=== PATIENT | male | born 1965 | race Caucasian/White ===

== ENCOUNTER 2016-10-12 14:05 | Emergency (ER) | payer OTHER ==
[~2016-10-12 14:05] MED LIST: HUMAN PROTHROMBIN COMPLX 500 UNIT/16 ML VIAL IV ONE
--- NOTE | 2016-10-12 14:54 | ED ---
General Adult HPI - General Chief complaint: Nausea/Vomiting/Diarrhea Stated complaint: vomiting Time Seen by Provider: 10/12/16 14:12 Source: patient, EMS Mode of arrival: EMS Limitations: no limitations - History of Present Illness Initial comments: Patient is a super morbidly obese 51-year-old with history of A. fib on Coumadin , hypertension, renal disease presenting with nausea/vomiting for 4 days. Patient states he vomited 5 times in that timeframe. Patient states his vomit is dark brown and possibly bloody in nature. Patient has not tried anything for his vomiting. Patient denies sick contacts, recent antibiotics or travel. Patient is also complaining of decreased urination. Patient also claimed bilateral lower extremity wounds for which he is chronically on Bactrim. Patient states similar symptoms happen 2-3 years ago for which he went to [facility] and was then transferred to [facility]. Patient cannot tell me why he was transferred to [facility] - only that they had "better resources" for him. Patient states he was hospitalized for a month and a half and on dialysis. 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 Patient denies fever, chills, chest pain, shortness breath, diarrhea, abdominal pain. - Related Data Home Medications Medication Instructions Recorded Confirmed Ammonium Lactate Cream [Lac-Hydrin 1 applic TOPICAL BID 10/12/16 10/12/16 12% Cream] Aspirin EC [Ecotrin Low Dose] 81 mg PO DAILY 10/12/16 10/12/16 Furosemide [Lasix] 20 mg PO BID 10/12/16 10/12/16 Hydrocodone/Acetaminophen [[place] 1 tab PO Q6H PRN 10/12/16 10/12/16 10-325] Levothyroxine Sodium [Synthroid] 50 mcg PO DAILY 10/12/16 10/12/16 Lisinopril [Prinivil] 20 mg PO DAILY 10/12/16 10/12/16 Loratadine [Claritin] 10 mg PO DAILY 10/12/16 10/12/16 Methylphenidate HCl [Ritalin] 20 mg PO BID 10/12/16 10/12/16 Metoprolol Tartrate [Lopressor] 100 mg PO BID 10/12/16 10/12/16 Promethaz-Cod 6.25-10 mg/5 ml 5 ml PO Q6H PRN 10/12/16 10/12/16 [Phenergan with Codeine] Sulfamethox-Tmp 800-160Mg [Bactrim 1 tab PO Q12HR 10/12/16 10/12/16 DS 800-160 mg] Warfarin [Coumadin] 7.5 mg PO DAILY 10/12/16 10/12/16 Allergies Allergy/AdvReac Type Severity Reaction Status Date / Time No Known Allergies Allergy Verified 10/12/16 14:54 Review of Systems ROS Statement: Those systems with pertinent positive or pertinent negative responses have been documented in the HPI. Constitutional: No fever and no chills. HENT: No congestion, no rhinorrhea and no sore throat. Eyes: No discharge and no redness. Respiratory: No cough and no shortness of breath. Cardiovascular: No chest pain and no palpitations. Gastrointestinal: +nausea, +vomiting, no abdominal pain and no diarrhea. Genitourinary: No dysuria and no hematuria. +Decreased urination Musculoskeletal: No back pain and no arthralgias. Skin: + Wounds. No pallor and no rash. Neurological: No dizziness and No headaches. ROS Other: All systems not noted in ROS Statement are negative. Past Medical History Past Medical History: Atrial Fibrillation, Hypertension, Renal Disease Additional Past Medical History / Comment(s): lyphademia, History of Any Multi-Drug Resistant Organisms: None Reported Additional Past Surgical History / Comment(s): bilateral feet surgery, Past Psychological History: Anxiety Smoking Status: Former smoker Past Alcohol Use History: Rare Past Drug Use History: None Reported General Exam - General Exam Comments Initial Comments: Constitutional: Patient is super morbidly obese with a BMI of 78. Patient does not appear in any distress. Head: Normocephalic and atraumatic. Eyes: Conjunctivae and EOM are normal. Right eye exhibits no discharge. Left eye exhibits no discharge. No scleral icterus. Neck: Normal range of motion. Neck supple. Cardiovascular: Irregularly irregular rhythm No murmur heard. Pulmonary/Chest: Effort normal and breath sounds normal. No respiratory distress. No wheezes. Abdominal: Soft. Morbidly obese abdomen with diffuse tenderness. No rebound or guarding. Musculoskeletal: Patient with limited range of motion secondary to obesity. Neurological: Patient alert and oriented to person, place, and time. Skin: Patient with bilateral lower extremity redness extending to mid thigh. Right leg with open sores with foul smell. Nursing notes and vitals reviewed. Limitations: no limitations Course Vital Signs 10/12/16 10/12/16 14:10 14:59 Temperature 97.0 F L 97.5 F L Pulse Rate 110 H 60 Respiratory 24 20 Rate Blood Pressure 187/81 O2 Sat by Pulse 91 L 95 Oximetry - Reevaluation(s) Reevaluation #1: 10/12/16 16:[address] Johnson regarding patient's care. No response. 10/12/16 16:46 Dr. Johnson called back stating that he is comfortable with patient going to [facility]. EKG Findings - EKG Comments: EKG Findings:: EKG done at 14:44 shows ventricular rate of 96 bpm. A [address] or T-wave changes. Incomplete right bundle branch block. QTC duration 462 ms. Medical Decision Making - Medical Decision Making Patient is a 51-year-old male with history of A. fib on Coumadin, chronic leg ulcers on Bactrim presenting with nausea vomiting for 4 days with 4 episodes of dark vomit concerning for blood. Patient has concern that he is going into renal failure as he did so to 3 years ago and ended up at [facility]. Laboratory work showed patient had a sodium of 130, potassium 8.2, chloride 94, bicarbonate 18, BUN 118, creatinine 9.6. INR returned showing greater than 10. Given patient's concern for hematemesis and open wounds lower extremity bleeding patient was given vitamin K and PCC. EKG was completed showing no QRS widening. Patient's potassium was treated with calcium gluconate, insulin and dextrose, and Lasix. Discussed care with patient's PCP Dr. Johnson as well as the patient. They're requesting to go to [facility]. Discussed physical exam and diagnostic tests with patient. Questions answered and patient is agreeable to transfer to [facility]. Discussed H&P and pertinent diagnostic tests with Dr. Aguilera at [facility] who agrees with plan and accepts admission of patient. Bed to be assigned upon call back. - Lab Data Result diagrams: 10/12/16 14:44 10/12/16 14:44 Lab Results 10/12/16 10/12/16 10/12/16 Range/Units 14:44 14:44 14:44 WBC 6.2 (3.8-10.6) k/uL RBC 5.39 (4.30-5.90) m/uL Hgb 15.1 (13.0-17.5) gm/dL Hct 52.2 (39.0-53.0) % MCV 96.8 (80.0-100.0) fL MCH 28.0 (25.0-35.0) pg MCHC 28.9 L (31.0-37.0) g/dL RDW 19.3 H (11.5-15.5) % Plt Count 237 (150-450) k/uL Neutrophils % 85 % Lymphocytes % 6 % Monocytes % 7 % Eosinophils % 1 % Basophils % 0 % Neutrophils # 5.3 (1.3-7.7) k/uL Lymphocytes # 0.4 L (1.0-4.8) k/uL Monocytes # 0.4 (0-1.0) k/uL Eosinophils # 0.1 (0-0.7) k/uL Basophils # 0.0 (0-0.2) k/uL Hypochromasia Marked Poikilocytosis Slight Anisocytosis Slight Macrocytosis Slight PT (9.0-12.0) sec INR (<1.1) APTT (22.0-30.0) sec Sodium 130 L (137-145) mmol/L Potassium 8.2 H* (3.5-5.1) mmol/L Chloride 94 L (98-107) mmol/L Carbon Dioxide 18 L (22-30) mmol/L Anion Gap 18 mmol/L BUN 118 H* (9-20) mg/dL Creatinine 9.60 H* (0.66-1.25) mg/dL Est GFR (MDRD) Af Amer 7 (>60 ml/min/1.73 sqM) Est GFR (MDRD) Non-Af 6 (>60 ml/min/1.73 sqM) Glucose 89 (74-99) mg/dL Calcium 9.3 (8.4-10.2) mg/dL Magnesium 3.2 H (1.6-2.3) mg/dL Total Bilirubin 1.4 H (0.2-1.3) mg/dL AST 42 (17-59) U/L ALT 29 (21-72) U/L Alkaline Phosphatase 88 (38-126) U/L Total Protein 7.1 (6.3-8.2) g/dL Albumin 3.4 L (3.5-5.0) g/dL Lipase 280 (23-300) U/L Urine Color Urine Appearance (Clear) Urine pH (5.0-8.0) Ur Specific [place] (1.001-1.035) Urine Protein (Negative) Urine Glucose (UA) (Negative) Urine Ketones (Negative) Urine Blood (Negative) Urine Nitrate (Negative) Urine Bilirubin (Negative) Urine Urobilinogen (<2.0) mg/dL Ur Leukocyte Esterase (Negative) Urine RBC (0-5) /hpf Urine WBC (0-5) /hpf Ur Squamous Epith Cells (0-4) /hpf Hyaline Casts (0-2) /lpf Urine Mucus (None) /hpf Blood Type O Positive Blood Type Recheck No Antibody Screen NEGATIVE Spec Expiration Date 10/15/2016 - 234310/12/16 10/12/16 Range/Units 14:44 16:20 WBC (3.8-10.6) k/uL RBC (4.30-5.90) m/uL Hgb (13.0-17.5) gm/dL Hct (39.0-53.0) % MCV (80.0-100.0) fL MCH (25.0-35.0) pg MCHC (31.0-37.0) g/dL RDW (11.5-15.5) % Plt Count (150-450) k/uL Neutrophils % % Lymphocytes % % Monocytes % % Eosinophils % % Basophils % % Neutrophils # (1.3-7.7) k/uL Lymphocytes # (1.0-4.8) k/uL Monocytes # (0-1.0) k/uL Eosinophils # (0-0.7) k/uL Basophils # (0-0.2) k/uL Hypochromasia Poikilocytosis Anisocytosis Macrocytosis PT 112.5 H (9.0-12.0) sec INR >10.0 H* (<1.1) APTT 42.6 H (22.0-30.0) sec Sodium (137-145) mmol/L Potassium (3.5-5.1) mmol/L Chloride (98-107) mmol/L Carbon Dioxide (22-30) mmol/L Anion Gap mmol/L BUN (9-20) mg/dL Creatinine (0.66-1.25) mg/dL Est GFR (MDRD) Af Amer (>60 ml/min/1.73 sqM) Est GFR (MDRD) Non-Af (>60 ml/min/1.73 sqM) Glucose (74-99) mg/dL Calcium (8.4-10.2) mg/dL Magnesium (1.6-2.3) mg/dL Total Bilirubin (0.2-1.3) mg/dL AST (17-59) U/L ALT (21-72) U/L Alkaline Phosphatase (38-126) U/L Total Protein (6.3-8.2) g/dL Albumin (3.5-5.0) g/dL Lipase (23-300) U/L Urine Color Red Urine Appearance Turbid (Clear) Urine pH 5.0 (5.0-8.0) Ur Specific [place] 1.012 (1.001-1.035) Urine Protein 1+ H (Negative) Urine Glucose (UA) Negative (Negative) Urine Ketones Negative (Negative) Urine Blood Large H (Negative) Urine Nitrate Negative (Negative) Urine Bilirubin Negative (Negative) Urine Urobilinogen 2.0 (<2.0) mg/dL Ur Leukocyte Esterase Moderate H (Negative) Urine RBC >182 H (0-5) /hpf Urine WBC 5 (0-5) /hpf Ur Squamous Epith Cells 1 (0-4) /hpf Hyaline Casts 7 H (0-2) /lpf Urine Mucus Rare H (None) /hpf Blood Type Blood Type Recheck Antibody Screen Spec Expiration Date Disposition Clinical Impression: Nausea & vomiting, Hematemesis, Elevated INR, Hyperkalemia, Acute renal failure , Cellulitis Disposition: OTHER INSTITUTION NOT DEFINED Condition: Fair - Out of Hospital Transfer - Req. Specs Out of Hospital Transfer - Requested Specifics: Medical ICU ([facility])
[2016-10-12] MEDS ORDERED: METOCLOPRAMIDE 5 MG/ML 2 ML VIAL IVP STA (15:28)
[2016-10-12] MEDS ORDERED: diphenhydrAMINE 50 MG/ML 1 ML VIAL IVP STA (15:28)
[2016-10-12] MEDS ORDERED: SODIUM CHLORIDE 0.9% 1,000 ML IV STA (15:29)
[2016-10-12 15:30] LABS: Partial Thromboplastin Time 42.6 sec (22.0-30.0); Prothrombin Time 112.5 sec (9.0-12.0)
[2016-10-12 15:33] LABS: Anisocytosis Slight; Basophils % (A) 0 %; CH 29.4; CHCM 30.5; Eosinophils # (A) 0.1 k/uL (0-0.7); Eosinophils % (A) 1 %; HCT 52.2 % (39.0-53.0); HDW 3.44; HGB 15.1 gm/dL (13.0-17.5); Hypochromasia Marked; Luc # (Auto) 0.05; Luc % (Auto) 1; Lymphocytes # (A) 0.4 k/uL (1.0-4.8); Lymphocytes % (A) 6 %; MCHC 28.9 g/dL (31.0-37.0); MCV 96.8 fL (80.0-100.0); Macrocytosis Slight; Mean Platelet Volume 8.8; Monocytes # (A) 0.4 k/uL (0-1.0); Monocytes % (A) 7 %; Neutrophils # (A) 5.3 k/uL (1.3-7.7); Neutrophils % (A) 85 %; Poikilocytosis Slight; RBC 5.39 m/uL (4.30-5.90); RDW 19.3 % (11.5-15.5); WBC 6.2 k/uL (3.8-10.6); WBC (Perox) 5.88
[2016-10-12 15:36] LABS: Calcium 9.3 mg/dL (8.4-10.2); Magnesium 3.2 mg/dL (1.6-2.3); Total Bilirubin 1.4 mg/dL (0.2-1.3); Total Protein 7.1 g/dL (6.3-8.2)
[2016-10-12 15:41] LABS: Potassium 8.2 mmol/L (3.5-5.1)
[2016-10-12] MEDS ORDERED: DEXTROSE 50%-WATER 50 ML SYRINGE IVP STA (15:42)
[2016-10-12] MEDS ORDERED: FUROSEMIDE 10 MG/ML 4 ML VIAL IV STA (15:42)
[2016-10-12 16:00] LABS: INR >10.0 (<1.1)
[2016-10-12] MEDS ORDERED: CALCIUM GLUCONATE 1,000 MG in SODIUM CHLORIDE 0.9% 100 ML IVPB ONE ×2 (16:00→18:45)
[2016-10-12] MEDS ORDERED: PHYTONADIONE 10 MG in SODIUM CHLORIDE 0.9% 50 ML IVPB STA (16:07)
[2016-10-12] MEDS ORDERED: HUMAN PROTHROMBIN COMPLX IV ONE ×2 (16:07→16:30)
[2016-10-12 16:40] LABS: Appearance,Urine Turbid (Clear); Bilirubin,Urine Negative (Negative); Glucose,Urine (UA) Negative (Negative); Ketones,Urine Negative (Negative); Leukocyte Esterase,Urine Moderate (Negative); Mucus,Urine Rare /hpf; Nitrite,Urine Negative (Negative); Particle Count 18348; Protein,Urine 1+ (Negative); RBC,Urine >182 /hpf (0-5); Specific Gravity,Urine 1.012 (1.001-1.035); Squamous Epithelial Cell,Urine 1 /hpf (0-4); UA Billing (MACRO vs. MICRO) MICRO; WBC,Urine 5 /hpf (0-5)
[2016-10-12 17:10] LABS: Potassium 7.5 mmol/L (3.5-5.1)
[2016-10-12 17:11] LABS: Phosphorous 11.3 mg/dL (2.5-4.5)
--- NOTE | 2016-10-12 18:10 | ED ---
Medical Decision Making - Medical Decision Making Potassium downturning. No EKG changes. - Lab Data Result diagrams: 10/12/16 14:44 10/12/16 16:30 Lab Results 10/12/16 10/12/16 10/12/16 Range/Units 14:44 14:44 14:44 WBC 6.2 (3.8-10.6) k/uL RBC 5.39 (4.30-5.90) m/uL Hgb 15.1 (13.0-17.5) gm/dL Hct 52.2 (39.0-53.0) % MCV 96.8 (80.0-100.0) fL MCH 28.0 (25.0-35.0) pg MCHC 28.9 L (31.0-37.0) g/dL RDW 19.3 H (11.5-15.5) % Plt Count 237 (150-450) k/uL Neutrophils % 85 % Lymphocytes % 6 % Monocytes % 7 % Eosinophils % 1 % Basophils % 0 % Neutrophils # 5.3 (1.3-7.7) k/uL Lymphocytes # 0.4 L (1.0-4.8) k/uL Monocytes # 0.4 (0-1.0) k/uL Eosinophils # 0.1 (0-0.7) k/uL Basophils # 0.0 (0-0.2) k/uL Hypochromasia Marked Poikilocytosis Slight Anisocytosis Slight Macrocytosis Slight PT (9.0-12.0) sec INR (<1.1) APTT (22.0-30.0) sec Sodium 130 L (137-145) mmol/L Potassium 8.2 H* (3.5-5.1) mmol/L Chloride 94 L (98-107) mmol/L Carbon Dioxide 18 L (22-30) mmol/L Anion Gap 18 mmol/L BUN 118 H* (9-20) mg/dL Creatinine 9.60 H* (0.66-1.25) mg/dL Est GFR (MDRD) Af Amer 7 (>60 ml/min/1.73 sqM) Est GFR (MDRD) Non-Af 6 (>60 ml/min/1.73 sqM) Glucose 89 (74-99) mg/dL Plasma Lactic Acid [place] (0.7-2.0) mmol/L Calcium 9.3 (8.4-10.2) mg/dL Phosphorus (2.5-4.5) mg/dL Magnesium 3.2 H (1.6-2.3) mg/dL Total Bilirubin 1.4 H (0.2-1.3) mg/dL AST 42 (17-59) U/L ALT 29 (21-72) U/L Alkaline Phosphatase 88 (38-126) U/L Total Protein 7.1 (6.3-8.2) g/dL Albumin 3.4 L (3.5-5.0) g/dL Lipase 280 (23-300) U/L Urine Color Urine Appearance (Clear) Urine pH (5.0-8.0) Ur Specific [place] (1.001-1.035) Urine Protein (Negative) Urine Glucose (UA) (Negative) Urine Ketones (Negative) Urine Blood (Negative) Urine Nitrate (Negative) Urine Bilirubin (Negative) Urine Urobilinogen (<2.0) mg/dL Ur Leukocyte Esterase (Negative) Urine RBC (0-5) /hpf Urine WBC (0-5) /hpf Ur Squamous Epith Cells (0-4) /hpf Hyaline Casts (0-2) /lpf Urine Mucus (None) /hpf Blood Type O Positive Blood Type Recheck No Antibody Screen NEGATIVE Spec Expiration Date 10/15/2016 - 234310/12/16 10/12/16 10/12/16 Range/Units 14:44 16:20 16:30 WBC (3.8-10.6) k/uL RBC (4.30-5.90) m/uL Hgb (13.0-17.5) gm/dL Hct (39.0-53.0) % MCV (80.0-100.0) fL MCH (25.0-35.0) pg MCHC (31.0-37.0) g/dL RDW (11.5-15.5) % Plt Count (150-450) k/uL Neutrophils % % Lymphocytes % % Monocytes % % Eosinophils % % Basophils % % Neutrophils # (1.3-7.7) k/uL Lymphocytes # (1.0-4.8) k/uL Monocytes # (0-1.0) k/uL Eosinophils # (0-0.7) k/uL Basophils # (0-0.2) k/uL Hypochromasia Poikilocytosis Anisocytosis Macrocytosis PT 112.5 H (9.0-12.0) sec INR >10.0 H* (<1.1) APTT 42.6 H (22.0-30.0) sec Sodium (137-145) mmol/L Potassium (3.5-5.1) mmol/L Chloride (98-107) mmol/L Carbon Dioxide (22-30) mmol/L Anion Gap mmol/L BUN (9-20) mg/dL Creatinine (0.66-1.25) mg/dL Est GFR (MDRD) Af Amer (>60 ml/min/1.73 sqM) Est GFR (MDRD) Non-Af (>60 ml/min/1.73 sqM) Glucose (74-99) mg/dL Plasma Lactic Acid [place] 1.5 (0.7-2.0) mmol/L Calcium (8.4-10.2) mg/dL Phosphorus (2.5-4.5) mg/dL Magnesium (1.6-2.3) mg/dL Total Bilirubin (0.2-1.3) mg/dL AST (17-59) U/L ALT (21-72) U/L Alkaline Phosphatase (38-126) U/L Total Protein (6.3-8.2) g/dL Albumin (3.5-5.0) g/dL Lipase (23-300) U/L Urine Color Red Urine Appearance Turbid (Clear) Urine pH 5.0 (5.0-8.0) Ur Specific [place] 1.012 (1.001-1.035) Urine Protein 1+ H (Negative) Urine Glucose (UA) Negative (Negative) Urine Ketones Negative (Negative) Urine Blood Large H (Negative) Urine Nitrate Negative (Negative) Urine Bilirubin Negative (Negative) Urine Urobilinogen 2.0 (<2.0) mg/dL Ur Leukocyte Esterase Moderate H (Negative) Urine RBC >182 H (0-5) /hpf Urine WBC 5 (0-5) /hpf Ur Squamous Epith Cells 1 (0-4) /hpf Hyaline Casts 7 H (0-2) /lpf Urine Mucus Rare H (None) /hpf Blood Type Blood Type Recheck Antibody Screen Spec Expiration Date 10/12/16 Range/Units 16:30 WBC (3.8-10.6) k/uL RBC (4.30-5.90) m/uL Hgb (13.0-17.5) gm/dL Hct (39.0-53.0) % MCV (80.0-100.0) fL MCH (25.0-35.0) pg MCHC (31.0-37.0) g/dL RDW (11.5-15.5) % Plt Count (150-450) k/uL Neutrophils % % Lymphocytes % % Monocytes % % Eosinophils % % Basophils % % Neutrophils # (1.3-7.7) k/uL Lymphocytes # (1.0-4.8) k/uL Monocytes # (0-1.0) k/uL Eosinophils # (0-0.7) k/uL Basophils # (0-0.2) k/uL Hypochromasia Poikilocytosis Anisocytosis Macrocytosis PT (9.0-12.0) sec INR (<1.1) APTT (22.0-30.0) sec Sodium (137-145) mmol/L Potassium 7.5 H* (3.5-5.1) mmol/L Chloride (98-107) mmol/L Carbon Dioxide (22-30) mmol/L Anion Gap mmol/L BUN (9-20) mg/dL Creatinine (0.66-1.25) mg/dL Est GFR (MDRD) Af Amer (>60 ml/min/1.73 sqM) Est GFR (MDRD) Non-Af (>60 ml/min/1.73 sqM) Glucose (74-99) mg/dL Plasma Lactic Acid [place] (0.7-2.0) mmol/L Calcium (8.4-10.2) mg/dL Phosphorus 11.3 H* (2.5-4.5) mg/dL Magnesium (1.6-2.3) mg/dL Total Bilirubin (0.2-1.3) mg/dL AST (17-59) U/L ALT (21-72) U/L Alkaline Phosphatase (38-126) U/L Total Protein (6.3-8.2) g/dL Albumin (3.5-5.0) g/dL Lipase (23-300) U/L Urine Color Urine Appearance (Clear) Urine pH (5.0-8.0) Ur Specific [place] (1.001-1.035) Urine Protein (Negative) Urine Glucose (UA) (Negative) Urine Ketones (Negative) Urine Blood (Negative) Urine Nitrate (Negative) Urine Bilirubin (Negative) Urine Urobilinogen (<2.0) mg/dL Ur Leukocyte Esterase (Negative) Urine RBC (0-5) /hpf Urine WBC (0-5) /hpf Ur Squamous Epith Cells (0-4) /hpf Hyaline Casts (0-2) /lpf Urine Mucus (None) /hpf Blood Type Blood Type Recheck Antibody Screen Spec Expiration Date Critical Care Time Critical Care Time: Yes Total Critical Care Time: 45 Critical Care Time: Critical care time was exclusive of separately billable procedures and treating other patients and teaching time. Critical-care was necessary to treat or prevent minute or life-threatening deterioration of the following conditions: Acute renal failure, hypercalcemia, acute blood loss in the setting of elevated INR greater than 10. Critical care time was spent her seen by me of the following activities: Discussion with primary care doctor and transferring facility, evaluation and reevaluation of patient's response to treatment, obtaining history, ordering and reviewing laboratory studies, monitoring vital signs, reevaluation of patient's condition . Disposition Clinical Impression: Nausea & vomiting, Hematemesis, Elevated INR, Hyperkalemia, Acute renal failure , Cellulitis Disposition: OTHER INSTITUTION NOT DEFINED Condition: Fair Referrals: Raul Johnson MD [Primary Care Provider] - 1-2 days - Out of Hospital Transfer - Req. Specs Out of Hospital Transfer - Requested Specifics: Medical ICU ([facility])
[2016-10-12 18:27] LABS: Prothrombin Time 19.2 sec (9.0-12.0)
[2016-10-12] MEDS: INSULIN REGULAR 100 UNIT/ML VIAL IV ONE ×2 (18:53→19:01)
[2016-10-12 20:18] VITALS: RESP 20
[2016-10-12 21:31] VITALS: BP 134/88; PULSE 89; TEMP 97.8
== END 2016-10-12 22:32 ==
LOC: EC 14:05
DX: N17.9 Acute kidney failure, unspecified (principal); K92.0 Hematemesis; E87.5 Hyperkalemia; R79.1 Abnormal coagulation profile; E66.01 Morbid (severe) obesity due to excess calories; I10 Essential (primary) hypertension; Z68.45 Body mass index [BMI] 70 or greater, adult; I48.91 Unspecified atrial fibrillation; L03.119 Cellulitis of unspecified part of limb; L97.909 Non-pressure chronic ulcer of unspecified part of unspecified lower leg with unspecified severity; Z79.01 Long term (current) use of anticoagulants; Z79.2 Long term (current) use of antibiotics; Z79.82 Long term (current) use of aspirin; Z79.899 Other long term (current) drug therapy; Z87.891 Personal history of nicotine dependence; Z99.2 Dependence on renal dialysis
CPT/HCPCS: 99291; 36415; 93005; 86900; 86901; 80053; 83605; 83690; 83735; 84100; 84132; 85025; 85610; 85730; 86850; 81001; 87040; 87086; 96365; 96366 ×4; 96367; 96375 ×4; 96361; J3430; J1200; J1940; J2765; J0610; C9132

== ENCOUNTER 2016-11-05 02:42 | Inpatient (IN) | payer OTHER ==
[2016-11-05] MEDS ORDERED: IPRATROPIUM-ALBUTEROL 3 ML NEB INHALATION STA (03:26)
[2016-11-05] MEDS ORDERED: PANTOPRAZOLE 40 MG/10 ML VIAL IVP STA (03:26)
[2016-11-05] MEDS ORDERED: ONDANSETRON 4 MG/2 ML VIAL IVP STA (03:26)
[2016-11-05] MEDS ORDERED: SODIUM CHLORIDE 0.9% 1,000 ML IV STA ×2 (03:26)
--- NOTE | 2016-11-05 03:28 | ED ---
General Adult HPI - General Chief complaint: GI Bleed Stated complaint: Rectal Bleed Time Seen by Provider: 11/05/16 03:26 Source: patient, EMS, RN notes reviewed, old records reviewed Mode of arrival: EMS Limitations: physical limitation - History of Present Illness Initial comments: This is a 51-year-old male by today for evaluation of GI bleed, blood in his stool. Patient states that he noticed blood in his stool earlier today. Patient normally does go to bedroom at the side of the bed but since has been hospitalizes viably get out of bed, distal medial thigh but They noticed blood in his stool earlier today. Patient has had no lightheadedness no dizziness no syncope. He is on blood thinners which she stopped taking 2 days ago secondary to elevated INR. No history of blood in his stool. No bowel pain no nausea or vomiting of blood, no nausea or vomiting. - Related Data Home Medications Medication Instructions Recorded Confirmed Ammonium Lactate Cream [Lac-Hydrin 1 applic TOPICAL BID 10/12/16 10/12/16 12% Cream] Aspirin EC [Ecotrin Low Dose] 81 mg PO DAILY 10/12/16 10/12/16 Hydrocodone/Acetaminophen [[place] 1 tab PO Q6H PRN 10/12/16 10/12/16 10-325] Loratadine [Claritin] 10 mg PO DAILY 10/12/16 10/12/16 Methylphenidate HCl [Ritalin] 20 mg PO BID 10/12/16 10/12/16 Metoprolol Tartrate [Lopressor] 50 mg PO BID 10/12/16 10/12/16 Promethaz-Cod 6.25-10 mg/5 ml 5 ml PO Q6H PRN 10/12/16 10/12/16 [Phenergan with Codeine] Warfarin [Coumadin] 7.5 mg PO DAILY 10/12/16 10/12/16 Allergies Allergy/AdvReac Type Severity Reaction Status Date / Time No Known Allergies Allergy Verified 10/12/16 14:54 Review of Systems ROS Statement: Those systems with pertinent positive or pertinent negative responses have been documented in the HPI. ROS Other: All systems not noted in ROS Statement are negative. Past Medical History Past Medical History: Atrial Fibrillation, Hypertension, Renal Disease Additional Past Medical History / Comment(s): lyphademia, cellulitis History of Any Multi-Drug Resistant Organisms: None Reported Additional Past Surgical History / Comment(s): bilateral feet surgery, Past Psychological History: Anxiety Smoking Status: Former smoker Past Alcohol Use History: Rare Past Drug Use History: None Reported General Exam Limitations: physical limitation General appearance: alert, in no apparent distress, obese Head exam: Present: atraumatic, normocephalic, normal inspection Eye exam: Present: normal appearance, PERRL, EOMI. Absent: scleral icterus, conjunctival injection, periorbital swelling ENT exam: Present: normal exam, mucous membranes moist Neck exam: Present: normal inspection. Absent: tenderness, meningismus, lymphadenopathy Respiratory exam: Present: normal lung sounds bilaterally. Absent: respiratory distress, wheezes, rales, rhonchi, stridor Cardiovascular Exam: Present: regular rate, normal rhythm, normal heart sounds. Absent: systolic murmur, diastolic murmur, rubs, gallop, clicks GI/Abdominal exam: Present: soft, normal bowel sounds. Absent: distended, tenderness, guarding, rebound, rigid Extremities exam: Present: normal inspection, full ROM, normal capillary refill. Absent: tenderness, pedal edema, joint swelling, calf tenderness Back exam: Present: normal inspection Neurological exam: Present: alert, oriented X3, CN II-XII intact Psychiatric exam: Present: normal affect, normal mood Skin exam: Present: warm, dry, intact, normal color. Absent: rash Course Vital Signs 11/05/16 02:57 Temperature 97.1 F L Pulse Rate 92 Respiratory 18 Rate Blood Pressure 103/51 O2 Sat by Pulse 92 L Oximetry - Reevaluation(s) Reevaluation #1: 11/05/16 03:38 Patient has had positive blood in his stool 11/05/16 03:38 , 2 bloody bowel movements, loose Reevaluation #2: 11/05/16 03:38 Patient does admit to be gained to feel lightheaded EKG Findings - EKG Comments: EKG Findings:: EKG shows normal sinus rhythm rate 93, OH 170, QRS 92, QTc 465. Repeat. EKG shows A. fib with RVR rate 132, QRS 96, QTC 471 Medical Decision Making - Medical Decision Making 48 female ER for possible GI bleed. Patient given transfusion and ER, [place] ICU for monitoring of Florinef status. Patient critically ill, hemodynamically unstable. - Radiology Data Radiology results: report reviewed (Chest x-ray portable negative for acute disease), image reviewed Critical Care Time Critical Care Time: Yes Total Critical Care Time: 31 Disposition Clinical Impression: Atrial fibrillation with RVR, Gastrointestinal hemorrhage, Anemia, Obesity Disposition: ADMITTED IP TO THIS HOSP Condition: Critical Instructions: Gastrointestinal Bleeding (ED) Referrals: Raul Johnson MD [Primary Care Provider] - 1-2 days
[2016-11-05] MEDS ORDERED: PHYTONADIONE 5 MG in SODIUM CHLORIDE 0.9% 50 ML IVPB STA ×2 (03:34→04:12)
[2016-11-05] MEDS ORDERED: NALOXONE 0.4 MG/ML 1 ML VIAL IV PRN (03:40)
[2016-11-05 03:46] LABS: Anisocytosis Slight; HDW 3.36; Hypochromasia Marked; MCV 99.2 fL (80.0-100.0); Macrocytosis Slight
[2016-11-05 03:55] LABS: Basophils # (A) 0.1 k/uL (0-0.2); Basophils % (A) 1 %; CH 29.1; CHCM 29.5; Eosinophils # (A) 0.4 k/uL (0-0.7); Eosinophils % (A) 4 %; Luc # (Auto) 0.18; Luc % (Auto) 2; Lymphocytes # (A) 1.5 k/uL (1.0-4.8); Lymphocytes % (A) 16 %; MCH 28.2 pg (25.0-35.0); MCHC 28.4 g/dL (31.0-37.0); Mean Platelet Volume 8.8; Monocytes # (A) 0.6 k/uL (0-1.0); Monocytes % (A) 7 %; Neutrophils # (A) 6.6 k/uL (1.3-7.7); Neutrophils % (A) 71 %; RBC 4.13 m/uL (4.30-5.90); RDW 18.8 % (11.5-15.5); WBC 9.3 k/uL (3.8-10.6); WBC (Perox) 9.33
[2016-11-05 04:00] LABS: Partial Thromboplastin Time 38.7 sec (22.0-30.0)
[2016-11-05] MEDS ORDERED: DILTIAZEM 5 MG/ML 5 ML VIAL IVP STA (04:01)
[2016-11-05 04:02] LABS: HGB 11.6 gm/dL (13.0-17.5)
[2016-11-05 04:08] LABS: Creatine Kinase 25 U/L (55-170)
[2016-11-05 04:09] LABS: Calcium 8.1 mg/dL (8.4-10.2); INR 8.2 (<1.1); Magnesium 1.9 mg/dL (1.6-2.3); Potassium 5.6 mmol/L (3.5-5.1); Total Bilirubin 0.9 mg/dL (0.2-1.3); Total Protein 5.7 g/dL (6.3-8.2)
[2016-11-05] MEDS ORDERED: cefTRIAXone 2,000 MG in SODIUM CHLORIDE 0.9% 100 ML IVPB STA (04:13)
[2016-11-05 04:20] LABS: Creatine Kinase MB 0.4 ng/mL (0.0-2.4); Troponin I <0.012 ng/mL (0.000-0.034)
--- NOTE | 2016-11-05 04:36 | XR ---
EXAMINATION TYPE: XR chest 1V portable DATE OF EXAM: 11/05/2016 4:28 AM COMPARISON: NONE HISTORY: Rectal bleeding TECHNIQUE: Single frontal view of the chest is obtained. FINDINGS: There is no heart failure nor confluent pneumonic infiltrate. There are chest leads. There is no evidence of pleural effusion. IMPRESSION: No active cardiopulmonary disease.
[2016-11-05 06:08] LABS: Glucose,Whole Blood 136 mg/dL (75-99)
[2016-11-05] MEDS ORDERED: SODIUM CHLORIDE 0.9% 1,000 ML IV ONE (07:15)
--- NOTE | 2016-11-05 08:54 | P.NPCON ---
History of Present Illness - Reason for Consult Consult date: 11/05/16 acute renal failure, chronic renal failure - Chief Complaint Gi bleed. - History of Present Illness 51 yo morbidly obese, bed bound at home male came in with bloody stools the past several days. He was hypotensive in the ED. Hb was 11.2. He is receiving 2 units PRBC. INR was 8.2 which he held two days ago. He has a creat 2.3. No previous creat to compare. however, He was at [facility] last month with Dialysis dependent KIRAN due to sepsis but did recover. He had a similar episode 3 years ago of HD dependent KIRAN due to sepsis. He never required outpatient HD. He does not follow with a [employer] supervisor. He is alert, no distress, not on pressor support. He denies NSAIDS. He was taking keflex. UA showed RBCs and +1 protein. Review of Systems All systems: negative Past Medical History Past Medical History: Atrial Fibrillation, Hypertension, Renal Disease Additional Past Medical History / Comment(s): lyphademia, cellulitis History of Any Multi-Drug Resistant Organisms: None Reported Additional Past Surgical History / Comment(s): bilateral feet surgery, Past Psychological History: Anxiety Smoking Status: Former smoker Past Alcohol Use History: Rare Past Drug Use History: None Reported Medications and Allergies Home Medications Medication Instructions Recorded Confirmed Type Ammonium Lactate Cream [Lac-Hydrin 1 applic TOPICAL BID 10/12/16 10/12/16 History 12% Cream] Aspirin EC [Ecotrin Low Dose] 81 mg PO DAILY 10/12/16 10/12/16 History Hydrocodone/Acetaminophen [[place] 1 tab PO Q6H PRN 10/12/16 10/12/16 History 10-325] Loratadine [Claritin] 10 mg PO DAILY 10/12/16 10/12/16 History Methylphenidate HCl [Ritalin] 20 mg PO BID 10/12/16 10/12/16 History Metoprolol Tartrate [Lopressor] 50 mg PO BID 10/12/16 10/12/16 History Promethaz-Cod 6.25-10 mg/5 ml 5 ml PO Q6H PRN 10/12/16 10/12/16 History [Phenergan with Codeine] Warfarin [Coumadin] 7.5 mg PO DAILY 10/12/16 10/12/16 History Allergies Allergy/AdvReac Type Severity Reaction Status Date / Time No Known Allergies Allergy Verified 10/12/16 14:54 Physical Exam Vitals: Vital Signs Temp Pulse Resp BP Pulse Ox 11/05/16 07:30 98.1 F 136 H 19 80/64 93 L 11/05/16 05:35 97.3 F L 80 16 140/80 94 L 11/05/16 05:20 97.1 F L 81 18 159/98 11/05/16 04:07 151 H 18 84/49 92 L Intake and Output 11/04/16 11/05/16 11/05/16 22:59 06:59 14:59 Intake Total 0 310 Balance 0 310 Intake: Blood Product 0 310 Rc Pheresis As-3 Unit 0 310 [id number] Rc Pheresis As3 Unit 0 [id number] - Constitutional General appearance: cooperative, no acute distress - Respiratory Respiratory: bilateral: diminished - Cardiovascular Rhythm: regular Heart sounds: normal: S1, S2 leg Peripheral Edema: bilateral: 1+ - Gastrointestinal General gastrointestinal: soft Results - Lab Results Most recent lab results Calcium 8.1 mg/dL (8.4-10.2) L 11/05/16 03:30 Magnesium 1.9 mg/dL (1.6-2.3) 11/05/16 03:30 11/05/16 03:30 11/05/16 03:30 Assessment and Plan Plan: Assessment 1. KIRAN (due to Ischemic ATN from GI Bleeding) vs. CKD (with h/o HD dependent KIRAN x2 in the past 3 years most recently last month). 2. Hemorrhagic Shock due to GI bleeding. 3. Hyperkalemia- Mild. 4. Morbid Obesity. Recommendations: 1. Continue 0.9NS 125ml/hr. 2. Check PVR. 3. Recheck lytes 4. GI evaluation. 5. Monitor UOP.
[2016-11-05] MEDS: NOREPINEPHRINE 4 MG in SODIUM CHLORIDE 0.9% 250 ML IV SCH ×4 (08:57→15:31)
[2016-11-05 09:15] LABS: ABG PH 7.34 (7.35-7.45)
[2016-11-05 09:16] LABS: ABG Base Excess -4.9 mmol/L; ABG HCO3 20 mmol/L (21-25); ABG PCO2 38 mmHg (35-45); ABG PO2 75 mmHg (83-108); ABG TCO2 21 mmol/L (19-24)
[2016-11-05] MEDS ORDERED: IV VANCOMYCIN PER PHARMACY 1 EACH MISC MISCELLANE PRN (09:44)
--- NOTE | 2016-11-05 09:52 | P.GSCN ---
History of Present Illness Consult date: 11/05/16 Reason for Consult: Inability to pass catheter History of present illness: The patient is a bedridden morbidly obese gentleman at 290 kg. He was admitted to the hospital with GI bleeding. The intensive care staff requests a Mcknight catheter in due to his morbid obesity and the nursing staff was unable to do so. I've been asked to see the patient. He has no other urologic history. He did have acute kidney injury due to sepsis treated at [facility] recently. He states that he has been urinating okay. Review of Systems As per the history and physical Past Medical History Past Medical History: Atrial Fibrillation, Hypertension, Renal Disease Additional Past Medical History / Comment(s): lyphademia, cellulitis History of Any Multi-Drug Resistant Organisms: None Reported Additional Past Surgical History / Comment(s): bilateral feet surgery, Past Psychological History: Anxiety Smoking Status: Former smoker Past Alcohol Use History: Rare Past Drug Use History: None Reported Medications and Allergies Home Medications Medication Instructions Recorded Confirmed Type Ammonium Lactate Cream [Lac-Hydrin 1 applic TOPICAL BID 10/12/16 10/12/16 History 12% Cream] Aspirin EC [Ecotrin Low Dose] 81 mg PO DAILY 10/12/16 10/12/16 History Hydrocodone/Acetaminophen [[place] 1 tab PO Q6H PRN 10/12/16 10/12/16 History 10-325] Loratadine [Claritin] 10 mg PO DAILY 10/12/16 10/12/16 History Methylphenidate HCl [Ritalin] 20 mg PO BID 10/12/16 10/12/16 History Metoprolol Tartrate [Lopressor] 50 mg PO BID 10/12/16 10/12/16 History Promethaz-Cod 6.25-10 mg/5 ml 5 ml PO Q6H PRN 10/12/16 10/12/16 History [Phenergan with Codeine] Warfarin [Coumadin] 7.5 mg PO DAILY 10/12/16 10/12/16 History Allergies Allergy/AdvReac Type Severity Reaction Status Date / Time No Known Allergies Allergy Verified 10/12/16 14:54 Surgical - Exam Vital Signs Temp Pulse Resp BP Pulse Ox 97.1 F L 92 18 103/51 92 L 11/05/16 02:57 11/05/16 02:57 11/05/16 02:57 11/05/16 02:57 11/05/16 02:57 - General moderate distress, obese - Eyes PERRL - ENT no hearing loss - Neck trachea midline - Respiratory normal respiratory effort - Cardiovascular Heart Rate: 135 - Abdomen Obese - Genitourinary Uncircumcised with markedly recessed phallus due to morbid obesity. - Integumentary Chronic lower extremity brawny edema - Psychiatric oriented to time, oriented to person, oriented to place Results - Labs 11/05/16 03:30 11/05/16 03:30 Abnormal Lab Results - Last 24 Hours (Table) 11/05/16 11/05/16 Range/Units 06:05 08:39 ABG pH 7.34 L (7.35-7.45) ABG pO2 75 L (83-108) mmHg ABG HCO3 20 L (21-25) mmol/L POC Glucose (mg/dL) 136 H (75-99) mg/dL Assessment and Plan Plan: Impression: Inability to pass catheter due to morbid obesity. Acute GI bleed. Morbid obesity. Multiple medical issues. Recommendations: Catheter placement.
--- NOTE | 2016-11-05 09:54 | P.PCN ---
Date of Procedure: 11/05/16 Preoperative Diagnosis: Inability to pass catheter due to morbid obesity Postoperative Diagnosis: Same Procedure(s) Performed: Catheter placement Anesthesia: none Surgeon: Carl Darnell Indications for Procedure: The patient is in the hospital with a GI bleed. He is morbidly obese and probably over 600 pounds. The nursing staff is asked for catheter placement Description of Procedure: The patient was prepped and draped sterilely. It requires 2 nurses to help retract the pannus and scrotum. I'm able to slowly expose the penis. I advanced a 16-Bengali Mcknight catheter into the bladder with concentrated cloudy looking urine. The catheter should remain in place until the medical staff wishes to remove it. No further urologic intervention is required.
[2016-11-05] MEDS ORDERED: SODIUM CHLORIDE 0.9% 99 ML with VASOPRESSIN 20 UNIT IV SCH ×2 (10:00)
[2016-11-05] MEDS ORDERED: PIPERACILLIN-TAZOBACTAM 3.375 GM in DEXTROSE/WATER 1 50ML.BAG IVPB SCH (10:00)
[2016-11-05] MEDS ORDERED: DEXTROSE 5% IN WATER 100 ML with AMIODARONE 150 MG IV ONE (10:45)
[2016-11-05] MEDS: IPRATROPIUM-ALBUTEROL 3 ML NEB INHALATION SCH ×5 (10:49→19:46)
[2016-11-05] MEDS: AMIODARONE 450 MG in DEXTROSE 5% IN WATER 250 ML IV SCH ×4 (10:58→17:00)
[2016-11-05] MEDS: SODIUM CHLORIDE 0.9% 1,000 ML IV SCH ×2 (10:59→16:32)
--- NOTE | 2016-11-05 11:57 | CONS ---
DATE OF CONSULTATION: 11/05/2016 REQUESTING PHYSICIAN: Dr. Cee. REASON FOR CONSULTATION: Acute GI bleed. HISTORY OF PRESENT ILLNESS: The patient is a 51-year-old morbidly obese male who was admitted to the hospital when he presented to the emergency room last night with hypotension and acute GI bleed. Apparently he started noticing maroon -colored stools around 7:00 p.m. last night and around 10:00 he had another episode of maroon-colored stools approximately 100 to 200 mL as per his . At that point he became very concerned and had an episode of coffee-ground emesis at home and came into the emergency room. While in the ER, he had another episode of large bloody bowel movement. He was noted to be hypotensive and was resuscitated with some fluid in the ER. His initial hemoglobin was 11, but about 2 weeks ago his hemoglobin was 15 g/dL. He has history of A. fib and has been on Coumadin and has been not taking it for 2 days as he was told his INR was high. In the ER, INR was 8.2 and received 10 mg of vitamin K and subsequently transferred to the intensive care unit. Since being in the ER, he did not have any further episodes of GI bleeding. He had an ( ) System in place and small amount of blood around the ( ) tubing noted. He has history of chronic renal insufficiency. Apparently he was diagnosed with sepsis and transferred to [facility] with acute renal failure last month where he had a dialysis catheter placed and underwent dialysis for a couple of days. After that his kidneys slowly recovered. The patient denies any history of GI bleed in the past. No history of upper endoscopy or colonoscopy. No recent NSAID use. No prior history of peptic ulcer disease. His past medical history is significant for A. fib, hypertension, chronic renal insufficiency, hyperlipidemia, cellulitis, morbid obesity. PAST SURGICAL HISTORY: Bilateral foot surgery, hemodialysis catheter placement last month at [facility] that was subsequently removed. SOCIAL HISTORY: Former smoker. No alcohol use. Medications at home: Aspirin, [place], Claritin, Ventolin, Lopressor, ( ), Coumadin. ALLERGIES: None. FAMILY HISTORY: Mother has hypertension. REVIEW OF SYSTEMS: CARDIOPULMONARY: No chest pain or shortness of breath. : No dysuria or hematuria. MUSCULOSKELETAL: Unremarkable. SKIN: Unremarkable. ENDOCRINE: Unremarkable. PSYCHIATRIC: Unremarkable. NEUROLOGY: Unremarkable. ENT/VISION: Unremarkable. CONSTITUTIONAL: Morbid obesity. HEMATOLOGY: Unremarkable. ENDOCRINE: Unremarkable. On physical examination he appears comfortable in no apparent distress. Vital signs are stable. Blood pressure is 80/48, pulse rate is 128, temperature 97. HEENT EXAMINATION: Unremarkable. Conjunctivae pink. Sclerae anicteric. Oral cavity, no lesions. NECK: No JVD or lymph node enlargement. Chest was clear to auscultation. HEART: Regular rate and rhythm. ABDOMEN: Soft. It was obese. Umbilical hernia noted. EXTREMITIES: There was some nonpitting edema identified. NEURO: Alert and oriented x3. No focal deficits. Labs done at the time of admission to the hospital: WBC 9.3, hemoglobin 11.6. Platelets are 340, PT 85, INR 8.2. BUN is 48, creatinine 2.3. AST, ALT, T-bili, alk phos are normal. Amylase and lipase are normal. IMPRESSION: 1. Acute gastrointestinal bleed, possibly upper in etiology. The patient had an episode of coffee-ground emesis and also had few episodes of maroon-colored stools. No prior history of gastrointestinal bleed. His hemoglobin was 11.3 and currently receiving 2 units of PRBC transfusion. Most likely we are dealing with upper gastrointestinal source of bleeding. 2. History of atrial fibrillation on Coumadin with severe coagulopathy. Presently Coumadin on hold. Received vitamin K and receiving 2 units of fresh frozen plasma. 3. Hypotension for which he is being started on IV Levophed. 4. Chronic renal insufficiency with an episode of acute renal failure requiring dialysis at [facility] a month ago and nephrology is following the patient. 5. Atrial fibrillation on Coumadin. RECOMMENDATIONS: 1. Start him on clear liquid diet. 2. Continue IV Protonix 40 mg q.12 hours. 3. Repeat CBC every 6 hours. 4. Repeat INR this evening. If needed will give him more vitamin K and fresh frozen plasma based on his symptoms. 5. If the INR is less than 1.5, we will proceed with an upper endoscopy tomorrow. The plan was discussed the patient as well as his who is at the bedside and they are agreeable to it. Thank you for this consultation.
[2016-11-05 12:28] LABS: Anisocytosis Slight; Basophils % (A) 0 %; CH 28.7; CHCM 29.3; Eosinophils # (A) 0.1 k/uL (0-0.7); Eosinophils % (A) 1 %; HCT 44.2 % (39.0-53.0); HDW 3.63; Hypochromasia Marked; Luc # (Auto) 0.21; Luc % (Auto) 2; Lymphocytes # (A) 1.1 k/uL (1.0-4.8); Lymphocytes % (A) 11 %; MCHC 29.4 g/dL (31.0-37.0); MCV 98.5 fL (80.0-100.0); Macrocytosis Slight; Mean Platelet Volume 8.1; Monocytes # (A) 0.6 k/uL (0-1.0); Monocytes % (A) 6 %; Neutrophils % (A) 80 %; Poikilocytosis Slight; RBC 4.49 m/uL (4.30-5.90); RDW 18.2 % (11.5-15.5); WBC (Perox) 10.38
[2016-11-05] MEDS ORDERED: SODIUM CHLORIDE 0.9% 500 ML IV ONE (12:31)
[2016-11-05] MEDS: SODIUM CHLORIDE 0.9% 99 ML with VASOPRESSIN 20 UNIT IV SCH ×2 (12:44)
--- NOTE | 2016-11-05 13:22 | P.CNPUL ---
History of Present Illness Consult date: 11/05/16 Requesting physician: Renetta Cee Reason for consult: other (Acute GI bleeding, Coumadin coagulopathy, and possible sepsis) Chief complaint: Bloody stools History of present illness: This is a 51-year-old white male morbidly obese, known history of multiple medical problems including chronic atrial fibrillation, hypertension, and chronic renal disease. Patient is also known to have history of lymphedema and chronic cellulitis patient is mostly bed ridden because of his morbid obesity and chronic cellulitis affecting most of his lower extremities. Patient was recently admitted to [facility] with sepsis and apparently at the time he was noted to have acute renal failure, patient required a short-term hemodialysis. And he was eventually discharged home. While inpatient patient was noted to have atrial fibrillation, and he was placed on outpatient Coumadin. His Coumadin has been monitored on a regular basis once every week by his primary care physician, but apparently last night the patient started noticing some bloody stools. Presented to the ER with bloody stools, hypertension, blood pressure at a time of admission was very low, his hemoglobin was 11.2, his pro time was significantly elevated, and the patient was given 2 units of packed RBCs, he was also placed on vasopressin and norepinephrine for low blood pressure patient is also noted to be in atrial fibrillation and RVR, and I have recommended amiodarone and a cardiology consultation. Empirically patient was placed on Zosyn and vancomycin mostly because of his presentation of severe cellulitis affecting both lower extremities with lymphedema and the possibility of sepsis and septic shock in addition to his GI bleeding is a definite possibility. Upon my evaluation, I placed a right brachial arterial line to be able to monitor the blood pressure, hence no blood pressure cuff can be used or can fit his arms. Patient has few peripheral lines in place, but considering his coagulopathy, I would hold on placement of central line at this point, until we at least correct some of his coagulopathy with vitamin K and fresh frozen plasma. Pulmonary-bedoya, the patient is noted to be a bit dyspneic, but ABG done early this morning on room air showed a pO2 of 75 pCO2 of 38 pH of 7.34. I believe his dyspnea is mostly related to his mild metabolic acidosis as noted follow-up CBC this morning showed a hemoglobin of 13.0 and his follow-up INR was 8.2. I have a strong feeling that once we correct his coagulopathy we will likely control the GI bleeding. Although gastroenterology on consultation, and I strongly doubt if they would attempt any invasive procedures at this point knowing that the patient is a bit hemodynamically unstable, and could very well be septic. Patient was also noted to have azotemia with a BUN of 48 and creatinine of 2.30. Review of Systems 14 point review of systems were obtained, please refer to pertinent positives and negatives in HPI. Past Medical History Past Medical History: Atrial Fibrillation, Dialysis, Hypertension, Renal Disease , Skin Disorder Additional Past Medical History / Comment(s): Lymphedema, cellulitis History of Any Multi-Drug Resistant Organisms: None Reported Additional Past Surgical History / Comment(s): bilateral feet surgery. per patient had pins in his feet. Past Anesthesia/Blood Transfusion Reactions: No Reported Reaction Past Psychological History: Anxiety Smoking Status: Former smoker Past Alcohol Use History: Rare Past Drug Use History: None Reported - Past Family History Father Family Medical History: Diabetes Mellitus Mother Additional Family Medical History / Comment(s): lost both of legs, blood clot surgeries, stent in leg, carotid endardectomy Medications and Allergies Home Medications Medication Instructions Recorded Confirmed Type Ammonium Lactate Cream [Lac-Hydrin 1 applic TOPICAL BID 10/12/16 11/05/16 History 12% Cream] Aspirin EC [Ecotrin Low Dose] 81 mg PO DAILY 10/12/16 11/05/16 History Hydrocodone/Acetaminophen [[place] 1 tab PO Q6H PRN 10/12/16 11/05/16 History 10-325] Loratadine [Claritin] 10 mg PO DAILY 10/12/16 11/05/16 History Methylphenidate HCl [Ritalin] 20 mg PO BID 10/12/16 11/05/16 History Promethaz-Cod 6.25-10 mg/5 ml 5 ml PO Q6H PRN 10/12/16 11/05/16 History [Phenergan with Codeine] Warfarin [Coumadin] 7.5 mg PO DAILY 10/12/16 11/05/16 History Metoprolol Tartrate [Lopressor] 50 mg PO BID 11/05/16 11/05/16 History Nystatin 100,000 Unit/gm Powd 1 applic TOPICAL BID 11/05/16 11/05/16 History [Mycostatin Powder] Tamsulosin HCl [Flomax] 0.4 mg PO DAILY 11/05/16 11/05/16 History Allergies Allergy/AdvReac Type Severity Reaction Status Date / Time No Known Allergies Allergy Verified 11/05/16 11:58 Physical Exam Vitals: Vital Signs Temp Pulse Pulse Resp BP BP Pulse Ox 11/05/16 12:10 134 H 20 92 L 11/05/16 12:00 119 H 20 11/05/16 11:30 137 H 19 93 L 11/05/16 11:20 97.6 F 131 H 19 92 L 11/05/16 11:00 97.6 F 115 H 19 92 L 11/05/16 10:40 97.5 F L 141 H 21 95/49 93 L 11/05/16 10:14 97.3 F L 138 H 16 133/80 94 L 11/05/16 10:00 97.8 F 136 H 19 88 L 11/05/16 09:50 97.6 F 124 H 15 88 L 11/05/16 09:40 97.3 F L 131 H 23 91 L 11/05/16 09:30 97.3 F L 128 H 26 H 90 L 11/05/16 09:15 133 H 17 113/60 90 L 11/05/16 09:00 144 H 15 55/39 90 L 11/05/16 08:45 150 H 34 H 80/64 92 L 11/05/16 08:32 97.3 F L 140 H 15 80/64 93 L 11/05/16 08:30 140 H 55 H 80/64 93 L 11/05/16 08:15 127 H 16 60/40 90 L 11/05/16 08:00 134 H 20 60/40 94 L 11/05/16 07:45 140 H 19 60/40 91 L 11/05/16 07:30 98.1 F 0 L 19 80/64 85 L 11/05/16 07:15 134 H 28 H 93 L 11/05/16 07:00 129 H 26 H 92 L 11/05/16 06:45 126 H 24 88 L 11/05/16 06:30 97.5 F L 147 H 19 43/31 92 L 11/05/16 05:35 97.3 F L 80 16 140/80 94 L 11/05/16 05:20 97.1 F L 81 18 159/98 11/05/16 04:07 151 H 18 84/49 92 L Intake and Output 11/04/16 11/05/16 11/05/16 22:59 06:59 14:59 Intake Total 100 2588.975 Output Total 50 Balance 100 2538.975 Intake: IV 200 Sodium Chloride 0.9% 1, 200 000 ml @ 20 mls/hr IV . Q24H [facility] Rx#:[id number] Intake, IV Titration 100 1458.975 Amount Norepinephrine 4 mg In 434.975 Sodium Chloride 0.9% 250 ml @ Titrate IV .Q0M [facility] Rx#:[id number] Piperacillin-Tazobactam 3 25.0 .375 gm In Dextrose/Water 1 50ml.bag @ 12.5 mls/hr IVPB Q8HR [facility] Rx#: [id number] Sodium Chloride 0.9% 1, 100 000 ml @ 150 mls/hr IV . Q6H40M [facility] Rx#:[id number] Sodium Chloride 0.9% 1, 999 000 ml @ 999 mls/hr IV . Q1H1M [facility] Rx#:[id number] Blood Product 0 930 Ffp 24 Cpd Unit 0 [id number] Rc Pheresis As-3 Unit 0 310 [id number] Rc Pheresis As3 Unit 310 [id number] Output: Urine 50 Other: Weight 289.85 kg Patient Weight 11/06/16 06:59 Weight 289.85 kg ABP, PAP, CO, CI - Last 8 Hours Arterial Blood Pressure 103/30 Arterial Blood Pressure 60/54 Arterial Blood Pressure 99/50 Arterial Blood Pressure 97/50 Arterial Blood Pressure 108/55 Arterial Blood Pressure 95/47 Arterial Blood Pressure 91/53 Arterial Blood Pressure 104/50 Arterial Blood Pressure 88/44 Arterial Blood Pressure 81/48 Physical examination revealed a 51-year-old morbidly obese male slightly dyspneic, but not in distress. HEENT short obese neck, narrow oropharynx, no neck masses, no JVD, poor dental hygiene noted. Chest: Diminished breath sounds and crackles at the bases no rhonchi, no wheezes. Cardiac: Irregular irregular rhythm, distant S1 and S2, no S3 gallop. Abdomen: Soft, obese, nontender, no megaly, no rebound, no guarding. However considering the size of the abdomen, physical examination is definitely suboptimal. Extremities: Significant lymphedema and cellulitis extending from the toes all the way up to the groin. Patient was also noted to have significant swelling of the scrotum requiring a urologist to place a Mcknight catheter. Neurologic: No gross focal neurologic deficit. Results - Laboratory Findings CBC and BMP: 11/05/16 12:20 11/05/16 03:30 ABG ABG pH 7.34 (7.35-7.45) L 11/05/16 08:39 ABG pCO2 38 mmHg (35-45) 11/05/16 08:39 ABG pO2 75 mmHg (83-108) L 11/05/16 08:39 ABG O2 Saturation 94.0 % (94-97) 11/05/16 08:39 PT/INR, D-dimer PT 85.0 sec (9.0-12.0) H 11/05/16 03:30 INR 8.2 (<1.1) H* 11/05/16 03:30 Abnormal lab findings: Abnormal Labs 11/05/16 11/05/16 11/05/16 06:05 08:39 12:20 MCHC 29.4 L RDW 18.2 H Neutrophils # 8.0 H ABG pH 7.34 L ABG pO2 75 L ABG HCO3 20 L POC Glucose (mg/dL) 136 H - Diagnostic Findings Chest x-ray: image reviewed (Chest x-ray is suboptimal considering the patient' s body size, however there is no gross unusual findings.) Assessment and Plan Plan: Impression: 1 strongly suspect acute sepsis and septic shock, primary source would be related to his cellulitis, I strongly doubt hypovolemic shock. 2 acute gastrointestinal bleeding, not clear whether this is upper GI or lower GI in nature, patient had 1 episode of coffee-ground emesis and a few episodes of maroon colored stools, which makes it likely to be an upper GI in nature, but definitely it is not clear at this point. Patient will likely need further workup. I believe the GI bleeding is most likely exacerbated by his Coumadin related coagulopathy. 3 acute Coumadin related coagulopathy and elevated INR requiring vitamin K and fresh frozen plasma. The purpose is to control his GI bleeding. 4 hypotension secondary to acute sepsis and septic shock it is also secondary to GI bleeding and secondary to atrial fibrillation with RVR. 5 history of chronic atrial fibrillation has been on Coumadin 6 acute on chronic renal failure with recent history of acute kidney injury for which she required dialysis at [facility]. Recommendation: Patient will be given blood products in the form of fresh frozen plasma to control his coagulopathy and packed RBCs with close follow-up on his hemoglobin to keep all was above 7. This will likely help us control the blood pressure, and help us control the bleeding. In the meantime patient will be placed on broad-spectrum antibiotics in the form of Zosyn and vancomycin and I will consult infectious disease to evaluate especially with his chronic cellulitis issue and chronic lymphedema. Blood cultures were ordered, we will also order urine cultures. A Mcknight catheter was placed by the urologist at bedside. Patient was placed on Protonix IV push every 12 hours for his GI bleeding and at the same time for his GI prophylaxis. Patient is yet to be seen by many consultants including gastroenterology, for his GI bleeding. Cardiology for his atrial fibrillation. Infectious disease for his cellulitis and sepsis. And he was already seen by urology for a Mcknight catheter placement. Prognosis is definitely poor and guarded, patient clearly requested from the nursing staff to be made DO NOT RESUSCITATE CODE STATUS. We'll continue to follow closely. Critical care time is 1 hour. Not including the time spent on placement of a right brachial arterial line. Time with Patient: Greater than 30
[2016-11-05] MEDS ORDERED: HUMAN PROTHROMBIN COMPLX 500 UNIT/16 ML VIAL IV ONE (13:35)
[2016-11-05 13:58] LABS: Appearance,Urine Turbid (Clear); Bacteria,Urine Rare /hpf; Bilirubin,Urine Negative (Negative); Glucose,Urine (UA) Negative (Negative); Ketones,Urine Trace (Negative); Leukocyte Esterase,Urine Large (Negative); Mucus,Urine Occasional /hpf; Nitrite,Urine Negative (Negative); Particle Count 9618; Protein,Urine 1+ (Negative); RBC,Urine 77 /hpf (0-5); Specific Gravity,Urine 1.016 (1.001-1.035); Squamous Epithelial Cell,Urine 1 /hpf (0-4); UA Billing (MACRO vs. MICRO) MICRO; WBC,Urine >182 /hpf (0-5)
--- NOTE | 2016-11-05 13:58 | CONS ---
DATE OF CONSULTATION: Demetri is a 51-year-old gentleman with morbid obesity, chronic atrial fibrillation, prior history of renal failure, who presented to hospital with GI bleed, atrial fibrillation with rapid ventricular rate and renal failure. Patient had coagulopathy on his initial admission with an INR of 8. Cardiology is consulted because of he is in A. fib with RVR. He is also hypotensive. Patient appears alert, awake, talking and denies any significant distress. Patient is currently on IV amiodarone with heart rates in the 120s, he is hypotensive and is on pressors. Patient has history of chronic A. fib and was started on Coumadin at [facility]. Past medical history significant for chronic A. fib, hypertension, renal failure. There is also a history of lymphedema, cellulitis. Medications include aspirin, Claritin, Ritalin, Lopressor, Coumadin. ALLERGIES: No known drug allergies. Family history is negative for premature coronary artery disease. Social history is negative for smoking. There is no history of EtOH abuse or drug abuse. REVIEW OF SYSTEMS: HEENT is unremarkable. CARDIAC: As described above. RESPIRATORY: As described above. GI: Significant for GI bleed. GENITOURINARY: Significant for renal failure. PSYCHOSOCIAL: Negative. ENDOCRINE: Negative. DERM: Significant for cellulitis. CONSTITUTIONAL: Negative. The rest of the system review is not relevant. On exam, heart rate is 120 beats per minute, blood pressure is 97/50, respiratory rate is 18. Chest exam reveals diminished air entry at the bases. Heart exam reveals first and second heart sounds, irregular rhythm. No murmur. Abdomen is soft, nontender. Exam of extremities reveal bilateral 1+ edema and changes of cellulitis. Labs show that the hemoglobin is 13, INR was 8.2. BUN is 48. Creatinine is 2.3. Potassium is 5.6. EKG shows atrial fibrillation with nonspecific ST-T wave changes. ASSESSMENT: 1. Chronic atrial fibrillation with poorly controlled ventricular rate. 2. Coagulopathy. 3. Morbid obesity. 4. Gastrointestinal bleed. 5. Hypotension. PLAN: I agree with intravenous amiodarone, hold off on Coumadin. If he has insurance coverage, we may switch him to one of the ( ) anticoagulants. He will continue with the amiodarone which should do both rate control and attempts at rhythm suppression. Continue with the Levophed.
[2016-11-05] MEDS ORDERED: VANCOMYCIN 2,500 MG in SODIUM CHLORIDE 0.9% 500 ML IVPB SCH (14:00)
[2016-11-05] MEDS ORDERED: HUMAN PROTHROMBIN COMPLX IV ONE ×2 (14:59→15:30)
[2016-11-05 16:59] LABS: INR 1.2 (<1.1); Prothrombin Time 11.9 sec (9.0-12.0)
--- NOTE | 2016-11-05 17:19 | P.HPIM ---
History of Present Illness H&P Date: 11/05/16 Chief Complaint: Bloody stools Physical 51-year-old gentleman that is morbidly obese over 600 pounds comes in to the hospital with complains of bloody bowel movements over the last 2 days. Patient has had a history of a recent complicated's severe sepsis at [facility] due to cellulitis of his lower extremity. Patient is currently maintained on Coumadin for his history of atrial fibrillation. Patient apparently also had Coumadin coagulopathy on the prior admission to [facility]. Maintained on CRRT due to an acute kidney injury and kidney function apparently improved prior to discharge. In the ER patient was noted to be in atrial fibrillation with rapid ventricular rate. Patient was also noted to have low blood pressure. Patient was started on vasopressor support with vasopressin and he will fed. Patient was also noted to have a Coumadin quadrant adenopathy with INR greater than 8 and bleeding per rectum. Patient is admitted to [facility]. There is some difficulty with placement of his Mcknight catheter. A 16-[place] catheter was inserted by urology. During the time of examination patient is currently on 0.3 of vasopressin and 20 of Levothroid Patient continues to be tachycardic. t patient denies having any current chest pain, difficulty breathing, abdominal pain. Review of Systems All systems: negative (Noted in HPI) Past Medical History Past Medical History: Atrial Fibrillation, Dialysis, Hypertension, Renal Disease , Skin Disorder Additional Past Medical History / Comment(s): Lymphedema, cellulitis History of Any Multi-Drug Resistant Organisms: None Reported Additional Past Surgical History / Comment(s): bilateral feet surgery. per patient had pins in his feet. Past Anesthesia/Blood Transfusion Reactions: No Reported Reaction Past Psychological History: Anxiety Smoking Status: Former smoker Past Alcohol Use History: Rare Past Drug Use History: None Reported - Past Family History Father Family Medical History: Diabetes Mellitus Mother Additional Family Medical History / Comment(s): lost both of legs, blood clot surgeries, stent in leg, carotid endardectomy Medications and Allergies Home Medications Medication Instructions Recorded Confirmed Type Ammonium Lactate Cream [Lac-Hydrin 1 applic TOPICAL BID 10/12/16 11/05/16 History 12% Cream] Aspirin EC [Ecotrin Low Dose] 81 mg PO DAILY 10/12/16 11/05/16 History Hydrocodone/Acetaminophen [[place] 1 tab PO Q6H PRN 10/12/16 11/05/16 History 10-325] Loratadine [Claritin] 10 mg PO DAILY 10/12/16 11/05/16 History Methylphenidate HCl [Ritalin] 20 mg PO BID 10/12/16 11/05/16 History Promethaz-Cod 6.25-10 mg/5 ml 5 ml PO Q6H PRN 10/12/16 11/05/16 History [Phenergan with Codeine] Warfarin [Coumadin] 7.5 mg PO DAILY 10/12/16 11/05/16 History Metoprolol Tartrate [Lopressor] 50 mg PO BID 11/05/16 11/05/16 History Nystatin 100,000 Unit/gm Powd 1 applic TOPICAL BID 11/05/16 11/05/16 History [Mycostatin Powder] Tamsulosin HCl [Flomax] 0.4 mg PO DAILY 11/05/16 11/05/16 History Allergies Allergy/AdvReac Type Severity Reaction Status Date / Time No Known Allergies Allergy Verified 11/05/16 11:58 Physical Exam Vitals: Vital Signs Temp Pulse Pulse Resp BP BP Pulse Ox 11/05/16 16:09 116 H 22 139/61 100 11/05/16 16:00 98.0 F 114 H 22 97 11/05/16 15:00 118 H 20 95 11/05/16 14:29 97.9 F 123 H 19 94/44 93 L 11/05/16 14:21 97.6 F 130 H 15 87/46 93 L 11/05/16 14:00 108 H 17 99 11/05/16 13:00 125 H 28 H 93 L 11/05/16 12:20 136 H 22 91 L 11/05/16 12:10 134 H 20 92 L 11/05/16 12:00 119 H 20 11/05/16 11:30 137 H 19 93 L 11/05/16 11:20 97.6 F 131 H 19 92 L 11/05/16 11:00 97.6 F 115 H 19 92 L 11/05/16 10:40 97.5 F L 141 H 21 95/49 93 L 11/05/16 10:14 97.3 F L 138 H 16 133/80 94 L 11/05/16 10:00 97.8 F 136 H 19 88 L 11/05/16 09:50 97.6 F 124 H 15 88 L 11/05/16 09:40 97.3 F L 131 H 23 91 L 11/05/16 09:30 97.3 F L 128 H 26 H 90 L 11/05/16 09:15 133 H 17 113/60 90 L 11/05/16 09:00 144 H 15 55/39 90 L 11/05/16 08:45 150 H 34 H 80/64 92 L 11/05/16 08:32 97.3 F L 140 H 15 80/64 93 L 11/05/16 08:30 140 H 55 H 80/64 93 L 11/05/16 08:15 127 H 16 60/40 90 L 11/05/16 08:00 134 H 20 60/40 94 L 11/05/16 07:45 140 H 19 60/40 91 L 11/05/16 07:30 98.1 F 0 L 19 80/64 85 L 11/05/16 07:15 134 H 28 H 93 L 11/05/16 07:00 129 H 26 H 92 L 11/05/16 06:45 126 H 24 88 L 11/05/16 06:30 97.5 F L 147 H 19 43/31 92 L 11/05/16 05:35 97.3 F L 80 16 140/80 94 L 11/05/16 05:20 97.1 F L 81 18 159/98 11/05/16 04:07 151 H 18 84/49 92 L Intake and Output 11/05/16 11/05/16 11/05/16 06:59 14:59 22:59 Intake Total 100 4190.492 1153.483 Output Total 95 85 Balance 100 4095.492 1068.483 Intake: IV 720 20 Sodium Chloride 0.9% 1, 720 20 000 ml @ 150 mls/hr IV . Q6H40M [facility] Rx#:[id number] Intake, IV Titration 100 1854.492 559.483 Amount Empty Bag 1 bag @ 8.4 mls 175 /min IV .Q21M ONE with Human Prothrombin Complx 5,400 unit Rx#:[id number] Norepinephrine 4 mg In 638.492 50.483 Sodium Chloride 0.9% 250 ml @ Titrate IV .Q0M [facility] Rx#:[id number] Piperacillin-Tazobactam 3 50.0 .375 gm In Dextrose/Water 1 50ml.bag @ 12.5 mls/hr IVPB Q8HR [facility] Rx#: [id number] Sodium Chloride 0.9% 1, 100 000 ml @ 150 mls/hr IV . Q6H40M [facility] Rx#:[id number] Sodium Chloride 0.9% 1, 999 000 ml @ 999 mls/hr IV . Q1H1M ONE Rx#:[id number] Vancomycin 2,500 mg In 167 334 Sodium Chloride 0.9% 500 ml @ 167 mls/hr IVPB Q24HR@1200 [facility] Rx#: [id number] Blood Product 0 1616 574 Ffp 24 Cpd Unit 0 287 [id number] Ffp 24 Cpd Unit 343 [id number] Rc Pheresis As-3 Unit 0 310 [id number] Rc Pheresis As3 Unit 310 [id number] Output: Urine 95 85 Other: Voiding Method Indwelling Catheter Indwelling Catheter Weight 289.85 kg Patient Weight 11/06/16 06:59 Weight 289.85 kg ABP, PAP, CO, CI - Last 8 Hours Arterial Blood Pressure 122/55 Arterial Blood Pressure 132/54 Arterial Blood Pressure 111/39 Arterial Blood Pressure 97/50 Arterial Blood Pressure 88/47 Arterial Blood Pressure 103/30 Arterial Blood Pressure 60/54 Arterial Blood Pressure 99/50 Arterial Blood Pressure 97/50 Arterial Blood Pressure 108/55 Arterial Blood Pressure 95/47 Arterial Blood Pressure 91/53 Arterial Blood Pressure 104/50 Arterial Blood Pressure 88/44 Arterial Blood Pressure 81/48 Appearance patient appears to be slightly anxious Neck is obese JVD is not appreciated Chest good air movement anteriorly no rhonchi or wheezing noted Heart S1-S2 heard irregularly irregular Abdomen is obese bowel sounds are not appreciated exam is limited due to body habitus Lower extremities chronic skin changes with erythema and some tenderness Patient has a FMS in place Mcknight catheter in place Neurologically moves all 4 extremities on command. No focal deficits appreciated. Results CBC & Chem 7: 11/05/16 12:20 11/05/16 03:30 Labs: Abnormal Lab Results - Last 24 Hours (Table) 11/05/16 11/05/16 11/05/16 Range/Units 06:05 08:39 12:20 MCHC 29.4 L (31.0-37.0) g/dL RDW 18.2 H (11.5-15.5) % Neutrophils # 8.0 H (1.3-7.7) k/uL ABG pH 7.34 L (7.35-7.45) ABG pO2 75 L (83-108) mmHg ABG HCO3 20 L (21-25) mmol/L POC Glucose (mg/dL) 136 H (75-99) mg/dL Urine Protein (Negative) Urine Ketones (Negative) Urine Blood (Negative) Ur Leukocyte Esterase (Negative) Urine RBC (0-5) /hpf Urine WBC (0-5) /hpf Urine WBC Clumps (None) /hpf Urine Bacteria (None) /hpf Hyaline Casts (0-2) /lpf Urine Mucus (None) /hpf 11/05/16 Range/Units 13:17 MCHC (31.0-37.0) g/dL RDW (11.5-15.5) % Neutrophils # (1.3-7.7) k/uL ABG pH (7.35-7.45) ABG pO2 (83-108) mmHg ABG HCO3 (21-25) mmol/L POC Glucose (mg/dL) (75-99) mg/dL Urine Protein 1+ H (Negative) Urine Ketones Trace H (Negative) Urine Blood Moderate H (Negative) Ur Leukocyte Esterase Large H (Negative) Urine RBC 77 H (0-5) /hpf Urine WBC >182 H (0-5) /hpf Urine WBC Clumps Many H (None) /hpf Urine Bacteria Rare H (None) /hpf Hyaline Casts 14 H (0-2) /lpf Urine Mucus Occasional H (None) /hpf Thrombosis Risk Factor Assmnt - Choose All That Apply Any of the Below Risk Factors Present?: Yes Each Factor Represents 1 point: Age 41-60 years, Medical pt on bed rest, Obesity (BMI >25), Sepsis (< 1month) Other Risk Factors: Yes Each Risk Factor Represents 2 Points: Patient confined to bed Each Risk Factor Represents 3 Points: Family history of DVT/PE Thrombosis Risk Factor Assessment Total Risk Factor Score: 9 Thrombosis Risk Factor Assessment Level: High Risk Assessment and Plan Plan: #1 shock likely suspect is secondary to severe sepsis due to 70 cellulitis. #2 morbid obesity #3 Coumadin coagulopathy #4 acute blood loss anemia secondary to GI bleed #5 chronic atrial fibrillation with rapid ventricular rate #6 acute on chronic kidney disease. #7 history of hypertension #8 umbilical hernia Plan This is a second episode of Coumadin coagulopathy. Other anticoagulants have not been studied in patients with BMI around 80. Discussed with the family regarding the risks and benefits of preventing strokes. May consider discontinuing Coumadin completely. Continue full ICU supportive care. Continue vasopressor support. ICU critical care recommendations appreciate a. Monitor urine output. Patient will be given Kccentra as patient is continuing to bleed through the FMS., 2 units of FFP were given and vitamin K were given. as patient is acutely bleeding with INR greater than 6 5000 units will be given.
[2016-11-05] MEDS ORDERED: TERBUTALINE 1 MG/ML VIAL SQ ONE (18:02)
[2016-11-05] MEDS ORDERED: NITROGLYCERIN OINT 1 INCH/GM PACKET TOPICAL ONE (18:02)
--- NOTE | 2016-11-05 19:15 | PCN ---
DATE OF PROCEDURE: PROCEDURE PERFORMED: Placement of a right brachial arterial line. PREOPERATIVE DIAGNOSIS: Acute sepsis, hypertension, acute gastrointestinal bleeding. POSTOPERATIVE DIAGNOSIS: Acute sepsis, hypertension, acute gastrointestinal bleeding. Anesthesia used: None deployed. PROCEDURE: The patient was placed in a supine position. The right arm was placed on a bedside table, the brachial region was prepared in a sterile fashion and drapes were applied. The right brachial artery was palpated, cannulated easily, and a guidewire was placed. A Cook's radial catheter was inserted over the guidewire, and the guidewire was removed. Good blood flow and good waveform were noted. No evidence of any immediate complications. Line was secured using 3-0 silk sutures.
[2016-11-05 19:30] LABS: Anisocytosis Slight; Basophils % (A) 0 %; CH 28.7; CHCM 29.5; Eosinophils # (A) 0.1 k/uL (0-0.7); Eosinophils % (A) 1 %; HCT 38.3 % (39.0-53.0); HDW 3.54; HGB 11.3 gm/dL (13.0-17.5); Hypochromasia Marked; Luc # (Auto) 0.14; Luc % (Auto) 2; Lymphocytes # (A) 0.9 k/uL (1.0-4.8); Lymphocytes % (A) 12 %; MCH 28.9 pg (25.0-35.0); MCHC 29.5 g/dL (31.0-37.0); Macrocytosis Slight; Mean Platelet Volume 8.5; Monocytes # (A) 0.4 k/uL (0-1.0); Monocytes % (A) 5 %; Neutrophils # (A) 5.9 k/uL (1.3-7.7); Neutrophils % (A) 80 %; Poikilocytosis Slight; RBC 3.91 m/uL (4.30-5.90); RDW 18.2 % (11.5-15.5); WBC 7.4 k/uL (3.8-10.6)
--- NOTE | 2016-11-05 20:22 | P.CONS ---
History of Present Illness - Reason for Consult Consult date: 11/05/16 - Chief Complaint Gastrointestinal bleed - History of Present Illness 51-year-old male who has a history of superobesity. Was seen in the wound healing Center in the past due to his significant skin condition to his legs and onto his flanks. He has a history of superobesity with a weight greater than 600 pounds. This was from his chronic edema and lack of care. He is now receiving much improved care in his skin is in much better shape. He now presents to the emergency center with concerns to gastrointestinal bleed with bright red blood per rectum. The patient has a very significant recent history or he was in the emergency center he was found evidence of sepsis as well as atrial fibrillation and acute renal failure. He was transported to [facility] for care. He underwent continuous renal replacement therapy and had recovery of his acute renal failure. He was home doing relatively well until the sudden onset of the gastrointestinal bleed. Is noted have evidence of significant Coumadin coagulopathy at this time. The patient was having difficulty passing urine and urology was consulted and they were able to pass a Mcknight catheter with multiple assistance allowing visualization of the genital. Patient's urinalysis is markedly abnormal and there is concerns to sepsis. Outside data is obtained and on October 03 urinalysis and culture were obtained. UA was also markedly abnormal and urine culture has evidence of a multidrug resistant Enterobacter cloacae. Review of Systems 51-year-old male with superobesity actually doing somewhat better with his skin since last being seen but is very weak and acutely ill at this time with his sepsis. HEENT:Denies headache or acute visual change. Denies sinus or mouth discomforts. Denies neck stiffness or pain. Denies significant oral cavity pain. Denies difficulty on swallowing. Lungs: Denies significant shortness of breath, cough, sputum production, or hemoptysis. Cardiovascular: Has shortness of breath. No chest pain. Does not have orthopnea Gastrointestinal:Denies nausea, vomiting, diarrhea, denies hematemesis. But is having melena and hematochezia Musculoskeletal: denies significant myalgias or arthralgias. No new joint swelling. Denies new back pain. Skin: Much improved from last evaluation but continues to have the chronic skin changes related to his superobesity and dependent edema Neuro: Denies headache or visual change. Denies any new onset weakness or difficulty with ambulation. Denies falls or seizures. Psychiatric: Some chronic depression Endocrine: Chronic fatigue and difficulty with superobesity Past Medical History Past Medical History: Atrial Fibrillation, Dialysis, Hypertension, Renal Disease , Skin Disorder Additional Past Medical History / Comment(s): Lymphedema, cellulitis History of Any Multi-Drug Resistant Organisms: None Reported Additional Past Surgical History / Comment(s): bilateral feet surgery. per patient had pins in his feet. Past Anesthesia/Blood Transfusion Reactions: No Reported Reaction Past Psychological History: Anxiety Additional Psychological History / Comment(s): . 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 Prior smoking history. No significant alcohol or recreational drug use. No travel. No experience. no animal exposures Smoking Status: Former smoker Past Alcohol Use History: Rare Past Drug Use History: None Reported - Past Family History Father Family Medical History: Diabetes Mellitus Mother Additional Family Medical History / Comment(s): lost both of legs, blood clot surgeries, stent in leg, carotid endardectomy Medications and Allergies Home Medications and Allergies Comment(s): Current Medications Acetaminophen/Hydrocodone Bitart (Comins 10) 1 each PO Q6H PRN PRN Reason: Pain Albuterol/Ipratropium (Duoneb 0.5 Mg-3 Mg/3 Ml Soln) 3 ml INHALATION RT-QID [facility] Last Admin: 11/05/16 19:46 Dose: Not Given Norepinephrine Bitartrate 4 mg (/ Sodium Chloride) 254 mls @ 0 mls/hr IV .Q0M BENITO; Titrate PRN Reason: Protocol Last Admin: 11/05/16 15:31 Dose: 12 mcg/min, 45.72 mls/hr Amiodarone HCl 450 mg/ (Dextrose/Water) 259 mls @ 34.53 mls/hr IV .Q7H31M BENITO; 1 MG/MIN PRN Reason: Protocol Stop: 11/06/16 11:01 Last Admin: 11/05/16 17:00 Dose: 0.5 mg/min, 17.26 mls/hr Sodium Chloride (Saline 0.9%) 1,000 mls @ 150 mls/hr IV .Q6H40M [facility] Last Admin: 11/05/16 16:32 Dose: 150 mls/hr Vasopressin 20 unit/ Sodium (Chloride) 100 mls @ 9 mls/hr IV .Q11H7M [facility] PRN Reason: 0.03 UNITS/MIN Last Admin: 11/05/16 12:44 Dose: 9 mls/hr Naloxone HCl (Narcan) 0.2 mg IV Q2M PRN PRN Reason: Opioid Reversal Pantoprazole Sodium (Protonix) 40 mg IV BID [facility] Triamcinolone Acetonide (Kenalog) 1 applic TOPICAL BID [facility] Home Medications Medication Instructions Recorded Confirmed Type Ammonium Lactate Cream [Lac-Hydrin 1 applic TOPICAL BID 10/12/16 11/05/16 History 12% Cream] Aspirin EC [Ecotrin Low Dose] 81 mg PO DAILY 10/12/16 11/05/16 History Hydrocodone/Acetaminophen [Comins 1 tab PO Q6H PRN 10/12/16 11/05/16 History 10-325] Loratadine [Claritin] 10 mg PO DAILY 10/12/16 11/05/16 History Methylphenidate HCl [Ritalin] 20 mg PO BID 10/12/16 11/05/16 History Promethaz-Cod 6.25-10 mg/5 ml 5 ml PO Q6H PRN 10/12/16 11/05/16 History [Phenergan with Codeine] Warfarin [Coumadin] 7.5 mg PO DAILY 10/12/16 11/05/16 History Metoprolol Tartrate [Lopressor] 50 mg PO BID 11/05/16 11/05/16 History Nystatin 100,000 Unit/gm Powd 1 applic TOPICAL BID 11/05/16 11/05/16 History [Mycostatin Powder] Tamsulosin HCl [Flomax] 0.4 mg PO DAILY 11/05/16 11/05/16 History Allergies Allergy/AdvReac Type Severity Reaction Status Date / Time No Known Allergies Allergy Verified 11/05/16 11:58 Physical Exam Vitals: Vital Signs Temp Pulse Pulse Resp BP BP Pulse Ox 11/05/16 19:00 101 H 18 95 11/05/16 18:00 117 H 16 96 11/05/16 17:00 95 16 95 11/05/16 16:09 116 H 22 139/61 100 11/05/16 16:00 98.0 F 114 H 22 97 11/05/16 15:00 118 H 20 95 11/05/16 14:29 97.9 F 123 H 19 94/44 93 L 11/05/16 14:21 97.6 F 130 H 15 87/46 93 L 11/05/16 14:00 108 H 17 99 11/05/16 13:00 125 H 28 H 93 L 11/05/16 12:20 136 H 22 91 L 11/05/16 12:10 134 H 20 92 L 11/05/16 12:00 119 H 20 11/05/16 11:30 137 H 19 93 L 11/05/16 11:20 97.6 F 131 H 19 92 L 11/05/16 11:00 97.6 F 115 H 19 92 L 11/05/16 10:40 97.5 F L 141 H 21 95/49 93 L 11/05/16 10:14 97.3 F L 138 H 16 133/80 94 L 11/05/16 10:00 97.8 F 136 H 19 88 L 11/05/16 09:50 97.6 F 124 H 15 88 L 11/05/16 09:40 97.3 F L 131 H 23 91 L 11/05/16 09:30 97.3 F L 128 H 26 H 90 L 11/05/16 09:15 133 H 17 113/60 90 L 11/05/16 09:00 144 H 15 55/39 90 L 11/05/16 08:45 150 H 34 H 80/64 92 L 11/05/16 08:32 97.3 F L 140 H 15 80/64 93 L 11/05/16 08:30 140 H 55 H 80/64 93 L 11/05/16 08:15 127 H 16 60/40 90 L 11/05/16 08:00 134 H 20 60/40 94 L 11/05/16 07:45 140 H 19 60/40 91 L 11/05/16 07:30 98.1 F 0 L 19 80/64 85 L 11/05/16 07:15 134 H 28 H 93 L 11/05/16 07:00 129 H 26 H 92 L 11/05/16 06:45 126 H 24 88 L 11/05/16 06:30 97.5 F L 147 H 19 43/31 92 L 11/05/16 05:35 97.3 F L 80 16 140/80 94 L 11/05/16 05:20 97.1 F L 81 18 159/98 11/05/16 04:07 151 H 18 84/49 92 L Intake and Output 11/05/16 11/05/16 11/05/16 06:59 14:59 22:59 Intake Total 100 4190.492 1811.814 Output Total 95 235 Balance 100 4095.492 1576.814 Intake: IV 720 470 Sodium Chloride 0.9% 1, 720 470 000 ml @ 150 mls/hr IV . Q6H40M [facility] Rx#:[id number] Intake, IV Titration 100 1854.492 767.814 Amount Amiodarone 450 mg In 208.331 Dextrose 5% in Water 250 ml @ 1 MG/MIN 34.53 mls/ hr IV .Q7H31M [facility] Rx#: [id number] Empty Bag 1 bag @ 8.4 mls 175 /min IV .Q21M [facility] with Human Prothrombin Complx 5,400 unit Rx#:[id number] Norepinephrine 4 mg In 638.492 50.483 Sodium Chloride 0.9% 250 ml @ Titrate IV .Q0M [facility] Rx#:[id number] Piperacillin-Tazobactam 3 50.0 .375 gm In Dextrose/Water 1 50ml.bag @ 12.5 mls/hr IVPB Q8HR [facility] Rx#: [id number] Sodium Chloride 0.9% 1, 100 000 ml @ 150 mls/hr IV . Q6H40M [facility] Rx#:[id number] Sodium Chloride 0.9% 1, 999 000 ml @ 999 mls/hr IV . Q1H1M [facility] Rx#:[id number] Vancomycin 2,500 mg In 167 334 Sodium Chloride 0.9% 500 ml @ 167 mls/hr IVPB Q24HR@1200 [facility] Rx#: [id number] Blood Product 0 1616 574 Ffp 24 Cpd Unit 0 287 [id number] Ffp 24 Cpd Unit 343 [id number] Rc Pheresis As-3 Unit 0 310 [id number] Rc Pheresis As3 Unit 310 [id number] Output: Urine 95 235 Other: Voiding Method Indwelling Catheter Indwelling Catheter Weight 289.85 kg Patient Weight 11/06/16 06:59 Weight 289.85 kg ABP, PAP, CO, CI - Last 8 Hours Arterial Blood Pressure 117/54 Arterial Blood Pressure 103/43 Arterial Blood Pressure 124/53 Arterial Blood Pressure 122/55 Arterial Blood Pressure 132/54 Arterial Blood Pressure 111/39 Arterial Blood Pressure 97/50 Arterial Blood Pressure 88/47 Arterial Blood Pressure 103/30 51-year-old male with superobesity seems comfortable HEENT: Anicteric conjunctiva are pink and moist nasal mucosa grossly intact without significant lesions, there is no thrush. Poor dentition Neck: The neck is supple without significant lymphadenopathy or thyromegaly. Lungs: Symmetrical air entry. Few basilar crackles. No severe wheezing. No dullness or egophony Heart: Irregular irregular. Audible S1-S2. 2/6 systolic murmur left sternal border. No heave or thrill. Abdomen: Obese with positive bowel sounds. Organs cannot be palpated through the immense abdominal wall Extremities: The upper extremities have excellent pulses they are symmetric, no significant petechiae or telangiectasia. No splinter hemorrhages were noted. The lower extremities are improved from the last evaluation. The chronic edema and changes have improved. The skin is considerably improved it is no longer with the extremely thickened scaled nature. Some minimal dryness is noted. Does have some mild erythema to the abdominal wall which is somewhat new. Ecchymosis is noted abdominal wall also at this area. Neuro: Awake alert oriented to person place and time. There are no acute new gross focal sensory motor deficits. Results CBC & Chem 7: 11/05/16 19:20 11/05/16 03:30 Labs: Abnormal Lab Results - Last 24 Hours (Table) 11/05/16 11/05/16 11/05/16 Range/Units 06:05 08:39 12:20 RBC (4.30-5.90) m/uL Hgb (13.0-17.5) gm/dL Hct (39.0-53.0) % MCHC 29.4 L (31.0-37.0) g/dL RDW 18.2 H (11.5-15.5) % Neutrophils # 8.0 H (1.3-7.7) k/uL Lymphocytes # (1.0-4.8) k/uL ABG pH 7.34 L (7.35-7.45) ABG pO2 75 L (83-108) mmHg ABG HCO3 20 L (21-25) mmol/L POC Glucose (mg/dL) 136 H (75-99) mg/dL Urine Protein (Negative) Urine Ketones (Negative) Urine Blood (Negative) Ur Leukocyte Esterase (Negative) Urine RBC (0-5) /hpf Urine WBC (0-5) /hpf Urine WBC Clumps (None) /hpf Urine Bacteria (None) /hpf Hyaline Casts (0-2) /lpf Urine Mucus (None) /hpf 11/05/16 11/05/16 Range/Units 13:17 19:20 RBC 3.91 L (4.30-5.90) m/uL Hgb 11.3 L (13.0-17.5) gm/dL Hct 38.3 L (39.0-53.0) % MCHC 29.5 L (31.0-37.0) g/dL RDW 18.2 H (11.5-15.5) % Neutrophils # (1.3-7.7) k/uL Lymphocytes # 0.9 L (1.0-4.8) k/uL ABG pH (7.35-7.45) ABG pO2 (83-108) mmHg ABG HCO3 (21-25) mmol/L POC Glucose (mg/dL) (75-99) mg/dL Urine Protein 1+ H (Negative) Urine Ketones Trace H (Negative) Urine Blood Moderate H (Negative) Ur Leukocyte Esterase Large H (Negative) Urine RBC 77 H (0-5) /hpf Urine WBC >182 H (0-5) /hpf Urine WBC Clumps Many H (None) /hpf Urine Bacteria Rare H (None) /hpf Hyaline Casts 14 H (0-2) /lpf Urine Mucus Occasional H (None) /hpf Laboratory Results WBC 7.4 k/uL (3.8-10.6) 11/05/16 19:20 RBC 3.91 m/uL (4.30-5.90) L 11/05/16 19:20 Hgb 11.3 gm/dL (13.0-17.5) L 11/05/16 19:20 Hct 38.3 % (39.0-53.0) L 11/05/16 19:20 MCV 98.0 fL (80.0-100.0) 11/05/16 19:20 MCH 28.9 pg (25.0-35.0) 11/05/16 19:20 MCHC 29.5 g/dL (31.0-37.0) L 11/05/16 19:20 RDW 18.2 % (11.5-15.5) H 11/05/16 19:20 Plt Count 311 k/uL (150-450) 11/05/16 19:20 Neutrophils % 80 % 11/05/16 19:20 Lymphocytes % 12 % 11/05/16 19:20 Monocytes % 5 % 11/05/16 19:20 Eosinophils % 1 % 11/05/16 19:20 Basophils % 0 % 11/05/16 19:20 Neutrophils # 5.9 k/uL (1.3-7.7) 11/05/16 19:20 Lymphocytes # 0.9 k/uL (1.0-4.8) L 11/05/16 19:20 Monocytes # 0.4 k/uL (0-1.0) 11/05/16 19:20 Eosinophils # 0.1 k/uL (0-0.7) 11/05/16 19:20 Basophils # 0.0 k/uL (0-0.2) 11/05/16 19:20 Hypochromasia Marked 11/05/16 19:20 Poikilocytosis Slight 11/05/16 19:20 Anisocytosis Slight 11/05/16 19:20 Macrocytosis Slight 11/05/16 19:20 PT 11.9 sec (9.0-12.0) 11/05/16 16:48 INR 1.2 (<1.1) 11/05/16 16:48 APTT 38.7 sec (22.0-30.0) H 11/05/16 03:30 Sample Site lrad 11/05/16 08:39 ABG pH 7.34 (7.35-7.45) L 11/05/16 08:39 ABG pCO2 38 mmHg (35-45) 11/05/16 08:39 ABG pO2 75 mmHg (83-108) L 11/05/16 08:39 ABG HCO3 20 mmol/L (21-25) L 11/05/16 08:39 ABG Total CO2 21 mmol/L (19-24) 11/05/16 08:39 ABG O2 Saturation 94.0 % (94-97) 11/05/16 08:39 ABG Base Excess -4.9 mmol/L 11/05/16 08:39 FiO2 21 % 11/05/16 08:39 Sodium 138 mmol/L (137-145) 11/05/16 03:30 Potassium 5.6 mmol/L (3.5-5.1) H 11/05/16 03:30 Chloride 105 mmol/L (98-107) 11/05/16 03:30 Carbon Dioxide 23 mmol/L (22-30) 11/05/16 03:30 Anion Gap 10 mmol/L 11/05/16 03:30 BUN 48 mg/dL (9-20) H 11/05/16 03:30 Creatinine 2.30 mg/dL (0.66-1.25) H 11/05/16 03:30 Est GFR (MDRD) Af Amer 36 (>60 ml/min/1.73 sqM) 11/05/16 03:30 Est GFR (MDRD) Non-Af 30 (>60 ml/min/1.73 sqM) 11/05/16 03:30 Glucose 121 mg/dL (74-99) H 11/05/16 03:30 POC Glucose (mg/dL) 136 mg/dL (75-99) H 11/05/16 06:05 POC Glu [employer] Broker ID Katharina Colon 11/05/16 06:05 Calcium 8.1 mg/dL (8.4-10.2) L 11/05/16 03:30 Magnesium 1.9 mg/dL (1.6-2.3) 11/05/16 03:30 Total Bilirubin 0.9 mg/dL (0.2-1.3) 11/05/16 03:30 AST 13 U/L (17-59) L 11/05/16 03:30 ALT 21 U/L (21-72) 11/05/16 03:30 Alkaline Phosphatase 88 U/L (38-126) 11/05/16 03:30 Total Creatine Kinase 25 U/L (55-170) L 11/05/16 03:30 CK-MB (CK-2) 0.4 ng/mL (0.0-2.4) 11/05/16 03:30 CK-MB (CK-2) Rel Index 1.6 11/05/16 03:30 Troponin I <0.012 ng/mL (0.000-0.034) 11/05/16 03:30 Total Protein 5.7 g/dL (6.3-8.2) L 11/05/16 03:30 Albumin 2.3 g/dL (3.5-5.0) L 11/05/16 03:30 Lipase 47 U/L (23-300) 11/05/16 03:30 Urine Color Yellow 11/05/16 13:17 Urine Appearance Turbid (Clear) 11/05/16 13:17 Urine pH 5.0 (5.0-8.0) 11/05/16 13:17 Ur Specific [place] 1.016 (1.001-1.035) 11/05/16 13:17 Urine Protein 1+ (Negative) H 11/05/16 13:17 Urine Glucose (UA) Negative (Negative) 11/05/16 13:17 Urine Ketones Trace (Negative) H 11/05/16 13:17 Urine Blood Moderate (Negative) H 11/05/16 13:17 Urine Nitrate Negative (Negative) 11/05/16 13:17 Urine Bilirubin Negative (Negative) 11/05/16 13:17 Urine Urobilinogen 2.0 mg/dL (<2.0) 11/05/16 13:17 Ur Leukocyte Esterase Large (Negative) H 11/05/16 13:17 Urine RBC 77 /hpf (0-5) H 11/05/16 13:17 Urine WBC >182 /hpf (0-5) H 11/05/16 13:17 Urine WBC Clumps Many /hpf (None) H 11/05/16 13:17 Ur Squamous Epith Cells 1 /hpf (0-4) 11/05/16 13:17 Urine Bacteria Rare /hpf (None) H 11/05/16 13:17 Hyaline Casts 14 /lpf (0-2) H 11/05/16 13:17 Urine Mucus Occasional /hpf (None) H 11/05/16 13:17 Blood Type O Positive 11/05/16 03:30 Blood Type Recheck No 11/05/16 03:30 Antibody Screen NEGATIVE 11/05/16 03:30 Crossmatch See Detail 11/05/16 03:30 Transfuse Plasma 11/05/16 11/05/16 03:30 Spec Expiration Date 11/08/2016 - 2330 11/05/16 03:30 Assessment and Plan (1) Septic shock Narrative/Plan: 51-year-old male who suffers from obesity presents to hospital with evidence of a 48 hour history of increasing amounts of melena or hematochezia. He was not having much abdominal pain. Both his recent history of hospitalization at the tertiary care center with acute renal failure he was brought into the emergency center. There is evidence of an elevated creatinine but improved from that from his last year visit when he was in acute renal failure. He does have evidence of the significant gastrointestinal bleeding and is being seen by surgery and gastroenterology. His Coumadin coagulopathy is improved with his INR going from 8.2-1.2 with this time. Plans for endoscopic evaluation if possible. The patient was seen in the outpatient setting and on November 03 had a urinalysis and culture performed. UA was markedly abnormal and urine culture shows evidence of a multidrug resistant Enterobacter cloacae. Consequently for antibiotic therapy current antibiotics are discontinued and carbapenem with meropenem is started with the dose that is hopefully acceptable for his current BMI. His atrial fibrillation has improved as his sepsis has been treated. Nephrology has evaluated without plans for renal replacement therapy at this time. Mcknight catheter is in place and urine output is being monitored closely Status: Acute (2) Gram negative sepsis Status: Acute (3) Enterobacter sepsis Status: Acute (4) Gastrointestinal hemorrhage Status: Acute
[2016-11-05] MEDS: MEROPENEM 1 GM in SODIUM CHLORIDE 0.9% 100 ML IVPB SCH (21:38)
[2016-11-05] MEDS: TRIAMCINOLONE 0.1% CREAM 80 GM TUBE TOPICAL SCH (21:38)
[2016-11-05] MEDS: HYDROcodone/APAP 10-325MG 1 EACH TAB PO PRN (21:39)
[2016-11-06] MEDS: PANTOPRAZOLE 40 MG/10 ML VIAL IV SCH ×3 (00:12→20:50)
[2016-11-06] MEDS: SODIUM CHLORIDE 0.9% 99 ML with VASOPRESSIN 20 UNIT IV SCH ×2 (00:13)
[2016-11-06] MEDS: SODIUM CHLORIDE 0.9% 1,000 ML IV SCH ×4 (00:14→23:49)
[2016-11-06] MEDS: NOREPINEPHRINE 4 MG in SODIUM CHLORIDE 0.9% 250 ML IV SCH ×4 (00:14→23:48)
[2016-11-06 00:44] LABS: Anisocytosis Slight; Basophils % (A) 0 %; CH 28.7; CHCM 29.3; Eosinophils # (A) 0.2 k/uL (0-0.7); Eosinophils % (A) 2 %; HCT 36.9 % (39.0-53.0); HDW 3.51; HGB 11.1 gm/dL (13.0-17.5); Hypochromasia Marked; Luc # (Auto) 0.18; Luc % (Auto) 2; Lymphocytes # (A) 0.8 k/uL (1.0-4.8); Lymphocytes % (A) 9 %; MCH 29.6 pg (25.0-35.0); MCHC 30.1 g/dL (31.0-37.0); MCV 98.2 fL (80.0-100.0); Macrocytosis Slight; Mean Platelet Volume 7.8; Monocytes # (A) 0.3 k/uL (0-1.0); Monocytes % (A) 4 %; Neutrophils # (A) 7.3 k/uL (1.3-7.7); Neutrophils % (A) 82 %; Poikilocytosis Slight; RBC 3.76 m/uL (4.30-5.90); RDW 17.9 % (11.5-15.5); WBC 8.8 k/uL (3.8-10.6); WBC (Perox) 8.83
[2016-11-06 04:58] LABS: Anisocytosis Slight; Basophils % (A) 0 %; CH 28.7; CHCM 29.2; Eosinophils # (A) 0.4 k/uL (0-0.7); Eosinophils % (A) 4 %; HCT 37.8 % (39.0-53.0); HGB 11.2 gm/dL (13.0-17.5); Hypochromasia Marked; Luc # (Auto) 0.22; Luc % (Auto) 2; Lymphocytes # (A) 0.8 k/uL (1.0-4.8); Lymphocytes % (A) 8 %; MCH 29.2 pg (25.0-35.0); MCHC 29.7 g/dL (31.0-37.0); MCV 98.6 fL (80.0-100.0); Macrocytosis Slight; Mean Platelet Volume 8.1; Monocytes # (A) 0.4 k/uL (0-1.0); Monocytes % (A) 4 %; Neutrophils # (A) 8.3 k/uL (1.3-7.7); Neutrophils % (A) 82 %; Poikilocytosis Slight; RBC 3.83 m/uL (4.30-5.90); WBC 10.2 k/uL (3.8-10.6); WBC (Perox) 10.33
[2016-11-06 05:01] LABS: Calcium 8.1 mg/dL (8.4-10.2); Magnesium 1.7 mg/dL (1.6-2.3); Phosphorous 4.4 mg/dL (2.5-4.5); Potassium 5.3 mmol/L (3.5-5.1)
[2016-11-06 05:04] LABS: INR 1.2 (<1.1); Partial Thromboplastin Time 22.6 sec (22.0-30.0); Prothrombin Time 12.2 sec (9.0-12.0)
[2016-11-06] MEDS: AMIODARONE 450 MG in DEXTROSE 5% IN WATER 250 ML IV SCH ×4 (06:16→09:27)
[2016-11-06] MEDS: IPRATROPIUM-ALBUTEROL 3 ML NEB INHALATION SCH ×4 (08:54→19:10)
[2016-11-06] MEDS: TRIAMCINOLONE 0.1% CREAM 80 GM TUBE TOPICAL SCH ×2 (09:27→20:51)
[2016-11-06] MEDS: MEROPENEM 1 GM in SODIUM CHLORIDE 0.9% 100 ML IVPB SCH ×2 (09:27→21:06)
--- NOTE | 2016-11-06 11:04 | P.PN ---
Subjective This is a 51-year-old white male morbidly obese, known history of multiple medical problems including chronic atrial fibrillation, hypertension, and chronic renal disease. Patient is also known to have history of lymphedema and chronic cellulitis patient is mostly bed ridden because of his morbid obesity and chronic cellulitis affecting most of his lower extremities. Patient was recently admitted to [facility] with sepsis and apparently at the time he was noted to have acute renal failure, patient required a short-term hemodialysis. And he was eventually discharged home. While inpatient patient was noted to have atrial fibrillation, and he was placed on outpatient Coumadin. His Coumadin has been monitored on a regular basis once every week by his primary care physician, but apparently last night the patient started noticing some bloody stools. Presented to the ER with bloody stools, hypertension, blood pressure at a time of admission was very low, his hemoglobin was 11.2, his pro time was significantly elevated, and the patient was given 2 units of packed RBCs, he was also placed on vasopressin and norepinephrine for low blood pressure patient is also noted to be in atrial fibrillation and RVR, and recommended amiodarone and a cardiology consultation. Empirically patient was placed on Zosyn and vancomycin mostly because of his presentation of severe cellulitis affecting both lower extremities with lymphedema and the possibility of sepsis and septic shock in addition to his GI bleeding is a definite possibility. Dr. Vázquez placed a right brachial arterial line to be able to monitor the blood pressure, hence no blood pressure cuff can be used or can fit his arms. Patient has few peripheral lines in place , but considering his coagulopathy, he held on placement of central line at this point, until we at least correct some of his coagulopathy with vitamin K and fresh frozen plasma. Pulmonary-bedoya, the patient is noted to be a bit dyspneic, but ABG done yesterday morning on room air showed a pO2 of 75 pCO2 of 38 pH of 7.34. His dyspnea is mostly related to his mild metabolic acidosis as noted follow-up CBC yesterday showed a hemoglobin of 13.0 and his follow-up INR was 8.2. Once we correct his coagulopathy we will likely control the GI bleeding. Although gastroenterology on consultation, doubt if they would attempt any invasive procedures at this point knowing that the patient is a bit hemodynamically unstable, and could very well be septic. Patient was also noted to have azotemia with a BUN of 48 and creatinine of 2.30. The patient is seen again today 11/06/2016 in follow-up. He remains in the intensive care unit. He is awake and alert in no acute distress. He has a 0.9 normal saline at 150 MLS per hour. He is on vasopressin at 0.03 g and levothyroid at 12 g. He is also on amiodarone at 0.5 mg. The plan is for an EGD at 11 AM today. The patient's coagulopathy has been corrected. He is currently INR at 1.2. He is status post 2 units of packed red blood cells and 2 units of fresh frozen plasma. He was given vitamin K as well. He was also given Kcentra (prothrombin complex concentrate). His current hemoglobin is 11.2. He is maintaining good O2 saturations in the upper 90s on 2 L/m per nasal cannula. Afebrile. No leukocytosis. He remains on meropenem for history of MDRO in the urine, Enterobacter cloacae. Objective - Vital Signs Vital signs: Vital Signs Temp 98.0 F 11/06/16 08:00 Pulse 117 H 11/06/16 10:00 Resp 13 11/06/16 10:00 BP 139/61 11/05/16 16:09 Pulse Ox 98 11/06/16 10:00 Intake & Output 11/05/16 11/06/16 11/06/16 18:59 06:59 18:59 Intake Total 6002.306 2966.983 254.468 Output Total 330 450 325 Balance 5672.306 2516.983 -70.532 Weight 289.85 kg 289.85 kg Intake: IV 1190 1650 80 Sodium Chloride 0.9% 1, 1190 1650 80 000 ml @ 150 mls/hr IV . Q6H40M [facility] Rx#:[id number] Intake, IV Titration 2622.306 836.983 174.468 Amount Amiodarone 450 mg In 208.331 228.983 54.944 Dextrose 5% in Water 250 ml @ 1 MG/MIN 34.53 mls/ hr IV .Q7H31M [facility] Rx#: [id number] Empty Bag 1 bag @ 8.4 mls 175 /min IV .Q21M ONE with Human Prothrombin Complx 5,400 unit Rx#:[id number] Meropenem 1 gm In Sodium 100 Chloride 0.9% 100 ml @ 100 mls/hr IVPB Q12HR [facility] Rx#:[id number] Meropenem 1 gm In Sodium 100 Chloride 0.9% 100 ml @ 100 mls/hr IVPB Q8HR [facility] Rx#:[id number] Norepinephrine 4 mg In 688.975 508.000 1.524 Sodium Chloride 0.9% 250 ml @ Titrate IV .Q0M [facility] Rx#:[id number] Piperacillin-Tazobactam 3 50.0 .375 gm In Dextrose/Water 1 50ml.bag @ 12.5 mls/hr IVPB Q8HR [facility] Rx#: [id number] Sodium Chloride 0.9% 1, 999 000 ml @ 999 mls/hr IV . Q1H1M [facility] Rx#:[id number] Sodium Chloride 0.9% 99 18 ml @ 0.03 UNITS/MIN 9 mls /hr IV .Q11H7M [facility] with Vasopressin 20 unit Rx#: [id number] Vancomycin 2,500 mg In 501 Sodium Chloride 0.9% 500 ml @ 167 mls/hr IVPB Q24HR@1200 [facility] Rx#: [id number] Oral 480 Blood Product 2190 Ffp 24 Cpd Unit 287 [id number] Ffp 24 Cpd Unit 343 [id number] Rc Pheresis As-3 Unit 310 [id number] Rc Pheresis As3 Unit 310 [id number] Output: Urine 330 450 325 Other: Voiding Method Indwelling Catheter Indwelling Catheter ABP, PAP, CO, CI - Last Documented Arterial Blood Pressure 95/48 - Exam GENERAL EXAM: Morbidly obese. BMI 79.9 kg. Alert, fairly comfortable in no apparent distress. HEAD: Normocephalic. EYES: Normal reaction of pupils, equal size. NOSE: Clear with pink turbinates. THROAT: There is crowding the posterior pharynx. No erythema or exudates. NECK: Short. No masses, no JVD. CHEST: No chest wall deformity. LUNGS: Equal air entry with faint crackles in the posterior bases. CVS: S1 and S2 normal with no audible murmurs, regular rhythm. ABDOMEN: Obese, normal bowel sounds, no guarding or rigidity. Extremities: There are changes of chronic venous stasis of the lower extremities. Discoloration. Peripheral pulses are intact. - Labs CBC & Chem 7: 11/06/16 04:40 11/06/16 04:40 Labs: Abnormal Lab Results - Last 24 Hours (Table) 11/05/16 11/05/16 11/05/16 Range/Units 12:20 13:17 19:20 RBC 3.91 L (4.30-5.90) m/uL Hgb 11.3 L (13.0-17.5) gm/dL Hct 38.3 L (39.0-53.0) % MCHC 29.4 L 29.5 L (31.0-37.0) g/dL RDW 18.2 H 18.2 H (11.5-15.5) % Neutrophils # 8.0 H (1.3-7.7) k/uL Lymphocytes # 0.9 L (1.0-4.8) k/uL PT (9.0-12.0) sec Potassium (3.5-5.1) mmol/L Chloride (98-107) mmol/L Carbon Dioxide (22-30) mmol/L BUN (9-20) mg/dL Creatinine (0.66-1.25) mg/dL Glucose (74-99) mg/dL Calcium (8.4-10.2) mg/dL Urine Protein 1+ H (Negative) Urine Ketones Trace H (Negative) Urine Blood Moderate H (Negative) Ur Leukocyte Esterase Large H (Negative) Urine RBC 77 H (0-5) /hpf Urine WBC >182 H (0-5) /hpf Urine WBC Clumps Many H (None) /hpf Urine Bacteria Rare H (None) /hpf Hyaline Casts 14 H (0-2) /lpf Urine Mucus Occasional H (None) /hpf 11/06/16 11/06/16 11/06/16 Range/Units 00:30 04:40 04:40 RBC 3.76 L 3.83 L (4.30-5.90) m/uL Hgb 11.1 L 11.2 L (13.0-17.5) gm/dL Hct 36.9 L 37.8 L (39.0-53.0) % MCHC 30.1 L 29.7 L (31.0-37.0) g/dL RDW 17.9 H 18.0 H (11.5-15.5) % Neutrophils # 8.3 H (1.3-7.7) k/uL Lymphocytes # 0.8 L 0.8 L (1.0-4.8) k/uL PT 12.2 H (9.0-12.0) sec Potassium (3.5-5.1) mmol/L Chloride (98-107) mmol/L Carbon Dioxide (22-30) mmol/L BUN (9-20) mg/dL Creatinine (0.66-1.25) mg/dL Glucose (74-99) mg/dL Calcium (8.4-10.2) mg/dL Urine Protein (Negative) Urine Ketones (Negative) Urine Blood (Negative) Ur Leukocyte Esterase (Negative) Urine RBC (0-5) /hpf Urine WBC (0-5) /hpf Urine WBC Clumps (None) /hpf Urine Bacteria (None) /hpf Hyaline Casts (0-2) /lpf Urine Mucus (None) /hpf 11/06/16 Range/Units 04:40 RBC (4.30-5.90) m/uL Hgb (13.0-17.5) gm/dL Hct (39.0-53.0) % MCHC (31.0-37.0) g/dL RDW (11.5-15.5) % Neutrophils # (1.3-7.7) k/uL Lymphocytes # (1.0-4.8) k/uL PT (9.0-12.0) sec Potassium 5.3 H (3.5-5.1) mmol/L Chloride 108 H (98-107) mmol/L Carbon Dioxide 21 L (22-30) mmol/L BUN 50 H (9-20) mg/dL Creatinine 2.40 H (0.66-1.25) mg/dL Glucose 138 H (74-99) mg/dL Calcium 8.1 L (8.4-10.2) mg/dL Urine Protein (Negative) Urine Ketones (Negative) Urine Blood (Negative) Ur Leukocyte Esterase (Negative) Urine RBC (0-5) /hpf Urine WBC (0-5) /hpf Urine WBC Clumps (None) /hpf Urine Bacteria (None) /hpf Hyaline Casts (0-2) /lpf Urine Mucus (None) /hpf Microbiology - Last 24 Hours (Table) 11/05/16 13:17 Urine Culture - Preliminary Urine,Catheterized Assessment and Plan Plan: Impression: #1 Acute sepsis with septic shock requiring pressor support secondary to cellulitis and history of enterococcal cloacae in the urine. #2 Acute blood loss with anemia secondary to GI bleed. Status post 2 units of packed red blood cells. Plans for EGD today. #3 Chronic atrial fibrillation with rapid ventricular response currently on a amiodarone drip. #4 Coagulopathy secondary to warfarin toxicity. Initial INR 8.2. Status post 2 units of fresh frozen plasma. Vitamin K. Kcentra. Corrected to 1.2. #5 Hypotension secondary to septic shock requiring both norepinephrine and vasopressin. #6 Acute on chronic renal failure with a recent history of acute kidney injury requiring dialysis at [facility]. #7 Recent history of MDR O with Enterobacter cloacae in the urine. #8 History of hypertension. #9 Chronic lower extremity edema. #10 History of anxiety. Plan: The patient was seen and evaluated by Dr. Rojas. The plan is for EGD today at 11. We will attempt to wean off the vasopressin and continued to titrate the norepinephrine to maintain a mean arterial pressure greater than 65. Infectious disease and cardiology are on the case as well. We'll continue to monitor him closely here in the intensive care unit. We'll continue to follow make further recommendations based on his clinical status.
--- NOTE | 2016-11-06 11:36 | PN ---
Demetri is a 51-year-old gentleman, with moderate obesity, chronic A. fib, admitted to hospital with hypotension, GI bleed and atrial fibrillation with rapid ventricular rate. He continues to be on pressors to keep up his blood pressure, remains in A. fib with better-controlled ventricular rate and amiodarone. His BUN is 50, creatinine is 2.4, INR has come down to 1.2. One exam, heart rate is 100 to 120 beats per minute, blood pressure is 130/60, respiratory rate is 18. Chest exam reveals diminished air entry at the bases. Heart exam reveals first and second heart sounds, irregular rhythm. Abdomen is soft. Exam of the extremities reveals chronic stasis changes and 1+ edema. ASSESSMENT: 1. Hypotension. 2. Gastrointestinal bleed. 3. Atrial fibrillation with poorly controlled ventricular rate. PLAN: Patient will continue the amiodarone that he is on. Continue the pressors. He is not a candidate for anticoagulation at this time. This needs to be addressed further as outpatient when he goes home.
[2016-11-06] MEDS ORDERED: KETAMINE 10 MG/ML 20 ML VIAL ONE (12:00)
[2016-11-06] MEDS ORDERED: MIDAZOLAM 2 MG/2 ML VIAL ONE (12:00)
[2016-11-06] MEDS ORDERED: ETOMIDATE 2 MG/ML 10 ML VIAL ONE (12:00)
[2016-11-06] MEDS ORDERED: IV FLUID CONTINUATION 1,000 ML IV ONE (12:10)
--- NOTE | 2016-11-06 12:21 | P.PCN ---
Date of Procedure: 11/06/16 Procedure(s) Performed: BRIEF HISTORY: Patient is a 51-year-old, pleasant, white male, morbidly obese was admitted hospital with acute GI bleed. He had an episode of coffee-ground emesis and multiple episodes of maroon colored stool and was hypotensive and has received 2 units of PRBC transfusion. Last colonoscopy was 7.5 g/dL. He had his Coumadin coagulopathy and INR was 8.2 which was reversed with vitamin K and fresh frozen plasma. This morning INR is 1.2. His and scheduled for an upper endoscopy to evaluate the recent source of GI bleed. PROCEDURE PERFORMED: Esophagogastroduodenoscopy with biopsy. PREOPERATIVE DIAGNOSIS: Acute GI bleed. IV sedation per anesthesia. PROCEDURE: After informed consent was obtained, the patient was brought into the endoscopy unit. IV conscious sedation was administered by Anesthesia under continuous monitoring. Initially the Olympus GIF-140 video endoscope was inserted into the mouth. Esophagus intubated without any difficulty. It was gradually advanced into the stomach and duodenum and carefully examined. In the bulb of the duodenum there was a 5 mm and 2 cm clean-based ulcers with no active bleeding and the second part of the duodenum appeared normal. The scope at this time was withdrawn to the stomach, adequately insufflated with air, and upon careful examination, mucosa of the antrum, had mild gastritis and also there were 2 ulcerations measuring 2 cm and 1 cm with no active bleeding. The ulcers had a clean base. Biopsies were done from the antrum to rule out H. pylori infection. The body, cardia and the fundus appeared normal. The scope was then withdrawn into the esophagus. The GE junction was located at 39 cm from the incisors. The esophagus appeared normal. There were no erosions or ulcerations seen and the patient tolerated the procedure well. IMPRESSION: 1. 5 mm and 2 cm clean based duodenal bulbar ulcers with no active bleeding. 2. 1 cm and 2 cm antral ulcers with a clean base and no active bleeding. RECOMMENDATIONS: The findings of this examination were discussed with the patient as well as his family. At this time will await the biopsy results. He' ll be started on clear liquid diet and advance as tolerated. I would recommend to hold the Coumadin for a week if possible. He will be continued on Protonix 40 mg IV piggyback twice daily. CBC will be monitored closely.
--- NOTE | 2016-11-06 12:57 | ECHOF ---
Referral Reason:afib MEASUREMENTS -------- HEIGHT: 190.5 cm WEIGHT: 289.9 kg BP: 99/45 RVIDd: 4.4 cm (< 3.3) IVSd: 1.7 cm (0.6 - 1.1) LVIDd: 4.1 cm (3.9 - 5.3) LVPWd: 1.6 cm (0.6 - 1.1) IVSs: 2.2 cm LVIDs: 3.3 cm LVPWs: 2.0 cm Ao Diam: 3.3 cm (2.0 - 3.7) RAP: 5.00 mmHg RVSP: 68.23 mmHg FINDINGS -------- Atrial fibrillation. This was a technically difficult study with suboptimal views. The left ventricular size is normal. There is moderate concentric left ventricular hypertrophy. Overall left ventricular systolic function is mild-moderately impaired with, an EF between 40 - 45 %. The right ventricle is severely enlarged. The left atrium was not well visualized. The right atrium was not well visualized. 1.5mg of Definity was utilized for enhancement of images The aortic valve was not well visualized. The mitral valve was not well visualized. Mild tricuspid regurgitation present. There is severe pulmonary hypertension. The right ventricular systolic pressure, as measured by Doppler, is 68.23mmHg. The pulmonic valve was not well visualized. The aortic root size is normal. There is no pericardial effusion. CONCLUSIONS -------- 1. Atrial fibrillation. 2. The aortic valve was not well visualized. 3. The mitral valve was not well visualized. 4. Mild tricuspid regurgitation present. 5. There is severe pulmonary hypertension. 6. The right ventricular systolic pressure, as measured by Doppler, is 68.23mmHg. 7. The pulmonic valve was not well visualized. 8. The aortic root size is normal. 9. There is no pericardial effusion. 10. This was a technically difficult study with suboptimal views. 11. The left ventricular size is normal. 12. There is moderate concentric left ventricular hypertrophy. 13. Overall left ventricular systolic function is mild-moderately impaired with, an EF between 40 - 45 %. 14. The right ventricle is severely enlarged. 15. The left atrium was not well visualized. 16. The right atrium was not well visualized. 17. 1.5mg of Definity was utilized for enhancement of images RADAR TESTER: Angelina Betancourt RDCS
[2016-11-06] MEDS: HYDROcodone/APAP 10-325MG 1 EACH TAB PO PRN ×2 (14:02→21:05)
--- NOTE | 2016-11-06 16:13 | PN ---
Patient is seen for followup for acute kidney injury. He is currently in the ICU undergoing endoscopy. He had been hypotensive and was maintained on Levophed and vasopressin. Vasopressin is now discontinued and Levophed is at about 14 mcg. Patient has had urine output. He has been at about 75 mL per hour. He is maintained on IV fluids at 100 mL per hour. He is awake, comfortable, not in any acute distress. He is also in atrial fibrillation with RVR. Labs are reviewed which show sodium 138, potassium 5.3, BUN 50, serum creatinine 2.4. Hemoglobin 11.2 g/dL. ASSESSMENT: 1. Acute kidney injury, acute tubular necrosis, currently non-oliguric. Etiology is hypotension, hypoperfusion. 2. Mild hyperkalemia. Currently patient has good urine output. Will continue to monitor for now. 3. Gastrointestinal bleed, currently undergoing endoscopy. 4. Morbid obesity. PLAN: Continue IV fluid. Try to wean down pressors. Will follow up on results of the endoscopy.
[2016-11-06] MEDS ORDERED: Magnesium Replacement Protocol 1 EACH MISC MISCELLANE PRN (17:14)
--- NOTE | 2016-11-06 17:30 | P.PN ---
Subjective 51-year-old gentleman that is morbidly obese over 600 pounds comes in to the hospital with complains of bloody bowel movements over the last 2 days. Patient has had a history of a recent complicated's severe sepsis at [facility] due to cellulitis of his lower extremity. Patient is currently maintained on Coumadin for his history of atrial fibrillation. Patient apparently also had Coumadin coagulopathy on the prior admission to [facility]. Maintained on CRRT due to an acute kidney injury and kidney function apparently improved prior to discharge. In the ER patient was noted to be in atrial fibrillation with rapid ventricular rate. Patient was also noted to have low blood pressure. Patient was started on vasopressor support with vasopressin and he will fed. Patient was also noted to have a Coumadin quadrant adenopathy with INR greater than 8 and bleeding per rectum. Patient is admitted to [facility]. There is some difficulty with placement of his Mcknight catheter. A 16-Persian catheter was inserted by urology. During the time of examination patient is currently on 0.3 of vasopressin and 20 of Levothroid Patient continues to be tachycardic. t patient denies having any current chest pain, difficulty breathing, abdominal pain. 2016 S/p EGD was noted to have multiple ulcers Continued on vasopressor support. Denies additional complaints. Objective - Vital Signs Vital signs: Vital Signs Temp 98.7 F 11/06/16 16:00 Pulse 133 H 11/06/16 17:00 Resp 16 11/06/16 17:00 BP 81/48 11/06/16 16:00 Pulse Ox 100 11/06/16 17:00 Intake & Output 11/05/16 11/06/16 11/06/16 18:59 06:59 18:59 Intake Total 6002.306 2966.983 1823.985 Output Total 330 450 770 Balance 5672.306 2516.983 1053.985 Weight 289.85 kg 289.85 kg Intake: IV 1190 1650 1370 Sodium Chloride 0.9% 1, 1190 1650 1370 000 ml @ 150 mls/hr IV . Q6H40M [facility] Rx#:[id number] Intake, IV Titration 2622.306 836.983 453.985 Amount Amiodarone 450 mg In 208.331 228.983 81.985 Dextrose 5% in Water 250 ml @ 1 MG/MIN 34.53 mls/ hr IV .Q7H31M [facility] Rx#: [id number] Empty Bag 1 bag @ 8.4 mls 175 /min IV .Q21M [facility] with Human Prothrombin Complx 5,400 unit Rx#:[id number] Meropenem 1 gm In Sodium 100 Chloride 0.9% 100 ml @ 100 mls/hr IVPB Q12HR [facility] Rx#:[id number] Meropenem 1 gm In Sodium 100 Chloride 0.9% 100 ml @ 100 mls/hr IVPB Q8HR [facility] Rx#:[id number] Norepinephrine 4 mg In 688.975 508.000 254.000 Sodium Chloride 0.9% 250 ml @ Titrate IV .Q0M [facility] Rx#:[id number] Piperacillin-Tazobactam 3 50.0 .375 gm In Dextrose/Water 1 50ml.bag @ 12.5 mls/hr IVPB Q8HR [facility] Rx#: [id number] Sodium Chloride 0.9% 1, 999 000 ml @ 999 mls/hr IV . Q1H1M [facility] Rx#:[id number] Sodium Chloride 0.9% 99 18 ml @ 0.03 UNITS/MIN 9 mls /hr IV .Q11H7M [facility] with Vasopressin 20 unit Rx#: [id number] Vancomycin 2,500 mg In 501 Sodium Chloride 0.9% 500 ml @ 167 mls/hr IVPB Q24HR@1200 [facility] Rx#: [id number] Oral 480 Blood Product 2190 Ffp 24 Cpd Unit 287 [id number] Ffp 24 Cpd Unit 343 [id number] Rc Pheresis As-3 Unit 310 [id number] Rc Pheresis As3 Unit 310 [id number] Output: Urine 330 450 770 Other: Voiding Method Indwelling Catheter Indwelling Catheter Indwelling Catheter ABP, PAP, CO, CI - Last Documented Arterial Blood Pressure 88/52 - Constitutional General appearance: Present: morbidly obese - EENT Eyes: Present: PERRLA - Respiratory Respiratory: bilateral: CTA (poor exam due to body habitus.) - Cardiovascular Rhythm: irregularly irregular - Gastrointestinal General gastrointestinal: Present: soft. Absent: organomegaly, tenderness - Integumentary Integumentary: Present: cellulitis - Psychiatric Psychiatric: Present: A&O x's 3, appropriate affect - Labs CBC & Chem 7: 11/06/16 04:40 11/06/16 04:40 Labs: Abnormal Lab Results - Last 24 Hours (Table) 11/05/16 11/06/16 11/06/16 Range/Units 19:20 00:30 04:40 RBC 3.91 L 3.76 L 3.83 L (4.30-5.90) m/uL Hgb 11.3 L 11.1 L 11.2 L (13.0-17.5) gm/dL Hct 38.3 L 36.9 L 37.8 L (39.0-53.0) % MCHC 29.5 L 30.1 L 29.7 L (31.0-37.0) g/dL RDW 18.2 H 17.9 H 18.0 H (11.5-15.5) % Neutrophils # 8.3 H (1.3-7.7) k/uL Lymphocytes # 0.9 L 0.8 L 0.8 L (1.0-4.8) k/uL PT (9.0-12.0) sec Potassium (3.5-5.1) mmol/L Chloride (98-107) mmol/L Carbon Dioxide (22-30) mmol/L BUN (9-20) mg/dL Creatinine (0.66-1.25) mg/dL Glucose (74-99) mg/dL Calcium (8.4-10.2) mg/dL 11/06/16 11/06/16 Range/Units 04:40 04:40 RBC (4.30-5.90) m/uL Hgb (13.0-17.5) gm/dL Hct (39.0-53.0) % MCHC (31.0-37.0) g/dL RDW (11.5-15.5) % Neutrophils # (1.3-7.7) k/uL Lymphocytes # (1.0-4.8) k/uL PT 12.2 H (9.0-12.0) sec Potassium 5.3 H (3.5-5.1) mmol/L Chloride 108 H (98-107) mmol/L Carbon Dioxide 21 L (22-30) mmol/L BUN 50 H (9-20) mg/dL Creatinine 2.40 H (0.66-1.25) mg/dL Glucose 138 H (74-99) mg/dL Calcium 8.1 L (8.4-10.2) mg/dL Microbiology - Last 24 Hours (Table) 11/05/16 13:17 Urine Culture - Preliminary Urine,Catheterized Assessment and Plan Plan: #1 shock likely suspect is secondary to severe sepsis due to cellulitis. #2 morbid obesity #3 Coumadin coagulopathy #4 acute blood loss anemia secondary to GI bleed #5 chronic atrial fibrillation with rapid ventricular rate #6 acute on chronic kidney disease. #7 history of hypertension #8 umbilical hernia Plan Vasopressor support Hold anticoagulation Repeat HB ABx per ID D/c FMS Pulmonary , nephro , ID recs appreciated Podiatry consult.
[2016-11-06] MEDS ORDERED: diphenhydrAMINE 50 MG CAP PO PRN (18:36)
--- NOTE | 2016-11-06 18:36 | P.PN ---
Subjective Principal diagnosis: Gastrointestinal bleed, hypotension 51-year-old male who has a history of superobesity. Was seen in the wound healing Center in the past due to his significant skin condition to his legs and onto his flanks. He has a history of superobesity with a weight greater than 600 pounds. This was from his chronic edema and lack of care. He is now receiving much improved care in his skin is in much better shape. He now presents to the emergency center with concerns to gastrointestinal bleed with bright red blood per rectum. The patient has a very significant recent history or he was in the emergency center he was found evidence of sepsis as well as atrial fibrillation and acute renal failure. He was transported to [facility] for care. He underwent continuous renal replacement therapy and had recovery of his acute renal failure. He was home doing relatively well until the sudden onset of the gastrointestinal bleed. Is noted have evidence of significant Coumadin coagulopathy at this time. The patient was having difficulty passing urine and urology was consulted and they were able to pass a Mcknight catheter with multiple assistance allowing visualization of the genital. Patient's urinalysis is markedly abnormal and there is concerns to sepsis. Outside data is obtained and on October 03 urinalysis and culture were obtained. UA was also markedly abnormal and urine culture has evidence of a multidrug resistant Enterobacter cloacae. Patient underwent EGD today. Multiple healing ulcerations were noted. No active bleeding was noted. Nursing staff relates that the melanotic stools improving. Urine output has been adequate. Objective - Vital Signs Vital signs: Vital Signs Temp 98.7 F 11/06/16 16:00 Pulse 133 H 11/06/16 17:00 Resp 16 11/06/16 17:00 BP 81/48 11/06/16 16:00 Pulse Ox 100 11/06/16 17:00 Intake & Output 11/05/16 11/06/16 11/06/16 18:59 06:59 18:59 Intake Total 6002.306 2966.983 1823.985 Output Total 330 450 770 Balance 5672.306 2516.983 1053.985 Weight 289.85 kg 289.85 kg Intake: IV 1190 1650 1370 Sodium Chloride 0.9% 1, 1190 1650 1370 000 ml @ 150 mls/hr IV . Q6H40M [facility] Rx#:[id number] Intake, IV Titration 2622.306 836.983 453.985 Amount Amiodarone 450 mg In 208.331 228.983 81.985 Dextrose 5% in Water 250 ml @ 1 MG/MIN 34.53 mls/ hr IV .Q7H31M [facility] Rx#: [id number] Empty Bag 1 bag @ 8.4 mls 175 /min IV .Q21M [facility] with Human Prothrombin Complx 5,400 unit Rx#:[id number] Meropenem 1 gm In Sodium 100 Chloride 0.9% 100 ml @ 100 mls/hr IVPB Q12HR [facility] Rx#:[id number] Meropenem 1 gm In Sodium 100 Chloride 0.9% 100 ml @ 100 mls/hr IVPB Q8HR [facility] Rx#:[id number] Norepinephrine 4 mg In 688.975 508.000 254.000 Sodium Chloride 0.9% 250 ml @ Titrate IV .Q0M [facility] Rx#:[id number] Piperacillin-Tazobactam 3 50.0 .375 gm In Dextrose/Water 1 50ml.bag @ 12.5 mls/hr IVPB Q8HR [facility] Rx#: [id number] Sodium Chloride 0.9% 1, 999 000 ml @ 999 mls/hr IV . Q1H1M [facility] Rx#:[id number] Sodium Chloride 0.9% 99 18 ml @ 0.03 UNITS/MIN 9 mls /hr IV .Q11H7M [facility] with Vasopressin 20 unit Rx#: [id number] Vancomycin 2,500 mg In 501 Sodium Chloride 0.9% 500 ml @ 167 mls/hr IVPB Q24HR@1200 [facility] Rx#: [id number] Oral 480 Blood Product 2190 Ffp 24 Cpd Unit 287 [id number] Ffp 24 Cpd Unit 343 [id number] Rc Pheresis As-3 Unit 310 [id number] Rc Pheresis As3 Unit 310 [id number] Output: Urine 330 450 770 Other: Voiding Method Indwelling Catheter Indwelling Catheter Indwelling Catheter ABP, PAP, CO, CI - Last Documented Arterial Blood Pressure 88/52 - Exam 51-year-old male with superobesity seems comfortable HEENT: Anicteric conjunctiva are pink and moist nasal mucosa grossly intact without significant lesions, there is no thrush. Poor dentition Neck: The neck is supple without significant lymphadenopathy or thyromegaly. Lungs: Symmetrical air entry. Few basilar crackles. No severe wheezing. No dullness or egophony Heart: Irregular irregular. Audible S1-S2. 2/6 systolic murmur left sternal border. No heave or thrill. Abdomen: Obese with positive bowel sounds. Organs cannot be palpated through the immense abdominal wall Extremities: The upper extremities have excellent pulses they are symmetric, no significant petechiae or telangiectasia. No splinter hemorrhages were noted. The lower extremities show evidence of the significant edema with his fluid resuscitation. He with that he's developed some weeping from the significant edema. It is fortunately not very tender. No large open areas of ulceration are seen. He does have some chronic skin changes that are old with a thickened dyshidrotic skin. Neuro: Awake alert oriented to person place and time. There are no acute new gross focal sensory motor deficits. - Labs CBC & Chem 7: 11/06/16 04:40 11/06/16 04:40 Labs: Abnormal Lab Results - Last 24 Hours (Table) 11/05/16 11/06/16 11/06/16 Range/Units 19:20 00:30 04:40 RBC 3.91 L 3.76 L 3.83 L (4.30-5.90) m/uL Hgb 11.3 L 11.1 L 11.2 L (13.0-17.5) gm/dL Hct 38.3 L 36.9 L 37.8 L (39.0-53.0) % MCHC 29.5 L 30.1 L 29.7 L (31.0-37.0) g/dL RDW 18.2 H 17.9 H 18.0 H (11.5-15.5) % Neutrophils # 8.3 H (1.3-7.7) k/uL Lymphocytes # 0.9 L 0.8 L 0.8 L (1.0-4.8) k/uL PT (9.0-12.0) sec Potassium (3.5-5.1) mmol/L Chloride (98-107) mmol/L Carbon Dioxide (22-30) mmol/L BUN (9-20) mg/dL Creatinine (0.66-1.25) mg/dL Glucose (74-99) mg/dL Calcium (8.4-10.2) mg/dL 11/06/16 11/06/16 Range/Units 04:40 04:40 RBC (4.30-5.90) m/uL Hgb (13.0-17.5) gm/dL Hct (39.0-53.0) % MCHC (31.0-37.0) g/dL RDW (11.5-15.5) % Neutrophils # (1.3-7.7) k/uL Lymphocytes # (1.0-4.8) k/uL PT 12.2 H (9.0-12.0) sec Potassium 5.3 H (3.5-5.1) mmol/L Chloride 108 H (98-107) mmol/L Carbon Dioxide 21 L (22-30) mmol/L BUN 50 H (9-20) mg/dL Creatinine 2.40 H (0.66-1.25) mg/dL Glucose 138 H (74-99) mg/dL Calcium 8.1 L (8.4-10.2) mg/dL Microbiology - Last 24 Hours (Table) 11/05/16 16:00 Blood Culture - Preliminary Blood No Growth after 24 hours 11/05/16 13:17 Urine Culture - Preliminary Urine,Catheterized Laboratory Results WBC 10.2 k/uL (3.8-10.6) 11/06/16 04:40 RBC 3.83 m/uL (4.30-5.90) L 11/06/16 04:40 Hgb 11.2 gm/dL (13.0-17.5) L 11/06/16 04:40 Hct 37.8 % (39.0-53.0) L 11/06/16 04:40 MCV 98.6 fL (80.0-100.0) 11/06/16 04:40 MCH 29.2 pg (25.0-35.0) 11/06/16 04:40 MCHC 29.7 g/dL (31.0-37.0) L 11/06/16 04:40 RDW 18.0 % (11.5-15.5) H 11/06/16 04:40 Plt Count 355 k/uL (150-450) 11/06/16 04:40 Neutrophils % 82 % 11/06/16 04:40 Lymphocytes % 8 % 11/06/16 04:40 Monocytes % 4 % 11/06/16 04:40 Eosinophils % 4 % 11/06/16 04:40 Basophils % 0 % 11/06/16 04:40 Neutrophils # 8.3 k/uL (1.3-7.7) H 11/06/16 04:40 Lymphocytes # 0.8 k/uL (1.0-4.8) L 11/06/16 04:40 Monocytes # 0.4 k/uL (0-1.0) 11/06/16 04:40 Eosinophils # 0.4 k/uL (0-0.7) 11/06/16 04:40 Basophils # 0.0 k/uL (0-0.2) 11/06/16 04:40 Hypochromasia Marked 11/06/16 04:40 Poikilocytosis Slight 11/06/16 04:40 Anisocytosis Slight 11/06/16 04:40 Macrocytosis Slight 11/06/16 04:40 PT 12.2 sec (9.0-12.0) H 11/06/16 04:40 INR 1.2 (<1.1) 11/06/16 04:40 APTT 22.6 sec (22.0-30.0) 11/06/16 04:40 Sample Site lrad 11/05/16 08:39 ABG pH 7.34 (7.35-7.45) L 11/05/16 08:39 ABG pCO2 38 mmHg (35-45) 11/05/16 08:39 ABG pO2 75 mmHg (83-108) L 11/05/16 08:39 ABG HCO3 20 mmol/L (21-25) L 11/05/16 08:39 ABG Total CO2 21 mmol/L (19-24) 11/05/16 08:39 ABG O2 Saturation 94.0 % (94-97) 11/05/16 08:39 ABG Base Excess -4.9 mmol/L 11/05/16 08:39 FiO2 21 % 11/05/16 08:39 Sodium 138 mmol/L (137-145) 11/06/16 04:40 Potassium 5.3 mmol/L (3.5-5.1) H 11/06/16 04:40 Chloride 108 mmol/L (98-107) H 11/06/16 04:40 Carbon Dioxide 21 mmol/L (22-30) L 11/06/16 04:40 Anion Gap 9 mmol/L 11/06/16 04:40 BUN 50 mg/dL (9-20) H 11/06/16 04:40 Creatinine 2.40 mg/dL (0.66-1.25) H 11/06/16 04:40 Est GFR (MDRD) Af Amer 34 (>60 ml/min/1.73 sqM) 11/06/16 04:40 Est GFR (MDRD) Non-Af 28 (>60 ml/min/1.73 sqM) 11/06/16 04:40 Glucose 138 mg/dL (74-99) H 11/06/16 04:40 POC Glucose (mg/dL) 136 mg/dL (75-99) H 11/05/16 06:05 POC Glu Drycleaner ID Katharina Colon 11/05/16 06:05 Calcium 8.1 mg/dL (8.4-10.2) L 11/06/16 04:40 Phosphorus 4.4 mg/dL (2.5-4.5) 11/06/16 04:40 Magnesium 1.7 mg/dL (1.6-2.3) 11/06/16 04:40 Total Bilirubin 0.9 mg/dL (0.2-1.3) 11/05/16 03:30 AST 13 U/L (17-59) L 11/05/16 03:30 ALT 21 U/L (21-72) 11/05/16 03:30 Alkaline Phosphatase 88 U/L (38-126) 11/05/16 03:30 Total Creatine Kinase 25 U/L (55-170) L 11/05/16 03:30 CK-MB (CK-2) 0.4 ng/mL (0.0-2.4) 11/05/16 03:30 CK-MB (CK-2) Rel Index 1.6 11/05/16 03:30 Troponin I <0.012 ng/mL (0.000-0.034) 11/05/16 03:30 Total Protein 5.7 g/dL (6.3-8.2) L 11/05/16 03:30 Albumin 2.3 g/dL (3.5-5.0) L 11/05/16 03:30 Lipase 47 U/L (23-300) 11/05/16 03:30 Urine Color Yellow 11/05/16 13:17 Urine Appearance Turbid (Clear) 11/05/16 13:17 Urine pH 5.0 (5.0-8.0) 11/05/16 13:17 Ur Specific [place] 1.016 (1.001-1.035) 11/05/16 13:17 Urine Protein 1+ (Negative) H 11/05/16 13:17 Urine Glucose (UA) Negative (Negative) 11/05/16 13:17 Urine Ketones Trace (Negative) H 11/05/16 13:17 Urine Blood Moderate (Negative) H 11/05/16 13:17 Urine Nitrate Negative (Negative) 11/05/16 13:17 Urine Bilirubin Negative (Negative) 11/05/16 13:17 Urine Urobilinogen 2.0 mg/dL (<2.0) 11/05/16 13:17 Ur Leukocyte Esterase Large (Negative) H 11/05/16 13:17 Urine RBC 77 /hpf (0-5) H 11/05/16 13:17 Urine WBC >182 /hpf (0-5) H 11/05/16 13:17 Urine WBC Clumps Many /hpf (None) H 11/05/16 13:17 Ur Squamous Epith Cells 1 /hpf (0-4) 11/05/16 13:17 Urine Bacteria Rare /hpf (None) H 11/05/16 13:17 Hyaline Casts 14 /lpf (0-2) H 11/05/16 13:17 Urine Mucus Occasional /hpf (None) H 11/05/16 13:17 Blood Type O Positive 11/05/16 03:30 Blood Type Recheck No 11/05/16 03:30 Antibody Screen NEGATIVE 11/05/16 03:30 Crossmatch See Detail 11/05/16 03:30 Transfuse Plasma 11/05/16 11/05/16 03:30 Spec Expiration Date 11/08/2016 - 6750 11/05/16 03:30 Microbiology 11/05/16 16:00 Blood Blood Culture - Preliminary No Growth after 24 hours 11/05/16 13:17 Urine,Catheterized Urine Culture - Preliminary Assessment and Plan (1) Septic shock Narrative/Plan: 51-year-old male who suffers from obesity presents to hospital with evidence of a 48 hour history of increasing amounts of melena or hematochezia. He was not having much abdominal pain. Both his recent history of hospitalization at the tertiary care center with acute renal failure he was brought into the emergency center. There is evidence of an elevated creatinine but improved from that from his last year visit when he was in acute renal failure. He does have evidence of the significant gastrointestinal bleeding and is being seen by surgery and gastroenterology. His Coumadin coagulopathy is improved with his INR going from 8.2-1.2 with this time. Plans for endoscopic evaluation if possible. The patient was seen in the outpatient setting and on November 03 had a urinalysis and culture performed. UA was markedly abnormal and urine culture shows evidence of a multidrug resistant Enterobacter cloacae. Consequently for antibiotic therapy carbapenem with meropenem is started with the dose that is hopefully acceptable for his current BMI. Some further culture data is becoming available and likely will have pseudomonas as well as Proteus in the urine corrected from a prior Enterobacter. Awaiting final clarification will not alter antibiotics until there is further improvement. Patient seems to have a mild rash Benadryl as added. His atrial fibrillation has improved as his sepsis has been treated. Nephrology has evaluated without plans for renal replacement therapy at this time. Mcknight catheter is in place and urine output is being monitored closely Status: Acute (2) Gram negative sepsis Status: Acute (3) Enterobacter sepsis Status: Acute (4) Gastrointestinal hemorrhage Status: Acute
[2016-11-06] MEDS: MAGNESIUM SULFATE-D5W PMX 1 GM in DEXTROSE/WATER 1 100ML.BAG IVPB SCH ×2 (18:37→20:30)
[2016-11-06] MEDS: AMIODARONE 200 MG TAB PO SCH (20:50)
[2016-11-06 23:00] LABS: Anisocytosis Slight; Basophils % (A) 0 %; CH 28.5; CHCM 28.4; Eosinophils # (A) 0.6 k/uL (0-0.7); Eosinophils % (A) 6 %; HCT 37.4 % (39.0-53.0); HDW 3.44; Hypochromasia Marked; Luc # (Auto) 0.18; Luc % (Auto) 2; Lymphocytes # (A) 0.7 k/uL (1.0-4.8); Lymphocytes % (A) 7 %; MCH 29.7 pg (25.0-35.0); MCHC 29.3 g/dL (31.0-37.0); MCV 101.1 fL (80.0-100.0); Macrocytosis Moderate; Mean Platelet Volume 7.5; Monocytes # (A) 0.4 k/uL (0-1.0); Monocytes % (A) 4 %; Neutrophils % (A) 80 %; Poikilocytosis Slight; RDW 18.2 % (11.5-15.5); WBC 9.9 k/uL (3.8-10.6); WBC (Perox) 10.28
[2016-11-07] MEDS: NOREPINEPHRINE 4 MG in SODIUM CHLORIDE 0.9% 250 ML IV SCH ×3 (03:55→23:30)
[2016-11-07] MEDS: SODIUM CHLORIDE 0.9% 1,000 ML IV SCH ×4 (04:56→23:50)
[2016-11-07 05:21] LABS: INR 1.3 (<1.1); Partial Thromboplastin Time 23.7 sec (22.0-30.0); Prothrombin Time 12.9 sec (9.0-12.0)
[2016-11-07 05:23] LABS: Anisocytosis Slight; Basophils # (A) 0.1 k/uL (0-0.2); Basophils % (A) 1 %; CH 28.3; CHCM 27.6; Eosinophils # (A) 0.5 k/uL (0-0.7); Eosinophils % (A) 5 %; HCT 38.1 % (39.0-53.0); HDW 3.34; Hypochromasia Marked; Luc # (Auto) 0.18; Luc % (Auto) 2; Lymphocytes # (A) 0.6 k/uL (1.0-4.8); Lymphocytes % (A) 7 %; MCH 29.8 pg (25.0-35.0); MCHC 28.9 g/dL (31.0-37.0); MCV 103.1 fL (80.0-100.0); Macrocytosis Moderate; Mean Platelet Volume 7.7; Monocytes # (A) 0.4 k/uL (0-1.0); Monocytes % (A) 4 %; Neutrophils # (A) 7.8 k/uL (1.3-7.7); Neutrophils % (A) 82 %; WBC 9.5 k/uL (3.8-10.6); WBC (Perox) 9.82
[2016-11-07 05:24] LABS: Calcium 8.1 mg/dL (8.4-10.2); Magnesium 2.1 mg/dL (1.6-2.3); Phosphorous 4.6 mg/dL (2.5-4.5); Potassium 5.6 mmol/L (3.5-5.1)
[2016-11-07] MEDS: IPRATROPIUM-ALBUTEROL 3 ML NEB INHALATION SCH (08:07)
[2016-11-07] MEDS ORDERED: HYDROCORTISONE SUCCINATE 100 MG/2 ML VIAL IV STA (08:46)
[2016-11-07] MEDS: AMIODARONE 200 MG TAB PO SCH ×2 (09:03→20:47)
[2016-11-07] MEDS: PANTOPRAZOLE 40 MG/10 ML VIAL IV SCH ×2 (09:04→20:47)
[2016-11-07] MEDS: TRIAMCINOLONE 0.1% CREAM 80 GM TUBE TOPICAL SCH ×2 (09:05→20:47)
[2016-11-07] MEDS: HYDROcodone/APAP 10-325MG 1 EACH TAB PO PRN ×3 (09:17→22:04)
[2016-11-07] MEDS: MEROPENEM 1 GM in SODIUM CHLORIDE 0.9% 100 ML IVPB SCH (09:18)
--- NOTE | 2016-11-07 09:24 | P.PN ---
Subjective Progress note dated 11/07/2016 This is a 51-year-old male who was admitted on 11/05/2016. The patient was seen yesterday by my nurse practitioner myself. He remains in the ICU. He is awake and alert. I was called last night by the nurse because of low blood pressures. I believe they were treating a number not the patient. He never was tachycardic. He was awake and alert. He was lucid. He had good urine output. Anyway currently the patient's getting O2 at 2 L. His levophed is down to 6 mics per minute. Getting appointment 9 IV at 150 an hour. The patient's random cortisol level was low at 7. We'll attempt to see whether or not hydrocortisone makes a difference in his blood pressure. Other 90s doing reasonably well. Objective - Vital Signs Vital signs: Vital Signs Temp 98.2 F 11/07/16 04:00 Pulse 126 H 11/07/16 07:00 Resp 16 11/07/16 07:00 BP 106/69 11/07/16 07:00 Pulse Ox 99 11/07/16 08:07 Intake & Output 11/06/16 11/07/16 11/07/16 18:59 06:59 18:59 Intake Total 2223.985 3666.369 165.24 Output Total 945 816 60 Balance 3924.640 3920.369 105.24 Weight 289.85 kg 289.85 kg Intake: IV 1670 2900 150 0.9ns bolus 1000 Meropenem 1 gm In Sodium 100 Chloride 0.9% 100 ml @ 100 mls/hr IVPB Q12HR [facility] Rx#:[id number] Sodium Chloride 0.9% 1, 1670 1800 150 000 ml @ 150 mls/hr IV . Q6H40M [facility] Rx#:[id number] Intake, IV Titration 553.985 766.369 15.24 Amount Amiodarone 450 mg In 81.985 Dextrose 5% in Water 250 ml @ 1 MG/MIN 34.53 mls/ hr IV .Q7H31M [facility] Rx#: [id number] Magnesium Sulfate-D5w Pmx 100 100 1 gm In Dextrose/Water 1 100ml.bag @ 100 mls/hr IVPB Q1H [facility] Rx#: [id number] Meropenem 1 gm In Sodium 100 Chloride 0.9% 100 ml @ 100 mls/hr IVPB Q12HR [facility] Rx#:[id number] Norepinephrine 4 mg In 254.000 666.369 15.24 Sodium Chloride 0.9% 250 ml @ Titrate IV .Q0M [facility] Rx#:[id number] Sodium Chloride 0.9% 99 18 ml @ 0.03 UNITS/MIN 9 mls /hr IV .Q11H7M [facility] with Vasopressin 20 unit Rx#: [id number] Output: Urine 945 815 60 Stool 1 Other: Voiding Method Indwelling Catheter Indwelling Catheter ABP, PAP, CO, CI - Last Documented Arterial Blood Pressure 127/65 - Exam No acute distress, oriented 3. HEENT examinations unremarkable. Nasal O2 in place. Mucous membranes are moist. Neck supple. Full range of motion. No adenopathy. Cardiovascular examination reveals distant heart sounds. S1-S2 normal. No S3- S4. No murmur. Lungs are relatively clear breath sounds are equal. Abdomen is obese. Bowel sounds are heard. Extremities reveal evidence of diffuse bilateral cellulitis with chronic venous stasis changes and significant edema. - Labs CBC & Chem 7: 11/07/16 04:47 11/07/16 04:47 Labs: Abnormal Lab Results - Last 24 Hours (Table) 11/06/16 11/07/16 11/07/16 Range/Units 22:45 04:47 04:47 RBC 3.70 L 3.70 L (4.30-5.90) m/uL Hgb 11.0 L 11.0 L (13.0-17.5) gm/dL Hct 37.4 L 38.1 L (39.0-53.0) % MCV 101.1 H 103.1 H (80.0-100.0) fL MCHC 29.3 L 28.9 L (31.0-37.0) g/dL RDW 18.2 H 18.0 H (11.5-15.5) % Neutrophils # 8.0 H 7.8 H (1.3-7.7) k/uL Lymphocytes # 0.7 L 0.6 L (1.0-4.8) k/uL PT 12.9 H (9.0-12.0) sec Potassium (3.5-5.1) mmol/L Chloride (98-107) mmol/L Carbon Dioxide (22-30) mmol/L BUN (9-20) mg/dL Creatinine (0.66-1.25) mg/dL Glucose (74-99) mg/dL Calcium (8.4-10.2) mg/dL Phosphorus (2.5-4.5) mg/dL 11/07/16 Range/Units 04:47 RBC (4.30-5.90) m/uL Hgb (13.0-17.5) gm/dL Hct (39.0-53.0) % MCV (80.0-100.0) fL MCHC (31.0-37.0) g/dL RDW (11.5-15.5) % Neutrophils # (1.3-7.7) k/uL Lymphocytes # (1.0-4.8) k/uL PT (9.0-12.0) sec Potassium 5.6 H (3.5-5.1) mmol/L Chloride 112 H (98-107) mmol/L Carbon Dioxide 19 L (22-30) mmol/L BUN 42 H (9-20) mg/dL Creatinine 1.90 H (0.66-1.25) mg/dL Glucose 134 H (74-99) mg/dL Calcium 8.1 L (8.4-10.2) mg/dL Phosphorus 4.6 H (2.5-4.5) mg/dL Microbiology - Last 24 Hours (Table) 11/05/16 13:17 Urine Culture - Preliminary Urine,Catheterized Gram Neg Bacilli 11/05/16 16:00 Blood Culture - Preliminary Blood No Growth after 24 hours Assessment and Plan (1) Anemia Status: Acute (2) Atrial fibrillation with RVR Status: Acute (3) Enterobacter sepsis Status: Acute (4) Gram negative sepsis Status: Acute (5) Obesity Status: Acute (6) Septic shock Status: Acute (7) Acute renal failure Status: Acute (8) Cellulitis Status: Acute Plan: Plan dated 11/07/2016 The patient's levophed will continue to be weaned down. Because his cortisol level was low we'll go ahead and try to see whether the hydrocortisone makes a difference for him. We'll give him 100 mg IV push. I will I'll review the medications labs and x-rays. Additional recommendations suggestions are forthcoming. Once we get him off the pressor, he can move out to the floor. Antibiotics have been adjusted accordingly. We'll continue to follow. Prognosis is guarded. Time with Patient: Less than 30
--- NOTE | 2016-11-07 09:28 | P.PN ---
Subjective Principal diagnosis: GI bleed 51-year-old gentleman history of atrial fibrillation admitted with acute upper GI bleed with coffee-ground emesis and maroon-colored bowel movements with Coumadin coagulopathy status post EGD with findings of multiple duodenal bulb antral ulcers without active bleeding. Tolerating regular diet. Denies abdominal pain. Hemoglobin 11.0. No recurrence of coffee-ground emesis and maroon-colored bowel movements last night. INR 1.3. Anticoagulation on hold. Gram-negative urine culture. Cortisol 7. IV pressors infusing. Objective - Vital Signs Vital signs: Vital Signs Temp 98.0 F 11/07/16 08:00 Pulse 114 H 11/07/16 09:00 Resp 18 11/07/16 09:00 BP 106/69 11/07/16 08:00 Pulse Ox 100 11/07/16 09:00 Intake & Output 11/06/16 11/07/16 11/07/16 18:59 06:59 18:59 Intake Total 2223.985 3666.369 565.24 Output Total 945 816 260 Balance 0369.255 0859.369 305.24 Weight 289.85 kg 289.79 kg Intake: IV 1670 2900 550 0.9ns bolus 1000 Meropenem 1 gm In Sodium 100 100 Chloride 0.9% 100 ml @ 100 mls/hr IVPB Q12HR [facility] Rx#:[id number] Sodium Chloride 0.9% 1, 1670 1800 450 000 ml @ 150 mls/hr IV . Q6H40M [facility] Rx#:[id number] Intake, IV Titration 553.985 766.369 15.24 Amount Amiodarone 450 mg In 81.985 Dextrose 5% in Water 250 ml @ 1 MG/MIN 34.53 mls/ hr IV .Q7H31M [facility] Rx#: [id number] Magnesium Sulfate-D5w Pmx 100 100 1 gm In Dextrose/Water 1 100ml.bag @ 100 mls/hr IVPB Q1H [facility] Rx#: [id number] Meropenem 1 gm In Sodium 100 Chloride 0.9% 100 ml @ 100 mls/hr IVPB Q12HR [facility] Rx#:[id number] Norepinephrine 4 mg In 254.000 666.369 15.24 Sodium Chloride 0.9% 250 ml @ Titrate IV .Q0M [facility] Rx#:[id number] Sodium Chloride 0.9% 99 18 ml @ 0.03 UNITS/MIN 9 mls /hr IV .Q11H7M [facility] with Vasopressin 20 unit Rx#: [id number] Output: Urine 945 815 260 Stool 1 Other: Voiding Method Indwelling Catheter Indwelling Catheter ABP, PAP, CO, CI - Last Documented Arterial Blood Pressure 103/49 - Exam General appearance: The patient is alert, oriented, in no acute distress. HET: Head is normocephalic and atraumatic. Pupils are equal and reactive. Oropharynx is clear without lesions. Neck: Supple without lymphadenopathy. Trachea midline. Heart: S1 S2. Irregular. Lungs: No crackles or wheezes are heard. Abdomen: Soft, nontender, nondistended with bowel sounds. No peritoneal signs. No palpable organomegaly or masses. Mcknight with clear elva urine. Extremities: Bilateral lower extremity edema. Chronic thickened skin changes. Neurological: No focal deficits. Strength and sensation are grossly intact. - Labs CBC & Chem 7: 11/07/16 04:47 11/07/16 04:47 Labs: Abnormal Lab Results - Last 24 Hours (Table) 11/06/16 11/07/16 11/07/16 Range/Units 22:45 04:47 04:47 RBC 3.70 L 3.70 L (4.30-5.90) m/uL Hgb 11.0 L 11.0 L (13.0-17.5) gm/dL Hct 37.4 L 38.1 L (39.0-53.0) % MCV 101.1 H 103.1 H (80.0-100.0) fL MCHC 29.3 L 28.9 L (31.0-37.0) g/dL RDW 18.2 H 18.0 H (11.5-15.5) % Neutrophils # 8.0 H 7.8 H (1.3-7.7) k/uL Lymphocytes # 0.7 L 0.6 L (1.0-4.8) k/uL PT 12.9 H (9.0-12.0) sec Potassium (3.5-5.1) mmol/L Chloride (98-107) mmol/L Carbon Dioxide (22-30) mmol/L BUN (9-20) mg/dL Creatinine (0.66-1.25) mg/dL Glucose (74-99) mg/dL Calcium (8.4-10.2) mg/dL Phosphorus (2.5-4.5) mg/dL 11/07/16 Range/Units 04:47 RBC (4.30-5.90) m/uL Hgb (13.0-17.5) gm/dL Hct (39.0-53.0) % MCV (80.0-100.0) fL MCHC (31.0-37.0) g/dL RDW (11.5-15.5) % Neutrophils # (1.3-7.7) k/uL Lymphocytes # (1.0-4.8) k/uL PT (9.0-12.0) sec Potassium 5.6 H (3.5-5.1) mmol/L Chloride 112 H (98-107) mmol/L Carbon Dioxide 19 L (22-30) mmol/L BUN 42 H (9-20) mg/dL Creatinine 1.90 H (0.66-1.25) mg/dL Glucose 134 H (74-99) mg/dL Calcium 8.1 L (8.4-10.2) mg/dL Phosphorus 4.6 H (2.5-4.5) mg/dL Microbiology - Last 24 Hours (Table) 11/05/16 13:17 Urine Culture - Preliminary Urine,Catheterized Gram Neg Bacilli 11/05/16 16:00 Blood Culture - Preliminary Blood No Growth after 24 hours Assessment and Plan Plan: 1. Acute upper GI bleed coffee-ground emesis and maroon-colored bowel movements secondary to multiple duodenal and antral ulcer status post EGD. 2. Acute blood loss anemia. 3. History of chronic atrial fibrillation with Coumadin coagulopathy on admission corrected. Anticoagulation on hold. 4. Morbid obesity BMI 79.9. 5. Gram-negative UTI. Recommendations: 1. Soft diet. 2. Monitoring of CBC. IV Protonix 40 mg twice daily. 3. Continue to hold anticoagulation. 4. Will continue to follow. Assessment and plan of care discussed with Dr. Ying.
--- NOTE | 2016-11-07 12:11 | P.PN ---
Subjective Principal diagnosis: Patient awake and alert continues to be in intensive care on vasopressor. Objective - Vital Signs Vital signs: Vital Signs Temp 98.0 F 11/07/16 08:00 Pulse 120 H 11/07/16 11:00 Resp 10 L 11/07/16 11:00 BP 106/69 11/07/16 08:00 Pulse Ox 100 11/07/16 11:00 Intake & Output 11/06/16 11/07/16 11/07/16 18:59 06:59 18:59 Intake Total 2223.985 3666.369 944.615 Output Total 945 816 385 Balance 9792.804 7232.369 559.615 Weight 289.85 kg 289.79 kg 289.79 kg Intake: IV 1670 2900 850 0.9ns bolus 1000 Meropenem 1 gm In Sodium 100 100 Chloride 0.9% 100 ml @ 100 mls/hr IVPB Q12HR [facility] Rx#:[id number] Sodium Chloride 0.9% 1, 1670 1800 750 000 ml @ 150 mls/hr IV . Q6H40M [facility] Rx#:[id number] Intake, IV Titration 553.985 766.369 94.615 Amount Amiodarone 450 mg In 81.985 Dextrose 5% in Water 250 ml @ 1 MG/MIN 34.53 mls/ hr IV .Q7H31M [facility] Rx#: [id number] Magnesium Sulfate-D5w Pmx 100 100 1 gm In Dextrose/Water 1 100ml.bag @ 100 mls/hr IVPB Q1H [facility] Rx#: [id number] Meropenem 1 gm In Sodium 100 Chloride 0.9% 100 ml @ 100 mls/hr IVPB Q12HR [facility] Rx#:[id number] Norepinephrine 4 mg In 254.000 666.369 94.615 Sodium Chloride 0.9% 250 ml @ Titrate IV .Q0M [facility] Rx#:[id number] Sodium Chloride 0.9% 99 18 ml @ 0.03 UNITS/MIN 9 mls /hr IV .Q11H7M [facility] with Vasopressin 20 unit Rx#: [id number] Output: Urine 945 815 385 Stool 1 Other: Voiding Method Indwelling Catheter Indwelling Catheter Indwelling Catheter ABP, PAP, CO, CI - Last Documented Arterial Blood Pressure 95/46 - Constitutional General appearance: Present: morbidly obese - EENT Eyes: Present: PERRLA Ears: bilateral: normal - Neck Neck: Present: normal ROM - Respiratory Respiratory: bilateral: CTA - Cardiovascular Rhythm: irregularly irregular - Gastrointestinal General gastrointestinal: Present: soft - Genitourinary Male genitourinary: scrotal edema - Integumentary Integumentary Comment(s): Discoloration to lower extremities - Neurologic Neurologic: Present: CNII-XII intact - Musculoskeletal Musculoskeletal: Present: generalized weakness - Psychiatric Psychiatric: Present: A&O x's 3, appropriate affect, intact judgment & insight - Labs CBC & Chem 7: 11/07/16 04:47 11/07/16 04:47 Labs: Abnormal Lab Results - Last 24 Hours (Table) 11/06/16 11/07/16 11/07/16 Range/Units 22:45 04:47 04:47 RBC 3.70 L 3.70 L (4.30-5.90) m/uL Hgb 11.0 L 11.0 L (13.0-17.5) gm/dL Hct 37.4 L 38.1 L (39.0-53.0) % MCV 101.1 H 103.1 H (80.0-100.0) fL MCHC 29.3 L 28.9 L (31.0-37.0) g/dL RDW 18.2 H 18.0 H (11.5-15.5) % Neutrophils # 8.0 H 7.8 H (1.3-7.7) k/uL Lymphocytes # 0.7 L 0.6 L (1.0-4.8) k/uL PT 12.9 H (9.0-12.0) sec Potassium (3.5-5.1) mmol/L Chloride (98-107) mmol/L Carbon Dioxide (22-30) mmol/L BUN (9-20) mg/dL Creatinine (0.66-1.25) mg/dL Glucose (74-99) mg/dL Calcium (8.4-10.2) mg/dL Phosphorus (2.5-4.5) mg/dL 11/07/16 Range/Units 04:47 RBC (4.30-5.90) m/uL Hgb (13.0-17.5) gm/dL Hct (39.0-53.0) % MCV (80.0-100.0) fL MCHC (31.0-37.0) g/dL RDW (11.5-15.5) % Neutrophils # (1.3-7.7) k/uL Lymphocytes # (1.0-4.8) k/uL PT (9.0-12.0) sec Potassium 5.6 H (3.5-5.1) mmol/L Chloride 112 H (98-107) mmol/L Carbon Dioxide 19 L (22-30) mmol/L BUN 42 H (9-20) mg/dL Creatinine 1.90 H (0.66-1.25) mg/dL Glucose 134 H (74-99) mg/dL Calcium 8.1 L (8.4-10.2) mg/dL Phosphorus 4.6 H (2.5-4.5) mg/dL Microbiology - Last 24 Hours (Table) 11/05/16 13:17 Urine Culture - Preliminary Urine,Catheterized Gram Neg Bacilli 11/05/16 16:00 Blood Culture - Preliminary Blood No Growth after 24 hours - Imaging and Cardiology Chest x-ray: report reviewed Assessment and Plan Plan: Assessment Septic shock secondary to severe cellulitis urinary tract infection gram- negative Morbid obesity BMI 79.9 Coumadin coagulopathy GI blood loss anemia secondary to GI bleed post EGD duodenal ulcer Hyperkalemia Chronic atrial fibrillation with RVR Acute on chronic kidney disease improving Hypertension Umbilical hernia Plan On vasopressor support Hold anticoagulation Continue consultation with pulmonology Nephrology Urology catheter was inserted Cardiology regarding atrial fibrillation Infectious disease Dr. Elias for sepsis Dr. Jasso regarding GI bleeding
--- NOTE | 2016-11-07 12:36 | PN ---
A 51-year-old gentleman who is admitted to hospital with a GI bleed, has known chronic atrial fibrillation underwent EGD and was found to have ulcers. He is not a candidate for anticoagulation at this time. He is in A. fib with controlled ventricular rate. He is on amiodarone 400 b.i.d. which I am going to decrease to 200 b.i.d., still on Levophed and systolic blood pressures are still low. On exam, heart rate is around 110 beats per minute, blood pressure is 94/46. The rest of his exam is unchanged. ASSESSMENT: 1. Atrial fibrillation with poorly controlled ventricular rate. 2. Gastrointestinal bleed. PLAN: He is not a candidate for anticoagulation. Patient will continue the amiodarone at this time.
[2016-11-07] MEDS: HYDROCORTISONE SUCCINATE 100 MG/2 ML VIAL IV SCH ×2 (20:46→23:42)
--- NOTE | 2016-11-07 21:20 | PN ---
Patient is seen for followup for acute kidney injury. His renal function has been improving since admission, with serum creatinine down to 1.9 from 2.4 mg/dL yesterday. He was admitted to the hospital with GI bleed. Endoscopy yesterday showed evidence of ulcers, but no active bleeding was noted. His hemoglobin is at 11.0 g/dL. On examination, patient is awake, comfortable. He is not in any acute distress. Blood pressure was 106/56, heart rate 111 per minute. He is afebrile. EXAMINATION OF THE HEART: S1 and S2. EXAMINATION OF THE LUNGS: Bilateral breath sounds are heard. ABDOMEN: Morbidly obese. Examination of lower extremities shows chronic skin changes, morbid obesity. Labs show sodium 140, potassium 5.6, BUN 42, serum creatinine 1.9. Hemoglobin 11.0 g/dL. ASSESSMENT: 1. Acute kidney injury, acute tubular necrosis, currently non-oliguric with improving renal function. Patient is maintained on IV fluids, which we can continue. 2. Hypotension on initial admission, maintained on hydrocortisone. Cortisol level was low at 7. 3. Hyperkalemia associated with gastrointestinal bleed, not on any potassium supplementation. Repeat labs in a.m. PLAN: Repeat labs in a.m. May continue IV fluids. Will decrease IV fluids tomorrow as long as blood pressure remains stable.
--- NOTE | 2016-11-07 23:01 | P.PN ---
Subjective Principal diagnosis: Gastrointestinal bleed, hypotension 51-year-old male who has a history of superobesity. Was seen in the wound healing Center in the past due to his significant skin condition to his legs and onto his flanks. He has a history of superobesity with a weight greater than 600 pounds. This was from his chronic edema and lack of care. He is now receiving much improved care in his skin is in much better shape. He now presents to the emergency center with concerns to gastrointestinal bleed with bright red blood per rectum. The patient has a very significant recent history or he was in the emergency center he was found evidence of sepsis as well as atrial fibrillation and acute renal failure. He was transported to [facility] for care. He underwent continuous renal replacement therapy and had recovery of his acute renal failure. He was home doing relatively well until the sudden onset of the gastrointestinal bleed. Is noted have evidence of significant Coumadin coagulopathy at this time. The patient was having difficulty passing urine and urology was consulted and they were able to pass a Mcknight catheter with multiple assistance allowing visualization of the genital. Patient's urinalysis is markedly abnormal and there is concerns to sepsis. Outside data is obtained and on October 03 urinalysis and culture were obtained. UA was also markedly abnormal and urine culture has evidence of a multidrug resistant Enterobacter cloacae. Patient underwent EGD , Multiple healing ulcerations were noted. No active bleeding was noted. Nursing staff relates that the melanotic stool resolved. Urine output has been adequate. Objective - Vital Signs Vital signs: Vital Signs Temp 97.7 F 11/07/16 20:00 Pulse 103 H 11/07/16 21:00 Resp 19 11/07/16 21:00 BP 106/69 11/07/16 08:00 Pulse Ox 96 11/07/16 21:00 Intake & Output 11/07/16 11/07/16 11/08/16 06:59 18:59 06:59 Intake Total 3666.369 2694.615 650 Output Total 816 1211 100 Balance 2850.369 1483.615 550 Weight 289.79 kg 289.79 kg Intake: IV 2900 2100 150 0.9ns bolus 1000 Meropenem 1 gm In Sodium 100 100 Chloride 0.9% 100 ml @ 100 mls/hr IVPB Q12HR [facility] Rx#:[id number] Sodium Chloride 0.9% 1, 1800 1800 150 000 ml @ 150 mls/hr IV . Q6H40M [facility] Rx#:[id number] cefTAZidime 2 gm In 200 Sodium Chloride 0.9% 100 ml @ 100 mls/hr IVPB Q8HR [facility] Rx#:[id number] Intake, IV Titration 766.369 94.615 Amount Magnesium Sulfate-D5w Pmx 100 1 gm In Dextrose/Water 1 100ml.bag @ 100 mls/hr IVPB Q1H [facility] Rx#: [id number] Norepinephrine 4 mg In 666.369 94.615 Sodium Chloride 0.9% 250 ml @ Titrate IV .Q0M [facility] Rx#:[id number] Oral 500 500 Output: Urine 815 1210 100 Stool 1 1 Other: Voiding Method Indwelling Catheter Indwelling Catheter # Bowel Movements 1 ABP, PAP, CO, CI - Last Documented Arterial Blood Pressure 80/38 - Exam 51-year-old male with superobesity seems comfortable HEENT: Anicteric conjunctiva are pink and moist nasal mucosa grossly intact without significant lesions, there is no thrush. Poor dentition Neck: The neck is supple without significant lymphadenopathy or thyromegaly. Lungs: Symmetrical air entry. Few basilar crackles. No severe wheezing. No dullness or egophony Heart: Irregular irregular. Audible S1-S2. 2/6 systolic murmur left sternal border. No heave or thrill. Abdomen: Obese with positive bowel sounds. Organs cannot be palpated through the immense abdominal wall Extremities: The upper extremities have excellent pulses they are symmetric, no significant petechiae or telangiectasia. No splinter hemorrhages were noted. The lower extremities show evidence of the significant edema with his fluid resuscitation. He with that he's developed some weeping from the significant edema. It is fortunately not very tender. No large open areas of ulceration are seen. He does have some chronic skin changes that are old with a thickened dyshidrotic skin. Neuro: Awake alert oriented to person place and time. There are no acute new gross focal sensory motor deficits. - Labs CBC & Chem 7: 11/07/16 04:47 11/07/16 04:47 Labs: Abnormal Lab Results - Last 24 Hours (Table) 11/06/16 11/07/16 11/07/16 Range/Units 22:45 04:47 04:47 RBC 3.70 L 3.70 L (4.30-5.90) m/uL Hgb 11.0 L 11.0 L (13.0-17.5) gm/dL Hct 37.4 L 38.1 L (39.0-53.0) % MCV 101.1 H 103.1 H (80.0-100.0) fL MCHC 29.3 L 28.9 L (31.0-37.0) g/dL RDW 18.2 H 18.0 H (11.5-15.5) % Neutrophils # 8.0 H 7.8 H (1.3-7.7) k/uL Lymphocytes # 0.7 L 0.6 L (1.0-4.8) k/uL PT 12.9 H (9.0-12.0) sec Potassium (3.5-5.1) mmol/L Chloride (98-107) mmol/L Carbon Dioxide (22-30) mmol/L BUN (9-20) mg/dL Creatinine (0.66-1.25) mg/dL Glucose (74-99) mg/dL Calcium (8.4-10.2) mg/dL Phosphorus (2.5-4.5) mg/dL 11/07/16 Range/Units 04:47 RBC (4.30-5.90) m/uL Hgb (13.0-17.5) gm/dL Hct (39.0-53.0) % MCV (80.0-100.0) fL MCHC (31.0-37.0) g/dL RDW (11.5-15.5) % Neutrophils # (1.3-7.7) k/uL Lymphocytes # (1.0-4.8) k/uL PT (9.0-12.0) sec Potassium 5.6 H (3.5-5.1) mmol/L Chloride 112 H (98-107) mmol/L Carbon Dioxide 19 L (22-30) mmol/L BUN 42 H (9-20) mg/dL Creatinine 1.90 H (0.66-1.25) mg/dL Glucose 134 H (74-99) mg/dL Calcium 8.1 L (8.4-10.2) mg/dL Phosphorus 4.6 H (2.5-4.5) mg/dL Microbiology - Last 24 Hours (Table) 11/05/16 13:17 Urine Culture - Final Urine,Catheterized Pseudomonas aeruginosa 11/05/16 16:00 Blood Culture - Preliminary Blood No Growth after 48 hours Laboratory Results WBC 9.5 k/uL (3.8-10.6) 11/07/16 04:47 RBC 3.70 m/uL (4.30-5.90) L 11/07/16 04:47 Hgb 11.0 gm/dL (13.0-17.5) L 11/07/16 04:47 Hct 38.1 % (39.0-53.0) L 11/07/16 04:47 MCV 103.1 fL (80.0-100.0) H 11/07/16 04:47 MCH 29.8 pg (25.0-35.0) 11/07/16 04:47 MCHC 28.9 g/dL (31.0-37.0) L 11/07/16 04:47 RDW 18.0 % (11.5-15.5) H 11/07/16 04:47 Plt Count 298 k/uL (150-450) 11/07/16 04:47 Neutrophils % 82 % 11/07/16 04:47 Lymphocytes % 7 % 11/07/16 04:47 Monocytes % 4 % 11/07/16 04:47 Eosinophils % 5 % 11/07/16 04:47 Basophils % 1 % 11/07/16 04:47 Neutrophils # 7.8 k/uL (1.3-7.7) H 11/07/16 04:47 Lymphocytes # 0.6 k/uL (1.0-4.8) L 11/07/16 04:47 Monocytes # 0.4 k/uL (0-1.0) 11/07/16 04:47 Eosinophils # 0.5 k/uL (0-0.7) 11/07/16 04:47 Basophils # 0.1 k/uL (0-0.2) 11/07/16 04:47 Hypochromasia Marked 11/07/16 04:47 Poikilocytosis Slight 11/06/16 22:45 Anisocytosis Slight 11/07/16 04:47 Macrocytosis Moderate 11/07/16 04:47 PT 12.9 sec (9.0-12.0) H 11/07/16 04:47 INR 1.3 (<1.1) 11/07/16 04:47 APTT 23.7 sec (22.0-30.0) 11/07/16 04:47 Sample Site lrad 11/05/16 08:39 ABG pH 7.34 (7.35-7.45) L 11/05/16 08:39 ABG pCO2 38 mmHg (35-45) 11/05/16 08:39 ABG pO2 75 mmHg (83-108) L 11/05/16 08:39 ABG HCO3 20 mmol/L (21-25) L 11/05/16 08:39 ABG Total CO2 21 mmol/L (19-24) 11/05/16 08:39 ABG O2 Saturation 94.0 % (94-97) 11/05/16 08:39 ABG Base Excess -4.9 mmol/L 11/05/16 08:39 FiO2 21 % 11/05/16 08:39 Sodium 140 mmol/L (137-145) 11/07/16 04:47 Potassium 5.6 mmol/L (3.5-5.1) H 11/07/16 04:47 Chloride 112 mmol/L (98-107) H 11/07/16 04:47 Carbon Dioxide 19 mmol/L (22-30) L 11/07/16 04:47 Anion Gap 9 mmol/L 11/07/16 04:47 BUN 42 mg/dL (9-20) H 11/07/16 04:47 Creatinine 1.90 mg/dL (0.66-1.25) H 11/07/16 04:47 Est GFR (MDRD) Af Amer 45 (>60 ml/min/1.73 sqM) 11/07/16 04:47 Est GFR (MDRD) Non-Af 37 (>60 ml/min/1.73 sqM) 11/07/16 04:47 Glucose 134 mg/dL (74-99) H 11/07/16 04:47 POC Glucose (mg/dL) 136 mg/dL (75-99) H 11/05/16 06:05 POC Glu Med Surg Nurse ID LeMere, Katharina 11/05/16 06:05 Plasma Lactic Acid Chong 1.1 mmol/L (0.7-2.0) 11/06/16 22:45 Calcium 8.1 mg/dL (8.4-10.2) L 11/07/16 04:47 Phosphorus 4.6 mg/dL (2.5-4.5) H 11/07/16 04:47 Magnesium 2.1 mg/dL (1.6-2.3) 11/07/16 04:47 Total Bilirubin 0.9 mg/dL (0.2-1.3) 11/05/16 03:30 AST 13 U/L (17-59) L 11/05/16 03:30 ALT 21 U/L (21-72) 11/05/16 03:30 Alkaline Phosphatase 88 U/L (38-126) 11/05/16 03:30 Total Creatine Kinase 25 U/L (55-170) L 11/05/16 03:30 CK-MB (CK-2) 0.4 ng/mL (0.0-2.4) 11/05/16 03:30 CK-MB (CK-2) Rel Index 1.6 11/05/16 03:30 Troponin I <0.012 ng/mL (0.000-0.034) 11/05/16 03:30 Total Protein 5.7 g/dL (6.3-8.2) L 11/05/16 03:30 Albumin 2.3 g/dL (3.5-5.0) L 11/05/16 03:30 Lipase 47 U/L (23-300) 11/05/16 03:30 Cortisol 7 ug/dL 11/06/16 22:45 Urine Color Yellow 11/05/16 13:17 Urine Appearance Turbid (Clear) 11/05/16 13:17 Urine pH 5.0 (5.0-8.0) 11/05/16 13:17 Ur Specific [place] 1.016 (1.001-1.035) 11/05/16 13:17 Urine Protein 1+ (Negative) H 11/05/16 13:17 Urine Glucose (UA) Negative (Negative) 11/05/16 13:17 Urine Ketones Trace (Negative) H 11/05/16 13:17 Urine Blood Moderate (Negative) H 11/05/16 13:17 Urine Nitrate Negative (Negative) 11/05/16 13:17 Urine Bilirubin Negative (Negative) 11/05/16 13:17 Urine Urobilinogen 2.0 mg/dL (<2.0) 11/05/16 13:17 Ur Leukocyte Esterase Large (Negative) H 11/05/16 13:17 Urine RBC 77 /hpf (0-5) H 11/05/16 13:17 Urine WBC >182 /hpf (0-5) H 11/05/16 13:17 Urine WBC Clumps Many /hpf (None) H 11/05/16 13:17 Ur Squamous Epith Cells 1 /hpf (0-4) 11/05/16 13:17 Urine Bacteria Rare /hpf (None) H 11/05/16 13:17 Hyaline Casts 14 /lpf (0-2) H 11/05/16 13:17 Urine Mucus Occasional /hpf (None) H 11/05/16 13:17 Blood Type O Positive 11/05/16 03:30 Blood Type Recheck No 11/05/16 03:30 Antibody Screen NEGATIVE 11/05/16 03:30 Crossmatch See Detail 11/05/16 03:30 Transfuse Plasma 11/05/16 11/05/16 03:30 Spec Expiration Date 11/08/2016 - 1590 11/05/16 03:30 Microbiology 11/05/16 13:17 Urine,Catheterized Urine Culture - Final Pseudomonas aeruginosa 11/05/16 16:00 Blood Blood Culture - Preliminary No Growth after 48 hours Assessment and Plan (1) Septic shock Narrative/Plan: 51-year-old male who suffers from obesity presents to hospital with evidence of a 48 hour history of increasing amounts of melena or hematochezia. He was not having much abdominal pain. Both his recent history of hospitalization at the tertiary care center with acute renal failure he was brought into the emergency center. There is evidence of an elevated creatinine but improved from that from his last year visit when he was in acute renal failure. He does have evidence of the significant gastrointestinal bleeding and is being seen by surgery and gastroenterology. His Coumadin coagulopathy is improved with his INR going from 8.2-1.2 with this time. Plans for endoscopic evaluation if possible. The patient was seen in the outpatient setting and on November 03 had a urinalysis and culture performed. UA was markedly abnormal and urine culture shows evidence of a multidrug resistant Enterobacter cloacae. Consequently for antibiotic therapy carbapenem with meropenem is started with the dose that is hopefully acceptable for his current BMI. Some further culture data is becoming available and have pseudomonas as well as Proteus in the urine corrected from a prior Enterobacter. with this antibiotic therapy is altered to ceftazidime from carbapenem. Patient seems to have a mild rash Benadryl as added. His atrial fibrillation has improved as his sepsis has been treated. Nephrology has evaluated without plans for renal replacement therapy at this time. Mcknight catheter is in place and urine output is being monitored closely Status: Acute (2) Gram negative sepsis Status: Acute (3) Enterobacter sepsis Status: Acute (4) Gastrointestinal hemorrhage Status: Acute
[2016-11-08 05:17] LABS: Calcium 8.3 mg/dL (8.4-10.2); Magnesium 2.1 mg/dL (1.6-2.3); Phosphorous 4.2 mg/dL (2.5-4.5); Potassium 5.6 mmol/L (3.5-5.1)
[2016-11-08 05:23] LABS: INR 1.3 (<1.1); Partial Thromboplastin Time 23.4 sec (22.0-30.0); Prothrombin Time 13.2 sec (9.0-12.0)
[2016-11-08 05:37] LABS: Anisocytosis Slight; Basophils % (A) 0 %; CH 28.4; Eosinophils % (A) 0 %; HDW 3.43; HGB 10.3 gm/dL (13.0-17.5); Hypochromasia Marked; Luc # (Auto) 0.06; Luc % (Auto) 1; Lymphocytes # (A) 0.5 k/uL (1.0-4.8); Lymphocytes % (A) 9 %; MCH 29.3 pg (25.0-35.0); MCHC 28.7 g/dL (31.0-37.0); MCV 101.9 fL (80.0-100.0); Macrocytosis Moderate; Monocytes # (A) 0.1 k/uL (0-1.0); Monocytes % (A) 2 %; Neutrophils # (A) 4.7 k/uL (1.3-7.7); Neutrophils % (A) 88 %; Poikilocytosis Slight; RBC 3.53 m/uL (4.30-5.90); RDW 18.1 % (11.5-15.5); WBC 5.4 k/uL (3.8-10.6); WBC (Perox) 5.43
--- NOTE | 2016-11-08 08:46 | P.PN ---
Subjective Progress note dated 11/07/2016 This is a 51-year-old male who was admitted on 11/05/2016. The patient was seen yesterday by my nurse practitioner myself. He remains in the ICU. He is awake and alert. I was called last night by the nurse because of low blood pressures. I believe they were treating a number not the patient. He never was tachycardic. He was awake and alert. He was lucid. He had good urine output. Anyway currently the patient's getting O2 at 2 L. His levophed is down to 6 mics per minute. Getting appointment 9 IV at 150 an hour. The patient's random cortisol level was low at 7. We'll attempt to see whether or not hydrocortisone makes a difference in his blood pressure. Other 90s doing reasonably well. Progress note dated 11/08/2016 51-year-old male admitted on 11/05/2016. The patient is doing better. His cortisol level was low. The patient was placed on hydrocortisone 100 mg every 8 hours. His blood pressure has improved. Levophed is currently off. He is getting appointment 9 IV at 1 50 mL an hour. He is getting O2 by nasal cannula 2 L/m. He can be transferred out of the unit today. We consented general medical floor with telemetry. Feeling much much better. Objective - Vital Signs Vital signs: Vital Signs Temp 97.6 F 11/08/16 04:00 Pulse 100 11/08/16 07:00 Resp 13 11/08/16 07:00 BP 106/69 11/07/16 08:00 Pulse Ox 93 L 11/08/16 07:00 Intake & Output 11/07/16 11/08/16 11/08/16 18:59 06:59 18:59 Intake Total 2694.615 2555.079 150 Output Total 1211 737 35 Balance 6053.653 2214.079 115 Weight 289.79 kg 289.79 kg Intake: IV 2100 1800 150 Meropenem 1 gm In Sodium 100 Chloride 0.9% 100 ml @ 100 mls/hr IVPB Q12HR [facility] Rx#:[id number] Sodium Chloride 0.9% 1, 1800 1800 150 000 ml @ 150 mls/hr IV . Q6H40M [facility] Rx#:[id number] cefTAZidime 2 gm In 200 Sodium Chloride 0.9% 100 ml @ 100 mls/hr IVPB Q8HR [facility] Rx#:[id number] Intake, IV Titration 94.615 255.079 Amount Norepinephrine 4 mg In 94.615 255.079 Sodium Chloride 0.9% 250 ml @ Titrate IV .Q0M [facility] Rx#:[id number] Oral 500 500 Output: Urine 1210 735 35 Stool 1 2 Other: Voiding Method Indwelling Catheter Indwelling Catheter # Bowel Movements 1 ABP, PAP, CO, CI - Last Documented Arterial Blood Pressure 108/54 - Exam No acute distress, oriented 3. HEENT examinations unremarkable. Nasal O2 in place. Mucous membranes are moist. Neck supple. Full range of motion. No adenopathy. Cardiovascular examination reveals distant heart sounds. S1-S2 normal. No S3- S4. No murmur. Lungs are relatively clear breath sounds are equal. Abdomen is obese. Bowel sounds are heard. Extremities reveal evidence of diffuse bilateral cellulitis with chronic venous stasis changes and significant edema. - Labs CBC & Chem 7: 11/08/16 04:34 11/08/16 04:34 Labs: Abnormal Lab Results - Last 24 Hours (Table) 11/08/16 11/08/16 11/08/16 Range/Units 04:34 04:34 04:34 RBC 3.53 L (4.30-5.90) m/uL Hgb 10.3 L (13.0-17.5) gm/dL Hct 36.0 L (39.0-53.0) % MCV 101.9 H (80.0-100.0) fL MCHC 28.7 L (31.0-37.0) g/dL RDW 18.1 H (11.5-15.5) % Lymphocytes # 0.5 L (1.0-4.8) k/uL PT 13.2 H (9.0-12.0) sec Potassium 5.6 H (3.5-5.1) mmol/L Chloride 110 H (98-107) mmol/L Carbon Dioxide 19 L (22-30) mmol/L BUN 34 H (9-20) mg/dL Creatinine 1.60 H (0.66-1.25) mg/dL Glucose 134 H (74-99) mg/dL Calcium 8.3 L (8.4-10.2) mg/dL Microbiology - Last 24 Hours (Table) 11/05/16 13:17 Urine Culture - Final Urine,Catheterized Pseudomonas aeruginosa 11/05/16 16:00 Blood Culture - Preliminary Blood No Growth after 48 hours Assessment and Plan (1) Anemia Status: Acute (2) Atrial fibrillation with RVR Status: Acute (3) Enterobacter sepsis Status: Acute (4) Gram negative sepsis Status: Acute (5) Obesity Status: Acute (6) Septic shock Status: Acute (7) Acute renal failure Status: Acute (8) Cellulitis Status: Acute Plan: Plan dated 11/07/2016 The patient's levophed will continue to be weaned down. Because his cortisol level was low we'll go ahead and try to see whether the hydrocortisone makes a difference for him. We'll give him 100 mg IV push. I will I'll review the medications labs and x-rays. Additional recommendations suggestions are forthcoming. Once we get him off the pressor, he can move out to the floor. Antibiotics have been adjusted accordingly. We'll continue to follow. Prognosis is guarded. Plan dated 11/08/2016 The patient's vasopressor has been turned off. He seems to have responded to hydrocortisone 100 mg every 8. We'll transfer him out of the unit today. He' ll go to the general medical floor without telemetry. No additional recommendations are made. His prognosis is guarded. Eventually was transferred to transition him to Cortef 20 g in the morning and 10 g in the evening. Time with Patient: Less than 30
[2016-11-08] MEDS: SODIUM CHLORIDE 0.9% 1,000 ML IV SCH ×3 (09:13→18:25)
[2016-11-08] MEDS: HYDROCORTISONE SUCCINATE 100 MG/2 ML VIAL IV SCH ×2 (09:14→15:53)
[2016-11-08] MEDS: PANTOPRAZOLE 40 MG/10 ML VIAL IV SCH (09:14)
[2016-11-08] MEDS: TRIAMCINOLONE 0.1% CREAM 80 GM TUBE TOPICAL SCH ×2 (09:15→23:10)
[2016-11-08] MEDS: AMIODARONE 200 MG TAB PO SCH ×2 (09:15→23:10)
--- NOTE | 2016-11-08 10:02 | PN ---
A 51-year-old gentleman who is admitted to the hospital with atrial fibrillation with poorly controlled ventricular rate and GI bleed. Underwent an EGD and was found to have ulcers and he is not a candidate for long-term anticoagulation at this time. He is on amiodarone 400 b.i.d. for optimal control of his heart rate and I am going to add beta daniel. Up until now patient was hypotensive and was on pressors. He is no longer on the norepinephrine. On exam, comfortable at rest. Heart rate is 100 beats per minute, blood pressure is 108/54, respiratory rate is 18. Chest exam reveals good air entry bilaterally. Heart exam reveals first and second heart sounds, irregular rhythm. Abdomen is distended. Patient is morbidly obese. Exam of the extremities reveals 1+ edema with chronic stasis changes. Potassium is elevated at 5.6. BUN and creatinine 34 and 1.6. ASSESSMENT: 1. Atrial fibrillation with poorly controlled ventricular rate. Plan, I am going to add Lopressor 25 b.i.d. for better control of his heart rate. 2. Chronic renal insufficiency with elevated potassium. Please keep an eye on it.
--- NOTE | 2016-11-08 10:47 | P.PN ---
Subjective Principal diagnosis: GI bleed 51-year-old gentleman history of atrial fibrillation admitted with acute upper GI bleed with coffee-ground emesis and maroon-colored bowel movements with Coumadin coagulopathy status post EGD with findings of multiple duodenal bulb antral ulcers without active bleeding. Tolerating regular diet. Denies abdominal pain. Hemoglobin 10.3. No recurrence of coffee-ground emesis and maroon-colored bowel movements last night. Anticoagulation on hold. Gram- negative urine culture. Off IV pressors. Transfer to cardiac telemetry today. Objective - Vital Signs Vital signs: Vital Signs Temp 98 F 11/08/16 08:00 Pulse 108 H 11/08/16 10:00 Resp 9 L 11/08/16 10:00 BP 106/69 11/07/16 08:00 Pulse Ox 98 11/08/16 10:00 Intake & Output 11/07/16 11/08/16 11/08/16 18:59 06:59 18:59 Intake Total 2694.615 2555.079 600 Output Total 1211 737 185 Balance 2882.696 5616.079 415 Weight 289.79 kg 289.79 kg Intake: IV 2100 1800 600 Meropenem 1 gm In Sodium 100 Chloride 0.9% 100 ml @ 100 mls/hr IVPB Q12HR [facility] Rx#:[id number] Sodium Chloride 0.9% 1, 1800 1800 600 000 ml @ 150 mls/hr IV . Q6H40M [facility] Rx#:[id number] cefTAZidime 2 gm In 200 Sodium Chloride 0.9% 100 ml @ 100 mls/hr IVPB Q8HR [facility] Rx#:[id number] Intake, IV Titration 94.615 255.079 Amount Norepinephrine 4 mg In 94.615 255.079 Sodium Chloride 0.9% 250 ml @ Titrate IV .Q0M [facility] Rx#:[id number] Oral 500 500 Output: Urine 1210 735 185 Stool 1 2 Other: Voiding Method Indwelling Catheter Indwelling Catheter Indwelling Catheter # Bowel Movements 1 ABP, PAP, CO, CI - Last Documented Arterial Blood Pressure 99/49 - Exam General appearance: The patient is alert, oriented, in no acute distress. HET: Head is normocephalic and atraumatic. Pupils are equal and reactive. Oropharynx is clear without lesions. Neck: Supple without lymphadenopathy. Trachea midline. Heart: S1 S2. Irregular. Lungs: No crackles or wheezes are heard. Abdomen: Soft, nontender, nondistended with bowel sounds. No peritoneal signs. No palpable organomegaly or masses. Mcknight with clear elva urine. Extremities: Bilateral lower extremity edema. Chronic thickened skin changes. Neurological: No focal deficits. Strength and sensation are grossly intact. - Labs CBC & Chem 7: 11/08/16 04:34 11/08/16 04:34 Labs: Abnormal Lab Results - Last 24 Hours (Table) 11/08/16 11/08/16 11/08/16 Range/Units 04:34 04:34 04:34 RBC 3.53 L (4.30-5.90) m/uL Hgb 10.3 L (13.0-17.5) gm/dL Hct 36.0 L (39.0-53.0) % MCV 101.9 H (80.0-100.0) fL MCHC 28.7 L (31.0-37.0) g/dL RDW 18.1 H (11.5-15.5) % Lymphocytes # 0.5 L (1.0-4.8) k/uL PT 13.2 H (9.0-12.0) sec Potassium 5.6 H (3.5-5.1) mmol/L Chloride 110 H (98-107) mmol/L Carbon Dioxide 19 L (22-30) mmol/L BUN 34 H (9-20) mg/dL Creatinine 1.60 H (0.66-1.25) mg/dL Glucose 134 H (74-99) mg/dL Calcium 8.3 L (8.4-10.2) mg/dL Microbiology - Last 24 Hours (Table) 11/05/16 13:17 Urine Culture - Final Urine,Catheterized Pseudomonas aeruginosa 11/05/16 16:00 Blood Culture - Preliminary Blood No Growth after 48 hours Assessment and Plan Plan: 1. Acute upper GI bleed coffee-ground emesis and maroon-colored bowel movements secondary to multiple duodenal and antral ulcer status post EGD. 2. Acute blood loss anemia. 3. History of chronic atrial fibrillation with Coumadin coagulopathy on admission corrected. Anticoagulation on hold. 4. Morbid obesity BMI 79.9. 5. Gram-negative UTI. Recommendations: 1. Soft diet. Transfer to cardiac/selective floor. 2. Monitoring of CBC. IV Protonix 40 mg twice daily. 3. Continue to hold anticoagulation. 4. Will continue to follow. Assessment and plan of care discussed with Dr. Ying.
[2016-11-08] MEDS: METOPROLOL TARTRATE 25 MG TAB PO SCH ×2 (12:00→23:10)
--- NOTE | 2016-11-08 12:15 | P.PN ---
Subjective Patient continues in intensive care unit. Vasopressors have been discontinued blood pressure stabilized. Cleared by clother in to go to stepdown unit hemoglobin stable Objective - Vital Signs Vital signs: Vital Signs Temp 98 F 11/08/16 08:00 Pulse 105 H 11/08/16 11:00 Resp 13 11/08/16 11:00 BP 106/69 11/07/16 08:00 Pulse Ox 95 11/08/16 11:00 Intake & Output 11/07/16 11/08/16 11/08/16 18:59 06:59 18:59 Intake Total 2694.615 2555.079 850 Output Total 1211 737 185 Balance 6285.357 5401.079 665 Weight 289.79 kg 289.79 kg Intake: IV 2100 1800 750 Meropenem 1 gm In Sodium 100 Chloride 0.9% 100 ml @ 100 mls/hr IVPB Q12HR [facility] Rx#:[id number] Sodium Chloride 0.9% 1, 1800 1800 750 000 ml @ 150 mls/hr IV . Q6H40M [facility] Rx#:[id number] cefTAZidime 2 gm In 200 Sodium Chloride 0.9% 100 ml @ 100 mls/hr IVPB Q8HR [facility] Rx#:[id number] Intake, IV Titration 94.615 255.079 100 Amount Norepinephrine 4 mg In 94.615 255.079 Sodium Chloride 0.9% 250 ml @ Titrate IV .Q0M [facility] Rx#:[id number] cefTAZidime 2 gm In 100 Sodium Chloride 0.9% 100 ml @ 100 mls/hr IVPB Q8HR [facility] Rx#:[id number] Oral 500 500 Output: Urine 1210 735 185 Stool 1 2 Other: Voiding Method Indwelling Catheter Indwelling Catheter Indwelling Catheter # Bowel Movements 1 ABP, PAP, CO, CI - Last Documented Arterial Blood Pressure 116/68 - Constitutional General appearance: Present: morbidly obese - EENT Eyes: Present: PERRLA Ears: bilateral: normal - Neck Neck: Present: normal ROM - Respiratory Respiratory: bilateral: CTA - Cardiovascular Rhythm: irregularly irregular - Gastrointestinal General gastrointestinal: Present: soft - Integumentary Integumentary Comment(s): Lower extremities of discolored. Has a scaly dry skin Integumentary: Present: cellulitis - Neurologic Neurologic: Present: CNII-XII intact - Musculoskeletal Musculoskeletal: Present: generalized weakness - Psychiatric Psychiatric: Present: A&O x's 3, appropriate affect, intact judgment & insight - Labs CBC & Chem 7: 11/08/16 04:34 11/08/16 04:34 Labs: Abnormal Lab Results - Last 24 Hours (Table) 11/08/16 11/08/16 11/08/16 Range/Units 04:34 04:34 04:34 RBC 3.53 L (4.30-5.90) m/uL Hgb 10.3 L (13.0-17.5) gm/dL Hct 36.0 L (39.0-53.0) % MCV 101.9 H (80.0-100.0) fL MCHC 28.7 L (31.0-37.0) g/dL RDW 18.1 H (11.5-15.5) % Lymphocytes # 0.5 L (1.0-4.8) k/uL PT 13.2 H (9.0-12.0) sec Potassium 5.6 H (3.5-5.1) mmol/L Chloride 110 H (98-107) mmol/L Carbon Dioxide 19 L (22-30) mmol/L BUN 34 H (9-20) mg/dL Creatinine 1.60 H (0.66-1.25) mg/dL Glucose 134 H (74-99) mg/dL Calcium 8.3 L (8.4-10.2) mg/dL Microbiology - Last 24 Hours (Table) 11/05/16 13:17 Urine Culture - Final Urine,Catheterized Pseudomonas aeruginosa 11/05/16 16:00 Blood Culture - Preliminary Blood No Growth after 48 hours Assessment and Plan Plan: Assessment Septic shock secondary to cellulitis to urinary tract infection Enterobacter Morbid obesity BMI 79.9 Coumadin coagulopathy normal at this time Acute of blood loss anemia secondary to GI bleed post EGD noted duodenal ulcer Hyperkalemia Chronic atrial fibrillation with RVR of Lopressor added Acute on chronic kidney disease improving History of hypertension Treating hypotension Umbilical hernia Plan Transfer to stepdown unit Hold anticoagulation Continue consultation with nephrology Urology Cardiology regarding atrial fibrillation Dr. Elias regarding sepsis Dr. Jasso regarding GI bleed
--- NOTE | 2016-11-08 14:16 | CDI ---
In responding to this query, please exercise your independent professional judgment. The [facility] Coding Staff and Clinical Documentation Specialists appreciate your assistance in clarifying documentation, maintaining compliance with coding guidelines, accurately documenting patients condition and capturing severity of illness. The fact that a question is asked does not imply that any particular answer is desired or expected. Communication forms are a method of clarifying documentation and are not made part of the Legal Health Record. Thank you in advance for your clarification. Last Revision, July 2015 Ade Kumar [address] [facility] [place] [address] Documentation Clarification Form Date: 11/08/2016 1:50:00 PM From: Brigette Rice Admit Date: 11/05/2016 4:02:00 AM Patient Name: Demetri Reich Visit Number: [id number] Discharge Date: Dr. Najma Davis/Dr. Artemio Tan History/Risk Factors: Renal disease, Chronic Atrial Fibrillation, hypertension, dialysis dependent KIRAN due to Sepsis in September, Former smoker, Admission BUN 28, CR 2.30, GFR 30 Current BUN 34, CR 1.60 GFR 45 Patients Baseline: BUN CR/GFR: Not Noted Clinical Indicators: Present with bloody stools for several days. He was hypotensive in the ED. Vital Signs: 43/31 147 19 97.5 92 % RA 11/05/16 Nephrology note: KIRAN (due to ischemic ATN from GI bleeding) vs. CKD ( with h/o HD dependent KIRAN x2 in the past 3 years most recently last month). 11/08/16 Internal Medicine: Acute on chronic kidney disease improving. Treatment: Monitor Labs IVF @ 150mls/hr In order to capture the severity of condition, please clarify if the condition signifies: CKD Stage 1 (GFR > 90) CKD Stage 2 (GFR 60-89) CKD Stage 3 (GFR 30-59) CKD Stage 4 (GFR 15-29) CKD Stage 5 (GFR <15) ESRD Unable to determine or CKD ruled out Other condition, please specify Please document in your progress notes in order to capture severity of illness and risk of mortality. Include clinical findings that support your diagnosis. FYI: Press F11 to launch patient chart. Place X here if this finding has no clinical significance, is not applicable or if you are not able to provide any additional documentation. MTDD
[2016-11-08] MEDS: CEFEPIME 2 GM in SODIUM CHLORIDE 0.9% 50 ML IVPB SCH (15:55)
--- NOTE | 2016-11-08 17:01 | P.CON ---
Consult Note - . Consult date: 11/08/16 Assessment/Plan:: This consultation report was performed per the request of Dr. Cee regarding a partially avulsed right hallux nail plate which was thickened and dystrophic. This patient is a 51-year-old gentleman that is morbidly obeseover 600 pounds. He came into the hospital with complaints of bloody bowel movements over the past 2 days. The patient has a history of recent complicated severe sepsis and was treated at [facility], due to cellulitis of his lower extremity. The patient is currently maintained on Coumadin for his history of atrial fibrillation. The patient apparently had Coumadin coagulopathy on a prior admission to [facility]. He was maintained on CRRT due to an acute kidney injury and kidney function apparently has improved prior to discharge. In the ER the patient was noted to be in atrial fibrillation with rapid ventricular rate. Patient was also noted to have a low blood pressure. The patient was started on vasopressors support with vasopressin The patient was also noted have a Coumadin quadrant adenopathy with INR greater than 8 and bleeding per rectum. Patient is admitted to medical floor. Review of systems All systems negative noted in HPI Past medical history significant for atrial fibrillation dialysis hypertension renal disease skin disorder Physical examination revealed thick dystrophic apparently mycotic Harvey and neglected nails both feet. The patient stated that while hospitalized and [facility] and sometime after the date of 10/13/2016 while changing his bedding the toenail on his right great toe was accidentally partially self avulsed. The patient stated that hemorrhage occurred and dried hemorrhage is seen to be present this date the patient stated that the nail on its own avulsed itself earlier this date. Capillary refill is less than 3 seconds to all digits of both feet there was no signs of infection seen involving the patient's right hallux. Assessment and plan 1. Shock likely secondary to severe sepsis due to cellulitis 2. Gross morbidity 3. Coumadin coagulopathy 4. Acute blood loss anemia secondary to GI bleed 5. Chronic atrial fibrillation with rapid ventricular rate 6. Chronic kidney disease 7. History of hypertension 8. Umbilical herniation 9. Onychomycosis of the patient's nails both feet 2 through 5 This date I applied Neosporin cream and wrapped the patient's hallux with 1 inch gauze. Same was ordered on a daily basis. Thank you for considering me in the care your patient.
--- NOTE | 2016-11-08 19:41 | P.PN ---
Subjective Principal diagnosis: Gastrointestinal bleed, hypotension 51-year-old male who has a history of superobesity. Was seen in the wound healing Center in the past due to his significant skin condition to his legs and onto his flanks. He has a history of superobesity with a weight greater than 600 pounds. This was from his chronic edema and lack of care. He is now receiving much improved care in his skin is in much better shape. He now presents to the emergency center with concerns to gastrointestinal bleed with bright red blood per rectum. The patient has a very significant recent history or he was in the emergency center he was found evidence of sepsis as well as atrial fibrillation and acute renal failure. He was transported to [facility] for care. He underwent continuous renal replacement therapy and had recovery of his acute renal failure. He was home doing relatively well until the sudden onset of the gastrointestinal bleed. Is noted have evidence of significant Coumadin coagulopathy at this time. The patient was having difficulty passing urine and urology was consulted and they were able to pass a Mcknight catheter with multiple assistance allowing visualization of the genital. Patient's urinalysis is markedly abnormal and there is concerns to sepsis. Outside data is obtained and on October 03 urinalysis and culture were obtained. UA was also markedly abnormal and urine culture has evidence of a multidrug resistant Enterobacter cloacae. Patient underwent EGD , Multiple healing ulcerations were noted. No active bleeding was noted. Nursing staff relates that the melanotic stool resolved. Urine output has been adequate. Feeling better today. We'll moving out of the ICU. Further culture data is available Objective - Vital Signs Vital signs: Vital Signs Temp 97.5 F L 11/08/16 18:31 Pulse 95 11/08/16 18:31 Resp 16 11/08/16 18:31 BP 105/65 11/08/16 18:31 Pulse Ox 97 11/08/16 18:31 Intake & Output 11/08/16 11/08/16 11/09/16 06:59 18:59 06:59 Intake Total 2555.079 1850 Output Total 737 635 Balance 0622.833 1665 Weight 289.79 kg 289.79 kg Intake: IV 1800 1650 Sodium Chloride 0.9% 1, 1800 1650 000 ml @ 150 mls/hr IV . Q6H40M [facility] Rx#:[id number] Intake, IV Titration 255.079 200 Amount Cefepime 2 gm In Sodium 100 Chloride 0.9% 50 ml @ 100 mls/hr IVPB Q8HR [facility] Rx# :[id number] Norepinephrine 4 mg In 255.079 Sodium Chloride 0.9% 250 ml @ Titrate IV .Q0M [facility] Rx#:[id number] cefTAZidime 2 gm In 100 Sodium Chloride 0.9% 100 ml @ 100 mls/hr IVPB Q8HR [facility] Rx#:[id number] Oral 500 Output: Urine 735 635 Stool 2 Other: Voiding Method Indwelling Catheter Indwelling Catheter ABP, PAP, CO, CI - Last Documented Arterial Blood Pressure 118/67 - Exam 51-year-old male with superobesity seems comfortable HEENT: Anicteric conjunctiva are pink and moist nasal mucosa grossly intact without significant lesions, there is no thrush. Poor dentition Neck: The neck is supple without significant lymphadenopathy or thyromegaly. Lungs: Symmetrical air entry. Few basilar crackles. No severe wheezing. No dullness or egophony Heart: Irregular irregular. Audible S1-S2. 2/6 systolic murmur left sternal border. No heave or thrill. Abdomen: Obese with positive bowel sounds. Organs cannot be palpated through the immense abdominal wall Extremities: The upper extremities have excellent pulses they are symmetric, no significant petechiae or telangiectasia. No splinter hemorrhages were noted. The lower extremities show evidence of the significant edema with his fluid resuscitation. He with that he's developed some weeping from the significant edema. It is fortunately not very tender. No large open areas of ulceration are seen. He does have some chronic skin changes that are old with a thickened dyshidrotic skin. Neuro: Awake alert oriented to person place and time. There are no acute new gross focal sensory motor deficits. - Labs CBC & Chem 7: 11/08/16 04:34 11/08/16 04:34 Labs: Abnormal Lab Results - Last 24 Hours (Table) 11/08/16 11/08/16 11/08/16 Range/Units 04:34 04:34 04:34 RBC 3.53 L (4.30-5.90) m/uL Hgb 10.3 L (13.0-17.5) gm/dL Hct 36.0 L (39.0-53.0) % MCV 101.9 H (80.0-100.0) fL MCHC 28.7 L (31.0-37.0) g/dL RDW 18.1 H (11.5-15.5) % Lymphocytes # 0.5 L (1.0-4.8) k/uL PT 13.2 H (9.0-12.0) sec Potassium 5.6 H (3.5-5.1) mmol/L Chloride 110 H (98-107) mmol/L Carbon Dioxide 19 L (22-30) mmol/L BUN 34 H (9-20) mg/dL Creatinine 1.60 H (0.66-1.25) mg/dL Glucose 134 H (74-99) mg/dL Calcium 8.3 L (8.4-10.2) mg/dL Microbiology - Last 24 Hours (Table) 11/05/16 16:00 Blood Culture - Preliminary Blood No Growth after 72 hours 11/05/16 13:17 Urine Culture - Final Urine,Catheterized Pseudomonas aeruginosa Laboratory Results WBC 5.4 k/uL (3.8-10.6) 11/08/16 04:34 RBC 3.53 m/uL (4.30-5.90) L 11/08/16 04:34 Hgb 10.3 gm/dL (13.0-17.5) L 11/08/16 04:34 Hct 36.0 % (39.0-53.0) L 11/08/16 04:34 MCV 101.9 fL (80.0-100.0) H 11/08/16 04:34 MCH 29.3 pg (25.0-35.0) 11/08/16 04:34 MCHC 28.7 g/dL (31.0-37.0) L 11/08/16 04:34 RDW 18.1 % (11.5-15.5) H 11/08/16 04:34 Plt Count 260 k/uL (150-450) 11/08/16 04:34 Neutrophils % 88 % 11/08/16 04:34 Lymphocytes % 9 % 11/08/16 04:34 Monocytes % 2 % 11/08/16 04:34 Eosinophils % 0 % 11/08/16 04:34 Basophils % 0 % 11/08/16 04:34 Neutrophils # 4.7 k/uL (1.3-7.7) 11/08/16 04:34 Lymphocytes # 0.5 k/uL (1.0-4.8) L 11/08/16 04:34 Monocytes # 0.1 k/uL (0-1.0) 11/08/16 04:34 Eosinophils # 0.0 k/uL (0-0.7) 11/08/16 04:34 Basophils # 0.0 k/uL (0-0.2) 11/08/16 04:34 Hypochromasia Marked 11/08/16 04:34 Poikilocytosis Slight 11/08/16 04:34 Anisocytosis Slight 11/08/16 04:34 Macrocytosis Moderate 11/08/16 04:34 PT 13.2 sec (9.0-12.0) H 11/08/16 04:34 INR 1.3 (<1.1) 11/08/16 04:34 APTT 23.4 sec (22.0-30.0) 11/08/16 04:34 Sample Site lrad 11/05/16 08:39 ABG pH 7.34 (7.35-7.45) L 11/05/16 08:39 ABG pCO2 38 mmHg (35-45) 11/05/16 08:39 ABG pO2 75 mmHg (83-108) L 11/05/16 08:39 ABG HCO3 20 mmol/L (21-25) L 11/05/16 08:39 ABG Total CO2 21 mmol/L (19-24) 11/05/16 08:39 ABG O2 Saturation 94.0 % (94-97) 11/05/16 08:39 ABG Base Excess -4.9 mmol/L 11/05/16 08:39 FiO2 21 % 11/05/16 08:39 Sodium 137 mmol/L (137-145) 11/08/16 04:34 Potassium 5.6 mmol/L (3.5-5.1) H 11/08/16 04:34 Chloride 110 mmol/L (98-107) H 11/08/16 04:34 Carbon Dioxide 19 mmol/L (22-30) L 11/08/16 04:34 Anion Gap 8 mmol/L 11/08/16 04:34 BUN 34 mg/dL (9-20) H 11/08/16 04:34 Creatinine 1.60 mg/dL (0.66-1.25) H 11/08/16 04:34 Est GFR (MDRD) Af Amer 55 (>60 ml/min/1.73 sqM) 11/08/16 04:34 Est GFR (MDRD) Non-Af 45 (>60 ml/min/1.73 sqM) 11/08/16 04:34 Glucose 134 mg/dL (74-99) H 11/08/16 04:34 POC Glucose (mg/dL) 136 mg/dL (75-99) H 11/05/16 06:05 POC Glu Stripper [employer]rent[employer] ID Katharina Colon 11/05/16 06:05 Plasma Lactic Acid Chong 1.1 mmol/L (0.7-2.0) 11/06/16 22:45 Calcium 8.3 mg/dL (8.4-10.2) L 11/08/16 04:34 Phosphorus 4.2 mg/dL (2.5-4.5) 11/08/16 04:34 Magnesium 2.1 mg/dL (1.6-2.3) 11/08/16 04:34 Total Bilirubin 0.9 mg/dL (0.2-1.3) 11/05/16 03:30 AST 13 U/L (17-59) L 11/05/16 03:30 ALT 21 U/L (21-72) 11/05/16 03:30 Alkaline Phosphatase 88 U/L (38-126) 11/05/16 03:30 Total Creatine Kinase 25 U/L (55-170) L 11/05/16 03:30 CK-MB (CK-2) 0.4 ng/mL (0.0-2.4) 11/05/16 03:30 CK-MB (CK-2) Rel Index 1.6 11/05/16 03:30 Troponin I <0.012 ng/mL (0.000-0.034) 11/05/16 03:30 Total Protein 5.7 g/dL (6.3-8.2) L 11/05/16 03:30 Albumin 2.3 g/dL (3.5-5.0) L 11/05/16 03:30 Lipase 47 U/L (23-300) 11/05/16 03:30 Cortisol 7 ug/dL 11/06/16 22:45 Urine Color Yellow 11/05/16 13:17 Urine Appearance Turbid (Clear) 11/05/16 13:17 Urine pH 5.0 (5.0-8.0) 11/05/16 13:17 Ur Specific [place] 1.016 (1.001-1.035) 11/05/16 13:17 Urine Protein 1+ (Negative) H 11/05/16 13:17 Urine Glucose (UA) Negative (Negative) 11/05/16 13:17 Urine Ketones Trace (Negative) H 11/05/16 13:17 Urine Blood Moderate (Negative) H 11/05/16 13:17 Urine Nitrate Negative (Negative) 11/05/16 13:17 Urine Bilirubin Negative (Negative) 11/05/16 13:17 Urine Urobilinogen 2.0 mg/dL (<2.0) 11/05/16 13:17 Ur Leukocyte Esterase Large (Negative) H 11/05/16 13:17 Urine RBC 77 /hpf (0-5) H 11/05/16 13:17 Urine WBC >182 /hpf (0-5) H 11/05/16 13:17 Urine WBC Clumps Many /hpf (None) H 11/05/16 13:17 Ur Squamous Epith Cells 1 /hpf (0-4) 11/05/16 13:17 Urine Bacteria Rare /hpf (None) H 11/05/16 13:17 Hyaline Casts 14 /lpf (0-2) H 11/05/16 13:17 Urine Mucus Occasional /hpf (None) H 11/05/16 13:17 Blood Type O Positive 11/05/16 03:30 Blood Type Recheck No 11/05/16 03:30 Antibody Screen NEGATIVE 11/05/16 03:30 Crossmatch See Detail 11/05/16 03:30 Transfuse Plasma 11/05/16 11/05/16 03:30 Spec Expiration Date 11/08/2016 - 232911/05/16 03:30 Microbiology 11/05/16 16:00 Blood Blood Culture - Preliminary No Growth after 72 hours 11/05/16 13:17 Urine,Catheterized Urine Culture - Final Pseudomonas aeruginosa The susceptibility data from the pseudomonas is considerably different than the recent outpatient culture showed the pseudomonas susceptible to most agents. Assessment and Plan (1) Septic shock Narrative/Plan: 51-year-old male who suffers from obesity presents to hospital with evidence of a 48 hour history of increasing amounts of melena or hematochezia. He was not having much abdominal pain. Both his recent history of hospitalization at the tertiary care center with acute renal failure he was brought into the emergency center. There is evidence of an elevated creatinine but improved from that from his last year visit when he was in acute renal failure. He does have evidence of the significant gastrointestinal bleeding and is being seen by surgery and gastroenterology. His Coumadin coagulopathy is improved with his INR going from 8.2-1.2 with this time. Plans for endoscopic evaluation if possible. The patient was seen in the outpatient setting and on November 03 had a urinalysis and culture performed. UA was markedly abnormal and urine culture shows evidence of a multidrug resistant Enterobacter cloacae. Consequently for antibiotic therapy carbapenem with meropenem is started with the dose that is hopefully acceptable for his current BMI. Some further culture data is becoming available and have pseudomonas as well as Proteus in the urine corrected from a prior Enterobacter. with this antibiotic therapy is altered to ceftazidime from carbapenem. The laboratory at this hospital now shows evidence of the pseudomonas aeruginosa but it is intermediate to ceftazidime and constantly antibiotic therapy is changed to cefepime. Unclear at this time what our plan will be for home antibiotic therapy. Patient seems to have a mild rash Benadryl as added. His atrial fibrillation has improved as his sepsis has been treated. Nephrology has evaluated without plans for renal replacement therapy at this time. Mcknight catheter is in place and urine output is being monitored closely Status: Acute (2) Gram negative sepsis Status: Acute (3) Enterobacter sepsis Status: Acute (4) Gastrointestinal hemorrhage Status: Acute
--- NOTE | 2016-11-08 19:51 | PN ---
Patient is seen for follow-up for acute kidney injury. He was admitted to the hospital with GI bleed and hypotension and urinary tract infection. Urine culture grew Pseudomonas. Patient also had gastrointestinal bleed. He was in the ICU and has been transferred out this evening. Renal function has been improving with serum creatinine down to 1.6 from 2.3 mg/dL on initial admission. Patient has been maintained on IV fluids. He is currently tolerating oral intake. He was also started on hydrocortisone for adrenal insufficiency as a random cortisol was low at 7. On examination today, patient is comfortable. Blood pressure is 105/65, previous blood pressure was 133/80. Examination of the heart S1 and S2. Examination of the lungs: Bilateral breath sounds are heard. Decreased breath sounds in bases. ABDOMEN: Soft, morbidly obese. Examination of lower extremities shows chronic skin changes, chronic wounds, currently no active drainage noted. Morbidly obese. PLUG SORTER exam shows patient has been moving all 4 extremities. Labs show sodium 137, potassium 5.3, chloride ( ), BUN 34, serum creatinine 1.6. Hemoglobin at 10.3 g/dL. ASSESSMENT: 1. Acute kidney injury, acute tubular necrosis, currently nonoliguric and improving. Etiology was hypotension and hypoperfusion. 2. Urinary tract infection with pseudomonas, maintained on cefepime. 3. Gastrointestinal bleed, currently stable status post endoscopy, which showed ulcers in the duodenal bulb and antrum with no active bleeding noted, currently maintained on Protonix. 4. Hypotension with low random cortisol level, currently maintained on hydrocortisone with improved blood pressures. 5. Hyperkalemia fairly stable with no worsening of serum potassium levels. Patient will be maintained on low potassium diet. I will also add oral sodium bicarb since the patient is mildly acidotic. 6. Chronic atrial fibrillation, currently with controlled ventricular response. 7. Coagulopathy related to Coumadin currently improved. PLAN: Decrease IV fluids. Continue to encourage oral intake and repeat labs in a.m. and add sodium bicarb. Maintain patient on low potassium diet.
[2016-11-08] MEDS: HYDROcodone/APAP 10-325MG 1 EACH TAB PO PRN (23:19)
[2016-11-09] MEDS: HYDROCORTISONE SUCCINATE 100 MG/2 ML VIAL IV SCH ×4 (01:07→23:45)
[2016-11-09] MEDS: CEFEPIME 2 GM in SODIUM CHLORIDE 0.9% 50 ML IVPB SCH ×4 (01:07→23:47)
[2016-11-09] MEDS: SODIUM BICARBONATE TAB 650 MG TAB PO SCH ×3 (01:07→20:45)
[2016-11-09] MEDS: PANTOPRAZOLE 40 MG/10 ML VIAL IV SCH ×3 (01:07→20:45)
[2016-11-09] MEDS: SODIUM CHLORIDE 0.9% 1,000 ML IV SCH ×2 (01:09→16:11)
[2016-11-09 06:20] LABS: Glucose,Whole Blood 132 mg/dL (75-99)
[2016-11-09 06:27] LABS: Anisocytosis Slight; Basophils % (A) 0 %; CH 28.4; CHCM 27.9; Eosinophils % (A) 0 %; HCT 35.9 % (39.0-53.0); HDW 3.31; HGB 10.2 gm/dL (13.0-17.5); Hypochromasia Marked; Luc # (Auto) 0.09; Luc % (Auto) 2; Lymphocytes # (A) 0.5 k/uL (1.0-4.8); Lymphocytes % (A) 9 %; MCH 29.1 pg (25.0-35.0); MCHC 28.4 g/dL (31.0-37.0); MCV 102.3 fL (80.0-100.0); Macrocytosis Moderate; Mean Platelet Volume 7.8; Monocytes # (A) 0.2 k/uL (0-1.0); Monocytes % (A) 4 %; Neutrophils # (A) 4.7 k/uL (1.3-7.7); Neutrophils % (A) 86 %; RDW 18.1 % (11.5-15.5); WBC 5.5 k/uL (3.8-10.6)
[2016-11-09 06:34] LABS: INR 1.3 (<1.1); Partial Thromboplastin Time 23.5 sec (22.0-30.0); Prothrombin Time 13.2 sec (9.0-12.0)
[2016-11-09 06:36] LABS: Calcium 8.4 mg/dL (8.4-10.2); Phosphorous 3.6 mg/dL (2.5-4.5); Potassium 5.6 mmol/L (3.5-5.1)
[2016-11-09] MEDS: INSULIN LISPRO (humaLOG) 300 UNIT/3 ML VIAL SQ SCH ×4 (08:05→20:43)
--- NOTE | 2016-11-09 08:47 | P.PN ---
Subjective Patient is seen in follow-up for acute kidney injury. Unclear as to what his baseline renal function is. Renal function has been improving with creatinine down to 1.54 today. Patient presented with GI bleed and underwent endoscopy which revealed a nonbleeding ulcer at the duodenal bulb. He was also hypotensive for which she's currently maintained on hydrocortisone for presumed adrenal insufficiency. Denies any chest pain or shortness of breath. He has a Mcknight catheter in place and is nonoliguric. Appetite is good. No vomiting or diarrhea. Vital signs are stable. General: The patient appeared well nourished and normally developed. HEENT: Head exam is unremarkable. Neck is without jugular venous distension. LUNGS: Lungs are clear to auscultation and percussion. Breath sounds decreased. HEART: Rate and Rhythm are regular. First and second heart sounds normal. No murmurs, rubs or gallops. ABDOMEN: Abdominal exam reveals normal bowel sounds. Non-tender and non- distended. No evidence of peritonitis. EXTREMITITES: Chronic venous stasis changes. Objective - Vital Signs Vital signs: Vital Signs Temp 97.8 F 11/09/16 04:00 Pulse 79 11/09/16 04:00 Resp 18 11/09/16 04:00 BP 111/56 11/09/16 04:00 Pulse Ox 97 11/09/16 04:00 Intake & Output 11/08/16 11/09/16 11/09/16 18:59 06:59 18:59 Intake Total 1850 1200 240 Output Total 635 1501 Balance 1215 -301 240 Weight 289.79 kg 289 kg Intake: IV 1650 Sodium Chloride 0.9% 1, 1650 000 ml @ 150 mls/hr IV . Q6H40M [facility] Rx#:[id number] Intake, IV Titration 200 600 Amount Cefepime 2 gm In Sodium 100 Chloride 0.9% 50 ml @ 100 mls/hr IVPB Q8HR [facility] Rx# :[id number] Sodium Chloride 0.9% 1, 600 000 ml @ 50 mls/hr IV . Q20H [facility] Rx#:[id number] cefTAZidime 2 gm In 100 Sodium Chloride 0.9% 100 ml @ 100 mls/hr IVPB Q8HR [facility] Rx#:[id number] Oral 600 240 Output: Urine 635 1500 Stool 1 Other: Voiding Method Indwelling Catheter Indwelling Catheter # Voids 1 ABP, PAP, CO, CI - Last Documented Arterial Blood Pressure 118/67 - Labs CBC & Chem 7: 11/09/16 05:20 11/09/16 05:20 Labs: Abnormal Lab Results - Last 24 Hours (Table) 11/09/16 11/09/16 11/09/16 Range/Units 05:20 05:20 05:20 RBC 3.50 L (4.30-5.90) m/uL Hgb 10.2 L (13.0-17.5) gm/dL Hct 35.9 L (39.0-53.0) % MCV 102.3 H (80.0-100.0) fL MCHC 28.4 L (31.0-37.0) g/dL RDW 18.1 H (11.5-15.5) % Lymphocytes # 0.5 L (1.0-4.8) k/uL PT 13.2 H (9.0-12.0) sec Potassium 5.6 H (3.5-5.1) mmol/L Chloride 110 H (98-107) mmol/L Carbon Dioxide 20 L (22-30) mmol/L BUN 33 H (9-20) mg/dL Creatinine 1.54 H (0.66-1.25) mg/dL Glucose 140 H (74-99) mg/dL POC Glucose (mg/dL) (75-99) mg/dL 11/09/16 Range/Units 06:16 RBC (4.30-5.90) m/uL Hgb (13.0-17.5) gm/dL Hct (39.0-53.0) % MCV (80.0-100.0) fL MCHC (31.0-37.0) g/dL RDW (11.5-15.5) % Lymphocytes # (1.0-4.8) k/uL PT (9.0-12.0) sec Potassium (3.5-5.1) mmol/L Chloride (98-107) mmol/L Carbon Dioxide (22-30) mmol/L BUN (9-20) mg/dL Creatinine (0.66-1.25) mg/dL Glucose (74-99) mg/dL POC Glucose (mg/dL) 132 H (75-99) mg/dL Microbiology - Last 24 Hours (Table) 11/05/16 16:00 Blood Culture - Preliminary Blood No Growth after 72 hours Assessment and Plan Plan: Assessment: #1. Nonoliguric acute kidney injury secondary to ischemic ATN secondary to hypotension and GI bleed. Improving. Creatinine on 1.54 today. #2. Urinary tract infection with urine culture positive for Pseudomonas. #3. GI bleed status post endoscopy which revealed non-bleeding ulcer. Hemoglobin stable. #4. Hypotension possibly due to adrenal insufficiency with random cortisol level being 7. #5. Hyperkalemia secondary to metabolic acidosis and acute kidney injury. #6. Metabolic acidosis. Plan: Continue with normal saline to be run at 50 mL an hour. Maintain oral sodium bicarbonate supplementation. Avoid nephrotoxic agents and hypotensive episodes. Repeat electrolytes in the morning. I will put him on low potassium diet.
[2016-11-09] MEDS: TRIAMCINOLONE 0.1% CREAM 80 GM TUBE TOPICAL SCH ×2 (09:10→20:46)
[2016-11-09] MEDS: AMIODARONE 200 MG TAB PO SCH ×2 (09:11→20:43)
[2016-11-09] MEDS: METOPROLOL TARTRATE 25 MG TAB PO SCH ×2 (09:11→20:44)
--- NOTE | 2016-11-09 10:25 | P.PN ---
Subjective Principal diagnosis: GI bleed 51-year-old gentleman history of atrial fibrillation admitted with acute upper GI bleed with coffee-ground emesis and maroon-colored bowel movements with Coumadin coagulopathy status post EGD with findings of multiple duodenal bulb antral ulcers without active bleeding. Tolerating regular diet. Denies abdominal pain. Hemoglobin 10.2. No recurrence of coffee-ground emesis and maroon-colored bowel movements last night. Anticoagulation on hold. Pseudomonas urine culture. Objective - Vital Signs Vital signs: Vital Signs Temp 96.9 F L 11/09/16 08:00 Pulse 79 11/09/16 08:00 Resp 18 11/09/16 08:00 BP 117/78 11/09/16 08:00 Pulse Ox 98 11/09/16 08:00 Intake & Output 11/08/16 11/09/16 11/09/16 18:59 06:59 18:59 Intake Total 1850 1200 240 Output Total 635 1501 Balance 1215 -301 240 Weight 289.79 kg 289 kg Intake: IV 1650 Sodium Chloride 0.9% 1, 1650 000 ml @ 150 mls/hr IV . Q6H40M [facility] Rx#:[id number] Intake, IV Titration 200 600 Amount Cefepime 2 gm In Sodium 100 Chloride 0.9% 50 ml @ 100 mls/hr IVPB Q8HR [facility] Rx# :[id number] Sodium Chloride 0.9% 1, 600 000 ml @ 50 mls/hr IV . Q20H [facility] Rx#:[id number] cefTAZidime 2 gm In 100 Sodium Chloride 0.9% 100 ml @ 100 mls/hr IVPB Q8HR [facility] Rx#:[id number] Oral 600 240 Output: Urine 635 1500 Stool 1 Other: Voiding Method Indwelling Catheter Indwelling Catheter Indwelling Catheter # Voids 1 ABP, PAP, CO, CI - Last Documented Arterial Blood Pressure 118/67 - Exam General appearance: The patient is alert, oriented, in no acute distress. HET: Head is normocephalic and atraumatic. Pupils are equal and reactive. Oropharynx is clear without lesions. Neck: Supple without lymphadenopathy. Trachea midline. Heart: S1 S2. Irregular. Lungs: No crackles or wheezes are heard. Abdomen: Soft, nontender, nondistended with bowel sounds. No peritoneal signs. No palpable organomegaly or masses. Mcknight with clear elva urine. Extremities: Bilateral lower extremity edema. Chronic thickened skin changes. Neurological: No focal deficits. Strength and sensation are grossly intact. - Labs CBC & Chem 7: 11/09/16 05:20 11/09/16 05:20 Labs: Abnormal Lab Results - Last 24 Hours (Table) 11/09/16 11/09/16 11/09/16 Range/Units 05:20 05:20 05:20 RBC 3.50 L (4.30-5.90) m/uL Hgb 10.2 L (13.0-17.5) gm/dL Hct 35.9 L (39.0-53.0) % MCV 102.3 H (80.0-100.0) fL MCHC 28.4 L (31.0-37.0) g/dL RDW 18.1 H (11.5-15.5) % Lymphocytes # 0.5 L (1.0-4.8) k/uL PT 13.2 H (9.0-12.0) sec Potassium 5.6 H (3.5-5.1) mmol/L Chloride 110 H (98-107) mmol/L Carbon Dioxide 20 L (22-30) mmol/L BUN 33 H (9-20) mg/dL Creatinine 1.54 H (0.66-1.25) mg/dL Glucose 140 H (74-99) mg/dL POC Glucose (mg/dL) (75-99) mg/dL 11/09/16 Range/Units 06:16 RBC (4.30-5.90) m/uL Hgb (13.0-17.5) gm/dL Hct (39.0-53.0) % MCV (80.0-100.0) fL MCHC (31.0-37.0) g/dL RDW (11.5-15.5) % Lymphocytes # (1.0-4.8) k/uL PT (9.0-12.0) sec Potassium (3.5-5.1) mmol/L Chloride (98-107) mmol/L Carbon Dioxide (22-30) mmol/L BUN (9-20) mg/dL Creatinine (0.66-1.25) mg/dL Glucose (74-99) mg/dL POC Glucose (mg/dL) 132 H (75-99) mg/dL Microbiology - Last 24 Hours (Table) 11/05/16 16:00 Blood Culture - Preliminary Blood No Growth after 72 hours Assessment and Plan Plan: 1. Acute upper GI bleed coffee-ground emesis and maroon-colored bowel movements secondary to multiple duodenal and antral ulcer status post EGD. 2. Acute blood loss anemia. 3. History of chronic atrial fibrillation with Coumadin coagulopathy on admission corrected. Anticoagulation on hold. 4. Morbid obesity BMI 79.9. 5. Pseudomonas UTI. Recommendations: 1. Soft diet. 2. Continue with Protonix 40 mg daily on discharge. 3. Discharge per medicine. 4. Return to GI office 1-2 weeks after discharge. Assessment and plan of care discussed with Dr. Ying.
--- NOTE | 2016-11-09 11:15 | P.PN ---
Subjective Principal diagnosis: Atrial fibrillation This is a 51-year-old morbidly obese gentleman admitted to the hospital with atrial fibrillation and GI bleed. Patient did undergo EGD and was found to have ulcers, he is not a candidate for intermission coordinator anticoagulation at this time. Patient is currently on amiodarone for optimal control of the heart rate. He was also initiated on a beta daniel by Dr. Ying yesterday. He continues to be in atrial fibrillation, heart rate in the 70s to 90s. Blood pressure 116/78. Lab data was reviewed, sodium 138, potassium 5.6, BUN 33, creatinine 1.5. Objective - Vital Signs Vital signs: Vital Signs Temp 96.9 F L 11/09/16 08:00 Pulse 79 11/09/16 08:00 Resp 18 11/09/16 08:00 BP 117/78 11/09/16 08:00 Pulse Ox 98 11/09/16 08:00 Intake & Output 11/08/16 11/09/16 11/09/16 18:59 06:59 18:59 Intake Total 1850 1200 240 Output Total 635 1501 Balance 1215 -301 240 Weight 289.79 kg 289 kg Intake: IV 1650 Sodium Chloride 0.9% 1, 1650 000 ml @ 150 mls/hr IV . Q6H40M [facility] Rx#:[id number] Intake, IV Titration 200 600 Amount Cefepime 2 gm In Sodium 100 Chloride 0.9% 50 ml @ 100 mls/hr IVPB Q8HR [facility] Rx# :[id number] Sodium Chloride 0.9% 1, 600 000 ml @ 50 mls/hr IV . Q20H [facility] Rx#:[id number] cefTAZidime 2 gm In 100 Sodium Chloride 0.9% 100 ml @ 100 mls/hr IVPB Q8HR [facility] Rx#:[id number] Oral 600 240 Output: Urine 635 1500 Stool 1 Other: Voiding Method Indwelling Catheter Indwelling Catheter Indwelling Catheter # Voids 1 ABP, PAP, CO, CI - Last Documented Arterial Blood Pressure 118/67 - Exam PHYSICAL EXAMINATION: HEENT: Head is atraumatic, normocephalic. Pupils equal, round. Neck is supple. There is no elevated jugular venous pressure. HEART EXAMINATION: Heart S1, S2 distant . No murmur or gallop heard. CHEST EXAMINATION: Lungs are clear to auscultation and precussion. No chest wall tenderness is noted on palpation or with deep breathing. ABDOMEN: Soft, obese, nontender. Bowel sounds are heard. No organomegaly noted. EXTREMITIES:[ 1+ peripheral pulses with bilateral edema, diffuse bilateral cellulitis with evidence of chronic venous stasis. NEUROLOGIC[patient is awake, alert and oriented -3] . - Labs CBC & Chem 7: 11/09/16 05:20 11/09/16 05:20 Labs: Abnormal Lab Results - Last 24 Hours (Table) 11/09/16 11/09/16 11/09/16 Range/Units 05:20 05:20 05:20 RBC 3.50 L (4.30-5.90) m/uL Hgb 10.2 L (13.0-17.5) gm/dL Hct 35.9 L (39.0-53.0) % MCV 102.3 H (80.0-100.0) fL MCHC 28.4 L (31.0-37.0) g/dL RDW 18.1 H (11.5-15.5) % Lymphocytes # 0.5 L (1.0-4.8) k/uL PT 13.2 H (9.0-12.0) sec Potassium 5.6 H (3.5-5.1) mmol/L Chloride 110 H (98-107) mmol/L Carbon Dioxide 20 L (22-30) mmol/L BUN 33 H (9-20) mg/dL Creatinine 1.54 H (0.66-1.25) mg/dL Glucose 140 H (74-99) mg/dL POC Glucose (mg/dL) (75-99) mg/dL 11/09/16 Range/Units 06:16 RBC (4.30-5.90) m/uL Hgb (13.0-17.5) gm/dL Hct (39.0-53.0) % MCV (80.0-100.0) fL MCHC (31.0-37.0) g/dL RDW (11.5-15.5) % Lymphocytes # (1.0-4.8) k/uL PT (9.0-12.0) sec Potassium (3.5-5.1) mmol/L Chloride (98-107) mmol/L Carbon Dioxide (22-30) mmol/L BUN (9-20) mg/dL Creatinine (0.66-1.25) mg/dL Glucose (74-99) mg/dL POC Glucose (mg/dL) 132 H (75-99) mg/dL Microbiology - Last 24 Hours (Table) 11/05/16 16:00 Blood Culture - Preliminary Blood No Growth after 72 hours Assessment and Plan (1) Chronic a-fib Status: Acute (2) Anemia Status: Acute (3) Morbid obesity Status: Acute (4) Acute renal failure Status: Acute (5) Cellulitis Status: Acute (6) Gram negative sepsis Status: Acute (7) Enterobacter sepsis Status: Acute Plan: From cardiology's perspective, we'll continue Lopressor 25 mg one tablet by mouth twice a day. Patient is currently on amiodarone 400 mg one tablet by mouth twice a day which we will taper down ultimately. Patient is not a candidate for anticoagulation at this time. DNP note has been reviewed, I agree with a documented findings and plan of care. Patient was seen and examined.
[2016-11-09 11:51] LABS: Glucose,Whole Blood 162 mg/dL (75-99)
--- NOTE | 2016-11-09 14:48 | P.PN ---
Subjective Progress note dated 11/07/2016 This is a 51-year-old male who was admitted on 11/05/2016. The patient was seen yesterday by my nurse practitioner myself. He remains in the ICU. He is awake and alert. I was called last night by the nurse because of low blood pressures. I believe they were treating a number not the patient. He never was tachycardic. He was awake and alert. He was lucid. He had good urine output. Anyway currently the patient's getting O2 at 2 L. His levophed is down to 6 mics per minute. Getting appointment 9 IV at 150 an hour. The patient's random cortisol level was low at 7. We'll attempt to see whether or not hydrocortisone makes a difference in his blood pressure. Other 90s doing reasonably well. Progress note dated 11/08/2016 51-year-old male admitted on 11/05/2016. The patient is doing better. His cortisol level was low. The patient was placed on hydrocortisone 100 mg every 8 hours. His blood pressure has improved. Levophed is currently off. He is getting appointment 9 IV at 1 50 mL an hour. He is getting O2 by nasal cannula 2 L/m. He can be transferred out of the unit today. We consented general medical floor with telemetry. Feeling much much better. Progress note dated 11/09/2016 51-year-old male admitted back on . He has morbid obesity. His cortisol levels were low. He was placed on hydrocortisone 100 mg every 8 hours. We able to wean off his nasal pressure. His blood pressures much improved. He is hoping to go home. Is also on nasal cannula at 2 L/m. He was transferred out of the unit yesterday over to 6 selective. Apparently told said that he go home. Dependent upon lung doctor in his hospitalist. Objective - Vital Signs Vital signs: Vital Signs Temp 96.9 F L 11/09/16 08:00 Pulse 72 11/09/16 12:00 Resp 18 11/09/16 12:00 BP 117/78 11/09/16 08:00 Pulse Ox 98 11/09/16 08:00 Intake & Output 11/08/16 11/09/16 11/09/16 18:59 06:59 18:59 Intake Total 1850 1200 1560 Output Total 635 1501 1 Balance 1215 -301 1559 Weight 289.79 kg 289 kg Intake: IV 1650 600 Sodium Chloride 0.9% 1, 1650 500 000 ml @ 150 mls/hr IV . Q6H40M [facility] Rx#:[id number] cefTAZidime 2 gm In 100 Sodium Chloride 0.9% 100 ml @ 100 mls/hr IVPB Q8HR [facility] Rx#:[id number] Intake, IV Titration 200 600 Amount Cefepime 2 gm In Sodium 100 Chloride 0.9% 50 ml @ 100 mls/hr IVPB Q8HR [facility] Rx# :[id number] Sodium Chloride 0.9% 1, 600 000 ml @ 50 mls/hr IV . Q20H [facility] Rx#:[id number] cefTAZidime 2 gm In 100 Sodium Chloride 0.9% 100 ml @ 100 mls/hr IVPB Q8HR [facility] Rx#:[id number] Oral 600 960 Output: Urine 635 1500 Stool 1 1 Other: Voiding Method Indwelling Catheter Indwelling Catheter Indwelling Catheter # Voids 1 # Bowel Movements 1 ABP, PAP, CO, CI - Last Documented Arterial Blood Pressure 118/67 - Exam No acute distress, oriented 3. HEENT examinations unremarkable. Nasal O2 in place. Mucous membranes are moist. Neck supple. Full range of motion. No adenopathy. Cardiovascular examination reveals distant heart sounds. S1-S2 normal. No S3- S4. No murmur. Lungs are relatively clear breath sounds are equal. Abdomen is obese. Bowel sounds are heard. Extremities reveal evidence of diffuse bilateral cellulitis with chronic venous stasis changes and significant edema. - Labs CBC & Chem 7: 11/09/16 05:20 11/09/16 05:20 Labs: Abnormal Lab Results - Last 24 Hours (Table) 11/09/16 11/09/16 11/09/16 Range/Units 05:20 05:20 05:20 RBC 3.50 L (4.30-5.90) m/uL Hgb 10.2 L (13.0-17.5) gm/dL Hct 35.9 L (39.0-53.0) % MCV 102.3 H (80.0-100.0) fL MCHC 28.4 L (31.0-37.0) g/dL RDW 18.1 H (11.5-15.5) % Lymphocytes # 0.5 L (1.0-4.8) k/uL PT 13.2 H (9.0-12.0) sec Potassium 5.6 H (3.5-5.1) mmol/L Chloride 110 H (98-107) mmol/L Carbon Dioxide 20 L (22-30) mmol/L BUN 33 H (9-20) mg/dL Creatinine 1.54 H (0.66-1.25) mg/dL Glucose 140 H (74-99) mg/dL POC Glucose (mg/dL) (75-99) mg/dL 11/09/16 11/09/16 Range/Units 06:16 11:48 RBC (4.30-5.90) m/uL Hgb (13.0-17.5) gm/dL Hct (39.0-53.0) % MCV (80.0-100.0) fL MCHC (31.0-37.0) g/dL RDW (11.5-15.5) % Lymphocytes # (1.0-4.8) k/uL PT (9.0-12.0) sec Potassium (3.5-5.1) mmol/L Chloride (98-107) mmol/L Carbon Dioxide (22-30) mmol/L BUN (9-20) mg/dL Creatinine (0.66-1.25) mg/dL Glucose (74-99) mg/dL POC Glucose (mg/dL) 132 H 162 H (75-99) mg/dL Microbiology - Last 24 Hours (Table) 11/05/16 16:00 Blood Culture - Preliminary Blood No Growth after 72 hours Assessment and Plan (1) Anemia Status: Acute (2) Atrial fibrillation with RVR Status: Acute (3) Enterobacter sepsis Status: Acute (4) Gram negative sepsis Status: Acute (5) Obesity Status: Acute (6) Septic shock Status: Acute (7) Acute renal failure Status: Acute (8) Cellulitis Status: Acute (9) Acute renal failure Status: Acute (10) Anemia Status: Acute (11) Cellulitis Status: Acute (12) Chronic a-fib Status: Acute (13) Gastrointestinal hemorrhage Status: Acute (14) Gram negative sepsis Status: Acute (15) Morbid obesity Status: Acute (16) Nausea & vomiting Status: Acute Plan: Plan dated 11/07/2016 The patient's levophed will continue to be weaned down. Because his cortisol level was low we'll go ahead and try to see whether the hydrocortisone makes a difference for him. We'll give him 100 mg IV push. I will I'll review the medications labs and x-rays. Additional recommendations suggestions are forthcoming. Once we get him off the pressor, he can move out to the floor. Antibiotics have been adjusted accordingly. We'll continue to follow. Prognosis is guarded. Plan dated 11/08/2016 The patient's vasopressor has been turned off. He seems to have responded to hydrocortisone 100 mg every 8. We'll transfer him out of the unit today. He' ll go to the general medical floor without telemetry. No additional recommendations are made. His prognosis is guarded. Eventually was transferred to transition him to Cortef 20 g in the morning and 10 g in the evening. Plan dated 11/09/2016 The patient seems to be much more stable. We will check the labs and any x- rays that were done. We'll look his medication profile. He might be able to go home in the near future. We'll continue to follow. Prognosis is guarded. Time with Patient: Less than 30
--- NOTE | 2016-11-09 15:07 | PN ---
I am covering for Dr. Raul Johnson. This 51-year-old gentleman was admitted with GI bleed and as well as hypotension secondary to GI bleeding as well as pseudomonas UTI with sepsis, septic shock is being closely monitored at this time. Hemoglobin is found to be 10.2, at this time. The patient has received 2 units of transfusion, the patient on broad-spectrum IV antibiotics. The patient was started on Cefepime by infectious disease. Potassium is 5.6, creatinine is 1.54 at this time. The patient is also seen by multiple consultants, including cardiology and gastroenterology. The patient also had atrial fibrillation. The patient also had coffee ground emesis and maroon colored stools also. The anticoagulation on hold at this time. Multiple duodenal and antral ulcers also seen on EGD. The patient is being closely monitored in telemetry. PAST MEDICAL HISTORY: Reviewed. REVIEW OF SYSTEMS: CARDIOVASCULAR: No angina or palpitations. RESPIRATORY: As mentioned earlier. GI: As mentioned earlier. : No dysuria. CENTRAL NERVOUS SYSTEM: No numbness or weakness. Current medications are reviewed and include: 1. [place] 10 mg q.6h p.r.n. 2. Cordarone 200 mg p.o. b.i.d. 3. Cefepime 2 grams q.8. 4. Benadryl 50 mg q.i.d. 5. Solu-Cortef 1 mg IV q8. 6. Humalog. 7. Lopressor 25 mg p.o. b.i.d. 8. Narcan. 9. Protonix 40 mg IV b.i.d. 10. Kenalog. PHYSICAL EXAMINATION: The patient is alert and oriented times three. Pulse 72, blood pressure 117/72, respirations 16, temperature 96.9, pulse ox 98% on 2 L. HEENT: Conjunctivae normal. Oral mucosa moist. NECK: No jugular venous distention. No carotid bruit. No lymph node enlargement. CARDIOVASCULAR: S1, S2 muffled. No S3, no S4. RESPIRATORY: Breath sounds diminished at the bases. Bilateral scattered rhonchi and crackles. ABDOMEN: Soft, obese, nontender. No mass palpable. LEGS: Bilateral leg edema and chronic edematous changes. CENTRAL NERVOUS SYSTEM: No focal deficits. LABS: WBC 5.3, hemoglobin is 10.2. INR is 1.6, sodium 130, potassium 5.6, glucose 132. ASSESSMENT: 1. Acute upper gastrointestinal bleeding with multiple duodenal and antral ulcers with acute blood loss anemia with hypotension, status post EGD. 2. Urinary tract infection with pseudomonas aeruginosa with severe sepsis septic shock present on admission. 3. Anemia. 4. Increased MCV. 5. Super morbid obesity with BMI is 79.6. 6. Off anticoagulation at this time. 7. Hyperkalemia. 8. Increased creatinine with acute on chronic kidney disease, multifactorial. 9. Possible chronic kidney disease, underlying chronic kidney disease, stage unknown. 10. History of hypertension. 11. History of atrial fibrillation. 12. History of lymphedema cellulitis. 13. History of Enterobacter cloacae urinary tract infection. 14. History of anxiety. 15. Gait dysfunction. 16. NO CODE, NO CPR, NO VENT. RECOMMENDATIONS AND DISCUSSION: This 51-year-old gentleman who presented with multiple complex medical issues, we will monitor the patient closely. Continue the current medications. Repeat labs will be ordered tomorrow otherwise, continue with cautious IV hydration. Other than that, I would also reconcile the medications, continue with antibiotics. Hold antiplatelet agents and anticoagulants. Guarded prognosis. Further recommendations to follow. We will initiate beta blockers gradually.
[2016-11-09] MEDS: METHYLPHENIDATE HCL 10 MG TAB PO SCH ×2 (16:17→17:51)
[2016-11-09 16:58] LABS: Glucose,Whole Blood 143 mg/dL (75-99)
[2016-11-09] MEDS ORDERED: WARFARIN 7.5 MG TAB PO SCH (18:00)
[2016-11-09] MEDS: AMMONIUM LACTATE 12% CREAM 140 GM TUBE TOPICAL SCH (20:44)
[2016-11-09] MEDS: NYSTATIN 100,000 UNIT/GM POWD 15 GM TOPICAL SCH (20:44)
--- NOTE | 2016-11-09 22:05 | P.PN ---
Subjective Principal diagnosis: Gastrointestinal bleed, hypotension 51-year-old male who has a history of superobesity. Was seen in the wound healing Center in the past due to his significant skin condition to his legs and onto his flanks. He has a history of superobesity with a weight greater than 600 pounds. This was from his chronic edema and lack of care. He is now receiving much improved care in his skin is in much better shape. He now presents to the emergency center with concerns to gastrointestinal bleed with bright red blood per rectum. The patient has a very significant recent history or he was in the emergency center he was found evidence of sepsis as well as atrial fibrillation and acute renal failure. He was transported to [facility] for care. He underwent continuous renal replacement therapy and had recovery of his acute renal failure. He was home doing relatively well until the sudden onset of the gastrointestinal bleed. Is noted have evidence of significant Coumadin coagulopathy at this time. The patient was having difficulty passing urine and urology was consulted and they were able to pass a Mcknight catheter with multiple assistance allowing visualization of the genital. Patient's urinalysis is markedly abnormal and there is concerns to sepsis. Outside data is obtained and on October 03 urinalysis and culture were obtained. UA was also markedly abnormal and urine culture has evidence of a multidrug resistant Enterobacter cloacae. Patient underwent EGD , Multiple healing ulcerations were noted. No active bleeding was noted. Nursing staff relates that the melanotic stool resolved. Urine output has been adequate. Feeling better today. out of the ICU. Further culture data is available Objective - Vital Signs Vital signs: Vital Signs Temp 97.7 F 11/09/16 20:00 Pulse 95 11/09/16 20:00 Resp 18 11/09/16 20:00 BP 141/82 11/09/16 20:00 Pulse Ox 100 11/09/16 20:00 Intake & Output 11/09/16 11/09/16 11/10/16 06:59 18:59 06:59 Intake Total 1200 1800 Output Total 1501 501 Balance -301 1299 Weight 289 kg Intake: IV 600 Sodium Chloride 0.9% 1, 500 000 ml @ 150 mls/hr IV . Q6H40M [facility] Rx#:[id number] cefTAZidime 2 gm In 100 Sodium Chloride 0.9% 100 ml @ 100 mls/hr IVPB Q8HR [facility] Rx#:[id number] Intake, IV Titration 600 Amount Sodium Chloride 0.9% 1, 600 000 ml @ 50 mls/hr IV . Q20H [facility] Rx#:[id number] Oral 600 1200 Output: Urine 1500 500 Stool 1 1 Other: Voiding Method Indwelling Catheter Indwelling Catheter Indwelling Catheter # Voids 1 # Bowel Movements 1 ABP, PAP, CO, CI - Last Documented Arterial Blood Pressure 118/67 - Exam 51-year-old male with superobesity seems comfortable HEENT: Anicteric conjunctiva are pink and moist nasal mucosa grossly intact without significant lesions, there is no thrush. Poor dentition Neck: The neck is supple without significant lymphadenopathy or thyromegaly. Lungs: Symmetrical air entry. Few basilar crackles. No severe wheezing. No dullness or egophony Heart: Irregular irregular. Audible S1-S2. 2/6 systolic murmur left sternal border. No heave or thrill. Abdomen: Obese with positive bowel sounds. Organs cannot be palpated through the immense abdominal wall Extremities: The upper extremities have excellent pulses they are symmetric, no significant petechiae or telangiectasia. No splinter hemorrhages were noted. The lower extremities show evidence of the significant edema with his fluid resuscitation. He with that he's developed some weeping from the significant edema. It is fortunately not very tender. No large open areas of ulceration are seen. He does have some chronic skin changes that are old with a thickened dyshidrotic skin. Neuro: Awake alert oriented to person place and time. There are no acute new gross focal sensory motor deficits. - Labs CBC & Chem 7: 11/09/16 05:20 11/09/16 05:20 Labs: Abnormal Lab Results - Last 24 Hours (Table) 11/09/16 11/09/16 11/09/16 Range/Units 05:20 05:20 05:20 RBC 3.50 L (4.30-5.90) m/uL Hgb 10.2 L (13.0-17.5) gm/dL Hct 35.9 L (39.0-53.0) % MCV 102.3 H (80.0-100.0) fL MCHC 28.4 L (31.0-37.0) g/dL RDW 18.1 H (11.5-15.5) % Lymphocytes # 0.5 L (1.0-4.8) k/uL PT 13.2 H (9.0-12.0) sec Potassium 5.6 H (3.5-5.1) mmol/L Chloride 110 H (98-107) mmol/L Carbon Dioxide 20 L (22-30) mmol/L BUN 33 H (9-20) mg/dL Creatinine 1.54 H (0.66-1.25) mg/dL Glucose 140 H (74-99) mg/dL POC Glucose (mg/dL) (75-99) mg/dL 11/09/16 11/09/16 11/09/16 Range/Units 06:16 11:48 16:35 RBC (4.30-5.90) m/uL Hgb (13.0-17.5) gm/dL Hct (39.0-53.0) % MCV (80.0-100.0) fL MCHC (31.0-37.0) g/dL RDW (11.5-15.5) % Lymphocytes # (1.0-4.8) k/uL PT (9.0-12.0) sec Potassium (3.5-5.1) mmol/L Chloride (98-107) mmol/L Carbon Dioxide (22-30) mmol/L BUN (9-20) mg/dL Creatinine (0.66-1.25) mg/dL Glucose (74-99) mg/dL POC Glucose (mg/dL) 132 H 162 H 143 H (75-99) mg/dL Microbiology - Last 24 Hours (Table) 11/05/16 16:00 Blood Culture - Preliminary Blood No Growth after 96 hours Laboratory Results WBC 5.5 k/uL (3.8-10.6) 11/09/16 05:20 RBC 3.50 m/uL (4.30-5.90) L 11/09/16 05:20 Hgb 10.2 gm/dL (13.0-17.5) L 11/09/16 05:20 Hct 35.9 % (39.0-53.0) L 11/09/16 05:20 MCV 102.3 fL (80.0-100.0) H 11/09/16 05:20 MCH 29.1 pg (25.0-35.0) 11/09/16 05:20 MCHC 28.4 g/dL (31.0-37.0) L 11/09/16 05:20 RDW 18.1 % (11.5-15.5) H 11/09/16 05:20 Plt Count 227 k/uL (150-450) 11/09/16 05:20 Neutrophils % 86 % 11/09/16 05:20 Lymphocytes % 9 % 11/09/16 05:20 Monocytes % 4 % 11/09/16 05:20 Eosinophils % 0 % 11/09/16 05:20 Basophils % 0 % 11/09/16 05:20 Neutrophils # 4.7 k/uL (1.3-7.7) 11/09/16 05:20 Lymphocytes # 0.5 k/uL (1.0-4.8) L 11/09/16 05:20 Monocytes # 0.2 k/uL (0-1.0) 11/09/16 05:20 Eosinophils # 0.0 k/uL (0-0.7) 11/09/16 05:20 Basophils # 0.0 k/uL (0-0.2) 11/09/16 05:20 Hypochromasia Marked 11/09/16 05:20 Poikilocytosis Slight 11/08/16 04:34 Anisocytosis Slight 11/09/16 05:20 Macrocytosis Moderate 11/09/16 05:20 PT 13.2 sec (9.0-12.0) H 11/09/16 05:20 INR 1.3 (<1.1) 11/09/16 05:20 APTT 23.5 sec (22.0-30.0) 11/09/16 05:20 Sample Site lrad 11/05/16 08:39 ABG pH 7.34 (7.35-7.45) L 11/05/16 08:39 ABG pCO2 38 mmHg (35-45) 11/05/16 08:39 ABG pO2 75 mmHg (83-108) L 11/05/16 08:39 ABG HCO3 20 mmol/L (21-25) L 11/05/16 08:39 ABG Total CO2 21 mmol/L (19-24) 11/05/16 08:39 ABG O2 Saturation 94.0 % (94-97) 11/05/16 08:39 ABG Base Excess -4.9 mmol/L 11/05/16 08:39 FiO2 21 % 11/05/16 08:39 Sodium 138 mmol/L (137-145) 11/09/16 05:20 Potassium 5.6 mmol/L (3.5-5.1) H 11/09/16 05:20 Chloride 110 mmol/L (98-107) H 11/09/16 05:20 Carbon Dioxide 20 mmol/L (22-30) L 11/09/16 05:20 Anion Gap 8 mmol/L 11/09/16 05:20 BUN 33 mg/dL (9-20) H 11/09/16 05:20 Creatinine 1.54 mg/dL (0.66-1.25) H 11/09/16 05:20 Est GFR (MDRD) Af Amer 58 (>60 ml/min/1.73 sqM) 11/09/16 05:20 Est GFR (MDRD) Non-Af 47 (>60 ml/min/1.73 sqM) 11/09/16 05:20 Glucose 140 mg/dL (74-99) H 11/09/16 05:20 POC Glucose (mg/dL) 143 mg/dL (75-99) H 11/09/16 16:35 POC Glu Full Time ID Yesenia Tate 11/09/16 16:35 Plasma Lactic Acid Chong 1.1 mmol/L (0.7-2.0) 11/06/16 22:45 Calcium 8.4 mg/dL (8.4-10.2) 11/09/16 05:20 Phosphorus 3.6 mg/dL (2.5-4.5) 11/09/16 05:20 Magnesium 2.0 mg/dL (1.6-2.3) 11/09/16 05:20 Total Bilirubin 0.9 mg/dL (0.2-1.3) 11/05/16 03:30 AST 13 U/L (17-59) L 11/05/16 03:30 ALT 21 U/L (21-72) 11/05/16 03:30 Alkaline Phosphatase 88 U/L (38-126) 11/05/16 03:30 Total Creatine Kinase 25 U/L (55-170) L 11/05/16 03:30 CK-MB (CK-2) 0.4 ng/mL (0.0-2.4) 11/05/16 03:30 CK-MB (CK-2) Rel Index 1.6 11/05/16 03:30 Troponin I <0.012 ng/mL (0.000-0.034) 11/05/16 03:30 Total Protein 5.7 g/dL (6.3-8.2) L 11/05/16 03:30 Albumin 2.3 g/dL (3.5-5.0) L 11/05/16 03:30 Lipase 47 U/L (23-300) 11/05/16 03:30 Cortisol 7 ug/dL 11/06/16 22:45 Urine Color Yellow 11/05/16 13:17 Urine Appearance Turbid (Clear) 11/05/16 13:17 Urine pH 5.0 (5.0-8.0) 11/05/16 13:17 Ur Specific Seney 1.016 (1.001-1.035) 11/05/16 13:17 Urine Protein 1+ (Negative) H 11/05/16 13:17 Urine Glucose (UA) Negative (Negative) 11/05/16 13:17 Urine Ketones Trace (Negative) H 11/05/16 13:17 Urine Blood Moderate (Negative) H 11/05/16 13:17 Urine Nitrate Negative (Negative) 11/05/16 13:17 Urine Bilirubin Negative (Negative) 11/05/16 13:17 Urine Urobilinogen 2.0 mg/dL (<2.0) 11/05/16 13:17 Ur Leukocyte Esterase Large (Negative) H 11/05/16 13:17 Urine RBC 77 /hpf (0-5) H 11/05/16 13:17 Urine WBC >182 /hpf (0-5) H 11/05/16 13:17 Urine WBC Clumps Many /hpf (None) H 11/05/16 13:17 Ur Squamous Epith Cells 1 /hpf (0-4) 11/05/16 13:17 Urine Bacteria Rare /hpf (None) H 11/05/16 13:17 Hyaline Casts 14 /lpf (0-2) H 11/05/16 13:17 Urine Mucus Occasional /hpf (None) H 11/05/16 13:17 Blood Type O Positive 11/05/16 03:30 Blood Type Recheck No 11/05/16 03:30 Antibody Screen NEGATIVE 11/05/16 03:30 Crossmatch See Detail 11/05/16 03:30 Transfuse Plasma 11/05/16 11/05/16 03:30 Spec Expiration Date 11/08/2016 - 2330 11/05/16 03:30 Microbiology 11/05/16 16:00 Blood Blood Culture - Preliminary No Growth after 96 hours 11/05/16 13:17 Urine,Catheterized Urine Culture - Final Pseudomonas aeruginosa Assessment and Plan (1) Septic shock Narrative/Plan: 51-year-old male who suffers from obesity presents to hospital with evidence of a 48 hour history of increasing amounts of melena or hematochezia. He was not having much abdominal pain. Both his recent history of hospitalization at the tertiary care center with acute renal failure he was brought into the emergency center. There is evidence of an elevated creatinine but improved from that from his last year visit when he was in acute renal failure. He does have evidence of the significant gastrointestinal bleeding and is being seen by surgery and gastroenterology. His Coumadin coagulopathy is improved with his INR going from 8.2-1.2 with this time. Plans for endoscopic evaluation if possible. The patient was seen in the outpatient setting and on November 03 had a urinalysis and culture performed. UA was markedly abnormal and urine culture shows evidence of a multidrug resistant Enterobacter cloacae. Consequently for antibiotic therapy carbapenem with meropenem is started with the dose that is hopefully acceptable for his current BMI. Some further culture data is becoming available and have pseudomonas as well as Proteus in the urine corrected from a prior Enterobacter. with this antibiotic therapy is altered to ceftazidime from carbapenem. The laboratory at this hospital now shows evidence of the pseudomonas aeruginosa but it is intermediate to ceftazidime and constantly antibiotic therapy is changed to cefepime. Unclear at this time what our plan will be for home antibiotic therapy. Patient seems to have a mild rash Benadryl as added. His atrial fibrillation has improved as his sepsis has been treated. Nephrology has evaluated without plans for renal replacement therapy. Mcknight catheter is in place and urine output is being monitored closely Status: Acute (2) Gram negative sepsis Status: Acute (3) Enterobacter sepsis Status: Acute (4) Gastrointestinal hemorrhage Status: Acute
[2016-11-09 22:23] LABS: Glucose,Whole Blood 156 mg/dL (75-99)
[2016-11-09] MEDS: HYDROcodone/APAP 10-325MG 1 EACH TAB PO PRN (23:45)
[2016-11-10 03:07] VITALS: PULSE 74; TEMP 97.7
[2016-11-10 06:12] LABS: Anisocytosis Slight; Basophils % (A) 0 %; CH 28.8; CHCM 28.7; Eosinophils % (A) 0 %; HCT 34.6 % (39.0-53.0); HDW 3.33; HGB 9.8 gm/dL (13.0-17.5); Hypochromasia Marked; Luc # (Auto) 0.07; Luc % (Auto) 2; Lymphocytes # (A) 0.5 k/uL (1.0-4.8); Lymphocytes % (A) 13 %; MCH 28.7 pg (25.0-35.0); MCHC 28.5 g/dL (31.0-37.0); MCV 100.8 fL (80.0-100.0); Macrocytosis Moderate; Mean Platelet Volume 7.7; Monocytes # (A) 0.2 k/uL (0-1.0); Monocytes % (A) 4 %; Neutrophils # (A) 3.4 k/uL (1.3-7.7); Neutrophils % (A) 81 %; RBC 3.43 m/uL (4.30-5.90); RDW 18.1 % (11.5-15.5); WBC 4.2 k/uL (3.8-10.6); WBC (Perox) 4.45
[2016-11-10 06:22] LABS: INR 1.3 (<1.1); Partial Thromboplastin Time 22.5 sec (22.0-30.0)
[2016-11-10 06:25] LABS: Calcium 8.5 mg/dL (8.4-10.2); Phosphorous 3.4 mg/dL (2.5-4.5); Potassium 5.7 mmol/L (3.5-5.1)
[2016-11-10 06:26] LABS: Glucose,Whole Blood 140 mg/dL (75-99)
[2016-11-10] MEDS: METHYLPHENIDATE HCL 10 MG TAB PO SCH ×2 (06:30→14:42)
[2016-11-10] MEDS: INSULIN LISPRO (humaLOG) 300 UNIT/3 ML VIAL SQ SCH ×3 (06:30→17:36)
[2016-11-10] MEDS ORDERED: SODIUM POLYSTYRENE SULFONATE 15 GM/60 ML BOTTLE PO STA ×2 (07:51→10:32)
[2016-11-10] MEDS ORDERED: INSULIN REGULAR 100 UNIT/ML VIAL IV ONE (07:51)
[2016-11-10] MEDS ORDERED: DEXTROSE 50%-WATER 50 ML SYRINGE IVP STA (07:51)
[2016-11-10] MEDS ORDERED: SODIUM BICARB 8.4% 50 ML SYR (1 MEQ/ML) IV STA (07:51)
--- NOTE | 2016-11-10 07:51 | P.PN ---
Subjective Patient is seen in follow-up for acute kidney injury. Unclear as to what his baseline renal function is. Renal function was gradually improving but is little worse today with creatinine at 1.69. Patient presented with GI bleed and underwent endoscopy which revealed a nonbleeding ulcer at the duodenal bulb. He was also hypotensive for which he's currently maintained on hydrocortisone for presumed adrenal insufficiency. Denies any chest pain or shortness of breath. He is nonoliguric. Appetite is good. No vomiting or diarrhea. Potassium has been running slightly on the higher end and is 5.7 today. Vital signs are stable. General: The patient appeared well nourished and normally developed. HEENT: Head exam is unremarkable. Neck is without jugular venous distension. LUNGS: Lungs are clear to auscultation and percussion. Breath sounds decreased. HEART: Rate and Rhythm are regular. First and second heart sounds normal. No murmurs, rubs or gallops. ABDOMEN: Abdominal exam reveals normal bowel sounds. Non-tender and non- distended. No evidence of peritonitis. EXTREMITITES: Chronic venous stasis changes. Objective - Vital Signs Vital signs: Vital Signs Temp 97.7 F 11/10/16 03:06 Pulse 74 11/10/16 03:07 Resp 16 11/10/16 03:07 BP 114/74 11/10/16 03:06 Pulse Ox 94 L 11/10/16 03:06 Intake & Output 11/09/16 11/10/16 11/10/16 18:59 06:59 18:59 Intake Total 1800 600 Output Total 501 700 Balance 1299 -100 Intake: IV 600 550 Sodium Chloride 0.9% 1, 500 550 000 ml @ 150 mls/hr IV . Q6H40M [facility] Rx#:[id number] cefTAZidime 2 gm In 100 Sodium Chloride 0.9% 100 ml @ 100 mls/hr IVPB Q8HR [facility] Rx#:[id number] Intake, IV Titration 50 Amount Cefepime 2 gm In Sodium 50 Chloride 0.9% 50 ml @ 100 mls/hr IVPB Q8HR [facility] Rx# :[id number] Oral 1200 Output: Urine 500 700 Stool 1 Other: Voiding Method Indwelling Catheter Indwelling Catheter # Bowel Movements 1 ABP, PAP, CO, CI - Last Documented Arterial Blood Pressure 118/67 - Labs CBC & Chem 7: 11/10/16 05:18 02/17/17 05:18 Labs: Abnormal Lab Results - Last 24 Hours (Table) 11/09/16 11/09/16 11/09/16 Range/Units 11:48 16:35 20:20 RBC (4.30-5.90) m/uL Hgb (13.0-17.5) gm/dL Hct (39.0-53.0) % MCV (80.0-100.0) fL MCHC (31.0-37.0) g/dL RDW (11.5-15.5) % Lymphocytes # (1.0-4.8) k/uL PT (9.0-12.0) sec Potassium (3.5-5.1) mmol/L Chloride (98-107) mmol/L Carbon Dioxide (22-30) mmol/L BUN (9-20) mg/dL Creatinine (0.66-1.25) mg/dL Glucose (74-99) mg/dL POC Glucose (mg/dL) 162 H 143 H 156 H (75-99) mg/dL 11/10/16 11/10/16 11/10/16 Range/Units 05:18 05:18 05:18 RBC 3.43 L (4.30-5.90) m/uL Hgb 9.8 L (13.0-17.5) gm/dL Hct 34.6 L (39.0-53.0) % MCV 100.8 H (80.0-100.0) fL MCHC 28.5 L (31.0-37.0) g/dL RDW 18.1 H (11.5-15.5) % Lymphocytes # 0.5 L (1.0-4.8) k/uL PT 13.0 H (9.0-12.0) sec Potassium 5.7 H (3.5-5.1) mmol/L Chloride 110 H (98-107) mmol/L Carbon Dioxide 21 L (22-30) mmol/L BUN 35 H (9-20) mg/dL Creatinine 1.69 H (0.66-1.25) mg/dL Glucose 150 H (74-99) mg/dL POC Glucose (mg/dL) (75-99) mg/dL 11/10/16 Range/Units 06:24 RBC (4.30-5.90) m/uL Hgb (13.0-17.5) gm/dL Hct (39.0-53.0) % MCV (80.0-100.0) fL MCHC (31.0-37.0) g/dL RDW (11.5-15.5) % Lymphocytes # (1.0-4.8) k/uL PT (9.0-12.0) sec Potassium (3.5-5.1) mmol/L Chloride (98-107) mmol/L Carbon Dioxide (22-30) mmol/L BUN (9-20) mg/dL Creatinine (0.66-1.25) mg/dL Glucose (74-99) mg/dL POC Glucose (mg/dL) 140 H (75-99) mg/dL Microbiology - Last 24 Hours (Table) 11/05/16 16:00 Blood Culture - Preliminary Blood No Growth after 96 hours Assessment and Plan Plan: Assessment: #1. Nonoliguric acute kidney injury secondary to ischemic ATN secondary to hypotension and GI bleed. Creatinine slightly worse compared to yesterday at 1.69. #2. Urinary tract infection with urine culture positive for Pseudomonas. #3. GI bleed status post endoscopy which revealed non-bleeding ulcer. Hemoglobin stable. #4. Hypotension possibly due to adrenal insufficiency with random cortisol level being 7. #5. Hyperkalemia secondary to metabolic acidosis and acute kidney injury. #6. Metabolic acidosis. Plan: Hep-Lock IV fluids. His appetite is good. Maintain oral sodium bicarbonate supplementation. Avoid nephrotoxic agents and hypotensive episodes. Repeat electrolytes in the morning. Maintain low potassium diet. 30 g of Kayexalate once along with 10 units of IV insulin and an amp of D50. Expect further improvement in potassium with hydrocortisone.
--- NOTE | 2016-11-10 08:25 | P.PN ---
Subjective Principal diagnosis: GI bleed, atrial fibrillation His is a 51-year-old morbidly obese gentleman with a known history of atrial fibrillation on Coumadin. Presented to the hospital with GI bleed and atrial fibrillation. Patient underwent EGD and was found have ulcers, he is not a candidate for long-term anticoagulation at this time. Patient is currently on amiodarone for optimal control of heart rate as well as metoprolol. He continues to be in atrial fibrillation with controlled ventricular response. Laboratory values this morning showed a hemoglobin of 9.8, BUN 35, creatinine 1.69 and potassium of 5.7. Nephrology is on consult. Upon examination this morning, patient is resting comfortably in bed. He denies complaints of shortness of breath, chest discomfort, palpitations, dizziness, lightheadedness or syncope. Objective - Vital Signs Vital signs: Vital Signs Temp 97.7 F 11/10/16 03:06 Pulse 74 11/10/16 03:07 Resp 16 11/10/16 03:07 BP 114/74 11/10/16 03:06 Pulse Ox 94 L 11/10/16 03:06 Intake & Output 11/09/16 11/10/16 11/10/16 18:59 06:59 18:59 Intake Total 1800 600 Output Total 501 700 Balance 1299 -100 Intake: IV 600 550 Sodium Chloride 0.9% 1, 500 550 000 ml @ 150 mls/hr IV . Q6H40M [facility] Rx#:[id number] cefTAZidime 2 gm In 100 Sodium Chloride 0.9% 100 ml @ 100 mls/hr IVPB Q8HR [facility] Rx#:[id number] Intake, IV Titration 50 Amount Cefepime 2 gm In Sodium 50 Chloride 0.9% 50 ml @ 100 mls/hr IVPB Q8HR [facility] Rx# :[id number] Oral 1200 Output: Urine 500 700 Stool 1 Other: Voiding Method Indwelling Catheter Indwelling Catheter # Bowel Movements 1 ABP, PAP, CO, CI - Last Documented Arterial Blood Pressure 118/67 - Exam PHYSICAL EXAMINATION: HEENT: Head is atraumatic, normocephalic. Pupils equal, round. Neck is supple. There is no elevated jugular venous pressure. HEART EXAMINATION: Heart sounds regular, S1 and S2 distant. No murmur or gallop heard. CHEST EXAMINATION: Lungs are clear to auscultation and precussion. No chest wall tenderness is noted on palpation or with deep breathing. ABDOMEN: Soft, obese, nontender. Bowel sounds are heard. No organomegaly noted. EXTREMITIES: 1+ peripheral pulses with evidence of bilateral peripheral edema and bilateral cellulitis with evidence of chronic venous stasis. NEUROLOGIC patient is awake, alert and oriented x3. . - Labs CBC & Chem 7: 11/10/16 05:18 11/10/16 05:18 Labs: Abnormal Lab Results - Last 24 Hours (Table) 11/09/16 11/09/16 11/09/16 Range/Units 11:48 16:35 20:20 RBC (4.30-5.90) m/uL Hgb (13.0-17.5) gm/dL Hct (39.0-53.0) % MCV (80.0-100.0) fL MCHC (31.0-37.0) g/dL RDW (11.5-15.5) % Lymphocytes # (1.0-4.8) k/uL PT (9.0-12.0) sec Potassium (3.5-5.1) mmol/L Chloride (98-107) mmol/L Carbon Dioxide (22-30) mmol/L BUN (9-20) mg/dL Creatinine (0.66-1.25) mg/dL Glucose (74-99) mg/dL POC Glucose (mg/dL) 162 H 143 H 156 H (75-99) mg/dL 11/10/16 11/10/16 11/10/16 Range/Units 05:18 05:18 05:18 RBC 3.43 L (4.30-5.90) m/uL Hgb 9.8 L (13.0-17.5) gm/dL Hct 34.6 L (39.0-53.0) % MCV 100.8 H (80.0-100.0) fL MCHC 28.5 L (31.0-37.0) g/dL RDW 18.1 H (11.5-15.5) % Lymphocytes # 0.5 L (1.0-4.8) k/uL PT 13.0 H (9.0-12.0) sec Potassium 5.7 H (3.5-5.1) mmol/L Chloride 110 H (98-107) mmol/L Carbon Dioxide 21 L (22-30) mmol/L BUN 35 H (9-20) mg/dL Creatinine 1.69 H (0.66-1.25) mg/dL Glucose 150 H (74-99) mg/dL POC Glucose (mg/dL) (75-99) mg/dL 11/10/16 Range/Units 06:24 RBC (4.30-5.90) m/uL Hgb (13.0-17.5) gm/dL Hct (39.0-53.0) % MCV (80.0-100.0) fL MCHC (31.0-37.0) g/dL RDW (11.5-15.5) % Lymphocytes # (1.0-4.8) k/uL PT (9.0-12.0) sec Potassium (3.5-5.1) mmol/L Chloride (98-107) mmol/L Carbon Dioxide (22-30) mmol/L BUN (9-20) mg/dL Creatinine (0.66-1.25) mg/dL Glucose (74-99) mg/dL POC Glucose (mg/dL) 140 H (75-99) mg/dL Microbiology - Last 24 Hours (Table) 11/05/16 16:00 Blood Culture - Preliminary Blood No Growth after 96 hours Assessment and Plan Plan: Assessment and plan #1 chronic atrial fibrillation #2 anemia #3 GI bleed #4 morbid obesity #5 acute renal failure #6 cellulitis #7 sepsis, gram-negative and Enterobacter From cardiology's perspective, medications were reviewed and we will continue Lopressor 25 mg by mouth twice a day as well as amiodarone 400 mg by mouth twice a day which we will ultimately taper. The patient is clearly not a candidate for anticoagulation at this time. We'll continue to follow the patient on an as-needed basis and please do not hesitate to call with any questions. The above dictated assessment and findings were discussed with signing physician. The impression and plan of care have been directed as dictated. Neelam Kirk, Nurse Practitioner, acting as scribe for signing physician.
[2016-11-10] MEDS ORDERED: TAMSULOSIN 0.4 MG CAP.ER.24H PO SCH (09:00)
[2016-11-10] MEDS ORDERED: LORATADINE 10 MG TAB PO SCH (09:00)
[2016-11-10] MEDS: HYDROCORTISONE SUCCINATE 100 MG/2 ML VIAL IV SCH ×2 (09:37→17:36)
[2016-11-10] MEDS: PANTOPRAZOLE 40 MG/10 ML VIAL IV SCH (09:37)
[2016-11-10] MEDS: SODIUM BICARBONATE TAB 650 MG TAB PO SCH (09:37)
[2016-11-10] MEDS: AMIODARONE 200 MG TAB PO SCH (09:37)
[2016-11-10] MEDS: NYSTATIN 100,000 UNIT/GM POWD 15 GM TOPICAL SCH (09:37)
[2016-11-10] MEDS: CEFEPIME 2 GM in SODIUM CHLORIDE 0.9% 50 ML IVPB SCH ×2 (09:42→17:36)
[2016-11-10] MEDS: TRIAMCINOLONE 0.1% CREAM 80 GM TUBE TOPICAL SCH (09:42)
[2016-11-10] MEDS: AMMONIUM LACTATE 12% CREAM 140 GM TUBE TOPICAL SCH (09:42)
[2016-11-10 10:40] VITALS: RESP 18
[2016-11-10] MEDS: METOPROLOL TARTRATE 25 MG TAB PO SCH (10:47)
[2016-11-10] MEDS: SODIUM CHLORIDE 0.9% 1,000 ML IV SCH (11:27)
[2016-11-10 11:44] LABS: Glucose,Whole Blood 134 mg/dL (75-99)
[2016-11-10] MEDS ORDERED: NEOMYCIN-BACITRACIN-POLY OINT 14 GM TUBE TOPICAL SCH (12:45)
--- NOTE | 2016-11-10 14:28 | P.PN ---
Subjective Principal diagnosis: Gastrointestinal bleed, hypotension 51-year-old male who has a history of superobesity. Was seen in the wound healing Center in the past due to his significant skin condition to his legs and onto his flanks. He has a history of superobesity with a weight greater than 600 pounds. This was from his chronic edema and lack of care. He is now receiving much improved care in his skin is in much better shape. He now presents to the emergency center with concerns to gastrointestinal bleed with bright red blood per rectum. The patient has a very significant recent history or he was in the emergency center he was found evidence of sepsis as well as atrial fibrillation and acute renal failure. He was transported to [facility] for care. He underwent continuous renal replacement therapy and had recovery of his acute renal failure. He was home doing relatively well until the sudden onset of the gastrointestinal bleed. Is noted have evidence of significant Coumadin coagulopathy at this time. The patient was having difficulty passing urine and urology was consulted and they were able to pass a Mcknight catheter with multiple assistance allowing visualization of the genital. Patient's urinalysis is markedly abnormal and there was sepsis. Outside data is obtained and on October 03 urinalysis and culture were obtained. UA was also markedly abnormal and urine culture has evidence of a multidrug resistant Enterobacter cloacae. Patient underwent EGD , Multiple healing ulcerations were noted. No active bleeding was noted. Nursing staff relates that the melanotic stool resolved. Urine output has been adequate. Feeling better today. Further culture data is available Looks forward to going home but had a mild elevated potassium which is being treated Objective - Vital Signs Vital signs: Vital Signs Temp 97.7 F 11/10/16 08:00 Pulse 74 11/10/16 11:55 Resp 18 11/10/16 11:55 BP 124/61 11/10/16 11:55 Pulse Ox 92 L 11/10/16 11:55 Intake & Output 11/09/16 11/10/16 11/10/16 18:59 06:59 18:59 Intake Total 1800 600 400 Output Total 501 700 2 Balance 1299 -100 398 Intake: IV 600 550 400 Sodium Chloride 0.9% 1, 500 550 400 000 ml @ 150 mls/hr IV . Q6H40M [facility] Rx#:[id number] cefTAZidime 2 gm In 100 Sodium Chloride 0.9% 100 ml @ 100 mls/hr IVPB Q8HR [facility] Rx#:[id number] Intake, IV Titration 50 Amount Cefepime 2 gm In Sodium 50 Chloride 0.9% 50 ml @ 100 mls/hr IVPB Q8HR [facility] Rx# :[id number] Oral 1200 Output: Urine 500 700 Stool 1 2 Other: Voiding Method Indwelling Catheter Indwelling Catheter Indwelling Catheter # Bowel Movements 1 ABP, PAP, CO, CI - Last Documented Arterial Blood Pressure 118/67 - Exam 51-year-old male with superobesity seems comfortable HEENT: Anicteric conjunctiva are pink and moist nasal mucosa grossly intact without significant lesions, there is no thrush. Poor dentition Neck: The neck is supple without significant lymphadenopathy or thyromegaly. Lungs: Symmetrical air entry. Few basilar crackles. No severe wheezing. No dullness or egophony Heart: Irregular irregular. Audible S1-S2. 2/6 systolic murmur left sternal border. No heave or thrill. Abdomen: Obese with positive bowel sounds. Organs cannot be palpated through the immense abdominal wall Extremities: The upper extremities have excellent pulses they are symmetric, no significant petechiae or telangiectasia. No splinter hemorrhages were noted. The lower extremities show evidence of the significant edema with his fluid resuscitation. He with that he's developed some weeping from the significant edema. It is fortunately not very tender. No large open areas of ulceration are seen. He does have some chronic skin changes that are old with a thickened dyshidrotic skin. The site of the great toe where the nail was lost is without bleeding. No erythema. Minimally tender. Neuro: Awake alert oriented to person place and time. There are no acute new gross focal sensory motor deficits. - Labs CBC & Chem 7: 11/10/16 05:18 11/10/16 05:18 Labs: Abnormal Lab Results - Last 24 Hours (Table) 11/09/16 11/09/16 11/10/16 Range/Units 16:35 20:20 05:18 RBC 3.43 L (4.30-5.90) m/uL Hgb 9.8 L (13.0-17.5) gm/dL Hct 34.6 L (39.0-53.0) % MCV 100.8 H (80.0-100.0) fL MCHC 28.5 L (31.0-37.0) g/dL RDW 18.1 H (11.5-15.5) % Lymphocytes # 0.5 L (1.0-4.8) k/uL PT (9.0-12.0) sec Potassium (3.5-5.1) mmol/L Chloride (98-107) mmol/L Carbon Dioxide (22-30) mmol/L BUN (9-20) mg/dL Creatinine (0.66-1.25) mg/dL Glucose (74-99) mg/dL POC Glucose (mg/dL) 143 H 156 H (75-99) mg/dL 11/10/16 11/10/16 11/10/16 Range/Units 05:18 05:18 06:24 RBC (4.30-5.90) m/uL Hgb (13.0-17.5) gm/dL Hct (39.0-53.0) % MCV (80.0-100.0) fL MCHC (31.0-37.0) g/dL RDW (11.5-15.5) % Lymphocytes # (1.0-4.8) k/uL PT 13.0 H (9.0-12.0) sec Potassium 5.7 H (3.5-5.1) mmol/L Chloride 110 H (98-107) mmol/L Carbon Dioxide 21 L (22-30) mmol/L BUN 35 H (9-20) mg/dL Creatinine 1.69 H (0.66-1.25) mg/dL Glucose 150 H (74-99) mg/dL POC Glucose (mg/dL) 140 H (75-99) mg/dL 11/10/16 Range/Units 11:28 RBC (4.30-5.90) m/uL Hgb (13.0-17.5) gm/dL Hct (39.0-53.0) % MCV (80.0-100.0) fL MCHC (31.0-37.0) g/dL RDW (11.5-15.5) % Lymphocytes # (1.0-4.8) k/uL PT (9.0-12.0) sec Potassium (3.5-5.1) mmol/L Chloride (98-107) mmol/L Carbon Dioxide (22-30) mmol/L BUN (9-20) mg/dL Creatinine (0.66-1.25) mg/dL Glucose (74-99) mg/dL POC Glucose (mg/dL) 134 H (75-99) mg/dL Microbiology - Last 24 Hours (Table) 11/05/16 16:00 Blood Culture - Preliminary Blood No Growth after 96 hours Laboratory Results WBC 4.2 k/uL (3.8-10.6) 11/10/16 05:18 RBC 3.43 m/uL (4.30-5.90) L 11/10/16 05:18 Hgb 9.8 gm/dL (13.0-17.5) L 11/10/16 05:18 Hct 34.6 % (39.0-53.0) L 11/10/16 05:18 MCV 100.8 fL (80.0-100.0) H 11/10/16 05:18 MCH 28.7 pg (25.0-35.0) 11/10/16 05:18 MCHC 28.5 g/dL (31.0-37.0) L 11/10/16 05:18 RDW 18.1 % (11.5-15.5) H 11/10/16 05:18 Plt Count 220 k/uL (150-450) 11/10/16 05:18 Neutrophils % 81 % 11/10/16 05:18 Lymphocytes % 13 % 11/10/16 05:18 Monocytes % 4 % 11/10/16 05:18 Eosinophils % 0 % 11/10/16 05:18 Basophils % 0 % 11/10/16 05:18 Neutrophils # 3.4 k/uL (1.3-7.7) 11/10/16 05:18 Lymphocytes # 0.5 k/uL (1.0-4.8) L 11/10/16 05:18 Monocytes # 0.2 k/uL (0-1.0) 11/10/16 05:18 Eosinophils # 0.0 k/uL (0-0.7) 11/10/16 05:18 Basophils # 0.0 k/uL (0-0.2) 11/10/16 05:18 Hypochromasia Marked 11/10/16 05:18 Poikilocytosis Slight 11/08/16 04:34 Anisocytosis Slight 11/10/16 05:18 Macrocytosis Moderate 11/10/16 05:18 PT 13.0 sec (9.0-12.0) H 11/10/16 05:18 INR 1.3 (<1.1) 11/10/16 05:18 APTT 22.5 sec (22.0-30.0) 11/10/16 05:18 Sample Site lrad 11/05/16 08:39 ABG pH 7.34 (7.35-7.45) L 11/05/16 08:39 ABG pCO2 38 mmHg (35-45) 11/05/16 08:39 ABG pO2 75 mmHg (83-108) L 11/05/16 08:39 ABG HCO3 20 mmol/L (21-25) L 11/05/16 08:39 ABG Total CO2 21 mmol/L (19-24) 11/05/16 08:39 ABG O2 Saturation 94.0 % (94-97) 11/05/16 08:39 ABG Base Excess -4.9 mmol/L 11/05/16 08:39 FiO2 21 % 11/05/16 08:39 Sodium 138 mmol/L (137-145) 11/10/16 05:18 Potassium 5.7 mmol/L (3.5-5.1) H 11/10/16 05:18 Chloride 110 mmol/L (98-107) H 11/10/16 05:18 Carbon Dioxide 21 mmol/L (22-30) L 11/10/16 05:18 Anion Gap 7 mmol/L 11/10/16 05:18 BUN 35 mg/dL (9-20) H 11/10/16 05:18 Creatinine 1.69 mg/dL (0.66-1.25) H 11/10/16 05:18 Est GFR (MDRD) Af Amer 52 (>60 ml/min/1.73 sqM) 11/10/16 05:18 Est GFR (MDRD) Non-Af 43 (>60 ml/min/1.73 sqM) 11/10/16 05:18 Glucose 150 mg/dL (74-99) H 11/10/16 05:18 POC Glucose (mg/dL) 134 mg/dL (75-99) H 11/10/16 11:28 POC Glu [employer] Yesenia Cameron 11/10/16 11:28 Plasma Lactic Acid Chong 1.1 mmol/L (0.7-2.0) 11/06/16 22:45 Calcium 8.5 mg/dL (8.4-10.2) 11/10/16 05:18 Phosphorus 3.4 mg/dL (2.5-4.5) 11/10/16 05:18 Magnesium 2.0 mg/dL (1.6-2.3) 11/10/16 05:18 Total Bilirubin 0.9 mg/dL (0.2-1.3) 11/05/16 03:30 AST 13 U/L (17-59) L 11/05/16 03:30 ALT 21 U/L (21-72) 11/05/16 03:30 Alkaline Phosphatase 88 U/L (38-126) 11/05/16 03:30 Total Creatine Kinase 25 U/L (55-170) L 11/05/16 03:30 CK-MB (CK-2) 0.4 ng/mL (0.0-2.4) 11/05/16 03:30 CK-MB (CK-2) Rel Index 1.6 11/05/16 03:30 Troponin I <0.012 ng/mL (0.000-0.034) 11/05/16 03:30 Total Protein 5.7 g/dL (6.3-8.2) L 11/05/16 03:30 Albumin 2.3 g/dL (3.5-5.0) L 11/05/16 03:30 Lipase 47 U/L (23-300) 11/05/16 03:30 Cortisol 7 ug/dL 11/06/16 22:45 Urine Color Yellow 11/05/16 13:17 Urine Appearance Turbid (Clear) 11/05/16 13:17 Urine pH 5.0 (5.0-8.0) 11/05/16 13:17 Ur Specific [place] 1.016 (1.001-1.035) 11/05/16 13:17 Urine Protein 1+ (Negative) H 11/05/16 13:17 Urine Glucose (UA) Negative (Negative) 11/05/16 13:17 Urine Ketones Trace (Negative) H 11/05/16 13:17 Urine Blood Moderate (Negative) H 11/05/16 13:17 Urine Nitrate Negative (Negative) 11/05/16 13:17 Urine Bilirubin Negative (Negative) 11/05/16 13:17 Urine Urobilinogen 2.0 mg/dL (<2.0) 11/05/16 13:17 Ur Leukocyte Esterase Large (Negative) H 11/05/16 13:17 Urine RBC 77 /hpf (0-5) H 11/05/16 13:17 Urine WBC >182 /hpf (0-5) H 11/05/16 13:17 Urine WBC Clumps Many /hpf (None) H 11/05/16 13:17 Ur Squamous Epith Cells 1 /hpf (0-4) 11/05/16 13:17 Urine Bacteria Rare /hpf (None) H 11/05/16 13:17 Hyaline Casts 14 /lpf (0-2) H 11/05/16 13:17 Urine Mucus Occasional /hpf (None) H 11/05/16 13:17 Blood Type O Positive 11/05/16 03:30 Blood Type Recheck No 11/05/16 03:30 Antibody Screen NEGATIVE 11/05/16 03:30 Crossmatch See Detail 11/05/16 03:30 Transfuse Plasma 11/05/16 11/05/16 03:30 Spec Expiration Date 11/08/2016 - 42111/05/16 03:30 Microbiology 11/05/16 16:00 Blood Blood Culture - Preliminary No Growth after 96 hours 11/05/16 13:17 Urine,Catheterized Urine Culture - Final Pseudomonas aeruginosa Assessment and Plan (1) Septic shock Narrative/Plan: 51-year-old male who suffers from obesity presents to hospital with evidence of a 48 hour history of increasing amounts of melena or hematochezia. He was not having much abdominal pain. Both his recent history of hospitalization at the tertiary care center with acute renal failure he was brought into the emergency center. There is evidence of an elevated creatinine but improved from that from his last year visit when he was in acute renal failure. He does have evidence of the significant gastrointestinal bleeding and is being seen by surgery and gastroenterology. His Coumadin coagulopathy is improved with his INR going from 8.2-1.2 with this time. Plans for endoscopic evaluation if possible. The patient was seen in the outpatient setting and on November 03 had a urinalysis and culture performed. UA was markedly abnormal and urine culture shows evidence of a multidrug resistant Enterobacter cloacae. Consequently for antibiotic therapy carbapenem with meropenem is started with the dose that is hopefully acceptable for his current BMI. Some further culture data is becoming available and have pseudomonas as well as Proteus in the urine corrected from a prior Enterobacter. with this antibiotic therapy is altered to ceftazidime from carbapenem. The laboratory at this hospital now shows evidence of the pseudomonas aeruginosa but it is intermediate to ceftazidime and constantly antibiotic therapy is changed to cefepime. Unclear at this time what our plan will be for home antibiotic therapy. Patient seems to have a mild rash Benadryl as added. His atrial fibrillation has improved as his sepsis has been treated. Nephrology has evaluated without plans for renal replacement therapy. Mcknight catheter is in place and urine output is being monitored closely The patient is markedly improved today. Is looking forward to going home. We'll be able to complete his course of therapy for the pseudomonas urinary tract infection with ciprofloxacin 500 mg every 12 hours which should be an appropriate dose for his superobesity and current renal status. 7 day prescription is sent to his pharmacy. Status: Acute (2) Gram negative sepsis Status: Acute (3) Enterobacter sepsis Status: Acute (4) Gastrointestinal hemorrhage Status: Acute
--- NOTE | 2016-11-10 14:31 | P.PN ---
Subjective Progress note dated 11/07/2016 This is a 51-year-old male who was admitted on 11/05/2016. The patient was seen yesterday by my nurse practitioner myself. He remains in the ICU. He is awake and alert. I was called last night by the nurse because of low blood pressures. I believe they were treating a number not the patient. He never was tachycardic. He was awake and alert. He was lucid. He had good urine output. Anyway currently the patient's getting O2 at 2 L. His levophed is down to 6 mics per minute. Getting appointment 9 IV at 150 an hour. The patient's random cortisol level was low at 7. We'll attempt to see whether or not hydrocortisone makes a difference in his blood pressure. Other 90s doing reasonably well. Progress note dated 11/08/2016 51-year-old male admitted on 11/05/2016. The patient is doing better. His cortisol level was low. The patient was placed on hydrocortisone 100 mg every 8 hours. His blood pressure has improved. Levophed is currently off. He is getting appointment 9 IV at 1 50 mL an hour. He is getting O2 by nasal cannula 2 L/m. He can be transferred out of the unit today. We consented general medical floor with telemetry. Feeling much much better. Progress note dated 11/09/2016 51-year-old male admitted back on . He has morbid obesity. His cortisol levels were low. He was placed on hydrocortisone 100 mg every 8 hours. We able to wean off his nasal pressure. His blood pressures much improved. He is hoping to go home. Is also on nasal cannula at 2 L/m. He was transferred out of the unit yesterday over to 6 selective. Apparently told said that he go home. Dependent upon lung doctor in his hospitalist. Progress note dated 11/10/2016 51-year-old male admitted back on November 05. The patient has a history of morbid obesity. The patient also had a history of GI bleed. He is doing much better now. Feeling much better. Likely will be discharged home today. He was on pressor in the ICU but that improved with the administration of hydrocortisone for suspected adrenal insufficiency. Objective - Vital Signs Vital signs: Vital Signs Temp 97.7 F 11/10/16 08:00 Pulse 74 11/10/16 11:55 Resp 18 11/10/16 11:55 BP 124/61 11/10/16 11:55 Pulse Ox 92 L 11/10/16 11:55 Intake & Output 11/09/16 11/10/16 11/10/16 18:59 06:59 18:59 Intake Total 1800 600 400 Output Total 501 700 2 Balance 1299 -100 398 Intake: IV 600 550 400 Sodium Chloride 0.9% 1, 500 550 400 000 ml @ 150 mls/hr IV . Q6H40M [facility] Rx#:[id number] cefTAZidime 2 gm In 100 Sodium Chloride 0.9% 100 ml @ 100 mls/hr IVPB Q8HR [facility] Rx#:[id number] Intake, IV Titration 50 Amount Cefepime 2 gm In Sodium 50 Chloride 0.9% 50 ml @ 100 mls/hr IVPB Q8HR [facility] Rx# :[id number] Oral 1200 Output: Urine 500 700 Stool 1 2 Other: Voiding Method Indwelling Catheter Indwelling Catheter Indwelling Catheter # Bowel Movements 1 ABP, PAP, CO, CI - Last Documented Arterial Blood Pressure 118/67 - Exam No acute distress, oriented 3. HEENT examinations unremarkable. Nasal O2 in place. Mucous membranes are moist. Neck supple. Full range of motion. No adenopathy. Cardiovascular examination reveals distant heart sounds. S1-S2 normal. No S3- S4. No murmur. Lungs are relatively clear breath sounds are equal. Abdomen is obese. Bowel sounds are heard. Extremities reveal evidence of diffuse bilateral cellulitis with chronic venous stasis changes and significant edema. - Labs CBC & Chem 7: 11/10/16 05:18 11/10/16 05:18 Labs: Abnormal Lab Results - Last 24 Hours (Table) 11/09/16 11/09/16 11/10/16 Range/Units 16:35 20:20 05:18 RBC 3.43 L (4.30-5.90) m/uL Hgb 9.8 L (13.0-17.5) gm/dL Hct 34.6 L (39.0-53.0) % MCV 100.8 H (80.0-100.0) fL MCHC 28.5 L (31.0-37.0) g/dL RDW 18.1 H (11.5-15.5) % Lymphocytes # 0.5 L (1.0-4.8) k/uL PT (9.0-12.0) sec Potassium (3.5-5.1) mmol/L Chloride (98-107) mmol/L Carbon Dioxide (22-30) mmol/L BUN (9-20) mg/dL Creatinine (0.66-1.25) mg/dL Glucose (74-99) mg/dL POC Glucose (mg/dL) 143 H 156 H (75-99) mg/dL 11/10/16 11/10/16 11/10/16 Range/Units 05:18 05:18 06:24 RBC (4.30-5.90) m/uL Hgb (13.0-17.5) gm/dL Hct (39.0-53.0) % MCV (80.0-100.0) fL MCHC (31.0-37.0) g/dL RDW (11.5-15.5) % Lymphocytes # (1.0-4.8) k/uL PT 13.0 H (9.0-12.0) sec Potassium 5.7 H (3.5-5.1) mmol/L Chloride 110 H (98-107) mmol/L Carbon Dioxide 21 L (22-30) mmol/L BUN 35 H (9-20) mg/dL Creatinine 1.69 H (0.66-1.25) mg/dL Glucose 150 H (74-99) mg/dL POC Glucose (mg/dL) 140 H (75-99) mg/dL 11/10/16 Range/Units 11:28 RBC (4.30-5.90) m/uL Hgb (13.0-17.5) gm/dL Hct (39.0-53.0) % MCV (80.0-100.0) fL MCHC (31.0-37.0) g/dL RDW (11.5-15.5) % Lymphocytes # (1.0-4.8) k/uL PT (9.0-12.0) sec Potassium (3.5-5.1) mmol/L Chloride (98-107) mmol/L Carbon Dioxide (22-30) mmol/L BUN (9-20) mg/dL Creatinine (0.66-1.25) mg/dL Glucose (74-99) mg/dL POC Glucose (mg/dL) 134 H (75-99) mg/dL Microbiology - Last 24 Hours (Table) 11/05/16 16:00 Blood Culture - Preliminary Blood No Growth after 96 hours Assessment and Plan (1) Anemia Status: Acute (2) Atrial fibrillation with RVR Status: Acute (3) Enterobacter sepsis Status: Acute (4) Gram negative sepsis Status: Acute (5) Obesity Status: Acute (6) Septic shock Status: Acute (7) Acute renal failure Status: Acute (8) Cellulitis Status: Acute (9) Acute renal failure Status: Acute (10) Anemia Status: Acute (11) Cellulitis Status: Acute (12) Chronic a-fib Status: Acute (13) Gastrointestinal hemorrhage Status: Acute (14) Gram negative sepsis Status: Acute (15) Morbid obesity Status: Acute (16) Nausea & vomiting Status: Acute Plan: Plan dated 11/07/2016 The patient's levophed will continue to be weaned down. Because his cortisol level was low we'll go ahead and try to see whether the hydrocortisone makes a difference for him. We'll give him 100 mg IV push. I will I'll review the medications labs and x-rays. Additional recommendations suggestions are forthcoming. Once we get him off the pressor, he can move out to the floor. Antibiotics have been adjusted accordingly. We'll continue to follow. Prognosis is guarded. Plan dated 11/08/2016 The patient's vasopressor has been turned off. He seems to have responded to hydrocortisone 100 mg every 8. We'll transfer him out of the unit today. He' ll go to the general medical floor without telemetry. No additional recommendations are made. His prognosis is guarded. Eventually was transferred to transition him to Cortef 20 g in the morning and 10 g in the evening. Plan dated 11/09/2016 The patient seems to be much more stable. We will check the labs and any x- rays that were done. We'll look his medication profile. He might be able to go home in the near future. We'll continue to follow. Prognosis is guarded. Plan dated 11/10/2016 The patient is doing much better. Respiratory status is stable. Oxygen is been weaned off. His blood pressure stable. No issues with his heart rate and rhythm. No additional bleeding from the gastrointestinal tract. Labs are okay. We'll continue to follow. Prognosis is guarded. Time with Patient: Less than 30
[2016-11-10 15:31] VITALS: BMI 79.6
[2016-11-10 16:20] VITALS: BP 130/65
[2016-11-10 17:17] LABS: Glucose,Whole Blood 144 mg/dL (75-99)
[2016-11-10] MEDS: HYDROcodone/APAP 10-325MG 1 EACH TAB PO PRN (17:42)
--- NOTE | 2016-11-11 08:20 | DS ---
DATE OF ADMISSION: 11/05/2016 DATE OF DISCHARGE: 11/10/2016 FINAL DIAGNOSES: 1. Upper gastrointestinal bleeding multiple duodenal antral ulcers with acute blood loss anemia with hypotension, status post EGD . 2. Urinary tract infection with pseudomonas aeruginosa, with severe sepsis and septic shock present on admission. 3. Anemia. 4. Increased MCV. 5. Super morbid obesity with a BMI of 79.6 off anticoagulation at this time. 6. Hyperkalemia. 7. Increased creatinine with acute on chronic kidney disease multifactorial. 8. Possible chronic kidney disease, underlying chronic disease, stage unknown at this time. 9. History of hypertension. 10. History of atrial fibrillation. 11. History of cellulitis. 12. History of Enterobacter urinary tract infection. 13. History of anxiety. 14. Gait dysfunction. 15. Hyperkalemia secondary to chronic renal failure. 16. NO CODE, NO CPR, NO VENT. DISCHARGE DISPOSITION: The patient will be discharged in stable condition with guarded prognosis. Total time taken 35 minutes. I am covering for Dr. Raul Johnson. HISTORY OF PRESENT ILLNESS: This 51-year-old gentleman with a past medical history of multiple medical problems admitted to the hospital with gastrointestinal bleed as well as hypotension secondary to gastrointestinal bleed as well as pseudomonas urinary tract infection with sepsis, the patient treated with antibiotics, hemoglobin was also noted, anticoagulation on hold. On exam, vitals are stable condition. CARDIOVASCULAR: S1, S2. RESPIRATORY: A few scattered rhonchi. ABDOMEN: Soft, obese. LEGS: No edema, no swelling. CENTRAL NERVOUS SYSTEM: No focal deficits. Labs-bedoya hemoglobin is 9.8 and potassium 5.7, creatinine is 1.6. Low potassium diet is also advised. DISCHARGE ADVICE: 1. Diet is cardiac low potassium. 2. Activity limited until follow-up. 3. Follow-up with Dr. Raul Johnson in 2 to 3 days. 4. CBC, BMP. 5. Follow-up with Dr. Ying as advised. 6. Follow-up with Dr. Tan as recommended. 7. Home care is being arranged. 8. Medications will be: Cordarone 200 mg p.o. b.i.d. 9. Ammonium lactate one application daily. 10. Cipro 500 mg p.o. b.i.d. for one week. 11. Hydrocodone 1 tablet q.6h p.r.n. 12. Claritin 10 mg p.o. daily. 13.ritalin 20 mg p.o. b.i.d. 14. Lopressor 25 mg p.o. b.i.d. 15. Nystatin 1000 units one application topically. 16. Protonix 40 mg p.o. daily. 17. Promethazine 6.25 mg p.o. q.6 p.r.n. 18. Sodium bicarb 650 p.o. b.i.d. 19. Kayexalate 20 gm p.o. daily. 20. Flomax 0.4 daily. 21. Kenalog one application daily. 22. diphenhydramine 50 mg p.o. q.i.d. p.r.n. The patient will be discharged in a stable condition with guarded prognosis. MTDD
== END 2016-11-10 20:28 | disposition home or self-care (01) | DRG 871 ==
LOC: EC 02:42 → 6ICU 04:02 → 6SEL 11-08 18:12
PROVIDERS: ADMIT Family Medicine; ATTEND Family Medicine
PROC: 30233K1 Transfusion of Nonautologous Frozen Plasma into Peripheral Vein, Percutaneous Approach (ICD-10-PCS; 2016-11-05)
PROC: 30233N1 Transfusion of Nonautologous Red Blood Cells into Peripheral Vein, Percutaneous Approach (ICD-10-PCS; 2016-11-05)
PROC: 0T9B70Z Drainage of Bladder with Drainage Device, Via Natural or Artificial Opening (ICD-10-PCS; 2016-11-05)
PROC: 4A133B1 Monitoring of Arterial Pressure, Peripheral, Percutaneous Approach (ICD-10-PCS; 2016-11-05)
PROC: 4A133J1 Monitoring of Arterial Pulse, Peripheral, Percutaneous Approach (ICD-10-PCS; 2016-11-05)
PROC: 0DB68ZX Excision of Stomach, Via Natural or Artificial Opening Endoscopic, Diagnostic (ICD-10-PCS; principal; 2016-11-06 08:00)
DX: A41.59 Other Gram-negative sepsis (principal); R65.21 Severe sepsis with septic shock; N17.0 Acute kidney failure with tubular necrosis; E87.2 Acidosis; I95.9 Hypotension, unspecified; K25.4 Chronic or unspecified gastric ulcer with hemorrhage; D62 Acute posthemorrhagic anemia; E27.40 Unspecified adrenocortical insufficiency; K26.4 Chronic or unspecified duodenal ulcer with hemorrhage; Z68.45 Body mass index [BMI] 70 or greater, adult; N39.0 Urinary tract infection, site not specified; L03.116 Cellulitis of left lower limb; L03.115 Cellulitis of right lower limb; E87.5 Hyperkalemia; Z66 Do not resuscitate; E66.01 Morbid (severe) obesity due to excess calories; I48.2 Chronic atrial fibrillation; N18.9 Chronic kidney disease, unspecified; I12.9 Hypertensive chronic kidney disease with stage 1 through stage 4 chronic kidney disease, or unspecified chronic kidney disease; B96.5 Pseudomonas (aeruginosa) (mallei) (pseudomallei) as the cause of diseases classified elsewhere; T45.515A Adverse effect of anticoagulants, initial encounter; B35.1 Tinea unguium; K29.70 Gastritis, unspecified, without bleeding; S91.209A Unspecified open wound of unspecified toe(s) with damage to nail, initial encounter; R14.0 Abdominal distension (gaseous); I89.0 Lymphedema, not elsewhere classified; R06.00 Dyspnea, unspecified; R21 Rash and other nonspecific skin eruption; R60.0 Localized edema; E78.5 Hyperlipidemia, unspecified; I87.8 Other specified disorders of veins; R53.1 Weakness; F41.9 Anxiety disorder, unspecified; K42.9 Umbilical hernia without obstruction or gangrene; F32.9 Major depressive disorder, single episode, unspecified; R26.9 Unspecified abnormalities of gait and mobility; R23.4 Changes in skin texture; Z82.49 Family history of ischemic heart disease and other diseases of the circulatory system; Z16.24 Resistance to multiple antibiotics; Z79.82 Long term (current) use of aspirin; Z79.891 Long term (current) use of opiate analgesic; Z79.899 Other long term (current) drug therapy; Z86.19 Personal history of other infectious and parasitic diseases; Z83.3 Family history of diabetes mellitus; Z79.01 Long term (current) use of anticoagulants; Z87.440 Personal history of urinary (tract) infections; Z87.891 Personal history of nicotine dependence; Z74.01 Bed confinement status; Z87.448 Personal history of other diseases of urinary system
CPT/HCPCS: 36415; 43239; 71010; 80048; 80053; 81001; 82533; 82550; 82553; 82805; 83605; 83690; 83735; 84100; 84132; 84484; 85025; 85610; 85730; 86850; 86900; 86901; 86920; 87040; 87077; 87086; 87186; 88305; 88342; 93005; 93306; 96365; 96366; 96368; 96375; 99153; 99291

== ENCOUNTER 2018-10-21 16:06 | Emergency (ER) | payer OTHER ==
--- NOTE | 2018-10-21 16:44 | ED ---
General Adult HPI - General Chief complaint: GI Bleed Stated complaint: GI Bleed Time Seen by Provider: 10/21/18 16:13 Source: patient, family, EMS, RN notes reviewed Mode of arrival: EMS - History of Present Illness Initial comments: 53-year-old male with a past medical history of A. fib, diabetes, GI bleed, renal disease presents to the emergency department for a chief complaint of diarrhea. Patient states he has had loose dark black stools for about one week that he is concerned may have blood in them. Patient also complains of some mild generalized abdominal pain. He describes it as cramping in nature. He denies nausea or vomiting. Patient is tolerating oral liquids and drinking plenty of fluids at home. Patient states his home care physician told him to come into the emergency department for evaluation. Patient has no other complaints at this time including shortness of breath, chest pain, nausea or vomiting, headache, or visual changes. - Related Data Home Medications Medication Instructions Recorded Confirmed Hydrocodone/Acetaminophen [[place] 1 tab PO Q6H PRN 10/12/16 10/21/18 10-325] Furosemide [Lasix] 20 mg PO DAILY 08/15/17 10/21/18 Allopurinol [Zyloprim] 300 mg PO DAILY 10/21/18 10/21/18 Ammonium Lactate Lotion 1 applic TOPICAL BID 10/21/18 10/21/18 [Lac-Hydrin 12% Lotion] Ergocalciferol (Vitamin D2) 50,000 unit PO MO 10/21/18 10/21/18 [Drisdol] Ferrous Sulfate [Feosol] 325 mg PO BID 10/21/18 10/21/18 Levothyroxine Sodium [Synthroid] 75 mcg PO DAILY 10/21/18 10/21/18 sitaGLIPtin [Januvia] 25 mg PO DAILY 10/21/18 10/21/18 Previous Rx's Medication Instructions Recorded Metoprolol Tartrate [Lopressor] 25 mg PO BID #0 11/10/16 Pantoprazole Sodium [Protonix] 40 mg PO DAILY #30 tablet. 11/10/16 Allergies Allergy/AdvReac Type Severity Reaction Status Date / Time warfarin [From Coumadin] AdvReac caused GI Verified 10/21/18 16:55 bleed, affected kidney function wool AdvReac Unknown Verified 10/21/18 16:55 Review of Systems ROS Statement: Those systems with pertinent positive or pertinent negative responses have been documented in the HPI. ROS Other: All systems not noted in ROS Statement are negative. Past Medical History Past Medical History: Atrial Fibrillation, Diabetes Mellitus, GERD/Reflux, Hypertension, Renal Disease, Skin Disorder Additional Past Medical History / Comment(s): Lymphedema, cellulitis; Hx of Dialysis; ?renal disease; Hx of GI Bleed related to coumadin, wound left calf History of Any Multi-Drug Resistant Organisms: MRSA, Other MDRO Date of last positivie culture/infection: 08/21/17 MDRO Source:: leg rt Past Surgical History: Orthopedic Surgery Additional Past Surgical History / Comment(s): bilateral feet surgery. per patient had pins in his feet. Past Anesthesia/Blood Transfusion Reactions: No Reported Reaction Past Psychological History: Anxiety Smoking Status: Former smoker Past Alcohol Use History: Occasional Past Drug Use History: None Reported - Past Family History Father Family Medical History: Diabetes Mellitus Mother Additional Family Medical History / Comment(s): lost both of legs, blood clot surgeries, stent in leg, carotid endardectomy General Exam - General Exam Comments Initial Comments: Exam is limited due to body habitus General appearance: alert, in no apparent distress Head exam: Present: atraumatic, normocephalic, normal inspection Eye exam: Present: normal appearance, PERRL, EOMI. Absent: scleral icterus, conjunctival injection, periorbital swelling ENT exam: Present: normal exam, normal oropharynx, mucous membranes moist, normal external ear exam Neck exam: Present: normal inspection, full ROM. Absent: tenderness, meningismus, lymphadenopathy Respiratory exam: Present: normal lung sounds bilaterally. Absent: respiratory distress, wheezes, rales, rhonchi, stridor Cardiovascular Exam: Present: regular rate, normal rhythm, normal heart sounds. Absent: systolic murmur, diastolic murmur, rubs, gallop, clicks GI/Abdominal exam: Present: soft, tenderness (Minimal lower generalized abdominal tenderness without guarding or rebound), normal bowel sounds. Absent : distended, guarding, rebound, rigid Neurological exam: Present: alert, oriented X3, CN II-XII intact Psychiatric exam: Present: normal affect, normal mood Course Vital Signs 10/21/18 16:17 Temperature 97.2 F L Pulse Rate 69 Respiratory 18 Rate Blood Pressure 116/79 O2 Sat by Pulse 96 Oximetry Medical Decision Making - Medical Decision Making 83-year-old male presents to the emergency department for a chief complaint of diarrhea. Patient states it has been dark for about one week. On exam patient has minimal generalized lower abdominal tenderness, exam is unimpressive. CBC is unremarkable, patient's white count is within normal limits at 5.4. CMP does show a creatinine of 2.14 which is at patient's baseline. Total bilirubin minimally elevated at 1.6. Occult blood is negative for the stool. Patient brought his own sample which is dark but does not appear to have gross blood. C. diff negative. Stool culture pending. At this time patient will be discharged home with follow-up to GI. However I did discuss if he has worsening abdominal pain or fevers to return immediately to the emergency department. - Lab Data Result diagrams: 10/21/18 17:30 10/21/18 17:30 Lab Results 10/21/18 10/21/18 10/21/18 Range/Units 17:30 17:30 17:30 WBC 5.4 (3.8-10.6) k/uL RBC 4.83 (4.30-5.90) m/uL Hgb 13.7 (13.0-17.5) gm/dL Hct 46.4 (39.0-53.0) % MCV 96.0 (80.0-100.0) fL MCH 28.3 (25.0-35.0) pg MCHC 29.4 L (31.0-37.0) g/dL RDW 19.1 H (11.5-15.5) % Plt Count 228 (150-450) k/uL Neutrophils % 68 % Lymphocytes % 18 % Monocytes % 5 % Eosinophils % 6 % Basophils % 1 % Neutrophils # 3.7 (1.3-7.7) k/uL Lymphocytes # 1.0 (1.0-4.8) k/uL Monocytes # 0.3 (0-1.0) k/uL Eosinophils # 0.3 (0-0.7) k/uL Basophils # 0.0 (0-0.2) k/uL Hypochromasia Marked Anisocytosis Slight Macrocytosis Slight Sodium 137 (137-145) mmol/L Potassium 4.1 (3.5-5.1) mmol/L Chloride 107 (98-107) mmol/L Carbon Dioxide 22 (22-30) mmol/L Anion Gap 8 mmol/L BUN 24 H (9-20) mg/dL Creatinine 2.14 H (0.66-1.25) mg/dL Est GFR (CKD-EPI)AfAm 39 (>60 ml/min/1.73 sqM) Est GFR (CKD-EPI)NonAf 34 (>60 ml/min/1.73 sqM) Glucose 109 H (74-99) mg/dL Calcium 9.0 (8.4-10.2) mg/dL Total Bilirubin 1.6 H (0.2-1.3) mg/dL AST 18 (17-59) U/L ALT 19 L (21-72) U/L Alkaline Phosphatase 136 H (38-126) U/L Total Protein 7.2 (6.3-8.2) g/dL Albumin 3.3 L (3.5-5.0) g/dL Amylase 50 (30-110) U/L Lipase 218 (23-300) U/L Stool Occult Blood Negative (Negative) C. difficile (EIA) Intrp (Negative) 10/21/18 Range/Units 17:36 WBC (3.8-10.6) k/uL RBC (4.30-5.90) m/uL Hgb (13.0-17.5) gm/dL Hct (39.0-53.0) % MCV (80.0-100.0) fL MCH (25.0-35.0) pg MCHC (31.0-37.0) g/dL RDW (11.5-15.5) % Plt Count (150-450) k/uL Neutrophils % % Lymphocytes % % Monocytes % % Eosinophils % % Basophils % % Neutrophils # (1.3-7.7) k/uL Lymphocytes # (1.0-4.8) k/uL Monocytes # (0-1.0) k/uL Eosinophils # (0-0.7) k/uL Basophils # (0-0.2) k/uL Hypochromasia Anisocytosis Macrocytosis Sodium (137-145) mmol/L Potassium (3.5-5.1) mmol/L Chloride (98-107) mmol/L Carbon Dioxide (22-30) mmol/L Anion Gap mmol/L BUN (9-20) mg/dL Creatinine (0.66-1.25) mg/dL Est GFR (CKD-EPI)AfAm (>60 ml/min/1.73 sqM) Est GFR (CKD-EPI)NonAf (>60 ml/min/1.73 sqM) Glucose (74-99) mg/dL Calcium (8.4-10.2) mg/dL Total Bilirubin (0.2-1.3) mg/dL AST (17-59) U/L ALT (21-72) U/L Alkaline Phosphatase (38-126) U/L Total Protein (6.3-8.2) g/dL Albumin (3.5-5.0) g/dL Amylase (30-110) U/L Lipase (23-300) U/L Stool Occult Blood (Negative) C. difficile (EIA) Intrp Negative (Negative) Disposition Clinical Impression: Diarrhea Disposition: HOME SELF-CARE Condition: Good Instructions (If sedation given, give patient instructions): Acute Diarrhea (ED ) Additional Instructions: Please drink plenty of fluids. Please follow-up with GI and primary care. Please return here to the emergency department if you have any worsening symptoms. Is patient prescribed a controlled substance at d/c from ED?: No Referrals: Zac Welch MD [Primary Care Provider] - 1-2 days Klaus Perez MD [STAFF PHYSICIAN] - 1-2 days Time of Disposition: 19:24
[2018-10-21] MEDS ORDERED: SODIUM CHLORIDE 0.9% 1,000 ML IV STA (16:46)
[2018-10-21 17:49] LABS: Anisocytosis Slight; Basophils % (A) 1 %; Eosinophils # (A) 0.3 k/uL (0-0.7); Eosinophils % (A) 6 %; HCT 46.4 % (39.0-53.0); HGB 13.7 gm/dL (13.0-17.5); Hypochromasia Marked; Lymphocytes % (A) 18 %; MCH 28.3 pg (25.0-35.0); MCHC 29.4 g/dL (31.0-37.0); Macrocytosis Slight; Mean Platelet Volume 7.6; Monocytes # (A) 0.3 k/uL (0-1.0); Monocytes % (A) 5 %; Neutrophils # (A) 3.7 k/uL (1.3-7.7); Neutrophils % (A) 68 %; Platelet Count 228 k/uL (150-450); RBC 4.83 m/uL (4.30-5.90); RDW 19.1 % (11.5-15.5); WBC 5.4 k/uL (3.8-10.6)
[2018-10-21 17:59] LABS: Albumin 3.3 g/dL (3.5-5.0); Potassium 4.1 mmol/L (3.5-5.1); Total Bilirubin 1.6 mg/dL (0.2-1.3); Total Protein 7.2 g/dL (6.3-8.2)
[2018-10-21 19:37] VITALS: BP 120/73; PULSE 64; RESP 16; TEMP 98
[2018-10-21 20:33] LABS: Appearance,Urine Clear (Clear); Bilirubin,Urine Negative (Negative); Blood,Urine Negative (Negative); Color,Urine Yellow; Glucose,Urine (UA) Negative (Negative); Hyaline Casts,Urine 8 /lpf (0-2); Ketones,Urine Negative (Negative); Leukocyte Esterase,Urine Small (Negative); Mucus,Urine Rare /hpf; Nitrite,Urine Negative (Negative); Protein,Urine 1+ (Negative); RBC,Urine 1 /hpf (0-5); Specific Gravity,Urine 1.015 (1.001-1.035); Squamous Epithelial Cell,Urine 1 /hpf (0-4); WBC,Urine 7 /hpf (0-5)
== END 2018-10-21 22:30 | disposition home or self-care (01) ==
LOC: EC 16:06
DX: R19.7 Diarrhea, unspecified (principal); R10.30 Lower abdominal pain, unspecified; E11.9 Type 2 diabetes mellitus without complications; I10 Essential (primary) hypertension; Z87.891 Personal history of nicotine dependence; Z79.84 Long term (current) use of oral hypoglycemic drugs; Z79.890 Hormone replacement therapy; Z79.899 Other long term (current) drug therapy; Z88.8 Allergy status to other drugs, medicaments and biological substances; Z86.14 Personal history of Methicillin resistant Staphylococcus aureus infection; Z98.890 Other specified postprocedural states; Z99.2 Dependence on renal dialysis
CPT/HCPCS: 36415; 80053; 81001; 82150; 82272; 83690; 85025; 87045; 87046; 87324; 96360; 99284

== ENCOUNTER 2019-02-12 20:24 | Inpatient (IN) | payer OTHER ==
[2019-02-12] MEDS ORDERED: ACETAMINOPHEN TAB 500 MG TAB PO STA (21:26)
[2019-02-12] MEDS ORDERED: ONDANSETRON 4 MG/2 ML VIAL IVP STA (21:33)
[2019-02-12] MEDS ORDERED: HYDROmorphone 2 MG/ML 1 ML SYRINGE IVP STA (21:33)
--- NOTE | 2019-02-12 21:34 | ED ---
Male Urogenital HPI - General Source: patient, family Mode of arrival: EMS <Myranda Angela - Last Filed: 02/13/19 03:35> <Phi Graham - Last Filed: 02/16/19 07:08> - General Chief complaint: Urogenital Stated complaint: Swollen Testicles Time Seen by Provider: 02/12/19 21:00 - History of Present Illness Initial comments: 53-year-old male patient with multiple medical problems presents to the emergency department today for evaluation of scrotal pain and swelling. Patient states he has had a swelling to the area for the last couple of weeks. Patient states he did have ultrasound showing increase fluid. Patient states that the swelling seems to be worsening and he is developing thickened skin to the posterior scrotal region as well as a stinging sensation patient states he has had decreased urine output that has been dark in color. Patient states he is taking [place] for pain but it is not helping. Patient denies any shortness of breath with this. Patient states he does have swelling and weeping to the lower extremities chronically. States takes 20 mg of Lasix and has been taking this as directed. Patient states he has been feeling chilled and feverish. States he is feeling generally weak. Patient denies any recent rash, chest pain, abdominal pain, nausea, vomiting, diarrhea, constipation, back pain, numbness, tingling, dizziness, headache, visual changes, or any other complaints. (Myranda Angela) - Related Data Home Medications Medication Instructions Recorded Confirmed Hydrocodone/Acetaminophen [[place] 1 tab PO Q6H PRN 10/12/16 02/12/19 10-325] Furosemide [Lasix] 20 mg PO DAILY 08/15/17 02/12/19 Allopurinol [Zyloprim] 300 mg PO DAILY 10/21/18 02/12/19 Ammonium Lactate Lotion 1 applic TOPICAL BID PRN 10/21/18 02/12/19 [Lac-Hydrin 12% Lotion] Ergocalciferol (Vitamin D2) 50,000 unit PO MO 10/21/18 02/12/19 [Drisdol] Ferrous Sulfate [Feosol] 325 mg PO BID 10/21/18 02/12/19 Levothyroxine Sodium [Synthroid] 75 mcg PO DAILY 10/21/18 02/12/19 sitaGLIPtin [Januvia] 25 mg PO DAILY 10/21/18 02/12/19 Metoprolol Tartrate [Lopressor] 50 mg PO BID 02/12/19 02/12/19 Nystatin [Nystop] 1 applic TOPICAL BID PRN 02/12/19 02/12/19 Previous Rx's Medication Instructions Recorded Pantoprazole Sodium [Protonix] 40 mg PO DAILY #30 tablet. 11/10/16 Allergies Allergy/AdvReac Type Severity Reaction Status Date / Time warfarin [From Coumadin] AdvReac caused GI Verified 02/12/19 21:29 bleed, affected kidney function wool AdvReac Unknown Verified 02/12/19 21:29 Review of Systems ROS Other: All systems not noted in ROS Statement are negative. <Myranda Angela - Last Filed: 02/13/19 03:35> ROS Other: All systems not noted in ROS Statement are negative. <Phi Graham - Last Filed: 02/16/19 07:08> ROS Statement: Those systems with pertinent positive or pertinent negative responses have been documented in the HPI. Past Medical History Past Medical History: Atrial Fibrillation, Diabetes Mellitus, GERD/Reflux, Hypertension, Renal Disease, Skin Disorder Additional Past Medical History / Comment(s): Lymphedema, cellulitis; Hx of Dialysis; ?renal disease; Hx of GI Bleed related to coumadin, wound left calf History of Any Multi-Drug Resistant Organisms: MRSA, Other MDRO Date of last positivie culture/infection: 08/21/17 MDRO Source:: leg rt Past Surgical History: Orthopedic Surgery Additional Past Surgical History / Comment(s): bilateral feet surgery. per patient had pins in his feet. Past Anesthesia/Blood Transfusion Reactions: No Reported Reaction Past Psychological History: Anxiety Smoking Status: Former smoker Past Alcohol Use History: Occasional Past Drug Use History: None Reported - Past Family History Father Family Medical History: Diabetes Mellitus Mother Additional Family Medical History / Comment(s): lost both of legs, blood clot surgeries, stent in leg, carotid endardectomy <Myranda Angela - Last Filed: 02/13/19 03:35> General Exam General appearance: alert, in no apparent distress, other (This is a well- developed, well-nourished adult male patient in no acute distress. Vital signs upon presentation are temperature 99.1F, pulse 119, respirations 20, blood pressure 95/68, pulse ox 91% on room air.) Eye exam: Present: normal appearance, PERRL, EOMI. Absent: scleral icterus, conjunctival injection, periorbital swelling ENT exam: Present: normal exam, mucous membranes moist Respiratory exam: Present: normal lung sounds bilaterally. Absent: respiratory distress, wheezes, rales, rhonchi, stridor Cardiovascular Exam: Present: normal rhythm, tachycardia, normal heart sounds. Absent: systolic murmur, diastolic murmur, rubs, gallop, clicks GI/Abdominal exam: Present: soft, normal bowel sounds. Absent: distended, tenderness, guarding, rebound, rigid exam: Present: scrotal swelling (Severe) Extremities exam: Present: full ROM, normal capillary refill, other (Bilateral lower legs are edematous and weeping). Absent: normal inspection, tenderness, pedal edema, joint swelling, calf tenderness Neurological exam: Present: alert, oriented X3, CN II-XII intact Psychiatric exam: Present: normal affect, normal mood Skin exam: Present: warm, dry, intact, normal color. Absent: rash <Bantle,Myranda M - Last Filed: 02/13/19 03:35> Course Vital Signs 02/12/19 02/12/19 02/12/19 20:58 21:00 21:04 Temperature 99.1 F Pulse Rate 119 H Pulse Rate [ Director Of Culture ] Respiratory 20 Rate Blood Pressure 89/66 95/68 O2 Sat by Pulse 90 L 88 L 91 L Oximetry 02/12/19 02/12/19 02/12/19 21:20 22:00 22:20 Temperature Pulse Rate 94 Pulse Rate [ 119 H Director Of Culture ] Respiratory 15 Rate Blood Pressure 95/68 89/64 O2 Sat by Pulse 92 L Oximetry 02/12/19 02/12/19 02/12/19 22:30 22:40 23:00 Temperature Pulse Rate 92 101 H 101 H Pulse Rate [ Director Of Culture ] Respiratory 20 13 13 Rate Blood Pressure 84/50 78/51 74/54 O2 Sat by Pulse 94 L 93 L 89 L Oximetry 02/12/19 02/12/19 02/12/19 23:15 23:20 23:30 Temperature Pulse Rate 89 106 H 94 Pulse Rate [ Director Of Culture ] Respiratory 22 17 21 Rate Blood Pressure 80/50 80/50 92/48 O2 Sat by Pulse 95 94 L 95 Oximetry 02/12/19 02/13/19 02/13/19 23:40 00:00 00:13 Temperature Pulse Rate 93 91 Pulse Rate [ Director Of Culture ] Respiratory Rate Blood Pressure 71/49 92/43 83/54 O2 Sat by Pulse 90 L 94 L Oximetry 02/13/19 02/13/19 02/13/19 00:20 00:31 00:40 Temperature 98.2 F Pulse Rate 94 93 94 Pulse Rate [ Director Of Culture ] Respiratory 17 23 12 Rate Blood Pressure 76/44 81/58 81/58 O2 Sat by Pulse 95 Oximetry 02/13/19 02/13/19 02/13/19 01:00 01:05 01:19 Temperature Pulse Rate 111 H 99 85 Pulse Rate [ Director Of Culture ] Respiratory 14 19 23 Rate Blood Pressure 78/53 83/54 100/71 O2 Sat by Pulse 94 L Oximetry 02/13/19 02/13/19 02/13/19 01:20 01:40 02:00 Temperature Pulse Rate 81 91 93 Pulse Rate [ Director Of Culture ] Respiratory 19 16 18 Rate Blood Pressure 100/71 97/68 101/71 O2 Sat by Pulse 94 L 94 L 94 L Oximetry 02/13/19 02/13/19 02:20 02:57 Temperature Pulse Rate 99 94 Pulse Rate [ Director Of Culture ] Respiratory 19 19 Rate Blood Pressure 96/72 96/72 O2 Sat by Pulse 94 L 95 Oximetry Medical Decision Making - Lab Data Result diagrams: 02/12/19 21:55 02/12/19 21:55 - EKG Data -: EKG Interpreted by [place] - Radiology Data Radiology results: report reviewed, image reviewed <Myranda Angela - Last Filed: 02/13/19 03:35> - Lab Data Result diagrams: 02/16/19 04:53 02/16/19 04:53 <Phi Graham - Last Filed: 02/16/19 07:08> - Medical Decision Making 53-year-old male patient presents to emergency department today for evaluation of swelling to his scrotum. Patient states his been going on for the last 2 weeks, did have an ultrasound which showed increase fluids. Physical examination did reveal swollen, edematous scrotum and legs. Both appear cellulitic. Labs reviewed and did reveal elevated white blood cell count at 12.6. Patient did have a low-grade temperature at 99. X-ray of the chest was obtained and showed no acute cardio pulmonary process. Urinalysis shows evidence of infection. While in the department patient's blood pressure did decrease to the 80 systolic over 40s diastolic. Patient remained asymptomatic however we are unable to raise blood pressure using fluids. He did receive 3.5 L of normal saline per sepsis protocol. We did start levothyroid which improved blood pressure satisfactorily. Patient will be admitted to the ICU. Started on IV antibiotics. We will have urology consult for scrotal swelling. Attending Dr. Graham did evaluate the patient. He did speak to Dr. Martinez for critical care consult. (Myranda Angela) I saw this patient in conjunction with the physician offset assistant press operator. I performed independent history and physical exam. Agree with case management. (Phi Graham) - Lab Data Lab Results 02/12/19 02/12/19 02/12/19 Range/Units 21:50 21:55 21:55 WBC 12.4 H (3.8-10.6) k/uL RBC 4.10 L (4.30-5.90) m/uL Hgb 12.2 L (13.0-17.5) gm/dL Hct 40.0 (39.0-53.0) % MCV 97.4 (80.0-100.0) fL MCH 29.6 (25.0-35.0) pg MCHC 30.4 L (31.0-37.0) g/dL RDW 18.2 H (11.5-15.5) % Plt Count 176 (150-450) k/uL Neutrophils % 93 % Lymphocytes % 4 % Monocytes % 2 % Eosinophils % 1 % Basophils % 0 % Neutrophils # 11.5 H (1.3-7.7) k/uL Lymphocytes # 0.5 L (1.0-4.8) k/uL Monocytes # 0.3 (0-1.0) k/uL Eosinophils # 0.1 (0-0.7) k/uL Basophils # 0.0 (0-0.2) k/uL Hypochromasia Marked Anisocytosis Slight Macrocytosis Slight PT (9.0-12.0) sec INR (<1.2) APTT (22.0-30.0) sec Sodium 134 L (137-145) mmol/L Potassium 3.7 (3.5-5.1) mmol/L Chloride 108 H (98-107) mmol/L Carbon Dioxide 20 L (22-30) mmol/L Anion Gap 6 mmol/L BUN 41 H (9-20) mg/dL Creatinine 2.24 H (0.66-1.25) mg/dL Est GFR (CKD-EPI)AfAm 37 (>60 ml/min/1.73 sqM) Est GFR (CKD-EPI)NonAf 32 (>60 ml/min/1.73 sqM) Glucose 121 H (74-99) mg/dL Plasma Lactic Acid [place] (0.7-2.0) mmol/L Calcium 7.1 L (8.4-10.2) mg/dL Total Bilirubin 3.2 H (0.2-1.3) mg/dL AST 19 (17-59) U/L ALT 14 L (21-72) U/L Alkaline Phosphatase 118 (38-126) U/L Troponin I <0.012 (0.000-0.034) ng/mL Total Protein 5.3 L (6.3-8.2) g/dL Albumin 2.2 L (3.5-5.0) g/dL Urine Color Urine Appearance (Clear) Urine pH (5.0-8.0) Ur Specific [place] (1.001-1.035) Urine Protein (Negative) Urine Glucose (UA) (Negative) Urine Ketones (Negative) Urine Blood (Negative) Urine Nitrite (Negative) Urine Bilirubin (Negative) Urine Urobilinogen (<2.0) mg/dL Ur Leukocyte Esterase (Negative) Urine RBC (0-5) /hpf Urine WBC (0-5) /hpf Urine WBC Clumps (None) /hpf Ur Squamous Epith Cells (0-4) /hpf Urine Bacteria (None) /hpf Hyaline Casts (0-2) /lpf Urine Mucus (None) /hpf 02/12/19 02/12/19 02/13/19 Range/Units 21:55 21:55 00:10 WBC (3.8-10.6) k/uL RBC (4.30-5.90) m/uL Hgb (13.0-17.5) gm/dL Hct (39.0-53.0) % MCV (80.0-100.0) fL MCH (25.0-35.0) pg MCHC (31.0-37.0) g/dL RDW (11.5-15.5) % Plt Count (150-450) k/uL Neutrophils % % Lymphocytes % % Monocytes % % Eosinophils % % Basophils % % Neutrophils # (1.3-7.7) k/uL Lymphocytes # (1.0-4.8) k/uL Monocytes # (0-1.0) k/uL Eosinophils # (0-0.7) k/uL Basophils # (0-0.2) k/uL Hypochromasia Anisocytosis Macrocytosis PT 14.8 H (9.0-12.0) sec INR 1.5 H (<1.2) APTT 26.4 (22.0-30.0) sec Sodium (137-145) mmol/L Potassium (3.5-5.1) mmol/L Chloride (98-107) mmol/L Carbon Dioxide (22-30) mmol/L Anion Gap mmol/L BUN (9-20) mg/dL Creatinine (0.66-1.25) mg/dL Est GFR (CKD-EPI)AfAm (>60 ml/min/1.73 sqM) Est GFR (CKD-EPI)NonAf (>60 ml/min/1.73 sqM) Glucose (74-99) mg/dL Plasma Lactic Acid [place] 1.7 (0.7-2.0) mmol/L Calcium (8.4-10.2) mg/dL Total Bilirubin (0.2-1.3) mg/dL AST (17-59) U/L ALT (21-72) U/L Alkaline Phosphatase (38-126) U/L Troponin I (0.000-0.034) ng/mL Total Protein (6.3-8.2) g/dL Albumin (3.5-5.0) g/dL Urine Color [place] Urine Appearance Cloudy (Clear) Urine pH 5.5 (5.0-8.0) Ur Specific [place] 1.019 (1.001-1.035) Urine Protein 1+ H (Negative) Urine Glucose (UA) Negative (Negative) Urine Ketones Negative (Negative) Urine Blood Negative (Negative) Urine Nitrite Negative (Negative) Urine Bilirubin 1+ H (Negative) Urine Urobilinogen 3.0 (<2.0) mg/dL Ur Leukocyte Esterase Large H (Negative) Urine RBC 4 (0-5) /hpf Urine WBC 43 H (0-5) /hpf Urine WBC Clumps Few H (None) /hpf Ur Squamous Epith Cells 2 (0-4) /hpf Urine Bacteria Rare H (None) /hpf Hyaline Casts 4 H (0-2) /lpf Urine Mucus Rare H (None) /hpf - EKG Data EKG Comments: EKG obtained at 2238 shows A. fib with an incomplete right bundle branch block, ventricular rate is 94, QRS duration 116, QT 350, QTC 437. (Myranda Angela) - Radiology Data One view x-ray of the chest is obtained. Report was reviewed in its entirety. Impression by Dr. Chappell shows no acute findings. (Myranda Angela) Disposition Decision to Admit Reason: Admit from EC Decision Date: 02/13/19 Decision Time: 00:53 <Myranda Angela - Last Filed: 02/13/19 03:35> <Phi Graham - Last Filed: 02/16/19 07:08> Clinical Impression: Sepsis, Hypotension, Urinary tract infection, Scrotal swelling Disposition: ADMITTED IP TO THIS [facility] Condition: Serious
[2019-02-12] MEDS: SODIUM CHLORIDE 0.9% 500 ML 500 ML IV SCH ×2 (22:00→22:01)
[2019-02-12 22:34] LABS: INR 1.5 (<1.2); Partial Thromboplastin Time 26.4 sec (22.0-30.0); Prothrombin Time 14.8 sec (9.0-12.0)
[2019-02-12 22:35] LABS: Albumin 2.2 g/dL (3.5-5.0); Calcium 7.1 mg/dL (8.4-10.2); Potassium 3.7 mmol/L (3.5-5.1); Total Bilirubin 3.2 mg/dL (0.2-1.3); Total Protein 5.3 g/dL (6.3-8.2)
[2019-02-12 22:37] LABS: Anisocytosis Slight; Basophils % (A) 0 %; Eosinophils # (A) 0.1 k/uL (0-0.7); Eosinophils % (A) 1 %; HGB 12.2 gm/dL (13.0-17.5); Hypochromasia Marked; Lymphocytes # (A) 0.5 k/uL (1.0-4.8); Lymphocytes % (A) 4 %; MCH 29.6 pg (25.0-35.0); MCHC 30.4 g/dL (31.0-37.0); MCV 97.4 fL (80.0-100.0); Macrocytosis Slight; Mean Platelet Volume 8.6; Monocytes # (A) 0.3 k/uL (0-1.0); Monocytes % (A) 2 %; Neutrophils # (A) 11.5 k/uL (1.3-7.7); Neutrophils % (A) 93 %; Platelet Count 176 k/uL (150-450); RDW 18.2 % (11.5-15.5); WBC 12.4 k/uL (3.8-10.6)
[2019-02-12] MEDS ORDERED: SODIUM CHLORIDE 0.9% IV ONE (22:46)
[2019-02-12] MEDS ORDERED: SODIUM CHLORIDE 0.9% 1,000 ML IV ONE (22:47)
[2019-02-13 00:25] LABS: Appearance,Urine Cloudy (Clear); Bacteria,Urine Rare /hpf; Bilirubin,Urine 1+ (Negative); Blood,Urine Negative (Negative); Color,Urine Orange; Glucose,Urine (UA) Negative (Negative); Hyaline Casts,Urine 4 /lpf (0-2); Ketones,Urine Negative (Negative); Leukocyte Esterase,Urine Large (Negative); Mucus,Urine Rare /hpf; Nitrite,Urine Negative (Negative); PH, Urine 5.5 (5.0-8.0); Protein,Urine 1+ (Negative); RBC,Urine 4 /hpf (0-5); Specific Gravity,Urine 1.019 (1.001-1.035); Squamous Epithelial Cell,Urine 2 /hpf (0-4); WBC,Urine 43 /hpf (0-5)
[2019-02-13] MEDS ORDERED: NOREPINEPHRINE 4 MG in SODIUM CHLORIDE 0.9% 250 ML IV ONE (00:42)
[2019-02-13] MEDS ORDERED: VANCOMYCIN IV PER PHARMACY 1 EACH MISC MISCELLANE PRN (00:43)
[2019-02-13] MEDS ORDERED: NALOXONE 0.4 MG/ML 1 ML VIAL IV PRN (00:49)
[2019-02-13] MEDS ORDERED: VANCOMYCIN 2,000 MG in SODIUM CHLORIDE 0.9% 500 ML 500 ML IVPB STA (00:52)
[2019-02-13] MEDS: SODIUM CHLORIDE 0.9% 1,000 ML IV SCH ×3 (01:25→20:37)
[2019-02-13] MEDS ORDERED: PIPERACILLIN-TAZOBACTAM 3.375 GM in SODIUM CHLORIDE 0.9% 100 ML IVPB STA (02:07)
--- NOTE | 2019-02-13 02:40 | XR ---
EXAM: XR Chest, 1 View CLINICAL HISTORY: ITS.REASON XR Reason: Pain TECHNIQUE: Frontal view of the chest. COMPARISON: No relevant prior studies available. FINDINGS: Lungs: Unremarkable. No consolidation. Pleural space: Unremarkable. No pneumothorax. Heart: No pneumomediastinum. Mediastinum: Unremarkable. Bones/joints: No definite fracture. IMPRESSION: No acute findings.
[2019-02-13 03:12] LABS: Glucose,Whole Blood 124 mg/dL (75-99)
[2019-02-13] MEDS ORDERED: HYDROmorphone 1 MG/ML 1 ML SYRINGE IVP STA ×3 (03:36→17:02)
[2019-02-13] MEDS ORDERED: LIDOCAINE 2% GEL 30 ML TUBE ONE (03:50)
[2019-02-13 05:11] LABS: Anisocytosis Slight; Basophils % (A) 0 %; Eosinophils # (A) 0.1 k/uL (0-0.7); Eosinophils % (A) 1 %; HCT 44.1 % (39.0-53.0); HGB 12.6 gm/dL (13.0-17.5); Hypochromasia Marked; Lymphocytes # (A) 0.7 k/uL (1.0-4.8); Lymphocytes % (A) 6 %; MCH 28.4 pg (25.0-35.0); MCHC 28.6 g/dL (31.0-37.0); MCV 99.2 fL (80.0-100.0); Macrocytosis Slight; Mean Platelet Volume 8.4; Monocytes # (A) 0.3 k/uL (0-1.0); Monocytes % (A) 3 %; Neutrophils # (A) 11.5 k/uL (1.3-7.7); Neutrophils % (A) 90 %; Platelet Count 202 k/uL (150-450); RBC 4.45 m/uL (4.30-5.90); RDW 18.2 % (11.5-15.5); WBC 12.8 k/uL (3.8-10.6)
[2019-02-13 05:24] LABS: Magnesium 1.6 mg/dL (1.6-2.3); Phosphorus 3.5 mg/dL (2.5-4.5)
[2019-02-13] MEDS ORDERED: Magnesium Replacement Protocol 1 EACH MISC MISCELLANE PRN (07:42)
[2019-02-13 08:28] LABS: Amorphous Sediment,Urine Rare /hpf; Appearance,Urine Cloudy (Clear); Bacteria,Urine Rare /hpf; Bilirubin,Urine 1+ (Negative); Blood,Urine Moderate (Negative); Color,Urine Orange; Glucose,Urine (UA) Negative (Negative); Hyaline Casts,Urine 3 /lpf (0-2); Ketones,Urine Negative (Negative); Leukocyte Esterase,Urine Large (Negative); Mucus,Urine Rare /hpf; Nitrite,Urine Negative (Negative); PH, Urine 5.5 (5.0-8.0); Protein,Urine 1+ (Negative); RBC,Urine 12 /hpf (0-5); Squamous Epithelial Cell,Urine 1 /hpf (0-4)
[2019-02-13] MEDS ORDERED: PANTOPRAZOLE 40 MG/10 ML VIAL IV SCH (09:00)
[2019-02-13] MEDS: MAGNESIUM SULFATE-D5W PMX 1 GM in DEXTROSE/WATER 1 100ML.BAG IVPB SCH ×2 (09:51→12:11)
[2019-02-13] MEDS ORDERED: NYSTATIN 100,000 UNIT/GM POWD 15 GM TOPICAL PRN (10:09)
[2019-02-13] MEDS ORDERED: AMMONIUM LACTATE 12% LOTION 225 GM BTL TOPICAL PRN (10:09)
[2019-02-13] MEDS ORDERED: SODIUM CHLORIDE 0.9% 2,000 ML IV ONE (10:15)
[2019-02-13] MEDS: FERROUS SULFATE 325 MG TAB PO SCH ×2 (11:12→20:25)
[2019-02-13] MEDS: HEPARIN SODIUM,PORCINE 5,000 UNIT/ML 1 ML VIAL SQ SCH ×2 (11:12→17:02)
[2019-02-13] MEDS: ALLOPURINOL 300 MG TAB PO SCH (11:12)
[2019-02-13] MEDS: HYDROcodone/APAP 10-325MG 1 EACH TAB PO PRN ×2 (11:13→18:29)
--- NOTE | 2019-02-13 11:25 | US ---
EXAMINATION TYPE: US scrotum with doppler. Grayscale and color Doppler Duplex imaging performed of t he scrotum. DATE OF EXAM: 02/13/2019 COMPARISON: NONE CLINICAL HISTORY: scrotal swelling. 600lb+ ICU patient with extreme scrotal swelling for 6-7 weeks, s epsis and uti currently EXAM MEASUREMENTS: TESTICLES: Right Testicle: 4.2 x 3.1 x 2.3 cm Left Testicle: 3.9 x 3.1 x 2.2 cm EPIDIDYMIS HEAD: Right Epididymis: not discernable Left Epididymis: not discernable Doppler performed to assess for testicular vascularity; good bilateral color flow and waveforms are s een. There is no evidence of testicular torsion. Extensive viscous fluid seen within scrotal sac, moderate hydroceles surrounding bilateral testicles, unable to discern any epididymal tissue. IMPRESSION: Extensive scrotal edema and skin thickening may relate to fluid overload or cellulitis. M oderate bilateral hydroceles are also seen.
[2019-02-13] MEDS: LEVOTHYROXINE 75 MCG TAB PO SCH (12:12)
[2019-02-13] MEDS: PIPERACILLIN-TAZOBACTAM 3.375 GM in SODIUM CHLORIDE 0.9% 100 ML IVPB SCH ×2 (12:13→20:25)
--- NOTE | 2019-02-13 12:42 | P.GSCN ---
History of Present Illness Consult date: 02/13/19 Reason for Consult: Urinary retention and possible scrotal cellulitis with sepsis History of present illness: The patient is a 53-year-old male with super morbid obesity admitted through the emergency room last night for evaluation of possible sepsis. He says he's had a history of progressive swelling in his scrotum which dates back 5-7 weeks. He describes having an outpatient ultrasound performed at home and was told that he had some fluid adjacent to the testicles. He says that he's had more testicular pain recently. He is had no fever. He has a history of congestive heart failure with severe peripheral edema which is predominantly in his legs. He is bed bound and incontinent of urine because his penis is not visible due to his obesity and scrotal swelling. The patient was noted to be afebrile in the emergency room and has remained afebrile. His lactic acid was 1.7. His white blood count was 12,800. A voided urinalysis was obtained in the emergency room but was clearly contaminated with fluid and material from the penis and scrotum. Attempts were made by the nurses to insert a catheter but this proved impossible as the penis was not visible. I was asked to see the patient for further evaluation. Review of Systems - Constitutional Reports chronic pain, Reports fatigue, Denies fever - Cardiovascular Reports edema, Denies shortness of breath - Gastrointestinal Denies abdominal pain - Genitourinary Reports as per HPI Past Medical History Past Medical History: Atrial Fibrillation, Diabetes Mellitus, GERD/Reflux, Hypertension, Renal Disease, Skin Disorder Additional Past Medical History / Comment(s): Lymphedema, cellulitis; Hx of Dialysis; ?renal disease; Hx of GI Bleed related to coumadin, wound left calf History of Any Multi-Drug Resistant Organisms: MRSA, Other MDRO Year Discovered:: 08/21/17 MDRO Source:: leg rt Past Surgical History: Orthopedic Surgery Additional Past Surgical History / Comment(s): bilateral feet surgery. per patient had pins in his feet. Past Anesthesia/Blood Transfusion Reactions: No Reported Reaction Past Psychological History: Anxiety Smoking Status: Former smoker Past Alcohol Use History: Occasional Past Drug Use History: None Reported - Past Family History Father Family Medical History: Diabetes Mellitus Additional Family Medical History / Comment(s): both legs amputated due to blood clots Mother Additional Family Medical History / Comment(s): lost both of legs, blood clot surgeries, stent in leg, carotid endardectomy Medications and Allergies Home Medications Medication Instructions Recorded Confirmed Type Hydrocodone/Acetaminophen [Driscoll 1 tab PO Q6H PRN 10/12/16 02/12/19 History 10-325] Pantoprazole Sodium [Protonix] 40 mg PO DAILY #30 tablet. 11/10/16 02/12/19 Rx Furosemide [Lasix] 20 mg PO DAILY 08/15/17 02/12/19 History Allopurinol [Zyloprim] 300 mg PO DAILY 10/21/18 02/12/19 History Ammonium Lactate Lotion 1 applic TOPICAL BID PRN 10/21/18 02/12/19 History [Lac-Hydrin 12% Lotion] Ergocalciferol (Vitamin D2) 50,000 unit PO MO 10/21/18 02/12/19 History [Drisdol] Ferrous Sulfate [Feosol] 325 mg PO BID 10/21/18 02/12/19 History Levothyroxine Sodium [Synthroid] 75 mcg PO DAILY 10/21/18 02/12/19 History sitaGLIPtin [Januvia] 25 mg PO DAILY 10/21/18 02/12/19 History Metoprolol Tartrate [Lopressor] 50 mg PO BID 02/12/19 02/12/19 History Nystatin [Nystop] 1 applic TOPICAL BID PRN 02/12/19 02/12/19 History Allergies Allergy/AdvReac Type Severity Reaction Status Date / Time warfarin [From Coumadin] AdvReac caused GI Verified 02/12/19 21:29 bleed, affected kidney function wool AdvReac Unknown Verified 02/12/19 21:29 Surgical - Exam Vital Signs Pulse Ox 90 L 02/12/19 20:58 - General well developed, no distress, other (Severe moribund obesity) - ENT no hearing loss - Respiratory normal respiratory effort - Abdomen Abdomen: soft, non tender, no organomegaly Hernia: none - Genitourinary other (There is marked bilateral scrotal edema with elevation of the scrotum over the penis so the penis is not visible. The edema is so severe that I was unable to palpate the glans penis with my index finger. Neither testicle could be palpated due to the scrotal edema. There are no areas of fluctuance in the scrotum and no areas of skin breakdown.) Severe bilateral edema in the legs extending up into the buttocks and genital region. Chronic venous stasis changes in the skin with possible areas of cellulitis. Results - Labs 02/13/19 04:49 02/13/19 04:49 Abnormal Lab Results - Last 24 Hours (Table) 02/12/19 02/12/19 02/12/19 Range/Units 21:55 21:55 21:55 WBC 12.4 H (3.8-10.6) k/uL RBC 4.10 L (4.30-5.90) m/uL Hgb 12.2 L (13.0-17.5) gm/dL MCHC 30.4 L (31.0-37.0) g/dL RDW 18.2 H (11.5-15.5) % Neutrophils # 11.5 H (1.3-7.7) k/uL Lymphocytes # 0.5 L (1.0-4.8) k/uL PT 14.8 H (9.0-12.0) sec INR 1.5 H (<1.2) Sodium 134 L (137-145) mmol/L Chloride 108 H (98-107) mmol/L Carbon Dioxide 20 L (22-30) mmol/L BUN 41 H (9-20) mg/dL Creatinine 2.24 H (0.66-1.25) mg/dL Glucose 121 H (74-99) mg/dL POC Glucose (mg/dL) (75-99) mg/dL Calcium 7.1 L (8.4-10.2) mg/dL Total Bilirubin 3.2 H (0.2-1.3) mg/dL ALT 14 L (21-72) U/L Total Protein 5.3 L (6.3-8.2) g/dL Albumin 2.2 L (3.5-5.0) g/dL Urine Protein (Negative) Urine Blood (Negative) Urine Bilirubin (Negative) Ur Leukocyte Esterase (Negative) Urine RBC (0-5) /hpf Urine WBC (0-5) /hpf Urine WBC Clumps (None) /hpf Amorphous Sediment (None) /hpf Urine Bacteria (None) /hpf Hyaline Casts (0-2) /lpf Urine Mucus (None) /hpf 02/13/19 02/13/19 02/13/19 Range/Units 00:10 03:11 04:49 WBC 12.8 H (3.8-10.6) k/uL RBC (4.30-5.90) m/uL Hgb 12.6 L (13.0-17.5) gm/dL MCHC 28.6 L (31.0-37.0) g/dL RDW 18.2 H (11.5-15.5) % Neutrophils # 11.5 H (1.3-7.7) k/uL Lymphocytes # 0.7 L (1.0-4.8) k/uL PT (9.0-12.0) sec INR (<1.2) Sodium (137-145) mmol/L Chloride (98-107) mmol/L Carbon Dioxide (22-30) mmol/L BUN (9-20) mg/dL Creatinine (0.66-1.25) mg/dL Glucose (74-99) mg/dL POC Glucose (mg/dL) 124 H (75-99) mg/dL Calcium (8.4-10.2) mg/dL Total Bilirubin (0.2-1.3) mg/dL ALT (21-72) U/L Total Protein (6.3-8.2) g/dL Albumin (3.5-5.0) g/dL Urine Protein 1+ H (Negative) Urine Blood (Negative) Urine Bilirubin 1+ H (Negative) Ur Leukocyte Esterase Large H (Negative) Urine RBC (0-5) /hpf Urine WBC 43 H (0-5) /hpf Urine WBC Clumps Few H (None) /hpf Amorphous Sediment (None) /hpf Urine Bacteria Rare H (None) /hpf Hyaline Casts 4 H (0-2) /lpf Urine Mucus Rare H (None) /hpf 02/13/19 02/13/19 Range/Units 04:49 08:13 WBC (3.8-10.6) k/uL RBC (4.30-5.90) m/uL Hgb (13.0-17.5) gm/dL MCHC (31.0-37.0) g/dL RDW (11.5-15.5) % Neutrophils # (1.3-7.7) k/uL Lymphocytes # (1.0-4.8) k/uL PT (9.0-12.0) sec INR (<1.2) Sodium 135 L (137-145) mmol/L Chloride 109 H (98-107) mmol/L Carbon Dioxide 17 L (22-30) mmol/L BUN 42 H (9-20) mg/dL Creatinine 2.44 H (0.66-1.25) mg/dL Glucose 129 H (74-99) mg/dL POC Glucose (mg/dL) (75-99) mg/dL Calcium 7.0 L (8.4-10.2) mg/dL Total Bilirubin (0.2-1.3) mg/dL ALT (21-72) U/L Total Protein (6.3-8.2) g/dL Albumin (3.5-5.0) g/dL Urine Protein 1+ H (Negative) Urine Blood Moderate H (Negative) Urine Bilirubin 1+ H (Negative) Ur Leukocyte Esterase Large H (Negative) Urine RBC 12 H (0-5) /hpf Urine WBC 68 H (0-5) /hpf Urine WBC Clumps Few H (None) /hpf Amorphous Sediment Rare H (None) /hpf Urine Bacteria Rare H (None) /hpf Hyaline Casts 3 H (0-2) /lpf Urine Mucus Rare H (None) /hpf Microbiology - Last 24 Hours (Table) 02/13/19 00:10 Urine Culture - Preliminary Urine,Voided Diabetes panel 02/12/19 02/13/19 Range/Units 21:55 04:49 Sodium 134 L 135 L (137-145) mmol/L Potassium 3.7 4.0 (3.5-5.1) mmol/L Chloride 108 H 109 H (98-107) mmol/L Carbon Dioxide 20 L 17 L (22-30) mmol/L BUN 41 H 42 H (9-20) mg/dL Creatinine 2.24 H 2.44 H (0.66-1.25) mg/dL Glucose 121 H 129 H (74-99) mg/dL Calcium 7.1 L 7.0 L (8.4-10.2) mg/dL AST 19 (17-59) U/L ALT 14 L (21-72) U/L Alkaline Phosphatase 118 (38-126) U/L Total Protein 5.3 L (6.3-8.2) g/dL Albumin 2.2 L (3.5-5.0) g/dL Calcium panel 02/12/19 02/13/19 Range/Units 21:55 04:49 Calcium 7.1 L 7.0 L (8.4-10.2) mg/dL Phosphorus 3.5 (2.5-4.5) mg/dL Albumin 2.2 L (3.5-5.0) g/dL Pituitary panel 02/12/19 02/13/19 Range/Units 21:55 04:49 Sodium 134 L 135 L (137-145) mmol/L Potassium 3.7 4.0 (3.5-5.1) mmol/L Chloride 108 H 109 H (98-107) mmol/L Carbon Dioxide 20 L 17 L (22-30) mmol/L BUN 41 H 42 H (9-20) mg/dL Creatinine 2.24 H 2.44 H (0.66-1.25) mg/dL Glucose 121 H 129 H (74-99) mg/dL Calcium 7.1 L 7.0 L (8.4-10.2) mg/dL Adrenal panel 02/12/19 02/13/19 Range/Units 21:55 04:49 Sodium 134 L 135 L (137-145) mmol/L Potassium 3.7 4.0 (3.5-5.1) mmol/L Chloride 108 H 109 H (98-107) mmol/L Carbon Dioxide 20 L 17 L (22-30) mmol/L BUN 41 H 42 H (9-20) mg/dL Creatinine 2.24 H 2.44 H (0.66-1.25) mg/dL Glucose 121 H 129 H (74-99) mg/dL Calcium 7.1 L 7.0 L (8.4-10.2) mg/dL Total Bilirubin 3.2 H (0.2-1.3) mg/dL AST 19 (17-59) U/L ALT 14 L (21-72) U/L Alkaline Phosphatase 118 (38-126) U/L Total Protein 5.3 L (6.3-8.2) g/dL Albumin 2.2 L (3.5-5.0) g/dL Assessment and Plan (1) Scrotal edema Narrative/Plan: The patient has severe scrotal edema which appears to be part of his general peripheral edema. I do not believe the patient has an underlying cellulitis involving the scrotum. Scrotal ultrasound was performed this morning and shows bilateral hydroceles but no evidence of abscess. Scrotal skin is diffusely thickened consistent with underlying edema Current Visit: Yes Status: Acute Code(s): N50.89 - OTHER SPECIFIED DISORDERS OF THE MALE GENITAL ORGANS SNOMED Code(s): 01604126 (2) Urinary tract infection Narrative/Plan: The patient's urinalysis in the emergency room was clearly contaminated by skin material as the patient is unable to obtain a clean catch specimen due to his severe genital edema. I was able to insert a 12-Greenlandic Mcknight catheter with the use of the cystoscope and urine draining from the bladder was concentrated but grossly clear. This specimen was sent for culture and sensitivity Current Visit: Yes Status: Acute Code(s): N39.0 - URINARY TRACT INFECTION, SITE NOT SPECIFIED SNOMED Code(s): 63825898
--- NOTE | 2019-02-13 12:45 | P.OP ---
Date of Procedure: 02/13/19 Preoperative Diagnosis: Scrotal edema with inability to insert Mcknight catheter Postoperative Diagnosis: Scrotal edema with inability to insert Mcknight catheter and possible urethral stricture Procedure(s) Performed: Cystoscopy with placement of Mcknight catheter Anesthesia: none Surgeon: Willie Alfaro Pathology: none sent Condition: stable Disposition: ICU Indications for Procedure: Patient's a 53-year-old male admitted due to marked scrotal edema. Placement of a Mcknight catheter to monitor the patient's urine output was attempted but could not be performed due to the severe edema. Cystoscopy will be used to visualize the urethral meatus Description of Procedure: The patient was supine in his ICU bed. The region of the penis and scrotum was prepped with Betadine solution. It is impossible to visualize the glans or palpate the glans with an index finger due to the severe edema. The 16-Cambodian flexible cystoscope was passed through the opening in the scrotum and down to the glans. The urethral meatus was identified. The cystoscope was advanced part way through the urethra but would not advance further due to some slight narrowing. A 0.035 straight Glidewire was passed through the cystoscope and into the bladder. The cystoscope was withdrawn. I initially attempted to pass a 16-Cambodian coud catheter over the Glidewire but this proved too painful for the patient. A 12-Cambodian catheter was modified to use fit over the Glidewire and successfully advanced into the bladder. Concentrated but clear urine drained from the catheter. The patient tolerated procedure well.
[2019-02-13 12:50] LABS: Glucose,Whole Blood 139 mg/dL (75-99)
[2019-02-13] MEDS ORDERED: SODIUM CHLORIDE 0.9% 1,000 ML IV ONE (13:15)
[2019-02-13] MEDS: INSULIN ASPART (NovoLOG) 100 UNIT/ML VIAL SQ SCH ×3 (13:22→20:35)
[2019-02-13] MEDS: NOREPINEPHRINE 4 MG in SODIUM CHLORIDE 0.9% 250 ML IV SCH ×3 (13:26→23:35)
[2019-02-13 17:13] LABS: Glucose,Whole Blood 109 mg/dL (75-99)
--- NOTE | 2019-02-13 17:51 | P.CNPUL ---
History of Present Illness Consult date: 02/13/19 Chief complaint: Hypotension, sepsis History of present illness: This is a morbidly obese 53-year-old male patient who came into the emergency de partment yesterday because of scrotal pain and swelling. At the same time the patient looked to be quite dehydrated and hypotensive and he was suspected to be and septic shock. In the emergency department, the patient was given 10 a half liters of IV fluids. Following that, he continued to be hypotensive with a lower systolic blood pressure and based on that the patient was started on norepinephrine infusion. Earlier this morning. Norepinephrine infusion was running at 15 mics per minute.. The patient was still having hypotension and the patient was maintained on a fluid infusion rate of 100 mL an hour. A Mcknight catheter was inserted by urology. This was a very difficult insertion. A cystoscope was used to insert the catheter. The patient had a swollen testicle and a very sunken penis with the penile orifice was not adequately visualized. Ultimately the catheter was inserted and only 50 mL of urine output was obtained. Urine was was possibly infected knowing that there was increased white cell count and clumps and bacteria. It was sent for cultures. The patient has very large lower extremities and they are lymphedematous and there is chronic ulceration in lower oximetry is bilaterally. He has been followed up at the wound center. Among his chronic wounds, there is a area and the lateral aspect of the right lower extremity was quite macerated and there is a patch of purulent material covering the wound surface and this area is estimated to be around 3 cm in size. There is another area of stage II to 3 ulcer in the right lower posterior scalp area which is smaller and the bases pretty healthy without any purulent material. The scrotum was quite swollen and there is extensive erythema extending to the upper thigh areas bilaterally. No open wounds or sores. No crepitation. Chest palpated in that area. Left lower extremity has chronic ulceration yet none of these ulcers showed any active infection. The patient also has some excoriation and redness in his buttocks area related to chronic immobility as the patient is nonambulatory at this point in time. He was covered with a combination of Zosyn and vancomycin. Aquacel silver was applied to the right lower extremity wounds and ID consultation was obtained. The patient meanwhile had an ultrasound of the scrotum that showed evidence of fluid versus cellulitis. The patient stated that he was feeling chilled and feverish at home. No documented temperature for now. He denies having any ches t pain. No shortness of breath. No nausea. No vomiting. No diarrhea. No constipation. No altered mentation. Family is at the bedside. Unfortunately, while doing his routine bathing, the Mcknight catheter. A mild and currently does not have a Mcknight catheter in place. In terms of his blood work, his white cell count is at 12.8. His lactic acid level is down to 1.7. His creatinine is abnormal at 2.4. The patient has chronic a to for kidney disease. He has a component of non-anion gap metabolic acidosis with a serum bicarb of 7. Based on his previous records, the patient has had infections with gram-negative and MVR oh including pseudomonal infections in the urine, wound infections including Enterobacter, Proteus and enterococcus faecalis and Klebsiella and Morganella morganii and Acinetobacter Review of Systems Constitutional: Reports daytime sleepiness, Reports fever, Reports lethargy, Reports weakness, Reports weight gain Eyes: denies blurred vision, denies bulging eye, denies decreased vision Ears: deny: decreased hearing, ear discharge, earache, tinnitus Ears, nose, mouth and throat: Denies headache, Denies sore throat Cardiovascular: Reports as per HPI (The patient is nonambulatory for now. No shortness of breath at rest.), Reports edema (Lymphedema of the lower extremities bilaterally), Reports irregular heart beat Respiratory: Reports as per HPI Gastrointestinal: Reports as per HPI Genitourinary: Reports as per HPI, Reports erectile dysfunction, Reports genital pain, Reports incontinence, Reports testicular pain Musculoskeletal: Reports gait dysfunction, Reports limitation of motion, Reports muscle weakness Musculoskeletal: bilateral: ankle pain, ankle stiffness, ankle swelling Integumentary: Reports color changes, Reports darkening of skin, Reports dryness, Reports rash, Reports wounds Neurological: Reports gait dysfunction, Reports lack of coordination, Reports motor disturbance, Reports weakness Psychiatric: Reports as per HPI Endocrine: Reports as per HPI Hematologic/Lymphatic: Reports as per HPI Allergic/Immunologic: Reports as per HPI Past Medical History Past Medical History: Atrial Fibrillation, Diabetes Mellitus, GERD/Reflux, Hypertension, Renal Disease, Skin Disorder Additional Past Medical History / Comment(s): Bleed related to coumadin, chronic lymphedema, bilateral lower extremity wounds, history of chronic atrial fibrillation, history of GI bleeding related to Coumadin therapy, chronic lymphedema of the lower extremities, morbid obesity with a BMI of 75, chronic kidney disease stage 3-4, hypertension, diabetes mellitus, history of MRSA and multidrug resistant organism infection including gram-negative infections. Hypothyroidism History of Any Multi-Drug Resistant Organisms: MRSA, Other MDRO Date of last positivie culture/infection: 08/21/17 MDRO Source:: leg rt Past Surgical History: Orthopedic Surgery Additional Past Surgical History / Comment(s): bilateral feet surgery. per patient had pins in his feet. Past Anesthesia/Blood Transfusion Reactions: No Reported Reaction Past Psychological History: Anxiety Smoking Status: Former smoker Past Alcohol Use History: Occasional Past Drug Use History: None Reported - Past Family History Father Family Medical History: Diabetes Mellitus Additional Family Medical History / Comment(s): both legs amputated due to blood clots Mother Additional Family Medical History / Comment(s): lost both of legs, blood clot surgeries, stent in leg, carotid endardectomy Medications and Allergies Home Medications Medication Instructions Recorded Confirmed Type Hydrocodone/Acetaminophen [[place] 1 tab PO Q6H PRN 10/12/16 02/12/19 History 10-325] Pantoprazole Sodium [Protonix] 40 mg PO DAILY #30 tablet. 11/10/16 02/12/19 Rx Furosemide [Lasix] 20 mg PO DAILY 08/15/17 02/12/19 History Allopurinol [Zyloprim] 300 mg PO DAILY 10/21/18 02/12/19 History Ammonium Lactate Lotion 1 applic TOPICAL BID PRN 10/21/18 02/12/19 History [Lac-Hydrin 12% Lotion] Ergocalciferol (Vitamin D2) 50,000 unit PO MO 10/21/18 02/12/19 History [Drisdol] Ferrous Sulfate [Feosol] 325 mg PO BID 10/21/18 02/12/19 History Levothyroxine Sodium [Synthroid] 75 mcg PO DAILY 10/21/18 02/12/19 History sitaGLIPtin [Januvia] 25 mg PO DAILY 10/21/18 02/12/19 History Metoprolol Tartrate [Lopressor] 50 mg PO BID 02/12/19 02/12/19 History Nystatin [Nystop] 1 applic TOPICAL BID PRN 02/12/19 02/12/19 History Allergies Allergy/AdvReac Type Severity Reaction Status Date / Time warfarin [From Coumadin] AdvReac caused GI Verified 02/12/19 21:29 bleed, affected kidney function wool AdvReac Unknown Verified 02/12/19 21:29 Physical Exam Vitals: Vital Signs Temp Pulse Pulse Resp BP Pulse Ox 02/13/19 17:00 87 13 103/55 93 L 02/13/19 16:00 97.4 F L 85 100/57 87 L 02/13/19 15:42 96 02/13/19 15:00 83 18 100/57 92 L 02/13/19 14:00 89 13 106/68 94 L 02/13/19 13:00 90 19 88/70 91 L 02/13/19 12:00 97.9 F 88 13 104/68 96 02/13/19 11:00 80 17 109/69 96 02/13/19 10:00 96 86/67 92 L 02/13/19 09:00 97.8 F 97 22 96/69 93 L 02/13/19 08:00 102 H 13 94/74 94 L 02/13/19 07:51 94 L 02/13/19 07:00 97 15 85/61 93 L 02/13/19 06:02 98 12 107/62 94 L 02/13/19 02:57 94 19 96/72 95 02/13/19 02:20 99 19 96/72 94 L 02/13/19 02:00 93 18 101/71 94 L 02/13/19 01:40 91 16 97/68 94 L 02/13/19 01:20 81 19 100/71 94 L 02/13/19 01:19 85 23 100/71 94 L 02/13/19 01:05 99 19 83/54 02/13/19 01:00 111 H 14 78/53 02/13/19 00:40 94 12 81/58 02/13/19 00:31 98.2 F 93 23 81/58 95 02/13/19 00:20 94 17 76/44 02/13/19 00:13 83/54 94 L 02/13/19 00:00 91 92/43 02/12/19 23:40 93 71/49 90 L 02/12/19 23:30 94 21 92/48 95 02/12/19 23:20 106 H 17 80/50 94 L 02/12/19 23:15 89 22 80/50 95 02/12/19 23:00 101 H 13 74/54 89 L 02/12/19 22:40 101 H 13 78/51 93 L 02/12/19 22:30 92 20 84/50 94 L 02/12/19 22:20 94 15 89/64 92 L 02/12/19 22:00 119 H 02/12/19 21:20 95/68 02/12/19 21:04 99.1 F 119 H 20 95/68 91 L 02/12/19 21:00 89/66 88 L 02/12/19 20:58 90 L Intake and Output 02/13/19 02/13/19 02/13/19 06:59 14:59 22:59 Intake Total 800 2055.301 100 Output Total 205 Balance 800 1850.301 100 Intake: IV 800 800 100 Sodium Chloride 0.9% 1, 700 100 000 ml @ 100 mls/hr IV . Q10H [facility] Rx#:[id number] Vancomycin 2,000 mg In 800 100 Sodium Chloride 0.9% 500 ml 500 ml @ 167 mls/hr IVPB ONCE STA Rx#: [id number] Intake, IV Titration 1255.301 Amount Magnesium Sulfate-D5w Pmx 100 1 gm In Dextrose/Water 1 100ml.bag @ 100 mls/hr IVPB Q1H [facility] Rx#: [id number] Norepinephrine 4 mg In 55.301 Sodium Chloride 0.9% 250 ml @ 0.05 MCG/KG/MIN 51. 846 mls/hr IV .Q4H54M [facility] Rx#:[id number] Piperacillin-Tazobactam 3 100 .375 gm In Sodium Chloride 0.9% 100 ml @ 25 mls/hr IVPB Q8H [facility] Rx#: [id number] Sodium Chloride 0.9% 1, 1000 000 ml @ 999 mls/hr IV . Q1H1M [facility] Rx#:[id number] Output: Urine 205 Other: Voiding Method Diaper Diaper General appearance: alert, in no apparent distress, the patient, nonacute distal distress, currently [place] 75 Head exam was generally normal. There was no scleral icterus or corneal arcus. Mucous membranes were moist. Neck was supple and without jugular venous distension, thyromegaly, or carotid bruits. Carotids were easily palpable bilaterally. There was no adenopathy. Eye exam: Present: normal appearance, PERRL, EOMI. Absent: scleral icterus, conjunctival injection, periorbital swelling ENT exam: Present: normal exam, mucous membranes moist, the patient has poor dentition and several missing teeth Respiratory exam: Present: normal lung sounds bilaterally. Absent: respiratory distress, wheezes, rales, rhonchi, stridor Cardiovascular Exam: Present: normal rhythm, tachycardia, normal heart sounds. Absent: systolic murmur, diastolic murmur, rubs, gallop, clicks GI/Abdominal exam: Present: soft, normal bowel sounds. Absent: distended, tenderness, guarding, rebound, rigid exam: Present: scrotal swelling (Severe), in addition to erythema involving the scrotal area extending to the thighs bilaterally and the area is warm and red. Testicles are patch and palpation. No masses. Extremities exam: Present: full ROM, normal capillary refill, other (Bilateral lower legs are edematous and weeping). Absent: normal inspection, tenderness, pedal edema, joint swelling, calf tenderness Neurological exam: Present: alert, oriented X3, CN II-XII intact Psychiatric exam: Present: normal affect, normal mood Skin exam: Present: warm, dry, intact, normal color. The patient has chronic lymphedema lower extremities bilaterally. The patient has a over the lateral aspect of the right lower extremity addition to a and stage II to 3 wound in the posterior aspect of the base of which is clean. The wound in the left lower extremity are quite superficial and noninfected this point in time. Results - Laboratory Findings CBC and BMP: 02/13/19 04:49 02/13/19 04:49 PT/INR, D-dimer PT 14.8 sec (9.0-12.0) H 02/12/19 21:55 INR 1.5 (<1.2) H 02/12/19 21:55 Abnormal lab findings: Abnormal Labs 02/12/19 02/12/19 02/12/19 21:55 21:55 21:55 WBC 12.4 H RBC 4.10 L Hgb 12.2 L MCHC 30.4 L RDW 18.2 H Neutrophils # 11.5 H Lymphocytes # 0.5 L PT 14.8 H INR 1.5 H Sodium 134 L Chloride 108 H Carbon Dioxide 20 L BUN 41 H Creatinine 2.24 H Glucose 121 H POC Glucose (mg/dL) Calcium 7.1 L Total Bilirubin 3.2 H ALT 14 L Total Protein 5.3 L Albumin 2.2 L Urine Protein Urine Blood Urine Bilirubin Ur Leukocyte Esterase Urine RBC Urine WBC Urine WBC Clumps Amorphous Sediment Urine Bacteria Hyaline Casts Urine Mucus 02/13/19 02/13/19 02/13/19 00:10 03:11 04:49 WBC 12.8 H RBC Hgb 12.6 L MCHC 28.6 L RDW 18.2 H Neutrophils # 11.5 H Lymphocytes # 0.7 L PT INR Sodium Chloride Carbon Dioxide BUN Creatinine Glucose POC Glucose (mg/dL) 124 H Calcium Total Bilirubin ALT Total Protein Albumin Urine Protein 1+ H Urine Blood Urine Bilirubin 1+ H Ur Leukocyte Esterase Large H Urine RBC Urine WBC 43 H Urine WBC Clumps Few H Amorphous Sediment Urine Bacteria Rare H Hyaline Casts 4 H Urine Mucus Rare H 02/13/19 02/13/19 02/13/19 04:49 08:13 12:48 WBC RBC Hgb MCHC RDW Neutrophils # Lymphocytes # PT INR Sodium 135 L Chloride 109 H Carbon Dioxide 17 L BUN 42 H Creatinine 2.44 H Glucose 129 H POC Glucose (mg/dL) 139 H Calcium 7.0 L Total Bilirubin ALT Total Protein Albumin Urine Protein 1+ H Urine Blood Moderate H Urine Bilirubin 1+ H Ur Leukocyte Esterase Large H Urine RBC 12 H Urine WBC 68 H Urine WBC Clumps Few H Amorphous Sediment Rare H Urine Bacteria Rare H Hyaline Casts 3 H Urine Mucus Rare H 02/13/19 17:11 WBC RBC Hgb MCHC RDW Neutrophils # Lymphocytes # PT INR Sodium Chloride Carbon Dioxide BUN Creatinine Glucose POC Glucose (mg/dL) 109 H Calcium Total Bilirubin ALT Total Protein Albumin Urine Protein Urine Blood Urine Bilirubin Ur Leukocyte Esterase Urine RBC Urine WBC Urine WBC Clumps Amorphous Sediment Urine Bacteria Hyaline Casts Urine Mucus Assessment and Plan Plan: 1 sepsis with secondary hypotension. Consider scrotal cellulitis extending to the upper thighs. Consider wound infection in the right lower extremity with secondary infection and sepsis. Consider urine tract infection with secondary sepsis. The patient was aggressively resuscitated IV fluids. The patient was given a total of 3 and half liters in the emergency. He was given additional fluid of 2 L. ICU and currently is on a maintenance of 100 mL an hour of normal saline in addition to norepinephrine infusion for blood pressure control. 2 hypotension secondary to above 3 suspect UTI. The patient has been infected with gram-negative and multidrug resistant organisms in the past . 4 low urine output, post insertion and accidental loss of a Mcknight catheter 5 chronic kidney disease stage 3-4 with an acute kidney injury on top of chronic renal failure. Currently unable to measure urine output as the patient is incontinent and the Mcknight catheter has been lost. Urology is aware and another catheter will be inserted first in the morning 6 right lower extremity acted wound 7 chronic ulceration was in lower extremity is bilaterally 8 chronic lymphedema of the lower extremity is bilaterally 9. Obesity with a BMI of 75 10 chronic atrial fibrillation rate controlled not an anticoagulation due to previous episodes of GI bleed 11 hypothyroidism 12 diabetes mellitus 13 hypertension 14 non-anion gap metabolic acidosis of a bicarb of 17 Plan Mina IV fluids with normal state rate of 100 mL an hour. Wean off pressors to maintain a mean artery pressure above 65. Continue Zosyn and vancomycin and awaiting ID consultation for any further antibiotic adjustments based on current microbiology and previous microbiology. The patient would have the right lower extremity wound cultures. Urine cultures have been sent. Will need a Mcknight cath to be reinserted. There is obviously in component of scrotal cellulitis. Other sources of infection cannot be ruled out in this patient. Monitor renal function. Outpatient medication been ordered resume. Heparin subcu for DVT prophylaxis. Prognosis poor based on the above-mentioned comorbidities. We'll continue to follow.
[2019-02-13 20:30] LABS: Glucose,Whole Blood 87 mg/dL (75-99)
--- NOTE | 2019-02-13 22:35 | P.CONS ---
History of Present Illness - Reason for Consult Consult date: 02/13/19 - Chief Complaint weakness and scotal pain - History of Present Illness 53-year-old male who has morbid superobesity is brought to Hospital by EMS with a several-day history of worsening symptoms. The patient relates he was having increasing weakness, increasing swelling to his scrotum became much more painful. He also is having increasing pain to his right lower extremity. This is of great interest because the family members are able to a couple times a day get him to stand although briefly so that he can toilet. The right leg became so painful that he was having a hard time standing at all. With these increasing symptoms he agreed to be brought to hospital. He relates he has started to feel slightly better. The scrotum is still painful but less swollen. The right leg is painful but less so. He is not having fevers or chills but often does not. The patient has had full resuscitation with greater then 5 L of normal saline, and has also required epinephrine therapy that is on hold at this time. Review of Systems Patient is at his baseline status and that he is somewhat miserable at all times. Although as per the HPI had increased pain and swelling to the scrotum and the right leg pain. HEENT:Denies headache or acute visual change. Denies sinus or mouth discomforts. Denies neck stiffness or pain. Denies significant oral cavity pain. Denies difficulty on swallowing. Lungs: Denies significant shortness of breath, cough, sputum production, or hemoptysis. Cardiovascular: Denies significant shortness of breath, chest pain, chest wall pain, orthopnea, dyspnea on exertion, syncope Gastrointestinal:Denies nausea, vomiting, diarrhea, constipation, hematemesis, melena, hematochezia. No no significant change of bowel habit noticed. Musculoskeletal: denies significant myalgias or arthralgias. No new joint swelling. Denies new back pain. Skin: Chronic difficulties to the abdominal pannus, the thighs. Has weeping from the lymphedema, and the right leg where he has some skin ulcerations that are being treated by the home care nurse. Neuro: Denies headache or visual change. Denies any new onset weakness or diffi culty with ambulation. Denies falls or seizures. Psychiatric: Chronic anxiety Endocrine: Chronic fatigue and malaise Past Medical History Past Medical History: Atrial Fibrillation, Diabetes Mellitus, GERD/Reflux, Hypertension, Renal Disease, Skin Disorder Additional Past Medical History / Comment(s): Bleed related to coumadin, chronic lymphedema, bilateral lower extremity wounds, history of chronic atrial fibrillation, history of GI bleeding related to Coumadin therapy, chronic lymphedema of the lower extremities, morbid obesity with a BMI of 75, chronic kidney disease stage 3-4, hypertension, diabetes mellitus, history of MRSA and multidrug resistant organism infection including gram-negative infections. Hypothyroidism History of Any Multi-Drug Resistant Organisms: MRSA, Other MDRO Year Discovered:: 08/21/17 MDRO Source:: leg rt Past Surgical History: Orthopedic Surgery Additional Past Surgical History / Comment(s): bilateral feet surgery. per patient had pins in his feet. Past Anesthesia/Blood Transfusion Reactions: No Reported Reaction Past Psychological History: Anxiety Smoking Status: Former smoker Past Alcohol Use History: Occasional Past Drug Use History: None Reported - Past Family History Father Family Medical History: Diabetes Mellitus Additional Family Medical History / Comment(s): both legs amputated due to blood clots Mother Additional Family Medical History / Comment(s): lost both of legs, blood clot surgeries, stent in leg, carotid endardectomy Medications and Allergies Home Medications and Allergies Comment(s): Current Medications Acetaminophen (Tylenol Tab) 650 mg PO Q4HR PRN PRN Reason: Fever and/or Mild Pain Hydrocodone Bitart/Acetaminophen (Tracy 10) 1 each PO Q6H PRN PRN Reason: Pain Last Admin: 02/13/19 18:29 Dose: 1 each Documented by: Allopurinol (Zyloprim) 300 mg PO DAILY [facility] Last Admin: 02/13/19 11:12 Dose: 300 mg Documented by: Ergocalciferol (Vitamin D2) 50,000 unit PO MO [facility] Ferrous Sulfate (Feosol) 325 mg PO BID [facility] Last Admin: 02/13/19 20:25 Dose: 325 mg Documented by: Heparin Sodium (Porcine) (Heparin) 5,000 unit SQ Q8HR [facility] Last Admin: 02/13/19 17:02 Dose: 5,000 unit Documented by: Sodium Chloride (Saline 0.9%) 1,000 mls @ 100 mls/hr IV .Q10H [facility] Last Admin: 02/13/19 20:37 Dose: 100 mls/hr Documented by: Piperacillin Sod/Tazobactam (Sod 3.375 gm/ Sodium Chloride) 100 mls @ 25 mls/hr IVPB Q8H [facility] Last Admin: 02/13/19 20:25 Dose: 25 mls/hr Documented by: Norepinephrine Bitartrate 4 mg (/ Sodium Chloride) 254 mls @ 51.846 mls/hr IV .Q4H54M [facility]; Protocol Last Titration: 02/13/19 20:36 Dose: 0 mcg/kg/min, 0 mls/hr Documented by: Insulin Aspart (Novolog) 0 unit SQ ACHS [facility]; Protocol Last Admin: 02/13/19 20:35 Dose: Not Given Documented by: Lactic Acid (Lac-Hydrin 12%) 1 applic TOPICAL BID PRN PRN Reason: Skin Irritation Levothyroxine Sodium (Synthroid) 75 mcg PO 0630 [facility] Last Admin: 02/13/19 12:12 Dose: 75 mcg Documented by: Miscellaneous Information (Magnesium Per Protocol) 1 each MISCELLANE DAILY PRN; Protocol PRN Reason: Per Protocol Naloxone HCl (Narcan) 0.2 mg IV Q2M PRN PRN Reason: Opioid Reversal Nystatin (Mycostatin Powder) 1 applic TOPICAL BID PRN PRN Reason: Skin Irritation Pantoprazole Sodium (Protonix) 40 mg PO DAILY [facility] Home Medications Medication Instructions Recorded Confirmed Type Hydrocodone/Acetaminophen [Tracy 1 tab PO Q6H PRN 10/12/16 02/12/19 History 10-325] Pantoprazole Sodium [Protonix] 40 mg PO DAILY #30 tablet. 11/10/16 02/12/19 Rx Furosemide [Lasix] 20 mg PO DAILY 08/15/17 02/12/19 History Allopurinol [Zyloprim] 300 mg PO DAILY 10/21/18 02/12/19 History Ammonium Lactate Lotion 1 applic TOPICAL BID PRN 10/21/18 02/12/19 History [Lac-Hydrin 12% Lotion] Ergocalciferol (Vitamin D2) 50,000 unit PO MO 10/21/18 02/12/19 History [Drisdol] Ferrous Sulfate [Feosol] 325 mg PO BID 10/21/18 02/12/19 History Levothyroxine Sodium [Synthroid] 75 mcg PO DAILY 10/21/18 02/12/19 History sitaGLIPtin [Januvia] 25 mg PO DAILY 10/21/18 02/12/19 History Metoprolol Tartrate [Lopressor] 50 mg PO BID 02/12/19 02/12/19 History Nystatin [Nystop] 1 applic TOPICAL BID PRN 02/12/19 02/12/19 History Allergies Allergy/AdvReac Type Severity Reaction Status Date / Time warfarin [From Coumadin] AdvReac caused GI Verified 02/12/19 21:29 bleed, affected kidney function wool AdvReac Unknown Verified 02/12/19 21:29 Physical Exam Vitals: Vital Signs Temp Pulse Resp BP Pulse Ox 02/13/19 21:00 86 18 97/62 95 02/13/19 20:00 97.3 F L 88 13 110/78 97 02/13/19 19:34 96 02/13/19 19:00 88 24 112/63 96 02/13/19 18:00 77 11 L 97/64 96 02/13/19 17:00 87 13 103/55 93 L 02/13/19 16:00 97.4 F L 85 11 L 100/57 87 L 02/13/19 15:42 96 02/13/19 15:00 83 18 100/57 92 L 02/13/19 14:00 89 13 106/68 94 L 02/13/19 13:00 90 19 88/70 91 L 02/13/19 12:00 97.9 F 88 13 104/68 96 02/13/19 11:00 80 17 109/69 96 02/13/19 10:00 96 86/67 92 L 02/13/19 09:00 97.8 F 97 22 96/69 93 L 02/13/19 08:00 102 H 13 94/74 94 L 02/13/19 07:51 94 L 02/13/19 07:00 97 15 85/61 93 L 02/13/19 06:02 98 12 107/62 94 L 02/13/19 02:57 94 19 96/72 95 02/13/19 02:20 99 19 96/72 94 L 02/13/19 02:00 93 18 101/71 94 L 02/13/19 01:40 91 16 97/68 94 L 02/13/19 01:20 81 19 100/71 94 L 02/13/19 01:19 85 23 100/71 94 L 02/13/19 01:05 99 19 83/54 02/13/19 01:00 111 H 14 78/53 02/13/19 00:40 94 12 81/58 02/13/19 00:31 98.2 F 93 23 81/58 95 02/13/19 00:20 94 17 76/44 02/13/19 00:13 83/54 94 L 02/13/19 00:00 91 92/43 02/12/19 23:40 93 71/49 90 L 02/12/19 23:30 94 21 92/48 95 02/12/19 23:20 106 H 17 80/50 94 L 02/12/19 23:15 89 22 80/50 95 02/12/19 23:00 101 H 13 74/54 89 L 02/12/19 22:40 101 H 13 78/51 93 L 02/12/19 22:30 92 20 84/50 94 L 02/12/19 22:20 94 15 89/64 92 L Intake and Output 02/13/19 02/13/19 02/13/19 06:59 14:59 22:59 Intake Total 800 2055.301 959.684 Output Total 205 0 Balance 800 1850.301 959.684 Intake: IV 800 800 800 Piperacillin-Tazobactam 3 100 .375 gm In Sodium Chloride 0.9% 100 ml @ 25 mls/hr IVPB Q8H [facility] Rx#: [id number] Sodium Chloride 0.9% 1, 700 700 000 ml @ 100 mls/hr IV . Q10H [facility] Rx#:[id number] Vancomycin 2,000 mg In 800 100 Sodium Chloride 0.9% 500 ml 500 ml @ 167 mls/hr IVPB ONCE [facility] Rx#: [id number] Intake, IV Titration 1255.301 159.684 Amount Magnesium Sulfate-D5w Pmx 100 1 gm In Dextrose/Water 1 100ml.bag @ 100 mls/hr IVPB Q1H [facility] Rx#: [id number] Norepinephrine 4 mg In 55.301 159.684 Sodium Chloride 0.9% 250 ml @ 0.05 MCG/KG/MIN 51. 846 mls/hr IV .Q4H54M [facility] Rx#:[id number] Piperacillin-Tazobactam 3 100 .375 gm In Sodium Chloride 0.9% 100 ml @ 25 mls/hr IVPB Q8H [facility] Rx#: [id number] Sodium Chloride 0.9% 1, 1000 000 ml @ 999 mls/hr IV . Q1H1M [facility] Rx#:[id number] Output: Urine 205 0 Other: Voiding Method Diaper Diaper Diaper # Voids 1 53-year-old male with superobesity relates it is more comfortable HEENT: Anicteric conjunctiva are pink and moist nasal mucosa grossly intact without significant lesions, there is no thrush. Poor dentition Neck: The neck is supple without significant lymphadenopathy or thyromegaly. Lungs: Good bilateral air entry without significant crackles or wheezing. There is no significant bronchial sounds. There is no egophony or dullness. Heart: Regular rate and rhythm with an audible S1-S2, no S3 no S4. There is no significant murmur click or rub, PMI was nondisplaced. Abdomen: Obese Positive bowel sounds soft and nontender without palpable masses or organomegaly. There was no guarding or rebound. Extremities: The upper extremities do not have any lesions in the IV site left arm is about troubles. The right lobe [place] shows evidence of the chronic lymphedema. He has small areas that we put on the thigh and a blue pad is in place to catch the drainage. The right calf and the lateral surfaces of his the 2 ulcerations and please see the nursing documentation regarding his 2 ulcers. Left leg has evidence of lymphedema with some drainage on the thigh. Lymphedema drainage is not unusual for him. The scrotum is very swollen and is somewhat tender. Upon evaluation there were no open ulcerations just some moisture from losing. Has moisture in the fold under the large abdominal pannus. Neuro: Awake alert oriented to person place and time. There are no acute new gross focal sensory motor deficits. Results CBC & Chem 7: 02/13/19 04:49 02/13/19 04:49 Labs: Abnormal Lab Results - Last 24 Hours (Table) 02/12/19 02/12/19 02/12/19 Range/Units 21:55 21:55 21:55 WBC 12.4 H (3.8-10.6) k/uL RBC 4.10 L (4.30-5.90) m/uL Hgb 12.2 L (13.0-17.5) gm/dL MCHC 30.4 L (31.0-37.0) g/dL RDW 18.2 H (11.5-15.5) % Neutrophils # 11.5 H (1.3-7.7) k/uL Lymphocytes # 0.5 L (1.0-4.8) k/uL PT 14.8 H (9.0-12.0) sec INR 1.5 H (<1.2) Sodium 134 L (137-145) mmol/L Chloride 108 H (98-107) mmol/L Carbon Dioxide 20 L (22-30) mmol/L BUN 41 H (9-20) mg/dL Creatinine 2.24 H (0.66-1.25) mg/dL Glucose 121 H (74-99) mg/dL POC Glucose (mg/dL) (75-99) mg/dL Calcium 7.1 L (8.4-10.2) mg/dL Total Bilirubin 3.2 H (0.2-1.3) mg/dL ALT 14 L (21-72) U/L Total Protein 5.3 L (6.3-8.2) g/dL Albumin 2.2 L (3.5-5.0) g/dL Urine Protein (Negative) Urine Blood (Negative) Urine Bilirubin (Negative) Ur Leukocyte Esterase (Negative) Urine RBC (0-5) /hpf Urine WBC (0-5) /hpf Urine WBC Clumps (None) /hpf Amorphous Sediment (None) /hpf Urine Bacteria (None) /hpf Hyaline Casts (0-2) /lpf Urine Mucus (None) /hpf 02/13/19 02/13/19 02/13/19 Range/Units 00:10 03:11 04:49 WBC 12.8 H (3.8-10.6) k/uL RBC (4.30-5.90) m/uL Hgb 12.6 L (13.0-17.5) gm/dL MCHC 28.6 L (31.0-37.0) g/dL RDW 18.2 H (11.5-15.5) % Neutrophils # 11.5 H (1.3-7.7) k/uL Lymphocytes # 0.7 L (1.0-4.8) k/uL PT (9.0-12.0) sec INR (<1.2) Sodium (137-145) mmol/L Chloride (98-107) mmol/L Carbon Dioxide (22-30) mmol/L BUN (9-20) mg/dL Creatinine (0.66-1.25) mg/dL Glucose (74-99) mg/dL POC Glucose (mg/dL) 124 H (75-99) mg/dL Calcium (8.4-10.2) mg/dL Total Bilirubin (0.2-1.3) mg/dL ALT (21-72) U/L Total Protein (6.3-8.2) g/dL Albumin (3.5-5.0) g/dL Urine Protein 1+ H (Negative) Urine Blood (Negative) Urine Bilirubin 1+ H (Negative) Ur Leukocyte Esterase Large H (Negative) Urine RBC (0-5) /hpf Urine WBC 43 H (0-5) /hpf Urine WBC Clumps Few H (None) /hpf Amorphous Sediment (None) /hpf Urine Bacteria Rare H (None) /hpf Hyaline Casts 4 H (0-2) /lpf Urine Mucus Rare H (None) /hpf 02/13/19 02/13/19 02/13/19 Range/Units 04:49 08:13 12:48 WBC (3.8-10.6) k/uL RBC (4.30-5.90) m/uL Hgb (13.0-17.5) gm/dL MCHC (31.0-37.0) g/dL RDW (11.5-15.5) % Neutrophils # (1.3-7.7) k/uL Lymphocytes # (1.0-4.8) k/uL PT (9.0-12.0) sec INR (<1.2) Sodium 135 L (137-145) mmol/L Chloride 109 H (98-107) mmol/L Carbon Dioxide 17 L (22-30) mmol/L BUN 42 H (9-20) mg/dL Creatinine 2.44 H (0.66-1.25) mg/dL Glucose 129 H (74-99) mg/dL POC Glucose (mg/dL) 139 H (75-99) mg/dL Calcium 7.0 L (8.4-10.2) mg/dL Total Bilirubin (0.2-1.3) mg/dL ALT (21-72) U/L Total Protein (6.3-8.2) g/dL Albumin (3.5-5.0) g/dL Urine Protein 1+ H (Negative) Urine Blood Moderate H (Negative) Urine Bilirubin 1+ H (Negative) Ur Leukocyte Esterase Large H (Negative) Urine RBC 12 H (0-5) /hpf Urine WBC 68 H (0-5) /hpf Urine WBC Clumps Few H (None) /hpf Amorphous Sediment Rare H (None) /hpf Urine Bacteria Rare H (None) /hpf Hyaline Casts 3 H (0-2) /lpf Urine Mucus Rare H (None) /hpf 02/13/19 Range/Units 17:11 WBC (3.8-10.6) k/uL RBC (4.30-5.90) m/uL Hgb (13.0-17.5) gm/dL MCHC (31.0-37.0) g/dL RDW (11.5-15.5) % Neutrophils # (1.3-7.7) k/uL Lymphocytes # (1.0-4.8) k/uL PT (9.0-12.0) sec INR (<1.2) Sodium (137-145) mmol/L Chloride (98-107) mmol/L Carbon Dioxide (22-30) mmol/L BUN (9-20) mg/dL Creatinine (0.66-1.25) mg/dL Glucose (74-99) mg/dL POC Glucose (mg/dL) 109 H (75-99) mg/dL Calcium (8.4-10.2) mg/dL Total Bilirubin (0.2-1.3) mg/dL ALT (21-72) U/L Total Protein (6.3-8.2) g/dL Albumin (3.5-5.0) g/dL Urine Protein (Negative) Urine Blood (Negative) Urine Bilirubin (Negative) Ur Leukocyte Esterase (Negative) Urine RBC (0-5) /hpf Urine WBC (0-5) /hpf Urine WBC Clumps (None) /hpf Amorphous Sediment (None) /hpf Urine Bacteria (None) /hpf Hyaline Casts (0-2) /lpf Urine Mucus (None) /hpf Microbiology - Last 24 Hours (Table) 02/13/19 00:10 Urine Culture - Preliminary Urine,Voided Laboratory Results WBC 12.8 k/uL (3.8-10.6) H 02/13/19 04:49 RBC 4.45 m/uL (4.30-5.90) 02/13/19 04:49 Hgb 12.6 gm/dL (13.0-17.5) L 02/13/19 04:49 Hct 44.1 % (39.0-53.0) 02/13/19 04:49 MCV 99.2 fL (80.0-100.0) 02/13/19 04:49 MCH 28.4 pg (25.0-35.0) 02/13/19 04:49 MCHC 28.6 g/dL (31.0-37.0) L 02/13/19 04:49 RDW 18.2 % (11.5-15.5) H 02/13/19 04:49 Plt Count 202 k/uL (150-450) 02/13/19 04:49 Neutrophils % 90 % 02/13/19 04:49 Lymphocytes % 6 % 02/13/19 04:49 Monocytes % 3 % 02/13/19 04:49 Eosinophils % 1 % 02/13/19 04:49 Basophils % 0 % 02/13/19 04:49 Neutrophils # 11.5 k/uL (1.3-7.7) H 02/13/19 04:49 Lymphocytes # 0.7 k/uL (1.0-4.8) L 02/13/19 04:49 Monocytes # 0.3 k/uL (0-1.0) 02/13/19 04:49 Eosinophils # 0.1 k/uL (0-0.7) 02/13/19 04:49 Basophils # 0.0 k/uL (0-0.2) 02/13/19 04:49 Hypochromasia Marked 02/13/19 04:49 Anisocytosis Slight 02/13/19 04:49 Macrocytosis Slight 02/13/19 04:49 PT 14.8 sec (9.0-12.0) H 02/12/19 21:55 INR 1.5 (<1.2) H 02/12/19 21:55 APTT 26.4 sec (22.0-30.0) 02/12/19 21:55 Sodium 135 mmol/L (137-145) L 02/13/19 04:49 Potassium 4.0 mmol/L (3.5-5.1) 02/13/19 04:49 Chloride 109 mmol/L (98-107) H 02/13/19 04:49 Carbon Dioxide 17 mmol/L (22-30) L 02/13/19 04:49 Anion Gap 9 mmol/L 02/13/19 04:49 BUN 42 mg/dL (9-20) H 02/13/19 04:49 Creatinine 2.44 mg/dL (0.66-1.25) H 02/13/19 04:49 Est GFR (CKD-EPI)AfAm 33 (>60 ml/min/1.73 sqM) 02/13/19 04:49 Est GFR (CKD-EPI)NonAf 29 (>60 ml/min/1.73 sqM) 02/13/19 04:49 Glucose 129 mg/dL (74-99) H 02/13/19 04:49 POC Glucose (mg/dL) 87 mg/dL (75-99) 02/13/19 20:29 POC Glu [employer] Ad[employer] ID Leah Lim 02/13/19 20:29 Plasma Lactic Acid [place] 1.7 mmol/L (0.7-2.0) 02/12/19 21:55 Calcium 7.0 mg/dL (8.4-10.2) L 02/13/19 04:49 Phosphorus 3.5 mg/dL (2.5-4.5) 02/13/19 04:49 Magnesium 1.6 mg/dL (1.6-2.3) 02/13/19 04:49 Total Bilirubin 3.2 mg/dL (0.2-1.3) H 02/12/19 21:55 AST 19 U/L (17-59) 02/12/19 21:55 ALT 14 U/L (21-72) L 02/12/19 21:55 Alkaline Phosphatase 118 U/L (38-126) 02/12/19 21:55 Troponin I 0.014 ng/mL (0.000-0.034) 02/13/19 02:30 Total Protein 5.3 g/dL (6.3-8.2) L 02/12/19 21:55 Albumin 2.2 g/dL (3.5-5.0) L 02/12/19 21:55 Urine Color [place] 02/13/19 08:13 Urine Appearance Cloudy (Clear) 02/13/19 08:13 Urine pH 5.5 (5.0-8.0) 02/13/19 08:13 Ur Specific [place] 1.020 (1.001-1.035) 02/13/19 08:13 Urine Protein 1+ (Negative) H 02/13/19 08:13 Urine Glucose (UA) Negative (Negative) 02/13/19 08:13 Urine Ketones Negative (Negative) 02/13/19 08:13 Urine Blood Moderate (Negative) H 02/13/19 08:13 Urine Nitrite Negative (Negative) 02/13/19 08:13 Urine Bilirubin 1+ (Negative) H 02/13/19 08:13 Urine Urobilinogen 3.0 mg/dL (<2.0) 02/13/19 08:13 Ur Leukocyte Esterase Large (Negative) H 02/13/19 08:13 Urine RBC 12 /hpf (0-5) H 02/13/19 08:13 Urine WBC 68 /hpf (0-5) H 02/13/19 08:13 Urine WBC Clumps Few /hpf (None) H 02/13/19 08:13 Ur Squamous Epith Cells 1 /hpf (0-4) 02/13/19 08:13 Amorphous Sediment Rare /hpf (None) H 02/13/19 08:13 Urine Bacteria Rare /hpf (None) H 02/13/19 08:13 Hyaline Casts 3 /lpf (0-2) H 02/13/19 08:13 Urine Mucus Rare /hpf (None) H 02/13/19 08:13 Microbiology Entire Visit 02/13/19 10:35 Leg - Right Wound Culture - Preliminary 02/13/19 00:10 Urine,Voided Urine Culture - Preliminary Assessment and Plan (1) Scrotal edema Current Visit: Yes Status: Acute Code(s): N50.89 - OTHER SPECIFIED DISORDERS OF THE MALE GENITAL ORGANS SNOMED Code(s): 97346030 (2) Urinary tract infection Current Visit: Yes Status: Acute Code(s): N39.0 - URINARY TRACT INFECTION, SITE NOT SPECIFIED SNOMED Code(s): 76825070 (3) Acute on chronic renal failure Current Visit: Yes Status: Acute Code(s): N17.9 - ACUTE KIDNEY FAILURE, UNSPECIFIED; N18.9 - CHRONIC KIDNEY DISEASE, UNSPECIFIED SNOMED Code(s): 233546453 (4) Lymphedema of both lower extremities Narrative/Plan: 53-year-old male with superobesity who is generally homebound and is only able to get out of the house with his extrawide wheelchair in the family van. It however is an endeavor for the family to accomplish this. The patient cannot go to any primary care physician offices and that they do not have equipment to accommodate him. He was seen for several visits the wound healing Center but it was in extreme difficulty with transportation via EMS and constantly is cared for by the visiting physician on a quarterly basis. He does have a home nurse who does help with wound care. The patient does have some ulcerations in the right lateral leg and Aquacel silver is being utilized seems to be helpful. We'll ask for Anselmo so that the lymphedema wraps can be kept in place this works much better for him than Artur wraps. Intra-dry for the folds to try to help treat them dry For pneumonic therapy based on his recent cultures also will be an adequate choice with greatest concern to be a urinary tract infection. Pseudomonas was most recent pathogen. Given his acute on chronic renal failure would avoid further doses of vancomycin at this time. If there is any further concern about MRSA or other resistant gram-positive organisms daptomycin will be considered. The patient is on the appropriate bariatric air bed Dietary consult is in process The patient has had evidence of sepsis with relative hypotension and has been on vasopressor therapy which is now on hold. Hopefully with the current resuscitation efforts he will not require further vasopressor therapy. The source of sepsis is still most likely the urinary system at this time based upon current findings. Of concern is the patient's difficulty with trying to stand because some pain to his right leg. Given his level of discomfort would like to evaluate for thrombus although would not be possible. Current Visit: Yes Status: Acute Code(s): I89.0 - LYMPHEDEMA, NOT ELSEWHERE CLASSIFIED SNOMED Code(s): 01557740905896372 (5) Venous stasis ulcer of right lower leg with edema of right lower leg Current Visit: Yes Status: Acute Code(s): I83.019 - VARICOSE VEINS OF RIGHT LOWER EXTREMITY W ULCER OF UNSP SITE; I83.891 - VARICOSE VEINS OF R LOW EXTREM WITH OTHER COMPLICATIONS; L97.919 - NON-PRS CHRONIC ULC UNSP PRT OF R LOW LEG W UNSP SEVERITY; R60.9 - EDEMA, UNSPECIFIED SNOMED Code(s): 43861429847161303
--- NOTE | 2019-02-13 23:29 | HP ---
HISTORY AND PHYSICAL DATE OF ADMISSION: 02/13/2019 DATE OF SERVICE: 02/13/2019 PRESENTING COMPLAINT: Fever, chills, skin changes. HISTORY OF PRESENTING COMPLAINT: This is a 53-year-old pleasant gentleman follows with visiting physician Dr. Welch. The patient's and son are present. The patient is morbidly obese with a BMI of 75. He has chronic bilateral lower extremity lymphedema and chronic skin changes from the same, including breakdown. Patient has redness and swelling in the scrotal area. Patient's scrotum also has bloated up in the last 2 weeks; rather painful; not really able to make any urine. Earlier today Dr. Alfaro had to come down and use cystoscopy to get a Mcknight catheter inserted. A little bit of concentrated urine was obtained. It was felt to be infected. Subsequently when the patient rolled over the Mcknight catheter did come out. The patient had followed up with Dr. Elias in the wound care center previously but was not really able to keep his appointments because of transport issues because of his body habitus. Patient has been having fever and chills at home. Patient initially was hypotensive and did require Levophed for pressor support and IV fluids. REVIEW OF SYSTEMS: CONSTITUTIONAL: Tired. HEENT: None. RESPIRATORY: Some baseline shortness of breath. CARDIOVASCULAR: None. GASTROINTESTINAL: None. GENITOURINARY: Decreased urine output. MUSCULOSKELETAL: Some pain in the joints. DERMATOLOGICAL: Changes extensive in the groin area, lower extremities, back. LYMPHATICS: As above. PSYCHIATRY: A bit anxious. NEUROLOGICAL: Decreased sensation in the feet. Also there is pain in the inflamed area. PAST MEDICAL HISTORY: 1. Atrial fibrillation. 2. Diabetes. 3. GERD. 4. Hypertension. 5. Renal disease. 6. Bleed from Coumadin. 7. Chronic lymphedema. 8. Bilateral lower extremity wounds. 9. History of chronic atrial fibrillation. 10.GI bleeding due to Coumadin. 11.Chronic kidney disease, stage III to IV. 12.Diabetes mellitus, type 2. 13.History of MRSA. 14.Hypothyroidism. PAST SURGICAL HISTORY: Bilateral foot surgery with pins in his feet. PSYCH HISTORY: Anxiety. SOCIAL HISTORY: . 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 Did smoke in the past. No recreational drugs or alcohol. Stopped smoking 20 years ago. Smoked 2 packs a day for about 20 years. FAMILY HISTORY: Diabetes. HOME MEDICATIONS: 1. Januvia 25 mg a day. 2. Protonix 40 mg a day. 3. Nystatin 1 application topically b.i.d. p.r.n. 4. Lopressor 50 mg b.i.d. 5. Synthroid 75 mcg a day. 6. Asbury 10 one tablet q.6 p.r.n. 7. Lasix 20 mg a day. 8. Iron 325 p.o. b.i.d. 9. Vitamin D2 50,000 units on Sunday. 10.Lac-Hydrin 12% topically b.i.d. p.r.n. 11.Allopurinol 300 mg p.o. daily. ALLERGIES: COUMADIN and WOOL. PHYSICAL EXAMINATION: VITAL SIGNS ON PRESENTATION: Temperature 99.1, pulse 119, respiration 20, blood pressure 89/66, pulse ox 88% on room air. GENERAL APPEARANCE: Morbidly obese. BMI 75. Lying in bed. EYES: Pupils equal. Conjunctivae normal. HEENT: External appearance of nose and ears normal. Oral cavity with some missing dentition. NECK: JVD unable to assess. Mass not palpable. RESPIRATORY: Effort increased. LUNGS: Distant breath sounds. CARDIOVASCULAR: Heart sounds muffled. No murmur. ABDOMEN: Distended, soft. Liver and spleen not palpable. LYMPHATIC: No lymph node palpable in neck or axillae, but bilateral lower extremity lymphedema is present. EXTREMITIES: Bilateral lower extremity extensive lymphedema with areas of inflammation both in the groin, abdominal folds, chapman, upper thigh. Scrotum is greatly enlarged to a size just short of a basketball. Patient's penis is sunk. Area of the scrotum is all inflamed. INVESTIGATIONS: White count 12.8, hemoglobin 12.6, potassium 4, BUN 42, creatinine 2.44. Patient's BUN and creatinine were 41 and 2.24 back on 02/12/2019. ASSESSMENT: 1. Acute severe cellulitis; could be multiple organisms, including that involving the upper thighs, lower abdomen, fat body apron and around the scrotal area causing sepsis, POA. 2. Septic shock on presentation. Patient is requiring IV fluids and pressor support. 3. Morbid obesity with body mass index of 75.0. 4. Chronic medical debility because of morbid obesity. 5. Diabetes mellitus, type 2, on oral hypoglycemic. 6. Gastroesophageal reflux disease. 7. Essential hypertension. 8. Chronic kidney disease, stage III to IV, probably from nephrosclerosis. 9. Chronic bilateral lower extremity wounds. 10.Hypothyroidism. 11.Persistent atrial fibrillation, rate controlled. PLAN: Consultation was requested from Dr. Martinez from Critical Care. Patient was on Levophed earlier. Then Dr. Alfaro from Urology was consulted, who did put in a Mcknight catheter with the help of cystoscopy, but when the patient was rolling off it came out. Close eye will be kept on patient's I&O, though this will be difficult to maintain. Dr. Elias from ID was consulted to look at the skin lesion cellulitis. Other medications are to be resumed. Care was discussed with the patient and family at the bedside. Questions were answered. Will get a nephrology opinion in view of the chronic renal function. MMODL / IJN: [id number] /
[2019-02-14] MEDS: HEPARIN SODIUM,PORCINE 5,000 UNIT/ML 1 ML VIAL SQ SCH ×4 (00:48→23:54)
[2019-02-14] MEDS: HYDROcodone/APAP 10-325MG 1 EACH TAB PO PRN ×3 (00:49→15:21)
[2019-02-14] MEDS ORDERED: VANCOMYCIN 2,500 MG in SODIUM CHLORIDE 0.9% 500 ML 500 ML IVPB SCH (01:00)
[2019-02-14] MEDS: ACETAMINOPHEN TAB 325 MG TAB PO PRN ×2 (02:20→20:10)
[2019-02-14] MEDS: NOREPINEPHRINE 4 MG in SODIUM CHLORIDE 0.9% 250 ML IV SCH ×4 (03:12→20:00)
[2019-02-14] MEDS: PIPERACILLIN-TAZOBACTAM 3.375 GM in SODIUM CHLORIDE 0.9% 100 ML IVPB SCH ×3 (03:12→20:12)
[2019-02-14 05:37] LABS: Anisocytosis Slight; Basophils % (A) 0 %; Eosinophils # (A) 0.3 k/uL (0-0.7); Eosinophils % (A) 3 %; HCT 46.8 % (39.0-53.0); HGB 13.5 gm/dL (13.0-17.5); Hypochromasia Marked; Lymphocytes # (A) 0.6 k/uL (1.0-4.8); Lymphocytes % (A) 6 %; MCH 28.4 pg (25.0-35.0); MCHC 28.9 g/dL (31.0-37.0); MCV 98.2 fL (80.0-100.0); Macrocytosis Slight; Mean Platelet Volume 7.7; Monocytes # (A) 0.2 k/uL (0-1.0); Monocytes % (A) 2 %; Neutrophils # (A) 8.2 k/uL (1.3-7.7); Neutrophils % (A) 87 %; Platelet Count 212 k/uL (150-450); RBC 4.77 m/uL (4.30-5.90); WBC 9.4 k/uL (3.8-10.6)
[2019-02-14 05:47] LABS: Albumin 2.9 g/dL (3.5-5.0); Calcium 8.4 mg/dL (8.4-10.2); Magnesium 2.1 mg/dL (1.6-2.3); Phosphorus 5.5 mg/dL (2.5-4.5); Potassium 4.6 mmol/L (3.5-5.1); Total Bilirubin 2.5 mg/dL (0.2-1.3); Total Protein 6.6 g/dL (6.3-8.2)
[2019-02-14] MEDS: LEVOTHYROXINE 75 MCG TAB PO SCH (06:36)
[2019-02-14] MEDS: SODIUM CHLORIDE 0.9% 1,000 ML IV SCH ×2 (06:37→09:49)
[2019-02-14 07:24] LABS: Glucose,Whole Blood 113 mg/dL (75-99)
[2019-02-14] MEDS: INSULIN ASPART (NovoLOG) 100 UNIT/ML VIAL SQ SCH ×4 (07:27→21:04)
--- NOTE | 2019-02-14 08:38 | XR ---
EXAMINATION TYPE: XR chest 1V DATE OF EXAM: 02/14/2019 COMPARISON: 02/13/2019 HISTORY: Shortness of breath TECHNIQUE: Single frontal view of the chest is obtained. FINDINGS: Heart is enlarged there is left lower lobe consolidation. Diffuse interstitial pattern is seen and there is pleural thickening greater on the right. No sizable pneumothorax. Subsegmental mckenzie ges right lung base. IMPRESSION: Bilateral lower lobe infiltrate with the increased interstitial pattern and cardiomegaly . Correlate for pneumonia versus CHF.
--- NOTE | 2019-02-14 08:43 | US ---
EXAMINATION TYPE: US venous doppler duplex LE RT DATE OF EXAM: 02/14/2019 7:55 AM COMPARISON: NONE CLINICAL HISTORY: Deep venous thrombosis right leg. SIDE PERFORMED: Right TECHNIQUE: The lower extremity deep venous system is examined utilizing real time linear array sonog cristian with graded compression, doppler sonography and color-flow sonography. VESSELS IMAGED: External Iliac Vein (EIV) Common Femoral Vein Greater Saphenous Vein * Femoral Vein Very large patient body habitus. There is extensive skin thickening and edema extremely limiting visu alization. Unable to see distal FV or POP vn. Right Leg: NEGATIVE for DVT as visualized. Only color imaging performed at groin and to the mid FV. Patient unable to tolerate compression imaging. Only images of the external iliac vein, common femora l and portions of the superficial femoral vein were obtained. No compression views are submitted. IMPRESSION: 1. Limited exam as discussed above. Compression views could not be performed and therefore diagnostic assessment is suboptimal. Grossly as visualized on color imaging no intraluminal filling defect. Cor relate clinically.
[2019-02-14] MEDS: ALLOPURINOL 300 MG TAB PO SCH (09:17)
[2019-02-14] MEDS: PANTOPRAZOLE 40 MG TABLET PO SCH (09:17)
[2019-02-14] MEDS: FERROUS SULFATE 325 MG TAB PO SCH ×2 (09:17→20:13)
[2019-02-14] MEDS ORDERED: HYDROmorphone 1 MG/ML 1 ML SYRINGE IVP STA (11:28)
[2019-02-14] MEDS: DEXTROSE 5% IN WATER 1,000 ML with SODIUM BICARB (1 MEQ/ML) 150 ML IV SCH (11:57)
[2019-02-14 12:02] LABS: Glucose,Whole Blood 115 mg/dL (75-99)
[2019-02-14] MEDS ORDERED: LIDOCAINE URO-JET JELLY 2% 5 ML KIT URETHRAL ONE (14:25)
--- NOTE | 2019-02-14 15:12 | P.PN ---
Subjective Progress Note Date: 02/14/19 This is a morbidly obese 53-year-old male patient who came into the emergency department yesterday because of scrotal pain and swelling. At the same time the patient looked to be quite dehydrated and hypotensive and he was suspected to be and septic shock. In the emergency department, the patient was given 10 a half liters of IV fluids. Following that, he continued to be hypotensive with a lower systolic blood pressure and based on that the patient was started on norepinephrine infusion. Earlier this morning. Norepinephrine infusion was running at 15 mics per minute.. The patient was still having hypotension and the patient was maintained on a fluid infusion rate of 100 mL an hour. A Mcknight catheter was inserted by urology. This was a very difficult insertion. A cystoscope was used to insert the catheter. The patient had a swollen testicle and a very sunken penis with the penile orifice was not adequately visualized. Ultimately the catheter was inserted and only 50 mL of urine output was obtained. Urine was was possibly infected knowing that there was increased white cell count and clumps and bacteria. It was sent for cultures. The patient has very large lower extremities and they are lymphedematous and there is chronic ulceration in lower oximetry is bilaterally. He has been followed up at the wound center. Among his chronic wounds, there is a area and the lateral aspect of the right lower extremity was quite macerated and there is a patch of purulent material covering the wound surface and this area is estimated to be around 3 cm in size. There is another area of stage II to 3 ulcer in the right lower posterior scalp area which is smaller and the bases pretty healthy without any purulent material. The scrotum was quite swollen and there is extensive erythema extending to the upper thigh areas bilaterally. No open wounds or sores. No crepitation. Chest palpated in that area. Left lower extremity has chronic ulceration yet none of these ulcers showed any active infection. The patient also has some excoriation and redness in his buttocks area related to chronic immobility as the patient is nonambulatory at this point in time. He was covered with a combination of Zosyn and vancomycin. Aquacel silver was applied to the right lower extremity wounds and ID consultation was obtained. The patient meanwhile had an ultrasound of the scrotum that showed evidence of fluid versus cellulitis. The patient stated that he was feeling chilled and feverish at home. No documented temperature for now. He denies having any chest pain. No shortness of breath. No nausea. No vomiting. No diarrhea. No constipation. No altered mentation. Family is at the bedside. Unfortunately, while doing his routine bathing, the Mcknight catheter. A mild and currently does not have a Mcknight catheter in place. In terms of his blood work, his white cell count is at 12.8. His lactic acid level is down to 1.7. His creatinine is abnormal at 2.4. The patient has chronic a to for kidney disease. He has a component of non-anion gap metabolic acidosis with a serum bicarb of 7. Based on his previous records, the patient has had infections with gram-negative and MVR oh including pseudomonal infections in the urine, wound infections including Enterobacter, Proteus and enterococcus faecalis and Klebsiella and Morganella morganii and Acinetobacter 02/14/2019, the patient is awake and alert and following commands and answering questions appropriately. Still on 0.03 g per KG per minute of norepinephrine infusion for blood pressure control. He has developed a component of non-anion gap metabolic acidosis and based on that I'm going to switch him to a bicarb drip infusion. His serum bicarb is 16. His creatinine is up to 2.8 and the patient will obviously need another Mcknight catheter insertion. He was seen by infectious disease. He was kept on a combination of Zosyn and vancomycin. Doppler of the lower extremity was negative for DVT. He is afebrile. Pulse ox is 92% on room air oxygen. White cell count is at 9.4. The patient was seen by infectious disease. Aquacel silver was applied to the right lower extremity wounds. Cellulitis of the scrotal area is also improving. Repeat urine cultures showing Proteus species and final cultures and sensitivities are still pending for now. Objective - Vital Signs Vital signs: Vital Signs Temp 97.8 F 02/14/19 12:00 Pulse 121 H 02/14/19 13:00 Resp 10 L 02/14/19 13:00 BP 85/72 02/14/19 13:00 Pulse Ox 92 L 02/14/19 13:00 Intake & Output 02/13/19 02/14/19 02/14/19 18:59 06:59 18:59 Intake Total 2555.301 1683.725 756.858 Output Total 205 0 Balance 2350.301 1683.725 756.858 Weight 246.8 kg Intake: IV 1300 1300 662.5 Dextrose 5% in Water 1, 225 000 ml @ 75 mls/hr IV . [id number] [facility] with Sodium Bicarb (1 Meq/ml) 150 ml Rx#:[id number] Piperacillin-Tazobactam 3 200 37.5 .375 gm In Sodium Chloride 0.9% 100 ml @ 25 mls/hr IVPB Q8H [facility] Rx#: [id number] Sodium Chloride 0.9% 1, 1200 1100 400 000 ml @ 100 mls/hr IV . Q10H [facility] Rx#:[id number] Vancomycin 2,000 mg In 100 Sodium Chloride 0.9% 500 ml 500 ml @ 167 mls/hr IVPB ONCE STA Rx#: [id number] Intake, IV Titration 1255.301 283.725 94.358 Amount Magnesium Sulfate-D5w Pmx 100 1 gm In Dextrose/Water 1 100ml.bag @ 100 mls/hr IVPB Q1H [facility] Rx#: [id number] Norepinephrine 4 mg In 55.301 283.725 94.358 Sodium Chloride 0.9% 250 ml @ 0.05 MCG/KG/MIN 51. 846 mls/hr IV .[id number] [facility] Rx#:[id number] Piperacillin-Tazobactam 3 100 .375 gm In Sodium Chloride 0.9% 100 ml @ 25 mls/hr IVPB Q8H [facility] Rx#: [id number] Sodium Chloride 0.9% 1, 1000 000 ml @ 999 mls/hr IV . Q1H1M [facility] Rx#:[id number] Oral 100 Output: Urine 205 0 Other: Voiding Method Diaper Diaper Diaper # Voids 1 1 1 - Exam General appearance: alert, in no apparent distress, the patient, nonacute distal distress, currently ND 75 Head exam was generally normal. There was no scleral icterus or corneal arcus. Mucous membranes were moist. Neck was supple and without jugular venous distension, thyromegaly, or carotid bruits. Carotids were easily palpable bilaterally. There was no adenopathy. Eye exam: Present: normal appearance, PERRL, EOMI. Absent: scleral icterus, c onjunctival injection, periorbital swelling ENT exam: Present: normal exam, mucous membranes moist, the patient has poor dentition and several missing teeth Respiratory exam: Present: normal lung sounds bilaterally. Absent: respiratory distress, wheezes, rales, rhonchi, stridor Cardiovascular Exam: Present: normal rhythm, tachycardia, normal heart sounds. Absent: systolic murmur, diastolic murmur, rubs, gallop, clicks GI/Abdominal exam: Present: soft, normal bowel sounds. Absent: distended, t enderness, guarding, rebound, rigid exam: Present: scrotal swelling (Severe), in addition to erythema involving the scrotal area extending to the thighs bilaterally and the area is warm and red. Testicles are patch and palpation. No masses. Extremities exam: Present: full ROM, normal capillary refill, other (Bilateral lower legs are edematous and weeping). Absent: normal inspection, tenderness, pedal edema, joint swelling, calf tenderness Neurological exam: Present: alert, oriented X3, CN II-XII intact Psychiatric exam: Present: normal affect, normal mood Skin exam: Present: warm, dry, intact, normal color. The patient has chronic lymphedema lower extremities bilaterally. The patient has a over the lateral aspect of the right lower extremity addition to a and stage II to 3 wound in the posterior aspect of the base of which is clean. The wound in the left lower extremity are quite superficial and noninfected this point in time. - Labs CBC & Chem 7: 02/14/19 04:55 02/14/19 04:55 Labs: Abnormal Lab Results - Last 24 Hours (Table) 02/13/19 02/14/19 02/14/19 Range/Units 17:11 04:55 04:55 MCHC 28.9 L (31.0-37.0) g/dL RDW 18.0 H (11.5-15.5) % Neutrophils # 8.2 H (1.3-7.7) k/uL Lymphocytes # 0.6 L (1.0-4.8) k/uL Sodium 133 L (137-145) mmol/L Carbon Dioxide 16 L (22-30) mmol/L BUN 47 H (9-20) mg/dL Creatinine 2.80 H (0.66-1.25) mg/dL Glucose 122 H (74-99) mg/dL POC Glucose (mg/dL) 109 H (75-99) mg/dL Phosphorus 5.5 H (2.5-4.5) mg/dL Total Bilirubin 2.5 H (0.2-1.3) mg/dL ALT 12 L (21-72) U/L Alkaline Phosphatase 170 H (38-126) U/L Albumin 2.9 L (3.5-5.0) g/dL 02/14/19 02/14/19 Range/Units 07:22 12:00 MCHC (31.0-37.0) g/dL RDW (11.5-15.5) % Neutrophils # (1.3-7.7) k/uL Lymphocytes # (1.0-4.8) k/uL Sodium (137-145) mmol/L Carbon Dioxide (22-30) mmol/L BUN (9-20) mg/dL Creatinine (0.66-1.25) mg/dL Glucose (74-99) mg/dL POC Glucose (mg/dL) 113 H 115 H (75-99) mg/dL Phosphorus (2.5-4.5) mg/dL Total Bilirubin (0.2-1.3) mg/dL ALT (21-72) U/L Alkaline Phosphatase (38-126) U/L Albumin (3.5-5.0) g/dL Microbiology - Last 24 Hours (Table) 02/13/19 00:10 Urine Culture - Final Urine,Voided Proteus Species 02/13/19 10:35 Gram Stain - Preliminary Leg - Right Wound Culture - Preliminary 02/12/19 23:05 Blood Culture - Preliminary Blood No Growth after 24 hours Assessment and Plan Plan: 1 sepsis with secondary hypotension. Consider scrotal cellulitis extending to the upper thighs. Consider wound infection in the right lower extremity with secondary infection and sepsis. Consider urine tract infection with secondary sepsis. The patient was aggressively resuscitated IV fluids. She is on a combination of Zosyn and vancomycin. Urine cultures showing Proteus species. Wound cultures still pending. Currently on a lower dose of norepinephrine infusion. 2 hypotension secondary to above, still requiring pressors and norepinephrine infusion is running at 0.03 g per KG per minute. 3 suspect UTI. The patient has been infected with gram-negative and multidrug r esistant organisms in the past . The repeat urine cultures positive for Proteus 4 low urine output, post insertion and accidental loss of a Mcknight catheter, a Mcknight catheter will be reinserted 5 chronic kidney disease stage 3-4 with an acute kidney injury on top of chronic renal failure. Currently unable to measure urine output as the patient is incontinent and the Mcknight catheter has been lost. Urology is aware and another catheter will be inserted first in the morning 6 right lower extremity acted wound 7 chronic ulceration was in lower extremity is bilaterally 8 chronic lymphedema of the lower extremity is bilaterally 9. Obesity with a BMI of 75 10 chronic atrial fibrillation rate controlled not an anticoagulation due to previous episodes of GI bleed 11 hypothyroidism 12 diabetes mellitus 13 hypertension 14 non-anion gap metabolic acidosis of a bicarb of 16 Plan Switch this patient to a bicarb infusion rate of 75 mL an hour. Awaiting final cultures and sensitivities. Continue same antibiotic coverage. Wound care to the right lower extremity. Continue pressors and gradually wean it off as the patient's blood pressure improves. ID consultation. Urology consultation for reinsertion of the Mcknight catheter. We'll continue to follow.
--- NOTE | 2019-02-14 16:42 | P.OP ---
Date of Procedure: 02/14/19 Preoperative Diagnosis: Urinary retention Postoperative Diagnosis: Same Procedure(s) Performed: Cystoscopy with Mcknight catheter insertion Anesthesia: none Surgeon: Jeffrey Richards Estimated Blood Loss (ml): 0 Pathology: none sent Condition: stable Disposition: PACU Indications for Procedure: The patient is a 53-year-old white male being treated for sepsis. He is receiving Levophed. He has been noted to have renal failure. A Mcknight catheter was required for urine output monitoring. Dr. Alfaro placed a catheter yesterday, but it has fallen out and requires replacement. Operative Findings: Redundant prepuce with preputial edema. Significant distance to bladder neck. Description of Procedure: The patient was placed supine in his hospital bed. The penis appropriately draped sterilely. The urethral meatus could not be visualized due to redundant preputial edema. The flexible cystoscope was passed through the preputial opening. The urethral meatus was identified, and a 0.035 inch Glidewire was passed through the meatus. The cystoscope was then advanced over the Glidewire. The urethra appeared to be of diminished caliber. It was ultimately possible to advance the cystoscope into the bladder. However, the urethral length was greater than a half that the cystoscope barely reached the vesical neck. The Glidewire was advanced into the bladder and coiled within the bladder. The cystoscope was removed. An 11 blade scalpel was used to incise the tip of a 14- [place] coud-tip Mcknight catheter, which was then passed over the wire. The catheter tip did not reach the bladder and less the catheter was advanced as far as possible, such that the "Y" in the catheter was buried at the preputial opening. At this point, the catheter irrigated freely and the balloon was inflated. The catheter was connected to gravity drainage, and 500 mL of clear yellow urine drained from the bladder. A specimen was sent for culture and sensitivity.
[2019-02-14 18:16] LABS: Glucose,Whole Blood 119 mg/dL (75-99)
[2019-02-14 21:04] LABS: Glucose,Whole Blood 120 mg/dL (75-99)
--- NOTE | 2019-02-14 22:10 | PN ---
PROGRESS NOTE DATE OF SERVICE: 02/14/2019 PRESENTING COMPLAINT: Fever, chills, cellulitis. INTERVAL HISTORY: This morbidly obese gentleman had bilateral lower extremity lymphedema with secondary cellulitis, including that of the scrotum. He presented with a septic picture. He has been on Levophed drip. Late this afternoon Dr. Richards used a cystoscope to thread another Mcknight catheter. The patient is still somewhat inflamed in the thigh and the scrotal area, scrotum being rather enlarged. REVIEW OF SYSTEMS: Done for constitutional, cardiovascular, GI, pulmonary; relevant findings as above. CURRENT MEDICATIONS: Reviewed. They include: 1. Bicarbonate drip. 2. Levophed drip. 3. IV Zosyn. PHYSICAL EXAMINATION: Temperature 97.8, pulse 94, respiration 12, blood pressure 97/69, pulse ox 97%. GENERAL APPEARANCE: Sitting up in bed. Awake. EYES: Pupils equal. Conjunctivae normal. NECK: JVD unable to assess. Mass not palpable. RESPIRATORY: Effort increased. LUNGS: Distant breath sounds. CARDIOVASCULAR: Heart sounds muffled. Edema present. ABDOMEN: Distended, soft. Liver and spleen not palpable. LYMPHATIC: Bilateral lower extremity lymphedema. DERMATOLOGICAL: Evidence of cellulitis, both in the groin and scrotal area. Scrotum is grossly enlarged with a Mcknight catheter in place. There is also evidence of chronic skin changes. INVESTIGATIONS: White count 9.4, hemoglobin 13.5, platelets 202, potassium 4.6, BUN 47, creatinine 2.80. Bicarb 16. ASSESSMENT: 1. Acute severe cellulitis; could be multiple organisms involving the thighs, groin area, lower abdomen. 2. Scrotal cellulitis causing sepsis. 3. Septic shock on presentation. Patient requiring IV fluids and Levophed drip. 4. Morbid obesity with body mass index of more than 35. 5. Chronic medical debility because of morbid obesity. 6. Diabetes mellitus, type 2, on oral hypoglycemics. 7. Gastroesophageal reflux disease. 8. Essential hypertension. 9. Chronic kidney disease, stage IV, probably from nephrosclerosis. 10.Chronic bilateral lower extremity wounds. 11.Hypothyroidism. 12.Persistent atrial fibrillation, rate controlled. PLAN: Continue current medication and treatment plan. Topical care as per Dr. Elias. Patient will remain on antibiotics. Patient remains on pressure support. Will follow. MMODL / IJN: [id number] /
[2019-02-15] MEDS: HYDROcodone/APAP 10-325MG 1 EACH TAB PO PRN ×3 (00:24→14:09)
[2019-02-15] MEDS: PIPERACILLIN-TAZOBACTAM 3.375 GM in SODIUM CHLORIDE 0.9% 100 ML IVPB SCH ×3 (03:13→18:16)
[2019-02-15] MEDS: DEXTROSE 5% IN WATER 1,000 ML with SODIUM BICARB (1 MEQ/ML) 150 ML IV SCH ×2 (03:48→18:17)
[2019-02-15 05:30] LABS: Anisocytosis Slight; Basophils % (A) 0 %; Eosinophils # (A) 0.6 k/uL (0-0.7); Eosinophils % (A) 7 %; HGB 12.3 gm/dL (13.0-17.5); Hypochromasia Marked; Lymphocytes # (A) 0.4 k/uL (1.0-4.8); Lymphocytes % (A) 5 %; MCH 28.4 pg (25.0-35.0); MCHC 28.6 g/dL (31.0-37.0); MCV 99.4 fL (80.0-100.0); Macrocytosis Slight; Mean Platelet Volume 8.4; Monocytes # (A) 0.3 k/uL (0-1.0); Monocytes % (A) 4 %; Neutrophils # (A) 6.5 k/uL (1.3-7.7); Neutrophils % (A) 82 %; Platelet Count 177 k/uL (150-450); Poikilocytosis Slight; RBC 4.33 m/uL (4.30-5.90); RDW 18.2 % (11.5-15.5)
[2019-02-15 05:45] LABS: Calcium 8.4 mg/dL (8.4-10.2); Potassium 4.3 mmol/L (3.5-5.1)
[2019-02-15] MEDS: LEVOTHYROXINE 75 MCG TAB PO SCH (06:20)
[2019-02-15 07:13] LABS: Glucose,Whole Blood 121 mg/dL (75-99)
--- NOTE | 2019-02-15 07:23 | XR ---
EXAMINATION TYPE: XR chest 1V DATE OF EXAM: 02/15/2019 COMPARISON: 02/14/2019 INDICATION: Short of breath TECHNIQUE: Single frontal view of the chest is obtained. FINDINGS: The heart size is enlarged. The pulmonary vasculature is normal. Some lower lobe infiltrates. The present stable from comparison. Continued follow-up is recommended IMPRESSION: 1. Bibasilar infiltrates, stable from comparison. Continued follow-up is recommended.
[2019-02-15] MEDS: INSULIN ASPART (NovoLOG) 100 UNIT/ML VIAL SQ SCH ×4 (07:29→21:22)
[2019-02-15] MEDS: PANTOPRAZOLE 40 MG TABLET PO SCH (09:53)
[2019-02-15] MEDS: ALLOPURINOL 300 MG TAB PO SCH (09:53)
[2019-02-15] MEDS: NOREPINEPHRINE 4 MG in SODIUM CHLORIDE 0.9% 250 ML IV SCH ×4 (09:54→18:19)
[2019-02-15] MEDS: FUROSEMIDE 10 MG/ML 10 ML VIAL IV SCH (09:54)
[2019-02-15] MEDS: HEPARIN SODIUM,PORCINE 5,000 UNIT/ML 1 ML VIAL SQ SCH ×2 (09:54→18:16)
[2019-02-15] MEDS: FERROUS SULFATE 325 MG TAB PO SCH ×2 (09:55→21:22)
[2019-02-15 11:57] LABS: Glucose,Whole Blood 120 mg/dL (75-99)
--- NOTE | 2019-02-15 12:03 | P.NPCON ---
History of Present Illness - Reason for Consult Consult date: 02/15/19 acute renal failure - Chief Complaint Acute kidney injury and hypotension - History of Present Illness This is a 53-year-old morbidly obese male who is seen because of acute kidney injury. He does have CK D with creatinine of 2 dated 12/10/2018 and has had 2 episodes of Erica dependent acute kidney injury from which she recovered in the past. He was admitted on 02/12/2019, 3 days ago when he came in with worsening scrotal pain and swelling and worsening chronic edema. He was hypotensive and was fluid resuscitated and also started on levo fed. This has been discontinued this morning. He does have UTI with Proteus, sensitivities are pending. Currently he is awake alert comfortable. Warm to touch but his fingertips have cyanosis. He is in atrial fibrillation blood pressure which is being recorded on his upper arms is in the 70s to 110 range. He is known with chronic atrial fibrillation diabetes mellitus morbid obesity with BMI in the 70s, difficulty with Mcknight catheter that needed urology to do it under cystoscopy. After putting the catheter and is making some urine he has been hydrated. This morning he was given Lasix. In the past she's had 2 episodes of dialysis dependent acute kidney injury. Past Medical History Past Medical History: Atrial Fibrillation, Diabetes Mellitus, GERD/Reflux, Hypertension, Renal Disease, Skin Disorder Additional Past Medical History / Comment(s): Bleed related to coumadin, chronic lymphedema, bilateral lower extremity wounds, history of chronic atrial fibrillation, history of GI bleeding related to Coumadin therapy, chronic lymphedema of the lower extremities, morbid obesity with a BMI of 75, chronic kidney disease stage 3-4, hypertension, diabetes mellitus, history of MRSA and multidrug resistant organism infection including gram-negative infections. Hypothyroidism History of Any Multi-Drug Resistant Organisms: MRSA, Other MDRO Date of last positivie culture/infection: 08/21/17 MDRO Source:: leg rt Past Surgical History: Orthopedic Surgery Additional Past Surgical History / Comment(s): bilateral feet surgery. per patient had pins in his feet. Past Anesthesia/Blood Transfusion Reactions: No Reported Reaction Past Psychological History: Anxiety Smoking Status: Former smoker Past Alcohol Use History: Occasional Past Drug Use History: None Reported - Past Family History Father Family Medical History: Diabetes Mellitus Additional Family Medical History / Comment(s): both legs amputated due to blood clots Mother Additional Family Medical History / Comment(s): lost both of legs, blood clot surgeries, stent in leg, carotid endardectomy Medications and Allergies Home Medications Medication Instructions Recorded Confirmed Type Hydrocodone/Acetaminophen [Cutler 1 tab PO Q6H PRN 10/12/16 02/12/19 History 10-325] Pantoprazole Sodium [Protonix] 40 mg PO DAILY #30 tablet. 11/10/16 02/12/19 Rx Furosemide [Lasix] 20 mg PO DAILY 08/15/17 02/12/19 History Allopurinol [Zyloprim] 300 mg PO DAILY 10/21/18 02/12/19 History Ammonium Lactate Lotion 1 applic TOPICAL BID PRN 10/21/18 02/12/19 History [Lac-Hydrin 12% Lotion] Ergocalciferol (Vitamin D2) 50,000 unit PO MO 10/21/18 02/12/19 History [Drisdol] Ferrous Sulfate [Feosol] 325 mg PO BID 10/21/18 02/12/19 History Levothyroxine Sodium [Synthroid] 75 mcg PO DAILY 10/21/18 02/12/19 History sitaGLIPtin [Januvia] 25 mg PO DAILY 10/21/18 02/12/19 History Metoprolol Tartrate [Lopressor] 50 mg PO BID 02/12/19 02/12/19 History Nystatin [Nystop] 1 applic TOPICAL BID PRN 02/12/19 02/12/19 History Allergies Allergy/AdvReac Type Severity Reaction Status Date / Time warfarin [From Coumadin] AdvReac caused GI Verified 02/12/19 21:29 bleed, affected kidney function wool AdvReac Unknown Verified 02/12/19 21:29 Physical Exam Vitals: Vital Signs Temp Pulse Resp BP Pulse Ox 02/15/19 11:00 97 11 L 75/57 94 L 02/15/19 10:00 125 H 18 80/46 96 02/15/19 09:00 125 H 10 L 86/57 93 L 02/15/19 08:00 97.5 F L 116 H 17 113/69 91 L 02/15/19 07:30 118 H 18 100/60 96 02/15/19 07:00 124 H 16 125/80 95 02/15/19 06:30 130 H 16 80/61 95 02/15/19 06:00 114 H 18 96/63 97 02/15/19 05:30 108 H 16 100/61 98 02/15/19 05:00 104 H 18 79/55 94 L 02/15/19 04:30 115 H 16 73/51 92 L 02/15/19 04:00 97.7 F 120 H 18 97/57 94 L 02/15/19 03:30 103 H 16 83/61 95 02/15/19 03:00 100 20 77/62 94 L 02/15/19 02:30 115 H 16 81/56 94 L 02/15/19 02:00 122 H 20 122/68 92 L 02/15/19 01:30 120 H 16 86/61 94 L 02/15/19 01:00 110 H 18 80/58 92 L 02/15/19 00:30 133 H 20 90/55 93 L 02/15/19 00:00 97.7 F 110 H 18 113/72 92 L 02/14/19 23:30 115 H 16 105/72 95 02/14/19 23:00 117 H 16 110/86 90 L 02/14/19 22:30 99 16 106/58 93 L 02/14/19 22:00 110 H 20 99/60 95 02/14/19 21:30 97 16 113/59 96 02/14/19 21:00 99 18 101/61 97 02/14/19 20:30 115 H 20 103/61 96 02/14/19 20:00 97.6 F 115 H 18 116/91 98 02/14/19 19:30 20 105/63 95 02/14/19 19:00 121 H 15 103/65 97 02/14/19 18:30 21 114/66 95 02/14/19 18:00 18 114/69 95 02/14/19 17:30 105 H 13 87/72 94 L 02/14/19 17:00 113 H 13 104/73 96 02/14/19 16:30 90 14 110/67 97 02/14/19 16:00 97.8 F 94 14 97/69 97 02/14/19 15:30 113 H 13 105/68 96 02/14/19 15:00 122 H 19 92/56 96 02/14/19 14:30 112 H 18 80/51 94 L 02/14/19 14:00 100 11 L 108/69 91 L 02/14/19 13:30 18 77/58 95 02/14/19 13:00 121 H 10 L 85/72 92 L 02/14/19 12:30 118 H 8 L 94/56 94 L 02/14/19 12:00 97.8 F 128 H 16 110/75 93 L Intake and Output 02/14/19 02/15/19 02/15/19 22:59 06:59 14:59 Intake Total 1442.641 708.295 809.657 Output Total 845 438 800 Balance 597.641 270.295 9.657 Intake: IV 700 700 375 Dextrose 5% in Water 1, 600 600 375 000 ml @ 75 mls/hr IV . [id number] BENITO with Sodium Bicarb (1 Meq/ml) 150 ml Rx#:[id number] Piperacillin-Tazobactam 3 100 100 .375 gm In Sodium Chloride 0.9% 100 ml @ 25 mls/hr IVPB Q8H BENITO Rx#: [id number] Intake, IV Titration 262.641 8.295 74.657 Amount Norepinephrine 4 mg In 262.641 8.295 74.657 Sodium Chloride 0.9% 250 ml @ 0.05 MCG/KG/MIN 51. 846 mls/hr IV .Q4H54M BENITO Rx#:[id number] Oral 480 360 Output: Urine 845 438 800 Other: Voiding Method Indwelling Catheter Indwelling Catheter Indwelling Catheter # Voids 1 Weight 246.7 kg This is a morbidly obese male with BMI in the 70s. He is awake alert oriented Comfortable. HEENT exam no JVP neck is supple no facial asymmetry pupils are equal Lungs are difficult exam because of the morbid obesity but normal lung sounds crackles or wheezing heard. Fair air entry bilaterally Heart sounds are unremarkable is in atrial fibrillation Abdomen is morbidly obese. Extremity exam reveals chronic stasis edema with significant redness all over. He has a huge scrotal and an ultrasound shows hydrocele. Neurologically awake alert oriented. Profoundly weak though. Results - Lab Results Most recent lab results Calcium 8.4 mg/dL (8.4-10.2) 02/15/19 04:49 Phosphorus 5.5 mg/dL (2.5-4.5) H 02/14/19 04:55 Magnesium 2.1 mg/dL (1.6-2.3) 02/14/19 04:55 02/15/19 04:49 02/15/19 04:49 Assessment and Plan Assessment: Patient 1. Acute kidney injury, secondary to possible septic syndrome with UTI with Proteus. Creatinine was 2.8 as of yesterday's count up to 2.82. On admission it was 2.24. 2. Chronic kidney disease with a baseline creatinine of 1.6 in 2017 and 2 on 12/10/2018. Likely from nephrosclerosis. Urinalysis on 02/13/2019 shows 1+ protein. 3. Mild degree of non-gap acidosis with bicarb of 20 and a gap of 6 on admission and currently bicarb is 18 and a gap of 10. Etiology is acute kidney injury and chronic kidney disease. 4. Proteus urinary tract infection. 5. Atrial fibrillation chronic, hypotension. Rule out cardiomyopathy. 6. Significant chronic stasis edema with redness since possible cellulitis 7. Significant scrotal edema and hydrocele. Recommendation 1. Because of the low blood pressure would try to hold off Lasix for a few hours and then reintroduce once we're sure of his blood pressure. 2. Possibly his blood pressure is not being accurately recorded because of morbid obesity of this arm circumferences is reasonable. 3. Recommend obtaining an echocardiogram to see his systolic function and ensure there is no other explanation for his hypotension. 4. If necessary 250-500 mL of IV saline boluses to improve his blood pressure.
--- NOTE | 2019-02-15 13:05 | US ---
EXAMINATION TYPE: US kidneys/renal and bladder DATE OF EXAM: 02/15/2019 COMPARISON: NONE CLINICAL HISTORY: mihai. Renal failure, exam done portable. EXAM MEASUREMENTS: Right Kidney: 12.7 x 7.0 x 6.6 cm Left Kidney: n/a Morbidly obese patient, difficult and extremely limited study, exam done with patient sitting up. Right Kidney: limited visualization Left Kidney: not visualized Bladder: unable to scan bladder area due to patient position There is no ascites. IMPRESSION: Exam is limited markedly.
--- NOTE | 2019-02-15 13:49 | P.PN ---
Subjective Progress Note Date: 02/15/19 This is a morbidly obese 53-year-old male patient who came into the emergency department yesterday because of scrotal pain and swelling. At the same time the patient looked to be quite dehydrated and hypotensive and he was suspected to be and septic shock. In the emergency department, the patient was given 10 a half liters of IV fluids. Following that, he continued to be hypotensive with a lower systolic blood pressure and based on that the patient was started on norepinephrine infusion. Earlier this morning. Norepinephrine infusion was running at 15 mics per minute.. The patient was still having hypotension and the patient was maintained on a fluid infusion rate of 100 mL an hour. A Mcknight catheter was inserted by urology. This was a very difficult insertion. A cystoscope was used to insert the catheter. The patient had a swollen testicle and a very sunken penis with the penile orifice was not adequately visualized. Ultimately the catheter was inserted and only 50 mL of urine output was obtained. Urine was was possibly infected knowing that there was increased white cell count and clumps and bacteria. It was sent for cultures. The patient has very large lower extremities and they are lymphedematous and there is chronic ulceration in lower oximetry is bilaterally. He has been followed up at the wound center. Among his chronic wounds, there is a area and the lateral aspect of the right lower extremity was quite macerated and there is a patch of purulent material covering the wound surface and this area is estimated to be around 3 cm in size. There is another area of stage II to 3 ulcer in the right lower posterior scalp area which is smaller and the bases pretty healthy without any purulent material. The scrotum was quite swollen and there is extensive erythema extending to the upper thigh areas bilaterally. No open wounds or sores. No crepitation. Chest palpated in that area. Left lower extremity has chronic ulceration yet none of these ulcers showed any active infection. The patient also has some excoriation and redness in his buttocks area related to chronic immobility as the patient is nonambulatory at this point in time. He was covered with a combination of Zosyn and vancomycin. Aquacel silver was applied to the right lower extremity wounds and ID consultation was obtained. The patient meanwhile had an ultrasound of the scrotum that showed evidence of fluid versus cellulitis. The patient stated that he was feeling chilled and feverish at home. No documented temperature for now. He denies having any chest pain. No shortness of breath. No nausea. No vomiting. No diarrhea. No constipation. No altered mentation. Family is at the bedside. Unfortunately, while doing his routine bathing, the Mcknight catheter. A mild and currently does not have a Mcknight catheter in place. In terms of his blood work, his white cell count is at 12.8. His lactic acid level is down to 1.7. His creatinine is abnormal at 2.4. The patient has chronic a to for kidney disease. He has a component of non-anion gap metabolic acidosis with a serum bicarb of 7. Based on his previous records, the patient has had infections with gram-negative and MVR oh including pseudomonal infections in the urine, wound infections including Enterobacter, Proteus and enterococcus faecalis and Klebsiella and Morganella morganii and Acinetobacter 02/14/2019, the patient is awake and alert and following commands and answering questions appropriately. Still on 0.03 g per KG per minute of norepinephrine infusion for blood pressure control. He has developed a component of non-anion gap metabolic acidosis and based on that I'm going to switch him to a bicarb drip infusion. His serum bicarb is 16. His creatinine is up to 2.8 and the patient will obviously need another Mcknight catheter insertion. He was seen by infectious disease. He was kept on a combination of Zosyn and vancomycin. Doppler of the lower extremity was negative for DVT. He is afebrile. Pulse ox is 92% on room air oxygen. White cell count is at 9.4. The patient was seen by infectious disease. Aquacel silver was applied to the right lower extremity wounds. Cellulitis of the scrotal area is also improving. Repeat urine cultures showing Proteus species and final cultures and sensitivities are still pending for now. On today's evaluation of 02/15/2019 I'm seeing this patient for a follow-up. The patient is awake and alert. He is currently off pressors. He is on a bicarb drip and his serum bicarbonate is gradually improving. He had a Mcknight catheter reinserted yesterday. His scrotum remains quite swollen. Lower extremity is swollen. The ones are being taken care of locally. He is on a broad-spectrum antibiotics utilizing a combination of Zosyn and vancomycin. Infectious diseases on the case. No nausea. No vomiting. No abdominal pain. No chest pain. Altered mentation. No other significant events overnight. The white cell count is at 8.0. The patient developed an acute kidney injury probably related to an obstructive uropathy knowing that post insertion of a Mcknight catheter was significant urine output. Creatinine is at 2.5 on today's evaluation. Objective - Vital Signs Vital signs: Vital Signs Temp 97.5 F L 02/15/19 08:00 Pulse 97 02/15/19 11:00 Resp 11 L 02/15/19 11:00 BP 75/57 02/15/19 11:00 Pulse Ox 94 L 02/15/19 11:00 Intake & Output 02/14/19 02/15/19 02/15/19 18:59 06:59 18:59 Intake Total 9359.256 5356.936 809.657 Output Total 400 883 800 Balance 998.358 713.936 9.657 Weight 246.7 kg Intake: IV 1050.0 1100 375 Dextrose 5% in Water 1, 600 900 375 000 ml @ 75 mls/hr IV . [id number] BENITO with Sodium Bicarb (1 Meq/ml) 150 ml Rx#:[id number] Piperacillin-Tazobactam 3 50.0 200 .375 gm In Sodium Chloride 0.9% 100 ml @ 25 mls/hr IVPB Q8H BENITO Rx#: [id number] Sodium Chloride 0.9% 1, 400 000 ml @ 100 mls/hr IV . Q10H BENITO Rx#:[id number] Intake, IV Titration 348.358 16.936 74.657 Amount Norepinephrine 4 mg In 348.358 16.936 74.657 Sodium Chloride 0.9% 250 ml @ 0.05 MCG/KG/MIN 51. 846 mls/hr IV .Q4H54M BENITO Rx#:[id number] Oral 480 360 Output: Urine 400 883 800 Other: Voiding Method Indwelling Catheter Indwelling Catheter Indwelling Catheter # Voids 1 - Exam General appearance: alert, in no apparent distress, the patient, nonacute distal distress, currently SC 75 Head exam was generally normal. There was no scleral icterus or corneal arcus. Mucous membranes were moist. Neck was supple and without jugular venous distension, thyromegaly, or carotid bruits. Carotids were easily palpable bilaterally. There was no adenopathy. Eye exam: Present: normal appearance, PERRL, EOMI. Absent: scleral icterus, conjunctival injection, periorbital swelling ENT exam: Present: normal exam, mucous membranes moist, the patient has poor dentition and several missing teeth Respiratory exam: Present: normal lung sounds bilaterally. Absent: respiratory distress, wheezes, rales, rhonchi, stridor Cardiovascular Exam: Present: normal rhythm, tachycardia, normal heart sounds. Absent: systolic murmur, diastolic murmur, rubs, gallop, clicks GI/Abdominal exam: Present: soft, normal bowel sounds. Absent: distended, tenderness, guarding, rebound, rigid exam: Present: scrotal swelling (Severe), in addition to erythema involving the scrotal area extending to the thighs bilaterally and the area is warm and red. Testicles are patch and palpation. No masses. Extremities exam: Present: full ROM, normal capillary refill, other (Bilateral lower legs are edematous and weeping). Absent: normal inspection, tenderness, pedal edema, joint swelling, calf tenderness Neurological exam: Present: alert, oriented X3, CN II-XII intact Psychiatric exam: Present: normal affect, normal mood Skin exam: Present: warm, dry, intact, normal color. The patient has chronic lymphedema lower extremities bilaterally. The patient has a over the lateral aspect of the right lower extremity addition to a and stage II to 3 wound in the posterior aspect of the base of which is clean. The wound in the left lower extremity are quite superficial and noninfected this point in time. - Labs CBC & Chem 7: 02/15/19 04:49 02/15/19 04:49 Labs: Abnormal Lab Results - Last 24 Hours (Table) 02/14/19 02/14/19 02/15/19 Range/Units 18:14 21:02 04:49 Hgb 12.3 L (13.0-17.5) gm/dL MCHC 28.6 L (31.0-37.0) g/dL RDW 18.2 H (11.5-15.5) % Lymphocytes # 0.4 L (1.0-4.8) k/uL Sodium (137-145) mmol/L Carbon Dioxide (22-30) mmol/L BUN (9-20) mg/dL Creatinine (0.66-1.25) mg/dL Glucose (74-99) mg/dL POC Glucose (mg/dL) 119 H 120 H (75-99) mg/dL 02/15/19 02/15/19 02/15/19 Range/Units 04:49 07:11 11:55 Hgb (13.0-17.5) gm/dL MCHC (31.0-37.0) g/dL RDW (11.5-15.5) % Lymphocytes # (1.0-4.8) k/uL Sodium 134 L (137-145) mmol/L Carbon Dioxide 18 L (22-30) mmol/L BUN 50 H (9-20) mg/dL Creatinine 2.82 H (0.66-1.25) mg/dL Glucose 121 H (74-99) mg/dL POC Glucose (mg/dL) 121 H 120 H (75-99) mg/dL Microbiology - Last 24 Hours (Table) 02/14/19 20:05 Urine Culture - Preliminary Urine,Catheterized 02/12/19 23:05 Blood Culture - Preliminary Blood No Growth after 48 hours 02/13/19 10:35 Gram Stain - Preliminary Leg - Right Wound Culture - Preliminary Beta Hemolytic Strep Group G Gram Neg Bacilli 02/13/19 00:10 Urine Culture - Final Urine,Voided Proteus Species Assessment and Plan Plan: 1 sepsis with secondary hypotension. Consider scrotal cellulitis extending to the upper thighs. Consider wound infection in the right lower extremity with secondary infection and sepsis. Consider urine tract infection with secondary sepsis. The patient was aggressively resuscitated IV fluids. She is on a combination of Zosyn and vancomycin. Urine cultures showing Proteus species. Wound cultures still pending. She is currently off pressors. The patient on a bicarb infusion. Hemodynamically improves compared to yesterday. ID is on the case. 2 hypotension secondary to above, improved and stabilized and the patient is currently off pressors. 3 suspect UTI. The patient has been infected with gram-negative and multidrug resistant organisms in the past . The repeat urine cultures positive for Proteus, a repeat urine cultures of been sent 4 low urine output, post insertion and accidental loss of a Mcknight catheter, a Mcknight catheter will be reinserted 5 chronic kidney disease stage 3-4 with an acute kidney injury on top of chronic renal failure. Currently unable to measure urine output as the patient is incontinent and the Mcknight catheter has been lost. Urology is aware and another catheter will be inserted first in the morning. The patient has an acute on top of chronic kidney injury in the creatinine is at 2.8 6 right lower extremity wound 7 chronic ulceration was in lower extremity is bilaterally 8 chronic lymphedema of the lower extremity is bilaterally 9. Obesity with a BMI of 75 10 chronic atrial fibrillation rate controlled not an anticoagulation due to previous episodes of GI bleed 11 hypothyroidism 12 diabetes mellitus 13 hypertension 14 non-anion gap metabolic acidosis of a bicarb of 17 Plan Switch this patient to a bicarb infusion rate of 75 mL an hour. Awaiting final cultures and sensitivities. Continue same antibiotic coverage. Wound care to the right lower extremity. The patient is doing well. The patient is off pressors. He will be started on diuretics knowing that he has developed considerable amount of edema in the lower extremity and the scrotal area. He'll be given 60 mg of IV Lasix 1 and further diuretics are to follow based on his overall response to diuresis. He'll be kept in ICU for now. We'll monitor renal function.
[2019-02-15] MEDS: SODIUM BICARBONATE TAB 650 MG TAB PO SCH ×3 (14:08→21:22)
[2019-02-15 17:22] LABS: Glucose,Whole Blood 110 mg/dL (75-99)
[2019-02-15 20:53] LABS: Glucose,Whole Blood 116 mg/dL (75-99)
[2019-02-15] MEDS: ACETAMINOPHEN TAB 325 MG TAB PO PRN (21:21)
[2019-02-16] MEDS: HEPARIN SODIUM,PORCINE 5,000 UNIT/ML 1 ML VIAL SQ SCH ×4 (00:06→23:51)
[2019-02-16] MEDS: HYDROcodone/APAP 10-325MG 1 EACH TAB PO PRN ×3 (00:07→18:31)
[2019-02-16] MEDS: NOREPINEPHRINE 4 MG in SODIUM CHLORIDE 0.9% 250 ML IV SCH ×5 (02:28→18:03)
[2019-02-16] MEDS: PIPERACILLIN-TAZOBACTAM 3.375 GM in SODIUM CHLORIDE 0.9% 100 ML IVPB SCH ×3 (02:33→18:33)
[2019-02-16 05:19] LABS: Anisocytosis Slight; HCT 38.3 % (39.0-53.0); HGB 11.4 gm/dL (13.0-17.5); Hypochromasia Marked; MCH 29.1 pg (25.0-35.0); MCHC 29.7 g/dL (31.0-37.0); MCV 97.8 fL (80.0-100.0); Macrocytosis Slight; Mean Platelet Volume 8.3; Platelet Count 176 k/uL (150-450); Poikilocytosis Slight; RBC 3.92 m/uL (4.30-5.90); RDW 18.1 % (11.5-15.5); WBC 6.8 k/uL (3.8-10.6)
[2019-02-16 05:31] LABS: Calcium 8.4 mg/dL (8.4-10.2); Potassium 3.9 mmol/L (3.5-5.1)
[2019-02-16] MEDS: LEVOTHYROXINE 75 MCG TAB PO SCH (06:44)
[2019-02-16 06:58] LABS: Glucose,Whole Blood 124 mg/dL (75-99)
--- NOTE | 2019-02-16 07:08 | P.PN ---
Subjective On-call hospitalist covering for Dr. Canas Date of service is 02/15/2019 This is a pleasant 52 years old male with past medical history diabetes m ellitus, atrial fibrillation, GERD, hypertension, morbid obesity, chronic bilateral lower extremity lymphedema for history of GI bleed related to Coumadin therapy, chronic kidney disease. Presents with signs symptoms of cellulitis of the lower extremity and scrotum. Wound culture is growing beta hemolytic streptococci and gram-negative bacilli. Urine culture is positive for Proteus species. He is status post cystoscopy and Mcknight catheter insertion for urinary retention. Patient on antibiotics as per infectious disease recommendation, he is on Zosyn on the day of this service. Also he got doses of vancomycin previously. Blood pressure on the low side. He needed Levothroid previously but now he is off of pressors Objective - Vital Signs Vital signs: Vital Signs Temp 98.4 F 02/16/19 04:00 Pulse 108 H 02/16/19 04:00 Resp 16 02/16/19 04:00 BP 73/61 02/16/19 04:00 Pulse Ox 92 L 02/16/19 04:00 Intake & Output 02/15/19 02/15/19 02/16/19 06:59 18:59 06:59 Intake Total 0573.524 0221.657 1330 Output Total 883 1800 845 Balance 880.297 0594.657 485 Weight 246.7 kg Intake: IV 1100 1000 850 Dextrose 5% in Water 1, 900 900 750 000 ml @ 75 mls/hr IV . [id number] [facility] with Sodium Bicarb (1 Meq/ml) 150 ml Rx#:[id number] Piperacillin-Tazobactam 3 200 100 100 .375 gm In Sodium Chloride 0.9% 100 ml @ 25 mls/hr IVPB Q8H [facility] Rx#: [id number] Intake, IV Titration 16.936 174.657 Amount Norepinephrine 4 mg In 16.936 74.657 Sodium Chloride 0.9% 250 ml @ 0.05 MCG/KG/MIN 51. 846 mls/hr IV .Q4H54M [facility] Rx#:[id number] Piperacillin-Tazobactam 3 100 .375 gm In Sodium Chloride 0.9% 100 ml @ 25 mls/hr IVPB Q8H [facility] Rx#: [id number] Oral 480 1720 480 Output: Urine 883 1800 845 Other: Voiding Method Indwelling Catheter Indwelling Catheter Indwelling Catheter - Exam GENERAL: The patient is alert and oriented x3, not in any acute distress. Morbidly obese HEENT: Pupils are round and equally reacting to light. EOMI. No scleral icterus. No conjunctival pallor. Normocephalic, atraumatic. No pharyngeal erythema. No thyromegaly. CARDIOVASCULAR: S1 and S2 present. No murmurs, rubs, or gallops. PULMONARY: Chest is clear to auscultation, no wheezing or crackles. -ABDOMEN: Soft, nontender, nondistended, normoactive bowel sounds. No palpable organomegaly. Sequential swelling and erythema, tenderness. Mcknight catheter is in a Place MUSCULOSKELETAL: No joint swelling or deformity. -EXTREMITIES: No cyanosis, clubbing, or pedal edema. Extensive swelling and erythema, with yellow scales on top of both lower extremity, the top of his chronic lymphedema NEUROLOGICAL: Gross neurological examination did not reveal any focal deficits. SKIN: No rashes. - Labs CBC & Chem 7: 02/16/19 04:53 02/16/19 04:53 Labs: Abnormal Lab Results - Last 24 Hours (Table) 02/15/19 02/15/19 02/15/19 Range/Units 07:11 11:55 17:20 RBC (4.30-5.90) m/uL Hgb (13.0-17.5) gm/dL Hct (39.0-53.0) % MCHC (31.0-37.0) g/dL RDW (11.5-15.5) % Sodium (137-145) mmol/L BUN (9-20) mg/dL Creatinine (0.66-1.25) mg/dL Glucose (74-99) mg/dL POC Glucose (mg/dL) 121 H 120 H 110 H (75-99) mg/dL U Random Total Protein (<12) mg/dL 02/15/19 02/15/19 02/16/19 Range/Units 18:25 20:52 04:53 RBC 3.92 L (4.30-5.90) m/uL Hgb 11.4 L (13.0-17.5) gm/dL Hct 38.3 L (39.0-53.0) % MCHC 29.7 L (31.0-37.0) g/dL RDW 18.1 H (11.5-15.5) % Sodium (137-145) mmol/L BUN (9-20) mg/dL Creatinine (0.66-1.25) mg/dL Glucose (74-99) mg/dL POC Glucose (mg/dL) 116 H (75-99) mg/dL U Random Total Protein 27 H (<12) mg/dL 02/16/19 Range/Units 04:53 RBC (4.30-5.90) m/uL Hgb (13.0-17.5) gm/dL Hct (39.0-53.0) % MCHC (31.0-37.0) g/dL RDW (11.5-15.5) % Sodium 134 L (137-145) mmol/L BUN 51 H (9-20) mg/dL Creatinine 2.94 H (0.66-1.25) mg/dL Glucose 126 H (74-99) mg/dL POC Glucose (mg/dL) (75-99) mg/dL U Random Total Protein (<12) mg/dL Microbiology - Last 24 Hours (Table) 02/12/19 23:05 Blood Culture - Preliminary Blood No Growth after 72 hours 02/14/19 20:05 Urine Culture - Final Urine,Catheterized Assessment and Plan Assessment: Cellulitis of the lower extremity, more on the right than left with scrotal cellulitis Systemic inflammatory response syndrome with tachycardia, leukocytosis Severe Sepsis secondary to above, with acute kidney injury and hypotension Urinary retention Acute kidney injury on chronic kidney disease History of atrial fibrillation Chronic kidney disease, stage III Morbid obesity Diabetes mellitus Hypertension His history of GERD GI bleed related to Coumadin therapy Plan: This is a pleasant 53 years old male who presents because of cellulitis of the lower extremity and scrotum. Continue with antibiotics as per infectious disease recommendation. Also has been followed by several consultants including the pulmonary/critical care team, corrections officer, and urologist.Labs and medication were reviewed.. Continue same treatment. Continue with symptomatic treatment. Resume home medication. Monitor lytes and vitals. DVT and GI prophylaxis. Further recommendations of the clinical course of the patient DVT prophylaxis: Subcutaneous heparin GI Prophylaxis: Pepcid PT/OT: Pending Prognosis is guarded
[2019-02-16] MEDS: INSULIN ASPART (NovoLOG) 100 UNIT/ML VIAL SQ SCH ×4 (07:36→22:43)
--- NOTE | 2019-02-16 08:27 | XR ---
EXAMINATION TYPE: XR chest 1V DATE OF EXAM: 02/16/2019 COMPARISON: Prior chest x-ray 02/15/2019 HISTORY: Shortness of breath, abnormal chest x-ray, ICU management TECHNIQUE: Single frontal view of the chest is obtained. FINDINGS: Patient is rotated and there are overlying cardiac leads. Heart is likely enlarged. No caleb dent pneumothorax. Difficult to exclude retrocardiac density. Interstitium appears increased. IMPRESSION: Suspect cardiomegaly. There may be component of volume overload or interstitial edema po ssible left lower lobe atelectasis versus pneumonia. Exam somewhat limited technically, follow-up rec ommended.
[2019-02-16] MEDS: FERROUS SULFATE 325 MG TAB PO SCH ×2 (08:52→20:07)
[2019-02-16] MEDS: FUROSEMIDE 10 MG/ML 10 ML VIAL IV SCH (08:52)
[2019-02-16] MEDS: ALLOPURINOL 300 MG TAB PO SCH (08:52)
[2019-02-16] MEDS: PANTOPRAZOLE 40 MG TABLET PO SCH (08:52)
[2019-02-16] MEDS: SODIUM BICARBONATE TAB 650 MG TAB PO SCH ×4 (08:52→22:39)
[2019-02-16] MEDS: DEXTROSE 5% IN WATER 1,000 ML with SODIUM BICARB (1 MEQ/ML) 150 ML IV SCH (08:53)
[2019-02-16] MEDS ORDERED: METOPROLOL TARTRATE 25 MG TAB PO STA (10:11)
--- NOTE | 2019-02-16 11:02 | P.PN ---
Subjective Progress Note Date: 02/16/19 Principal diagnosis: This is a 53-year-old morbidly obese male who is seen because of acute kidney injury. He does have CKD with creatinine of 2 dated 12/10/2018 and has had 2 episodes of Dialysis dependent acute kidney injury from which he recovered in the past. He was admitted on 02/12/2019, 3 days ago when he came in with worsening scrotal pain and swelling and worsening chronic edema. He was hypotensive and was fluid resuscitated and also started on levo fed. This has been discontinued yesterday morning. He does have UTI with Proteus, sensitivities are pending. Currently he is awake alert comfortable. Warm to touch but his fingertips have cyanosis. He is in atrial fibrillation blood pressure which is being recorded on his upper arms is in the 80s to 110 range. His urine output is 2740 on Lasix IV 60 daily He is known with chronic atrial fibrillation diabetes mellitus morbid obesity with BMI in the 70s, difficulty with Mcknight catheter that needed urology to do it under cystoscopy. After putting the catheter and is making some urine he has been hydrated. This morning he was given Lasix. In the past she's had 2 episodes of dialysis dependent acute kidney injury. Objective - Vital Signs Vital signs: Vital Signs Temp 97.7 F 02/16/19 08:00 Pulse 122 H 02/16/19 10:00 Resp 27 H 02/16/19 10:00 BP 88/59 02/16/19 10:00 Pulse Ox 93 L 02/16/19 10:00 Intake & Output 02/15/19 02/16/19 02/16/19 18:59 06:59 18:59 Intake Total 2894.657 1480 745 Output Total 1800 940 665 Balance 1094.657 540 80 Weight 251.7 kg Intake: IV 1000 1000 245 Dextrose 5% in Water 1, 900 900 245 000 ml @ 75 mls/hr IV . [id number] [facility] with Sodium Bicarb (1 Meq/ml) 150 ml Rx#:[id number] Piperacillin-Tazobactam 3 100 100 .375 gm In Sodium Chloride 0.9% 100 ml @ 25 mls/hr IVPB Q8H [facility] Rx#: [id number] Intake, IV Titration 174.657 Amount Norepinephrine 4 mg In 74.657 Sodium Chloride 0.9% 250 ml @ 0.05 MCG/KG/MIN 51. 846 mls/hr IV .Q4H54M [facility] Rx#:[id number] Piperacillin-Tazobactam 3 100 .375 gm In Sodium Chloride 0.9% 100 ml @ 25 mls/hr IVPB Q8H [facility] Rx#: [id number] Oral 1720 480 500 Output: Urine 1800 940 665 Other: Voiding Method Indwelling Catheter Indwelling Catheter Indwelling Catheter Morbidly obese male, HEENT exam no JVP is noted neck is supple no facial asymmetry Lungs are clear to auscultation but difficult exam because of morbid obesity Heart sounds are unremarkable except for atrial fibrillation. Abdomen is obese and difficult to examine nontender. Extremity exam was chronic stasis edema with scaliness and erythema diffusely of both legs. Enlarged scrotum significantly. Neurologically awake alert oriented comfortable - Labs CBC & Chem 7: 02/16/19 04:53 02/16/19 04:53 Labs: Abnormal Lab Results - Last 24 Hours (Table) 02/15/19 02/15/19 02/15/19 Range/Units 11:55 17:20 18:25 RBC (4.30-5.90) m/uL Hgb (13.0-17.5) gm/dL Hct (39.0-53.0) % MCHC (31.0-37.0) g/dL RDW (11.5-15.5) % Sodium (137-145) mmol/L BUN (9-20) mg/dL Creatinine (0.66-1.25) mg/dL Glucose (74-99) mg/dL POC Glucose (mg/dL) 120 H 110 H (75-99) mg/dL U Random Total Protein 27 H (<12) mg/dL 02/15/19 02/16/19 02/16/19 Range/Units 20:52 04:53 04:53 RBC 3.92 L (4.30-5.90) m/uL Hgb 11.4 L (13.0-17.5) gm/dL Hct 38.3 L (39.0-53.0) % MCHC 29.7 L (31.0-37.0) g/dL RDW 18.1 H (11.5-15.5) % Sodium 134 L (137-145) mmol/L BUN 51 H (9-20) mg/dL Creatinine 2.94 H (0.66-1.25) mg/dL Glucose 126 H (74-99) mg/dL POC Glucose (mg/dL) 116 H (75-99) mg/dL U Random Total Protein (<12) mg/dL 02/16/19 Range/Units 06:57 RBC (4.30-5.90) m/uL Hgb (13.0-17.5) gm/dL Hct (39.0-53.0) % MCHC (31.0-37.0) g/dL RDW (11.5-15.5) % Sodium (137-145) mmol/L BUN (9-20) mg/dL Creatinine (0.66-1.25) mg/dL Glucose (74-99) mg/dL POC Glucose (mg/dL) 124 H (75-99) mg/dL U Random Total Protein (<12) mg/dL Microbiology - Last 24 Hours (Table) 02/12/19 23:05 Blood Culture - Preliminary Blood No Growth after 72 hours 02/14/19 20:05 Urine Culture - Final Urine,Catheterized Assessment and Plan Assessment: Patient 1. Acute kidney injury, secondary to possible septic syndrome with UTI with Proteus. Creatinine has slowly gone up from 2.2 on admission to 2.94 this morning likely from low blood pressure. He is on aggressive diuretic regimen with Lasix 60 IV daily. 2. Chronic kidney disease with a baseline creatinine of 1.6 in 2017 and 2 on 12/10/2018. Likely from nephrosclerosis. Urinalysis on 02/13/2019 shows 1+ protein. 3. Mild degree of non-gap acidosis with bicarb of 20 and a gap of 6 on admission and currently bicarb is 23 and a gap of 7 improved. Etiology is acute kidney injury and chronic kidney disease. 4. Proteus urinary tract infection. sensitivities pending 5. Atrial fibrillation chronic, hypotension. Rule out cardiomyopathy. 6. Significant chronic stasis edema with redness possible cellulitis 7. Significant scrotal edema and hydrocele. Recommendation 1. Hold the Lasix because of low blood pressure. 2. echocardiogram to assess cardiac function. 3. Ultrasound of the kidneys was very difficult exam and is incomplete 4. He may need some inotropes if his ejection fraction is poor
[2019-02-16 11:50] LABS: Glucose,Whole Blood 132 mg/dL (75-99)
--- NOTE | 2019-02-16 12:33 | P.PN ---
Subjective Progress Note Date: 02/16/19 This is a morbidly obese 53-year-old male patient who came into the emergency department yesterday because of scrotal pain and swelling. At the same time the patient looked to be quite dehydrated and hypotensive and he was suspected to be and septic shock. In the emergency department, the patient was given 10 a half liters of IV fluids. Following that, he continued to be hypotensive with a lower systolic blood pressure and based on that the patient was started on norepinephrine infusion. Earlier this morning. Norepinephrine infusion was running at 15 mics per minute.. The patient was still having hypotension and the patient was maintained on a fluid infusion rate of 100 mL an hour. A Mcknight catheter was inserted by urology. This was a very difficult insertion. A cystoscope was used to insert the catheter. The patient had a swollen testicle and a very sunken penis with the penile orifice was not adequately visualized. Ultimately the catheter was inserted and only 50 mL of urine output was obtained. Urine was was possibly infected knowing that there was increased white cell count and clumps and bacteria. It was sent for cultures. The patient has very large lower extremities and they are lymphedematous and there is chronic ulceration in lower oximetry is bilaterally. He has been followed up at the wound center. Among his chronic wounds, there is a area and the lateral aspect of the right lower extremity was quite macerated and there is a patch of purulent material covering the wound surface and this area is estimated to be around 3 cm in size. There is another area of stage II to 3 ulcer in the right lower posterior scalp area which is smaller and the bases pretty healthy without any purulent material. The scrotum was quite swollen and there is extensive erythema extending to the upper thigh areas bilaterally. No open wounds or sores. No crepitation. Chest palpated in that area. Left lower extremity has chronic ulceration yet none of these ulcers showed any active infection. The patient also has some excoriation and redness in his buttocks area related to chronic immobility as the patient is nonambulatory at this point in time. He was covered with a combination of Zosyn and vancomycin. Aquacel silver was applied to the right lower extremity wounds and ID consultation was obtained. The patient meanwhile had an ultrasound of the scrotum that showed evidence of fluid versus cellulitis. The patient stated that he was feeling chilled and feverish at home. No documented temperature for now. He denies having any chest pain. No shortness of breath. No nausea. No vomiting. No diarrhea. No constipation. No altered mentation. Family is at the bedside. Unfortunately, while doing his routine bathing, the Mcknight catheter. A mild and currently does not have a Mcknight catheter in place. In terms of his blood work, his white cell count is at 12.8. His lactic acid level is down to 1.7. His creatinine is abnormal at 2.4. The patient has chronic a to for kidney disease. He has a component of non-anion gap metabolic acidosis with a serum bicarb of 7. Based on his previous records, the patient has had infections with gram-negative and MVR oh including pseudomonal infections in the urine, wound infections including Enterobacter, Proteus and enterococcus faecalis and Klebsiella and Morganella morganii and Acinetobacter 02/14/2019, the patient is awake and alert and following commands and answering questions appropriately. Still on 0.03 g per KG per minute of norepinephrine infusion for blood pressure control. He has developed a component of non-anion gap metabolic acidosis and based on that I'm going to switch him to a bicarb drip infusion. His serum bicarb is 16. His creatinine is up to 2.8 and the patient will obviously need another Mcknight catheter insertion. He was seen by infectious disease. He was kept on a combination of Zosyn and vancomycin. Doppler of the lower extremity was negative for DVT. He is afebrile. Pulse ox is 92% on room air oxygen. White cell count is at 9.4. The patient was seen by infectious disease. Aquacel silver was applied to the right lower extremity wounds. Cellulitis of the scrotal area is also improving. Repeat urine cultures showing Proteus species and final cultures and sensitivities are still pending for now. On today's evaluation of 02/15/2019 I'm seeing this patient for a follow-up. The patient is awake and alert. He is currently off pressors. He is on a bicarb drip and his serum bicarbonate is gradually improving. He had a Mcknight catheter reinserted yesterday. His scrotum remains quite swollen. Lower extremity is swollen. The ones are being taken care of locally. He is on a broad-spectrum antibiotics utilizing a combination of Zosyn and vancomycin. Infectious diseases on the case. No nausea. No vomiting. No abdominal pain. No chest pain. Altered mentation. No other significant events overnight. The white cell count is at 8.0. The patient developed an acute kidney injury probably related to an obstructive uropathy knowing that post insertion of a Mcknight catheter was significant urine output. Creatinine is at 2.5 on today's evaluation. on 02/16/2019 I'm seeing this patient for a follow-up. The patient is awake and alert. The patient is currently off pressors. He has been off pressors for the past 24 hours. I'm willing to discontinue the bicarb infusion. He was given a dose of Lasix yesterday 60 mg IV push and responded nicely. Nevertheless, he continues to be in positive fluid balance. He remains to be on IV Zosyn. Mcknight cath is in place. Urine output is adequate for now. Creatinine is stable at 2.9.he is tolerating his diet. No other significant events for now. Widely awake and alert. Objective - Vital Signs Vital signs: Vital Signs Temp 98.0 F 02/16/19 12:00 Pulse 111 H 02/16/19 12:00 Resp 15 02/16/19 12:00 BP 96/64 02/16/19 12:00 Pulse Ox 96 02/16/19 12:00 Intake & Output 02/15/19 02/16/19 02/16/19 18:59 06:59 18:59 Intake Total 2894.657 1480 1365 Output Total 8448 468 7836 Balance 1094.657 540 350 Weight 251.7 kg Intake: IV 1000 1000 365 Dextrose 5% in Water 1, 900 900 265 000 ml @ 75 mls/hr IV . [id number] [facility] with Sodium Bicarb (1 Meq/ml) 150 ml Rx#:[id number] Piperacillin-Tazobactam 3 100 100 100 .375 gm In Sodium Chloride 0.9% 100 ml @ 25 mls/hr IVPB Q8H [facility] Rx#: [id number] Intake, IV Titration 174.657 Amount Norepinephrine 4 mg In 74.657 Sodium Chloride 0.9% 250 ml @ 0.05 MCG/KG/MIN 51. 846 mls/hr IV .Q4H54M [facility] Rx#:[id number] Piperacillin-Tazobactam 3 100 .375 gm In Sodium Chloride 0.9% 100 ml @ 25 mls/hr IVPB Q8H [facility] Rx#: [id number] Oral 0704 634 8524 Output: Urine 8185 499 1598 Other: Voiding Method Indwelling Catheter Indwelling Catheter Indwelling Catheter - Exam General appearance: alert, in no apparent distress, the patient, nonacute distal distress, currently BMI 75 Head exam was generally normal. There was no scleral icterus or corneal arcus. Mucous membranes were moist. Neck was supple and without jugular venous distension, thyromegaly, or carotid bruits. Carotids were easily palpable bilaterally. There was no adenopathy. Eye exam: Present: normal appearance, PERRL, EOMI. Absent: scleral icterus, conjunctival injection, periorbital swelling ENT exam: Present: normal exam, mucous membranes moist, the patient has poor dentition and several missing teeth Respiratory exam: Present: normal lung sounds bilaterally. Absent: respiratory distress, wheezes, rales, rhonchi, stridor Cardiovascular Exam: Present: normal rhythm, tachycardia, normal heart sounds. Absent: systolic murmur, diastolic murmur, rubs, gallop, clicks GI/Abdominal exam: Present: soft, normal bowel sounds. Absent: distended, tenderness, guarding, rebound, rigid exam: Present: scrotal swelling (Severe), in addition to erythema involving the scrotal area extending to the thighs bilaterally and the area is warm and red. Testicles are patch and palpation. No masses. Extremities exam: Present: full ROM, normal capillary refill, other (Bilateral lower legs are edematous and weeping). Absent: normal inspection, tenderness, pedal edema, joint swelling, calf tenderness Neurological exam: Present: alert, oriented X3, CN II-XII intact Psychiatric exam: Present: normal affect, normal mood Skin exam: Present: warm, dry, intact, normal color. The patient has chronic lymphedema lower extremities bilaterally. The patient has a over the lateral aspect of the right lower extremity addition to a and stage II to 3 wound in the posterior aspect of the base of which is clean. The wound in the left lower extremity are quite superficial and noninfected this point in time. - Labs CBC & Chem 7: 02/16/19 04:53 02/16/19 04:53 Labs: Abnormal Lab Results - Last 24 Hours (Table) 0502/15/19 02/15/19 Range/Units 17:20 18:25 20:52 RBC (4.30-5.90) m/uL Hgb (13.0-17.5) gm/dL Hct (39.0-53.0) % MCHC (31.0-37.0) g/dL RDW (11.5-15.5) % Sodium (137-145) mmol/L BUN (9-20) mg/dL Creatinine (0.66-1.25) mg/dL Glucose (74-99) mg/dL POC Glucose (mg/dL) 110 H 116 H (75-99) mg/dL U Random Total Protein 27 H (<12) mg/dL 02/16/19 02/16/19 02/16/19 Range/Units 04:53 04:53 06:57 RBC 3.92 L (4.30-5.90) m/uL Hgb 11.4 L (13.0-17.5) gm/dL Hct 38.3 L (39.0-53.0) % MCHC 29.7 L (31.0-37.0) g/dL RDW 18.1 H (11.5-15.5) % Sodium 134 L (137-145) mmol/L BUN 51 H (9-20) mg/dL Creatinine 2.94 H (0.66-1.25) mg/dL Glucose 126 H (74-99) mg/dL POC Glucose (mg/dL) 124 H (75-99) mg/dL U Random Total Protein (<12) mg/dL 02/16/19 Range/Units 11:49 RBC (4.30-5.90) m/uL Hgb (13.0-17.5) gm/dL Hct (39.0-53.0) % MCHC (31.0-37.0) g/dL RDW (11.5-15.5) % Sodium (137-145) mmol/L BUN (9-20) mg/dL Creatinine (0.66-1.25) mg/dL Glucose (74-99) mg/dL POC Glucose (mg/dL) 132 H (75-99) mg/dL U Random Total Protein (<12) mg/dL Microbiology - Last 24 Hours (Table) 02/12/19 23:05 Blood Culture - Preliminary Blood No Growth after 72 hours 02/14/19 20:05 Urine Culture - Final Urine,Catheterized Assessment and Plan Plan: 1 sepsis with secondary hypotension. Consider scrotal cellulitis extending to the upper thighs. Consider wound infection in the right lower extremity with secondary infection and sepsis. Consider urine tract infection with secondary sepsis. The patient was aggressively resuscitated IV fluids. She is on a combination of Zosyn and vancomycin. Urine cultures showing Proteus species. Wound cultures are showing gram-negative bacillus and bedtime undertake strep group G. The patient is on Zosyn. The patient is currently off pressors. The patient was started on diuresis due to excessive third spacing and edema including legs and scrotum. 2 hypotension secondary to above, recovered and the patient is currently off pressors. The patient will be started on gentle diuresis. 3 suspect UTI. The patient has been infected with gram-negative and multidrug resistant organisms in the past . The repeat urine cultures positive for Proteus, a repeat urine cultures of been sent 4 low urine output, post insertion and accidental loss of a Mcknight catheter, a Mcknight catheter will be reinserted 5 chronic kidney disease stage 3-4 with an acute kidney injury on top of chronic renal failure. Currently unable to measure urine output as the patient is incontinent and the Mcknight catheter has been lost. Urology is aware and another catheter will be inserted first in the morning. The patient has an acute on top of chronic kidney injury in the creatinine is at 2.9 6 right lower extremity wound 7 chronic ulceration was in lower extremity is bilaterally 8 chronic lymphedema of the lower extremity is bilaterally 9. Obesity with a BMI of 75 10 chronic atrial fibrillation rate controlled not an anticoagulation due to previous episodes of GI bleed 11 hypothyroidism 12 diabetes mellitus 13 hypertension 14 non-anion gap metabolic acidosis of a bicarb of 23 Plan discontinue the bicarb drip. Continue IV Lasix.continue antibiotic coverage. Monitor hemodynamics. Keep the Mcknight catheter in place. continue with wound care. Monitor renal function. We'll continue to follow
[2019-02-16] MEDS: DOCUSATE 100 MG CAP PO SCH (14:19)
--- NOTE | 2019-02-16 14:32 | ECHOF ---
Referral Reason:chf MEASUREMENTS -------- HEIGHT: 185.4 cm WEIGHT: 246.3 kg BP: RAP: 5.00 mmHg RVSP: 17.44 mmHg FINDINGS -------- Atrial fibrillation. This was a technically difficult study with suboptimal views. Morbid Obesity Unable to comment on wall motion. Not visible with Lumason. The RV was not well visualized. The left atrium was not well visualized. The right atrium was not well visualized. xx ml of Lumason was utilized for enhancement of images. The aortic valve was not well visualized. The mitral valve was not well visualized. The tricuspid valve was not well visualized. The pulmonic valve was not well visualized. CONCLUSIONS -------- 1. Atrial fibrillation. 2. This was a technically difficult study with suboptimal views. 3. Morbid Obesity 4. Unable to comment on wall motion. Not visible with Lumason. 5. The RV was not well visualized. 6. The left atrium was not well visualized. 7. The right atrium was not well visualized. 8. xx ml of Lumason was utilized for enhancement of images. 9. The aortic valve was not well visualized. 10. The mitral valve was not well visualized. 11. The tricuspid valve was not well visualized. 12. The pulmonic valve was not well visualized. SOFTWARE DEVELOPMENT COORDINATOR: Rosangela Rodriguez RDCS
[2019-02-16 17:53] LABS: Glucose,Whole Blood 114 mg/dL (75-99)
[2019-02-16] MEDS: METOPROLOL TARTRATE 25 MG TAB PO SCH (20:07)
[2019-02-16 22:43] LABS: Glucose,Whole Blood 113 mg/dL (75-99)
[2019-02-17] MEDS: HYDROcodone/APAP 10-325MG 1 EACH TAB PO PRN ×4 (00:38→23:34)
--- NOTE | 2019-02-17 02:04 | P.PN ---
Subjective On-call hospitalist covering for Dr. Canas Date of service is 02/15/2019 This is a pleasant 52 years old male with past medical history diabetes m ellitus, atrial fibrillation, GERD, hypertension, morbid obesity, chronic bilateral lower extremity lymphedema for history of GI bleed related to Coumadin therapy, chronic kidney disease. Presents with signs symptoms of cellulitis of the lower extremity and scrotum. Wound culture is growing beta hemolytic streptococci and gram-negative bacilli. Urine culture is positive for Proteus species. He is status post cystoscopy and Mcknight catheter insertion for urinary retention. Patient on antibiotics as per infectious disease recommendation, he is on Zosyn on the day of this service. Also he got doses of vancomycin previously. Blood pressure on the low side. He needed Levothroid previously but now he is off of pressors 02/16/2019 pt is in the ICU, he is fully awake and alert, he is on zosyn of his cellulitis of his scrotum and lower extremities ,and looks improving, he is off pressors , metoprolol was added to day for better control of his heart rate. glocose is controlled . wbc 6.8 k. Creatinine is 2.9 , he is afebrile Objective - Vital Signs Vital signs: Vital Signs Temp 98.0 F 02/16/19 16:00 Pulse 109 H 02/16/19 17:00 Resp 33 H 02/16/19 18:00 BP 100/71 02/16/19 18:00 Pulse Ox 92 L 02/16/19 18:00 Intake & Output 02/16/19 02/16/19 02/17/19 06:59 18:59 06:59 Intake Total 1480 2535 Output Total 940 1790 Balance 540 745 Weight 251.7 kg Intake: IV 1000 535 Dextrose 5% in Water 1, 900 265 000 ml @ 75 mls/hr IV . [id number] BENITO with Sodium Bicarb (1 Meq/ml) 150 ml Rx#:[id number] NS 70 Piperacillin-Tazobactam 3 100 200 .375 gm In Sodium Chloride 0.9% 100 ml @ 25 mls/hr IVPB Q8H BENITO Rx#: [id number] Oral 480 2000 Output: Urine 940 1790 Other: Voiding Method Indwelling Catheter Indwelling Catheter Indwelling Catheter - Exam GENERAL: The patient is alert and oriented x3, not in any acute distress. Morbidly obese HEENT: Pupils are round and equally reacting to light. EOMI. No scleral icterus. No conjunctival pallor. Normocephalic, atraumatic. No pharyngeal erythema. No thyromegaly. CARDIOVASCULAR: S1 and S2 present. No murmurs, rubs, or gallops. PULMONARY: Chest is clear to auscultation, no wheezing or crackles. -ABDOMEN: Soft, nontender, nondistended, normoactive bowel sounds. No palpable organomegaly. Sequential swelling and erythema, tenderness. Mcknight catheter is in a Place MUSCULOSKELETAL: No joint swelling or deformity. -EXTREMITIES: No cyanosis, clubbing, or pedal edema. Extensive swelling and erythema, with yellow scales on top of both lower extremity, the top of his chronic lymphedema NEUROLOGICAL: Gross neurological examination did not reveal any focal deficits. SKIN: No rashes. - Labs CBC & Chem 7: 02/16/19 04:53 02/16/19 04:53 Labs: Abnormal Lab Results - Last 24 Hours (Table) 02/16/19 02/16/19 02/16/19 Range/Units 04:53 04:53 06:57 RBC 3.92 L (4.30-5.90) m/uL Hgb 11.4 L (13.0-17.5) gm/dL Hct 38.3 L (39.0-53.0) % MCHC 29.7 L (31.0-37.0) g/dL RDW 18.1 H (11.5-15.5) % Sodium 134 L (137-145) mmol/L BUN 51 H (9-20) mg/dL Creatinine 2.94 H (0.66-1.25) mg/dL Glucose 126 H (74-99) mg/dL POC Glucose (mg/dL) 124 H (75-99) mg/dL 02/16/19 02/16/19 Range/Units 11:49 17:51 RBC (4.30-5.90) m/uL Hgb (13.0-17.5) gm/dL Hct (39.0-53.0) % MCHC (31.0-37.0) g/dL RDW (11.5-15.5) % Sodium (137-145) mmol/L BUN (9-20) mg/dL Creatinine (0.66-1.25) mg/dL Glucose (74-99) mg/dL POC Glucose (mg/dL) 132 H 114 H (75-99) mg/dL Microbiology - Last 24 Hours (Table) 02/13/19 10:35 Gram Stain - Final Leg - Right Wound Culture - Final Beta Hemolytic Strep Group G Acinetobacter teddy/haemol 02/12/19 23:05 Blood Culture - Preliminary Blood No Growth after 72 hours 02/14/19 20:05 Urine Culture - Final Urine,Catheterized Assessment and Plan Assessment: Cellulitis of the lower extremity, more on the right than left with scrotal cellulitis Systemic inflammatory response syndrome with tachycardia, leukocytosis Severe Sepsis secondary to above, with acute kidney injury and hypotension Urinary retention Acute kidney injury on chronic kidney disease History of atrial fibrillation Chronic kidney disease, stage III Morbid obesity Diabetes mellitus Hypertension His history of GERD GI bleed related to Coumadin therapy Plan: This is a pleasant 53 years old male who presents because of cellulitis of the lower extremity and scrotum. Continue with antibiotics as per infectious disease recommendation. Also has been followed by several consultants including the pulmonary/critical care team, cartoon designer, and urologist.Labs and medication were reviewed.. Continue same treatment. Continue with symptomatic treatment. Resume home medication. Monitor lytes and vitals. DVT and GI prophylaxis. Further recommendations of the clinical course of the patient DVT prophylaxis: Subcutaneous heparin GI Prophylaxis: Pepcid PT/OT: Pending Prognosis is guarded
[2019-02-17] MEDS: PIPERACILLIN-TAZOBACTAM 3.375 GM in SODIUM CHLORIDE 0.9% 100 ML IVPB SCH ×2 (04:05→11:07)
[2019-02-17] MEDS: LEVOTHYROXINE 75 MCG TAB PO SCH (06:43)
[2019-02-17 06:49] LABS: Glucose,Whole Blood 107 mg/dL (75-99)
[2019-02-17] MEDS: INSULIN ASPART (NovoLOG) 100 UNIT/ML VIAL SQ SCH ×4 (06:49→20:49)
[2019-02-17] MEDS: NOREPINEPHRINE 4 MG in SODIUM CHLORIDE 0.9% 250 ML IV SCH ×4 (06:49→19:53)
[2019-02-17 06:58] LABS: Anisocytosis Slight; Basophils % (A) 0 %; Eosinophils # (A) 0.7 k/uL (0-0.7); Eosinophils % (A) 10 %; HCT 43.1 % (39.0-53.0); HGB 12.5 gm/dL (13.0-17.5); Hypochromasia Marked; Lymphocytes # (A) 0.5 k/uL (1.0-4.8); Lymphocytes % (A) 7 %; MCH 28.7 pg (25.0-35.0); MCHC 29.1 g/dL (31.0-37.0); MCV 98.6 fL (80.0-100.0); Macrocytosis Slight; Mean Platelet Volume 8.2; Monocytes # (A) 0.3 k/uL (0-1.0); Monocytes % (A) 4 %; Neutrophils # (A) 5.2 k/uL (1.3-7.7); Neutrophils % (A) 78 %; Platelet Count 187 k/uL (150-450); Poikilocytosis Slight; RBC 4.37 m/uL (4.30-5.90); RDW 17.9 % (11.5-15.5); WBC 6.8 k/uL (3.8-10.6)
[2019-02-17 07:13] LABS: Calcium 8.4 mg/dL (8.4-10.2); Potassium 4.2 mmol/L (3.5-5.1)
[2019-02-17] MEDS: SODIUM BICARBONATE TAB 650 MG TAB PO SCH ×4 (08:55→23:35)
[2019-02-17] MEDS: ERGOCALCIFEROL 50,000 UNIT CAP PO SCH (08:55)
[2019-02-17] MEDS: diphenhydrAMINE 25 MG CAP PO PRN (08:55)
[2019-02-17] MEDS: HEPARIN SODIUM,PORCINE 5,000 UNIT/ML 1 ML VIAL SQ SCH ×3 (08:55→23:36)
[2019-02-17] MEDS: ALLOPURINOL 300 MG TAB PO SCH (08:55)
[2019-02-17] MEDS: FERROUS SULFATE 325 MG TAB PO SCH ×2 (08:56→20:56)
[2019-02-17] MEDS: DOCUSATE 100 MG CAP PO SCH ×2 (08:56→20:56)
[2019-02-17] MEDS: PANTOPRAZOLE 40 MG TABLET PO SCH (08:56)
[2019-02-17] MEDS: METOPROLOL TARTRATE 25 MG TAB PO SCH ×2 (08:56→20:56)
[2019-02-17] MEDS: FUROSEMIDE 100 MG in SODIUM CHLORIDE 0.9% 90 ML IV SCH ×2 (09:19→16:59)
--- NOTE | 2019-02-17 10:28 | XR ---
EXAMINATION TYPE: XR chest 1V DATE OF EXAM: 02/17/2019 COMPARISON: 02/16/2019 INDICATION: Short of breath TECHNIQUE: Single frontal view of the chest is obtained. FINDINGS: The heart size is enlarged. The pulmonary vasculature is normal. Some opacities in the retrocardiac region. Findings are stable from comparison. IMPRESSION: 1. Retrocardiac infiltrate and diffuse alveolar type infiltrate. Correlate for mild pulmonary edema. 2. Cardiomegaly
[2019-02-17 12:04] LABS: Glucose,Whole Blood 123 mg/dL (75-99)
--- NOTE | 2019-02-17 12:07 | P.PN ---
Subjective Progress Note Date: 02/17/19 Principal diagnosis: This is a 53-year-old morbidly obese male who is seen because of acute kidney injury. He does have CKD with creatinine of 2 dated 12/10/2018 and has had 2 episodes of Dialysis dependent acute kidney injury from which he recovered in the past. He was admitted on 02/12/2019, came in with worsening scrotal pain and swelling and worsening chronic edema. He was hypotensive and was fluid resuscitated and also started on levo fed. This has been discontinued and he is on Lasix and responding very well. Additionally he has UTI with Proteus on the sensitivities are not reported for reasons not clear. In spite of the diuresis he remains edematous with erythema . Both legs as well as significantly enlarged scrotum He is in atrial fibrillation blood pressure He is known with chronic atrial fibrillation diabetes mellitus morbid obesity with BMI in the 70s, difficulty with Mcknight catheter that needed urology to do it under cystoscopy. After putting the catheter and is making some urine he has been hydrated. This morning he was given Lasix. In the past she's had 2 episodes of dialysis dependent acute kidney injury. Objective - Vital Signs Vital signs: Vital Signs Temp 97.7 F 02/17/19 08:00 Pulse 105 H 02/17/19 09:00 Resp 27 H 02/17/19 11:00 BP 117/79 02/17/19 11:00 Pulse Ox 93 L 02/17/19 11:00 Intake & Output 02/16/19 02/17/19 02/17/19 18:59 06:59 18:59 Intake Total 2535 220 70 Output Total 1790 990 500 Balance 745 -770 -430 Weight 288.5 kg Intake: IV 535 120 70 Dextrose 5% in Water 1, 265 000 ml @ 75 mls/hr IV . [id number] BENITO with Sodium Bicarb (1 Meq/ml) 150 ml Rx#:[id number] NS 70 120 40 Piperacillin-Tazobactam 3 200 .375 gm In Sodium Chloride 0.9% 100 ml @ 25 mls/hr IVPB Q8H BENITO Rx#: [id number] furosemide 30 Intake, IV Titration 100 Amount Piperacillin-Tazobactam 3 100 .375 gm In Sodium Chloride 0.9% 100 ml @ 25 mls/hr IVPB Q8H BENITO Rx#: [id number] Oral 2000 Output: Urine 1790 990 500 Other: Voiding Method Indwelling Catheter Indwelling Catheter Examination he is awake alert oriented, he is on nasal oxygen. HEENT exam no JVP neck is supple no facial asymmetry Lungs are clear to auscultation with fair air entry bilaterally Heart sounds are unremarkable except for atrial fibrillation Abdomen is huge and difficult to examine but nontender Extremity exam reveals erythematous skin with 2+ edema, he has chronic lymphedema. Neurological he is awake alert and oriented - Labs CBC & Chem 7: 02/17/19 06:43 02/17/19 06:43 Labs: Abnormal Lab Results - Last 24 Hours (Table) 02/16/19 02/16/19 02/16/19 Range/Units 11:49 17:51 22:41 Hgb (13.0-17.5) gm/dL MCHC (31.0-37.0) g/dL RDW (11.5-15.5) % Lymphocytes # (1.0-4.8) k/uL Sodium (137-145) mmol/L Carbon Dioxide (22-30) mmol/L BUN (9-20) mg/dL Creatinine (0.66-1.25) mg/dL Glucose (74-99) mg/dL POC Glucose (mg/dL) 132 H 114 H 113 H (75-99) mg/dL 02/17/19 02/17/19 02/17/19 Range/Units 06:43 06:43 06:47 Hgb 12.5 L (13.0-17.5) gm/dL MCHC 29.1 L (31.0-37.0) g/dL RDW 17.9 H (11.5-15.5) % Lymphocytes # 0.5 L (1.0-4.8) k/uL Sodium 134 L (137-145) mmol/L Carbon Dioxide 20 L (22-30) mmol/L BUN 53 H (9-20) mg/dL Creatinine 2.68 H (0.66-1.25) mg/dL Glucose 106 H (74-99) mg/dL POC Glucose (mg/dL) 107 H (75-99) mg/dL Microbiology - Last 24 Hours (Table) 02/12/19 23:05 Blood Culture - Preliminary Blood No Growth after 96 hours 02/13/19 10:35 Gram Stain - Final Leg - Right Wound Culture - Final Beta Hemolytic Strep Group G Acinetobacter teddy/haemol Assessment and Plan Assessment: Patient 1. Acute kidney injury, secondary to possible septic syndrome with UTI with Proteus. Creatinine has slowly gone up from 2.2 on admission to 2.94. With aggressive diuresis creatinine came down to 82.6 with good urine output. He was switched over to IV Lasix drip this morning. 2. Chronic kidney disease with a baseline creatinine of 1.6 in 2017 and 2 on 12/10/2018. Likely from nephrosclerosis. Urinalysis on 02/13/2019 shows 1+ protein. 3. Mild degree of non-gap acidosis, bicarb is down to 20 again today with a gap of 9. 4. Proteus urinary tract infection. sensitivities pending 5. Atrial fibrillation chronic, hypotension. Rule out cardiomyopathy. 6. Significant chronic stasis edema with redness possible cellulitis 7. Significant scrotal edema and hydrocele. Recommendation 1. agree with Lasix as he has shown stability of his creatinine with good urine output. 2. Had echocardiogram to assess cardiac function. Her LV function could not be established . 3. Ultrasound of the kidneys was very difficult exam and is incomplete 4. He may need some inotropes if his ejection fraction is poor
--- NOTE | 2019-02-17 12:46 | P.PN ---
Subjective Progress Note Date: 02/17/19 This is a morbidly obese 53-year-old male patient who came into the emergency department yesterday because of scrotal pain and swelling. At the same time the patient looked to be quite dehydrated and hypotensive and he was suspected to be and septic shock. In the emergency department, the patient was given 10 a half liters of IV fluids. Following that, he continued to be hypotensive with a lower systolic blood pressure and based on that the patient was started on norepinephrine infusion. Earlier this morning. Norepinephrine infusion was running at 15 mics per minute.. The patient was still having hypotension and the patient was maintained on a fluid infusion rate of 100 mL an hour. A Mcknight catheter was inserted by urology. This was a very difficult insertion. A cystoscope was used to insert the catheter. The patient had a swollen testicle and a very sunken penis with the penile orifice was not adequately visualized. Ultimately the catheter was inserted and only 50 mL of urine output was obtained. Urine was was possibly infected knowing that there was increased white cell count and clumps and bacteria. It was sent for cultures. The patient has very large lower extremities and they are lymphedematous and there is chronic ulceration in lower oximetry is bilaterally. He has been followed up at the wound center. Among his chronic wounds, there is a area and the lateral aspect of the right lower extremity was quite macerated and there is a patch of purulent material covering the wound surface and this area is estimated to be around 3 cm in size. There is another area of stage II to 3 ulcer in the right lower posterior scalp area which is smaller and the bases pretty healthy without any purulent material. The scrotum was quite swollen and there is extensive erythema extending to the upper thigh areas bilaterally. No open wounds or sores. No crepitation. Chest palpated in that area. Left lower extremity has chronic ulceration yet none of these ulcers showed any active infection. The patient also has some excoriation and redness in his buttocks area related to chronic immobility as the patient is nonambulatory at this point in time. He was covered with a combination of Zosyn and vancomycin. Aquacel silver was applied to the right lower extremity wounds and ID consultation was obtained. The patient meanwhile had an ultrasound of the scrotum that showed evidence of fluid versus cellulitis. The patient stated that he was feeling chilled and feverish at home. No documented temperature for now. He denies having any chest pain. No shortness of breath. No nausea. No vomiting. No diarrhea. No constipation. No altered mentation. Family is at the bedside. Unfortunately, while doing his routine bathing, the Mcknight catheter. A mild and currently does not have a Mcknight catheter in place. In terms of his blood work, his white cell count is at 12.8. His lactic acid level is down to 1.7. His creatinine is abnormal at 2.4. The patient has chronic a to for kidney disease. He has a component of non-anion gap metabolic acidosis with a serum bicarb of 7. Based on his previous records, the patient has had infections with gram-negative and MVR oh including pseudomonal infections in the urine, wound infections including Enterobacter, Proteus and enterococcus faecalis and Klebsiella and Morganella morganii and Acinetobacter 02/14/2019, the patient is awake and alert and following commands and answering questions appropriately. Still on 0.03 g per KG per minute of norepinephrine infusion for blood pressure control. He has developed a component of non-anion gap metabolic acidosis and based on that I'm going to switch him to a bicarb drip infusion. His serum bicarb is 16. His creatinine is up to 2.8 and the patient will obviously need another Mcknight catheter insertion. He was seen by infectious disease. He was kept on a combination of Zosyn and vancomycin. Doppler of the lower extremity was negative for DVT. He is afebrile. Pulse ox is 92% on room air oxygen. White cell count is at 9.4. The patient was seen by infectious disease. Aquacel silver was applied to the right lower extremity wounds. Cellulitis of the scrotal area is also improving. Repeat urine cultures showing Proteus species and final cultures and sensitivities are still pending for now. On today's evaluation of 02/15/2019 I'm seeing this patient for a follow-up. The patient is awake and alert. He is currently off pressors. He is on a bicarb drip and his serum bicarbonate is gradually improving. He had a Mcknight catheter reinserted yesterday. His scrotum remains quite swollen. Lower extremity is swollen. The ones are being taken care of locally. He is on a broad-spectrum antibiotics utilizing a combination of Zosyn and vancomycin. Infectious diseases on the case. No nausea. No vomiting. No abdominal pain. No chest pain. Altered mentation. No other significant events overnight. The white cell count is at 8.0. The patient developed an acute kidney injury probably related to an obstructive uropathy knowing that post insertion of a Mcknight catheter was significant urine output. Creatinine is at 2.5 on today's evaluation. on 02/16/2019 I'm seeing this patient for a follow-up. The patient is awake and alert. The patient is currently off pressors. He has been off pressors for the past 24 hours. I'm willing to discontinue the bicarb infusion. He was given a dose of Lasix yesterday 60 mg IV push and responded nicely. Nevertheless, he continues to be in positive fluid balance. He remains to be on IV Zosyn. Mcknight cath is in place. Urine output is adequate for now. Creatinine is stable at 2.9.he is tolerating his diet. No other significant events for now. Widely awake and alert. On 02/17/2019, the patient continues to be in significant fluid overload. Nevertheless he is off pressors. He is scrotum and lower extremity areas are quite swollen at this point in time. He is off the bicarb infusion. He is on IV Lasix 60 mg every 24 hours. I'm inclined of switching this patient a Lasix drip. When he to achieve a better negative fluid balance on this patient. Meanwhile he remains on IV Zosyn. The wound cultures showing Citrobacter and strep group G in the urine cultures showing Proteus species. ID is on the case. He is awake and alert. No signs of any respiratory distress. He is resting comfortably in bed. Nephrology is also on the case. Is on oral bicarb. Objective - Vital Signs Vital signs: Vital Signs Temp 97.7 F 02/17/19 08:00 Pulse 101 H 02/17/19 12:00 Resp 10 L 02/17/19 12:00 BP 107/70 02/17/19 12:00 Pulse Ox 94 L 02/17/19 12:00 Intake & Output 02/16/19 02/17/19 02/17/19 18:59 06:59 18:59 Intake Total 2535 220 120 Output Total 1790 990 600 Balance 745 -770 -480 Weight 288.5 kg Intake: IV 535 120 120 Dextrose 5% in Water 1, 265 000 ml @ 75 mls/hr IV . [id number] BENITO with Sodium Bicarb (1 Meq/ml) 150 ml Rx#:[id number] NS 70 120 80 Piperacillin-Tazobactam 3 200 .375 gm In Sodium Chloride 0.9% 100 ml @ 25 mls/hr IVPB Q8H BENITO Rx#: [id number] furosemide 40 Intake, IV Titration 100 Amount Piperacillin-Tazobactam 3 100 .375 gm In Sodium Chloride 0.9% 100 ml @ 25 mls/hr IVPB Q8H BENITO Rx#: [id number] Oral 2000 Output: Urine 1790 990 600 Other: Voiding Method Indwelling Catheter Indwelling Catheter Indwelling Catheter - Exam General appearance: alert, in no apparent distress, the patient, nonacute distal distress, currently BMI 75 Head exam was generally normal. There was no scleral icterus or corneal arcus. M ucous membranes were moist. Neck was supple and without jugular venous distension, thyromegaly, or carotid bruits. Carotids were easily palpable bilaterally. There was no adenopathy. Eye exam: Present: normal appearance, PERRL, EOMI. Absent: scleral icterus, conjunctival injection, periorbital swelling ENT exam: Present: normal exam, mucous membranes moist, the patient has poor dentition and several missing teeth Respiratory exam: Present: normal lung sounds bilaterally. Absent: respiratory distress, wheezes, rales, rhonchi, stridor Cardiovascular Exam: Present: normal rhythm, tachycardia, normal heart sounds. Absent: systolic murmur, diastolic murmur, rubs, gallop, clicks GI/Abdominal exam: Present: soft, normal bowel sounds. Absent: distended, tenderness, guarding, rebound, rigid exam: Present: scrotal swelling (Severe), in addition to erythema involving the scrotal area extending to the thighs bilaterally and the area is warm and red. Testicles are patch and palpation. No masses. Extremities exam: Present: full ROM, normal capillary refill, other (Bilateral lower legs are edematous and weeping). Absent: normal inspection, tenderness, pedal edema, joint swelling, calf tenderness Neurological exam: Present: alert, oriented X3, CN II-XII intact Psychiatric exam: Present: normal affect, normal mood Skin exam: Present: warm, dry, intact, normal color. The patient has chronic lymphedema lower extremities bilaterally. The patient has a over the lateral aspect of the right lower extremity addition to a and stage II to 3 wound in the posterior aspect of the base of which is clean. The wound in the left lower extremity are quite superficial and noninfected this point in time. - Labs CBC & Chem 7: 02/17/19 06:43 02/17/19 06:43 Labs: Abnormal Lab Results - Last 24 Hours (Table) 02/16/19 02/16/19 02/17/19 Range/Units 17:51 22:41 06:43 Hgb 12.5 L (13.0-17.5) gm/dL MCHC 29.1 L (31.0-37.0) g/dL RDW 17.9 H (11.5-15.5) % Lymphocytes # 0.5 L (1.0-4.8) k/uL Sodium (137-145) mmol/L Carbon Dioxide (22-30) mmol/L BUN (9-20) mg/dL Creatinine (0.66-1.25) mg/dL Glucose (74-99) mg/dL POC Glucose (mg/dL) 114 H 113 H (75-99) mg/dL 02/17/19 02/17/19 02/17/19 Range/Units 06:43 06:47 12:02 Hgb (13.0-17.5) gm/dL MCHC (31.0-37.0) g/dL RDW (11.5-15.5) % Lymphocytes # (1.0-4.8) k/uL Sodium 134 L (137-145) mmol/L Carbon Dioxide 20 L (22-30) mmol/L BUN 53 H (9-20) mg/dL Creatinine 2.68 H (0.66-1.25) mg/dL Glucose 106 H (74-99) mg/dL POC Glucose (mg/dL) 107 H 123 H (75-99) mg/dL Microbiology - Last 24 Hours (Table) 02/12/19 23:05 Blood Culture - Preliminary Blood No Growth after 96 hours 02/13/19 10:35 Gram Stain - Final Leg - Right Wound Culture - Final Beta Hemolytic Strep Group G Acinetobacter teddy/haemol Assessment and Plan Plan: 1 sepsis with secondary hypotension. Consider scrotal cellulitis extending to the upper thighs. Consider wound infection in the right lower extremity with s econdary infection and sepsis. Consider urine tract infection with secondary sepsis. The patient was well resuscitated with fluids and pressors and the patient is currently off pressors yet he is in significant amount of fluid overload 2 hypotension secondary to above, recovered 3 UTI secondary to Proteus 4 low urine output, post insertion and accidental loss of a Mcknight catheter, a Mcknight catheter will be reinserted 5 chronic kidney disease stage 3-4 with an acute kidney injury on top of chronic renal failure. Currently unable to measure urine output as the patient is incontinent and the Mcknight catheter has been lost. Urology is aware and another catheter will be inserted first in the morning. The patient has an acute on top of chronic kidney injury and it creatinine is at 2.6 and the patient will be started on Lasix drip. 6 right lower extremity wound 7 chronic ulceration was in lower extremity is bilaterally 8 chronic lymphedema of the lower extremity is bilaterally 9. Obesity with a BMI of 75 10 chronic atrial fibrillation rate controlled not an anticoagulation due to previous episodes of GI bleed 11 hypothyroidism 12 diabetes mellitus 13 hypertension 14 non-anion gap metabolic acidosis of a bicarb of 23 Plan Stop Lasix drip at 10 mg an hour. Monitor creatinine. Monitor fluid balance. No need for pressors at this point in time. Discussed antibiotic coverage with infectious disease. Prognosis poor. Continue local wound care. We'll continue to follow.
[2019-02-17] MEDS ORDERED: MAGNESIUM HYDROXIDE 2,400 MG/10 ML CUP PO PRN (15:07)
[2019-02-17] MEDS ORDERED: BISACODYL 10 MG SUPP RECTAL PRN (15:07)
[2019-02-17 17:13] LABS: Glucose,Whole Blood 111 mg/dL (75-99)
[2019-02-17] MEDS: CEFEPIME 2 GM in SODIUM CHLORIDE 0.9% 100 ML IVPB SCH (17:28)
[2019-02-17 20:47] LABS: Glucose,Whole Blood 101 mg/dL (75-99)
--- NOTE | 2019-02-18 00:46 | P.PN ---
Subjective Progress Note Date: 02/17/19 Principal diagnosis: Right leg wound and cellulitis culture positive for strep and Acinetobacter evaluate antibiotics Patient is a 53-year-old male with a past medical history significant for significant lymphedema involving his right lower extremity and lower extremity wound and cellulitis currently being treated for right leg wound with secondary cellulitis with IV Zosyn the patient did have cultures obtained which were finalized last night with Streptococcus and Acinetobacter , the patient RN call me with concern the organism is resistant to Zosyn and need for adjustment of his antibiotic therapy. On today's evaluation that is 02/17/2019 the patient is afebrile denies having any rigors or chills complaining of some shortness of breath or chest pain the patient did have significant swelling in his right lower extremity with mild delay aching pain 4-5 out of 10 and no radiation did have some superficial wound currently being treated with Aquacel silver dressing no foul-smelling drainage denies any abdominal pain and no diarrhea ROS: Positive points mentioned in HPI rest of systems negative Past medical and surgical history reviewed Medications reviewed Objective - Vital Signs Vital signs: Vital Signs Temp 98.3 F 02/17/19 16:00 Pulse 114 H 02/17/19 16:00 Resp 15 02/17/19 16:00 BP 119/75 02/17/19 16:00 Pulse Ox 95 02/17/19 16:00 Intake & Output 02/16/19 02/17/19 02/17/19 18:59 06:59 18:59 Intake Total 2535 220 160 Output Total 8591 168 5966 Balance 745 -770 -1015 Weight 288.5 kg Intake: IV 535 120 160 Dextrose 5% in Water 1, 265 000 ml @ 75 mls/hr IV . [id number] [facility] with Sodium Bicarb (1 Meq/ml) 150 ml Rx#:[id number] NS 70 120 100 Piperacillin-Tazobactam 3 200 .375 gm In Sodium Chloride 0.9% 100 ml @ 25 mls/hr IVPB Q8H [facility] Rx#: [id number] furosemide 60 Intake, IV Titration 100 Amount Piperacillin-Tazobactam 3 100 .375 gm In Sodium Chloride 0.9% 100 ml @ 25 mls/hr IVPB Q8H [facility] Rx#: [id number] Oral 2000 Output: Urine 0315 646 4630 Other: Voiding Method Indwelling Catheter Indwelling Catheter Indwelling Catheter - Exam GENERAL DESCRIPTION:[ Patient is awake and alert in no distress] HEENT: [Oral mucosa is dry and no pharyngeal erythema] EYES : [No pallor or scleral icterus] RESPIRATORY SYSTEM: [Unlabored breathing decreased breath sound at the base] CARDIA VASCULAR SYSTEM: [S1-S2 regular rate and rhythm no murmur] GI: [Abdominal soft there's no tenderness no organomegaly] EXTREMITIES: [Significant lymphedema especially the right leg with superficial wound on the medial and the Lateral side with no slough tissue did have minimal surrounding erythema no foul-smelling drainage - Labs CBC & Chem 7: 02/17/19 06:43 02/17/19 06:43 Labs: Abnormal Lab Results - Last 24 Hours (Table) 02/16/19 02/16/19 02/17/19 Range/Units 17:51 22:41 06:43 Hgb 12.5 L (13.0-17.5) gm/dL MCHC 29.1 L (31.0-37.0) g/dL RDW 17.9 H (11.5-15.5) % Lymphocytes # 0.5 L (1.0-4.8) k/uL Sodium (137-145) mmol/L Carbon Dioxide (22-30) mmol/L BUN (9-20) mg/dL Creatinine (0.66-1.25) mg/dL Glucose (74-99) mg/dL POC Glucose (mg/dL) 114 H 113 H (75-99) mg/dL 02/17/19 02/17/19 02/17/19 Range/Units 06:43 06:47 12:02 Hgb (13.0-17.5) gm/dL MCHC (31.0-37.0) g/dL RDW (11.5-15.5) % Lymphocytes # (1.0-4.8) k/uL Sodium 134 L (137-145) mmol/L Carbon Dioxide 20 L (22-30) mmol/L BUN 53 H (9-20) mg/dL Creatinine 2.68 H (0.66-1.25) mg/dL Glucose 106 H (74-99) mg/dL POC Glucose (mg/dL) 107 H 123 H (75-99) mg/dL Microbiology - Last 24 Hours (Table) 02/12/19 23:05 Blood Culture - Preliminary Blood No Growth after 96 hours 02/13/19 10:35 Gram Stain - Final Leg - Right Wound Culture - Final Beta Hemolytic Strep Group G Acinetobacter teddy/haemol Assessment and Plan Assessment: 1-patient with significant lymphedema right leg with evidence of superficial ulceration/wound and secondary cellulitis culture has been positive for Streptococcus and Acinetobacter , with a Acinetobacter did have multidrug- resistant production he was resistant to meropenem and sensitive to Unasyn 2-positive UA with culture showing Proteus mirabilis sensitivities pending Plan: 1-discontinue the Zosyn 2-ideally would have use Unasyn for Acinetobacter as well as strep unfortunately Unasyn is not available as per discussion with the pharmacist on the phone he will add cefepime 2 g daily dose adjusted to his kidney function at least he did have some intermittent sensitivity to this pathogen Family the bedside question were answered Dr. Elias will resume the care as of tomorrow Time with Patient: Greater than 30
[2019-02-18] MEDS: NOREPINEPHRINE 4 MG in SODIUM CHLORIDE 0.9% 250 ML IV SCH ×4 (04:17→16:05)
[2019-02-18] MEDS: FUROSEMIDE 100 MG in SODIUM CHLORIDE 0.9% 90 ML IV SCH ×3 (04:42→21:53)
[2019-02-18] MEDS: HYDROcodone/APAP 10-325MG 1 EACH TAB PO PRN ×3 (06:09→21:26)
[2019-02-18] MEDS: LEVOTHYROXINE 75 MCG TAB PO SCH (06:09)
[2019-02-18 06:19] LABS: Anisocytosis Slight; HCT 42.7 % (39.0-53.0); HGB 12.2 gm/dL (13.0-17.5); Hypochromasia Marked; MCH 27.8 pg (25.0-35.0); MCHC 28.6 g/dL (31.0-37.0); Macrocytosis Slight; Mean Platelet Volume 8.7; Platelet Count 210 k/uL (150-450); RDW 17.9 % (11.5-15.5); WBC 5.7 k/uL (3.8-10.6)
[2019-02-18 06:23] LABS: Calcium 8.7 mg/dL (8.4-10.2); Potassium 3.3 mmol/L (3.5-5.1)
--- NOTE | 2019-02-18 06:36 | P.PN ---
Subjective On-call hospitalist covering for Dr. Canas Date of service is 02/15/2019 This is a pleasant 52 years old male with past medical history diabetes m ellitus, atrial fibrillation, GERD, hypertension, morbid obesity, chronic bilateral lower extremity lymphedema for history of GI bleed related to Coumadin therapy, chronic kidney disease. Presents with signs symptoms of cellulitis of the lower extremity and scrotum. Wound culture is growing beta hemolytic streptococci and gram-negative bacilli. Urine culture is positive for Proteus species. He is status post cystoscopy and Mcknight catheter insertion for urinary retention. Patient on antibiotics as per infectious disease recommendation, he is on Zosyn on the day of this service. Also he got doses of vancomycin previously. Blood pressure on the low side. He needed Levothroid previously but now he is off of pressors 02/16/2019 pt is in the ICU, he is fully awake and alert, he is on zosyn of his cellulitis of his scrotum and lower extremities ,and looks improving, he is off pressors , metoprolol was added to day for better control of his heart rate. glocose is controlled . wbc 6.8 k. Creatinine is 2.9 , he is afebrile 02/17/2019 Patient remains in the ICU, he has history of swelling in his lower extremity and scrotal from his history of lymphedema and superimposed infection. His blood pressure is improving gradually. He is on epinephrine now. He is fully awake and oriented with no chest pain or dyspnea. His chest x-ray showed mild pulmonary congestion and possible retrocardiac infiltrate with cardiomegaly as per radiologist's report. Patient antibiotics was switched from Zosyn to cefepime based on the wound culture results as per infectious disease team who followed the case closely. Patient was started on Lasix drip. Creatinine is stable from 2.7 Objective - Vital Signs Vital signs: Vital Signs Temp 98.3 F 02/17/19 16:00 Pulse 114 H 02/17/19 18:00 Resp 14 02/17/19 18:00 BP 111/71 02/17/19 18:00 Pulse Ox 92 L 02/17/19 18:00 Intake & Output 02/17/19 02/17/19 02/18/19 06:59 18:59 06:59 Intake Total 220 416.667 Output Total 990 1825 Balance -770 -1408.333 Weight 288.5 kg Intake: IV 120 340 NS 120 140 cefepime 100 furosemide 100 Intake, IV Titration 100 76.667 Amount Furosemide 100 mg In 76.667 Sodium Chloride 0.9% 90 ml @ 10 MG/HR 10 mls/hr IV .Q10H [facility] Rx#: [id number] Piperacillin-Tazobactam 3 100 .375 gm In Sodium Chloride 0.9% 100 ml @ 25 mls/hr IVPB Q8H [facility] Rx#: [id number] Output: Urine 990 1825 Other: Voiding Method Indwelling Catheter Indwelling Catheter - Exam GENERAL: The patient is alert and oriented x3, not in any acute distress. Morbidly obese HEENT: Pupils are round and equally reacting to light. EOMI. No scleral icterus. No conjunctival pallor. Normocephalic, atraumatic. No pharyngeal erythema. No thyromegaly. CARDIOVASCULAR: S1 and S2 present. No murmurs, rubs, or gallops. PULMONARY: Chest is clear to auscultation, no wheezing or crackles. -ABDOMEN: Soft, nontender, nondistended, normoactive bowel sounds. No palpable organomegaly. Sequential swelling and erythema, tenderness. Mcknight catheter is in a Place MUSCULOSKELETAL: No joint swelling or deformity. -EXTREMITIES: No cyanosis, clubbing, or pedal edema. Extensive swelling and erythema, with yellow scales on top of both lower extremity, the top of his chronic lymphedema NEUROLOGICAL: Gross neurological examination did not reveal any focal deficits. SKIN: No rashes. - Labs CBC & Chem 7: 02/18/19 05:51 02/18/19 05:51 Labs: Abnormal Lab Results - Last 24 Hours (Table) 02/16/19 02/17/19 02/17/19 Range/Units 22:41 06:43 06:43 Hgb 12.5 L (13.0-17.5) gm/dL MCHC 29.1 L (31.0-37.0) g/dL RDW 17.9 H (11.5-15.5) % Lymphocytes # 0.5 L (1.0-4.8) k/uL Sodium 134 L (137-145) mmol/L Carbon Dioxide 20 L (22-30) mmol/L BUN 53 H (9-20) mg/dL Creatinine 2.68 H (0.66-1.25) mg/dL Glucose 106 H (74-99) mg/dL POC Glucose (mg/dL) 113 H (75-99) mg/dL 02/17/19 02/17/19 02/17/19 Range/Units 06:47 12:02 17:12 Hgb (13.0-17.5) gm/dL MCHC (31.0-37.0) g/dL RDW (11.5-15.5) % Lymphocytes # (1.0-4.8) k/uL Sodium (137-145) mmol/L Carbon Dioxide (22-30) mmol/L BUN (9-20) mg/dL Creatinine (0.66-1.25) mg/dL Glucose (74-99) mg/dL POC Glucose (mg/dL) 107 H 123 H 111 H (75-99) mg/dL Microbiology - Last 24 Hours (Table) 02/12/19 23:05 Blood Culture - Preliminary Blood No Growth after 96 hours 02/13/19 10:35 Gram Stain - Final Leg - Right Wound Culture - Final Beta Hemolytic Strep Group G Acinetobacter teddy/haemol Assessment and Plan Assessment: Cellulitis of the lower extremity, more on the right than left with scrotal cellulitis Systemic inflammatory response syndrome with tachycardia, leukocytosis Severe Sepsis secondary to above, with acute kidney injury and hypotension Urinary retention Acute kidney injury on chronic kidney disease History of atrial fibrillation Chronic kidney disease, stage III Morbid obesity Diabetes mellitus Hypertension His history of GERD GI bleed related to Coumadin therapy Plan: This is a pleasant 53 years old male who presents because of cellulitis of the lower extremity and scrotum. Continue with antibiotics as per infectious disease recommendation. Also has been followed by several consultants including the pulmonary/critical care team, head of sales and marketing, and urologist.Labs and medication were reviewed.. Continue same treatment. Continue with symptomatic treatment. Resume home medication. Monitor lytes and vitals. DVT and GI prophylaxis. Further recommendations of the clinical course of the patient DVT prophylaxis: Subcutaneous heparin GI Prophylaxis: Pepcid PT/OT: Pending Prognosis is guarded
[2019-02-18] MEDS: POTASSIUM CHLORIDE ER 20 MEQ TAB.ER PO SCH ×6 (06:43→21:27)
[2019-02-18] MEDS: INSULIN ASPART (NovoLOG) 100 UNIT/ML VIAL SQ SCH ×4 (06:48→21:26)
[2019-02-18 06:49] LABS: Glucose,Whole Blood 107 mg/dL (75-99)
--- NOTE | 2019-02-18 08:21 | XR ---
EXAMINATION TYPE: XR chest 1V portable DATE OF EXAM: 02/18/2019 COMPARISON: Prior chest x-ray 02/17/2019 HISTORY: Pulmonary edema TECHNIQUE: Single frontal view of the chest is obtained. FINDINGS: Patient is rotated. Heart is enlarged and stable. Bibasilar increased densities noted. The re is no evident pneumothorax. IMPRESSION: Rotated exam. There may be basilar edema versus pneumonia or atelectasis. Persistent car diomegaly, rotated exam. Follow-up recommended.
[2019-02-18] MEDS: PANTOPRAZOLE 40 MG TABLET PO SCH (08:55)
[2019-02-18] MEDS: METOPROLOL TARTRATE 25 MG TAB PO SCH ×2 (08:55→21:26)
[2019-02-18] MEDS: FERROUS SULFATE 325 MG TAB PO SCH ×2 (08:55→21:27)
[2019-02-18] MEDS: SODIUM BICARBONATE TAB 650 MG TAB PO SCH ×4 (08:55→21:27)
[2019-02-18] MEDS: ALLOPURINOL 300 MG TAB PO SCH (08:56)
[2019-02-18] MEDS: DOCUSATE 100 MG CAP PO SCH ×3 (08:56→21:22)
[2019-02-18] MEDS: HEPARIN SODIUM,PORCINE 5,000 UNIT/ML 1 ML VIAL SQ SCH ×3 (08:59→23:33)
--- NOTE | 2019-02-18 11:13 | P.PN ---
Subjective Patient is seen in follow-up for acute kidney injury. Renal function is mildly worse today. Creatinine 2.75. Patient is maintained on Lasix drip at 10 mL an hour. He is nonoliguric. Also being treated for UTI. Urine culture positive for Proteus. Denies chest pain or shortness of breath. Oral intake is good. No vomiting or diarrhea. Vital signs are stable. General: The patient appeared well nourished and normally developed. HEENT: Head exam is unremarkable. Neck is without jugular venous distension. LUNGS: Breath sounds decreased. HEART: Rate and Rhythm are regular. First and second heart sounds normal. No murmurs, rubs or gallops. ABDOMEN: Bowel sounds present. Morbidly obese. EXTREMITITES: 2+ edema. Chronic skin changes noted. Objective - Vital Signs Vital signs: Vital Signs Temp 97.8 F 02/18/19 08:00 Pulse 93 02/18/19 10:00 Resp 13 02/18/19 10:00 BP 112/75 02/18/19 10:00 Pulse Ox 96 02/18/19 10:00 Intake & Output 02/17/19 02/18/19 02/18/19 18:59 06:59 18:59 Intake Total 270.760 4561 280 Output Total 1825 3805 750 Balance -1408.333 -1985 -470 Weight 281.2 kg Intake: IV 340 220 80 NS 140 110 40 cefepime 100 furosemide 100 110 40 Intake, IV Titration 76.667 100 Amount Furosemide 100 mg In 76.667 100 Sodium Chloride 0.9% 90 ml @ 10 MG/HR 10 mls/hr IV .Q10H [facility] Rx#: [id number] Oral 1500 200 Output: Urine 1825 3805 750 Other: Voiding Method Indwelling Catheter Indwelling Catheter Indwelling Catheter # Voids 0 - Labs CBC & Chem 7: 02/18/19 05:51 02/18/19 05:51 Labs: Abnormal Lab Results - Last 24 Hours (Table) 02/17/19 02/17/19 02/17/19 Range/Units 12:02 17:12 20:46 Hgb (13.0-17.5) gm/dL MCHC (31.0-37.0) g/dL RDW (11.5-15.5) % Potassium (3.5-5.1) mmol/L BUN (9-20) mg/dL Creatinine (0.66-1.25) mg/dL Glucose (74-99) mg/dL POC Glucose (mg/dL) 123 H 111 H 101 H (75-99) mg/dL 02/18/19 02/18/19 02/18/19 Range/Units 05:51 05:51 06:46 Hgb 12.2 L (13.0-17.5) gm/dL MCHC 28.6 L (31.0-37.0) g/dL RDW 17.9 H (11.5-15.5) % Potassium 3.3 L (3.5-5.1) mmol/L BUN 51 H (9-20) mg/dL Creatinine 2.75 H (0.66-1.25) mg/dL Glucose 117 H (74-99) mg/dL POC Glucose (mg/dL) 107 H (75-99) mg/dL Microbiology - Last 24 Hours (Table) 02/12/19 23:05 Blood Culture - Preliminary Blood No Growth after 120 hours Assessment and Plan Plan: Assessment: 1. Acute kidney injury. Initially due to hypotension and sepsis. No other appears to be a component of cardiorenal syndrome. Creatinine 2.75 today. 2. Chronic kidney disease stage III. Creatinine from November 2018 was near 2. Etiologies nephrosclerosis and component of diabetic kidney disease as he does have proteinuria. 3. Morbid obesity. 4. UTI with urine culture positive for Proteus maintained on antibiotics. 5. Hypokalemia secondary to diuresis. Rule out magnesium deficiency. 6. Volume overload. 7. Metabolic acidosis secondary to acute kidney injury. Maintain on oral sodium bicarbonate. Plan: Maintain Lasix drip at 10 mL an hour for now. Potassium being replaced. Check magnesium level. Continue to monitor renal function and urine output.
--- NOTE | 2019-02-18 11:29 | P.PN ---
Subjective Progress Note Date: 02/18/19 Principal diagnosis: Acute sepsis from extensive cellulitis involving scrotum and lower extremities. Acute septic shock. This is a morbidly obese 53-year-old male patient who came into the emergency department yesterday because of scrotal pain and swelling. At the same time the patient looked to be quite dehydrated and hypotensive and he was suspected to be and septic shock. In the emergency department, the patient was given 10 a half liters of IV fluids. Following that, he continued to be hypotensive with a lower systolic blood pressure and based on that the patient was started on norepinephrine infusion. Earlier this morning. Norepinephrine infusion was running at 15 mics per minute.. The patient was still having hypotension and the patient was maintained on a fluid infusion rate of 100 mL an hour. A Mcknight catheter was inserted by urology. This was a very difficult insertion. A cystoscope was used to insert the catheter. The patient had a swollen testicle and a very sunken penis with the penile orifice was not adequately visualized. Ultimately the catheter was inserted and only 50 mL of urine output was obtained. Urine was was possibly infected knowing that there was increased white cell count and clumps and bacteria. It was sent for cultures. The patient has very large lower extremities and they are lymphedematous and there is chronic ulceration in lower oximetry is bilaterally. He has been followed up at the wound center. Among his chronic wounds, there is a area and the lateral aspect of the right lower extremity was quite macerated and there is a patch of purulent material covering the wound surface and this area is estimated to be around 3 cm in size. There is another area of stage II to 3 ulcer in the right lower posterior scalp area which is smaller and the bases pretty healthy without any purulent material. The scrotum was quite swollen and there is extensive erythema extending to the upper thigh areas bilaterally. No open wounds or sores. No crepitation. Chest palpated in that area. Left lower extremity has chronic ulceration yet none of these ulcers showed any active infection. The patient also has some excoriation and redness in his buttocks area related to chronic immobility as the patient is nonambulatory at this point in time. He was covered with a combination of Zosyn and vancomycin. Aquacel silver was applied to the right lower extremity wounds and ID consultation was obtained. The patient meanwhile had an ultrasound of the scrotum that showed evidence of fluid versus cellulitis. The patient stated that he was feeling chilled and feverish at home. No documented temperature for now. He denies having any chest pain. No shortness of breath. No nausea. No vomiting. No diarrhea. No constipation. No altered mentation. Family is at the bedside. Unfortunately, while doing his routine bathing, the Mcknight catheter. A mild and currently does not have a Mcknight catheter in place. In terms of his blood work, his white cell count is at 12.8. His lactic acid level is down to 1.7. His creatinine is abnormal at 2.4. The patient has chronic a to for kidney disease. He has a component of non-anion gap metabolic acidosis with a serum bicarb of 7. Based on his previous records, the patient has had infections with gram-negative and MVR oh including pseudomonal infections in the urine, wound infections including Enterobacter, Proteus and enterococcus faecalis and Klebsiella and Morganella morganii and Acinetobacter 02/14/2019, the patient is awake and alert and following commands and answering questions appropriately. Still on 0.03 g per KG per minute of norepinephrine infusion for blood pressure control. He has developed a component of non-anion gap metabolic acidosis and based on that I'm going to switch him to a bicarb drip infusion. His serum bicarb is 16. His creatinine is up to 2.8 and the patient will obviously need another Mcknight catheter insertion. He was seen by infectious disease. He was kept on a combination of Zosyn and vancomycin. Doppler of the lower extremity was negative for DVT. He is afebrile. Pulse ox is 92% on room air oxygen. White cell count is at 9.4. The patient was seen by infectious disease. Aquacel silver was applied to the right lower extremity wounds. Cellulitis of the scrotal area is also improving. Repeat urine cult ures showing Proteus species and final cultures and sensitivities are still pending for now. On today's evaluation of 02/15/2019 I'm seeing this patient for a follow-up. The patient is awake and alert. He is currently off pressors. He is on a bicarb drip and his serum bicarbonate is gradually improving. He had a Mcknight catheter reinserted yesterday. His scrotum remains quite swollen. Lower e xtremity is swollen. The ones are being taken care of locally. He is on a broad-spectrum antibiotics utilizing a combination of Zosyn and vancomycin. Infectious diseases on the case. No nausea. No vomiting. No abdominal pain. No chest pain. Altered mentation. No other significant events overnight. The white cell count is at 8.0. The patient developed an acute kidney injury probably related to an obstructive uropathy knowing that post insertion of a Mcknight catheter was significant urine output. Creatinine is at 2.5 on today's evaluation. on 02/16/2019 I'm seeing this patient for a follow-up. The patient is awake and alert. The patient is currently off pressors. He has been off pressors for the past 24 hours. I'm willing to discontinue the bicarb infusion. He was given a dose of Lasix yesterday 60 mg IV push and responded nicely. Nevertheless, he continues to be in positive fluid balance. He remains to be on IV Zosyn. Mcknight cath is in place. Urine output is adequate for now. Creatinine is stable at 2.9.he is tolerating his diet. No other significant events for now. Widely awake and alert. On 02/17/2019, the patient continues to be in significant fluid overload. Nevertheless he is off pressors. He is scrotum and lower extremity areas are quite swollen at this point in time. He is off the bicarb infusion. He is on IV Lasix 60 mg every 24 hours. I'm inclined of switching this patient a Lasix drip. When he to achieve a better negative fluid balance on this patient. Meanwhile he remains on IV Zosyn. The wound cultures showing Citrobacter and strep group G in the urine cultures showing Proteus species. ID is on the case. He is awake and alert. No signs of any respiratory distress. He is resting comfortably in bed. Nephrology is also on the case. Is on oral bicarb. Patient was reevaluated today on 02/18/2019, responded well to fluid boluses and norepinephrine, he is off pressors at present, he is actually on Lasix drip because of fluid overload. Patient is also off bicarb, remains on Lasix at 10 mg per hour drip. Urine output is excellent, he is hemodynamically stable, remains on broad-spectrum antibiotics for positive wound cultures showing Citrobacter and streptococcal infection there was also Proteus in the urine. Antibiotics are being addressed by infectious disease on the case. Patient is resting in bed, awake, alert, in no distress. Objective - Vital Signs Vital signs: Vital Signs Temp 97.8 F 02/18/19 08:00 Pulse 93 02/18/19 10:00 Resp 13 02/18/19 10:00 BP 112/75 02/18/19 10:00 Pulse Ox 96 02/18/19 10:00 Intake & Output 02/17/19 02/18/19 02/18/19 18:59 06:59 18:59 Intake Total 949.451 2592 280 Output Total 1825 3805 750 Balance -1408.333 -1985 -470 Weight 281.2 kg Intake: IV 340 220 80 NS 140 110 40 cefepime 100 furosemide 100 110 40 Intake, IV Titration 76.667 100 Amount Furosemide 100 mg In 76.667 100 Sodium Chloride 0.9% 90 ml @ 10 MG/HR 10 mls/hr IV .Q10H [facility] Rx#: [id number] Oral 1500 200 Output: Urine 1825 3805 750 Other: Voiding Method Indwelling Catheter Indwelling Catheter Indwelling Catheter # Voids 0 - Exam Physical Exam Gen.: Revealed a 53-year-old white male obese, BMI of 75, in no distress. Sitting in bed. HEENT:[Neck is supple.] [No neck masses.] [No thyromegaly.] [No JVD.]EOMI, no icterus, moist mucous membranes. Chest: [Diminished breath sounds at the bases with crackles, no rhonchi no wheezes. Cardiac Exam: [Normal S1 and S2, no S3 gallop, no murmur.] Abdomen: [Soft, nontender, no megaly, no rebound, no guarding, normal bowel sounds.] Extremities: Significant cellulitis involving both lower extremities from the feet although it up to the thighs and the groin there was also evidence of significant scrotal cellulitis and edema.Bilateral lower legs are edematous and weeping). Neurological Exam: [No focal neurologic deficit.] Skin:The patient has chronic lymphedema lower extremities bilaterally. The patient has a over the lateral aspect of the right lower extremity addition to a and stage II to 3 wound in the posterior aspect of the base of which is clean. The wound in the left lower extremity are quite superficial and noninfected this point in time. Psychiatric: Normal mood, affect and mental status examination. - Labs CBC & Chem 7: 02/18/19 05:51 02/18/19 05:51 Labs: Abnormal Lab Results - Last 24 Hours (Table) 02/17/19 02/17/19 02/17/19 Range/Units 12:02 17:12 20:46 Hgb (13.0-17.5) gm/dL MCHC (31.0-37.0) g/dL RDW (11.5-15.5) % Potassium (3.5-5.1) mmol/L BUN (9-20) mg/dL Creatinine (0.66-1.25) mg/dL Glucose (74-99) mg/dL POC Glucose (mg/dL) 123 H 111 H 101 H (75-99) mg/dL 02/18/19 02/18/19 02/18/19 Range/Units 05:51 05:51 06:46 Hgb 12.2 L (13.0-17.5) gm/dL MCHC 28.6 L (31.0-37.0) g/dL RDW 17.9 H (11.5-15.5) % Potassium 3.3 L (3.5-5.1) mmol/L BUN 51 H (9-20) mg/dL Creatinine 2.75 H (0.66-1.25) mg/dL Glucose 117 H (74-99) mg/dL POC Glucose (mg/dL) 107 H (75-99) mg/dL Microbiology - Last 24 Hours (Table) 02/12/19 23:05 Blood Culture - Preliminary Blood No Growth after 120 hours Assessment and Plan Assessment: Impression: 1 acute sepsis with hypotension requiring fluid boluses, pressors, consistent with septic shock. 2 severe cellulitis involving lower extremities and scrotum. 3 urinary tract infection secondary to Proteus mirabilis 4 chronic kidney disease with acute kidney injury, acute on chronic kidney injury secondary to sepsis and septic shock. Most likely acute tubular necrosis related. 5 chronic lower extremity cellulitis and ulceration. 6 morbid obesity BMI of 75 7 chronic atrial fibrillation 8 history of GI bleeding 9 type 2 diabetes 10 benign essential hypertension 11 non-anion gap metabolic acidosis 12 hypothyroidism 13 fluid overload, induced by fluid boluses has the patient is now on Lasix drip at 10 mg per hour. Recommendation: Continue Lasix drip, continue antibiotics, we'll continue to monitor in the ICU for the next 24 hours, patient is quite ill, and prognosis is extremely poor and guarded considering the profound cellulitis and his presentation of sepsis and septic shock. We'll continue to follow. His antibiotics are being addressed by infectious disease/Dr. Elias on the case. Patient is presently on cefepime Time with Patient: Less than 30
[2019-02-18 12:28] LABS: Glucose,Whole Blood 103 mg/dL (75-99)
[2019-02-18] MEDS: CEFEPIME 2 GM in SODIUM CHLORIDE 0.9% 100 ML IVPB SCH (17:02)
[2019-02-18] MEDS ORDERED: Potassium Replacement Protocol 1 EACH MISC MISCELLANE PRN (17:03)
[2019-02-18 17:11] LABS: Glucose,Whole Blood 106 mg/dL (75-99)
[2019-02-18] MEDS ORDERED: SODIUM CHLORIDE 0.65% NASAL SPRAY 44 ML BTL NASAL PRN (17:11)
[2019-02-18 20:50] LABS: Glucose,Whole Blood 114 mg/dL (75-99)
[2019-02-18] MEDS: diphenhydrAMINE 25 MG CAP PO PRN (21:26)
[2019-02-18] MEDS: TRIAMCINOLONE 0.1% CREAM 80 GM TUBE TOPICAL SCH (21:33)
--- NOTE | 2019-02-18 22:50 | P.PN ---
Subjective Progress Note Date: 02/18/19 53-year-old male who has morbid superobesity is brought to Hospital by EMS with a several-day history of worsening symptoms. The patient relates he was having increasing weakness, increasing swelling to his scrotum became much more painful. He also is having increasing pain to his right lower extremity. This is of great interest because the family members are able to a couple times a day get him to stand although briefly so that he can toilet. The right leg became so painful that he was having a hard time standing at all. With these increasing symptoms he agreed to be brought to hospital. He relates he has started to feel slightly better. The scrotum is still painful but less swollen. The right leg is painful but less so. He is not having fevers or chills but often does not. The patient has had full resuscitation with greater then 5 L of normal saline, and has also required epinephrine therapy that is on hold at this time. 02/18/2019 patient remains in intensive care unit, intermittently on vasopressor therapy. Urine output finally his exceeded fluid intake with a negative fluid balance today. His extensive edema destined to be slightly improved. Patient complains of severe pain to his scrotum into his lower extremities. Objective - Vital Signs Vital signs: Vital Signs Temp 97.7 F 02/18/19 21:00 Pulse 110 H 02/18/19 22:00 Resp 17 02/18/19 22:00 BP 118/67 02/18/19 22:00 Pulse Ox 96 02/18/19 22:00 Intake & Output 02/18/19 02/18/19 02/19/19 06:59 18:59 06:59 Intake Total 1820 530 161.833 Output Total 3805 2425 1190 Balance -1984 -1895 -1028.167 Weight 281.2 kg Intake: IV 220 240 80 NS 110 120 40 furosemide 110 120 40 Intake, IV Titration 100 90 81.833 Amount Furosemide 100 mg In 100 90 81.833 Sodium Chloride 0.9% 90 ml @ 10 MG/HR 10 mls/hr IV .Q10H [facility] Rx#: [id number] Oral 1500 200 Output: Urine 3805 2425 1190 Other: Voiding Method Indwelling Catheter Indwelling Catheter Indwelling Catheter # Voids 0 - Exam 53-year-old male with superobesity relates it is more comfortable HEENT: Anicteric conjunctiva are pink and moist nasal mucosa grossly intact without significant lesions, there is no thrush. Poor dentition Neck: The neck is supple without significant lymphadenopathy or thyromegaly. Lungs: Good bilateral air entry without significant crackles or wheezing. There is no significant bronchial sounds. There is no egophony or dullness. Heart: Regular rate and rhythm with an audible S1-S2, no S3 no S4. There is no significant murmur click or rub, PMI was nondisplaced. Abdomen: Obese Positive bowel sounds soft and nontender without palpable masses or organomegaly. There was no guarding or rebound. Extremities: The upper extremities do not have any lesions in the IV site left arm is about troubles. The right lower extremity shows evidence of the chronic lymphedema. He has small areas that we put on the thigh and a blue pad is in place to catch the drainage. The right calf and the lateral surfaces of his the 2 ulcerations and please see the nursing documentation regarding his 2 ulcers. Left leg has evidence of lymphedema with some drainage on the thigh. Lymphedema drainage is not unusual for him. The scrotum is very swollen and remains tender. Upon evaluation there were no open ulcerations just some moisture from oozing of the scrotal tissue. Has moisture in the fold under the large abdominal pannus. Neuro: Awake alert oriented to person place and time. There are no acute new gross focal sensory motor deficits. - Labs CBC & Chem 7: 02/18/19 05:51 02/18/19 16:02 Labs: Abnormal Lab Results - Last 24 Hours (Table) 02/18/19 02/18/19 02/18/19 Range/Units 05:51 05:51 06:46 Hgb 12.2 L (13.0-17.5) gm/dL MCHC 28.6 L (31.0-37.0) g/dL RDW 17.9 H (11.5-15.5) % Potassium 3.3 L (3.5-5.1) mmol/L BUN 51 H (9-20) mg/dL Creatinine 2.75 H (0.66-1.25) mg/dL Glucose 117 H (74-99) mg/dL POC Glucose (mg/dL) 107 H (75-99) mg/dL 02/18/19 02/18/19 02/18/19 Range/Units 12:27 16:02 17:09 Hgb (13.0-17.5) gm/dL MCHC (31.0-37.0) g/dL RDW (11.5-15.5) % Potassium 3.2 L (3.5-5.1) mmol/L BUN (9-20) mg/dL Creatinine (0.66-1.25) mg/dL Glucose (74-99) mg/dL POC Glucose (mg/dL) 103 H 106 H (75-99) mg/dL 02/18/19 Range/Units 20:49 Hgb (13.0-17.5) gm/dL MCHC (31.0-37.0) g/dL RDW (11.5-15.5) % Potassium (3.5-5.1) mmol/L BUN (9-20) mg/dL Creatinine (0.66-1.25) mg/dL Glucose (74-99) mg/dL POC Glucose (mg/dL) 114 H (75-99) mg/dL Microbiology - Last 24 Hours (Table) 02/12/19 23:05 Blood Culture - Preliminary Blood No Growth after 120 hours Laboratory Results WBC 5.7 k/uL (3.8-10.6) 02/18/19 05:51 RBC 4.40 m/uL (4.30-5.90) 02/18/19 05:51 Hgb 12.2 gm/dL (13.0-17.5) L 02/18/19 05:51 Hct 42.7 % (39.0-53.0) 02/18/19 05:51 MCV 97.0 fL (80.0-100.0) 02/18/19 05:51 MCH 27.8 pg (25.0-35.0) 02/18/19 05:51 MCHC 28.6 g/dL (31.0-37.0) L 02/18/19 05:51 RDW 17.9 % (11.5-15.5) H 02/18/19 05:51 Plt Count 210 k/uL (150-450) 02/18/19 05:51 Neutrophils % 78 % 02/17/19 06:43 Lymphocytes % 7 % 02/17/19 06:43 Monocytes % 4 % 02/17/19 06:43 Eosinophils % 10 % 02/17/19 06:43 Basophils % 0 % 02/17/19 06:43 Neutrophils # 5.2 k/uL (1.3-7.7) 02/17/19 06:43 Lymphocytes # 0.5 k/uL (1.0-4.8) L 02/17/19 06:43 Monocytes # 0.3 k/uL (0-1.0) 02/17/19 06:43 Eosinophils # 0.7 k/uL (0-0.7) 02/17/19 06:43 Basophils # 0.0 k/uL (0-0.2) 02/17/19 06:43 Hypochromasia Marked 02/18/19 05:51 Poikilocytosis Slight 02/17/19 06:43 Anisocytosis Slight 02/18/19 05:51 Macrocytosis Slight 02/18/19 05:51 PT 14.8 sec (9.0-12.0) H 02/12/19 21:55 INR 1.5 (<1.2) H 02/12/19 21:55 APTT 26.4 sec (22.0-30.0) 02/12/19 21:55 Sodium 137 mmol/L (137-145) 02/18/19 05:51 Potassium 3.2 mmol/L (3.5-5.1) L 02/18/19 16:02 Chloride 103 mmol/L (98-107) 02/18/19 05:51 Carbon Dioxide 23 mmol/L (22-30) 02/18/19 05:51 Anion Gap 11 mmol/L 02/18/19 05:51 BUN 51 mg/dL (9-20) H 02/18/19 05:51 Creatinine 2.75 mg/dL (0.66-1.25) H 02/18/19 05:51 Est GFR (CKD-EPI)AfAm 29 (>60 ml/min/1.73 sqM) 02/18/19 05:51 Est GFR (CKD-EPI)NonAf 25 (>60 ml/min/1.73 sqM) 02/18/19 05:51 Glucose 117 mg/dL (74-99) H 02/18/19 05:51 POC Glucose (mg/dL) 114 mg/dL (75-99) H 02/18/19 20:49 POC Glu [employer] ID Radha Peng 02/18/19 20:49 Plasma Lactic Acid [place] 1.7 mmol/L (0.7-2.0) 02/12/19 21:55 Calcium 8.7 mg/dL (8.4-10.2) 02/18/19 05:51 Phosphorus 5.5 mg/dL (2.5-4.5) H 02/14/19 04:55 Magnesium 2.0 mg/dL (1.6-2.3) 02/18/19 05:51 Total Bilirubin 2.5 mg/dL (0.2-1.3) H 02/14/19 04:55 AST 19 U/L (17-59) 02/14/19 04:55 ALT 12 U/L (21-72) L 02/14/19 04:55 Alkaline Phosphatase 170 U/L (38-126) H 02/14/19 04:55 Troponin I 0.014 ng/mL (0.000-0.034) 02/13/19 02:30 Total Protein 6.6 g/dL (6.3-8.2) 02/14/19 04:55 Albumin 2.9 g/dL (3.5-5.0) L 02/14/19 04:55 Urine Color [place] 02/13/19 08:13 Urine Appearance Cloudy (Clear) 02/13/19 08:13 Urine pH 5.5 (5.0-8.0) 02/13/19 08:13 Ur Specific [place] 1.020 (1.001-1.035) 02/13/19 08:13 Urine Protein 1+ (Negative) H 02/13/19 08:13 Urine Glucose (UA) Negative (Negative) 02/13/19 08:13 Urine Ketones Negative (Negative) 02/13/19 08:13 Urine Blood Moderate (Negative) H 02/13/19 08:13 Urine Nitrite Negative (Negative) 02/13/19 08:13 Urine Bilirubin 1+ (Negative) H 02/13/19 08:13 Urine Urobilinogen 3.0 mg/dL (<2.0) 02/13/19 08:13 Ur Leukocyte Esterase Large (Negative) H 02/13/19 08:13 Urine RBC 12 /hpf (0-5) H 02/13/19 08:13 Urine WBC 68 /hpf (0-5) H 02/13/19 08:13 Urine WBC Clumps Few /hpf (None) H 02/13/19 08:13 Ur Squamous Epith Cells 1 /hpf (0-4) 02/13/19 08:13 Amorphous Sediment Rare /hpf (None) H 02/13/19 08:13 Urine Bacteria Rare /hpf (None) H 02/13/19 08:13 Hyaline Casts 3 /lpf (0-2) H 02/13/19 08:13 Urine Mucus Rare /hpf (None) H 02/13/19 08:13 Ur Random Creatinine 55.8 mg/dL 02/15/19 18:25 U Random Total Protein 27 mg/dL (<12) H 02/15/19 18:25 Microbiology 02/12/19 23:05 Blood Blood Culture - Preliminary No Growth after 120 hours 02/13/19 10:35 Leg - Right Gram Stain - Final 02/13/19 10:35 Leg - Right Wound Culture - Final Beta Hemolytic Strep Group G Acinetobacter teddy/haemol 02/14/19 20:05 Urine,Catheterized Urine Culture - Final 02/13/19 00:10 Urine,Voided Urine Culture - Final Proteus Species Assessment and Plan (1) Scrotal edema Current Visit: Yes Status: Acute Code(s): N50.89 - OTHER SPECIFIED DISORDERS OF THE MALE GENITAL ORGANS SNOMED Code(s): 53188668 (2) Urinary tract infection Current Visit: Yes Status: Acute Code(s): N39.0 - URINARY TRACT INFECTION, SITE NOT SPECIFIED SNOMED Code(s): 65006126 (3) Acute on chronic renal failure Current Visit: Yes Status: Acute Code(s): N17.9 - ACUTE KIDNEY FAILURE, UNSPECIFIED; N18.9 - CHRONIC KIDNEY DISEASE, UNSPECIFIED SNOMED Code(s): 178490722 (4) Lymphedema of both lower extremities Narrative/Plan: 53-year-old male with superobesity who is generally homebound and is only able to get out of the house with his extrawide wheelchair in the family van. It however is an endeavor for the family to accomplish this. The patient cannot go to any primary care physician offices and that they do not have equipment to accommodate him. He was seen for several visits the wound healing Center but it was in extreme difficulty with transportation via EMS and constantly is cared for by the visiting physician on a quarterly basis. He does have a home nurse who does help with wound care. The patient does have some ulcerations in the right lateral leg and Aquacel silver is being utilized seems to be helpful. We'll ask for Covan so that the lymphedema wraps can be kept in place this works much better for him than Artur wraps. Intra-dry for the folds to try to help treat them dry For pneumonic therapy based on his recent cultures also will be an adequate choice with greatest concern to be a urinary tract infection. Pseudomonas was most recent pathogen. Given his acute on chronic renal failure would avoid further doses of vancomycin at this time. If there is any further concern about MRSA or other resistant gram-positive organisms daptomycin will be considered. The patient is on the appropriate bariatric air bed Dietary consult is in process The patient has had evidence of sepsis with relative hypotension and has been on vasopressor therapy which is now on hold. Hopefully with the current resuscitation efforts he will not require further vasopressor therapy. The source of sepsis is still most likely the urinary system at this time based upon current findings. Of concern is the patient's difficulty with trying to stand because some pain to his right leg. Given his level of discomfort would like to evaluate for thrombus although would not be possible. 02/18/2019 over the weekend the patient's cultures did finalize, Acinetobacter baumannii was isolated. Unasyn is not available, and on-call applied cefepime. Proteus was lasted from the urine as the most likely source of his sepsis for which the cefepime would be also effective. Discharge plan is in process and remains unclear at this time. Ability to perform home intravenous antibiotictherapy will need to be investigated. Local wound care continues. Patient has been seen by urology and a Mcknight catheter was able to be applied although very difficult in nature. Proteus isolated from the urine and as noted likely pathogen of current sepsis. Current Visit: Yes Status: Acute Code(s): I89.0 - LYMPHEDEMA, NOT ELSEWHERE CLASSIFIED SNOMED Code(s): 82701964595387180 (5) Venous stasis ulcer of right lower leg with edema of right lower leg Current Visit: Yes Status: Acute Code(s): I83.019 - VARICOSE VEINS OF RIGHT LOWER EXTREMITY W ULCER OF UNSP SITE; I83.891 - VARICOSE VEINS OF R LOW EXTREM WITH OTHER COMPLICATIONS; L97.919 - NON-PRS CHRONIC ULC UNSP PRT OF R LOW LEG W UNSP SEVERITY; R60.9 - EDEMA, UNSPECIFIED SNOMED Code(s): 71825971928467941
[2019-02-19] MEDS: NOREPINEPHRINE 4 MG in SODIUM CHLORIDE 0.9% 250 ML IV SCH ×7 (01:51→22:30)
[2019-02-19] MEDS: HYDROcodone/APAP 10-325MG 1 EACH TAB PO PRN ×4 (04:10→23:26)
[2019-02-19] MEDS: LEVOTHYROXINE 75 MCG TAB PO SCH (06:25)
[2019-02-19] MEDS: INSULIN ASPART (NovoLOG) 100 UNIT/ML VIAL SQ SCH ×4 (06:28→20:26)
[2019-02-19 06:29] LABS: Glucose,Whole Blood 100 mg/dL (75-99)
--- NOTE | 2019-02-19 06:52 | P.PN ---
Subjective On-call hospitalist covering for Dr. Canas Date of service is 02/15/2019 This is a pleasant 52 years old male with past medical history diabetes m ellitus, atrial fibrillation, GERD, hypertension, morbid obesity, chronic bilateral lower extremity lymphedema for history of GI bleed related to Coumadin therapy, chronic kidney disease. Presents with signs symptoms of cellulitis of the lower extremity and scrotum. Wound culture is growing beta hemolytic streptococci and gram-negative bacilli. Urine culture is positive for Proteus species. He is status post cystoscopy and Mcknight catheter insertion for urinary retention. Patient on antibiotics as per infectious disease recommendation, he is on Zosyn on the day of this service. Also he got doses of vancomycin previously. Blood pressure on the low side. He needed Levothroid previously but now he is off of pressors 02/16/2019 pt is in the ICU, he is fully awake and alert, he is on zosyn of his cellulitis of his scrotum and lower extremities ,and looks improving, he is off pressors , metoprolol was added to day for better control of his heart rate. glocose is controlled . wbc 6.8 k. Creatinine is 2.9 , he is afebrile 02/17/2019 Patient remains in the ICU, he has history of swelling in his lower extremity and scrotal from his history of lymphedema and superimposed infection. His blood pressure is improving gradually. He is on epinephrine now. He is fully awake and oriented with no chest pain or dyspnea. His chest x-ray showed mild pulmonary congestion and possible retrocardiac infiltrate with cardiomegaly as per radiologist's report. Patient antibiotics was switched from Zosyn to cefepime based on the wound culture results as per infectious disease team who followed the case closely. Patient was started on Lasix drip. Creatinine is stable from 2.7 02/18/2019 Patient is seen today in the ICU. His erythema in the lower extremity is slightly less compared to yesterday. Still have tenderness in his extremities and scrotal area for infection. He is fully awake and oriented with no chest pain or dyspnea. Has some regurgitation and looks like eczema at the blood pressure cuff site, steroid ointment is ordered. Is currently on cefepime for his infection, and infectious disease team are following the patient closely. WBC is 5.7, patient is afebrile. He is saturating 93% on 2 L oxygen. Creatinine 2.7 Nephrology input is appreciated. Objective - Vital Signs Vital signs: Vital Signs Temp 97.9 F 02/19/19 04:00 Pulse 96 02/19/19 06:00 Resp 11 L 02/19/19 06:00 BP 112/68 02/19/19 06:00 Pulse Ox 93 L 02/19/19 06:00 Intake & Output 02/18/19 02/18/19 02/19/19 06:59 18:59 06:59 Intake Total 1820 530 321.833 Output Total 3805 2425 2655 Balance -1984.167 Weight 281.2 kg Intake: IV 220 240 240 NS 110 120 120 furosemide 110 120 120 Intake, IV Titration 100 90 81.833 Amount Furosemide 100 mg In 100 90 81.833 Sodium Chloride 0.9% 90 ml @ 10 MG/HR 10 mls/hr IV .Q10H [facility] Rx#: [id number] Oral 1500 200 Output: Urine 3805 2425 2655 Other: Voiding Method Indwelling Catheter Indwelling Catheter Indwelling Catheter # Voids 0 - Exam GENERAL: The patient is alert and oriented x3, not in any acute distress. Morbidly obese HEENT: Pupils are round and equally reacting to light. EOMI. No scleral icterus. No conjunctival pallor. Normocephalic, atraumatic. No pharyngeal erythema. No thyromegaly. CARDIOVASCULAR: S1 and S2 present. No murmurs, rubs, or gallops. PULMONARY: Chest is clear to auscultation, no wheezing or crackles. -ABDOMEN: Soft, nontender, nondistended, normoactive bowel sounds. No palpable organomegaly. Sequential swelling and erythema, tenderness. Mcknight catheter is in a Place MUSCULOSKELETAL: No joint swelling or deformity. -EXTREMITIES: No cyanosis, clubbing, or pedal edema. Extensive swelling and erythema, with yellow scales on top of both lower extremity, the top of his chronic lymphedema NEUROLOGICAL: Gross neurological examination did not reveal any focal deficits. SKIN: No rashes. - Labs CBC & Chem 7: 02/18/19 05:51 02/18/19 16:02 Labs: Abnormal Lab Results - Last 24 Hours (Table) 02/18/19 02/18/19 02/18/19 Range/Units 06:46 12:27 16:02 Potassium 3.2 L (3.5-5.1) mmol/L POC Glucose (mg/dL) 107 H 103 H (75-99) mg/dL 02/18/19 02/18/19 02/19/19 Range/Units 17:09 20:49 06:27 Potassium (3.5-5.1) mmol/L POC Glucose (mg/dL) 106 H 114 H 100 H (75-99) mg/dL Microbiology - Last 24 Hours (Table) 02/12/19 23:05 Blood Culture - Final Blood No Growth after 144 hours Assessment and Plan Assessment: Cellulitis of the lower extremity, more on the right than left with scrotal cellulitis Systemic inflammatory response syndrome with tachycardia, leukocytosis Severe Sepsis secondary to above, with acute kidney injury and hypotension Contact dermatitis from the blood pressure cuffs Urinary retention Acute kidney injury on chronic kidney disease History of atrial fibrillation Chronic kidney disease, stage III Morbid obesity Diabetes mellitus Hypertension His history of GERD GI bleed related to Coumadin therapy Plan: This is a pleasant 53 years old male who presents because of cellulitis of the lower extremity and scrotum. Continue with antibiotics as per infectious disease recommendation. Also has been followed by several consultants including the pulmonary/critical care team, transitional nurse, and urologist.Labs and medication were reviewed.. Continue same treatment. Continue with symptomatic treatment. Resume home medication. Monitor lytes and vitals. DVT and GI prophylaxis. Further recommendations of the clinical course of the patient DVT prophylaxis: Subcutaneous heparin GI Prophylaxis: Pepcid PT/OT: Pending Prognosis is guarded
[2019-02-19 06:58] LABS: Anisocytosis Slight; HCT 42.8 % (39.0-53.0); HGB 12.4 gm/dL (13.0-17.5); Hypochromasia Marked; MCH 28.3 pg (25.0-35.0); MCHC 29.1 g/dL (31.0-37.0); MCV 97.2 fL (80.0-100.0); Macrocytosis Slight; Mean Platelet Volume 7.8; Platelet Count 229 k/uL (150-450); RDW 17.7 % (11.5-15.5); WBC 4.2 k/uL (3.8-10.6)
[2019-02-19] MEDS: FUROSEMIDE 100 MG in SODIUM CHLORIDE 0.9% 90 ML IV SCH ×2 (07:06→16:57)
[2019-02-19 07:33] LABS: Calcium 8.5 mg/dL (8.4-10.2); Potassium 3.5 mmol/L (3.5-5.1)
--- NOTE | 2019-02-19 07:37 | XR ---
EXAMINATION TYPE: XR chest 1V portable DATE OF EXAM: 02/19/2019 COMPARISON: Prior chest x-ray 02/18/2019 HISTORY: Pulmonary edema TECHNIQUE: Single frontal view of the chest is obtained. FINDINGS: Heart remains enlarged. No pneumothorax. Difficult to exclude retrocardiac density, patien t is rotated. Suspect some patchy basilar density on the right. IMPRESSION: Basilar atelectasis versus edema or possibly pneumonia. Difficult to exclude small effus ion.
[2019-02-19] MEDS: METOPROLOL TARTRATE 25 MG TAB PO SCH ×2 (09:08→20:10)
[2019-02-19] MEDS: DOCUSATE 100 MG CAP PO SCH ×2 (09:08→20:08)
[2019-02-19] MEDS: SODIUM BICARBONATE TAB 650 MG TAB PO SCH ×4 (09:08→20:10)
[2019-02-19] MEDS: HEPARIN SODIUM,PORCINE 5,000 UNIT/ML 1 ML VIAL SQ SCH ×3 (09:08→22:57)
[2019-02-19] MEDS: ALLOPURINOL 300 MG TAB PO SCH (09:08)
[2019-02-19] MEDS: FERROUS SULFATE 325 MG TAB PO SCH ×2 (09:08→20:11)
[2019-02-19] MEDS: PANTOPRAZOLE 40 MG TABLET PO SCH (09:08)
[2019-02-19] MEDS: TRIAMCINOLONE 0.1% CREAM 80 GM TUBE TOPICAL SCH ×2 (09:09→20:12)
--- NOTE | 2019-02-19 10:32 | P.PN ---
Subjective Patient is seen in follow-up for acute kidney injury. Renal function is stable. Creatinine 2.72 today. Patient is maintained on Lasix drip at 10 mL an hour. He is nonoliguric. Also being treated for UTI. Urine culture positive for Proteus. Denies chest pain or shortness of breath. Oral intake is good. No vomiting or diarrhea. Vital signs are stable. General: The patient appeared well nourished and normally developed. HEENT: Head exam is unremarkable. Neck is without jugular venous distension. LUNGS: Breath sounds decreased. HEART: Rate and Rhythm are regular. First and second heart sounds normal. No murmurs, rubs or gallops. ABDOMEN: Bowel sounds present. Morbidly obese. EXTREMITITES: 2+ edema. Chronic skin changes noted. Objective - Vital Signs Vital signs: Vital Signs Temp 97.9 F 02/19/19 08:00 Pulse 102 H 02/19/19 09:00 Resp 13 02/19/19 09:00 BP 114/80 02/19/19 09:00 Pulse Ox 91 L 02/19/19 09:00 Intake & Output 02/18/19 02/19/19 02/19/19 18:59 06:59 18:59 Intake Total 530 321.833 652.167 Output Total 2425 2655 575 Balance -1895 -2333.167 77.167 Weight 276.8 kg Intake: IV 240 240 60 NS 120 120 30 furosemide 120 120 30 Intake, IV Titration 90 81.833 92.167 Amount Furosemide 100 mg In 90 81.833 92.167 Sodium Chloride 0.9% 90 ml @ 10 MG/HR 10 mls/hr IV .Q10H [facility] Rx#: [id number] Oral 200 500 Output: Urine 2425 2655 575 Other: Voiding Method Indwelling Catheter Indwelling Catheter Indwelling Catheter - Labs CBC & Chem 7: 02/19/19 06:14 02/19/19 06:14 Labs: Abnormal Lab Results - Last 24 Hours (Table) 02/18/19 02/18/19 02/18/19 Range/Units 12:27 16:02 17:09 Hgb (13.0-17.5) gm/dL MCHC (31.0-37.0) g/dL RDW (11.5-15.5) % Potassium 3.2 L (3.5-5.1) mmol/L BUN (9-20) mg/dL Creatinine (0.66-1.25) mg/dL Glucose (74-99) mg/dL POC Glucose (mg/dL) 103 H 106 H (75-99) mg/dL 02/18/19 02/19/19 02/19/19 Range/Units 20:49 06:14 06:14 Hgb 12.4 L (13.0-17.5) gm/dL MCHC 29.1 L (31.0-37.0) g/dL RDW 17.7 H (11.5-15.5) % Potassium (3.5-5.1) mmol/L BUN 55 H (9-20) mg/dL Creatinine 2.72 H (0.66-1.25) mg/dL Glucose 105 H (74-99) mg/dL POC Glucose (mg/dL) 114 H (75-99) mg/dL 02/19/19 Range/Units 06:27 Hgb (13.0-17.5) gm/dL MCHC (31.0-37.0) g/dL RDW (11.5-15.5) % Potassium (3.5-5.1) mmol/L BUN (9-20) mg/dL Creatinine (0.66-1.25) mg/dL Glucose (74-99) mg/dL POC Glucose (mg/dL) 100 H (75-99) mg/dL Microbiology - Last 24 Hours (Table) 02/12/19 23:05 Blood Culture - Final Blood No Growth after 144 hours Assessment and Plan Plan: Assessment: 1. Acute kidney injury. Initially due to hypotension and sepsis. No other appears to be a component of cardiorenal syndrome. Creatinine 2.72 today. 2. Chronic kidney disease stage III. Creatinine from November 2018 was near 2. Etiologies nephrosclerosis and component of diabetic kidney disease as he does have proteinuria. 3. Morbid obesity. 4. UTI with urine culture positive for Proteus maintained on antibiotics. 5. Hypokalemia secondary to diuresis. Rule out magnesium deficiency. 6. Volume overload. 7. Metabolic acidosis secondary to acute kidney injury. Maintain on oral sodium bicarbonate. Plan: Maintain Lasix drip at 10 mL an hour for now. Potassium being replaced. Continue to monitor renal function and urine output.
[2019-02-19] MEDS: POTASSIUM CHLORIDE ER 20 MEQ TAB.ER PO SCH ×4 (11:41→21:55)
[2019-02-19 12:14] LABS: Glucose,Whole Blood 119 mg/dL (75-99)
--- NOTE | 2019-02-19 13:43 | P.PN ---
Subjective Progress Note Date: 02/19/19 Principal diagnosis: Acute sepsis from extensive cellulitis involving scrotum and lower extremities. Acute septic shock. This is a morbidly obese 53-year-old male patient who came into the emergency department yesterday because of scrotal pain and swelling. At the same time the patient looked to be quite dehydrated and hypotensive and he was suspected to be and septic shock. In the emergency department, the patient was given 10 a half liters of IV fluids. Following that, he continued to be hypotensive with a lower systolic blood pressure and based on that the patient was started on norepinephrine infusion. Earlier this morning. Norepinephrine infusion was running at 15 mics per minute.. The patient was still having hypotension and the patient was maintained on a fluid infusion rate of 100 mL an hour. A Mcknight catheter was inserted by urology. This was a very difficult insertion. A cystoscope was used to insert the catheter. The patient had a swollen testicle and a very sunken penis with the penile orifice was not adequately visualized. Ultimately the catheter was inserted and only 50 mL of urine output was obtained. Urine was was possibly infected knowing that there was increased white cell count and clumps and bacteria. It was sent for cultures. The patient has very large lower extremities and they are lymphedematous and there is chronic ulceration in lower oximetry is bilaterally. He has been followed up at the wound center. Among his chronic wounds, there is a area and the lateral aspect of the right lower extremity was quite macerated and there is a patch of purulent material covering the wound surface and this area is estimated to be around 3 cm in size. There is another area of stage II to 3 ulcer in the right lower posterior scalp area which is smaller and the bases pretty healthy without any purulent material. The scrotum was quite swollen and there is extensive erythema extending to the upper thigh areas bilaterally. No open wounds or sores. No crepitation. Chest palpated in that area. Left lower extremity has chronic ulceration yet none of these ulcers showed any active infection. The patient also has some excoriation and redness in his buttocks area related to chronic immobility as the patient is nonambulatory at this point in time. He was covered with a combination of Zosyn and vancomycin. Aquacel silver was applied to the right lower extremity wounds and ID consultation was obtained. The patient meanwhile had an ultrasound of the scrotum that showed evidence of fluid versus cellulitis. The patient stated that he was feeling chilled and feverish at home. No documented temperature for now. He denies having any chest pain. No shortness of breath. No nausea. No vomiting. No diarrhea. No constipation. No altered mentation. Family is at the bedside. Unfortunately, while doing his routine bathing, the Mcknight catheter. A mild and currently does not have a Mcknight catheter in place. In terms of his blood work, his white cell count is at 12.8. His lactic acid level is down to 1.7. His creatinine is abnormal at 2.4. The patient has chronic a to for kidney disease. He has a component of non-anion gap metabolic acidosis with a serum bicarb of 7. Based on his previous records, the patient has had infections with gram-negative and MVR oh including pseudomonal infections in the urine, wound infections including Enterobacter, Proteus and enterococcus faecalis and Klebsiella and Morganella morganii and Acinetobacter 02/14/2019, the patient is awake and alert and following commands and answering questions appropriately. Still on 0.03 g per KG per minute of norepinephrine infusion for blood pressure control. He has developed a component of non-anion gap metabolic acidosis and based on that I'm going to switch him to a bicarb drip infusion. His serum bicarb is 16. His creatinine is up to 2.8 and the patient will obviously need another Mcknight catheter insertion. He was seen by infectious disease. He was kept on a combination of Zosyn and vancomycin. Doppler of the lower extremity was negative for DVT. He is afebrile. Pulse ox is 92% on room air oxygen. White cell count is at 9.4. The patient was seen by infectious disease. Aquacel silver was applied to the right lower extremity wounds. Cellulitis of the scrotal area is also improving. Repeat urine cult ures showing Proteus species and final cultures and sensitivities are still pending for now. On today's evaluation of 02/15/2019 I'm seeing this patient for a follow-up. The patient is awake and alert. He is currently off pressors. He is on a bicarb drip and his serum bicarbonate is gradually improving. He had a Mcknight catheter reinserted yesterday. His scrotum remains quite swollen. Lower e xtremity is swollen. The ones are being taken care of locally. He is on a broad-spectrum antibiotics utilizing a combination of Zosyn and vancomycin. Infectious diseases on the case. No nausea. No vomiting. No abdominal pain. No chest pain. Altered mentation. No other significant events overnight. The white cell count is at 8.0. The patient developed an acute kidney injury probably related to an obstructive uropathy knowing that post insertion of a Mcknight catheter was significant urine output. Creatinine is at 2.5 on today's evaluation. on 02/16/2019 I'm seeing this patient for a follow-up. The patient is awake and alert. The patient is currently off pressors. He has been off pressors for the past 24 hours. I'm willing to discontinue the bicarb infusion. He was given a dose of Lasix yesterday 60 mg IV push and responded nicely. Nevertheless, he continues to be in positive fluid balance. He remains to be on IV Zosyn. Mcknight cath is in place. Urine output is adequate for now. Creatinine is stable at 2.9.he is tolerating his diet. No other significant events for now. Widely awake and alert. On 02/17/2019, the patient continues to be in significant fluid overload. Nevertheless he is off pressors. He is scrotum and lower extremity areas are quite swollen at this point in time. He is off the bicarb infusion. He is on IV Lasix 60 mg every 24 hours. I'm inclined of switching this patient a Lasix drip. When he to achieve a better negative fluid balance on this patient. Meanwhile he remains on IV Zosyn. The wound cultures showing Citrobacter and strep group G in the urine cultures showing Proteus species. ID is on the case. He is awake and alert. No signs of any respiratory distress. He is resting comfortably in bed. Nephrology is also on the case. Is on oral bicarb. Patient was reevaluated today on 02/18/2019, responded well to fluid boluses and norepinephrine, he is off pressors at present, he is actually on Lasix drip because of fluid overload. Patient is also off bicarb, remains on Lasix at 10 mg per hour drip. Urine output is excellent, he is hemodynamically stable, remains on broad-spectrum antibiotics for positive wound cultures showing Citrobacter and streptococcal infection there was also Proteus in the urine. Antibiotics are being addressed by infectious disease on the case. Patient is resting in bed, awake, alert, in no distress. Reevaluated today on 02/19/2019, patient is feeling better today, hemodynamically stable, remains off pressors, remains on Lasix drip, seems to be responding well to treatment. Breathing a lot easier, he is on few liters nasal cannula. Remains on antibiotics as per infectious disease, and considering the patient is hemodynamically stable, I plan to transfer the patient out of the ICU to a cardiac floor and will continue the Lasix drip as ordered. In the meantime continue antibiotics. Labs from today were all reviewed had a relatively normal CBC and normal electrolytes, BUN is 55 creatinine 2.7, improving compared to the last few days. Objective - Vital Signs Vital signs: Vital Signs Temp 97.9 F 02/19/19 08:00 Pulse 80 02/19/19 11:00 Resp 10 L 02/19/19 11:00 BP 118/77 02/19/19 11:00 Pulse Ox 95 02/19/19 11:00 Intake & Output 02/18/19 02/19/19 02/19/19 18:59 06:59 18:59 Intake Total 530 491.561 8028.167 Output Total 2425 2655 1275 Balance -1895 -2333.167 -62.833 Weight 276.8 kg Intake: IV 240 240 120 NS 120 120 60 furosemide 120 120 60 Intake, IV Titration 90 81.833 92.167 Amount Furosemide 100 mg In 90 81.833 92.167 Sodium Chloride 0.9% 90 ml @ 10 MG/HR 10 mls/hr IV .Q10H [facility] Rx#: [id number] Oral 200 1000 Output: Urine 2425 2655 1275 Other: Voiding Method Indwelling Catheter Indwelling Catheter Indwelling Catheter - Exam Physical Exam Gen.: Revealed a 53-year-old white male obese, BMI of 75, in no distress. Sitting in bed. HEENT:[Neck is supple.] [No neck masses.] [No thyromegaly.] [No JVD.]EOMI, no icterus, moist mucous membranes. Chest: [Diminished breath sounds at the bases with crackles, no rhonchi no wheezes. Cardiac Exam: [Normal S1 and S2, no S3 gallop, no murmur.] Abdomen: [Soft, nontender, no megaly, no rebound, no guarding, normal bowel sounds.] Extremities: Significant cellulitis involving both lower extremities from the feet although it up to the thighs and the groin there was also evidence of significant scrotal cellulitis and edema.Bilateral lower legs are edematous and weeping). Neurological Exam: [No focal neurologic deficit.] Skin:The patient has chronic lymphedema lower extremities bilaterally. The patient has a over the lateral aspect of the right lower extremity addition to a and stage II to 3 wound in the posterior aspect of the base of which is clean. The wound in the left lower extremity are quite superficial and noninfected this point in time. Psychiatric: Normal mood, affect and mental status examination. - Labs CBC & Chem 7: 02/19/19 06:14 02/19/19 06:14 Labs: Abnormal Lab Results - Last 24 Hours (Table) 02/18/19 02/18/19 02/18/19 Range/Units 16:02 17:09 20:49 Hgb (13.0-17.5) gm/dL MCHC (31.0-37.0) g/dL RDW (11.5-15.5) % Potassium 3.2 L (3.5-5.1) mmol/L BUN (9-20) mg/dL Creatinine (0.66-1.25) mg/dL Glucose (74-99) mg/dL POC Glucose (mg/dL) 106 H 114 H (75-99) mg/dL 02/19/19 02/19/19 02/19/19 Range/Units 06:14 06:14 06:27 Hgb 12.4 L (13.0-17.5) gm/dL MCHC 29.1 L (31.0-37.0) g/dL RDW 17.7 H (11.5-15.5) % Potassium (3.5-5.1) mmol/L BUN 55 H (9-20) mg/dL Creatinine 2.72 H (0.66-1.25) mg/dL Glucose 105 H (74-99) mg/dL POC Glucose (mg/dL) 100 H (75-99) mg/dL 02/19/19 Range/Units 12:13 Hgb (13.0-17.5) gm/dL MCHC (31.0-37.0) g/dL RDW (11.5-15.5) % Potassium (3.5-5.1) mmol/L BUN (9-20) mg/dL Creatinine (0.66-1.25) mg/dL Glucose (74-99) mg/dL POC Glucose (mg/dL) 119 H (75-99) mg/dL Microbiology - Last 24 Hours (Table) 02/12/19 23:05 Blood Culture - Final Blood No Growth after 144 hours Assessment and Plan Assessment: Impression: 1 acute sepsis with hypotension requiring fluid boluses, pressors, consistent with septic shock. 2 severe cellulitis involving lower extremities and scrotum. 3 urinary tract infection secondary to Proteus mirabilis 4 chronic kidney disease with acute kidney injury, acute on chronic kidney injur y secondary to sepsis and septic shock. Most likely acute tubular necrosis related. 5 chronic lower extremity cellulitis and ulceration. 6 morbid obesity BMI of 75 7 chronic atrial fibrillation 8 history of GI bleeding 9 type 2 diabetes 10 benign essential hypertension 11 non-anion gap metabolic acidosis 12 hypothyroidism 13 fluid overload, remains on Lasix drip. Recommendation: Continue present supportive care measures, continue antibiotics, diuretics, his antibiotics are being addressed by infectious disease on the case, patient is being followed by many consultants, at least at this point I don't believe the patient needs to be in the ICU, I will arrange for him to transfer to a monitor bed on selective. We will continue to follow. Prognosis is definitely guarded. Time with Patient: Less than 30
[2019-02-19] MEDS: CEFEPIME 2 GM in SODIUM CHLORIDE 0.9% 100 ML IVPB SCH (16:55)
--- NOTE | 2019-02-19 16:57 | P.PN ---
Subjective On-call hospitalist covering for Dr. Canas Date of service is 02/15/2019 This is a pleasant 52 years old male with past medical history diabetes m ellitus, atrial fibrillation, GERD, hypertension, morbid obesity, chronic bilateral lower extremity lymphedema for history of GI bleed related to Coumadin therapy, chronic kidney disease. Presents with signs symptoms of cellulitis of the lower extremity and scrotum. Wound culture is growing beta hemolytic streptococci and gram-negative bacilli. Urine culture is positive for Proteus species. He is status post cystoscopy and Mcknight catheter insertion for urinary retention. Patient on antibiotics as per infectious disease recommendation, he is on Zosyn on the day of this service. Also he got doses of vancomycin previously. Blood pressure on the low side. He needed Levothroid previously but now he is off of pressors 02/16/2019 pt is in the ICU, he is fully awake and alert, he is on zosyn of his cellulitis of his scrotum and lower extremities ,and looks improving, he is off pressors , metoprolol was added to day for better control of his heart rate. glocose is controlled . wbc 6.8 k. Creatinine is 2.9 , he is afebrile 02/17/2019 Patient remains in the ICU, he has history of swelling in his lower extremity and scrotal from his history of lymphedema and superimposed infection. His blood pressure is improving gradually. He is on epinephrine now. He is fully awake and oriented with no chest pain or dyspnea. His chest x-ray showed mild pulmonary congestion and possible retrocardiac infiltrate with cardiomegaly as per radiologist's report. Patient antibiotics was switched from Zosyn to cefepime based on the wound culture results as per infectious disease team who followed the case closely. Patient was started on Lasix drip. Creatinine is stable from 2.7 02/18/2019 Patient remains in the ICU, his cellulitis in the scrotum and extremity looks the same, patient is currently on antibiotics as per infectious disease recommendation. Patient have some pain issues at the infection site. Patient has been followed by pulmonary/critical care team. Objective - Vital Signs Vital signs: Vital Signs Temp 97.9 F 02/18/19 16:00 Pulse 87 02/18/19 18:00 Resp 12 02/18/19 18:00 BP 123/83 02/18/19 18:00 Pulse Ox 96 02/18/19 18:00 Intake & Output 02/18/19 02/18/19 02/19/19 06:59 18:59 06:59 Intake Total 1820 530 20 Output Total 3805 2425 200 Balance -1984 Weight 281.2 kg Intake: IV 220 240 20 NS 110 120 10 furosemide 110 120 10 Intake, IV Titration 100 90 Amount Furosemide 100 mg In 100 90 Sodium Chloride 0.9% 90 ml @ 10 MG/HR 10 mls/hr IV .Q10H [facility] Rx#: [id number] Oral 1500 200 Output: Urine 3805 2425 200 Other: Voiding Method Indwelling Catheter Indwelling Catheter # Voids 0 - Exam GENERAL: The patient is alert and oriented x3, not in any acute distress. Morbidly obese HEENT: Pupils are round and equally reacting to light. EOMI. No scleral icterus. No conjunctival pallor. Normocephalic, atraumatic. No pharyngeal erythema. No thyromegaly. CARDIOVASCULAR: S1 and S2 present. No murmurs, rubs, or gallops. PULMONARY: Chest is clear to auscultation, no wheezing or crackles. -ABDOMEN: Soft, nontender, nondistended, normoactive bowel sounds. No palpable organomegaly. Sequential swelling and erythema, tenderness. Mcknight catheter is in a Place MUSCULOSKELETAL: No joint swelling or deformity. -EXTREMITIES: No cyanosis, clubbing, or pedal edema. Extensive swelling and erythema, with yellow scales on top of both lower extremity, the top of his chronic lymphedema NEUROLOGICAL: Gross neurological examination did not reveal any focal deficits. SKIN: No rashes. - Labs CBC & Chem 7: 02/19/19 06:14 02/19/19 06:14 Labs: Abnormal Lab Results - Last 24 Hours (Table) 02/17/19 02/18/19 02/18/19 Range/Units 20:46 05:51 05:51 Hgb 12.2 L (13.0-17.5) gm/dL MCHC 28.6 L (31.0-37.0) g/dL RDW 17.9 H (11.5-15.5) % Potassium 3.3 L (3.5-5.1) mmol/L BUN 51 H (9-20) mg/dL Creatinine 2.75 H (0.66-1.25) mg/dL Glucose 117 H (74-99) mg/dL POC Glucose (mg/dL) 101 H (75-99) mg/dL 02/18/19 02/18/19 02/18/19 Range/Units 06:46 12:27 16:02 Hgb (13.0-17.5) gm/dL MCHC (31.0-37.0) g/dL RDW (11.5-15.5) % Potassium 3.2 L (3.5-5.1) mmol/L BUN (9-20) mg/dL Creatinine (0.66-1.25) mg/dL Glucose (74-99) mg/dL POC Glucose (mg/dL) 107 H 103 H (75-99) mg/dL 02/18/19 Range/Units 17:09 Hgb (13.0-17.5) gm/dL MCHC (31.0-37.0) g/dL RDW (11.5-15.5) % Potassium (3.5-5.1) mmol/L BUN (9-20) mg/dL Creatinine (0.66-1.25) mg/dL Glucose (74-99) mg/dL POC Glucose (mg/dL) 106 H (75-99) mg/dL Microbiology - Last 24 Hours (Table) 02/12/19 23:05 Blood Culture - Preliminary Blood No Growth after 120 hours Assessment and Plan Assessment: Cellulitis of the lower extremity, more on the right than left with scrotal cellulitis Systemic inflammatory response syndrome with tachycardia, leukocytosis Severe Sepsis secondary to above, with acute kidney injury and hypotension Contact dermatitis from the blood pressure cuffs Urinary retention Acute kidney injury on chronic kidney disease History of atrial fibrillation Chronic kidney disease, stage III Morbid obesity Diabetes mellitus Hypertension His history of GERD GI bleed related to Coumadin therapy Plan: This is a pleasant 53 years old male who presents because of cellulitis of the lower extremity and scrotum. Continue with antibiotics as per infectious disease recommendation. Also has been followed by several consultants including the pulmonary/critical care team, spring assembler supervisor, and urologist.Labs and medication were reviewed.. Continue same treatment. Continue with symptomatic treatment. Resume home medication. Monitor lytes and vitals. DVT and GI prophylaxis. Further recommendations of the clinical course of the patient DVT prophylaxis: Subcutaneous heparin GI Prophylaxis: Pepcid PT/OT: Pending Prognosis is guarded
[2019-02-19 17:13] LABS: Glucose,Whole Blood 102 mg/dL (75-99)
[2019-02-19] MEDS ORDERED: Potassium Replacement Protocol 1 EACH MISC MISCELLANE PRN (18:56)
[2019-02-19] MEDS: diphenhydrAMINE 25 MG CAP PO PRN (20:15)
[2019-02-19 20:27] LABS: Glucose,Whole Blood 159 mg/dL (75-99)
[2019-02-20] MEDS: NOREPINEPHRINE 4 MG in SODIUM CHLORIDE 0.9% 250 ML IV SCH ×3 (01:03→16:52)
[2019-02-20] MEDS: FUROSEMIDE 100 MG in SODIUM CHLORIDE 0.9% 90 ML IV SCH ×3 (01:33→22:00)
[2019-02-20] MEDS: diphenhydrAMINE 25 MG CAP PO PRN (04:47)
[2019-02-20] MEDS: HYDROcodone/APAP 10-325MG 1 EACH TAB PO PRN ×3 (05:35→18:26)
[2019-02-20] MEDS: LEVOTHYROXINE 75 MCG TAB PO SCH (05:35)
[2019-02-20 05:39] LABS: Anisocytosis Slight; HCT 41.5 % (39.0-53.0); HGB 12.2 gm/dL (13.0-17.5); Hypochromasia Marked; MCH 28.3 pg (25.0-35.0); MCHC 29.4 g/dL (31.0-37.0); MCV 96.1 fL (80.0-100.0); Macrocytosis Slight; Mean Platelet Volume 9.1; Platelet Count 223 k/uL (150-450); RBC 4.31 m/uL (4.30-5.90); RDW 17.7 % (11.5-15.5); WBC 4.2 k/uL (3.8-10.6)
[2019-02-20 05:59] LABS: Calcium 8.5 mg/dL (8.4-10.2); Magnesium 1.8 mg/dL (1.6-2.3); Potassium 3.1 mmol/L (3.5-5.1)
[2019-02-20] MEDS: POTASSIUM CHLORIDE ER 20 MEQ TAB.ER PO SCH ×4 (06:15→21:53)
[2019-02-20] MEDS: MAGNESIUM SULFATE-D5W PMX 1 GM in DEXTROSE/WATER 1 100ML.BAG IVPB SCH ×2 (06:15→07:20)
[2019-02-20 06:30] LABS: Glucose,Whole Blood 104 mg/dL (75-99)
[2019-02-20] MEDS: INSULIN ASPART (NovoLOG) 100 UNIT/ML VIAL SQ SCH ×4 (06:48→22:02)
[2019-02-20] MEDS: METOPROLOL TARTRATE 25 MG TAB PO SCH ×2 (08:33→21:54)
[2019-02-20] MEDS: PANTOPRAZOLE 40 MG TABLET PO SCH (08:33)
[2019-02-20] MEDS: ALLOPURINOL 300 MG TAB PO SCH (08:33)
[2019-02-20] MEDS: FERROUS SULFATE 325 MG TAB PO SCH ×2 (08:34→21:54)
[2019-02-20] MEDS: HEPARIN SODIUM,PORCINE 5,000 UNIT/ML 1 ML VIAL SQ SCH ×3 (08:34→23:22)
[2019-02-20] MEDS: DOCUSATE 100 MG CAP PO SCH ×2 (08:34→21:59)
[2019-02-20] MEDS: SODIUM BICARBONATE TAB 650 MG TAB PO SCH (08:34)
[2019-02-20] MEDS: TRIAMCINOLONE 0.1% CREAM 80 GM TUBE TOPICAL SCH ×2 (08:34→21:59)
--- NOTE | 2019-02-20 09:00 | P.PN ---
Subjective Patient is seen in follow-up for acute kidney injury. Renal function is improving - creatinine 2.44 today. Patient is maintained on Lasix drip at 10 mL an hour. He is nonoliguric. Urine output documented as 6.4 L in the last 24 hours. Also being treated for UTI. Urine culture positive for Proteus. Denies chest pain or shortness of breath. Oral intake is good. No vomiting or diarrhea. Vital signs are stable. General: The patient appeared well nourished and normally developed. HEENT: Head exam is unremarkable. Neck is without jugular venous distension. LUNGS: Breath sounds decreased. HEART: Rate and Rhythm are regular. First and second heart sounds normal. No murmurs, rubs or gallops. ABDOMEN: Bowel sounds present. Morbidly obese. EXTREMITITES: 2+ edema. Chronic skin changes noted. Objective - Vital Signs Vital signs: Vital Signs Temp 98.0 F 02/20/19 08:00 Pulse 100 02/20/19 08:00 Resp 10 L 02/20/19 08:00 BP 96/61 02/20/19 08:00 Pulse Ox 94 L 02/20/19 08:00 Intake & Output 02/19/19 02/20/19 02/20/19 18:59 06:59 18:59 Intake Total 3100.667 676 230 Output Total 3727 2750 1150 Balance -833.333 -0228 -920 Weight 271.7 kg Intake: IV 230 90 30 NS 130 90 30 furosemide 100 Intake, IV Titration 290.667 86 200 Amount Cefepime 2 gm In Sodium 100 Chloride 0.9% 100 ml @ 200 mls/hr IVPB Q24H [facility] Rx#:[id number] Furosemide 100 mg In 190.667 86 Sodium Chloride 0.9% 90 ml @ 10 MG/HR 10 mls/hr IV .Q10H [facility] Rx#: [id number] Magnesium Sulfate-D5w Pmx 200 1 gm In Dextrose/Water 1 100ml.bag @ 100 mls/hr IVPB Q1H [facility] Rx#: [id number] Oral 2580 500 Output: Urine 3725 2750 1150 Stool 2 Other: Voiding Method Indwelling Catheter Indwelling Catheter Indwelling Catheter - Labs CBC & Chem 7: 02/20/19 05:29 02/20/19 05:29 Labs: Abnormal Lab Results - Last 24 Hours (Table) 02/19/19 02/19/19 02/19/19 Range/Units 12:13 17:11 17:54 Hgb (13.0-17.5) gm/dL MCHC (31.0-37.0) g/dL RDW (11.5-15.5) % Potassium 3.2 L (3.5-5.1) mmol/L Carbon Dioxide (22-30) mmol/L BUN (9-20) mg/dL Creatinine (0.66-1.25) mg/dL Glucose (74-99) mg/dL POC Glucose (mg/dL) 119 H 102 H (75-99) mg/dL 02/19/19 02/20/19 02/20/19 Range/Units 20:25 05:29 05:29 Hgb 12.2 L (13.0-17.5) gm/dL MCHC 29.4 L (31.0-37.0) g/dL RDW 17.7 H (11.5-15.5) % Potassium 3.1 L (3.5-5.1) mmol/L Carbon Dioxide 32 H (22-30) mmol/L BUN 50 H (9-20) mg/dL Creatinine 2.44 H (0.66-1.25) mg/dL Glucose 109 H (74-99) mg/dL POC Glucose (mg/dL) 159 H (75-99) mg/dL 02/20/19 Range/Units 06:28 Hgb (13.0-17.5) gm/dL MCHC (31.0-37.0) g/dL RDW (11.5-15.5) % Potassium (3.5-5.1) mmol/L Carbon Dioxide (22-30) mmol/L BUN (9-20) mg/dL Creatinine (0.66-1.25) mg/dL Glucose (74-99) mg/dL POC Glucose (mg/dL) 104 H (75-99) mg/dL Assessment and Plan Plan: Assessment: 1. Acute kidney injury. Initially due to hypotension and sepsis. Now there appears to be a component of cardiorenal syndrome. Renal function improving. Creatinine 2.41 today. 2. Chronic kidney disease stage III. Creatinine from November 2018 was near 2. Etiologies nephrosclerosis and component of diabetic kidney disease as he does have proteinuria. 3. Morbid obesity. 4. UTI with urine culture positive for Proteus maintained on antibiotics. 5. Hypokalemia secondary to diuresis. Magnesium normal. 6. Volume overload. 7. Metabolic acidosis secondary to acute kidney injury. Resolved. Plan: Maintain Lasix drip at 10 mL an hour for now. Potassium and magnesium being replaced. Discontinue sodium bicarbonate. Continue to monitor renal function and urine output.
[2019-02-20 11:18] VITALS: BMI 74.8
[2019-02-20 12:17] LABS: Glucose,Whole Blood 115 mg/dL (75-99)
[2019-02-20] MEDS: CEFEPIME 2 GM in SODIUM CHLORIDE 0.9% 100 ML IVPB SCH (16:50)
[2019-02-20 17:01] LABS: Glucose,Whole Blood 110 mg/dL (75-99)
[2019-02-20] MEDS: ACETAMINOPHEN TAB 325 MG TAB PO PRN (21:54)
[2019-02-20 22:03] LABS: Glucose,Whole Blood 123 mg/dL (75-99)
--- NOTE | 2019-02-20 23:02 | PN ---
PROGRESS NOTE DATE OF SERVICE: 02/20/2019 PRESENTING COMPLAINT: Fever, chills, cellulitis. INTERVAL HISTORY: This morbidly obese gentleman with bilateral lower extremity lymphedema with secondary cellulitis, including that of the scrotum, presented with a septic picture, status post Levophed. He has a Mcknight catheter. Also being treated for a UTI. Today he is sitting up. Did tolerate a diet. The patient remains on Lasix drip. He is Selective overflow in the ICU. Scrotal swelling has gone down. Local wound care is being continued by Dr. Elias. REVIEW OF SYSTEMS: Done for constitutional, cardiovascular, GI, pulmonary; relevant findings as above. CURRENT MEDICATIONS: Reviewed. They include IV cefepime and Lasix drip. PHYSICAL EXAMINATION: Temperature 98.2, pulse 70, respiration 12, blood pressure 120/98, pulse ox 92% on room air. GENERAL APPEARANCE: Sitting on bed, awake. EYES: Pupils equal. Conjunctivae normal. NECK: JVD unable to assess. Mass not palpable. RESPIRATORY: Effort increased. LUNGS: Distant breath sounds. CARDIOVASCULAR: Heart sounds muffled. Edema present. ABDOMEN: Distended, soft. Liver and spleen not palpable. PSYCHIATRY: Alert and oriented x3. Mood and affect normal. LYMPHATICS: Bilateral lower extremity lymphedema. DERMATOLOGICAL: Evidence of cellulitis both in the groin and scrotal area and skin changes. INVESTIGATIONS: White count 4.2, hemoglobin 12.2, potassium 3.1, BUN 50, creatinine 2.44, bicarb 32. ASSESSMENT: 1. Acute severe cellulitis with multiple organisms involving both the thighs, groins, lower abdomen. 2. Acute scrotal cellulitis. 3. Septic shock on presentation, status post IV fluids and Levophed drip. 4. Acute urinary tract infection with proteus secondary to cystitis. 5. Morbid obesity; body mass index more than 35. 6. Chronic medical debility because of morbid obesity. 7. Diabetes mellitus, type 2, on oral hypoglycemic. 8. Gastroesophageal reflux disease. 9. Essential hypertension. 10.Chronic kidney disease, stage IV, probably from nephrosclerosis and diabetic nephropathy. 11.Chronic bilateral lower extremity wounds. 12.Hypothyroidism. 13.Persistent atrial fibrillation, rate controlled. PLAN: Continue current medication and treatment plan. Patient is not keen to go to rehab; wants to go home. Patient remains on IV Lasix drip being coordinated by Nephrology. Antibiotics will be decided per Dr. Elias. Care was discussed with the patient. MMODL / IJN: [id number] /
[2019-02-21] MEDS: HYDROcodone/APAP 10-325MG 1 EACH TAB PO PRN ×4 (00:29→23:31)
[2019-02-21 05:36] LABS: Anisocytosis Slight; Basophils % (A) 1 %; Eosinophils # (A) 0.4 k/uL (0-0.7); Eosinophils % (A) 9 %; HGB 12.2 gm/dL (13.0-17.5); Hypochromasia Marked; Lymphocytes # (A) 0.8 k/uL (1.0-4.8); Lymphocytes % (A) 17 %; MCH 27.7 pg (25.0-35.0); MCV 95.5 fL (80.0-100.0); Macrocytosis Slight; Mean Platelet Volume 8.5; Monocytes # (A) 0.3 k/uL (0-1.0); Monocytes % (A) 5 %; Neutrophils # (A) 3.3 k/uL (1.3-7.7); Neutrophils % (A) 67 %; Platelet Count 242 k/uL (150-450); WBC 4.9 k/uL (3.8-10.6)
[2019-02-21 05:39] LABS: Calcium 8.5 mg/dL (8.4-10.2); Magnesium 1.9 mg/dL (1.6-2.3); Potassium 3.4 mmol/L (3.5-5.1)
[2019-02-21] MEDS ORDERED: MAGNESIUM SULFATE-D5W PMX 1 GM in DEXTROSE/WATER 1 100ML.BAG IVPB ONE (06:07)
[2019-02-21] MEDS: LEVOTHYROXINE 75 MCG TAB PO SCH (06:35)
[2019-02-21] MEDS: POTASSIUM CHLORIDE ER 20 MEQ TAB.ER PO SCH ×6 (06:35→17:40)
[2019-02-21] MEDS: FUROSEMIDE 100 MG in SODIUM CHLORIDE 0.9% 90 ML IV SCH ×2 (06:56→16:41)
[2019-02-21 06:59] LABS: Glucose,Whole Blood 117 mg/dL (75-99)
[2019-02-21] MEDS: INSULIN ASPART (NovoLOG) 100 UNIT/ML VIAL SQ SCH ×4 (07:03→20:33)
--- NOTE | 2019-02-21 08:05 | P.PN ---
Subjective Patient is seen in follow-up for acute kidney injury. Renal function is improving - creatinine 2.15 today. Patient is maintained on Lasix drip at 10 mL an hour. He is nonoliguric. Urine output documented as 7.9 L in the last 24 hours. Also being treated for UTI. Urine culture positive for Proteus. Denies chest pain or shortness of breath. Oral intake is good. No vomiting or diarrhea. Vital signs are stable. General: The patient appeared well nourished and normally developed. HEENT: Head exam is unremarkable. Neck is without jugular venous distension. LUNGS: Breath sounds decreased. HEART: Rate and Rhythm are regular. First and second heart sounds normal. No murmurs, rubs or gallops. ABDOMEN: Bowel sounds present. Morbidly obese. EXTREMITITES: 2+ edema. Chronic skin changes noted. Objective - Vital Signs Vital signs: Vital Signs Temp 98.0 F 02/21/19 04:00 Pulse 85 02/21/19 04:00 Resp 13 02/21/19 04:00 BP 99/59 02/21/19 04:00 Pulse Ox 94 L 02/21/19 04:00 Intake & Output 02/20/19 02/21/19 02/21/19 18:59 06:59 18:59 Intake Total 2019 1509.333 Output Total 3950 3950 Balance -1930 -2440.667 Weight 271.7 kg 268.7 kg Intake: IV 120 120 NS 120 120 Intake, IV Titration 400 189.333 Amount Cefepime 2 gm In Sodium 100 Chloride 0.9% 100 ml @ 200 mls/hr IVPB Q24H [facility] Rx#:[id number] Furosemide 100 mg In 100 189.333 Sodium Chloride 0.9% 90 ml @ 10 MG/HR 10 mls/hr IV .Q10H [facility] Rx#: [id number] Magnesium Sulfate-D5w Pmx 200 1 gm In Dextrose/Water 1 100ml.bag @ 100 mls/hr IVPB Q1H [facility] Rx#: [id number] Oral 1500 1200 Output: Urine 3950 3950 Other: Voiding Method Indwelling Catheter Indwelling Catheter # Voids 0 # Bowel Movements 1 - Labs CBC & Chem 7: 02/21/19 05:00 02/21/19 05:00 Labs: Abnormal Lab Results - Last 24 Hours (Table) 02/20/19 02/20/1902/20/19 Range/Units 12:15 14:52 17:00 Hgb (13.0-17.5) gm/dL MCHC (31.0-37.0) g/dL RDW (11.5-15.5) % Lymphocytes # (1.0-4.8) k/uL Potassium 3.2 L (3.5-5.1) mmol/L Carbon Dioxide (22-30) mmol/L BUN (9-20) mg/dL Creatinine (0.66-1.25) mg/dL Glucose (74-99) mg/dL POC Glucose (mg/dL) 115 H 110 H (75-99) mg/dL 02/20/19 02/21/19 02/21/19 Range/Units 22:02 05:00 05:00 Hgb 12.2 L (13.0-17.5) gm/dL MCHC 29.0 L (31.0-37.0) g/dL RDW 18.0 H (11.5-15.5) % Lymphocytes # 0.8 L (1.0-4.8) k/uL Potassium 3.4 L (3.5-5.1) mmol/L Carbon Dioxide 35 H (22-30) mmol/L BUN 51 H (9-20) mg/dL Creatinine 2.15 H (0.66-1.25) mg/dL Glucose 126 H (74-99) mg/dL POC Glucose (mg/dL) 123 H (75-99) mg/dL 02/21/19 Range/Units 06:58 Hgb (13.0-17.5) gm/dL MCHC (31.0-37.0) g/dL RDW (11.5-15.5) % Lymphocytes # (1.0-4.8) k/uL Potassium (3.5-5.1) mmol/L Carbon Dioxide (22-30) mmol/L BUN (9-20) mg/dL Creatinine (0.66-1.25) mg/dL Glucose (74-99) mg/dL POC Glucose (mg/dL) 117 H (75-99) mg/dL Assessment and Plan Plan: Assessment: 1. Acute kidney injury. Initially due to hypotension and sepsis. Now there appears to be a component of cardiorenal syndrome. Renal function improving. Creatinine 2.15 today. 2. Chronic kidney disease stage III. Creatinine from November 2018 was near 2. Etiologies nephrosclerosis and component of diabetic kidney disease as he does have proteinuria. 3. Morbid obesity. 4. UTI with urine culture positive for Proteus maintained on antibiotics. 5. Hypokalemia secondary to diuresis. Magnesium normal. 6. Volume overload. 7. Metabolic acidosis secondary to acute kidney injury. Resolved. Plan: Maintain Lasix drip at 10 mL an hour for now. Potassium and magnesium being replaced. Discontinued sodium bicarbonate. Continue to monitor renal function and urine output.
[2019-02-21] MEDS: PANTOPRAZOLE 40 MG TABLET PO SCH (08:54)
[2019-02-21] MEDS: ALLOPURINOL 300 MG TAB PO SCH (08:54)
[2019-02-21] MEDS: METOPROLOL TARTRATE 25 MG TAB PO SCH ×2 (08:54→20:36)
[2019-02-21] MEDS: FERROUS SULFATE 325 MG TAB PO SCH ×2 (08:54→20:36)
[2019-02-21] MEDS: DOCUSATE 100 MG CAP PO SCH ×3 (08:54→20:33)
[2019-02-21] MEDS: HEPARIN SODIUM,PORCINE 5,000 UNIT/ML 1 ML VIAL SQ SCH ×3 (08:54→23:32)
[2019-02-21] MEDS: TRIAMCINOLONE 0.1% CREAM 80 GM TUBE TOPICAL SCH ×2 (08:55→20:39)
[2019-02-21 11:57] LABS: Glucose,Whole Blood 123 mg/dL (75-99)
[2019-02-21] MEDS: ACETAMINOPHEN TAB 325 MG TAB PO PRN ×2 (12:21→20:36)
[2019-02-21] MEDS: CEFEPIME 2 GM in SODIUM CHLORIDE 0.9% 100 ML IVPB SCH (16:07)
[2019-02-21 17:23] LABS: Glucose,Whole Blood 111 mg/dL (75-99)
[2019-02-21 20:33] LABS: Glucose,Whole Blood 143 mg/dL (75-99)
--- NOTE | 2019-02-21 21:54 | PN ---
PROGRESS NOTE DATE OF SERVICE: 02/21/2019 PRESENTING COMPLAINT: Cellulitis. INTERVAL HISTORY: This morbidly obese gentleman with bilateral lower extremity lymphedema with secondary severe cellulitis, including that of the scrotum, presented with a septic picture, status post Levophed. Has a Mcknight catheter. Also being treated for UTI. Today patient is sitting up in bed. Did tolerate diet. Did have a bowel movement yesterday. Remains on Lasix drip with good urine output. Local wound care to continue. REVIEW OF SYSTEMS: Done for constitutional, cardiovascular, GI, pulmonary, dermatological; relevant findings as above. CURRENT MEDICATIONS: Reviewed. PHYSICAL EXAMINATION: VITAL SIGNS: Temperature 98.1, pulse 80, respiration 16, blood pressure 119/102, pulse ox 91%. GENERAL APPEARANCE: Sitting up, awake. EYES: Pupils equal. Conjunctivae normal. NECK: JVD unable to assess. Mass not palpable. RESPIRATORY: Effort increased. LUNGS: Distant breath sounds. CARDIOVASCULAR: Heart sounds muffled. Edema present. ABDOMEN: Distended, soft. Liver and spleen not palpable. PSYCHIATRY: Alert and oriented x3. Mood and affect normal. LYMPHATICS: Bilateral lower extremity lymphedema. DERMATOLOGICAL: Cellulitis of both lower extremities, groin, scrotal area. INVESTIGATIONS: White count 4.9, hemoglobin 12.2, platelets 242, potassium 3.4, bicarb 35, BUN 51, creatinine 2.15. ASSESSMENT: 1. Acute severe cellulitis with multiple organisms involving both lower extremities, groin, lower abdomen. 2. Acute scrotal cellulitis. 3. Septic shock on presentation, status post IV fluids and Levophed drip. 4. Acute urinary tract infection with Proteus secondary to cystitis. 5. Morbid obesity; body mass index more than 35. 6. Chronic medical debility because of morbid obesity. 7. Diabetes mellitus, type 2, on oral hypoglycemic. 8. Gastroesophageal reflux disease. 9. Essential hypertension. 10.Chronic kidney disease, stage IV, probably from nephrosclerosis and diabetic nephropathy. 11.Chronic bilateral lower extremity wounds. 12.Hypothyroidism. 13.Persistent atrial fibrillation, rate controlled. PLAN: Continue current medication and treatment plan. The patient has declined going to rehab. Antibiotics are being coordinated by Dr. Elias. Patient remains on Lasix drip. Because of alkalosis, I will add Diamox. MMODL / IJN: [id number] /
[2019-02-21] MEDS: acetaZOLAMIDE 250 MG TAB PO SCH (23:32)
--- NOTE | 2019-02-22 00:23 | P.PN ---
Subjective Progress Note Date: 02/21/19 53-year-old male who has morbid superobesity is brought to Hospital by EMS with a several-day history of worsening symptoms. The patient relates he was having increasing weakness, increasing swelling to his scrotum became much more painful. He also is having increasing pain to his right lower extremity. This is of great interest because the family members are able to a couple times a day get him to stand although briefly so that he can toilet. The right leg became so painful that he was having a hard time standing at all. With these increasing symptoms he agreed to be brought to hospital. He relates he has started to feel slightly better. The scrotum is still painful but less swollen. The right leg is painful but less so. He is not having fevers or chills but often does not. The patient has had full resuscitation with greater then 5 L of normal saline, and has also required epinephrine therapy that is on hold at this time. 02/18/2019 patient remains in intensive care unit, intermittently on vasopressor therapy. Urine output finally his exceeded fluid intake with a negative fluid balance today. His extensive edema destined to be slightly improved. Patient complains of severe pain to his scrotum into his lower extremities. 02/21/2019 patient remains on Lasix drip edema improving some negative balance of fluid is occurring Objective - Vital Signs Vital signs: Vital Signs Temp 98.0 F 02/21/19 22:00 Pulse 88 02/21/19 22:00 Resp 17 02/21/19 22:00 BP 107/77 02/21/19 22:00 Pulse Ox 95 02/21/19 22:00 Intake & Output 02/21/19 02/21/19 02/22/19 06:59 18:59 06:59 Intake Total 1509.333 787.5 580 Output Total 3950 4300 2350 Balance -2440.667 -3512.5 -1770 Weight 268.7 kg Intake: IV 120 340 80 Cefepime 2 gm In Sodium 100 Chloride 0.9% 100 ml @ 200 mls/hr IVPB Q24H [facility] Rx#:[id number] Furosemide 100 mg In 120 Sodium Chloride 0.9% 90 ml @ 10 MG/HR 10 mls/hr IV .Q10H [facility] Rx#: [id number] NS 120 120 80 Intake, IV Titration 189.333 97.5 Amount Furosemide 100 mg In 189.333 97.5 Sodium Chloride 0.9% 90 ml @ 10 MG/HR 10 mls/hr IV .Q10H [facility] Rx#: [id number] Oral 1200 350 500 Output: Urine 3950 4300 2350 Other: Voiding Method Indwelling Catheter Indwelling Catheter Indwelling Catheter # Bowel Movements 1 - Exam 53-year-old male with superobesity relates it is more comfortable HEENT: Anicteric conjunctiva are pink and moist nasal mucosa grossly intact with out significant lesions, there is no thrush. Poor dentition Neck: The neck is supple without significant lymphadenopathy or thyromegaly. Lungs: Good bilateral air entry without significant crackles or wheezing. There is no significant bronchial sounds. There is no egophony or dullness. Heart: Regular rate and rhythm with an audible S1-S2, no S3 no S4. There is no significant murmur click or rub, PMI was nondisplaced. Abdomen: Obese Positive bowel sounds soft and nontender without palpable masses or organomegaly. There was no guarding or rebound. Extremities: The upper extremities do not have any lesions in the IV site left arm is about troubles. The right lower extremity shows evidence of the chronic lymphedema. He has small areas that we put on the thigh and a blue pad is in place to catch the drainage. The right calf and the lateral surfaces of his the 2 ulcerations and please see the nursing documentation regarding his 2 ulcers. Left leg has evidence of lymphedema with some drainage on the thigh. Lymphedema drainage is not unusual for him. The scrotum is very swollen and remains tender. Upon evaluation there were no open ulcerations just some moisture from oozing of the scrotal tissue. Has moisture in the fold under the large abdominal pannus. Neuro: Awake alert oriented to person place and time. There are no acute new gross focal sensory motor deficits. - Labs CBC & Chem 7: 02/21/19 05:00 02/21/19 12:10 Labs: Abnormal Lab Results - Last 24 Hours (Table) 02/21/19 02/21/19 02/21/19 Range/Units 05:00 05:00 06:58 Hgb 12.2 L (13.0-17.5) gm/dL MCHC 29.0 L (31.0-37.0) g/dL RDW 18.0 H (11.5-15.5) % Lymphocytes # 0.8 L (1.0-4.8) k/uL Potassium 3.4 L (3.5-5.1) mmol/L Carbon Dioxide 35 H (22-30) mmol/L BUN 51 H (9-20) mg/dL Creatinine 2.15 H (0.66-1.25) mg/dL Glucose 126 H (74-99) mg/dL POC Glucose (mg/dL) 117 H (75-99) mg/dL 02/21/19 02/21/19 02/21/19 Range/Units 11:55 17:21 20:32 Hgb (13.0-17.5) gm/dL MCHC (31.0-37.0) g/dL RDW (11.5-15.5) % Lymphocytes # (1.0-4.8) k/uL Potassium (3.5-5.1) mmol/L Carbon Dioxide (22-30) mmol/L BUN (9-20) mg/dL Creatinine (0.66-1.25) mg/dL Glucose (74-99) mg/dL POC Glucose (mg/dL) 123 H 111 H 143 H (75-99) mg/dL Laboratory Results WBC 4.9 k/uL (3.8-10.6) 02/21/19 05:00 RBC 4.40 m/uL (4.30-5.90) 02/21/19 05:00 Hgb 12.2 gm/dL (13.0-17.5) L 02/21/19 05:00 Hct 42.0 % (39.0-53.0) 02/21/19 05:00 MCV 95.5 fL (80.0-100.0) 02/21/19 05:00 MCH 27.7 pg (25.0-35.0) 02/21/19 05:00 MCHC 29.0 g/dL (31.0-37.0) L 02/21/19 05:00 RDW 18.0 % (11.5-15.5) H 02/21/19 05:00 Plt Count 242 k/uL (150-450) 02/21/19 05:00 Neutrophils % 67 % 02/21/19 05:00 Lymphocytes % 17 % 02/21/19 05:00 Monocytes % 5 % 02/21/19 05:00 Eosinophils % 9 % 02/21/19 05:00 Basophils % 1 % 02/21/19 05:00 Neutrophils # 3.3 k/uL (1.3-7.7) 02/21/19 05:00 Lymphocytes # 0.8 k/uL (1.0-4.8) L 02/21/19 05:00 Monocytes # 0.3 k/uL (0-1.0) 02/21/19 05:00 Eosinophils # 0.4 k/uL (0-0.7) 02/21/19 05:00 Basophils # 0.0 k/uL (0-0.2) 02/21/19 05:00 Hypochromasia Marked 02/21/19 05:00 Poikilocytosis Slight 02/17/19 06:43 Anisocytosis Slight 02/21/19 05:00 Macrocytosis Slight 02/21/19 05:00 PT 14.8 sec (9.0-12.0) H 02/12/19 21:55 INR 1.5 (<1.2) H 02/12/19 21:55 APTT 26.4 sec (22.0-30.0) 02/12/19 21:55 Sodium 138 mmol/L (137-145) 02/21/19 05:00 Potassium 3.6 mmol/L (3.5-5.1) 02/21/19 12:10 Chloride 98 mmol/L (98-107) 02/21/19 05:00 Carbon Dioxide 35 mmol/L (22-30) H 02/21/19 05:00 Anion Gap 5 mmol/L 02/21/19 05:00 BUN 51 mg/dL (9-20) H 02/21/19 05:00 Creatinine 2.15 mg/dL (0.66-1.25) H 02/21/19 05:00 Est GFR (CKD-EPI)AfAm 39 (>60 ml/min/1.73 sqM) 02/21/19 05:00 Est GFR (CKD-EPI)NonAf 34 (>60 ml/min/1.73 sqM) 02/21/19 05:00 Glucose 126 mg/dL (74-99) H 02/21/19 05:00 POC Glucose (mg/dL) 143 mg/dL (75-99) H 02/21/19 20:32 POC Glu [employer] Assembler ID Beatrice Pastrana 02/21/19 20:32 Plasma Lactic Acid [place] 1.7 mmol/L (0.7-2.0) 02/12/19 21:55 Calcium 8.5 mg/dL (8.4-10.2) 02/21/19 05:00 Phosphorus 5.5 mg/dL (2.5-4.5) H 02/14/19 04:55 Magnesium 1.9 mg/dL (1.6-2.3) 02/21/19 05:00 Total Bilirubin 2.5 mg/dL (0.2-1.3) H 02/14/19 04:55 AST 19 U/L (17-59) 02/14/19 04:55 ALT 12 U/L (21-72) L 02/14/19 04:55 Alkaline Phosphatase 170 U/L (38-126) H 02/14/19 04:55 Troponin I 0.014 ng/mL (0.000-0.034) 02/13/19 02:30 Total Protein 6.6 g/dL (6.3-8.2) 02/14/19 04:55 Albumin 2.9 g/dL (3.5-5.0) L 02/14/19 04:55 Urine Color [place] 02/13/19 08:13 Urine Appearance Cloudy (Clear) 02/13/19 08:13 Urine pH 5.5 (5.0-8.0) 02/13/19 08:13 Ur Specific [place] 1.020 (1.001-1.035) 02/13/19 08:13 Urine Protein 1+ (Negative) H 02/13/19 08:13 Urine Glucose (UA) Negative (Negative) 02/13/19 08:13 Urine Ketones Negative (Negative) 02/13/19 08:13 Urine Blood Moderate (Negative) H 02/13/19 08:13 Urine Nitrite Negative (Negative) 02/13/19 08:13 Urine Bilirubin 1+ (Negative) H 02/13/19 08:13 Urine Urobilinogen 3.0 mg/dL (<2.0) 02/13/19 08:13 Ur Leukocyte Esterase Large (Negative) H 02/13/19 08:13 Urine RBC 12 /hpf (0-5) H 02/13/19 08:13 Urine WBC 68 /hpf (0-5) H 02/13/19 08:13 Urine WBC Clumps Few /hpf (None) H 02/13/19 08:13 Ur Squamous Epith Cells 1 /hpf (0-4) 02/13/19 08:13 Amorphous Sediment Rare /hpf (None) H 02/13/19 08:13 Urine Bacteria Rare /hpf (None) H 02/13/19 08:13 Hyaline Casts 3 /lpf (0-2) H 02/13/19 08:13 Urine Mucus Rare /hpf (None) H 02/13/19 08:13 Ur Random Creatinine 55.8 mg/dL 02/15/19 18:25 U Random Total Protein 27 mg/dL (<12) H 02/15/19 18:25 Microbiology 02/12/19 23:05 Blood Blood Culture - Final No Growth after 144 hours 02/13/19 10:35 Leg - Right Gram Stain - Final 02/13/19 10:35 Leg - Right Wound Culture - Final Beta Hemolytic Strep Group G Acinetobacter teddy/haemol 02/14/19 20:05 Urine,Catheterized Urine Culture - Final 02/13/19 00:10 Urine,Voided Urine Culture - Final Proteus Species Assessment and Plan (1) Scrotal edema Current Visit: Yes Status: Acute Code(s): N50.89 - OTHER SPECIFIED DISORDERS OF THE MALE GENITAL ORGANS SNOMED Code(s): 93540279 (2) Urinary tract infection Current Visit: Yes Status: Acute Code(s): N39.0 - URINARY TRACT INFECTION, SITE NOT SPECIFIED SNOMED Code(s): 25748505 (3) Acute on chronic renal failure Current Visit: Yes Status: Acute Code(s): N17.9 - ACUTE KIDNEY FAILURE, UNSPECIFIED; N18.9 - CHRONIC KIDNEY DISEASE, UNSPECIFIED SNOMED Code(s): 160523438 (4) Lymphedema of both lower extremities Narrative/Plan: 53-year-old male with superobesity who is generally homebound and is only able to get out of the house with his extrawide wheelchair in the family van. It however is an endeavor for the family to accomplish this. The patient cannot go to any primary care physician offices and that they do not have equipment to accommodate him. He was seen for several visits the wound healing Center but it was in extreme difficulty with transportation via EMS and constantly is cared for by the visiting physician on a quarterly basis. He does have a home nurse who does help with wound care. The patient does have some ulcerations in the right lateral leg and Aquacel silver is being utilized seems to be helpful. We'll ask for Covan so that the lymphedema wraps can be kept in place this works much better for him than Artur wraps. Intra-dry for the folds to try to help treat them dry For pneumonic therapy based on his recent cultures also will be an adequate choice with greatest concern to be a urinary tract infection. Pseudomonas was most recent pathogen. Given his acute on chronic renal failure would avoid further doses of vancomycin at this time. If there is any further concern about MRSA or other resistant gram-positive organisms daptomycin will be considered. The patient is on the appropriate bariatric air bed Dietary consult is in process The patient has had evidence of sepsis with relative hypotension and has been on vasopressor therapy which is now on hold. Hopefully with the current resuscitation efforts he will not require further vasopressor therapy. The source of sepsis is still most likely the urinary system at this time based upon current findings. Of concern is the patient's difficulty with trying to stand because some pain to his right leg. Given his level of discomfort would like to evaluate for thrombus although would not be possible. 02/18/2019 over the weekend the patient's cultures did finalize, Acinetobacter baumannii was isolated. Unasyn is not available, and on-call applied cefepime. Proteus was lasted from the urine as the most likely source of his sepsis for which the cefepime would be also effective. Discharge plan is in process and remains unclear at this time. Ability to perform home intravenous antibiotict herapy will need to be investigated. Local wound care continues. Patient has been seen by urology and a Mcknight catheter was able to be applied although very difficult in nature. Proteus isolated from the urine and as noted likely pathogen of current sepsis. 02/21/2019 patient doing relatively well with current antibiotic therapy with cefepime, this will continue and likely will be utilized in the home at discharge. Remains on Lasix drip at this time. Current Visit: Yes Status: Acute Code(s): I89.0 - LYMPHEDEMA, NOT ELSEWHERE CLASSIFIED SNOMED Code(s): 64002758453749009 (5) Venous stasis ulcer of right lower leg with edema of right lower leg Current Visit: Yes Status: Acute Code(s): I83.019 - VARICOSE VEINS OF RIGHT LOWER EXTREMITY W ULCER OF UNSP SITE; I83.891 - VARICOSE VEINS OF R LOW EXTREM WITH OTHER COMPLICATIONS; L97.919 - NON-PRS CHRONIC ULC UNSP PRT OF R LOW LEG W UNSP SEVERITY; R60.9 - EDEMA, UNSPECIFIED SNOMED Code(s): 95464116742952655
[2019-02-22] MEDS: FUROSEMIDE 100 MG in SODIUM CHLORIDE 0.9% 90 ML IV SCH ×2 (04:25→13:35)
[2019-02-22 05:46] LABS: Anisocytosis Slight; Basophils % (A) 0 %; Eosinophils # (A) 0.5 k/uL (0-0.7); Eosinophils % (A) 10 %; HCT 41.7 % (39.0-53.0); HGB 12.3 gm/dL (13.0-17.5); Hypochromasia Marked; Lymphocytes # (A) 0.7 k/uL (1.0-4.8); Lymphocytes % (A) 15 %; MCH 28.6 pg (25.0-35.0); MCHC 29.4 g/dL (31.0-37.0); Macrocytosis Slight; Mean Platelet Volume 8.1; Monocytes # (A) 0.3 k/uL (0-1.0); Monocytes % (A) 6 %; Neutrophils # (A) 3.2 k/uL (1.3-7.7); Neutrophils % (A) 67 %; Platelet Count 222 k/uL (150-450); RDW 18.1 % (11.5-15.5); WBC 4.7 k/uL (3.8-10.6)
[2019-02-22 06:24] LABS: Calcium 8.7 mg/dL (8.4-10.2); Magnesium 1.8 mg/dL (1.6-2.3); Potassium 3.5 mmol/L (3.5-5.1)
[2019-02-22] MEDS: LEVOTHYROXINE 75 MCG TAB PO SCH (07:02)
[2019-02-22] MEDS: HYDROcodone/APAP 10-325MG 1 EACH TAB PO PRN ×2 (07:04→20:31)
[2019-02-22 07:05] LABS: Glucose,Whole Blood 136 mg/dL (75-99)
[2019-02-22] MEDS: INSULIN ASPART (NovoLOG) 100 UNIT/ML VIAL SQ SCH ×4 (07:05→20:39)
[2019-02-22] MEDS: DOCUSATE 100 MG CAP PO SCH ×2 (09:13→20:34)
[2019-02-22] MEDS: METOPROLOL TARTRATE 25 MG TAB PO SCH ×2 (09:13→20:31)
[2019-02-22] MEDS: PANTOPRAZOLE 40 MG TABLET PO SCH (09:13)
[2019-02-22] MEDS: HEPARIN SODIUM,PORCINE 5,000 UNIT/ML 1 ML VIAL SQ SCH ×3 (09:13→23:09)
[2019-02-22] MEDS: FERROUS SULFATE 325 MG TAB PO SCH ×2 (09:14→20:32)
[2019-02-22] MEDS: acetaZOLAMIDE 250 MG TAB PO SCH ×2 (09:14→20:30)
[2019-02-22] MEDS: ACETAMINOPHEN TAB 325 MG TAB PO PRN ×2 (09:25→23:09)
[2019-02-22] MEDS: ALLOPURINOL 300 MG TAB PO SCH (09:25)
[2019-02-22] MEDS: POTASSIUM CHLORIDE ER 20 MEQ TAB.ER PO SCH ×2 (11:42→13:37)
[2019-02-22] MEDS: TRIAMCINOLONE 0.1% CREAM 80 GM TUBE TOPICAL SCH ×2 (11:43→20:35)
[2019-02-22 12:13] LABS: Glucose,Whole Blood 139 mg/dL (75-99)
[2019-02-22] MEDS: MAGNESIUM SULFATE-D5W PMX 1 GM in DEXTROSE/WATER 1 100ML.BAG IVPB SCH ×2 (12:14→13:33)
[2019-02-22] MEDS ORDERED: POTASSIUM CHLORIDE 20 MEQ in WATER FOR INJECTION 1 100ML.BAG IVPB ONE ×2 (15:00→20:12)
[2019-02-22] MEDS: CEFEPIME 2 GM in SODIUM CHLORIDE 0.9% 100 ML IVPB SCH (15:09)
--- NOTE | 2019-02-22 15:13 | PN ---
PROGRESS NOTE Patient is seen for followup for severe volume overload and acute kidney injury. Renal function has improved slightly and creatinine is staying stable at about 2.1 mg/dL. Currently, patient is maintained on Lasix drip at 10 mg an hour. He has had good urine output. The patient states overall he is feeling better. He is also maintained on Diamox. On examination, blood pressure this morning was 122/87, heart rate 87 per minute. Patient is afebrile. Examination of the heart S1, S2. Examination of the lungs, bilateral breath sounds are heard. Abdomen is soft, morbidly obese. Examination of lower extremities shows severe chronic skin changes with severe chronic edema bilaterally. B[employer]OD B[employer] BUSINESS MANAGER exam shows patient is able to move all 4 extremities. LAB: Show sodium 139, potassium 3.5, CO2 is 36, BUN 46, serum creatinine 2.16, hemoglobin 12.3 g/dL. ASSESSMENT: 1. Acute kidney injury secondary to hypotension and sepsis, currently stable. Creatinine is stable, staying at about 2.1 mg/dL. The patient is severely volume overloaded. He is maintained on Lasix drip, which he seems to be tolerating. 2. Chronic kidney disease stage 3 secondary to nephrosclerosis versus diabetic kidney disease. 3. Severe volume overload. Maintained on Lasix drip which we can continue. 4. Hypokalemia secondary to diuresis. We will replace. 5. Metabolic acidosis secondary to renal failure, status post sodium bicarb. Now the patient has evidence of mild metabolic alkalosis, which may also be secondary to recent diuresis. He is maintained on Diamox. PLAN: Continue with the Lasix drip, replace potassium and magnesium. Repeat labs in a.m. MMODL / IJN: [id number] /
[2019-02-22 16:50] LABS: Glucose,Whole Blood 123 mg/dL (75-99)
[2019-02-22 20:39] LABS: Glucose,Whole Blood 136 mg/dL (75-99)
--- NOTE | 2019-02-22 22:55 | PN ---
PROGRESS NOTE DATE OF SERVICE: February 22, 2019. PRESENTING COMPLAINT: Cellulitis. INTERVAL HISTORY: This morbidly obese gentleman with bilateral lower extremity lymphedema with secondary severe cellulitis including that of the scrotum, presented with septic picture, status post Levophed. Has a Mcknight catheter. Also being treated for UTI. The patient continues to sit up on the bed, tolerating his diet, had a bowel movement. Remains on Lasix drip. No other new issues. REVIEW OF SYSTEMS: Done for constitutional, cardiovascular, GI, pulmonary, dermatologic relevant findings as above. CURRENT MEDICATIONS: Reviewed that include IV cefepime, Lasix drip. PHYSICAL EXAMINATION: VITAL SIGNS: Temperature 97.9, pulse 97, respiration 23, blood pressure 120/73, pulse ox 95% on nasal cannula. GENERAL APPEARANCE: Sitting up awake. EYES: Pupils equal. Conjunctivae normal. NECK: JVD unable to assess. Mass not palpable. RESPIRATORY: Effort increased. LUNGS: Distant breath sounds. CARDIOVASCULAR: Heart sounds muffled. Edema present. ABDOMEN: Distended, soft. Liver and spleen not palpable. PSYCHIATRY: Alert and oriented x3. Mood and affect normal. LYMPHATICS: Bilateral lower extremity lymphedema. DERMATOLOGICAL: Cellulitis of both lower extremities, groin, scrotal area. INVESTIGATIONS: White count 4.7, hemoglobin 12.3, potassium 3.5, BUN 46, creatinine 2.16. Accu-Cheks are noted. ASSESSMENT: 1. Acute severe cellulitis with multiple organisms involving both lower extremities, groin, scrotal area. 2. Acute scrotal cellulitis. 3. Septic shock on presentation status post IV fluids and Levophed drip. 4. Acute urinary tract infection with Proteus secondary to cystitis. 5. Morbid obesity BMI more than 35. 6. Chronic medical debility because of morbid obesity. 7. Diabetes mellitus type 2 on oral hypoglycemic. 8. Gastroesophageal reflux disease. 9. Essential hypertension. 10.Chronic kidney disease stage 4 probably from nephrosclerosis and diabetic nephropathy. 11.Chronic bilateral lower extremity wounds. 12.Hypothyroidism. 13.Persistent atrial fibrillation rate controlled. 14.Metabolic alkalosis from diuresis. PLAN: Continue current medication and treatment plan. Remains on antibiotics and Lasix drip. MMODL / IJN: [id number] /
[2019-02-23] MEDS: FUROSEMIDE 100 MG in SODIUM CHLORIDE 0.9% 90 ML IV SCH ×3 (01:36→23:12)
[2019-02-23] MEDS: HYDROcodone/APAP 10-325MG 1 EACH TAB PO PRN ×4 (04:52→23:42)
[2019-02-23 06:26] LABS: Anisocytosis Slight; Basophils % (A) 1 %; Eosinophils # (A) 0.4 k/uL (0-0.7); Eosinophils % (A) 7 %; HGB 12.4 gm/dL (13.0-17.5); Hypochromasia Marked; Lymphocytes % (A) 18 %; MCH 28.3 pg (25.0-35.0); MCHC 28.8 g/dL (31.0-37.0); MCV 98.2 fL (80.0-100.0); Macrocytosis Slight; Mean Platelet Volume 8.1; Monocytes # (A) 0.3 k/uL (0-1.0); Monocytes % (A) 6 %; Neutrophils # (A) 3.7 k/uL (1.3-7.7); Neutrophils % (A) 66 %; Platelet Count 220 k/uL (150-450); RBC 4.38 m/uL (4.30-5.90); RDW 18.4 % (11.5-15.5); WBC 5.6 k/uL (3.8-10.6)
[2019-02-23] MEDS: LEVOTHYROXINE 75 MCG TAB PO SCH (06:37)
[2019-02-23 06:42] LABS: Calcium 8.6 mg/dL (8.4-10.2); Potassium 3.5 mmol/L (3.5-5.1)
[2019-02-23] MEDS: INSULIN ASPART (NovoLOG) 100 UNIT/ML VIAL SQ SCH ×4 (08:01→21:37)
[2019-02-23] MEDS: acetaZOLAMIDE 250 MG TAB PO SCH ×2 (08:14→20:42)
[2019-02-23] MEDS: PANTOPRAZOLE 40 MG TABLET PO SCH (08:14)
[2019-02-23] MEDS: METOPROLOL TARTRATE 25 MG TAB PO SCH ×2 (08:14→20:43)
[2019-02-23] MEDS: HEPARIN SODIUM,PORCINE 5,000 UNIT/ML 1 ML VIAL SQ SCH ×3 (08:14→23:07)
[2019-02-23] MEDS: ACETAMINOPHEN TAB 325 MG TAB PO PRN (08:14)
[2019-02-23] MEDS: FERROUS SULFATE 325 MG TAB PO SCH ×2 (08:15→20:43)
[2019-02-23] MEDS: DOCUSATE 100 MG CAP PO SCH ×2 (08:15→20:44)
[2019-02-23] MEDS: ALLOPURINOL 300 MG TAB PO SCH (08:15)
[2019-02-23] MEDS ORDERED: POTASSIUM CHLORIDE ER 20 MEQ TAB.ER PO STA (09:35)
--- NOTE | 2019-02-23 11:50 | PN ---
PROGRESS NOTE Patient is seen for followup for acute kidney injury and severe volume overload. The patient is maintained on Lasix drip at 10 mg an hour. He has been transferred out of the ICU. He has had good urine output, 24 hour urine output documented at 2.6 L. Weight continues to decrease. PHYSICAL EXAMINATION: On examination, blood pressure this morning was 119/69, heart rate 80 per minute. Patient is afebrile. Examination of the heart S1, S2. Examination of the lungs, decreased breath sounds at bases. Distant lung sounds and heart sounds are heard. Abdomen is soft, morbidly obese. Examination of lower extremities shows significant chronic and skin changes with chronic lower extremity edema. Legs are wrapped. There is some weeping noted as well. LAB: Show sodium 137, potassium 3.5, CO2 39, BUN 46, serum creatinine 2.13. ASSESSMENT: 1. Acute kidney injury secondary to hypotension, sepsis. Renal function stable. Serum creatinine staying at 2.1 mg/dL. The patient is maintained on Lasix drip, which we will continue. His BUN is not significantly elevated and metabolic alkalosis is also stable. We can discontinue the Lasix drip tomorrow. 2. Chronic kidney disease stage 3 secondary to diabetic kidney disease and nephrosclerosis. 3. Severe volume overload, slowly improving. Weight has decreased. 4. Hypokalemia secondary to diuretics. We will replace. 5. Metabolic acidosis initially on admission secondary to renal failure, status post sodium bicarb, currently more towards metabolic alkalosis secondary to diuresis, maintained on Diamox. PLAN: Continue with the Lasix drip for one more day. Replace potassium and repeat labs in a.m. We can switch to IV push Lasix tomorrow. MMODL / IJN: [id number] /
[2019-02-23 12:14] LABS: Glucose,Whole Blood 122 mg/dL (75-99)
[2019-02-23] MEDS: TRIAMCINOLONE 0.1% CREAM 80 GM TUBE TOPICAL SCH ×2 (16:06→23:07)
[2019-02-23] MEDS: CEFEPIME 2 GM in SODIUM CHLORIDE 0.9% 100 ML IVPB SCH (16:51)
[2019-02-23 16:58] LABS: Glucose,Whole Blood 110 mg/dL (75-99)
[2019-02-23 21:37] LABS: Glucose,Whole Blood 113 mg/dL (75-99)
[2019-02-23] MEDS: NOREPINEPHRINE 4 MG in SODIUM CHLORIDE 0.9% 250 ML IV SCH (21:49)
--- NOTE | 2019-02-23 23:06 | PN ---
PROGRESS NOTE DATE OF SERVICE: February 23, 2019 PRESENTING COMPLAINT: Cellulitis. INTERVAL HISTORY: This morbidly obese gentleman with bilateral lower extremity lymphedema with secondary severe cellulitis including that of the scrotum, presented with septic picture, status post Levophed. Patient remains to have Mcknight catheter, remains on a remains on Lasix drip and also being treated for UTI. Overall doing better. REVIEW OF SYSTEMS: Done for constitutional, cardiovascular, GI, pulmonary: Relevant findings as above. CURRENT MEDICATIONS: Reviewed and include Lasix drip. EXAMINATION: VITAL SIGNS: Afebrile. Pulse 88, respiratory rate 16, blood pressure 95/57, pulse ox 97% on 4 L. GENERAL APPEARANCE: Sitting up, comfortable. EYES: Pupils are equal. Conjunctivae normal. NECK: JVD unable to assess. Mass not palpable. RESPIRATORY: Effort increased. LUNGS: Distant breath sounds. CARDIOVASCULAR: Heart sounds muffled. Edema present. ABDOMEN: Distended, soft. Liver and spleen not palpable. PSYCHIATRY: Alert and oriented x3. Mood and affect normal. LYMPHATICS: Bilateral lower extremity lymphedema. DERMATOLOGICAL: Cellulitis of both lower extremities, groin, scrotal area. INVESTIGATIONS: White count 5.6, hemoglobin 12.4, potassium 3.5, BUN 46, creatinine 2.13, bicarb 39. ASSESSMENT: 1. Acute severe cellulitis with multiple including involving both lower extremities, groin, scrotal area with improvement. 2. Acute scrotal cellulitis. 3. Septic shock on presentation status post IV fluids, Levophed drip. 4. Acute urinary tract infection with Proteus secondary to cystitis. 5. Morbid obesity, BMI more than 35. 6. Chronic medical debility because of morbid obesity. 7. Diabetes mellitus type 2 on oral hypoglycemic. 8. Gastroesophageal reflux disease. 9. Essential hypertension. 10.Chronic kidney disease stage 4 probably from nephrosclerosis and diabetic nephropathy. 11.Chronic bilateral lower extremity wounds. 12.Hypothyroidism. 13.Persistent atrial fibrillation rate controlled. 14.Metabolic acidosis from dialysis. PLAN: Awaiting input from Dr. Elias for antibiotics. Hopefully, patient can be discharged home in next 1-2 days. The patient has declined going to inpatient rehab. MMODL / IJN: [id number] /
[2019-02-24] MEDS: ACETAMINOPHEN TAB 325 MG TAB PO PRN ×4 (02:59→21:57)
[2019-02-24] MEDS: HYDROcodone/APAP 10-325MG 1 EACH TAB PO PRN ×3 (06:10→18:36)
[2019-02-24] MEDS: LEVOTHYROXINE 75 MCG TAB PO SCH (06:10)
[2019-02-24 06:33] LABS: Glucose,Whole Blood 136 mg/dL (75-99)
[2019-02-24 06:43] LABS: Anisocytosis Slight; Basophils % (A) 1 %; Eosinophils # (A) 0.4 k/uL (0-0.7); Eosinophils % (A) 8 %; HCT 42.2 % (39.0-53.0); HGB 12.3 gm/dL (13.0-17.5); Hypochromasia Marked; Lymphocytes # (A) 0.8 k/uL (1.0-4.8); Lymphocytes % (A) 17 %; MCH 28.7 pg (25.0-35.0); MCHC 29.2 g/dL (31.0-37.0); MCV 98.5 fL (80.0-100.0); Macrocytosis Slight; Mean Platelet Volume 8.3; Monocytes # (A) 0.3 k/uL (0-1.0); Monocytes % (A) 6 %; Neutrophils # (A) 3.2 k/uL (1.3-7.7); Neutrophils % (A) 67 %; Platelet Count 214 k/uL (150-450); RBC 4.29 m/uL (4.30-5.90); WBC 4.7 k/uL (3.8-10.6)
[2019-02-24 06:54] LABS: Calcium 8.6 mg/dL (8.4-10.2); Potassium 3.5 mmol/L (3.5-5.1)
[2019-02-24] MEDS: INSULIN ASPART (NovoLOG) 100 UNIT/ML VIAL SQ SCH ×4 (07:44→21:53)
[2019-02-24] MEDS: acetaZOLAMIDE 250 MG TAB PO SCH ×2 (08:37→21:51)
[2019-02-24] MEDS: ALLOPURINOL 300 MG TAB PO SCH (08:37)
[2019-02-24] MEDS: PANTOPRAZOLE 40 MG TABLET PO SCH (08:37)
[2019-02-24] MEDS: METOPROLOL TARTRATE 25 MG TAB PO SCH ×2 (08:37→21:51)
[2019-02-24] MEDS: FERROUS SULFATE 325 MG TAB PO SCH ×2 (08:37→21:51)
[2019-02-24] MEDS: HEPARIN SODIUM,PORCINE 5,000 UNIT/ML 1 ML VIAL SQ SCH ×2 (08:37→16:42)
--- NOTE | 2019-02-24 10:00 | P.PN ---
Subjective Patient is seen in follow-up for acute kidney injury. Renal function is stable - creatinine 2.14 today. Patient is maintained on Lasix drip at 10 mL an hour. He is nonoliguric. Urine output documented as 4.3 L in the last 24 hours. Also being treated for UTI. Urine culture positive for Proteus. Denies chest pain or shortness of breath. Oral intake is good. No vomiting or diarrhea. Vital signs are stable. General: The patient appeared well nourished and normally developed. HEENT: Head exam is unremarkable. Neck is without jugular venous distension. LUNGS: Breath sounds decreased. HEART: Rate and Rhythm are regular. First and second heart sounds normal. No murmurs, rubs or gallops. ABDOMEN: Bowel sounds present. Morbidly obese. EXTREMITITES: 2+ edema. Chronic skin changes noted. Objective - Vital Signs Vital signs: Vital Signs Temp 96.3 F L 02/24/19 08:00 Pulse 80 02/24/19 08:00 Resp 16 02/24/19 08:00 BP 112/66 02/24/19 08:00 Pulse Ox 97 02/24/19 08:00 Intake & Output 02/23/19 02/24/19 02/24/19 18:59 06:59 18:59 Intake Total 892 1223.833 Output Total 2300 2075 Balance -1408 -851.167 Intake: IV 240 100 Furosemide 100 mg In 80 Sodium Chloride 0.9% 90 ml @ 10 MG/HR 10 mls/hr IV .Q10H [facility] Rx#: [id number] NS 160 100 Intake, IV Titration 100 93.833 Amount Furosemide 100 mg In 100 93.833 Sodium Chloride 0.9% 90 ml @ 10 MG/HR 10 mls/hr IV .Q10H [facility] Rx#: [id number] Oral 552 1030 Output: Urine 2300 2075 Other: Voiding Method Indwelling Catheter # Voids 0 - Labs CBC & Chem 7: 02/24/19 06:07 02/24/19 06:07 Labs: Abnormal Lab Results - Last 24 Hours (Table) 02/23/19 02/23/19 02/23/19 Range/Units 12:08 16:52 21:36 RBC (4.30-5.90) m/uL Hgb (13.0-17.5) gm/dL MCHC (31.0-37.0) g/dL RDW (11.5-15.5) % Lymphocytes # (1.0-4.8) k/uL Chloride (98-107) mmol/L Carbon Dioxide (22-30) mmol/L BUN (9-20) mg/dL Creatinine (0.66-1.25) mg/dL Glucose (74-99) mg/dL POC Glucose (mg/dL) 122 H 110 H 113 H (75-99) mg/dL 02/24/19 02/24/19 02/24/19 Range/Units 06:07 06:07 06:32 RBC 4.29 L (4.30-5.90) m/uL Hgb 12.3 L (13.0-17.5) gm/dL MCHC 29.2 L (31.0-37.0) g/dL RDW 18.0 H (11.5-15.5) % Lymphocytes # 0.8 L (1.0-4.8) k/uL Chloride 92 L (98-107) mmol/L Carbon Dioxide 38 H (22-30) mmol/L BUN 45 H (9-20) mg/dL Creatinine 2.14 H (0.66-1.25) mg/dL Glucose 143 H (74-99) mg/dL POC Glucose (mg/dL) 136 H (75-99) mg/dL Assessment and Plan Plan: Assessment: 1. Acute kidney injury. Initially due to hypotension and sepsis. Now there appears to be a component of cardiorenal syndrome. Renal function stable. Creatinine 2.14 today. 2. Chronic kidney disease stage III. Creatinine from November 2018 was near 2. Etiologies nephrosclerosis and component of diabetic kidney disease as he does have proteinuria. 3. Morbid obesity. 4. UTI with urine culture positive for Proteus. 5. Hypokalemia secondary to diuresis. Magnesium normal. 6. Volume overload. 7. Metabolic alkalosis secondary to diuresis. Maintained on Diamox. 8. Lower extremity cellulitis. Maintained on IV antibiotics. Infectious dise ase following. Plan: Maintain Lasix drip at 10 mL an hour for now. I will transition him over to o ral Demadex upon discharge. Replace potassium. 80 mEq today. Continue to monitor renal function and urine output.
[2019-02-24 11:51] LABS: Glucose,Whole Blood 132 mg/dL (75-99)
[2019-02-24] MEDS: DOCUSATE 100 MG CAP PO SCH ×2 (12:05→21:51)
[2019-02-24] MEDS: POTASSIUM CHLORIDE ER 20 MEQ TAB.ER PO SCH ×2 (12:12→16:37)
[2019-02-24] MEDS: FUROSEMIDE 100 MG in SODIUM CHLORIDE 0.9% 90 ML IV SCH (16:28)
[2019-02-24] MEDS: TRIAMCINOLONE 0.1% CREAM 80 GM TUBE TOPICAL SCH (16:28)
[2019-02-24] MEDS: ERGOCALCIFEROL 50,000 UNIT CAP PO SCH (16:34)
[2019-02-24] MEDS: CEFEPIME 2 GM in SODIUM CHLORIDE 0.9% 100 ML IVPB SCH (16:37)
[2019-02-24 16:58] LABS: Glucose,Whole Blood 118 mg/dL (75-99)
[2019-02-24 21:11] LABS: Glucose,Whole Blood 134 mg/dL (75-99)
[2019-02-24 22:27] VITALS: RESP 18
--- NOTE | 2019-02-24 22:47 | P.PN ---
Subjective Progress Note Date: 02/24/19 53-year-old male who has morbid superobesity is brought to Hospital by EMS with a several-day history of worsening symptoms. The patient relates he was having increasing weakness, increasing swelling to his scrotum became much more painful. He also is having increasing pain to his right lower extremity. This is of great interest because the family members are able to a couple times a day get him to stand although briefly so that he can toilet. The right leg became so painful that he was having a hard time standing at all. With these increasing symptoms he agreed to be brought to hospital. He relates he has started to feel slightly better. The scrotum is still painful but less swollen. The right leg is painful but less so. He is not having fevers or chills but often does not. The patient has had full resuscitation with greater then 5 L of normal saline, and has also required epinephrine therapy that is on hold at this time. 02/18/2019 patient remains in intensive care unit, intermittently on vasopressor therapy. Urine output finally his exceeded fluid intake with a negative fluid balance today. His extensive edema destined to be slightly improved. Patient complains of severe pain to his scrotum into his lower extremities. 02/21/2019 patient remains on Lasix drip edema improving some negative balance of fluid is occurring 02/24/2019 patient's status has had some improvement. Plans for discharge to home are in process, bilingual case manager notes are all reviewed revealing evidence of the patient and family want him to go home not to a rehab center. Does appear to need a Bernardo lift and this is being obtained. IV access to be arranged. Objective - Vital Signs Vital signs: Vital Signs Temp 97.8 F 02/24/19 20:00 Pulse 88 02/24/19 20:00 Resp 18 02/24/19 20:00 BP 111/76 02/24/19 20:00 Pulse Ox 95 02/24/19 20:00 Intake & Output 02/24/19 02/24/19 02/25/19 06:59 18:59 06:59 Intake Total 1223.833 420 Output Total 2075 1700 Balance -851.167 420 -1700 Intake: IV 100 NS 100 Intake, IV Titration 93.833 Amount Furosemide 100 mg In 93.833 Sodium Chloride 0.9% 90 ml @ 10 MG/HR 10 mls/hr IV .Q10H BENITO Rx#: [id number] Oral 1030 420 Output: Urine 2075 1700 Other: # Voids 0 - Exam 53-year-old male with superobesity relates it is more comfortable HEENT: Anicteric conjunctiva are pink and moist nasal mucosa grossly intact without significant lesions, there is no thrush. Poor dentition Neck: The neck is supple without significant lymphadenopathy or thyromegaly. Lungs: Good bilateral air entry without significant crackles or wheezing. There is no significant bronchial sounds. There is no egophony or dullness. Heart: Regular rate and rhythm with an audible S1-S2, no S3 no S4. There is no significant murmur click or rub, PMI was nondisplaced. Abdomen: Obese Positive bowel sounds soft and nontender without palpable masses or organomegaly. There was no guarding or rebound. Extremities: The upper extremities do not have any lesions in the IV site left arm is about troubles. The right lower extremity shows evidence of the chronic lymphedema. He has small areas that we put on the thigh and a blue pad is in place to catch the drainage. The right calf and the lateral surfaces of his the 2 ulcerations and please see the nursing documentation regarding his 2 ulcers. Left leg has evidence of lymphedema with some drainage on the thigh. Lymphedema drainage is not unusual for him. The scrotum is very swollen and remains tender. Upon evaluation there were no open ulcerations just some moisture from oozing of the scrotal tissue. Has moisture in the fold under the large abdominal pannus. Neuro: Awake alert oriented to person place and time. There are no acute new gross focal sensory motor deficits. - Labs CBC & Chem 7: 02/24/19 06:07 02/24/19 06:07 Labs: Abnormal Lab Results - Last 24 Hours (Table) 02/24/19 02/24/19 02/24/19 Range/Units 06:07 06:07 06:32 RBC 4.29 L (4.30-5.90) m/uL Hgb 12.3 L (13.0-17.5) gm/dL MCHC 29.2 L (31.0-37.0) g/dL RDW 18.0 H (11.5-15.5) % Lymphocytes # 0.8 L (1.0-4.8) k/uL Chloride 92 L (98-107) mmol/L Carbon Dioxide 38 H (22-30) mmol/L BUN 45 H (9-20) mg/dL Creatinine 2.14 H (0.66-1.25) mg/dL Glucose 143 H (74-99) mg/dL POC Glucose (mg/dL) 136 H (75-99) mg/dL 02/24/19 02/24/19 02/24/19 Range/Units 11:49 16:56 21:10 RBC (4.30-5.90) m/uL Hgb (13.0-17.5) gm/dL MCHC (31.0-37.0) g/dL RDW (11.5-15.5) % Lymphocytes # (1.0-4.8) k/uL Chloride (98-107) mmol/L Carbon Dioxide (22-30) mmol/L BUN (9-20) mg/dL Creatinine (0.66-1.25) mg/dL Glucose (74-99) mg/dL POC Glucose (mg/dL) 132 H 118 H 134 H (75-99) mg/dL Laboratory Results WBC 4.7 k/uL (3.8-10.6) 02/24/19 06:07 RBC 4.29 m/uL (4.30-5.90) L 02/24/19 06:07 Hgb 12.3 gm/dL (13.0-17.5) L 02/24/19 06:07 Hct 42.2 % (39.0-53.0) 02/24/19 06:07 MCV 98.5 fL (80.0-100.0) 02/24/19 06:07 MCH 28.7 pg (25.0-35.0) 02/24/19 06:07 MCHC 29.2 g/dL (31.0-37.0) L 02/24/19 06:07 RDW 18.0 % (11.5-15.5) H 02/24/19 06:07 Plt Count 214 k/uL (150-450) 02/24/19 06:07 Neutrophils % 67 % 02/24/19 06:07 Lymphocytes % 17 % 02/24/19 06:07 Monocytes % 6 % 02/24/19 06:07 Eosinophils % 8 % 02/24/19 06:07 Basophils % 1 % 02/24/19 06:07 Neutrophils # 3.2 k/uL (1.3-7.7) 02/24/19 06:07 Lymphocytes # 0.8 k/uL (1.0-4.8) L 02/24/19 06:07 Monocytes # 0.3 k/uL (0-1.0) 02/24/19 06:07 Eosinophils # 0.4 k/uL (0-0.7) 02/24/19 06:07 Basophils # 0.0 k/uL (0-0.2) 02/24/19 06:07 Hypochromasia Marked 02/24/19 06:07 Poikilocytosis Slight 02/17/19 06:43 Anisocytosis Slight 02/24/19 06:07 Macrocytosis Slight 02/24/19 06:07 PT 14.8 sec (9.0-12.0) H 02/12/19 21:55 INR 1.5 (<1.2) H 02/12/19 21:55 APTT 26.4 sec (22.0-30.0) 02/12/19 21:55 Sodium 137 mmol/L (137-145) 02/24/19 06:07 Potassium 3.5 mmol/L (3.5-5.1) 02/24/19 06:07 Chloride 92 mmol/L (98-107) L 02/24/19 06:07 Carbon Dioxide 38 mmol/L (22-30) H 02/24/19 06:07 Anion Gap 7 mmol/L 02/24/19 06:07 BUN 45 mg/dL (9-20) H 02/24/19 06:07 Creatinine 2.14 mg/dL (0.66-1.25) H 02/24/19 06:07 Est GFR (CKD-EPI)AfAm 39 (>60 ml/min/1.73 sqM) 02/24/19 06:07 Est GFR (CKD-EPI)NonAf 34 (>60 ml/min/1.73 sqM) 02/24/19 06:07 Glucose 143 mg/dL (74-99) H 02/24/19 06:07 POC Glucose (mg/dL) 134 mg/dL (75-99) H 02/24/19 21:10 POC Glu Bureau Director ID Julisa Raymundo 02/24/19 21:10 Plasma Lactic Acid Chong 1.7 mmol/L (0.7-2.0) 02/12/19 21:55 Calcium 8.6 mg/dL (8.4-10.2) 02/24/19 06:07 Phosphorus 5.5 mg/dL (2.5-4.5) H 02/14/19 04:55 Magnesium 2.0 mg/dL (1.6-2.3) 02/23/19 05:35 Total Bilirubin 2.5 mg/dL (0.2-1.3) H 02/14/19 04:55 AST 19 U/L (17-59) 02/14/19 04:55 ALT 12 U/L (21-72) L 02/14/19 04:55 Alkaline Phosphatase 170 U/L (38-126) H 02/14/19 04:55 Troponin I 0.014 ng/mL (0.000-0.034) 02/13/19 02:30 Total Protein 6.6 g/dL (6.3-8.2) 02/14/19 04:55 Albumin 2.9 g/dL (3.5-5.0) L 02/14/19 04:[address] [facility] 02/13/19 08:13 Urine Appearance Cloudy (Clear) 02/13/19 08:13 Urine pH 5.5 (5.0-8.0) 02/13/19 08:13 Ur Specific Carrier 1.020 (1.001-1.035) 02/13/19 08:13 Urine Protein 1+ (Negative) H 02/13/19 08:13 Urine Glucose (UA) Negative (Negative) 02/13/19 08:13 Urine Ketones Negative (Negative) 02/13/19 08:13 Urine Blood Moderate (Negative) H 02/13/19 08:13 Urine Nitrite Negative (Negative) 02/13/19 08:13 Urine Bilirubin 1+ (Negative) H 02/13/19 08:13 Urine Urobilinogen 3.0 mg/dL (<2.0) 02/13/19 08:13 Ur Leukocyte Esterase Large (Negative) H 02/13/19 08:13 Urine RBC 12 /hpf (0-5) H 02/13/19 08:13 Urine WBC 68 /hpf (0-5) H 02/13/19 08:13 Urine WBC Clumps Few /hpf (None) H 02/13/19 08:13 Ur Squamous Epith Cells 1 /hpf (0-4) 02/13/19 08:13 Amorphous Sediment Rare /hpf (None) H 02/13/19 08:13 Urine Bacteria Rare /hpf (None) H 02/13/19 08:13 Hyaline Casts 3 /lpf (0-2) H 02/13/19 08:13 Urine Mucus Rare /hpf (None) H 02/13/19 08:13 Ur Random Creatinine 55.8 mg/dL 02/15/19 18:25 U Random Total Protein 27 mg/dL (<12) H 02/15/19 18:25 Microbiology 02/12/19 23:05 Blood Blood Culture - Final No Growth after 144 hours 02/13/19 10:35 Leg - Right Gram Stain - Final 02/13/19 10:35 Leg - Right Wound Culture - Final Beta Hemolytic Strep Group G Acinetobacter teddy/haemol 02/14/19 20:05 Urine,Catheterized Urine Culture - Final 02/13/19 00:10 Urine,Voided Urine Culture - Final Proteus Species Assessment and Plan (1) Scrotal edema Current Visit: Yes Status: Acute Code(s): N50.89 - OTHER SPECIFIED DISORDERS OF THE MALE GENITAL ORGANS SNOMED Code(s): 93336966 (2) Urinary tract infection Current Visit: Yes Status: Acute Code(s): N39.0 - URINARY TRACT INFECTION, SITE NOT SPECIFIED SNOMED Code(s): 72358665 (3) Acute on chronic renal failure Current Visit: Yes Status: Acute Code(s): N17.9 - ACUTE KIDNEY FAILURE, UNSPECIFIED; N18.9 - CHRONIC KIDNEY DISEASE, UNSPECIFIED SNOMED Code(s): 012377811 (4) Lymphedema of both lower extremities Narrative/Plan: 53-year-old male with superobesity who is generally homebound and is only able to get out of the house with his extrawide wheelchair in the family van. It however is an endeavor for the family to accomplish this. The patient cannot go to any primary care physician offices and that they do not have equipment to accommodate him. He was seen for several visits the wound healing Center but it was in extreme difficulty with transportation via EMS and constantly is cared for by the visiting physician on a quarterly basis. He does have a home nurse who does help with wound care. The patient does have some ulcerations in the right lateral leg and Aquacel silver is being utilized seems to be helpful. We'll ask for Covan so that the lymphedema wraps can be kept in place this works much better for him than Artur wraps. Intra-dry for the folds to try to help treat them dry For pneumonic therapy based on his recent cultures also will be an adequate choice with greatest concern to be a urinary tract infection. Pseudomonas was most recent pathogen. Given his acute on chronic renal failure would avoid further doses of vancomycin at this time. If there is any further concern about MRSA or other resistant gram-positive organisms daptomycin will be considered. The patient is on the appropriate bariatric air bed Dietary consult is in process The patient has had evidence of sepsis with relative hypotension and has been on vasopressor therapy which is now on hold. Hopefully with the current resus citation efforts he will not require further vasopressor therapy. The source of sepsis is still most likely the urinary system at this time based upon current findings. Of concern is the patient's difficulty with trying to stand because some pain to his right leg. Given his level of discomfort would like to evaluate for thrombus although would not be possible. 02/18/2019 over the weekend the patient's cultures did finalize, Acinetobacter baumannii was isolated. Unasyn is not available, and on-call applied cefepime. Proteus was lasted from the urine as the most likely source of his sepsis for which the cefepime would be also effective. Discharge plan is in process and remains unclear at this time. Ability to perform home intravenous antibiotictherapy will need to be investigated. Local wound care continues. Patient has been seen by urology and a Mcknight catheter was able to be applied although very difficult in nature. Proteus isolated from the urine and as noted likely pathogen of current sepsis. 02/21/2019 patient doing relatively well with current antibiotic therapy with ce fepime, this will continue and likely will be utilized in the home at discharge. Remains on Lasix drip at this time. 02/24/2019 there is been improvement. Transition off of intravenous Lasix. Patient seems more stable. Will be going to the home setting. sales floor manager notes reviewed and patient needs a Bernardo lift for home. This may help his status in the home setting. IV access is required and requested for home, cefepime 2 g every 24 hours will be utilized, dose appropriate for his chronic kidney disease. Hopefully the home care nurse can help with some of the wound care and potentially some supplies to help him with the lower extremity edema issues. There are significant barriers in the outpatient setting in that patient has great difficulties with transportation possibly will work closely with the home care agency regarding his end of therapy antibiotics. Likely will complete in 2 weeks, 4 days later have urinalysis and culture to make sure that he is doing well and then consider removal of the IV access at that time. Current Visit: Yes Status: Acute Code(s): I89.0 - LYMPHEDEMA, NOT ELSEWHERE CLASSIFIED SNOMED Code(s): 67642611409892961 (5) Venous stasis ulcer of right lower leg with edema of right lower leg Current Visit: Yes Status: Acute Code(s): I83.019 - VARICOSE VEINS OF RIGHT LOWER EXTREMITY W ULCER OF UNSP SITE; I83.891 - VARICOSE VEINS OF R LOW EXTREM WITH OTHER COMPLICATIONS; L97.919 - NON-PRS CHRONIC ULC UNSP PRT OF R LOW LEG W UNSP SEVERITY; R60.9 - EDEMA, UNSPECIFIED SNOMED Code(s): 06498982941433864
--- NOTE | 2019-02-24 22:55 | PN ---
PROGRESS NOTE DATE OF SERVICE: February 24, 2019. PRESENTING COMPLAINT: Cellulitis. INTERVAL HISTORY: This morbidly obese gentleman with bilateral lower extremity lymphedema with secondary severe cellulitis including that of the scrotum, presented with septic picture, status post Levophed. The patient has a Mcknight catheter and had a Lasix drip this morning. Also being treated for UTI. Continues to feel better. REVIEW OF SYSTEMS: Done for constitutional, cardiovascular, GI, pulmonary, dermatological, relevant findings as above. CURRENT MEDICATIONS: Reviewed that include Lasix drip and IV cefepime. PHYSICAL EXAMINATION: VITAL SIGNS: Temperature 96.3, pulse 80, respirations 16, blood pressure 112/66, pulse ox 97% on 4 L. GENERAL APPEARANCE: Sitting up, awake. EYES: Pupils are equal. Conjunctivae normal. NECK: JVD unable to assess. Mass not palpable. RESPIRATORY: Effort increased. LUNGS: Distant breath sounds. CARDIOVASCULAR: Heart sounds muffled. Edema present. ABDOMEN: Distended. Soft. Liver and spleen not palpable. PSYCHIATRY: Alert and oriented times three. Mood and affect normal. LYMPHATICS: Bilateral lower extremity lymphedema. DERMATOLOGICAL: Cellulitis lower extremities and wounds. INVESTIGATIONS: White count 4.7, hemoglobin 12.3, potassium 3.5, bicarb 38, BUN 45, creatinine 2.14. Accu-Cheks are noted. ASSESSMENT: 1. Acute severe cellulitis with multiple organisms including both lower extremities, groin, scrotal area and wounds with improvement. 2. Acute scrotal cellulitis. 3. Septic shock on presentation status post IV fluids Levophed. 4. Acute urinary tract infection with Proteus secondary to cystitis. 5. Morbid obesity BMI more than 35. 6. Chronic medical debility because of morbid obesity. 7. Diabetes mellitus type 2 on oral hypoglycemic. 8. Gastroesophageal reflux disease. 9. Essential hypertension. 10.Chronic kidney disease stage 4 from nephrosclerosis and diabetic nephropathy. 11.Chronic bilateral lower extremity wounds. 12.Hypothyroidism. 13.Persistent atrial fibrillation rate controlled. 14.Metabolic alkalosis from diuresis. PLAN: Spoke to Dr. Tan. We will switch the patient to oral Demadex. Did communicate with Dr. Elias. He is coordinating patient's discharge antibiotics. has been ordered. The patient will be getting cefepime to go home. Care was also discussed with the patient. The patient also discussed with the case coordinator about discharge planning. Patient, because not really able to ambulate, should be a candidate for a Bernardo lift. Total time spent today was about 45 minutes with over 25 to 30 minutes of discussion. Lasix drip is being discontinued and Demadex is being started. MMODL / CHERIEN: [id number] /
[2019-02-25] MEDS: HYDROcodone/APAP 10-325MG 1 EACH TAB PO PRN ×3 (00:29→14:02)
[2019-02-25] MEDS: HEPARIN SODIUM,PORCINE 5,000 UNIT/ML 1 ML VIAL SQ SCH ×2 (00:29→09:00)
[2019-02-25] MEDS: TORSEMIDE 20 MG TAB PO SCH ×2 (00:30→09:00)
[2019-02-25] MEDS: TRIAMCINOLONE 0.1% CREAM 80 GM TUBE TOPICAL SCH ×2 (00:31→09:01)
[2019-02-25 06:11] LABS: Glucose,Whole Blood 124 mg/dL (75-99)
[2019-02-25] MEDS: PSYLLIUM HUSK 100% 6 GM PACKET PO SCH ×2 (06:23→08:59)
[2019-02-25] MEDS: FUROSEMIDE 100 MG in SODIUM CHLORIDE 0.9% 90 ML IV SCH (06:30)
[2019-02-25] MEDS: LEVOTHYROXINE 75 MCG TAB PO SCH (06:33)
[2019-02-25] MEDS: INSULIN ASPART (NovoLOG) 100 UNIT/ML VIAL SQ SCH ×2 (08:52→11:47)
[2019-02-25] MEDS: FERROUS SULFATE 325 MG TAB PO SCH (09:00)
[2019-02-25] MEDS: acetaZOLAMIDE 250 MG TAB PO SCH (09:00)
[2019-02-25] MEDS: PANTOPRAZOLE 40 MG TABLET PO SCH (09:00)
[2019-02-25] MEDS: METOPROLOL TARTRATE 25 MG TAB PO SCH (09:00)
[2019-02-25] MEDS: ALLOPURINOL 300 MG TAB PO SCH (09:00)
--- NOTE | 2019-02-25 10:08 | P.PN ---
Subjective Patient is seen in follow-up for acute kidney injury. Renal function is stable - creatinine 2.14 as of yesterday. Patient is now on oral Demadex. He is nonoliguric. Also being treated for UTI and lower extremity cellulitis. Urine culture positive for Proteus. Denies chest pain or shortness of breath. Oral intake is good. No vomiting or diarrhea. Vital signs are stable. General: The patient appeared well nourished and normally developed. HEENT: Head exam is unremarkable. Neck is without jugular venous distension. LUNGS: Breath sounds decreased. HEART: Rate and Rhythm are regular. First and second heart sounds normal. No murmurs, rubs or gallops. ABDOMEN: Bowel sounds present. Morbidly obese. EXTREMITITES: 2+ edema. Chronic skin changes noted. Objective - Vital Signs Vital signs: Vital Signs Temp 97.2 F L 02/25/19 00:00 Pulse 68 02/25/19 05:30 Resp 18 02/25/19 05:30 BP 99/60 02/25/19 00:00 Pulse Ox 96 02/25/19 00:00 Intake & Output 02/24/19 02/25/19 02/25/19 18:59 06:59 18:59 Intake Total 420 240 Output Total 2901 Balance 420 -2661 Weight 267.7 kg Intake: Oral 420 240 Output: Urine 2900 Stool 1 Other: Voiding Method Indwelling Catheter # Voids 0 # Bowel Movements 0 - Labs CBC & Chem 7: 02/24/19 06:07 02/24/19 06:07 Labs: Abnormal Lab Results - Last 24 Hours (Table) 02/24/19 02/24/19 02/24/19 Range/Units 11:49 16:56 21:10 POC Glucose (mg/dL) 132 H 118 H 134 H (75-99) mg/dL 02/25/19 Range/Units 06:07 POC Glucose (mg/dL) 124 H (75-99) mg/dL Assessment and Plan Plan: Assessment: 1. Acute kidney injury. Initially due to hypotension and sepsis. Now there appears to be a component of cardiorenal syndrome. Renal function stable. Creatinine 2.14 today. 2. Chronic kidney disease stage III. Creatinine from November 2018 was near 2. Etiologies nephrosclerosis and component of diabetic kidney disease as he does have proteinuria. 3. Morbid obesity. 4. UTI with urine culture positive for Proteus. 5. Hypokalemia secondary to diuresis. Magnesium normal. 6. Volume overload. 7. Metabolic alkalosis secondary to diuresis. Maintained on Diamox. 8. Lower extremity cellulitis. Maintained on IV antibiotics. Infectious disease following. Plan: Maintain Demadex 20 mg twice daily. I will add potassium supplementation 20 mEq daily. Anticipate discharge soon. Repeat BMP and magnesium level 2-3 days postdischarge. Patient will need to follow-up outpatient in the next 1-2 weeks.
[2019-02-25] MEDS ORDERED: POTASSIUM CHLORIDE ER 20 MEQ TAB.ER PO SCH (10:15)
[2019-02-25 10:16] LABS: Magnesium 1.9 mg/dL (1.6-2.3)
[2019-02-25] MEDS: ACETAMINOPHEN TAB 325 MG TAB PO PRN (10:17)
[2019-02-25 11:48] LABS: Glucose,Whole Blood 125 mg/dL (75-99)
[2019-02-25 11:57] VITALS: BP 113/66; PULSE 81; TEMP 97.4
[2019-02-25] MEDS: CEFEPIME 2 GM in SODIUM CHLORIDE 0.9% 100 ML IVPB SCH (14:01)
--- NOTE | 2019-02-27 12:41 | DS ---
DISCHARGE SUMMARY DATE OF ADMISSION: 02/13/2019 DATE OF DICTATIN02/26/2019 FINAL DIAGNOSES: 1. Acute severe cellulitis with multiple organisms including both lower extremities, groin, scrotal area and wounds. 2. Acute scrotal cellulitis. 3. Septic shock on presentation, status post IV fluids and Levophed. 4. Acute urinary tract infection with Proteus secondary to cystitis. 5. Morbid obesity, body mass index more than 35. 6. Chronic medical debility because of morbid obesity. 7. Diabetes mellitus type 2 on oral hypoglycemic. 8. Gastroesophageal reflux disease. 9. Essential hypertension. 10.Chronic kidney disease stage 2 from nephrosclerosis and diabetic nephropathy. 11.Chronic bilateral lower extremity wounds. 12.Hypothyroidism. 13.Persistent atrial fibrillation, rate controlled. 14.Metabolic alkalosis from diuresis. CONSULTATION: 1. Dr. Elias, Infectious Disease. 2. Dr. Tan from Nephrology. 3. Dr. Richards from Urology. HOSPITAL STAY: This is a pleasant gentleman with obesity, BMI of 33.8, who has lower extremity wounds, presented with severe cellulitis of the scrotum, groin, lower extremity with wounds. Cultures grew multiple organisms. The patient also found to have UTI. A Mcknight catheter was placed. Wounds did significantly improved. Patient advised to go to rehab, but really wanted to go home. Hence, that is being arranged patient cellulitis did improve. Scrotum did shrink in size. Mcknight catheter was discontinued on the day of discharge was making his own urine. PHYSICAL EXAMINATION: Temperature 97.4 pulse 80, respiratory 18, blood pressure 1/3 over 66 pulse ox 92 percent on room air. Lower extremity cellulitis improved but present. Wounds are present. INVESTIGATIONS: BUN 50, creatinine 2.49. DISCHARGE MEDICATIONS: 1. Langston 10 one tablet q.6 p.r.n. 2. Protonix 40 mg daily. 3. Allopurinol 300 mg p.o. daily. 4. Lac-Hydrin 12% topical b.i.d. p.r.n. 5. Vitamin D2 fifty thousand units p.o. on Mondays. 6. Iron 325 b.i.d. 7. Synthroid 75 mcg a day. 8. Januvia 25 mg a day. 9. Nystatin topical b.i.d. p.r.n. 10.Cefepime 2 g IV piggyback daily for 14 days through midline. 11.Lopressor 25 mg t.i.d. 12.Metamucil 6 g p.o. b.i.d. 13.Demadex 20 mg b.i.d. 14.Kenalog 0.1% application topical b.i.d. 15.Diamox 250 mg b.i.d., 20 tablets. Follow up with Dr. Welch in 1 to 2 days. Follow up with [facility]. The patient is not able to get himself transported for appointments. He has said that repeatedly. A Bernardo lift has been ordered. MMODL / IJN: [id number] /
== END 2019-02-25 15:37 | disposition home health service (06) | DRG 871 ==
LOC: EC 20:24 → 2SICU 02-13 02:09 → 3SCARD 02-23 07:55
PROVIDERS: ADMIT Hospitalist; ATTEND Hospitalist
PROC: 0T9B80Z Drainage of Bladder with Drainage Device, Via Natural or Artificial Opening Endoscopic (ICD-10-PCS; principal; 2019-02-13)
PROC: 0T9B80Z Drainage of Bladder with Drainage Device, Via Natural or Artificial Opening Endoscopic (ICD-10-PCS; 2019-02-14)
PROC: 05HF33Z Insertion of Infusion Device into Left Cephalic Vein, Percutaneous Approach (ICD-10-PCS; 2019-02-25)
DX: A41.9 Sepsis, unspecified organism (principal); L89.813 Pressure ulcer of head, stage 3; R65.21 Severe sepsis with septic shock; N17.0 Acute kidney failure with tubular necrosis; E87.4 Mixed disorder of acid-base balance; I48.1 Persistent atrial fibrillation; L03.115 Cellulitis of right lower limb; L03.311 Cellulitis of abdominal wall; L03.116 Cellulitis of left lower limb; L97.929 Non-pressure chronic ulcer of unspecified part of left lower leg with unspecified severity; L97.919 Non-pressure chronic ulcer of unspecified part of right lower leg with unspecified severity; I13.0 Hypertensive heart and chronic kidney disease with heart failure and stage 1 through stage 4 chronic kidney disease, or unspecified chronic kidney disease; N18.4 Chronic kidney disease, stage 4 (severe); Z68.45 Body mass index [BMI] 70 or greater, adult; N49.2 Inflammatory disorders of scrotum; B96.4 Proteus (mirabilis) (morganii) as the cause of diseases classified elsewhere; E03.9 Hypothyroidism, unspecified; E11.22 Type 2 diabetes mellitus with diabetic chronic kidney disease; E66.01 Morbid (severe) obesity due to excess calories; E86.0 Dehydration; E87.6 Hypokalemia; T50.2X5A Adverse effect of carbonic-anhydrase inhibitors, benzothiadiazides and other diuretics, initial encounter; I48.2 Chronic atrial fibrillation; I50.9 Heart failure, unspecified; I83.018 Varicose veins of right lower extremity with ulcer other part of lower leg; K21.9 Gastro-esophageal reflux disease without esophagitis; L25.9 Unspecified contact dermatitis, unspecified cause; N13.9 Obstructive and reflux uropathy, unspecified; N30.90 Cystitis, unspecified without hematuria; N43.3 Hydrocele, unspecified; N47.8 Other disorders of prepuce; N50.89 Other specified disorders of the male genital organs; Z16.11 Resistance to penicillins; Z79.01 Long term (current) use of anticoagulants; Z79.84 Long term (current) use of oral hypoglycemic drugs; Z79.890 Hormone replacement therapy; Z79.899 Other long term (current) drug therapy; Z83.3 Family history of diabetes mellitus; Z86.14 Personal history of Methicillin resistant Staphylococcus aureus infection; Z87.891 Personal history of nicotine dependence; Z83.2 Family history of diseases of the blood and blood-forming organs and certain disorders involving the immune mechanism; R53.81 Other malaise; F41.9 Anxiety disorder, unspecified; R33.8 Other retention of urine; T83.028A Displacement of other urinary catheter, initial encounter; R26.9 Unspecified abnormalities of gait and mobility
CPT/HCPCS: 36410; 36415; 71045; 76770; 76870; 76937; 80048; 80053; 81001; 82570; 83605; 83735; 84100; 84132; 84156; 84484; 85025; 85027; 85610; 85730; 87040; 87070; 87077; 87086; 87186; 87205; 93005; 93306; 93308; 93975; 96361; 96365; 96366; 96367; 96375; 99285

== ENCOUNTER 2019-11-12 10:13 | Inpatient (IN) | payer OTHER ==
[2019-11-12] MEDS ORDERED: ALBUTEROL NEBULIZED 2.5 MG/3 ML INHALATION STA (10:44)
[2019-11-12] MEDS ORDERED: IPRATROPIUM 0.5 MG/2.5 ML NEBU INHALATION STA (10:44)
[2019-11-12] MEDS ORDERED: methylPREDNISolone SOD SUCCI 125 MG/2 ML VIAL IV STA (10:44)
--- NOTE | 2019-11-12 10:56 | ED ---
General Adult HPI - General Chief complaint: Shortness of Breath Stated complaint: chest pain, SOB Time Seen by Provider: 11/12/19 10:24 Source: patient, family, RN notes reviewed, old records reviewed Mode of arrival: wheelchair Limitations: physical limitation - History of Present Illness Initial comments: 54-year-old male presents for evaluation of 3 days of cough and difficulty breathing. Patient's denies fever or chills. Reports some mild chest discomfort associated with his dyspnea. He has chronic bilateral lower extremity edema. States that he's had increased dyspnea specifically when lying flat over the past 3 days. He has remote history of tobacco use, no formal diagnosis of COPD or asthma. - Related Data Home Medications Medication Instructions Recorded Confirmed Hydrocodone/Acetaminophen [[place] 1 tab PO Q6H PRN 10/12/16 11/12/19 10-325] Allopurinol [Zyloprim] 300 mg PO DAILY 10/21/18 11/12/19 Ammonium Lactate Lotion 1 applic TOPICAL BID PRN 10/21/18 11/12/19 [Lac-Hydrin 12% Lotion] Ergocalciferol (Vitamin D2) 50,000 unit PO MO 10/21/18 11/12/19 [Drisdol] Ferrous Sulfate [Iron (65 MG 325 mg PO BID 10/21/18 11/12/19 Elemental)] sitaGLIPtin [Januvia] 25 mg PO DAILY 10/21/18 11/12/19 Nystatin [Nystop] 1 applic TOPICAL BID PRN 02/12/19 11/12/19 Levothyroxine Sodium [Synthroid] 125 mcg PO DAILY 11/12/19 11/12/19 Methylphenidate HCl 20 mg PO DAILY 11/12/19 11/12/19 Metoprolol Tartrate [Lopressor] 25 mg PO BID 11/12/19 11/12/19 Previous Rx's Medication Instructions Recorded Pantoprazole Sodium [Protonix] 40 mg PO DAILY #30 tablet. 11/10/16 Torsemide [Demadex] 20 mg PO BID #60 tab 02/25/19 Allergies Allergy/AdvReac Type Severity Reaction Status Date / Time warfarin [From Coumadin] AdvReac caused GI Verified 11/12/19 11:12 bleed, affected kidney function wool AdvReac Unknown Verified 11/12/19 11:12 Review of Systems ROS Statement: Those systems with pertinent positive or pertinent negative responses have been documented in the HPI. ROS Other: All systems not noted in ROS Statement are negative. Past Medical History Past Medical History: Atrial Fibrillation, Diabetes Mellitus, GERD/Reflux, Hypertension, Renal Disease, Skin Disorder Additional Past Medical History / Comment(s): Bleed related to coumadin, chronic lymphedema, bilateral lower extremity wounds, history of chronic atrial fibrillation, history of GI bleeding related to Coumadin therapy, chronic lymphedema of the lower extremities, morbid obesity with a BMI of 75, chronic kidney disease stage 3-4, hypertension, diabetes mellitus, history of MRSA and multidrug resistant organism infection including gram-negative infections. Hypothyroidism History of Any Multi-Drug Resistant Organisms: MRSA, Other MDRO Date of last positivie culture/infection: 08/21/17 MRSA MDRO Source:: leg rt Past Surgical History: Orthopedic Surgery Additional Past Surgical History / Comment(s): bilateral feet surgery. per patient had pins in his feet. Past Anesthesia/Blood Transfusion Reactions: No Reported Reaction Past Psychological History: Anxiety Smoking Status: Former smoker Past Alcohol Use History: Occasional Past Drug Use History: None Reported - Past Family History Father Family Medical History: Diabetes Mellitus Additional Family Medical History / Comment(s): both legs amputated due to blood clots Mother Additional Family Medical History / Comment(s): lost both of legs, blood clot surgeries, stent in leg, carotid endardectomy General Exam Limitations: physical limitation General appearance: alert, in no apparent distress, obese Head exam: Present: atraumatic, normocephalic Eye exam: Present: normal appearance, PERRL ENT exam: Present: normal exam Neck exam: Present: normal inspection. Absent: tenderness, meningismus Respiratory exam: Present: decreased breath sounds. Absent: respiratory distress, accessory muscle use Cardiovascular Exam: Present: regular rate, irregular rhythm GI/Abdominal exam: Present: soft, distended Extremities exam: Present: pedal edema Neurological exam: Present: alert, CN II-XII intact. Absent: motor sensory deficit Psychiatric exam: Present: normal affect, normal mood Skin exam: Present: warm, dry, intact. Absent: cyanosis, diaphoretic Course Vital Signs 11/12/19 11/12/19 11/12/19 10:19 11:16 11:37 Temperature 97.6 F Pulse Rate 66 91 89 Respiratory 20 Rate Blood Pressure 116/87 O2 Sat by Pulse 99 Oximetry EKG Findings - EKG Comments: EKG Findings:: EKG: Atrial fibrillation, low voltage, right bundle, no ST segment elevation, motion artifact in V4 V5, rate of 95, QRS duration 112, QTC 495 Medical Decision Making - Medical Decision Making 54-year-old male presenting with 3 days of dyspnea and orthopnea. Pulmonary auscultation is difficult secondary to patient's body habitus. X-ray performed, showing CHF versus multifocal pneumonia. Normal white blood cell count, stable hemoglobin, creatinine is at baseline 1.75. His troponin is negative, BNP is mildly elevated 1370. He is given Lasix as well as antibiotics in the emergency department. He has hypoxic in the 80s on room air. Multifactorial dyspnea, reactive airway, obesity, pneumonia, heart failure. - Lab Data Result diagrams: 11/12/19 11:24 11/12/19 11:20 Lab Results 11/12/19 11/12/19 11/12/19 Range/Units 11:20 11:20 11:20 WBC (3.8-10.6) k/uL RBC (4.30-5.90) m/uL Hgb (13.0-17.5) gm/dL Hct (39.0-53.0) % MCV (80.0-100.0) fL MCH (25.0-35.0) pg MCHC (31.0-37.0) g/dL RDW (11.5-15.5) % Plt Count (150-450) k/uL Neutrophils % % Lymphocytes % % Monocytes % % Eosinophils % % Basophils % % Neutrophils # (1.3-7.7) k/uL Lymphocytes # (1.0-4.8) k/uL Monocytes # (0-1.0) k/uL Eosinophils # (0-0.7) k/uL Basophils # (0-0.2) k/uL Hypochromasia Anisocytosis PT (9.0-12.0) sec INR (<1.2) APTT (22.0-30.0) sec Sodium 139 (137-145) mmol/L Potassium 4.5 (3.5-5.1) mmol/L Chloride 99 (98-107) mmol/L Carbon Dioxide 29 (22-30) mmol/L Anion Gap 11 mmol/L BUN 47 H (9-20) mg/dL Creatinine 1.75 H (0.66-1.25) mg/dL Est GFR (CKD-EPI)AfAm 49 (>60 ml/min/1.73 sqM) Est GFR (CKD-EPI)NonAf 43 (>60 ml/min/1.73 sqM) Glucose 147 H (74-99) mg/dL Plasma Lactic Acid Chong 1.3 (0.7-2.0) mmol/L Calcium 8.7 (8.4-10.2) mg/dL Magnesium 2.2 (1.6-2.3) mg/dL Total Bilirubin 1.2 (0.2-1.3) mg/dL AST 26 (17-59) U/L ALT 17 (4-49) U/L Alkaline Phosphatase 229 H (38-126) U/L Troponin I (0.000-0.034) ng/mL NT-Pro-B Natriuret Pep 1370 pg/mL Total Protein 7.5 (6.3-8.2) g/dL Albumin 3.4 L (3.5-5.0) g/dL 11/12/19 11/12/19 11/12/19 Range/Units 11:20 11:20 11:24 WBC 7.2 (3.8-10.6) k/uL RBC 5.48 (4.30-5.90) m/uL Hgb 15.3 (13.0-17.5) gm/dL Hct 51.8 (39.0-53.0) % MCV 94.6 (80.0-100.0) fL MCH 27.8 (25.0-35.0) pg MCHC 29.4 L (31.0-37.0) g/dL RDW 17.2 H (11.5-15.5) % Plt Count 256 (150-450) k/uL Neutrophils % 84 % Lymphocytes % 8 % Monocytes % 4 % Eosinophils % 1 % Basophils % 1 % Neutrophils # 6.0 (1.3-7.7) k/uL Lymphocytes # 0.6 L (1.0-4.8) k/uL Monocytes # 0.3 (0-1.0) k/uL Eosinophils # 0.1 (0-0.7) k/uL Basophils # 0.0 (0-0.2) k/uL Hypochromasia Marked Anisocytosis Slight PT 11.9 (9.0-12.0) sec INR 1.2 H (<1.2) APTT 23.9 (22.0-30.0) sec Sodium (137-145) mmol/L Potassium (3.5-5.1) mmol/L Chloride (98-107) mmol/L Carbon Dioxide (22-30) mmol/L Anion Gap mmol/L BUN (9-20) mg/dL Creatinine (0.66-1.25) mg/dL Est GFR (CKD-EPI)AfAm (>60 ml/min/1.73 sqM) Est GFR (CKD-EPI)NonAf (>60 ml/min/1.73 sqM) Glucose (74-99) mg/dL Plasma Lactic Acid Chong (0.7-2.0) mmol/L Calcium (8.4-10.2) mg/dL Magnesium (1.6-2.3) mg/dL Total Bilirubin (0.2-1.3) mg/dL AST (17-59) U/L ALT (4-49) U/L Alkaline Phosphatase (38-126) U/L Troponin I <0.012 (0.000-0.034) ng/mL NT-Pro-B Natriuret Pep pg/mL Total Protein (6.3-8.2) g/dL Albumin (3.5-5.0) g/dL Disposition Clinical Impression: Acute exacerbation of chronic obstructive pulmonary disease, Community acquired pneumonia, Congestive heart failure Disposition: ADMITTED IP TO THIS [facility] Condition: Stable Is patient prescribed a controlled substance at d/c from ED?: No Referrals: Yuri Myrick MD [Primary Care Provider] - 1-2 days Decision to Admit Reason: Admit from EC Decision Date: 11/12/19 Decision Time: 12:29
--- NOTE | 2019-11-12 11:03 | XR ---
EXAMINATION TYPE: XR chest 1V portable DATE OF EXAM: 11/12/2019 COMPARISON: Prior chest 02/19/2019 HISTORY: Difficulty breathing TECHNIQUE: frontal view of the chest is obtained on 2 images. FINDINGS: The heart is enlarged. There is retrocardiac density obscuring the left hemidiaphragm, lef t costophrenic angle likely blunted. Aorta is dense. No evident pneumothorax. Basilar increased densi ty also suspected on the right. Central vascularity is prominent. There are overlying cardiac leads. IMPRESSION: Findings could represent congestive heart failure, difficult to exclude pneumonia, possi ble basilar effusions. Follow-up recommended.
[2019-11-12] MEDS ORDERED: cefTRIAXone IN SWFI 1,000 MG/10 ML SYRINGE IVP STA (11:09)
[2019-11-12] MEDS ORDERED: FUROSEMIDE 10 MG/ML 4 ML VIAL IV STA (11:09)
[2019-11-12] MEDS ORDERED: AZITHROMYCIN 500 MG in SODIUM CHLORIDE 0.9% 250 ML IVPB STA (11:09)
[2019-11-12 11:37] LABS: Anisocytosis Slight; Basophils % (A) 1 %; Eosinophils # (A) 0.1 k/uL (0-0.7); Eosinophils % (A) 1 %; HCT 51.8 % (39.0-53.0); HGB 15.3 gm/dL (13.0-17.5); Hypochromasia Marked; Lymphocytes # (A) 0.6 k/uL (1.0-4.8); Lymphocytes % (A) 8 %; MCH 27.8 pg (25.0-35.0); MCHC 29.4 g/dL (31.0-37.0); MCV 94.6 fL (80.0-100.0); Mean Platelet Volume 8.2; Monocytes # (A) 0.3 k/uL (0-1.0); Monocytes % (A) 4 %; Neutrophils % (A) 84 %; Platelet Count 256 k/uL (150-450); RBC 5.48 m/uL (4.30-5.90); RDW 17.2 % (11.5-15.5); WBC 7.2 k/uL (3.8-10.6)
[2019-11-12 11:44] LABS: Albumin 3.4 g/dL (3.5-5.0); Calcium 8.7 mg/dL (8.4-10.2); Magnesium 2.2 mg/dL (1.6-2.3); Potassium 4.5 mmol/L (3.5-5.1); Total Bilirubin 1.2 mg/dL (0.2-1.3); Total Protein 7.5 g/dL (6.3-8.2)
[2019-11-12 11:54] LABS: INR 1.2 (<1.2); Partial Thromboplastin Time 23.9 sec (22.0-30.0); Prothrombin Time 11.9 sec (9.0-12.0)
[2019-11-12] MEDS ORDERED: IPRATROPIUM-ALBUTEROL 3 ML NEB INHALATION PRN (12:26)
[2019-11-12] MEDS ORDERED: ASPIRIN 325 MG TAB PO STA (12:27)
[2019-11-12] MEDS: IPRATROPIUM-ALBUTEROL 3 ML NEB INHALATION SCH ×2 (16:53→21:18)
[2019-11-12] MEDS ORDERED: AMMONIUM LACTATE 12% LOTION 225 GM BTL TOPICAL PRN (16:59)
[2019-11-12] MEDS ORDERED: NYSTATIN 100,000 UNIT/GM POWD 15 GM TOPICAL PRN (16:59)
[2019-11-12] MEDS: HYDROcodone/APAP 10-325MG 1 EACH TAB PO PRN ×2 (17:45→23:12)
[2019-11-12] MEDS: INSULIN ASPART (NovoLOG) 100 UNIT/ML VIAL SQ SCH ×2 (18:11→22:15)
[2019-11-12] MEDS ORDERED: METOPROLOL TARTRATE 50 MG TAB PO STA (20:15)
--- NOTE | 2019-11-12 20:45 | P.HPIM ---
History of Present Illness H&P Date: 11/12/19 Chief Complaint: Short of breath History of presenting complaint: This is a pleasant 54-year-old patient of visiting physician Dr. Yuri Atwood. Patient was here in January of last year but extended hospital stay. Patient was then admitted with severe cellulitis with multiple organisms including both lower extremities groin scrotal area and wants. He then also had septic shock. Also had a UTI. Chronic stable medical conditions include chronic medical debility, diabetes, GERD, hypertension, chronic kidney disease diabetic nephropathy, bilateral chronic lower extremity wounds which is cared for by son and hypothyroidism atrial fibrillation. Patient for 2 days now presents with increasing shortness of breath cough. Has similar sputum. No fever no chills. Patient has a hospital bed anomalies propped up closely. Noticed that he is becoming more orthopneic and short of breath. Decided to be brought in. For his other lower external to have been healing well with care given by his and son. Appetite has been okay. 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 Does smoke in the past. No significant alcohol history. Smoked 2 packs a day for 20 years stopped over 20 years ago. Physical examination: VITAL SIGNS: 97.6, 66, 20, 11 6/87, 99% on room air GENERAL: [BMI 75, sitting up in bed tired awake. EYES: Pupils equal. Conjunctiva normal. HEENT: External appearance of nose and ears normal, oral cavity grossly normal. NECK: Short and thick, JVD unable to assess mass not palpable. HEART: Heart sounds are muffled; edema present. LUNGS:[ Respiratory rate increased; diminished breath sounds. ABDOMEN: Soft, nontender, liver spleen not palpable, no masses palpable. PSYCH: Alert and oriented x3; mood and affect normal. NEUROLOGICAL: Cranial nerves grossly intact; no facial asymmetry, power and sensation grossly intact. LYMPHATICS: No lymph nodes palpable in the axilla and neck DERMATOLOGICAL: Dryness of the skin on lower extremity and wounds of both jasmine INVESTIGATIONS, reviewed in the clinical context: White count 7.2 hemoglobin 15.3 potassium 4.5 months 47 crit 1.75 Influenza type A and type B both negative EKG tracing personally reviewed by me-atrial fibrillation rate controlled Chest x-ray film personally reviewed by me-possible infiltrate versus venous prominence Assessment: -Possible acute congestive heart failure exacerbation -Persistent atrial fibrillation -Morbid obesity BMI 75 -Chronic medical debility due to superobesity -Bilateral lower extremity wounds, as the patient to begin improving secondary to venous insufficiency -Essential hypertension -GERD -Diabetes mellitus type 2 -Chronic kidney disease stage III likely combination of diabetic nephropathy and hypertensive nephrosclerosis Plan: Put the patient on Lasix drip for 24 hours. Get a nephrology cardiology consultation. Also have the wound care team look at the patient. Other home medications resumed. Care was discussed with the patient and family the bedside. We'll order 2-D echo. Also order pro calcitonin level. Past Medical History Past Medical History: Atrial Fibrillation, Diabetes Mellitus, GERD/Reflux, Hypertension, Renal Disease, Skin Disorder Additional Past Medical History / Comment(s): Bleed related to coumadin, chronic lymphedema, bilateral lower extremity wounds, history of chronic atrial fibrillation, history of GI bleeding related to Coumadin therapy, chronic lymphedema of the lower extremities, morbid obesity with a BMI of 75, chronic kidney disease stage 3-4, hypertension, diabetes mellitus, history of MRSA and multidrug resistant organism infection including gram-negative infections. Hypothyroidism History of Any Multi-Drug Resistant Organisms: MRSA, Other MDRO Date of last positivie culture/infection: 08/21/17 MRSA MDRO Source:: leg rt Past Surgical History: Orthopedic Surgery Additional Past Surgical History / Comment(s): bilateral feet surgery. per patient had pins in his feet. Past Anesthesia/Blood Transfusion Reactions: No Reported Reaction Past Psychological History: Anxiety Additional Psychological History / Comment(s): . 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 Prior smoking history. No significant alcohol or recreational drug use. No travel. No experience. no animal exposures Smoking Status: Former smoker Past Alcohol Use History: Occasional Additional Past Alcohol Use History / Comment(s): quit smoking about 20 yrs ago; smoked about 2ppd prior for about 20 yrs Past Drug Use History: None Reported - Past Family History Father Family Medical History: Diabetes Mellitus Additional Family Medical History / Comment(s): both legs amputated due to blood clots Mother Additional Family Medical History / Comment(s): lost both of legs, blood clot surgeries, stent in leg, carotid endardectomy Medications and Allergies Home Medications Medication Instructions Recorded Confirmed Type Hydrocodone/Acetaminophen [[place] 1 tab PO Q6H PRN 10/12/16 11/12/19 History 10-325] Pantoprazole Sodium [Protonix] 40 mg PO DAILY #30 tablet. 11/10/16 11/12/19 Rx Allopurinol [Zyloprim] 300 mg PO DAILY 10/21/18 11/12/19 History Ammonium Lactate Lotion 1 applic TOPICAL BID PRN 10/21/18 11/12/19 History [Lac-Hydrin 12% Lotion] Ergocalciferol (Vitamin D2) 50,000 unit PO MO 10/21/18 11/12/19 History [Drisdol] Ferrous Sulfate [Iron (65 MG 325 mg PO BID 10/21/18 11/12/19 History Elemental)] sitaGLIPtin [Januvia] 25 mg PO DAILY 10/21/18 11/12/19 History Nystatin [Nystop] 1 applic TOPICAL BID PRN 02/12/19 11/12/19 History Torsemide [Demadex] 20 mg PO BID #60 tab 02/25/19 11/12/19 Rx Levothyroxine Sodium [Synthroid] 125 mcg PO DAILY 11/12/19 11/12/19 History Methylphenidate HCl 20 mg PO DAILY 11/12/19 11/12/19 History Metoprolol Tartrate [Lopressor] 25 mg PO BID 11/12/19 11/12/19 History Allergies Allergy/AdvReac Type Severity Reaction Status Date / Time warfarin [From Coumadin] AdvReac caused GI Verified 11/12/19 11:12 bleed, affected kidney function wool AdvReac Unknown Verified 11/12/19 11:12 Physical Exam Vitals: Vital Signs Temp Pulse Resp BP Pulse Ox 11/12/19 17:06 98.2 F 106 H 18 140/90 97 11/12/19 17:05 120 H 11/12/19 16:53 113 H 11/12/19 11:37 89 11/12/19 11:16 91 11/12/19 10:19 97.6 F 66 20 116/87 99 Intake and Output 11/12/19 11/12/19 11/12/19 06:59 14:59 22:59 Other: Weight 272.155 kg 272.155 kg Results CBC & Chem 7: 11/12/19 11:24 11/12/19 11:20 Labs: Abnormal Lab Results - Last 24 Hours (Table) 11/12/19 11/12/19 11/12/19 Range/Units 11:20 11:20 11:24 MCHC 29.4 L (31.0-37.0) g/dL RDW 17.2 H (11.5-15.5) % Lymphocytes # 0.6 L (1.0-4.8) k/uL INR 1.2 H (<1.2) BUN 47 H (9-20) mg/dL Creatinine 1.75 H (0.66-1.25) mg/dL Glucose 147 H (74-99) mg/dL Alkaline Phosphatase 229 H (38-126) U/L Albumin 3.4 L (3.5-5.0) g/dL Thrombosis Risk Factor Assmnt - Choose All That Apply Each Factor Represents 1 point: Obesity (BMI >25), Swollen legs (current) Each Risk Factor Represents 2 Points: Patient confined to bed Thrombosis Risk Factor Assessment Total Risk Factor Score: 4 Thrombosis Risk Factor Assessment Level: Moderate Risk
[2019-11-12 20:47] LABS: Glucose,Whole Blood 277 mg/dL (75-99)
[2019-11-12] MEDS ORDERED: FUROSEMIDE 10 MG/ML 4 ML VIAL IV SCH (21:00)
[2019-11-12] MEDS: METOPROLOL TARTRATE 25 MG TAB PO SCH (21:56)
[2019-11-12 22:02] LABS: Glucose,Whole Blood 247 mg/dL (75-99)
[2019-11-12] MEDS: FERROUS SULFATE 325 MG TAB PO SCH (22:15)
[2019-11-12] MEDS: CEFDINIR 300 MG CAP PO SCH (22:15)
[2019-11-12] MEDS: TORSEMIDE 20 MG TAB PO SCH (22:16)
[2019-11-12] MEDS: FUROSEMIDE 100 MG in SODIUM CHLORIDE 0.9% 90 ML IV SCH (22:16)
[2019-11-13] MEDS: LEVOTHYROXINE 125 MCG TAB PO SCH (05:21)
[2019-11-13] MEDS: HYDROcodone/APAP 10-325MG 1 EACH TAB PO PRN ×2 (05:21→20:43)
[2019-11-13] MEDS: METHYLPHENIDATE HCL 10 MG TAB PO SCH (06:04)
[2019-11-13] MEDS: FUROSEMIDE 100 MG in SODIUM CHLORIDE 0.9% 90 ML IV SCH ×2 (06:05→17:38)
[2019-11-13 07:00] LABS: Glucose,Whole Blood 158 mg/dL (75-99)
[2019-11-13 07:30] LABS: Calcium 8.6 mg/dL (8.4-10.2); Potassium 4.4 mmol/L (3.5-5.1)
[2019-11-13] MEDS: IPRATROPIUM-ALBUTEROL 3 ML NEB INHALATION SCH ×4 (07:38→21:49)
[2019-11-13] MEDS: predniSONE 20 MG TAB PO SCH (07:56)
[2019-11-13] MEDS: PANTOPRAZOLE 40 MG TABLET PO SCH (07:56)
[2019-11-13] MEDS: CEFDINIR 300 MG CAP PO SCH ×2 (07:56→20:44)
[2019-11-13] MEDS: LINAGLIPTIN 5 MG TABLET PO SCH (07:56)
[2019-11-13] MEDS: ALLOPURINOL 300 MG TAB PO SCH (07:56)
[2019-11-13] MEDS: METOPROLOL TARTRATE 25 MG TAB PO SCH (07:56)
[2019-11-13] MEDS: FERROUS SULFATE 325 MG TAB PO SCH ×2 (07:56→20:43)
[2019-11-13] MEDS: TORSEMIDE 20 MG TAB PO SCH ×2 (07:57→20:45)
[2019-11-13] MEDS: INSULIN ASPART (NovoLOG) 100 UNIT/ML VIAL SQ SCH ×4 (07:57→20:44)
[2019-11-13 11:33] LABS: Glucose,Whole Blood 150 mg/dL (75-99)
--- NOTE | 2019-11-13 12:37 | CONS ---
CONSULTATION REASON FOR CONSULT: Renal failure. HISTORY OF PRESENT ILLNESS: Patient is a 54-year-old male with history of chronic kidney disease stage 3B with creatinine about 2 in November of 2018 with episodes of acute kidney injury, which patient had recovered from. He is admitted to the hospital with complaints of increased lower extremity edema and increased shortness of breath. Patient has had 2 sessions of dialysis previously for acute kidney injury. Serum creatinine is 1.97 today. Yesterday it was 1.75; however, review of previous labs show serum creatinine about 2.5 to 2.1 mg/dL all the way back to February of 2019. Currently patient is maintained on Lasix drip. He states his swelling is slowly getting better. At home, patient is maintained on Demadex. He denied use of any nonsteroidal anti-inflammatory agents. PAST MEDICAL HISTORY: CKD stage 3, with multiple episodes of acute kidney injury previously, chronic lymphedema, atrial fibrillation, type 2 diabetes, gastroesophageal reflux disease, morbid obesity, hypertension, history of MRSA wound infections, hypothyroidism. PAST SURGICAL HISTORY: Bilateral feet surgery. SOCIAL HISTORY: Patient is a former smoker. No history of drug abuse or alcohol abuse. MEDICATIONS: Medications prior to admission included vitamin D, Januvia, Drisdol, Zyloprim, [place], Synthroid, Lopressor, Protonix, Demadex. ALLERGIES: Allergies include COUMADIN, which causes GI bleed, WOOL. PHYSICAL EXAMINATION: On examination, patient is comfortable, awake. He is not in any acute distress. Blood pressure is 116/81, heart rate 90 per minute, patient is afebrile. EXAMINATION OF THE HEART: S1 and S2. EXAMINATION OF THE LUNGS: Bilateral breath sounds are heard. ABDOMEN: Soft, nontender. Examination of lower extremities shows chronic skin changes with chronic lower extremity edema. NURSE HEALTHCARE MANAGER exam is grossly intact. LABS: Labs show sodium 138, potassium 4.4, chloride 99, BUN 48, creatinine 1.97. ASSESSMENT: 1. Chronic kidney disease stage 3, with renal function not far from previous hospitalization in February of 2019 currently maintained on Lasix drip which we can continue for severe volume overload. The ejection fraction was not easily detected on an echocardiogram done in April of 2019 secondary to size. 2. Volume overload. Continue with Lasix drip. 3. Persistent atrial fibrillation. 4. Bilateral lower extremity chronic wounds. 5. Type 2 diabetes. PLAN: Continue with Lasix drip. Repeat labs in a.m. avoid nephrotoxic agents. Check urinalysis. Thank you for this consultation. We will continue to follow the patient with you during his hospitalization. KAYY / ALANA: [id number] /
--- NOTE | 2019-11-13 13:53 | P.CRDCN ---
History of Present Illness History of present illness: HISTORY OF PRESENTING ILLNESS This is a pleasant 54-year-old male past medical history significant for chronic atrial fibrillation on long-term anticoagulation, diabetes mellitus, hypertension, history of GI bleed, chronic lymphedema and morbid obesity. 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 We have been asked to see in consultation for abnormal EKG. He presented to the hospital with symptoms of cough and shortness of breath. He is seen and examined sitting up in bed in no acute distress. He continues to feel short of breath at rest. He has no chest pain, dizziness or palpitations. He has been started on a lasix infusion per primary care team. No documented output. DIAGNOSTICS EKG reveals atrial fibrillation with controlled ventricular response with non- specific ST abnormalities and T-wave abnormalities. He also had an episode of a- fib RVR last night with rates up to 160. Additional lopressor given and rates normalized. Chest xray blunted costophrenic angle on the left, basilar increased density on the right, central vascularity is prominent. Laboratory reviewed, WBC 7.2, hemoglobin 15.3, platelets 256, sodium 138, potassium 4.4, creatinine on admission 1.7 5 repeat today 1.97 with a GFR 37, cardiac enzymes negative 1, alkaline phosphatase 229 and NT proBNP 1370. Current cardiac medications include Lopressor 25 mg twice a day and Demadex 20 mg twice a day. REVIEW OF SYSTEMS At the time of my exam: CONSTITUTIONAL: Denies fever or chills. CARDIOVASCULAR: Complains of shortness of breath and orthopnea. Denies chest pain, PND or palpitations. RESPIRATORY: Denies cough. GASTROINTESTINAL: Denies abdominal pain, diarrhea, constipation, nausea or vomiting. MUSCULOSKELETAL: Denies myalgias. NEUROLOGIC: Denies numbness, tingling or weakness. ENDOCRINE: Denies fatigue, weight change, polydipsia or polyurina. GENITOURINARY: Denies burning, hematuria or urgency with micturation. HEMATOLOGIC: Denies history of anemia or bleeding. PHYSICAL EXAMINATION Blood pressure and 116/81 heart rate 76 afebrile and mild hypoxia on nasal cannula. CONSTITUTIONAL: No apparent distress. Morbidly obese. HEENT: Head is normocephalic. Pupils are equal, round. Sclerae anicteric. Mucous membranes of the mouth are moist. No JVD. No carotid bruit. CHEST EXAMINATION: Lungs are clear to auscultation. No chest wall tenderness is noted on palpation or with deep breathing. Diminished bilaterally and difficult to auscultate secondary to body habitus. HEART EXAMINATION: Irregular rate and rhythm. S1, S2 heard. No murmurs, gallops or rub. ABDOMEN: Soft, nontender. Positive bowel sounds. EXTREMITIES: Positive peripheral pulses, significant bilateral lower extremity edema and erthythema. No calf tenderness. NEUROLOGIC EXAMINATION: Patient is awake, alert and oriented x3. ASSESSMENT Chronic persistent atrial fibrillation not on correction anti-coagulation secondary to history of coagulopathy and GI bleed Volume overload secondary to renal failure Acute on chronic renal failure Hypertension Diabetes mellitus Chronic lymphedema Morbid obesity, BMI 75 PLAN Recommend correction anti-coagulation for thrombembolic protection, this can be a decided by the primary care team given his history of GI bleed in the past. Initiate atorvastatin 40 mg daily secondary to history of diabetes mellitus. Mcknight catheter required to accurately assess diuresis and lasix infusion. Follow renal function and electrolytes in the morning. Thank you kindly for this consultation. Nurse Practitioner note has been reviewed, I agree with a documented findings an d plan of care. Patient was seen and examined. Past Medical History Past Medical History: Atrial Fibrillation, Diabetes Mellitus, GERD/Reflux, Hypertension, Renal Disease, Skin Disorder Additional Past Medical History / Comment(s): Bleed related to coumadin, chronic lymphedema, bilateral lower extremity wounds, history of chronic atrial fibrillation, history of GI bleeding related to Coumadin therapy, chronic lymphedema of the lower extremities, morbid obesity with a BMI of 75, chronic kidney disease stage 3-4, hypertension, diabetes mellitus, history of MRSA and multidrug resistant organism infection including gram-negative infections. Hypothyroidism History of Any Multi-Drug Resistant Organisms: MRSA, Other MDRO Date of last positivie culture/infection: 08/21/17 MRSA MDRO Source:: leg rt Past Surgical History: Orthopedic Surgery Additional Past Surgical History / Comment(s): bilateral feet surgery. per patient had pins in his feet. Past Anesthesia/Blood Transfusion Reactions: No Reported Reaction Past Psychological History: Anxiety Additional Psychological History / Comment(s): . 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 Prior smoking history. No significant alcohol or recreational drug use. No travel. No experience. no animal exposures Smoking Status: Former smoker Past Alcohol Use History: Occasional Additional Past Alcohol Use History / Comment(s): quit smoking about 20 yrs ago; smoked about 2ppd prior for about 20 yrs Past Drug Use History: None Reported - Past Family History Father Family Medical History: Diabetes Mellitus Additional Family Medical History / Comment(s): both legs amputated due to blood clots Mother Additional Family Medical History / Comment(s): lost both of legs, blood clot surgeries, stent in leg, carotid endardectomy Medications and Allergies Home Medications Medication Instructions Recorded Confirmed Type Hydrocodone/Acetaminophen [[place] 1 tab PO Q6H PRN 10/12/16 11/12/19 History 10-325] Pantoprazole Sodium [Protonix] 40 mg PO DAILY #30 tablet. 11/10/16 11/12/19 Rx Allopurinol [Zyloprim] 300 mg PO DAILY 10/21/18 11/12/19 History Ammonium Lactate Lotion 1 applic TOPICAL BID PRN 10/21/18 11/12/19 History [Lac-Hydrin 12% Lotion] Ergocalciferol (Vitamin D2) 50,000 unit PO MO 10/21/18 11/12/19 History [Drisdol] Ferrous Sulfate [Iron (65 MG 325 mg PO BID 10/21/18 11/12/19 History Elemental)] sitaGLIPtin [Januvia] 25 mg PO DAILY 10/21/18 11/12/19 History Nystatin [Nystop] 1 applic TOPICAL BID PRN 02/12/19 11/12/19 History Torsemide [Demadex] 20 mg PO BID #60 tab 02/25/19 11/12/19 Rx Levothyroxine Sodium [Synthroid] 125 mcg PO DAILY 11/12/19 11/12/19 History Methylphenidate HCl 20 mg PO DAILY 11/12/19 11/12/19 History Metoprolol Tartrate [Lopressor] 25 mg PO BID 11/12/19 11/12/19 History Allergies Allergy/AdvReac Type Severity Reaction Status Date / Time warfarin [From Coumadin] AdvReac caused GI Verified 11/12/19 11:12 bleed, affected kidney function wool AdvReac Unknown Verified 11/12/19 11:12 Physical Exam Vitals: Vital Signs Temp Pulse Pulse Pulse Pulse Resp BP 11/13/19 11:22 76 11/13/19 11:07 80 11/13/19 07:53 93 11/13/19 07:38 90 11/13/19 07:00 97.6 F 98 18 11/13/19 02:40 103 H 11/13/19 02:38 112 H 19 11/13/19 01:55 97.4 F L 100 16 11/13/19 00:00 116 H 18 11/12/19 21:29 100 18 11/12/19 21:18 111 H 20 11/12/19 20:00 120 H 18 11/12/19 19:36 97.6 F 86 16 11/12/19 17:06 98.2 F 106 H 18 140/90 11/12/19 17:05 120 H 11/12/19 16:53 113 H BP Pulse Ox 11/13/19 11:22 11/13/19 11:07 11/13/19 07:53 11/13/19 07:38 89 L 11/13/19 07:00 116/81 92 L 11/13/19 02:40 11/13/19 02:38 144/87 93 L 11/13/19 01:55 109/74 90 L 11/13/19 00:00 11/12/19 21:29 11/12/19 21:18 11/12/19 20:00 11/12/19 19:36 117/70 88 L 11/12/19 17:06 97 11/12/19 17:05 11/12/19 16:53 Intake and Output 11/12/19 11/13/19 11/13/19 22:59 06:59 14:59 Intake Total 558.167 Balance 558.167 Intake: Intake, IV Titration 158.167 Amount Furosemide 100 mg In 158.167 Sodium Chloride 0.9% 90 ml @ 10 MG/HR 10 mls/hr IV .Q10H [facility] Rx#: [id number] Oral 400 Other: Voiding Method Diaper Diaper Incontinent Incontinent # Voids 1 3 Weight 272.155 kg Results 11/12/19 11:24 11/13/19 06:43 Comprehensive Metabolic Panel 11/13/19 Range/Units 06:43 Sodium 138 (137-145) mmol/L Potassium 4.4 (3.5-5.1) mmol/L Chloride 99 (98-107) mmol/L Carbon Dioxide 29 (22-30) mmol/L BUN 48 H (9-20) mg/dL Creatinine 1.97 H (0.66-1.25) mg/dL Glucose 176 H (74-99) mg/dL Calcium 8.6 (8.4-10.2) mg/dL Current Medications Generic Name Dose Route Start Last Admin Trade Name Freq PRN Reason Stop Dose Admin Hydrocodone Bitart/Acetaminophen 1 each 11/12/19 16:59 11/13/19 05:21 [place] 10 PO 1 each Q6H PRN Administration Pain Albuterol/Ipratropium 3 ml 11/12/19 12:26 Duoneb 0.5 Mg-3 Mg/3 Ml Soln INHALATION RT-Q4H PRN Shortness Of Breath Or Wheezing Albuterol/Ipratropium 3 ml 11/12/19 16:00 11/13/19 11:06 Duoneb 0.5 Mg-3 Mg/3 Ml Soln INHALATION 3 ml RT-QID [facility] Administration Allopurinol 300 mg 11/13/19 09:00 11/13/19 07:56 Zyloprim PO 300 mg DAILY [facility] Administration Cefdinir 300 mg 11/12/19 21:00 11/13/19 07:56 Omnicef PO 300 mg BID [facility] Administration Ergocalciferol 50,000 unit 11/17/19 09:00 Vitamin D2 PO MO [facility] Ferrous Sulfate 325 mg 11/12/19 21:00 11/13/19 07:56 Feosol PO 325 mg BID [facility] Administration Furosemide 100 mg/ Sodium 100 mls @ 10 mls/hr 11/12/19 21:30 11/13/19 06:05 Chloride IV 10 mg/hr .Q10H [facility] 10 mls/hr Administration 10 MG/HR Insulin Aspart 0 unit 11/12/19 17:30 11/13/19 12:58 Novolog SQ Not Given ACHS [facility] Protocol Lactic Acid 1 applic 11/12/19 16:59 Lac-Hydrin 12% TOPICAL BID PRN Skin Irritation Levothyroxine Sodium 125 mcg 11/13/19 06:30 11/13/19 05:21 Synthroid PO 125 mcg 0630 [facility] Administration Linagliptin 5 mg 11/13/19 09:00 11/13/19 07:56 Tradjenta PO 5 mg DAILY [facility] Administration Methylphenidate HCl 20 mg 11/13/19 09:00 11/13/19 06:04 Ritalin PO 20 mg DAILY [facility] Administration Metoprolol Tartrate 25 mg 11/12/19 21:00 11/13/19 07:56 Lopressor PO 25 mg BID [facility] Administration Nystatin 1 applic 11/12/19 16:59 Mycostatin Powder TOPICAL BID PRN Skin Irritation Pantoprazole Sodium 40 mg 11/13/19 09:00 11/13/19 07:56 Protonix PO 40 mg DAILY [facility] Administration Prednisone 40 mg 11/13/19 09:00 11/13/19 07:56 PO 40 mg DAILY [facility] Administration Torsemide 20 mg 11/12/19 21:00 11/13/19 07:57 Demadex PO 20 mg BID [facility] Administration Intake and Output 11/12/19 11/13/19 11/13/19 22:59 06:59 14:59 Intake Total 558.167 Balance 558.167 Intake: Intake, IV Titration 158.167 Amount Furosemide 100 mg In 158.167 Sodium Chloride 0.9% 90 ml @ 10 MG/HR 10 mls/hr IV .Q10H [facility] Rx#: [id number] Oral 400 Other: Voiding Method Diaper Diaper Incontinent Incontinent # Voids 1 3 Weight 272.155 kg 11/12/19 11:24 11/13/19 06:43
[2019-11-13 14:16] LABS: Hemoglobin A1C 6.5 % (4.0-6.0)
[2019-11-13 16:35] LABS: Glucose,Whole Blood 149 mg/dL (75-99)
--- NOTE | 2019-11-13 16:35 | P.PN ---
Progress Note - Text Progress Note Date: 11/13/19 Chief Complaint: Short of breath History of presenting complaint: This is a pleasant 54-year-old patient of visiting physician Dr. Yuri Atwood. Patient was here in January of last year but extended hospital stay. Patient was then admitted with severe cellulitis with multiple organisms including both lower extremities groin scrotal area and wants. He then also had septic shock. Also had a UTI. Chronic stable medical conditions include chronic medical debility, diabetes, GERD, hypertension, chronic kidney disease diabetic nephropathy, bilateral chronic lower extremity wounds which is cared for by son and hypothyroidism atrial fibrillation. Patient for 2 days now presents with increasing shortness of breath cough. Has similar sputum. No fever no chills. Patient has a hospital bed anomalies propped up closely. Noticed that he is becoming more orthopneic and short of breath. Decided to be brought in. For his other lower external to have been healing well with care given by his and son. Appetite has been okay. Admitted with CHF exacerbation. Started on IV Lasix drip. Today-. Remains on IV Lasix drip. Feeling better. I's and O's not well documented. Eating better. Review of systems: Was done for constitutional, cardiovascular, GI, pulmonary. relevant finding as above Active Medications Hydrocodone Bitart/Acetaminophen ([place] 10) 1 each PO Q6H PRN PRN Reason: Pain Last Admin: 11/13/19 05:21 Dose: 1 each Documented by: Albuterol/Ipratropium (Duoneb 0.5 Mg-3 Mg/3 Ml Soln) 3 ml INHALATION RT-Q4H PRN PRN Reason: Shortness Of Breath Or Wheezing Albuterol/Ipratropium (Duoneb 0.5 Mg-3 Mg/3 Ml Soln) 3 ml INHALATION RT-QID [facility] Last Admin: 11/13/19 11:06 Dose: 3 ml Documented by: Allopurinol (Zyloprim) 300 mg PO DAILY [facility] Last Admin: 11/13/19 07:56 Dose: 300 mg Documented by: Atorvastatin Calcium (Lipitor) 40 mg PO HS [facility] Cefdinir (Omnicef) 300 mg PO BID [facility] Last Admin: 11/13/19 07:56 Dose: 300 mg Documented by: Ergocalciferol (Vitamin D2) 50,000 unit PO MO [facility] Ferrous Sulfate (Feosol) 325 mg PO BID [facility] Last Admin: 11/13/19 07:56 Dose: 325 mg Documented by: Furosemide 100 mg/ Sodium (Chloride) 100 mls @ 10 mls/hr IV .Q10H [facility] Last Admin: 11/13/19 06:05 Dose: 10 mg/hr, 10 mls/hr Documented by: Insulin Aspart (Novolog) 0 unit SQ ACHS [facility]; Protocol Last Admin: 11/13/19 12:58 Dose: Not Given Documented by: Lactic Acid (Lac-Hydrin 12%) 1 applic TOPICAL BID PRN PRN Reason: Skin Irritation Levothyroxine Sodium (Synthroid) 125 mcg PO 0630 [facility] Last Admin: 11/13/19 05:21 Dose: 125 mcg Documented by: Linagliptin (Tradjenta) 5 mg PO DAILY [facility] Last Admin: 11/13/19 07:56 Dose: 5 mg Documented by: Methylphenidate HCl (Ritalin) 20 mg PO DAILY [facility] Last Admin: 11/13/19 06:04 Dose: 20 mg Documented by: Metoprolol Tartrate (Lopressor) 50 mg PO BID [facility] Nystatin (Mycostatin Powder) 1 applic TOPICAL BID PRN PRN Reason: Skin Irritation Pantoprazole Sodium (Protonix) 40 mg PO DAILY [facility] Last Admin: 11/13/19 07:56 Dose: 40 mg Documented by: Prednisone () 40 mg PO DAILY [facility] Last Admin: 11/13/19 07:56 Dose: 40 mg Documented by: Torsemide (Demadex) 20 mg PO BID [facility] Last Admin: 11/13/19 07:57 Dose: 20 mg Documented by: Physical examination: VITAL SIGNS: 97.4, 93, 18, 143/93, 92% on room air GENERAL: Sitting up in bed, feeling better. EYES: Pupils equal. Conjunctiva normal. HEENT: External appearance of nose and ears normal, oral cavity grossly normal. NECK: Short and thick, JVD unable to assess mass not palpable. HEART: Heart sounds are muffled; edema present. LUNGS:[ Respiratory rate increased; diminished breath sounds. ABDOMEN: Soft, nontender, liver spleen not palpable, no masses palpable. PSYCH: Alert and oriented x3; mood and affect normal. DERMATOLOGICAL: Dryness of the skin on lower extremity and wounds of both jasmine INVESTIGATIONS, reviewed in the clinical context: Potassium 4.4 bun 48 creatinine 197 Previous testing White count 7.2 hemoglobin 15.3 potassium 4.5 months 47 crit 1.75 Influenza type A and type B both negative EKG tracing personally reviewed by me-atrial fibrillation rate controlled Chest x-ray film personally reviewed by me-possible infiltrate versus venous prominence Pro calcitonin 1.10 Assessment: - acute congestive heart failure exacerbation, EF not known, slow to respond -Persistent atrial fibrillation -Acute tracheal bronchitis -Morbid obesity BMI 75 -Chronic medical debility due to superobesity -Bilateral lower extremity wounds, as the patient to begin improving secondary to venous insufficiency -Essential hypertension -GERD -Diabetes mellitus type 2 -Chronic kidney disease stage III likely combination of diabetic nephropathy and hypertensive nephrosclerosis Plan: Continue with Lasix drip. Follow electrolytes. Continue with Omnicef. Patient very keen to go home. We'll give another 24 hours. On IV Lasix drip.
--- NOTE | 2019-11-13 20:00 | ECHOF ---
Referral Reason:CHF MEASUREMENTS -------- HEIGHT: 182.9 cm WEIGHT: 272.2 kg BP: 144/87 IVSd: 1.5 cm (0.6 - 1.1) LVIDd: 5.1 cm (3.9 - 5.3) LVPWd: 1.6 cm (0.6 - 1.1) IVSs: 2.0 cm LVIDs: 3.3 cm LVPWs: 1.9 cm RVIDd: 3.7 cm (< 3.3) Ao Diam: 3.6 cm (2.0 - 3.7) EPSS: 1.0 cm RAP: 5.00 mmHg RVSP: 36.89 mmHg MV EF SLOPE: 169.26 mm/s (70 - 150) MV EXCURSION: 24.99 mm (> 18.000) FINDINGS -------- Sinus rhythm. Morbid Obesity LV size, wall thickness and systolic function are normal, with an EF greater than 55%. The right ventricle is moderately enlarged. The left atrial size is normal. The right atrial size is normal. 5.0mg OF Lumason UTLIZED: 2 OR MORE WALL SEGMENTS NOT VISUALIZED. The aortic valve was not well visualized. The mitral valve was not well visualized. Mild tricuspid regurgitation present. Right ventricular systolic pressure is normal at < 35 mmHg. There is no evidence of pulmonary hypertension. The pulmonic valve was not well visualized. The aortic root size is normal. There is no pericardial effusion. CONCLUSIONS -------- 1. Sinus rhythm. 2. Morbid Obesity 3. LV size, wall thickness and systolic function are normal, with an EF greater than 55%. 4. The right ventricle is moderately enlarged. 5. The left atrial size is normal. 6. The right atrial size is normal. 7. 5.0mg OF Lumason UTLIZED: 2 OR MORE WALL SEGMENTS NOT VISUALIZED. 8. The aortic valve was not well visualized. 9. The mitral valve was not well visualized. 10. Mild tricuspid regurgitation present. 11. Right ventricular systolic pressure is normal at < 35 mmHg. 12. There is no evidence of pulmonary hypertension. 13. The pulmonic valve was not well visualized. 14. The aortic root size is normal. 15. There is no pericardial effusion. DOUGHNUT MACHINE OPERATOR: Melissa Orr RDCS
[2019-11-13 20:31] LABS: Glucose,Whole Blood 176 mg/dL (75-99)
[2019-11-13] MEDS: ATORVASTATIN 40 MG TAB PO SCH (20:43)
[2019-11-13] MEDS: METOPROLOL TARTRATE 50 MG TAB PO SCH (20:44)
[2019-11-13] MEDS ORDERED: DILTIAZEM DRIP BOLUS FROM BAG 1 MG SOLN IV ONE (22:18)
[2019-11-13] MEDS ORDERED: DILTIAZEM 125 MG in SODIUM CHLORIDE 0.9% 100 ML IV SCH (22:30)
[2019-11-14] MEDS: FUROSEMIDE 100 MG in SODIUM CHLORIDE 0.9% 90 ML IV SCH ×2 (02:58→12:02)
[2019-11-14 06:06] LABS: Glucose,Whole Blood 145 mg/dL (75-99)
[2019-11-14] MEDS: INSULIN ASPART (NovoLOG) 100 UNIT/ML VIAL SQ SCH ×4 (06:18→20:54)
[2019-11-14] MEDS: LEVOTHYROXINE 125 MCG TAB PO SCH (06:18)
[2019-11-14] MEDS: HYDROcodone/APAP 10-325MG 1 EACH TAB PO PRN ×3 (06:21→20:51)
[2019-11-14 06:41] LABS: Calcium 8.7 mg/dL (8.4-10.2); Potassium 4.5 mmol/L (3.5-5.1)
[2019-11-14] MEDS: IPRATROPIUM-ALBUTEROL 3 ML NEB INHALATION SCH ×4 (07:33→20:11)
[2019-11-14] MEDS: predniSONE 20 MG TAB PO SCH (09:13)
[2019-11-14] MEDS: ALLOPURINOL 300 MG TAB PO SCH (09:14)
[2019-11-14] MEDS: METHYLPHENIDATE HCL 10 MG TAB PO SCH ×2 (09:14→09:21)
[2019-11-14] MEDS: METOPROLOL TARTRATE 50 MG TAB PO SCH ×3 (09:14→21:59)
[2019-11-14] MEDS: CEFDINIR 300 MG CAP PO SCH ×2 (09:14→20:51)
[2019-11-14] MEDS: PANTOPRAZOLE 40 MG TABLET PO SCH (09:14)
[2019-11-14] MEDS: LINAGLIPTIN 5 MG TABLET PO SCH (09:14)
[2019-11-14] MEDS: FERROUS SULFATE 325 MG TAB PO SCH ×2 (09:14→20:51)
--- NOTE | 2019-11-14 10:10 | P.CONS ---
History of Present Illness - Reason for Consult Consult date: 11/14/19 Wound care - History of Present Illness This is a 54-year-old pleasant male being seen on 3 for wound care. Patient is known to the wound care center. Patient states that he has no open wounds. He does have lymphedema drainage in his right groin area however he has a pad for. At this time patient states that all of his ulcerations are healed and he has dressings and supplies at home from previous admission to the wound care center. Patient declines any further treatment at this time. Patient has past medical history significant for atrial fibrillation, diabetes mellitus, acid reflux, hypertension, stage III for chronic kidney disease, hypothyroidism and lymphedema Review of Systems Review Of Systems: Constitutional: No fever, no chills, no night sweats. No weight change. No weakness, fatigue or lethargy. No daytime sleepiness. Integumentary:reports wounds, no lesions. No rash or pruritus. No unusual bruising. No change in hair or nails. Past Medical History Past Medical History: Atrial Fibrillation, Diabetes Mellitus, GERD/Reflux, Hypertension, Renal Disease, Skin Disorder Additional Past Medical History / Comment(s): Bleed related to coumadin, chronic lymphedema, bilateral lower extremity wounds, history of chronic atrial fibrillation, history of GI bleeding related to Coumadin therapy, chronic lymphedema of the lower extremities, morbid obesity with a BMI of 75, chronic kidney disease stage 3-4, hypertension, diabetes mellitus, history of MRSA and multidrug resistant organism infection including gram-negative infections. Hypothyroidism History of Any Multi-Drug Resistant Organisms: MRSA, Other MDRO Year Discovered:: 08/21/17 MRSA MDRO Source:: leg rt Past Surgical History: Orthopedic Surgery Additional Past Surgical History / Comment(s): bilateral feet surgery. per patient had pins in his feet. Past Anesthesia/Blood Transfusion Reactions: No Reported Reaction Past Psychological History: Anxiety Additional Psychological History / Comment(s): . 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 Prior smoking history. No significant alcohol or recreational drug use. No travel. No experience. no animal exposures Smoking Status: Former smoker Past Alcohol Use History: Occasional Additional Past Alcohol Use History / Comment(s): quit smoking about 20 yrs ago; smoked about 2ppd prior for about 20 yrs Past Drug Use History: None Reported - Past Family History Father Family Medical History: Diabetes Mellitus Additional Family Medical History / Comment(s): both legs amputated due to blood clots Mother Additional Family Medical History / Comment(s): lost both of legs, blood clot surgeries, stent in leg, carotid endardectomy Medications and Allergies Home Medications Medication Instructions Recorded Confirmed Type Hydrocodone/Acetaminophen [[place] 1 tab PO Q6H PRN 10/12/16 11/12/19 History 10-325] Pantoprazole Sodium [Protonix] 40 mg PO DAILY #30 tablet. 11/10/16 11/12/19 Rx Allopurinol [Zyloprim] 300 mg PO DAILY 10/21/18 11/12/19 History Ammonium Lactate Lotion 1 applic TOPICAL BID PRN 10/21/18 11/12/19 History [Lac-Hydrin 12% Lotion] Ergocalciferol (Vitamin D2) 50,000 unit PO MO 10/21/18 11/12/19 History [Drisdol] Ferrous Sulfate [Iron (65 MG 325 mg PO BID 10/21/18 11/12/19 History Elemental)] sitaGLIPtin [Januvia] 25 mg PO DAILY 10/21/18 11/12/19 History Nystatin [Nystop] 1 applic TOPICAL BID PRN 02/12/19 11/12/19 History Torsemide [Demadex] 20 mg PO BID #60 tab 02/25/19 11/12/19 Rx Levothyroxine Sodium [Synthroid] 125 mcg PO DAILY 11/12/19 11/12/19 History Methylphenidate HCl 20 mg PO DAILY 11/12/19 11/12/19 History Metoprolol Tartrate [Lopressor] 25 mg PO BID 11/12/19 11/12/19 History Allergies Allergy/AdvReac Type Severity Reaction Status Date / Time warfarin [From Coumadin] AdvReac caused GI Verified 11/12/19 11:12 bleed, affected kidney function wool AdvReac Unknown Verified 11/12/19 11:12 Physical Exam Vitals: Vital Signs Temp Pulse Pulse Resp BP BP Pulse Ox 11/14/19 08:00 97.5 F L 89 22 126/76 91 L 11/14/19 04:00 86 20 129/83 94 L 11/14/19 00:00 97.0 F L 88 20 125/83 92 L 11/13/19 22:35 98.9 F 150 H 20 121/79 93 L 11/13/19 22:31 18 11/13/19 21:49 72 11/13/19 19:39 98.4 F 109 H 18 127/83 93 L 11/13/19 17:07 90 11/13/19 16:54 90 94 L 11/13/19 15:00 97.4 F L 93 18 143/93 92 L 11/13/19 11:22 76 11/13/19 11:07 80 Intake and Output 11/13/19 11/14/19 11/14/19 22:59 06:59 14:59 Intake Total 100 93.333 Balance 100 93.333 Intake: Intake, IV Titration 100 93.333 Amount Furosemide 100 mg In 100 93.333 Sodium Chloride 0.9% 90 ml @ 10 MG/HR 10 mls/hr IV .Q10H [facility] Rx#: [id number] Other: Voiding Method Diaper Diaper Diaper Incontinent Incontinent Incontinent # Voids 1 5 Weight 269.6 kg Physical exam: General Appearance: Alert, cooperative, no distress, appears stated age. Skin: See HPI all other Skin color, texture, tugor normal, no rashes or lesions. Neurologic: Alert oriented x3 Results CBC & Chem 7: 11/12/19 11:24 11/14/19 05:36 Labs: Abnormal Lab Results - Last 24 Hours (Table) 11/13/19 11/13/19 11/13/19 Range/Units 06:43 06:43 11:32 Chloride (98-107) mmol/L Carbon Dioxide (22-30) mmol/L BUN (9-20) mg/dL Creatinine (0.66-1.25) mg/dL Glucose (74-99) mg/dL POC Glucose (mg/dL) 150 H (75-99) mg/dL Hemoglobin A1c 6.5 H (4.0-6.0) % Procalcitonin 1.10 H (0.02-0.09) ng/mL 11/13/19 11/13/19 11/14/19 Range/Units 16:34 20:26 05:36 Chloride 96 L (98-107) mmol/L Carbon Dioxide 35 H (22-30) mmol/L BUN 60 H (9-20) mg/dL Creatinine 2.37 H (0.66-1.25) mg/dL Glucose 148 H (74-99) mg/dL POC Glucose (mg/dL) 149 H 176 H (75-99) mg/dL Hemoglobin A1c (4.0-6.0) % Procalcitonin (0.02-0.09) ng/mL 11/14/19 Range/Units 06:05 Chloride (98-107) mmol/L Carbon Dioxide (22-30) mmol/L BUN (9-20) mg/dL Creatinine (0.66-1.25) mg/dL Glucose (74-99) mg/dL POC Glucose (mg/dL) 145 H (75-99) mg/dL Hemoglobin A1c (4.0-6.0) % Procalcitonin (0.02-0.09) ng/mL Microbiology - Last 24 Hours (Table) 11/12/19 11:20 Blood Culture - Preliminary Blood No Growth after 24 hours Assessment and Plan (1) Lymphedema of both lower extremities Current Visit: No Status: Acute Code(s): I89.0 - LYMPHEDEMA, NOT ELSEWHERE CLASSIFIED SNOMED Code(s): 74809287228730071 (2) Morbid obesity Current Visit: No Status: Acute Code(s): E66.01 - MORBID (SEVERE) OBESITY DUE TO EXCESS CALORIES SNOMED Code(s): 329225972 Plan: At this time patient states he has no open lesions all areas have healed. Patient states that he has product at home from previous admissions to the wound care center. Patient verbalizes understanding that if ulcerations or open he can return to the wound care center for further treatment. Discussed with patient to utilize bag balm or equivalent to dry areas on bilateral lower extremities to protect the skin. Patient verbalized understanding Thank you kindly for the consultation. Any questions please contact the wound care center DNP note has been reviewed and discussed with Dr. Perez and the impression and plan of care has been directed as dictated.
[2019-11-14] MEDS: TORSEMIDE 20 MG TAB PO SCH ×2 (11:00→20:54)
[2019-11-14 11:08] VITALS: BMI 74.2
[2019-11-14 11:34] LABS: Glucose,Whole Blood 127 mg/dL (75-99)
--- NOTE | 2019-11-14 12:17 | P.PN ---
Progress Note - Text Progress Note Date: 11/14/19 Chief Complaint: Short of breath History of presenting complaint: This is a pleasant 54-year-old patient of visiting physician Dr. Yuri Atwood. Patient was here in January of last year but extended hospital stay. Patient was then admitted with severe cellulitis with multiple organisms including both lower extremities groin scrotal area and wants. He then also had septic shock. Also had a UTI. Chronic stable medical conditions include chronic medical debility, diabetes, GERD, hypertension, chronic kidney disease diabetic nephropathy, bilateral chronic lower extremity wounds which is cared for by son and hypothyroidism atrial fibrillation. Patient for 2 days now presents with increasing shortness of breath cough. Has similar sputum. No fever no chills. Patient has a hospital bed anomalies propped up closely. Noticed that he is becoming more orthopneic and short of breath. Decided to be brought in. For his other lower external to have been healing well with care given by his and son. Appetite has been okay. Admitted with CHF exacerbation. Started on IV Lasix drip. Today-. Remains on IV Lasix drip. Diuresing well. Unable to monitor AMBIKA because uses pads. Breathing continues to improve. Very keen to go go home. Review of systems: Was done for constitutional, cardiovascular, GI, pulmonary. relevant finding as above Active Medications Hydrocodone Bitart/Acetaminophen ([place] 10) 1 each PO Q6H PRN PRN Reason: Pain Last Admin: 11/14/19 06:21 Dose: 1 each Documented by: Albuterol/Ipratropium (Duoneb 0.5 Mg-3 Mg/3 Ml Soln) 3 ml INHALATION RT-Q4H PRN PRN Reason: Shortness Of Breath Or Wheezing Albuterol/Ipratropium (Duoneb 0.5 Mg-3 Mg/3 Ml Soln) 3 ml INHALATION RT-QID [facility] Last Admin: 11/14/19 11:34 Dose: 3 ml Documented by: Allopurinol (Zyloprim) 300 mg PO DAILY [facility] Last Admin: 11/14/19 09:14 Dose: 300 mg Documented by: Atorvastatin Calcium (Lipitor) 40 mg PO HS [facility] Last Admin: 11/13/19 20:43 Dose: 40 mg Documented by: Cefdinir (Omnicef) 300 mg PO BID [facility] Last Admin: 11/14/19 09:14 Dose: 300 mg Documented by: Ergocalciferol (Vitamin D2) 50,000 unit PO MO [facility] Ferrous Sulfate (Feosol) 325 mg PO BID [facility] Last Admin: 11/14/19 09:14 Dose: 325 mg Documented by: Furosemide 100 mg/ Sodium (Chloride) 100 mls @ 10 mls/hr IV .Q10H [facility] Last Admin: 11/14/19 12:02 Dose: 10 mg/hr, 10 mls/hr Documented by: Insulin Aspart (Novolog) 0 unit SQ ACHS [facility]; Protocol Last Admin: 11/14/19 11:59 Dose: Not Given Documented by: Lactic Acid (Lac-Hydrin 12%) 1 applic TOPICAL BID PRN PRN Reason: Skin Irritation Levothyroxine Sodium (Synthroid) 125 mcg PO 0630 [facility] Last Admin: 11/14/19 06:18 Dose: 125 mcg Documented by: Linagliptin (Tradjenta) 5 mg PO DAILY [facility] Last Admin: 11/14/19 09:14 Dose: 5 mg Documented by: Methylphenidate HCl (Ritalin) 20 mg PO DAILY [facility] Last Admin: 11/14/19 09:21 Dose: Not Given Documented by: Metoprolol Tartrate (Lopressor) 50 mg PO TID [facility] Nystatin (Mycostatin Powder) 1 applic TOPICAL BID PRN PRN Reason: Skin Irritation Pantoprazole Sodium (Protonix) 40 mg PO DAILY [facility] Last Admin: 11/14/19 09:14 Dose: 40 mg Documented by: Prednisone () 40 mg PO DAILY [facility] Last Admin: 11/14/19 09:13 Dose: 40 mg Documented by: Torsemide (Demadex) 20 mg PO BID [facility] Last Admin: 11/14/19 11:00 Dose: 20 mg Documented by: Physical examination: VITAL SIGNS: 97.6, 74, 20, 123/82, GENERAL: Sitting up in bed, awake. EYES: Pupils equal. Conjunctiva normal. HEENT: External appearance of nose and ears normal, oral cavity grossly normal. NECK: Short and thick, JVD unable to assess mass not palpable. HEART: Heart sounds are muffled; edema present. LUNGS:[ Respiratory rate increased; diminished breath sounds. ABDOMEN: Soft, nontender, liver spleen not palpable, no masses palpable. PSYCH: Alert and oriented x3; mood and affect normal. DERMATOLOGICAL: Dryness of the skin on lower extremity and superficial wounds of both jasmine INVESTIGATIONS, reviewed in the clinical context: Potassium 4.5 160 creatinine 2.37 Previous testing White count 7.2 hemoglobin 15.3 potassium 4.5 months 47 crit 1.75 Influenza type A and type B both negative EKG tracing personally reviewed by me-atrial fibrillation rate controlled Chest x-ray film personally reviewed by me-possible infiltrate versus venous prominence Pro calcitonin 1.10 Assessment: - acute congestive heart failure exacerbation, EF not known, improved -Acute kidney injury, prerenal from diuresis -Persistent atrial fibrillation -Acute tracheal bronchitis -Morbid obesity BMI 75 -Chronic medical debility due to superobesity -Bilateral lower extremity wounds, as the patient to begin improving secondary to venous insufficiency -Essential hypertension -GERD -Diabetes mellitus type 2 -Chronic kidney disease stage III likely combination of diabetic nephropathy and hypertensive nephrosclerosis Plan: We'll DC Lasix drip. Clinically much improved. Patient on Demadex. Repeat labs in the morning. Discussed with the patient. Hopefully discharge home to [place].
--- NOTE | 2019-11-14 13:17 | P.PN ---
Subjective Progress Note Date: 11/14/19 This is a pleasant 54-year-old male past medical history significant for chronic atrial fibrillation on long-term anticoagulation, diabetes mellitus, hypertension, history of GI bleed, chronic lymphedema and morbid obesity. Patient was seen in consultation by Dr. Arriaga on the observation unit because of an abnormal EKG. He initially presented to the hospital with symptoms of cough with associated shortness of breath. Patient was subsequently transferred to the cardiac unit and initiated on IV Lasix drip. Intake and output are hard to assess, patient is incontinent, it does appear that his weight is down approximately 3 kg. Blood pressure 122/80 with a heart rate in the 70s, 90% on 3 L of oxygen. Sodium 139, potassium 4.5, BUN 60, creatinine 2.3. An echocardiogram with Doppler study was performed which revealed an ejection fraction of greater than 55%. Objective - Vital Signs Vital signs: Vital Signs Temp 97.6 F 11/14/19 11:19 Pulse 80 11/14/19 11:45 Resp 20 11/14/19 11:19 BP 123/82 11/14/19 11:19 Pulse Ox 90 L 11/14/19 11:19 Intake & Output 11/13/19 11/14/19 11/14/19 18:59 06:59 18:59 Intake Total 100 93.333 90.667 Balance 100 93.333 90.667 Weight 269.6 kg 269.6 kg Intake: Intake, IV Titration 100 93.333 90.667 Amount Furosemide 100 mg In 100 93.333 90.667 Sodium Chloride 0.9% 90 ml @ 10 MG/HR 10 mls/hr IV .Q10H [facility] Rx#: [id number] Oral 0 Other: Voiding Method Diaper Diaper Diaper Incontinent Incontinent Incontinent # Voids 8 5 4 - Exam CONSTITUTIONAL: No apparent distress. Morbidly obese. HEENT: Head is normocephalic. Pupils are equal, round. Sclerae anicteric. Mucous membranes of the mouth are moist. No JVD. No carotid bruit. CHEST EXAMINATION: Lungs are clear to auscultation. No chest wall tenderness is noted on palpation or with deep breathing. Diminished bilaterally and difficult to auscultate secondary to body habitus. HEART EXAMINATION: Irregular rate and rhythm. S1, S2 heard. No murmurs, gallops or rub. ABDOMEN: Soft, nontender. Positive bowel sounds. EXTREMITIES: Positive peripheral pulses, significant bilateral lower extremity edema and erthythema. No calf tenderness. NEUROLOGIC EXAMINATION: Patient is awake, alert and oriented x3. - Labs CBC & Chem 7: 11/12/19 11:24 11/14/19 05:36 Labs: Abnormal Lab Results - Last 24 Hours (Table) 11/13/19 11/13/19 11/13/19 Range/Units 06:43 06:43 16:34 Chloride (98-107) mmol/L Carbon Dioxide (22-30) mmol/L BUN (9-20) mg/dL Creatinine (0.66-1.25) mg/dL Glucose (74-99) mg/dL POC Glucose (mg/dL) 149 H (75-99) mg/dL Hemoglobin A1c 6.5 H (4.0-6.0) % Procalcitonin 1.10 H (0.02-0.09) ng/mL 11/13/19 11/14/19 11/14/19 Range/Units 20:26 05:36 06:05 Chloride 96 L (98-107) mmol/L Carbon Dioxide 35 H (22-30) mmol/L BUN 60 H (9-20) mg/dL Creatinine 2.37 H (0.66-1.25) mg/dL Glucose 148 H (74-99) mg/dL POC Glucose (mg/dL) 176 H 145 H (75-99) mg/dL Hemoglobin A1c (4.0-6.0) % Procalcitonin (0.02-0.09) ng/mL 11/14/19 Range/Units 11:32 Chloride (98-107) mmol/L Carbon Dioxide (22-30) mmol/L BUN (9-20) mg/dL Creatinine (0.66-1.25) mg/dL Glucose (74-99) mg/dL POC Glucose (mg/dL) 127 H (75-99) mg/dL Hemoglobin A1c (4.0-6.0) % Procalcitonin (0.02-0.09) ng/mL Microbiology - Last 24 Hours (Table) 11/12/19 11:20 Blood Culture - Preliminary Blood No Growth after 24 hours Assessment and Plan Plan: ASSESSMENT and plan #1 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 Hemodynamically stable. From cardiology's perspective, he may be able to be discharged once cleared by primary. DNP note has been reviewed, I agree with a documented findings and plan of care. Patient was seen and examined.
--- NOTE | 2019-11-14 15:33 | CDI ---
Documentation Clarification Form Date: 11/14/2019 02:56:27 PM From: Brigette Rice RN, CCDS Admit Date: 11/12/2019 12:26:00 PM Patient Name: Demetri Reich Visit Number: [id number] Discharge Date: ATTENTION: The Clinical Documentation Specialists (CDI) and [facility] Coding Staff appreciate your assistance in clarifying documentation. Please respond to the clarification below the line at the bottom and electronically sign. The CDI & [facility] Coding staff will review the response and follow-up if needed. Please note: Queries are made part of the Legal Health Record. If you have any questions, please contact the author of this message via ITS. Dr. Sam Canas Acute congestive heart failure exacerbation is documented in the H&P on 11/12 and ongoing progress notes, further specificity is needed. History/Risk Factors: Chronic bilateral lower extremity edema, Atrial Fibrillation, CKD 3, Atrial Fibrillation, Clinical Indicators: 54-year-old male presenting to ED on 11/12, with 3 days of dyspnea and orthopnea. X-ray performed, showing CHF versus multifocal pneumonia. His BNP is mildly elevated 1370. He is given Lasix in the emergency department. He was hypoxic in the 80s on room air. 11/12 10:19 Vital Signs:116/87 66 20 99 % RA Echocardiogram Results: LV size, wall thickness and systolic function are normal, with an EF greater than 55 % 11/14/19 Dr. Arriaga, Cardiology consult: Volume overload secondary to renal failure. Treatment: Lopressor 50 mg PO BID Demadex 20 mg PO BID (current 11/14) Lasix 40 mg IV Q12HR, change to Lasix 100mg @ 10 mls/hr IV Q10 Hrs (now DC) In your professional opinion, can you please clarify the type of CHF if known? Acute congestive heart failure exacerbation, diastolic Other, please specify Unable to Determine (Last Revision: December 2017) Acute on chronic congestive heart failure exacerbation from diastolic dysfunction EF greater than 55%, POA MTDD
--- NOTE | 2019-11-14 15:43 | PN ---
PROGRESS NOTE The patient is seen for follow up for acute kidney injury on top of chronic kidney disease and severe volume overload. Currently the patient is maintained on Lasix drip. He states he is breathing much better, although he continues to have significant lower extremity edema. The patient was asking to be discharged today as he has important issues to take care of at home. PHYSICAL EXAMINATION: On examination today, blood pressure is 126/76, heart rate is 89 per minute, patient is afebrile. Examination of the heart: S1 and S2. Examination of the lungs: Bilateral breath sounds are heard. The is morbidly obese. Abdomen is soft, nontender. Examination of the lower extremities shows severe chronic skin changes with chronic lower extremity edema. 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 LABORATORY DATA: Laboratories show sodium 139, potassium 4.5, chloride 96, CO2 35, BUN 60, creatinine 2.37. ASSESSMENT: 1. Acute kidney injury, cardiorenal, associated with current diuresis. The patient can be switched to oral diuretics. His volume status has improved. Respiratory status has improved as well. Serum creatinine is higher than on admission; however, the patient will need to maintain follow up as an outpatient. His creatinine has been close to 2 in February of 2019. 2. Chronic kidney disease stage IIIB secondary to nephrosclerosis and cardiorenal syndrome with multiple episodes of acute kidney injury. Urinalysis is still pending. Patient did have trace protein in February 2019 suggesting possible underlying diabetic nephropathy as well. 3. Volume overload, currently improved. Patient has already been switched over to oral diuretics which is fine given the increase in his serum creatinine. 4. Persistent atrial fibrillation. PLAN: Follow up as outpatient. Maintain Demadex as an outpatient. Maintain salt and fluid restriction as well. MMODL / IJN: [id number] /
[2019-11-14 16:45] LABS: Glucose,Whole Blood 146 mg/dL (75-99)
[2019-11-14 20:29] LABS: Glucose,Whole Blood 167 mg/dL (75-99)
[2019-11-14] MEDS: ATORVASTATIN 40 MG TAB PO SCH (20:54)
[2019-11-15] MEDS: HYDROcodone/APAP 10-325MG 1 EACH TAB PO PRN ×2 (04:00→13:41)
[2019-11-15 06:18] LABS: Glucose,Whole Blood 137 mg/dL (75-99)
[2019-11-15] MEDS: INSULIN ASPART (NovoLOG) 100 UNIT/ML VIAL SQ SCH ×2 (06:33→12:21)
[2019-11-15] MEDS: LEVOTHYROXINE 125 MCG TAB PO SCH (06:33)
[2019-11-15 07:01] LABS: Calcium 8.5 mg/dL (8.4-10.2); Potassium 4.4 mmol/L (3.5-5.1)
[2019-11-15] MEDS: IPRATROPIUM-ALBUTEROL 3 ML NEB INHALATION SCH ×2 (08:15→12:03)
[2019-11-15 09:08] VITALS: RESP 18; TEMP 97.8
[2019-11-15] MEDS: LINAGLIPTIN 5 MG TABLET PO SCH (09:16)
[2019-11-15] MEDS: CEFDINIR 300 MG CAP PO SCH (09:16)
[2019-11-15] MEDS: ALLOPURINOL 300 MG TAB PO SCH (09:16)
[2019-11-15] MEDS: FERROUS SULFATE 325 MG TAB PO SCH (09:16)
[2019-11-15] MEDS: METHYLPHENIDATE HCL 10 MG TAB PO SCH (09:16)
[2019-11-15] MEDS: predniSONE 20 MG TAB PO SCH (09:17)
[2019-11-15] MEDS: METOPROLOL TARTRATE 50 MG TAB PO SCH (09:17)
[2019-11-15] MEDS: PANTOPRAZOLE 40 MG TABLET PO SCH (09:17)
[2019-11-15] MEDS: TORSEMIDE 20 MG TAB PO SCH (09:17)
[2019-11-15 11:32] VITALS: BP 127/84
[2019-11-15 11:41] LABS: Glucose,Whole Blood 155 mg/dL (75-99)
--- NOTE | 2019-11-15 11:52 | P.PN ---
Subjective Progress Note Date: 11/15/19 Principal diagnosis: This is a 54 year-old morbidly obese male seen in consultation because of acute kidney injury and chronic kidney disease. Acute kidney injury is deemed to be from cardiorenal syndrome. He is currently on diuretics and his creatinine has improved. His baseline CK D secondary to diabetic nephropathy. His chronic stasis edema, hypothyroidism atrial fibrillation and mostly bedridden. Vital signs are stable blood pressure in the 120s to 130s. Edema is stable he has chronic stasis edema nothing to suggest any pitting currently Objective - Vital Signs Vital signs: Vital Signs Temp 97.8 F 11/15/19 08:00 Pulse 101 H 11/15/19 11:32 Resp 18 11/15/19 11:32 BP 127/84 11/15/19 11:31 Pulse Ox 82 L 11/15/19 11:31 Intake & Output 11/14/19 11/15/19 11/15/19 18:59 06:59 18:59 Intake Total 475.667 10 540 Balance 475.667 10 540 Weight 269.6 kg 269.3 kg Intake: IV 10 0.9 10 Intake, IV Titration 115.667 Amount Diltiazem 125 mg In 25 Sodium Chloride 0.9% 100 ml @ 5 MG/HR 5 mls/hr IV .Q24H [facility] Rx#:[id number] Furosemide 100 mg In 90.667 Sodium Chloride 0.9% 90 ml @ 10 MG/HR 10 mls/hr IV .Q10H [facility] Rx#: [id number] Oral 360 540 Other: Voiding Method Diaper Diaper Diaper Incontinent Incontinent Incontinent # Voids 4 1 1 Morbidly obese male, HEENT exam difficult exam but no JVP neck is supple no facial asymmetry Lungs are clear to auscultation fair air entry bilaterally but difficult to hear distant. Heart sounds are unremarkable for any murmur rub gallop Patient known with atrial fibrillation Abdomen is difficult to examine large pendulous and obese Extremity exam reveals chronic thickening and coarse skin but no pitting noted Neurologically awake alert oriented. Had difficulty sitting up. - Labs CBC & Chem 7: 11/12/19 11:24 11/15/19 06:15 Labs: Abnormal Lab Results - Last 24 Hours (Table) 11/14/19 11/14/19 11/15/19 Range/Units 16:43 20:28 06:15 Chloride 96 L (98-107) mmol/L Carbon Dioxide 35 H (22-30) mmol/L BUN 70 H (9-20) mg/dL Creatinine 2.18 H (0.66-1.25) mg/dL Glucose 148 H (74-99) mg/dL POC Glucose (mg/dL) 146 H 167 H (75-99) mg/dL 11/15/19 11/15/19 Range/Units 06:16 11:39 Chloride (98-107) mmol/L Carbon Dioxide (22-30) mmol/L BUN (9-20) mg/dL Creatinine (0.66-1.25) mg/dL Glucose (74-99) mg/dL POC Glucose (mg/dL) 137 H 155 H (75-99) mg/dL Microbiology - Last 24 Hours (Table) 11/12/19 11:20 Blood Culture - Preliminary Blood No Growth after 48 hours Assessment and Plan Assessment: Impression 1. Acute kidney injury from cardiorenal syndrome. Responding to oral diuretics with creatinine coming down. Peak creatinine 2.3 yesterday and 2.18 this morning 2. Chronic kidney disease stage IIIB secondary to nephrosclerosis. Possible early diabetic nephropathy urinary protein not checked yet. Baseline creatinine 1.75 on 11/12/2019 and 1.9 early on 03/10/2019 3. Morbid obesity bedridden mostly 4. Chronic stasis edema 5. Atrial fibrillation. 6. Mild degree of metabolic alkalosis from diuresis bicarb is 35 Recommendation 1. Maintain current diuretic regimen. He can be discharged but will need to be followed up but because of difficulty in transportation his primary physician can coordinate with our office with his blood pressure records as well as labs and we can try to help
[2019-11-15 12:17] VITALS: PULSE 100
--- NOTE | 2019-11-15 14:34 | P.DS ---
Providers Date of admission: 11/12/19 12:26 Expected date of discharge: 11/15/19 Attending physician: Sam Canas Consults: 11/12/19 20:10 Consult Physician Routine Consulting Provider: Titi Hallman Consult Reason/Comments: Abnormal EKG Do you want consulting provider notified?: Yes 11/12/19 20:47 Consult Physician Routine Consulting Provider: Najma Davis Consult Reason/Comments: Chronic kidney disease Do you want consulting provider notified?: Yes Primary care physician: Yuri Myrick MD Hospital Course: Chief Complaint: Short of breath History of presenting complaint: This is a pleasant 54-year-old patient of visiting physician Dr. Yuri Atwood. Patient was here in January of last year but extended hospital stay. Patient was then admitted with severe cellulitis with multiple organisms including both lower extremities groin scrotal area and wants. He then also had septic shock. Also had a UTI. Chronic stable medical conditions include chronic medical debility, diabetes, GERD, hypertension, chronic kidney disease diabetic nephropathy, bilateral chronic lower extremity wounds which is cared for by son and hypothyroidism atrial fibrillation. Patient for 2 days now presents with increasing shortness of breath cough. Has similar sputum. No fever no chills. Patient has a hospital bed anomalies propped up closely. Noticed that he is becoming more orthopneic and short of breath. Decided to be brought in. For his other lower external to have been healing well with care given by his and son. Appetite has been okay. Admitted with CHF exacerbation. Started on IV Lasix drip. Responded well. Today-. Feeling much better. Tolerating diet. Keep warm. Creatinine had bumped up. Told to hold diuretics for 24 hours. Consultation: Nephrology Dr. Harinder Arriaga from cardiology Physical examination: VITAL SIGNS: 97.8, 97, 18, 139/96, 93% on 3 L GENERAL: Propped up in bed, comfortable. EYES: Pupils equal. Conjunctiva normal. HEENT: External appearance of nose and ears normal, oral cavity grossly normal. NECK: Short and thick, JVD unable to assess mass not palpable. HEART: Heart sounds are muffled; edema present. LUNGS:[ Respiratory rate increased; diminished breath sounds. ABDOMEN: Soft, nontender, liver spleen not palpable, no masses palpable. PSYCH: Alert and oriented x3; mood and affect normal. DERMATOLOGICAL: Dryness of the skin on lower extremity and superficial wounds of both jasmnie INVESTIGATIONS, reviewed in the clinical context: Potassium 4.5 160 creatinine 2.37 Previous testing White count 7.2 hemoglobin 15.3 potassium 4.5 months 47 crit 1.75 Influenza type A and type B both negative EKG tracing personally reviewed by me-atrial fibrillation rate controlled Chest x-ray film personally reviewed by me-possible infiltrate versus venous prominence Pro calcitonin 1.10 Assessment: - acute congestive heart failure exacerbation, EF not known, improved -Acute kidney injury, prerenal from diuresis -Persistent atrial fibrillation -Acute tracheal bronchitis -Morbid obesity BMI 75 -Chronic medical debility due to superobesity -Bilateral lower extremity superficial wounds , as the patient to begin improving secondary to venous insufficiency -Essential hypertension -GERD -Diabetes mellitus type 2 -Chronic kidney disease stage III likely combination of diabetic nephropathy and hypertensive nephrosclerosis Disposition: Home Patient Condition at Discharge: Stable Plan - Discharge Summary Discharge Rx Participant: No New Discharge Prescriptions: New Atorvastatin [Lipitor] 40 mg PO HS #30 tab predniSONE 0 mg PO DIRECTED #6 tab Continue Hydrocodone/Acetaminophen [[place] 10-325] 1 tab PO Q6H PRN PRN Reason: Pain Pantoprazole Sodium [Protonix] 40 mg PO DAILY #30 tablet. Ammonium Lactate Lotion [Lac-Hydrin 12% Lotion] 1 applic TOPICAL BID PRN PRN Reason: Skin Irritation Allopurinol [Zyloprim] 300 mg PO DAILY sitaGLIPtin [Januvia] 25 mg PO DAILY Ferrous Sulfate [Iron (65 MG Elemental)] 325 mg PO BID Ergocalciferol (Vitamin D2) [Drisdol] 50,000 unit PO MO Nystatin [Nystop] 1 applic TOPICAL BID PRN PRN Reason: Skin Irritation Torsemide [Demadex] 20 mg PO BID #60 tab Metoprolol Tartrate [Lopressor] 25 mg PO BID Methylphenidate HCl 20 mg PO DAILY Levothyroxine Sodium [Synthroid] 125 mcg PO DAILY Discharge Medication List Hydrocodone/Acetaminophen [[place] 10-325] 1 tab PO Q6H PRN 10/12/16 [History] Pantoprazole Sodium [Protonix] 40 mg PO DAILY #30 tablet. 11/10/16 [Rx] Allopurinol [Zyloprim] 300 mg PO DAILY 10/21/18 [History] Ammonium Lactate Lotion [Lac-Hydrin 12% Lotion] 1 applic TOPICAL BID PRN 10/21/18 [History] Ergocalciferol (Vitamin D2) [Drisdol] 50,000 unit PO MO 10/21/18 [History] Ferrous Sulfate [Iron (65 MG Elemental)] 325 mg PO BID 10/21/18 [History] sitaGLIPtin [Januvia] 25 mg PO DAILY 10/21/18 [History] Nystatin [Nystop] 1 applic TOPICAL BID PRN 02/12/19 [History] Torsemide [Demadex] 20 mg PO BID #60 tab 02/25/19 [Rx] Levothyroxine Sodium [Synthroid] 125 mcg PO DAILY 11/12/19 [History] Methylphenidate HCl 20 mg PO DAILY 11/12/19 [History] Metoprolol Tartrate [Lopressor] 25 mg PO BID 11/12/19 [History] Atorvastatin [Lipitor] 40 mg PO HS #30 tab 11/15/19 [Rx] predniSONE 0 mg PO DIRECTED #6 tab 11/15/19 [Rx] Follow up Appointment(s)/Referral(s): Najma Davis MD [STAFF PHYSICIAN] - [address] [facility], [NON-STAFF] - Yuri Myrick MD [Primary Care Provider] - 1-2 days Patient Instructions/Handouts: Heart Failure (DC), Chronic Kidney Disease (DC) Activity/Diet/Wound Care/Special Instructions: Needs script for wound care orders to be sent to DME once wound care orders are placed... start demadex on sunday
[2019-11-17] MEDS ORDERED: ERGOCALCIFEROL 50,000 UNIT CAP PO SCH (09:00)
== END 2019-11-15 14:52 | disposition home or self-care (01) | DRG 291 ==
LOC: EC 10:13 → 5NMEDONC 12:26 → 4SSUR 16:34 → 3SCARD 11-13 23:53
PROVIDERS: ADMIT Hospitalist; ATTEND Hospitalist
DX: I13.0 Hypertensive heart and chronic kidney disease with heart failure and stage 1 through stage 4 chronic kidney disease, or unspecified chronic kidney disease (principal); I50.33 Acute on chronic diastolic (congestive) heart failure; E87.3 Alkalosis; Z68.45 Body mass index [BMI] 70 or greater, adult; I48.19 Other persistent atrial fibrillation; J44.0 Chronic obstructive pulmonary disease with (acute) lower respiratory infection; J44.1 Chronic obstructive pulmonary disease with (acute) exacerbation; N17.9 Acute kidney failure, unspecified; N18.4 Chronic kidney disease, stage 4 (severe); E03.9 Hypothyroidism, unspecified; E11.22 Type 2 diabetes mellitus with diabetic chronic kidney disease; E66.01 Morbid (severe) obesity due to excess calories; T50.2X5A Adverse effect of carbonic-anhydrase inhibitors, benzothiadiazides and other diuretics, initial encounter; Z74.01 Bed confinement status; F41.9 Anxiety disorder, unspecified; I87.2 Venous insufficiency (chronic) (peripheral); I89.0 Lymphedema, not elsewhere classified; J20.9 Acute bronchitis, unspecified; K21.9 Gastro-esophageal reflux disease without esophagitis; Z87.440 Personal history of urinary (tract) infections; R09.02 Hypoxemia; R32 Unspecified urinary incontinence; Z79.84 Long term (current) use of oral hypoglycemic drugs; Z79.890 Hormone replacement therapy; Z79.899 Other long term (current) drug therapy; Z83.3 Family history of diabetes mellitus; Z86.14 Personal history of Methicillin resistant Staphylococcus aureus infection; Z87.891 Personal history of nicotine dependence; Z83.2 Family history of diseases of the blood and blood-forming organs and certain disorders involving the immune mechanism; Z88.8 Allergy status to other drugs, medicaments and biological substances
CPT/HCPCS: 36415; 71045; 80048; 80053; 83036; 83605; 83735; 83880; 84145; 84484; 85025; 85610; 85730; 87040; 87502; 93005; 93306; 94640; 94760; 96365; 96366; 96375; 99285

== ENCOUNTER 2019-11-26 08:41 | Inpatient (IN) | payer OTHER ==
[2019-11-26] MEDS ORDERED: SODIUM CHLORIDE 0.9% 1,000 ML IV STA (08:48)
[2019-11-26] MEDS ORDERED: IPRATROPIUM-ALBUTEROL 3 ML NEB INHALATION STA ×3 (08:48→11:14)
--- NOTE | 2019-11-26 08:57 | ED ---
Chest Pain HPI - General Chief Complaint: Chest Pain Stated Complaint: LACEY/chest pain Time Seen by Provider: 11/26/19 08:41 Source: patient, EMS, RN notes reviewed, old records reviewed Mode of arrival: EMS Limitations: no limitations - History of Present Illness Initial Comments: This is a 54-year-old male with a history of atrial fibrillation CHF PNA lung disease UTI and morbid obesity who presents with complaints of shortness of breath and left-sided chest pain this started last night. He states he was cleaning out his breathing apparatus and did blow a large amount of blood clot out of his nose last night he started developing left-sided chest pain sharp in nature with shortness of breath he denies any overt fevers chills sweats. He was brought in by EMS for evaluation. Per paramedics his saturation was in the low 80s at home he does use 2 L at home. MD Complaint: chest pain, other - Related Data Home Medications Medication Instructions Recorded Confirmed Hydrocodone/Acetaminophen [[place] 1 tab PO Q6H PRN 10/12/16 11/26/19 10-325] Allopurinol [Zyloprim] 300 mg PO DAILY 10/21/18 11/26/19 Ammonium Lactate Lotion 1 applic TOPICAL BID PRN 10/21/18 11/26/19 [Lac-Hydrin 12% Lotion] Ergocalciferol (Vitamin D2) 50,000 unit PO MO 10/21/18 11/26/19 [Drisdol] Ferrous Sulfate [Iron (65 MG 325 mg PO BID 10/21/18 11/26/19 Elemental)] Nystatin [Nystop] 1 applic TOPICAL BID PRN 02/12/19 11/26/19 Levothyroxine Sodium [Synthroid] 125 mcg PO DAILY 11/12/19 11/26/19 Methylphenidate HCl 20 mg PO DAILY 11/12/19 11/26/19 Metoprolol Tartrate [Lopressor] 25 mg PO BID 11/12/19 11/26/19 Glimepiride [Amaryl] 4 mg PO DAILY 11/26/19 11/26/19 Previous Rx's Medication Instructions Recorded Pantoprazole Sodium [Protonix] 40 mg PO DAILY #30 tablet. 11/10/16 Torsemide [Demadex] 20 mg PO BID #60 tab 02/25/19 Atorvastatin [Lipitor] 40 mg PO HS #30 tab 11/15/19 Allergies Allergy/AdvReac Type Severity Reaction Status Date / Time warfarin [From Coumadin] AdvReac caused GI Verified 11/12/19 11:12 bleed, affected kidney function wool AdvReac Unknown Verified 11/12/19 11:12 Review of Systems ROS Statement: Those systems with pertinent positive or pertinent negative responses have been documented in the HPI. ROS Other: All systems not noted in ROS Statement are negative. EKG Findings - EKG Results: EKG: interpreted by DEBBIED (Atrial fibrillation rate of 117. Interval 256 QRS duration 114 QT since QTC 360/440 low-voltage QRS septal infarct of indeterminate age is noted nonspecific T-wave configuration some artifact is present) Past Medical History Past Medical History: Atrial Fibrillation, Diabetes Mellitus, GERD/Reflux, Hypertension, Renal Disease, Skin Disorder Additional Past Medical History / Comment(s): Bleed related to coumadin, chronic lymphedema, bilateral lower extremity wounds, history of chronic atrial fibrillation, history of GI bleeding related to Coumadin therapy, chronic lymphedema of the lower extremities, morbid obesity with a BMI of 75, chronic kidney disease stage 3-4, hypertension, diabetes mellitus, history of MRSA and multidrug resistant organism infection including gram-negative infections. Hypothyroidism History of Any Multi-Drug Resistant Organisms: MRSA, Other MDRO Date of last positivie culture/infection: 08/21/17 MRSA MDRO Source:: leg rt Past Surgical History: Orthopedic Surgery Additional Past Surgical History / Comment(s): bilateral feet surgery. per patient had pins in his feet. Past Anesthesia/Blood Transfusion Reactions: No Reported Reaction Past Psychological History: Anxiety Smoking Status: Former smoker Past Alcohol Use History: Occasional Past Drug Use History: None Reported - Past Family History Father Family Medical History: Diabetes Mellitus Additional Family Medical History / Comment(s): both legs amputated due to blood clots Mother Additional Family Medical History / Comment(s): lost both of legs, blood clot surgeries, stent in leg, carotid endardectomy General Exam - General Exam Comments Initial Comments: This a well-developed morbidly obese male who is awake alert oriented 3 Limitations: no limitations General appearance: alert, anxious, in distress Head exam: Present: atraumatic, normocephalic, normal inspection Eye exam: Present: normal appearance, PERRL, EOMI. Absent: scleral icterus, conjunctival injection, periorbital swelling ENT exam: Present: normal exam, mucous membranes moist Neck exam: Present: normal inspection. Absent: tenderness, meningismus, lymphadenopathy Respiratory exam: Present: chest wall tenderness (Some tenderness palpation of l eft anterolateral chest wall no step-off or crepitation), decreased breath sounds. Absent: respiratory distress, wheezes, rales, rhonchi, stridor Cardiovascular Exam: Present: tachycardia, irregular rhythm, normal heart sounds. Absent: systolic murmur, diastolic murmur, rubs, gallop, clicks GI/Abdominal exam: Present: soft, normal bowel sounds, other (Obese abdomen umbilical hernia noted). Absent: distended, tenderness, guarding, rebound, rigid Rectal exam: Present: deferred Extremities exam: Present: full ROM, normal capillary refill, other (Chronic stasis dermatitis with chronic erythema). Absent: tenderness, pedal edema, joint swelling, calf tenderness Back exam: Present: normal inspection Neurological exam: Present: alert, oriented X3, CN II-XII intact Psychiatric exam: Present: normal affect, anxious Skin exam: Present: warm, dry, intact. Absent: rash Course Vital Signs 11/26/19 11/26/19 11/26/19 08:43 08:50 08:51 Temperature 97.9 F Pulse Rate 114 H 133 H Respiratory 22 20 Rate Blood Pressure 122/84 O2 Sat by Pulse 96 96 Oximetry - Reevaluation(s) Reevaluation #1: 11/26/19 11:07 Patient does states feels somewhat better with respect to his breathing ability on reexamination. Chest Pain MDM - MDM I did review the imaging and report is evidence of congestive failure with markedly is consistent with CHF bilaterally. I did discuss findings with patient family patient demonstrated evidence of CHF he will be admitted the case is discussed with Dr. Canas. Patient be started on a Lasix drip at 10 mg per hour. Critical Care Time Critical Care Time: Yes Total Critical Care Time: 45 Critical Care Time: 15 minutes of critical care time which includes initial presentation with history physical labs x-rays discussed with paramedics upon arrival discussed with family members upon arrival review of old charting was available for reevaluation the patient discussion the patient family regarding findings dis cussion with the main physician admission orders and documentation of the above Disposition Clinical Impression: Congestive heart failure (CHF), Respiratory distress, acute, Hypoxemia, Rapid atrial fibrillation, Morbid obesity, Renal insufficiency syndrome Disposition: ADMITTED IP TO THIS HOSP Condition: Fair Referrals: Yuri Myrick MD [Primary Care Provider] - 1-2 days
--- NOTE | 2019-11-26 09:21 | XR ---
EXAMINATION TYPE: XR chest 2V DATE OF EXAM: 11/26/2019 COMPARISON: 11/12/2019 TECHNIQUE: PA and lateral views submitted. HISTORY: Chest pain FINDINGS: Bilateral consolidation small effusion. Heart is enlarged. Diffuse interstitial pattern. No pneumotho rax. Pulmonary arteries are prominent. IMPRESSION: 1. Correlate for CHF with bilateral infiltrate and small effusion stable in appearance.
[2019-11-26 09:34] LABS: Anisocytosis Slight; Basophils % (A) 0 %; Eosinophils # (A) 0.1 k/uL (0-0.7); Eosinophils % (A) 1 %; HCT 53.9 % (39.0-53.0); HGB 15.9 gm/dL (13.0-17.5); Hypochromasia Marked; Lymphocytes # (A) 0.7 k/uL (1.0-4.8); Lymphocytes % (A) 8 %; MCHC 29.5 g/dL (31.0-37.0); MCV 95.1 fL (80.0-100.0); Mean Platelet Volume 9.1; Monocytes # (A) 0.9 k/uL (0-1.0); Monocytes % (A) 10 %; Neutrophils # (A) 6.8 k/uL (1.3-7.7); Neutrophils % (A) 79 %; Platelet Count 221 k/uL (150-450); RBC 5.67 m/uL (4.30-5.90); RDW 17.4 % (11.5-15.5); WBC 8.5 k/uL (3.8-10.6)
[2019-11-26 09:44] LABS: INR 1.2 (<1.2); Prothrombin Time 12.1 sec (9.0-12.0)
[2019-11-26 09:45] LABS: Partial Thromboplastin Time 24.9 sec (22.0-30.0)
[2019-11-26 09:48] LABS: Albumin 3.4 g/dL (3.5-5.0); Magnesium 2.2 mg/dL (1.6-2.3); Potassium 4.4 mmol/L (3.5-5.1); Total Bilirubin 2.1 mg/dL (0.2-1.3); Total Protein 7.5 g/dL (6.3-8.2)
[2019-11-26] MEDS ORDERED: HYDROmorphone 1 MG/ML 1 ML SYRINGE IVP STA (09:49)
[2019-11-26 10:06] LABS: VBG PH 7.26 (7.31-7.41)
[2019-11-26] MEDS ORDERED: FUROSEMIDE 10 MG/ML 4 ML VIAL IV STA (11:15)
[2019-11-26] MEDS ORDERED: NYSTATIN 100,000 UNIT/GM POWD 15 GM TOPICAL PRN (11:20)
[2019-11-26] MEDS ORDERED: AMMONIUM LACTATE 12% LOTION 225 GM BTL TOPICAL PRN (11:20)
--- NOTE | 2019-11-26 11:22 | ED ---
Medical Decision Making - Lab Data Result diagrams: 11/26/19 08:57 11/26/19 08:57 Lab Results 11/26/19 11/26/19 11/26/19 Range/Units 08:57 08:57 08:57 WBC 8.5 (3.8-10.6) k/uL RBC 5.67 (4.30-5.90) m/uL Hgb 15.9 (13.0-17.5) gm/dL Hct 53.9 H (39.0-53.0) % MCV 95.1 (80.0-100.0) fL MCH 28.0 (25.0-35.0) pg MCHC 29.5 L (31.0-37.0) g/dL RDW 17.4 H (11.5-15.5) % Plt Count 221 (150-450) k/uL Neutrophils % 79 % Lymphocytes % 8 % Monocytes % 10 % Eosinophils % 1 % Basophils % 0 % Neutrophils # 6.8 (1.3-7.7) k/uL Lymphocytes # 0.7 L (1.0-4.8) k/uL Monocytes # 0.9 (0-1.0) k/uL Eosinophils # 0.1 (0-0.7) k/uL Basophils # 0.0 (0-0.2) k/uL Hypochromasia Marked Anisocytosis Slight PT 12.1 H (9.0-12.0) sec INR 1.2 H (<1.2) APTT 24.9 (22.0-30.0) sec VBG pH (7.31-7.41) VBG pCO2 (37-51) mmHg VBG HCO3 (24-28) mmol/L Sodium 136 L (137-145) mmol/L Potassium 4.4 (3.5-5.1) mmol/L Chloride 90 L (98-107) mmol/L Carbon Dioxide 35 H (22-30) mmol/L Anion Gap 11 mmol/L BUN 57 H (9-20) mg/dL Creatinine 1.82 H (0.66-1.25) mg/dL Est GFR (CKD-EPI)AfAm 47 (>60 ml/min/1.73 sqM) Est GFR (CKD-EPI)NonAf 41 (>60 ml/min/1.73 sqM) Glucose 129 H (74-99) mg/dL Plasma Lactic Acid Chong (0.7-2.0) mmol/L Calcium 9.0 (8.4-10.2) mg/dL Magnesium 2.2 (1.6-2.3) mg/dL Total Bilirubin 2.1 H (0.2-1.3) mg/dL AST 33 (17-59) U/L ALT 37 (4-49) U/L Alkaline Phosphatase 328 H (38-126) U/L Creatine Kinase 24 L (55-170) U/L Troponin I (0.000-0.034) ng/mL NT-Pro-B Natriuret Pep pg/mL Total Protein 7.5 (6.3-8.2) g/dL Albumin 3.4 L (3.5-5.0) g/dL 11/26/19 11/26/19 11/26/19 Range/Units 08:57 08:57 08:57 WBC (3.8-10.6) k/uL RBC (4.30-5.90) m/uL Hgb (13.0-17.5) gm/dL Hct (39.0-53.0) % MCV (80.0-100.0) fL MCH (25.0-35.0) pg MCHC (31.0-37.0) g/dL RDW (11.5-15.5) % Plt Count (150-450) k/uL Neutrophils % % Lymphocytes % % Monocytes % % Eosinophils % % Basophils % % Neutrophils # (1.3-7.7) k/uL Lymphocytes # (1.0-4.8) k/uL Monocytes # (0-1.0) k/uL Eosinophils # (0-0.7) k/uL Basophils # (0-0.2) k/uL Hypochromasia Anisocytosis PT (9.0-12.0) sec INR (<1.2) APTT (22.0-30.0) sec VBG pH 7.26 L (7.31-7.41) VBG pCO2 84 H* (37-51) mmHg VBG HCO3 37 H (24-28) mmol/L Sodium (137-145) mmol/L Potassium (3.5-5.1) mmol/L Chloride (98-107) mmol/L Carbon Dioxide (22-30) mmol/L Anion Gap mmol/L BUN (9-20) mg/dL Creatinine (0.66-1.25) mg/dL Est GFR (CKD-EPI)AfAm (>60 ml/min/1.73 sqM) Est GFR (CKD-EPI)NonAf (>60 ml/min/1.73 sqM) Glucose (74-99) mg/dL Plasma Lactic Acid Chong (0.7-2.0) mmol/L Calcium (8.4-10.2) mg/dL Magnesium (1.6-2.3) mg/dL Total Bilirubin (0.2-1.3) mg/dL AST (17-59) U/L ALT (4-49) U/L Alkaline Phosphatase (38-126) U/L Creatine Kinase (55-170) U/L Troponin I 0.018 (0.000-0.034) ng/mL NT-Pro-B Natriuret Pep 1480 pg/mL Total Protein (6.3-8.2) g/dL Albumin (3.5-5.0) g/dL 11/26/19 Range/Units 08:57 WBC (3.8-10.6) k/uL RBC (4.30-5.90) m/uL Hgb (13.0-17.5) gm/dL Hct (39.0-53.0) % MCV (80.0-100.0) fL MCH (25.0-35.0) pg MCHC (31.0-37.0) g/dL RDW (11.5-15.5) % Plt Count (150-450) k/uL Neutrophils % % Lymphocytes % % Monocytes % % Eosinophils % % Basophils % % Neutrophils # (1.3-7.7) k/uL Lymphocytes # (1.0-4.8) k/uL Monocytes # (0-1.0) k/uL Eosinophils # (0-0.7) k/uL Basophils # (0-0.2) k/uL Hypochromasia Anisocytosis PT (9.0-12.0) sec INR (<1.2) APTT (22.0-30.0) sec VBG pH (7.31-7.41) VBG pCO2 (37-51) mmHg VBG HCO3 (24-28) mmol/L Sodium (137-145) mmol/L Potassium (3.5-5.1) mmol/L Chloride (98-107) mmol/L Carbon Dioxide (22-30) mmol/L Anion Gap mmol/L BUN (9-20) mg/dL Creatinine (0.66-1.25) mg/dL Est GFR (CKD-EPI)AfAm (>60 ml/min/1.73 sqM) Est GFR (CKD-EPI)NonAf (>60 ml/min/1.73 sqM) Glucose (74-99) mg/dL Plasma Lactic Acid Chong 2.3 H* (0.7-2.0) mmol/L Calcium (8.4-10.2) mg/dL Magnesium (1.6-2.3) mg/dL Total Bilirubin (0.2-1.3) mg/dL AST (17-59) U/L ALT (4-49) U/L Alkaline Phosphatase (38-126) U/L Creatine Kinase (55-170) U/L Troponin I (0.000-0.034) ng/mL NT-Pro-B Natriuret Pep pg/mL Total Protein (6.3-8.2) g/dL Albumin (3.5-5.0) g/dL Disposition Clinical Impression: Congestive heart failure (CHF), Respiratory distress, acute, Hypoxemia, Rapid atrial fibrillation, Morbid obesity, Renal insufficiency syndrome, Chest wall syndrome, Costochondritis Disposition: ADMITTED IP TO THIS HOSP Condition: Fair Referrals: Yuri Myrick MD [Primary Care Provider] - 1-2 days
[2019-11-26] MEDS: FUROSEMIDE 100 MG in SODIUM CHLORIDE 0.9% 90 ML IV SCH ×2 (12:43→21:04)
[2019-11-26] MEDS ORDERED: HEPARIN SODIUM,PORCINE 5,000 UNIT/ML 1 ML VIAL SQ SCH (16:00)
[2019-11-26 17:07] LABS: Glucose,Whole Blood 186 mg/dL (75-99)
[2019-11-26] MEDS: ATORVASTATIN 40 MG TAB PO SCH (20:49)
[2019-11-26] MEDS: FERROUS SULFATE 325 MG TAB PO SCH (20:49)
[2019-11-26] MEDS: HYDROcodone/APAP 10-325MG 1 EACH TAB PO PRN (20:49)
[2019-11-26] MEDS: METOPROLOL TARTRATE 25 MG TAB PO SCH (20:49)
[2019-11-26 21:17] LABS: Glucose,Whole Blood 258 mg/dL (75-99)
--- NOTE | 2019-11-26 21:39 | P.HPIM ---
History of Present Illness H&P Date: 11/26/19 Chief Complaint: Chest pain Chief Complaint: Short of breath History of presenting complaint: This is a pleasant 54-year-old patient of visiting physician Dr. Yuri Atwood. Patient was here in January of last year with extended hospital stay. Patient was then admitted with severe cellulitis with multiple organisms including both lower extremities groin scrotal area. He then also had septic shock. Also had a UTI. Chronic stable medical conditions include chronic medical debility, diabetes, GERD, hypertension, chronic kidney disease diabetic nephropathy, bilateral chronic lower extremity wounds which is cared for by son and hypothyroidism atrial fibrillation. Recently admitted with CHF exacerbation. Responded well to Lasix drip. Patient now presents with patient was trying hard to blowing his nose. He managed to blow out significant amount of clotted blood goop he described. At the same time developed sharp pain in the left precordial area. The pain was present off and on most of the night. Pain is reproducible. Did not radiate to the to the neck or arms. Patient's breathing is not too different from his baseline.. Has chronic lower action be swallowing and wounds. No fever or chills. Review of systems: GEN.: Tired EYES: None HEENT: None NECK: None RESPIRATORY: Baseline some shortness of breath CARDIOVASCULAR: Chronic edema GASTROINTESTINAL: None GENITOURINARY: None MUSCULOSKELETAL: None LYMPHATICS: None HEMATOLOGICAL: None PSYCHIATRY: But anxious NEUROLOGICAL: None DERMATOLOGICAL: Bilateral lower extremity wounds Past medical history to include: Atrial fibrillation, hypothyroidism, bilateral lower extremity wounds, chronic kidney disease stage II, hypertension, GERD, diabetes mellitus type 2, chronic medical debility, morbid obesity, CHF Social history: Lives with his . 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 No significant alcohol history. Smoked 2 packs a day for 20 years stopped over 20 years ago. Physical examination: VITAL SIGNS: 97.2, 75, 18, 11 3/72, 96% on 4 L GENERAL: BMI 74.4, sitting up in bed, awake tired EYES: Pupils equal. Conjunctiva normal. HEENT: External appearance of nose and ears normal, oral cavity grossly normal. NECK: Short and thick, JVD unable to assess mass not palpable. HEART: Heart sounds are muffled; edema present. LUNGS:[ Respiratory rate increased; diminished breath sounds. MUSCULOSKELETAL: Reproducible left anterior chest wall pain ABDOMEN: Soft, nontender, liver spleen not palpable, no masses palpable. PSYCH: Alert and oriented x3; mood and affect normal. NEUROLOGICAL: Cranial nerves grossly intact; no facial asymmetry, power and sensation grossly intact. LYMPHATICS: No lymph nodes palpable in the axilla and neck DERMATOLOGICAL: Dryness of the skin on lower extremity and wounds of the left jasmine INVESTIGATIONS, reviewed in the clinical context: White count 8.5 hemoglobin 15.9 platelets 221 potassium 4.4 bun 57 creatinine 1.8 to Lactic acid 2.3 EKG tracing personally reviewed by me-possible A. fib, low-voltage Chest [id number] venous prominence Assessment: - acute on chronic congestive heart failure exacerbation, EF not known, -Left anterior chest wall pain following a session of blowing his nose, likely musculoskeletal. Pain is reproducible, POA -Persistent atrial fibrillation, rate controlled -Morbid obesity BMI 74.4 -Chronic medical debility due to superobesity -Bilateral lower extremity superficial wounds , as the patient to begin improving secondary to venous insufficiency -Essential hypertension -GERD -Diabetes mellitus type 2 -Chronic kidney disease stage III likely combination of diabetic nephropathy and hypertensive nephrosclerosis Plan: We'll start the patient on Lasix drip. Follow I's and O's. Wound care is to continue. Other home medications to continue. Patient's presentation does not appear to be cardiac in terms of the pain. We will get the cardiology opinion. Discussed with the patient. Past Medical History Past Medical History: Atrial Fibrillation, Heart Failure, Diabetes Mellitus, GERD/Reflux, Hypertension, Renal Disease, Skin Disorder Additional Past Medical History / Comment(s): Pt recently admitted to [facility] on 11/12/19 with acute CHF/tracheobronchitis. Other hx: Home oxygen at 3L/NC ATC, chronic Afib, NIDDM type II, neuropathy to bilateral feet, CKD stage III, chronic bilateral leg lymphadema with R leg weeping, current sore lower L leg- wrapped, past chronic lower extremity wounds/venous insufficiency, January 2019 severe cellulitis with multiple organisms bilateral lower legs/groin/scrotum with septic shock and UTI, past wounds on hips/buttocks, past upper GI bleed d/t coumadin/anemia, multiple gastric ulcers-duodenal and antral, hypothyroid. History of Any Multi-Drug Resistant Organisms: MRSA, Other MDRO Date of last positivie culture/infection: 08/21/17 MRSA MDRO Source:: leg rt Past Surgical History: Orthopedic Surgery Additional Past Surgical History / Comment(s): EGD, bilateral feet surgery for fractures/pins/pins since removed, lower leg wounds I&Ds. Past Anesthesia/Blood Transfusion Reactions: No Reported Reaction Additional Past Anesthesia/Blood Transfusion Reaction / Comment(s): Pt has received blood in past without reaction. Smoking Status: Former smoker - Past Family History Father Family Medical History: Diabetes Mellitus, Deep Vein Thrombosis (DVT) Additional Family Medical History / Comment(s): both legs amputated due to blood clots Mother Family Medical History: Deep Vein Thrombosis (DVT), Vascular Disorder Additional Family Medical History / Comment(s): lost both of legs, blood clot surgeries, stent in leg, carotid endardectomy Medications and Allergies Home Medications Medication Instructions Recorded Confirmed Type Hydrocodone/Acetaminophen [Risco 1 tab PO Q6H PRN 10/12/16 11/26/19 History 10-325] Pantoprazole Sodium [Protonix] 40 mg PO DAILY #30 tablet.dr 11/10/16 11/26/19 Rx Allopurinol [Zyloprim] 300 mg PO DAILY 10/21/18 11/26/19 History Ammonium Lactate Lotion 1 applic TOPICAL BID PRN 10/21/18 11/26/19 History [Lac-Hydrin 12% Lotion] Ergocalciferol (Vitamin D2) 50,000 unit PO MO 10/21/18 11/26/19 History [Drisdol] Ferrous Sulfate [Iron (65 MG 325 mg PO BID 10/21/18 11/26/19 History Elemental)] Nystatin [Nystop] 1 applic TOPICAL BID PRN 02/12/19 11/26/19 History Torsemide [Demadex] 20 mg PO BID #60 tab 02/25/19 11/26/19 Rx Levothyroxine Sodium [Synthroid] 125 mcg PO DAILY 11/12/19 11/26/19 History Methylphenidate HCl 20 mg PO DAILY 11/12/19 11/26/19 History Metoprolol Tartrate [Lopressor] 25 mg PO BID 11/12/19 11/26/19 History Atorvastatin [Lipitor] 40 mg PO HS #30 tab 11/15/19 11/26/19 Rx Glimepiride [Amaryl] 4 mg PO DAILY 11/26/19 11/26/19 History Allergies Allergy/AdvReac Type Severity Reaction Status Date / Time warfarin [From Coumadin] AdvReac caused GI Verified 11/12/19 11:12 bleed, affected kidney function wool AdvReac Unknown Verified 11/12/19 11:12 Physical Exam Vitals: Vital Signs Temp Pulse Pulse Resp BP BP Pulse Ox 11/26/19 14:20 97.2 F L 75 18 113/72 96 11/26/19 14:02 20 11/26/19 14:00 130 H 16 161/113 95 11/26/19 13:30 138 H 19 141/110 94 L 11/26/19 13:00 130 H 20 158/118 96 11/26/19 12:30 130/91 95 11/26/19 12:00 146 H 18 128/107 95 11/26/19 11:57 125 H 11/26/19 11:34 133 H 11/26/19 11:30 120 H 16 113/94 95 11/26/19 11:00 121 H 16 114/65 95 11/26/19 10:50 119 H 20 113/94 94 L 11/26/19 10:30 105 H 18 121/88 94 L 11/26/19 10:00 134 H 17 119/90 95 11/26/19 09:50 120 H 20 114/65 94 L 11/26/19 09:30 125 H 19 112/96 94 L 11/26/19 09:05 133 H 11/26/19 09:00 114 H 20 122/84 11/26/19 08:51 133 H 11/26/19 08:50 20 96 11/26/19 08:47 133 H 20 95 11/26/19 08:43 97.9 F 114 H 22 122/84 96 Intake and Output 11/26/19 11/26/19 11/26/19 06:59 14:59 22:59 Intake Total 83.5 Balance 83.5 Intake: Intake, IV Titration 83.5 Amount Furosemide 100 mg In 83.5 Sodium Chloride 0.9% 90 ml @ 10 MG/HR 10 mls/hr IV .Q10H [facility] Rx#: [id number] Other: Voiding Method Diaper # Voids 2 # Bowel Movements 1 Weight 269.887 kg 269.887 kg Results CBC & Chem 7: 11/26/19 08:57 11/26/19 08:57 Labs: Abnormal Lab Results - Last 24 Hours (Table) 11/26/19 11/26/19 11/26/19 Range/Units 08:57 08:57 08:57 Hct 53.9 H (39.0-53.0) % MCHC 29.5 L (31.0-37.0) g/dL RDW 17.4 H (11.5-15.5) % Lymphocytes # 0.7 L (1.0-4.8) k/uL PT 12.1 H (9.0-12.0) sec INR 1.2 H (<1.2) VBG pH (7.31-7.41) VBG pCO2 (37-51) mmHg VBG HCO3 (24-28) mmol/L Sodium 136 L (137-145) mmol/L Chloride 90 L (98-107) mmol/L Carbon Dioxide 35 H (22-30) mmol/L BUN 57 H (9-20) mg/dL Creatinine 1.82 H (0.66-1.25) mg/dL Glucose 129 H (74-99) mg/dL POC Glucose (mg/dL) (75-99) mg/dL Plasma Lactic Acid Chong (0.7-2.0) mmol/L Total Bilirubin 2.1 H (0.2-1.3) mg/dL Alkaline Phosphatase 328 H (38-126) U/L Creatine Kinase 24 L (55-170) U/L Albumin 3.4 L (3.5-5.0) g/dL 11/26/19 11/26/19 11/26/19 Range/Units 08:57 08:57 14:21 Hct (39.0-53.0) % MCHC (31.0-37.0) g/dL RDW (11.5-15.5) % Lymphocytes # (1.0-4.8) k/uL PT (9.0-12.0) sec INR (<1.2) VBG pH 7.26 L (7.31-7.41) VBG pCO2 84 H* (37-51) mmHg VBG HCO3 37 H (24-28) mmol/L Sodium (137-145) mmol/L Chloride (98-107) mmol/L Carbon Dioxide (22-30) mmol/L BUN (9-20) mg/dL Creatinine (0.66-1.25) mg/dL Glucose (74-99) mg/dL POC Glucose (mg/dL) (75-99) mg/dL Plasma Lactic Acid Chong 2.3 H* 2.3 H* (0.7-2.0) mmol/L Total Bilirubin (0.2-1.3) mg/dL Alkaline Phosphatase (38-126) U/L Creatine Kinase (55-170) U/L Albumin (3.5-5.0) g/dL 11/26/19 11/26/19 11/26/19 Range/Units 17:04 18:42 21:04 Hct (39.0-53.0) % MCHC (31.0-37.0) g/dL RDW (11.5-15.5) % Lymphocytes # (1.0-4.8) k/uL PT (9.0-12.0) sec INR (<1.2) VBG pH (7.31-7.41) VBG pCO2 (37-51) mmHg VBG HCO3 (24-28) mmol/L Sodium (137-145) mmol/L Chloride (98-107) mmol/L Carbon Dioxide (22-30) mmol/L BUN (9-20) mg/dL Creatinine (0.66-1.25) mg/dL Glucose (74-99) mg/dL POC Glucose (mg/dL) 186 H 258 H (75-99) mg/dL Plasma Lactic Acid Chong 3.7 H* (0.7-2.0) mmol/L Total Bilirubin (0.2-1.3) mg/dL Alkaline Phosphatase (38-126) U/L Creatine Kinase (55-170) U/L Albumin (3.5-5.0) g/dL Thrombosis Risk Factor Assmnt - Choose All That Apply Any of the Below Risk Factors Present?: Yes Each Factor Represents 1 point: Age 41-60 years, Heart failure (<1month), Obesity (BMI >25), Serious lung disease incl. pneumonia (< 1month) Other Risk Factors: Yes Other congenital or acquired thrombophilia - If yes, enter type in comment: No Thrombosis Risk Factor Assessment Total Risk Factor Score: 4 Thrombosis Risk Factor Assessment Level: Moderate Risk
[2019-11-27] MEDS: FUROSEMIDE 100 MG in SODIUM CHLORIDE 0.9% 90 ML IV SCH ×2 (03:55→14:10)
[2019-11-27] MEDS: HYDROcodone/APAP 10-325MG 1 EACH TAB PO PRN ×3 (04:12→18:14)
[2019-11-27 06:12] LABS: Glucose,Whole Blood 139 mg/dL (75-99)
[2019-11-27] MEDS: LEVOTHYROXINE 125 MCG TAB PO SCH (06:47)
[2019-11-27] MEDS: PANTOPRAZOLE 40 MG TABLET PO SCH (06:47)
[2019-11-27 07:03] LABS: Calcium 8.8 mg/dL (8.4-10.2); Potassium 4.6 mmol/L (3.5-5.1)
--- NOTE | 2019-11-27 09:42 | P.CONS ---
History of Present Illness - Reason for Consult Consult date: 11/27/19 Wound care - History of Present Illness This is a 54-year-old patient being seen on 3 [facility] for wound care. Patient states that after his last hospitalization when he was discharged he hit his left posterior leg on the wheelchair causing a ulceration. Patient has been utilizing Aquasol Silver at home with good results. He does have lymphedema with drainage to bilateral lower extremities. Patient states that he is con trolling the ulcerations at home and with his primary care doc without any difficulties. Patient declines any further treatment at this time. Patient's past medical history is significant for atrial fibrillation, diabetes, acid reflux, hypertension, stage III chronic kidney disease, hypothyroidism and lymphedema. Review of Systems Review Of Systems: Constitutional: No fever, no chills, no night sweats. No weight change. No weakness, fatigue or lethargy. No daytime sleepiness. Integumentary:reports wounds, no lesions. No rash or pruritus. No unusual brui sing. No change in hair or nails. Past Medical History Past Medical History: Atrial Fibrillation, Heart Failure, Diabetes Mellitus, GERD/Reflux, Hypertension, Renal Disease, Skin Disorder Additional Past Medical History / Comment(s): Pt recently admitted to [facility] on 11/12/19 with acute CHF/tracheobronchitis. Other hx: Home oxygen at 3L/NC ATC, chronic Afib, NIDDM type II, neuropathy to bilateral feet, CKD stage III, chronic bilateral leg lymphadema with R leg weeping, current sore lower L leg- wrapped, past chronic lower extremity wounds/venous insufficiency, January 2019 severe cellulitis with multiple organisms bilateral lower legs/groin/scrotum with septic shock and UTI, past wounds on hips/buttocks, past upper GI bleed d/t coumadin/anemia, multiple gastric ulcers-duodenal and antral, hypothyroid. History of Any Multi-Drug Resistant Organisms: MRSA, Other MDRO Year Discovered:: 08/21/17 MRSA MDRO Source:: leg rt Past Surgical History: Orthopedic Surgery Additional Past Surgical History / Comment(s): EGD, bilateral feet surgery for fractures/pins/pins since removed, lower leg wounds I&Ds. Past Anesthesia/Blood Transfusion Reactions: No Reported Reaction Additional Past Anesthesia/Blood Transfusion Reaction / Comm: Pt has received blood in past without reaction. Smoking Status: Former smoker - Past Family History Father Family Medical History: Diabetes Mellitus, Deep Vein Thrombosis (DVT) Additional Family Medical History / Comment(s): both legs amputated due to blood clots Mother Family Medical History: Deep Vein Thrombosis (DVT), Vascular Disorder Additional Family Medical History / Comment(s): lost both of legs, blood clot surgeries, stent in leg, carotid endardectomy Medications and Allergies Home Medications Medication Instructions Recorded Confirmed Type Hydrocodone/Acetaminophen [Willard 1 tab PO Q6H PRN 10/12/16 11/26/19 History 10-325] Pantoprazole Sodium [Protonix] 40 mg PO DAILY #30 tablet. 11/10/16 11/26/19 Rx Allopurinol [Zyloprim] 300 mg PO DAILY 10/21/18 11/26/19 History Ammonium Lactate Lotion 1 applic TOPICAL BID PRN 10/21/18 11/26/19 History [Lac-Hydrin 12% Lotion] Ergocalciferol (Vitamin D2) 50,000 unit PO MO 10/21/18 11/26/19 History [Drisdol] Ferrous Sulfate [Iron (65 MG 325 mg PO BID 10/21/18 11/26/19 History Elemental)] Nystatin [Nystop] 1 applic TOPICAL BID PRN 02/12/19 11/26/19 History Torsemide [Demadex] 20 mg PO BID #60 tab 02/25/19 11/26/19 Rx Levothyroxine Sodium [Synthroid] 125 mcg PO DAILY 11/12/19 11/26/19 History Methylphenidate HCl 20 mg PO DAILY 11/12/19 11/26/19 History Metoprolol Tartrate [Lopressor] 25 mg PO BID 11/12/19 11/26/19 History Atorvastatin [Lipitor] 40 mg PO HS #30 tab 11/15/19 11/26/19 Rx Glimepiride [Amaryl] 4 mg PO DAILY 11/26/19 11/26/19 History Allergies Allergy/AdvReac Type Severity Reaction Status Date / Time warfarin [From Coumadin] AdvReac caused GI Verified 11/12/19 11:12 bleed, affected kidney function wool AdvReac Unknown Verified 11/12/19 11:12 Physical Exam Vitals: Vital Signs Temp Pulse Pulse Resp BP BP Pulse Ox 11/27/19 04:00 97.4 F L 86 16 117/82 93 L 11/27/19 00:00 98.0 F 72 18 117/56 93 L 11/26/19 20:00 97.6 F 116 H 18 136/64 96 11/26/19 14:20 97.2 F L 75 18 113/72 96 11/26/19 14:02 20 11/26/19 14:00 130 H 16 161/113 95 11/26/19 13:30 138 H 19 141/110 94 L 11/26/19 13:00 130 H 20 158/118 96 11/26/19 12:30 130/91 95 11/26/19 12:00 146 H 18 128/107 95 11/26/19 11:57 125 H 11/26/19 11:34 133 H 11/26/19 11:30 120 H 16 113/94 95 11/26/19 11:00 121 H 16 114/65 95 11/26/19 10:50 119 H 20 113/94 94 L 11/26/19 10:30 105 H 18 121/88 94 L 11/26/19 10:00 134 H 17 119/90 95 11/26/19 09:50 120 H 20 114/65 94 L Intake and Output 11/26/19 11/27/19 11/27/19 22:59 06:59 14:59 Intake Total 83.5 68.5 Balance 83.5 68.5 Intake: Intake, IV Titration 83.5 68.5 Amount Furosemide 100 mg In 83.5 68.5 Sodium Chloride 0.9% 90 ml @ 10 MG/HR 10 mls/hr IV .Q10H [facility] Rx#: [id number] Other: Voiding Method Diaper Diaper # Voids 2 1 # Bowel Movements 1 Weight 269.887 kg 274.6 kg Physical exam: General Appearance: Alert, cooperative, no distress, appears stated age. Skin: Ulceration to left anterior leg approximately 2 x 2 x 0.2 cm, fat layer exposure, wound that shows granulation throughout minimal slough noted. No tunneling or undermining noted. Significant edema to bilateral lower extremities with scaly dry skin all other Skin color, texture, tugor decreased no rashes or lesions. Neurologic: Alert oriented x3 Results CBC & Chem 7: 11/26/19 08:57 11/27/19 06:16 Labs: Abnormal Lab Results - Last 24 Hours (Table) 11/26/19 11/26/19 11/26/19 Range/Units 08:57 08:57 08:57 PT 12.1 H (9.0-12.0) sec INR 1.2 H (<1.2) VBG pH 7.26 L (7.31-7.41) VBG pCO2 84 H* (37-51) mmHg VBG HCO3 37 H (24-28) mmol/L Sodium 136 L (137-145) mmol/L Chloride 90 L (98-107) mmol/L Carbon Dioxide 35 H (22-30) mmol/L BUN 57 H (9-20) mg/dL Creatinine 1.82 H (0.66-1.25) mg/dL Glucose 129 H (74-99) mg/dL POC Glucose (mg/dL) (75-99) mg/dL Plasma Lactic Acid Chong (0.7-2.0) mmol/L Total Bilirubin 2.1 H (0.2-1.3) mg/dL Alkaline Phosphatase 328 H (38-126) U/L Creatine Kinase 24 L (55-170) U/L Albumin 3.4 L (3.5-5.0) g/dL 11/26/19 11/26/19 11/26/19 Range/Units 08:57 14:21 17:04 PT (9.0-12.0) sec INR (<1.2) VBG pH (7.31-7.41) VBG pCO2 (37-51) mmHg VBG HCO3 (24-28) mmol/L Sodium (137-145) mmol/L Chloride (98-107) mmol/L Carbon Dioxide (22-30) mmol/L BUN (9-20) mg/dL Creatinine (0.66-1.25) mg/dL Glucose (74-99) mg/dL POC Glucose (mg/dL) 186 H (75-99) mg/dL Plasma Lactic Acid Chong 2.3 H* 2.3 H* (0.7-2.0) mmol/L Total Bilirubin (0.2-1.3) mg/dL Alkaline Phosphatase (38-126) U/L Creatine Kinase (55-170) U/L Albumin (3.5-5.0) g/dL 11/26/19 11/26/19 11/27/19 Range/Units 18:42 21:04 06:10 PT (9.0-12.0) sec INR (<1.2) VBG pH (7.31-7.41) VBG pCO2 (37-51) mmHg VBG HCO3 (24-28) mmol/L Sodium (137-145) mmol/L Chloride (98-107) mmol/L Carbon Dioxide (22-30) mmol/L BUN (9-20) mg/dL Creatinine (0.66-1.25) mg/dL Glucose (74-99) mg/dL POC Glucose (mg/dL) 258 H 139 H (75-99) mg/dL Plasma Lactic Acid Chong 3.7 H* (0.7-2.0) mmol/L Total Bilirubin (0.2-1.3) mg/dL Alkaline Phosphatase (38-126) U/L Creatine Kinase (55-170) U/L Albumin (3.5-5.0) g/dL 11/27/19 Range/Units 06:16 PT (9.0-12.0) sec INR (<1.2) VBG pH (7.31-7.41) VBG pCO2 (37-51) mmHg VBG HCO3 (24-28) mmol/L Sodium 135 L (137-145) mmol/L Chloride 92 L (98-107) mmol/L Carbon Dioxide 33 H (22-30) mmol/L BUN 59 H (9-20) mg/dL Creatinine 2.07 H (0.66-1.25) mg/dL Glucose 122 H (74-99) mg/dL POC Glucose (mg/dL) (75-99) mg/dL Plasma Lactic Acid Chong (0.7-2.0) mmol/L Total Bilirubin (0.2-1.3) mg/dL Alkaline Phosphatase (38-126) U/L Creatine Kinase (55-170) U/L Albumin (3.5-5.0) g/dL Assessment and Plan (1) Non-pressure chronic ulcer of left calf with fat layer exposed Current Visit: Yes Status: Acute Code(s): L97.222 - NON-PRESSURE CHRONIC ULCER OF LEFT CALF W FAT LAYER EXPOSED SNOMED Code(s): 08537522940840352 (2) Morbid obesity Current Visit: Yes Status: Acute Code(s): E66.01 - MORBID (SEVERE) OBESITY DUE TO EXCESS CALORIES SNOMED Code(s): 732220643 (3) Lymphedema of both lower extremities Current Visit: No Status: Acute Code(s): I89.0 - LYMPHEDEMA, NOT ELSEWHERE CLASSIFIED SNOMED Code(s): 90025790088382557 Plan: Apply absorptive silver dry, ADD, and rolled gauze and secure with a compression wrap. Change Sunday. Patient declined further outpatient treatment. He receives his products from his primary care physician. Apply bag balm to bilateral lower extremities for dryness and irritation. Thank you for the consultation. Any questions please contact the wound care center DNP note has been reviewed and discussed with Dr. Elias and the impression and plan of care has been directed as dictated.
[2019-11-27] MEDS: FERROUS SULFATE 325 MG TAB PO SCH ×2 (10:21→20:47)
[2019-11-27] MEDS: METOPROLOL TARTRATE 25 MG TAB PO SCH ×2 (10:21→20:47)
[2019-11-27] MEDS: ALLOPURINOL 300 MG TAB PO SCH (10:21)
[2019-11-27] MEDS: METHYLPHENIDATE HCL 10 MG TAB PO SCH (10:21)
[2019-11-27] MEDS: ENOXAPARIN 40 MG/0.4 ML SYRINGE SQ SCH (10:23)
[2019-11-27] MEDS: GLIMEPIRIDE 4 MG TAB PO SCH (10:26)
[2019-11-27 11:42] LABS: Glucose,Whole Blood 115 mg/dL (75-99)
[2019-11-27 11:48] VITALS: BMI 75.6
[2019-11-27] MEDS: PETROLAT,WHITE/LAN/8-HYDROXYQU 227 GM OINT TOPICAL SCH (12:18)
--- NOTE | 2019-11-27 16:21 | P.PN ---
Progress Note - Text Progress Note Date: 11/27/19 Chief Complaint: Short of breath History of presenting complaint: This is a pleasant 54-year-old patient of visiting physician Dr. Yuri Atwood. Patient was here in January of last year with extended hospital stay. Patient was then admitted with severe cellulitis with multiple organisms including both lower extremities groin scrotal area. He then also had septic shock. Also had a UTI. Chronic stable medical conditions include chronic medical debility, diabetes, GERD, hypertension, chronic kidney disease diabetic nephropathy, bilateral chronic lower extremity wounds which is cared for by son and hypothyroidism atrial fibrillation. Recently admitted with CHF exacerbation. Responded well to Lasix drip. Patient now presents with patient was trying hard to blowing his nose. He managed to blow out significant amount of clotted blood goop he described. At the same time developed sharp pain in the left precordial area. The pain was present off and on most of the night. Pain is reproducible. Did not radiate to the to the neck or arms. Patient's breathing is not too different from his baseline.. Has chronic lower action be swallowing and wounds. No fever or chills. Admitted with CHF exacerbation, possibly musculoskeletal left chest wall. Pain. Started on IV Lasix drip. Today-feeling a bit better. Left anterior chest wall pain still present reproducible. Tolerating a diet. Review of systems: Was done for constitutional, cardiovascular, GI, pulmonary. relevant finding as above Active Medications Hydrocodone Bitart/Acetaminophen ([place] 10) 1 each PO Q6H PRN PRN Reason: Pain Last Admin: 11/27/19 12:19 Dose: 1 each Documented by: Allopurinol (Zyloprim) 300 mg PO DAILY [facility] Last Admin: 11/27/19 10:21 Dose: 300 mg Documented by: Atorvastatin Calcium (Lipitor) 40 mg PO HS [facility] Last Admin: 11/26/19 20:49 Dose: 40 mg Documented by: Enoxaparin Sodium (Lovenox) 40 mg SQ DAILY [facility] Last Admin: 11/27/19 10:23 Dose: 40 mg Documented by: Ergocalciferol (Vitamin D2) 50,000 unit PO MO [facility] Ferrous Sulfate (Feosol) 325 mg PO BID [facility] Last Admin: 11/27/19 10:21 Dose: 325 mg Documented by: Glimepiride (Amaryl) 4 mg PO DAILY [facility] Last Admin: 11/27/19 10:26 Dose: 4 mg Documented by: Hydroxyquinoline/Petrolatum/Lanolin (Bag [place]) 1 gm TOPICAL DAILY [facility] Last Admin: 11/27/19 12:18 Dose: 1 gm Documented by: Furosemide 100 mg/ Sodium (Chloride) 100 mls @ 10 mls/hr IV .Q10H [facility] Last Admin: 11/27/19 14:10 Dose: 10 mg/hr, 10 mls/hr Documented by: Lactic Acid (Lac-Hydrin 12%) 1 applic TOPICAL BID PRN PRN Reason: Skin Irritation Levothyroxine Sodium (Synthroid) 125 mcg PO DAILY@0630 [facility] Last Admin: 11/27/19 06:47 Dose: 125 mcg Documented by: Methylphenidate HCl (Ritalin) 20 mg PO DAILY [facility] Last Admin: 11/27/19 10:21 Dose: 20 mg Documented by: Metoprolol Tartrate (Lopressor) 25 mg PO BID [facility] Last Admin: 11/27/19 10:21 Dose: 25 mg Documented by: Nystatin (Mycostatin Powder) 1 applic TOPICAL BID PRN PRN Reason: Skin Irritation Pantoprazole Sodium (Protonix) 40 mg PO AC-BRKFST [facility] Last Admin: 11/27/19 06:47 Dose: 40 mg Documented by: Physical examination: VITAL SIGNS: 97.5, 66, 18, 135/79, 93% on 4 L GENERAL: Propped up in bed, awake EYES: Pupils equal. Conjunctiva normal. HEENT: External appearance of nose and ears normal, oral cavity grossly normal. NECK: Short and thick, JVD unable to assess mass not palpable. HEART: Heart sounds are muffled; edema present. LUNGS:[ Respiratory rate increased; diminished breath sounds. MUSCULOSKELETAL: Reproducible left anterior chest wall pain ABDOMEN: Soft, nontender, liver spleen not palpable, no masses palpable. PSYCH: Alert and oriented x3; mood and affect normal. DERMATOLOGICAL: Dryness of the skin on lower extremity and wounds of the left jasmine INVESTIGATIONS, reviewed in the clinical context: Potassium 4.6 by cup 33 bun 59 creatinine 2.07 Previous testing White count 8.5 hemoglobin 15.9 platelets 221 potassium 4.4 bun 57 creatinine 1.8 to Lactic acid 2.3 EKG tracing personally reviewed by me-possible Angeline fib, low-voltage Chest [id number] venous prominence Assessment: - acute on chronic congestive heart failure exacerbation, improved -Left anterior chest wall pain following a session of blowing his nose, likely musculoskeletal. Pain is reproducible, POA -Persistent atrial fibrillation, rate controlled -Morbid obesity BMI 74.4 -Chronic medical debility due to superobesity -Bilateral lower extremity superficial wounds , as the patient to begin improving secondary to venous insufficiency -Essential hypertension -GERD -Diabetes mellitus type 2 -Chronic kidney disease stage III likely combination of diabetic nephropathy and hypertensive nephrosclerosis Plan: Change to by mouth Lasix. Repeat labs in the morning. Hopefully can be discharged tomorrow. Put back on Demadex starting tomorrow.
[2019-11-27 16:53] LABS: Glucose,Whole Blood 88 mg/dL (75-99)
[2019-11-27 20:05] LABS: Glucose,Whole Blood 191 mg/dL (75-99)
[2019-11-27] MEDS: ATORVASTATIN 40 MG TAB PO SCH (20:47)
[2019-11-28] MEDS: HYDROcodone/APAP 10-325MG 1 EACH TAB PO PRN ×3 (00:38→21:18)
[2019-11-28] MEDS: PANTOPRAZOLE 40 MG TABLET PO SCH (06:11)
[2019-11-28] MEDS: LEVOTHYROXINE 125 MCG TAB PO SCH (06:11)
[2019-11-28 06:57] LABS: Glucose,Whole Blood 103 mg/dL (75-99)
--- NOTE | 2019-11-28 09:20 | P.CRDCN ---
History of Present Illness Consult date: 11/28/19 Requesting physician: Sam Canas Reason for Consult (text): chest pain Chief complaint: chest pain History of present illness: Supplement 54-year-old gentleman with a past medical history significant for chronic atrial fibrillation, significant duodenal ulcers with GI bleeding in the past, diabetes, hypertension, chronic lymphedema, morbid obesity, chronic renal failure and chronic heart failure with preserved ejection fraction. He does not follow with a toe former stitchdowns as he is homebound due to his poor mobility secondary to morbid obesity. He is followed at home by a visiting physician. He was recently admitted to the hospital with symptoms of cough and shortness of breath and was treated with IV Lasix drip. He presented this admission 2 days ago with complaints of left-sided chest discomfort. Apparently he was sitting up in bed and blew his nose and subsequently developed some left-sided chest discomfort, worse with palpation and certain movements. The pain continued through yesterday but seems better this morning after taking hydrocodone. Continues to be very tender to palpation. Chest x-ray on admission impression to correlate for CHF with bilateral infiltrate and small effusion stable in appearance. NT proBNP is elevated at 1480 which is up from previous admission at which time is 1370. On admission BUN was 57 creatinine 1.8 to labs yesterday showed a BUN of 59 and creatinine 2.07. Patient had been on a IV Lasix drip is currently on Lasix 20 mg by mouth twice a day. No labs are available from this morning. EKG on admission showed atrial fibrillation with ventricular rate of 117, EKG is of poor quality but there is no obvious evidence of acute ischemia. Troponin levels were negative 3. Past Medical History Past Medical History: Atrial Fibrillation, Heart Failure, Diabetes Mellitus, GERD/Reflux, Hypertension, Renal Disease, Skin Disorder Additional Past Medical History / Comment(s): Pt recently admitted to [facility] on 11/12/19 with acute CHF/tracheobronchitis. Other hx: Home oxygen at 3L/[place] ATC, chronic Afib, NIDDM type II, neuropathy to bilateral feet, CKD stage III, chronic bilateral leg lymphadema with R leg weeping, current sore lower L leg- wrapped, past chronic lower extremity wounds/venous insufficiency, January 2019 severe cellulitis with multiple organisms bilateral lower legs/groin/scrotum with septic shock and UTI, past wounds on hips/buttocks, past upper GI bleed d/t coumadin/anemia, multiple gastric ulcers-duodenal and antral, hypothyroid. History of Any Multi-Drug Resistant Organisms: MRSA, Other MDRO Date of last positivie culture/infection: 08/21/17 MRSA MDRO Source:: leg rt Past Surgical History: Orthopedic Surgery Additional Past Surgical History / Comment(s): EGD, bilateral feet surgery for fractures/pins/pins since removed, lower leg wounds I&Ds. Past Anesthesia/Blood Transfusion Reactions: No Reported Reaction Additional Past Anesthesia/Blood Transfusion Reaction / Comment(s): Pt has received blood in past without reaction. Smoking Status: Former smoker - Past Family History Father Family Medical History: Diabetes Mellitus, Deep Vein Thrombosis (DVT) Additional Family Medical History / Comment(s): both legs amputated due to blood clots Mother Family Medical History: Deep Vein Thrombosis (DVT), Vascular Disorder Additional Family Medical History / Comment(s): lost both of legs, blood clot surgeries, stent in leg, carotid endardectomy Medications and Allergies Home Medications Medication Instructions Recorded Confirmed Type Hydrocodone/Acetaminophen [[place] 1 tab PO Q6H PRN 10/12/16 11/26/19 History 10-325] Pantoprazole Sodium [Protonix] 40 mg PO DAILY #30 tablet. 11/10/16 11/26/19 Rx Allopurinol [Zyloprim] 300 mg PO DAILY 10/21/18 11/26/19 History Ammonium Lactate Lotion 1 applic TOPICAL BID PRN 10/21/18 11/26/19 History [Lac-Hydrin 12% Lotion] Ergocalciferol (Vitamin D2) 50,000 unit PO MO 10/21/18 11/26/19 History [Drisdol] Ferrous Sulfate [Iron (65 MG 325 mg PO BID 10/21/18 11/26/19 History Elemental)] Nystatin [Nystop] 1 applic TOPICAL BID PRN 02/12/19 11/26/19 History Torsemide [Demadex] 20 mg PO BID #60 tab 02/25/19 11/26/19 Rx Levothyroxine Sodium [Synthroid] 125 mcg PO DAILY 11/12/19 11/26/19 History Methylphenidate HCl 20 mg PO DAILY 11/12/19 11/26/19 History Metoprolol Tartrate [Lopressor] 25 mg PO BID 11/12/19 11/26/19 History Atorvastatin [Lipitor] 40 mg PO HS #30 tab 11/15/19 11/26/19 Rx Glimepiride [Amaryl] 4 mg PO DAILY 11/26/19 11/26/19 History Allergies Allergy/AdvReac Type Severity Reaction Status Date / Time warfarin [From Coumadin] AdvReac caused GI Verified 11/12/19 11:12 bleed, affected kidney function wool AdvReac Unknown Verified 11/12/19 11:12 Physical Exam Vitals: Vital Signs Temp Pulse Resp BP Pulse Ox 11/28/19 04:00 98.2 F 89 16 119/73 91 L 11/27/19 23:54 98 18 11/27/19 23:50 97.9 F 98 18 99/62 92 L 11/27/19 20:00 98.0 F 71 18 138/86 91 L 11/27/19 15:15 97.5 F L 90 18 121/83 93 L 11/27/19 11:30 97.5 F L 66 18 135/79 93 L Intake and Output 11/27/19 11/28/19 11/28/19 22:59 06:59 14:59 Intake Total 420 300 Balance 420 300 Intake: Oral 420 300 Other: Voiding Method Diaper Diaper # Voids 1 3 Weight 275.6 kg PHYSICAL EXAMINATION: HEENT: Head is atraumatic, normocephalic. Pupils equal, round. Neck is supple. There is no elevated jugular venous pressure. HEART EXAMINATION: Heart sounds irregularly irregular, distant, S1 and S2 normal. No murmur or gallop heard. CHEST EXAMINATION: Lungs are diminished anteriorly. Significant chest wall tenderness on palpation noted under left breast. ABDOMEN: Soft, obese, nontender. Bowel sounds are heard. No organomegaly noted. EXTREMITIES: Evidence of mild to moderate peripheral edema with chronic skin changes secondary to venous insufficiency noted. NEUROLOGIC patient is awake, alert and oriented x3. . Results 11/26/19 08:57 11/27/19 06:16 Current Medications Generic Name Dose Route Start Last Admin Trade Name Freq PRN Reason Stop Dose Admin Hydrocodone Bitart/Acetaminophen 1 each 11/26/19 11:20 11/28/19 00:38 [place] 10 PO 1 each Q6H PRN Administration Pain Allopurinol 300 mg 11/27/19 09:00 11/27/19 10:21 Zyloprim PO 300 mg DAILY [facility] Administration Atorvastatin Calcium 40 mg 11/26/19 21:00 11/27/19 20:47 Lipitor PO 40 mg HS [facility] Administration Enoxaparin Sodium 40 mg 11/27/19 09:00 11/27/19 10:23 Lovenox SQ 40 mg DAILY [facility] Administration Ergocalciferol 50,000 unit 12/01/19 09:00 Vitamin D2 PO MO [facility] Ferrous Sulfate 325 mg 11/26/19 21:00 11/27/19 20:47 Feosol PO 325 mg BID [facility] Administration Furosemide 20 mg 11/28/19 09:00 Lasix PO BID@0900,1600 [facility] Glimepiride 4 mg 11/27/19 09:00 11/27/19 10:26 Amaryl PO 4 mg DAILY [facility] Administration Hydroxyquinoline/Petrolatum/Lanolin 1 gm 11/27/19 09:45 11/27/19 12:18 Bag [place] TOPICAL 1 gm DAILY [facility] Administration Lactic Acid 1 applic 11/26/19 11:20 Lac-Hydrin 12% TOPICAL BID PRN Skin Irritation Levothyroxine Sodium 125 mcg 11/27/19 06:30 11/28/19 06:11 Synthroid PO 125 mcg DAILY@0630 [facility] Administration Methylphenidate HCl 20 mg 11/27/19 09:00 11/27/19 10:21 Ritalin PO 20 mg DAILY [facility] Administration Metoprolol Tartrate 25 mg 11/26/19 21:00 11/27/19 20:47 Lopressor PO 25 mg BID [facility] Administration Nystatin 1 applic 11/26/19 11:20 Mycostatin Powder TOPICAL BID PRN Skin Irritation Pantoprazole Sodium 40 mg 11/27/19 07:30 11/28/19 06:11 Protonix PO 40 mg AC-BRKFST [facility] Administration Intake and Output 11/27/19 11/28/19 11/28/19 22:59 06:59 14:59 Intake Total 420 300 Balance 420 300 Intake: Oral 420 300 Other: Voiding Method Diaper Diaper # Voids 1 3 Weight 275.6 kg 11/26/19 08:57 11/27/19 06:16 Assessment and Plan Assessment: #1 acute on chronic heart failure with preserved ejection fraction, echocardiogram from October of this year showed normal LV systolic function with ejection fraction greater then 55% with a moderately enlarged RV and mild TR #2 chronic kidney disease #3 chronic atrial fibrillation, not currently anticoagulated secondary to significant GI bleed in the past #4 history of duodenal ulcer with GI bleeding #5 morbid obesity with BMI >75 #6 hypertension #7 diabetes mellitus Plan: From cardiology's perspective, patient's chest discomfort is very atypical and likely secondary to musculoskeletal injury. Heart rates are not well controlled in atrial fibrillation we will increase metoprolol to 25 mg by mouth 3 times a day. We'll continue to follow the patient for further recommendations accordingly. POLITICAL SCIENTIST note has been reviewed, I agree with a documented findings and plan of care. Patient was seen and examined.
[2019-11-28] MEDS: ENOXAPARIN 40 MG/0.4 ML SYRINGE SQ SCH (09:58)
[2019-11-28] MEDS: METHYLPHENIDATE HCL 10 MG TAB PO SCH (09:59)
[2019-11-28] MEDS: FUROSEMIDE 20 MG TAB PO SCH ×2 (09:59→18:30)
[2019-11-28] MEDS: GLIMEPIRIDE 4 MG TAB PO SCH (09:59)
[2019-11-28] MEDS: FERROUS SULFATE 325 MG TAB PO SCH ×2 (09:59→21:18)
[2019-11-28] MEDS: ALLOPURINOL 300 MG TAB PO SCH (09:59)
[2019-11-28] MEDS: METOPROLOL TARTRATE 25 MG TAB PO SCH ×3 (09:59→21:18)
[2019-11-28 11:38] LABS: Glucose,Whole Blood 102 mg/dL (75-99)
[2019-11-28 12:41] LABS: Anisocytosis Slight; Basophils % (A) 1 %; Eosinophils # (A) 0.1 k/uL (0-0.7); Eosinophils % (A) 2 %; HCT 51.1 % (39.0-53.0); HGB 15.5 gm/dL (13.0-17.5); Hypochromasia Marked; Lymphocytes # (A) 0.7 k/uL (1.0-4.8); Lymphocytes % (A) 9 %; MCH 28.6 pg (25.0-35.0); MCHC 30.3 g/dL (31.0-37.0); MCV 94.4 fL (80.0-100.0); Mean Platelet Volume 9.3; Monocytes # (A) 0.5 k/uL (0-1.0); Monocytes % (A) 6 %; Neutrophils # (A) 6.1 k/uL (1.3-7.7); Neutrophils % (A) 81 %; Platelet Count 225 k/uL (150-450); RBC 5.42 m/uL (4.30-5.90); RDW 17.7 % (11.5-15.5); WBC 7.6 k/uL (3.8-10.6)
[2019-11-28 12:58] LABS: Calcium 8.7 mg/dL (8.4-10.2); Potassium 4.9 mmol/L (3.5-5.1)
[2019-11-28 16:38] LABS: Glucose,Whole Blood 77 mg/dL (75-99)
[2019-11-28] MEDS: PETROLAT,WHITE/LAN/8-HYDROXYQU 227 GM OINT TOPICAL SCH (18:30)
--- NOTE | 2019-11-28 20:06 | P.PN ---
Progress Note - Text Progress Note Date: 11/28/19 Chief Complaint: Short of breath History of presenting complaint: This is a pleasant 54-year-old patient of visiting physician Dr. Yuri Atwood. Patient was here in January of last year with extended hospital stay. Patient was then admitted with severe cellulitis with multiple organisms including both lower extremities groin scrotal area. He then also had septic shock. Also had a UTI. Chronic stable medical conditions include chronic medical debility, diabetes, GERD, hypertension, chronic kidney disease diabetic nephropathy, bilateral chronic lower extremity wounds which is cared for by son and hypothyroidism atrial fibrillation. Recently admitted with CHF exacerbation. Responded well to Lasix drip. Patient now presents with patient was trying hard to blowing his nose. He managed to blow out significant amount of clotted blood goop he described. At the same time developed sharp pain in the left precordial area. The pain was present off and on most of the night. Pain is reproducible. Did not radiate to the to the neck or arms. Patient's breathing is not too different from his baseline.. Has chronic lower action be swallowing and wounds. No fever or chills. Admitted with CHF exacerbation, possibly musculoskeletal left chest wall. Pain. Started on IV Lasix drip. Today-breathing improved. On by mouth Lasix. Heart rate goes up in 120s. Beta daniel resumed. Review of systems: Was done for constitutional, cardiovascular, GI, pulmonary. relevant finding as above Active Medications Hydrocodone Bitart/Acetaminophen ([place] 10) 1 each PO Q6H PRN PRN Reason: Pain Last Admin: 11/28/19 14:54 Dose: 1 each Documented by: Allopurinol (Zyloprim) 300 mg PO DAILY [facility] Last Admin: 11/28/19 09:59 Dose: 300 mg Documented by: Atorvastatin Calcium (Lipitor) 40 mg PO HS [facility] Last Admin: 11/27/19 20:47 Dose: 40 mg Documented by: Enoxaparin Sodium (Lovenox) 40 mg SQ DAILY [facility] Last Admin: 11/28/19 09:58 Dose: 40 mg Documented by: Ergocalciferol (Vitamin D2) 50,000 unit PO [facility] Ferrous Sulfate (Feosol) 325 mg PO BID [facility] Last Admin: 11/28/19 09:59 Dose: 325 mg Documented by: Furosemide (Lasix) 20 mg PO BID@0900,1600 [facility] Last Admin: 11/28/19 18:30 Dose: 20 mg Documented by: Glimepiride (Amaryl) 4 mg PO DAILY [facility] Last Admin: 11/28/19 09:59 Dose: 4 mg Documented by: Hydroxyquinoline/Petrolatum/Lanolin (Bag [place]) 1 gm TOPICAL DAILY [facility] Last Admin: 11/28/19 18:30 Dose: 1 gm Documented by: Lactic Acid (Lac-Hydrin 12%) 1 applic TOPICAL BID PRN PRN Reason: Skin Irritation Levothyroxine Sodium (Synthroid) 125 mcg PO DAILY@0630 [facility] Last Admin: 11/28/19 06:11 Dose: 125 mcg Documented by: Methylphenidate HCl (Ritalin) 20 mg PO DAILY [facility] Last Admin: 11/28/19 09:59 Dose: 20 mg Documented by: Metoprolol Tartrate (Lopressor) 25 mg PO TID [facility] Last Admin: 11/28/19 18:26 Dose: 25 mg Documented by: Nystatin (Mycostatin Powder) 1 applic TOPICAL BID PRN PRN Reason: Skin Irritation Pantoprazole Sodium (Protonix) 40 mg PO AC-BRKFST [facility] Last Admin: 11/28/19 06:11 Dose: 40 mg Documented by: Physical examination: VITAL SIGNS: 97.8, 22, 18, 118-72, para 2% on 2 L GENERAL: Propped up in bed, awake EYES: Pupils equal. Conjunctiva normal. HEENT: External appearance of nose and ears normal, oral cavity grossly normal. NECK: Short and thick, JVD unable to assess mass not palpable. HEART: Heart sounds are muffled; edema present. LUNGS:[ Respiratory rate increased; diminished breath sounds. MUSCULOSKELETAL: Reproducible left anterior chest wall pain ABDOMEN: Soft, nontender, liver spleen not palpable, no masses palpable. PSYCH: Alert and oriented x3; mood and affect normal. DERMATOLOGICAL: Dryness of the skin on lower extremity and wounds of the left jasmine INVESTIGATIONS, reviewed in the clinical context: White count 7.6 hemoglobin 15.5 potassium 4.9 bun 63 creatinine 2.18 Previous testing White count 8.5 hemoglobin 15.9 platelets 221 potassium 4.4 bun 57 creatinine 1.8 to Lactic acid 2.3 EKG tracing personally reviewed by me-possible A. fib, low-voltage Chest [id number] venous prominence Assessment: - acute on chronic congestive heart failure exacerbation, improved -Left anterior chest wall pain following a session of blowing his nose, likely musculoskeletal. Pain is reproducible, POA -Persistent atrial fibrillation, rate uncontrolled today -Morbid obesity BMI 74.4 -Chronic medical debility due to superobesity -Bilateral lower extremity superficial wounds , as the patient to begin improving secondary to venous insufficiency -Essential hypertension -GERD -Diabetes mellitus type 2 -Chronic kidney disease stage III likely combination of diabetic nephropathy and hypertensive nephrosclerosis Plan: Keep patient nothing by mouth Lasix. Lopressor started. Discussed at length with the 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 If heart rate and blood pressure remains good, discharge home tomorrow. Wound care instructions as per wound team.
[2019-11-28 20:46] LABS: Glucose,Whole Blood 79 mg/dL (75-99)
[2019-11-28] MEDS: ATORVASTATIN 40 MG TAB PO SCH (21:18)
[2019-11-29 06:11] LABS: Glucose,Whole Blood 89 mg/dL (75-99)
[2019-11-29] MEDS: LEVOTHYROXINE 125 MCG TAB PO SCH (06:13)
[2019-11-29] MEDS: PANTOPRAZOLE 40 MG TABLET PO SCH (06:13)
[2019-11-29] MEDS: HYDROcodone/APAP 10-325MG 1 EACH TAB PO PRN ×3 (06:14→21:07)
[2019-11-29] MEDS: FERROUS SULFATE 325 MG TAB PO SCH ×2 (09:41→21:07)
[2019-11-29] MEDS: METHYLPHENIDATE HCL 10 MG TAB PO SCH (09:41)
[2019-11-29] MEDS: GLIMEPIRIDE 4 MG TAB PO SCH (09:41)
[2019-11-29] MEDS: FUROSEMIDE 20 MG TAB PO SCH ×2 (09:41→18:08)
[2019-11-29] MEDS: PETROLAT,WHITE/LAN/8-HYDROXYQU 227 GM OINT TOPICAL SCH (09:41)
[2019-11-29] MEDS: ENOXAPARIN 40 MG/0.4 ML SYRINGE SQ SCH (09:41)
[2019-11-29] MEDS: ALLOPURINOL 300 MG TAB PO SCH (09:41)
[2019-11-29] MEDS: METOPROLOL TARTRATE 25 MG TAB PO SCH ×3 (09:44→21:07)
[2019-11-29] MEDS ORDERED: SODIUM CHLORIDE 0.65% NASAL SPRAY 44 ML BTL NASAL PRN (11:19)
[2019-11-29 11:55] LABS: Glucose,Whole Blood 97 mg/dL (75-99)
--- NOTE | 2019-11-29 13:04 | P.PN ---
Subjective This is a pleasant 54 showed male past medical history significant for chronic atrial fibrillation, duodenal ulcers causing GI bleeding in the past, diabetes mellitus, hypertension, chronic lymphedema, chronic renal failure, chronic diastolic heart failure and morbid obesity with a BMI of 76. He is seen and examined sitting up in bed with family at the bedside. He continues to be coughing and feels symptoms of shortness of breath. He has ongoing pleuritic chest discomfort. Laboratory data reviewed, WBC 7.6, hemoglobin 15.5, platelets 225, sodium 134, potassium 4.9, creatinine 2.18. Blood pressure 119/79 heart rate 98 afebrile maintaining oxygen saturation on nasal cannula. Currently maintained on atorvastatin 40 mg daily, Lasix 20 mg by mouth twice a day and Lopressor 25 mg 3 times a day. GENERAL: Well-appearing, well-nourished and in no acute distress. Morbidly obese. NECK: Supple without JVD or thyromegaly. LUNGS: Breath sounds clear to auscultation bilaterally. Respiration equal and unlabored. No wheezes, rales or rhonchi. HEART: Irregular rate and rhythm without murmurs, rubs or gallops. S1 and S2 heard. EXTREMITIES: Normal range of motion, moderate bilateral lower extremity edema with chronic venous insufficiency. No clubbing or cyanosis. Peripheral pulses intact. ASSESSMENT Acute on chronic diastolic heart failure Chest pain, atypical with musculoskeletal features. Chronic kidney disease Chronic persistent atrial fibrillation not currently on anticoagulation secondary to GI bleeding in the past History of duodenal ulcer Hypertension Diabetes mellitus Morbid obesity, BMI 76 PLAN Stable from a cardiac perspective. Continue current medical regimen. We will continue to follow as needed, please feel free to call with further questions or concerns. Nurse Practitioner note has been reviewed, I agree with a documented findings and plan of care. Patient was seen and examined. Objective - Vital Signs Vital signs: Vital Signs Temp 97.7 F 11/29/19 08:00 Pulse 98 11/29/19 08:00 Resp 16 11/29/19 08:00 BP 119/79 11/29/19 08:00 Pulse Ox 93 L 11/29/19 08:00 Intake & Output 11/28/19 11/29/19 11/29/19 18:59 06:59 18:59 Intake Total 1440 0 Balance 1440 0 Weight 276.1 kg Intake: Oral 1440 0 Other: Voiding Method Diaper Diaper Diaper # Voids 3 2 0 # Bowel Movements 0 - Labs CBC & Chem 7: 11/28/19 12:21 11/28/19 12:21 Labs: Microbiology - Last 24 Hours (Table) 11/26/19 08:57 Blood Culture - Preliminary Blood No Growth after 72 hours
[2019-11-29 17:07] LABS: Glucose,Whole Blood 73 mg/dL (75-99)
--- NOTE | 2019-11-29 17:46 | P.PN ---
Progress Note - Text Progress Note Date: 11/29/19 Chief Complaint: Short of breath History of presenting complaint: This is a pleasant 54-year-old patient of visiting physician Dr. Yuri Atwood. Patient was here in January of last year with extended hospital stay. Patient was then admitted with severe cellulitis with multiple organisms including both lower extremities groin scrotal area. He then also had septic shock. Also had a UTI. Chronic stable medical conditions include chronic medical debility, diabetes, GERD, hypertension, chronic kidney disease diabetic nephropathy, bilateral chronic lower extremity wounds which is cared for by son and hypothyroidism atrial fibrillation. Recently admitted with CHF exacerbation. Responded well to Lasix drip. Patient now presents with patient was trying hard to blowing his nose. He managed to blow out significant amount of clotted blood goop he described. At the same time developed sharp pain in the left precordial area. The pain was present off and on most of the night. Pain is reproducible. Did not radiate to the to the neck or arms. Patient's breathing is not too different from his baseline.. Has chronic lower action be swallowing and wounds. No fever or chills. Admitted with CHF exacerbation, possibly musculoskeletal left chest wall. Pain. Started on IV Lasix drip. Responded well. Switched to by mouth Lasix. Today-described a stomach upset. Vomiting this morning. A bit tired. Heart rate controlled. Review of systems: Was done for constitutional, cardiovascular, GI, pulmonary. relevant finding as above Active Medications Hydrocodone Bitart/Acetaminophen ([place] 10) 1 each PO Q6H PRN PRN Reason: Pain Last Admin: 11/29/19 13:29 Dose: 1 each Documented by: Allopurinol (Zyloprim) 300 mg PO DAILY [facility] Last Admin: 11/29/19 09:41 Dose: 300 mg Documented by: Atorvastatin Calcium (Lipitor) 40 mg PO HS [facility] Last Admin: 11/28/19 21:18 Dose: 40 mg Documented by: Enoxaparin Sodium (Lovenox) 40 mg SQ DAILY [facility] Last Admin: 11/29/19 09:41 Dose: 40 mg Documented by: Ergocalciferol (Vitamin D2) 50,000 unit PO MO [facility] Ferrous Sulfate (Feosol) 325 mg PO BID [facility] Last Admin: 11/29/19 09:41 Dose: 325 mg Documented by: Furosemide (Lasix) 20 mg PO BID@0900,1600 [facility] Last Admin: 11/29/19 09:41 Dose: 20 mg Documented by: Glimepiride (Amaryl) 4 mg PO DAILY [facility] Last Admin: 11/29/19 09:41 Dose: 4 mg Documented by: Hydroxyquinoline/Petrolatum/Lanolin ([place]) 1 gm TOPICAL DAILY [facility] Last Admin: 11/29/19 09:41 Dose: 1 gm Documented by: Lactic Acid (Lac-Hydrin 12%) 1 applic TOPICAL BID PRN PRN Reason: Skin Irritation Levothyroxine Sodium (Synthroid) 125 mcg PO DAILY@0630 [facility] Last Admin: 11/29/19 06:13 Dose: 125 mcg Documented by: Methylphenidate HCl (Ritalin) 20 mg PO DAILY [facility] Last Admin: 11/29/19 09:41 Dose: 20 mg Documented by: Metoprolol Tartrate (Lopressor) 25 mg PO TID [facility] Last Admin: 11/29/19 09:44 Dose: 25 mg Documented by: Nystatin (Mycostatin Powder) 1 applic TOPICAL BID PRN PRN Reason: Skin Irritation Pantoprazole Sodium (Protonix) 40 mg PO AC-BRKFST [facility] Last Admin: 11/29/19 06:13 Dose: 40 mg Documented by: Sodium Chloride ([place]) 2 spray NASAL QID PRN PRN Reason: Congestion Physical examination: VITAL SIGNS: 98, 96, 18, 116/72 94% on 3 L GENERAL: Propped up in bed, tired EYES: Pupils equal. Conjunctiva normal. HEENT: External appearance of nose and ears normal, oral cavity grossly normal. NECK: Short and thick, JVD unable to assess mass not palpable. HEART: Heart sounds are muffled; edema present. LUNGS:[ Respiratory rate increased; diminished breath sounds. MUSCULOSKELETAL: Reproducible left anterior chest wall pain ABDOMEN: Soft, nontender, liver spleen not palpable, no masses palpable. PSYCH: Alert and oriented x3; mood and affect normal. DERMATOLOGICAL: Dryness of the skin on lower extremity and wounds of the left jasmine INVESTIGATIONS, reviewed in the clinical context: Accu-Cheks 89, 97, 73 Previous testing White count 8.5 hemoglobin 15.9 platelets 221 potassium 4.4 bun 57 creatinine 1.8 to Lactic acid 2.3 EKG tracing personally reviewed by -massimo Marcus fib, low-voltage Chest [id number]-qld-[id number] venous prominence Assessment: - acute on chronic congestive heart failure exacerbation, improved -Left anterior chest wall pain following a session of blowing his nose, likely musculoskeletal. Pain is reproducible, POA -Persistent atrial fibrillation, rate controlled -Morbid obesity BMI 74.4 -Chronic medical debility due to superobesity -Bilateral lower extremity superficial wounds , as the patient to begin improving secondary to venous insufficiency -Essential hypertension -GERD -Diabetes mellitus type 2 -Chronic kidney disease stage III likely combination of diabetic nephropathy and hypertensive nephrosclerosis Plan: Patient diet will be made full liquids. Advance as tolerated. Discussed with patient.
[2019-11-29 20:52] LABS: Glucose,Whole Blood 65 mg/dL (75-99)
[2019-11-29] MEDS: ATORVASTATIN 40 MG TAB PO SCH (21:07)
[2019-11-29 21:19] LABS: Glucose,Whole Blood 111 mg/dL (75-99)
[2019-11-30 01:31] VITALS: RESP 18
[2019-11-30] MEDS: HYDROcodone/APAP 10-325MG 1 EACH TAB PO PRN (05:52)
[2019-11-30] MEDS: LEVOTHYROXINE 125 MCG TAB PO SCH (05:53)
[2019-11-30] MEDS: PANTOPRAZOLE 40 MG TABLET PO SCH (05:53)
[2019-11-30 06:16] LABS: Glucose,Whole Blood 105 mg/dL (75-99)
[2019-11-30 06:29] LABS: Calcium 8.7 mg/dL (8.4-10.2); Potassium 4.8 mmol/L (3.5-5.1)
[2019-11-30] MEDS: FERROUS SULFATE 325 MG TAB PO SCH (10:18)
[2019-11-30] MEDS: FUROSEMIDE 20 MG TAB PO SCH (10:18)
[2019-11-30] MEDS: METOPROLOL TARTRATE 25 MG TAB PO SCH (10:18)
[2019-11-30] MEDS: ALLOPURINOL 300 MG TAB PO SCH (10:18)
[2019-11-30] MEDS: GLIMEPIRIDE 4 MG TAB PO SCH (10:18)
[2019-11-30] MEDS: METHYLPHENIDATE HCL 10 MG TAB PO SCH (10:18)
[2019-11-30] MEDS: ENOXAPARIN 40 MG/0.4 ML SYRINGE SQ SCH (10:19)
[2019-11-30 12:01] LABS: Glucose,Whole Blood 97 mg/dL (75-99)
[2019-11-30 15:33] VITALS: BP 113/82; PULSE 104; TEMP 97.6
--- NOTE | 2019-11-30 21:18 | P.DS ---
Providers Date of admission: 11/26/19 11:18 Expected date of discharge: 11/30/19 Attending physician: Sam Canas Consults: 11/27/19 16:15 Consult Physician Routine Consulting Provider: Titi Hallman Consult Reason/Comments: Chest pain Do you want consulting provider notified?: Yes Primary care physician: Yuri Myrick MD Hospital Course: Chief Complaint: Short of breath History of presenting complaint: This is a pleasant 54-year-old patient of visiting physician Dr. Yuri Atwood. Patient was here in January of last year with extended hospital stay. Patient was then admitted with severe cellulitis with multiple organisms including both lower extremities groin scrotal area. He then also had septic shock. Also had a UTI. Chronic stable medical conditions include chronic medical debility, diabetes, GERD, hypertension, chronic kidney disease diabetic nephropathy, bilateral chronic lower extremity wounds which is cared for by son and hypothyroidism atrial fibrillation. Recently admitted with CHF exacerbation. Responded well to Lasix drip. Patient now presents with patient was trying hard to blowing his nose. He managed to blow out significant amount of clotted blood goop he described. At the same time developed sharp pain in the left precordial area. The pain was present off and on most of the night. Pain is reproducible. Did not radiate to the to the neck or arms. Patient's breathing is not too different from his baseline.. Has chronic lower action be swallowing and wounds. No fever or chills. Admitted with CHF exacerbation, possibly musculoskeletal left chest wall. Pain. Started on IV Lasix drip. Responded well. Switched to by mouth Lasix. Today-doing better. Did have an episode of hypoglycemia as not eating well. Told to hold of his oral hypoglycemic per day. Patient hungry. Diet advanced . Consultation: Dr. Bassett from cardiology [facility] for wound care Physical examination: VITAL SIGNS: 97.6, 104, 18, 11 3/82, 93% on 2 L GENERAL: Propped up in bed, comfortable EYES: Pupils equal. Conjunctiva normal. HEENT: External appearance of nose and ears normal, oral cavity grossly normal. NECK: Short and thick, JVD unable to assess mass not palpable. HEART: Heart sounds are muffled; edema present. LUNGS:[ Respiratory rate increased; diminished breath sounds. MUSCULOSKELETAL: Reproducible left anterior chest wall pain ABDOMEN: Soft, nontender, liver spleen not palpable, no masses palpable. PSYCH: Alert and oriented x3; mood and affect normal. DERMATOLOGICAL: Dryness of the skin on lower extremity and wounds of the left jasmine INVESTIGATIONS, reviewed in the clinical context: Potassium 4.8 bun 62 creatinine 1.86 Accu-Cheks 105, 97 Previous testing White count 8.5 hemoglobin 15.9 platelets 221 potassium 4.4 bun 57 creatinine 1.8 to Lactic acid 2.3 EKG tracing personally reviewed by me-possible A. fib, low-voltage Chest r-jvo-umycpquy venous prominence Assessment: - acute on chronic congestive heart failure exacerbation, POA -Left anterior chest wall pain following a session of blowing his nose, likely musculoskeletal. Pain is reproducible, POA -Persistent atrial fibrillation, rate controlled -Morbid obesity BMI 74.4 -Chronic medical debility due to superobesity -Bilateral lower extremity superficial wounds , as the patient to begin improving secondary to venous insufficiency -Essential hypertension -GERD -Diabetes mellitus type 2, uncontrolled with hypoglycemia from decreased oral intake from nausea -Chronic kidney disease stage III likely combination of diabetic nephropathy and hypertensive nephrosclerosis Disposition: Home Patient Condition at Discharge: Fair Plan - Discharge Summary Discharge Rx Participant: No New Discharge Prescriptions: Continue Hydrocodone/Acetaminophen [[place] 10-325] 1 tab PO Q6H PRN PRN Reason: Pain Pantoprazole Sodium [Protonix] 40 mg PO DAILY #30 tablet. Ammonium Lactate Lotion [Lac-Hydrin 12% Lotion] 1 applic TOPICAL BID PRN PRN Reason: Skin Irritation Allopurinol [Zyloprim] 300 mg PO DAILY Ferrous Sulfate [Iron (65 MG Elemental)] 325 mg PO BID Ergocalciferol (Vitamin D2) [Drisdol] 50,000 unit PO MO Nystatin [Nystop] 1 applic TOPICAL BID PRN PRN Reason: Skin Irritation Torsemide [Demadex] 20 mg PO BID #60 tab Methylphenidate HCl 20 mg PO DAILY Levothyroxine Sodium [Synthroid] 125 mcg PO DAILY Atorvastatin [Lipitor] 40 mg PO HS #30 tab Glimepiride [Amaryl] 4 mg PO DAILY Changed Metoprolol Tartrate [Lopressor] 25 mg PO TID #0 Discharge Medication List Hydrocodone/Acetaminophen [[place] 10-325] 1 tab PO Q6H PRN 10/12/16 [History] Pantoprazole Sodium [Protonix] 40 mg PO DAILY #30 tablet.dr 11/10/16 [Rx] Allopurinol [Zyloprim] 300 mg PO DAILY 10/21/18 [History] Ammonium Lactate Lotion [Lac-Hydrin 12% Lotion] 1 applic TOPICAL BID PRN 10/21/18 [History] Ergocalciferol (Vitamin D2) [Drisdol] 50,000 unit PO MO 10/21/18 [History] Ferrous Sulfate [Iron (65 MG Elemental)] 325 mg PO BID 10/21/18 [History] Nystatin [Nystop] 1 applic TOPICAL BID PRN 02/12/19 [History] Torsemide [Demadex] 20 mg PO BID #60 tab 02/25/19 [Rx] Levothyroxine Sodium [Synthroid] 125 mcg PO DAILY 11/12/19 [History] Methylphenidate HCl 20 mg PO DAILY 11/12/19 [History] Atorvastatin [Lipitor] 40 mg PO HS #30 tab 11/15/19 [Rx] Glimepiride [Amaryl] 4 mg PO DAILY 11/26/19 [History] Metoprolol Tartrate [Lopressor] 25 mg PO TID #0 11/30/19 [Rx] Follow up Appointment(s)/Referral(s): [facility], [NON-STAFF] - Yuri Myrick MD [Primary Care Provider] - 1-2 days (please call for follow- up appointment) Patient Instructions/Handouts: Heart Failure (DC), Heart Healthy Diet (DC) Activity/Diet/Wound Care/Special Instructions: Script for portable oxygen concentrator faxed to [facility]. You will be put on a waiting list, this can take 3-4 months. Call [phone] to follow up regarding this CHF 1. Weigh yourself every morning after you urinate. If you gain 2-3 pounds overnight or 5 pounds in one week, call your primary physician for guidance on your medications. Keep a log of your weights. 2. Avoid salt, or foods with hidden salt. Extra salt makes your heart work harder and traps the fluid in your body for longer. 3. Take all of your medications as directed, especially your water pills. NEVER skip a dose. 4. Elevate your legs when you are not up moving around to help with circulation and prevent swelling. 5. Call your physician if you notice any extra swelling in your legs, ankles, feet or abdomen, if you have a new dry cough, if your shortness of breath worsens with activity or at rest, or if you feel more fatigued. check accuchecks daily Discharge Disposition: HOME SELF-CARE
[2019-12-01] MEDS ORDERED: ERGOCALCIFEROL 50,000 UNIT CAP PO SCH (09:00)
== END 2019-11-30 15:15 | disposition home health service (06) | DRG 291 ==
LOC: EC 08:41 → 3SCARD 11:18
PROVIDERS: ADMIT Hospitalist; ATTEND Hospitalist
DX: I13.0 Hypertensive heart and chronic kidney disease with heart failure and stage 1 through stage 4 chronic kidney disease, or unspecified chronic kidney disease (principal); I50.33 Acute on chronic diastolic (congestive) heart failure; I48.19 Other persistent atrial fibrillation; Z68.45 Body mass index [BMI] 70 or greater, adult; L97.222 Non-pressure chronic ulcer of left calf with fat layer exposed; E11.649 Type 2 diabetes mellitus with hypoglycemia without coma; N18.3 Chronic kidney disease, stage 3 (moderate); E11.40 Type 2 diabetes mellitus with diabetic neuropathy, unspecified; E11.22 Type 2 diabetes mellitus with diabetic chronic kidney disease; E66.01 Morbid (severe) obesity due to excess calories; R06.03 Acute respiratory distress; K21.9 Gastro-esophageal reflux disease without esophagitis; F41.9 Anxiety disorder, unspecified; M94.0 Chondrocostal junction syndrome [Tietze]; E03.9 Hypothyroidism, unspecified; I87.2 Venous insufficiency (chronic) (peripheral); I89.0 Lymphedema, not elsewhere classified; R07.89 Other chest pain; Z71.3 Dietary counseling and surveillance; Z79.899 Other long term (current) drug therapy; Z79.890 Hormone replacement therapy; Z79.84 Long term (current) use of oral hypoglycemic drugs; Z87.19 Personal history of other diseases of the digestive system; Z86.14 Personal history of Methicillin resistant Staphylococcus aureus infection; Z87.440 Personal history of urinary (tract) infections; Z87.11 Personal history of peptic ulcer disease; Z87.01 Personal history of pneumonia (recurrent); Z91.048 Other nonmedicinal substance allergy status; Z87.891 Personal history of nicotine dependence; Z99.81 Dependence on supplemental oxygen; Z87.81 Personal history of (healed) traumatic fracture; Z98.890 Other specified postprocedural states; Z86.19 Personal history of other infectious and parasitic diseases; Z88.8 Allergy status to other drugs, medicaments and biological substances; Z83.3 Family history of diabetes mellitus; Z83.2 Family history of diseases of the blood and blood-forming organs and certain disorders involving the immune mechanism; Z82.49 Family history of ischemic heart disease and other diseases of the circulatory system
CPT/HCPCS: 36415; 71046; 80048; 80053; 82550; 82803; 83605; 83735; 83880; 84484; 85025; 85610; 85730; 87040; 93005; 94640; 96361; 96365; 96375; 96376; 99291

== ENCOUNTER 2019-12-05 18:57 | Inpatient (IN) | payer OTHER ==
[2019-12-05 19:49] LABS: Anisocytosis Slight; Basophils # (A) 0.1 k/uL (0-0.2); Basophils % (A) 1 %; Eosinophils # (A) 0.1 k/uL (0-0.7); Eosinophils % (A) 1 %; Hypochromasia Marked; Lymphocytes # (A) 0.7 k/uL (1.0-4.8); Lymphocytes % (A) 10 %; MCH 27.5 pg (25.0-35.0); MCHC 28.6 g/dL (31.0-37.0); MCV 96.2 fL (80.0-100.0); Macrocytosis Slight; Mean Platelet Volume 9.1; Monocytes # (A) 0.7 k/uL (0-1.0); Monocytes % (A) 10 %; Neutrophils # (A) 5.2 k/uL (1.3-7.7); Neutrophils % (A) 76 %; Platelet Count 184 k/uL (150-450); Poikilocytosis Slight; RBC 5.83 m/uL (4.30-5.90); RDW 17.4 % (11.5-15.5); WBC 6.8 k/uL (3.8-10.6)
--- NOTE | 2019-12-05 19:51 | XR ---
EXAMINATION TYPE: XR chest 1V portable DATE OF EXAM: 12/05/2019 COMPARISON: 11/26/2019 HISTORY: Cough TECHNIQUE: FINDINGS: There is some airspace consolidation in the right lower lobe. There is blunting of right co stophrenic angle. Heart is enlarged. There is mild pulmonary congestion. IMPRESSION: Right lower lobe pneumonia and pleural fluid increased significantly compared to last exa m. Mild heart failure is possible.
[2019-12-05 19:57] LABS: Albumin 3.3 g/dL (3.5-5.0); Calcium 8.9 mg/dL (8.4-10.2); Potassium 5.1 mmol/L (3.5-5.1); Total Bilirubin 1.1 mg/dL (0.2-1.3); Total Protein 7.5 g/dL (6.3-8.2)
[2019-12-05] MEDS ORDERED: AZITHROMYCIN 500 MG in SODIUM CHLORIDE 0.9% 250 ML IVPB STA (19:58)
[2019-12-05 20:14] LABS: HCT 56.1 % (39.0-53.0)
--- NOTE | 2019-12-05 20:29 | ED ---
SOB HPI - General Chief Complaint: Shortness of Breath Stated Complaint: LACEY Time Seen by Provider: 12/05/19 19:11 Source: EMS Mode of arrival: EMS Limitations: no limitations - History of Present Illness Initial Comments: Demetri is a morbidly obese 54-year-old gentleman who presents the ER today by ambulance for evaluation of shortness of breath. Patient was recently admitted to the hospital for pneumonia and congestive heart failure, he was discharged home 5 days ago. Patient states that since being discharged home he's had progressively worsening shortness of breath. Patient reports that his home hospital bed is not sit up all the way and any time he reclines back to become short of breath. Patient reports he's had a minimally productive cough of greenish brown sputum. EMS reports that upon their arrival does house he was hypoxic with oxygen saturations the low 80s. Patient denies any chest pain or palpitations. He denies any fevers chills nausea or vomiting. He does note that his legs and abdomen seemed to be more edematous than usual and that he believes he has gained weight and is "filling back up with fluids" since his pre vious hospitalization. - Related Data Home Medications Medication Instructions Recorded Confirmed Hydrocodone/Acetaminophen [[place] 1 tab PO Q6H PRN 10/12/16 11/26/19 10-325] Allopurinol [Zyloprim] 300 mg PO DAILY 10/21/18 11/26/19 Ammonium Lactate Lotion 1 applic TOPICAL BID PRN 10/21/18 11/26/19 [Lac-Hydrin 12% Lotion] Ergocalciferol (Vitamin D2) 50,000 unit PO MO 10/21/18 11/26/19 [Drisdol] Ferrous Sulfate [Iron (65 MG 325 mg PO BID 10/21/18 11/26/19 Elemental)] Nystatin [Nystop] 1 applic TOPICAL BID PRN 02/12/19 11/26/19 Levothyroxine Sodium [Synthroid] 125 mcg PO DAILY 11/12/19 11/26/19 Methylphenidate HCl 20 mg PO DAILY 11/12/19 11/26/19 Glimepiride [Amaryl] 4 mg PO DAILY 11/26/19 11/26/19 Previous Rx's Medication Instructions Recorded Pantoprazole Sodium [Protonix] 40 mg PO DAILY #30 tablet. 11/10/16 Torsemide [Demadex] 20 mg PO BID #60 tab 02/25/19 Atorvastatin [Lipitor] 40 mg PO HS #30 tab 11/15/19 Metoprolol Tartrate [Lopressor] 25 mg PO TID #0 11/30/19 Allergies Allergy/AdvReac Type Severity Reaction Status Date / Time warfarin [From Coumadin] AdvReac caused GI Verified 12/05/19 19:11 bleed, affected kidney function wool AdvReac Unknown Verified 12/05/19 19:11 Review of Systems ROS Statement: Those systems with pertinent positive or pertinent negative responses have been documented in the HPI. ROS Other: All systems not noted in ROS Statement are negative. Past Medical History Past Medical History: Atrial Fibrillation, Heart Failure, Diabetes Mellitus, GERD/Reflux, Hypertension, Renal Disease, Skin Disorder Additional Past Medical History / Comment(s): Pt recently admitted to [facility] on 11/12/19 with acute CHF/tracheobronchitis. Other hx: Home oxygen at 3L/NC ATC, chronic Afib, NIDDM type II, neuropathy to bilateral feet, CKD stage III, chronic bilateral leg lymphadema with R leg weeping, current sore lower L leg- wrapped, past chronic lower extremity wounds/venous insufficiency, January 2019 severe cellulitis with multiple organisms bilateral lower legs/groin/scrotum with septic shock and UTI, past wounds on hips/buttocks, past upper GI bleed d/t coumadin/anemia, multiple gastric ulcers-duodenal and antral, hypothyroid. History of Any Multi-Drug Resistant Organisms: MRSA, Other MDRO Date of last positivie culture/infection: 08/21/17 MRSA MDRO Source:: leg rt Past Surgical History: Orthopedic Surgery Additional Past Surgical History / Comment(s): EGD, bilateral feet surgery for fractures/pins/pins since removed, lower leg wounds I&Ds. Past Anesthesia/Blood Transfusion Reactions: No Reported Reaction Additional Past Anesthesia/Blood Transfusion Reaction / Comment(s): Pt has received blood in past without reaction. Past Psychological History: Anxiety Smoking Status: Former smoker - Past Family History Father Family Medical History: Diabetes Mellitus, Deep Vein Thrombosis (DVT) Additional Family Medical History / Comment(s): both legs amputated due to blood clots Mother Family Medical History: Deep Vein Thrombosis (DVT), Vascular Disorder Additional Family Medical History / Comment(s): lost both of legs, blood clot surgeries, stent in leg, carotid endardectomy General Exam - General Exam Comments Initial Comments: Physical Exam GENERAL: Morbidly obese gentleman in mild respiratory distress HENT: Normocephalic, Atraumatic. EYES: PERRL, EOMI PULMONARY: Crackles at bases and expiratory wheezes noted CARDIOVASCULAR: Irregularly irregular ABDOMEN: Soft and nontender with normal bowel sounds. SKIN: Skin changes on bilateral lower extremities consistent with chronic venous stasis, lymphedema : Deferred NEUROLOGIC: Patient is alert and oriented x3. Moving all extremities spontaneously MUSCULOSKELETAL: Range of motion limited by body habitus PSYCHIATRIC: Normal psychiatric evaluation. Limitations: no limitations Course Vital Signs 12/05/19 12/05/19 12/05/19 19:03 19:30 20:00 Temperature 97.1 F L Pulse Rate 75 86 87 Respiratory 30 H 24 26 H Rate Blood Pressure 118/105 118/105 106/70 O2 Sat by Pulse 87 L 93 L 94 L Oximetry 12/05/19 12/05/19 12/05/19 20:30 21:00 21:30 Temperature Pulse Rate 101 H 96 105 H Respiratory Rate Blood Pressure 107/76 116/89 113/70 O2 Sat by Pulse 92 L 91 L 91 L Oximetry Medical Decision Making - Medical Decision Making The patient was seen and evaluated upon arrival the emergency department, history is obtained from review of medical record and the patient as well as EMS Some morbidly obese gentleman with congestive heart failure recurrent pneumonias presenting today hypoxic no chest pain but has had weight gain and a productive cough A septic workup was initiated, chest x-ray confirms a pneumonia as well as concern for heart failure Patient doesn't have any fever tachycardia or vital sign instabilities at this time we will treat the pneumonia with Rocephin and azithromycin, considering the patient is in heart failure we will avoid IV fluid bolusing him Patient's oxygenation is been stable on nasal cannula not requiring any further respiratory support Patient care was discussed with Dr. Carranza of the [facility] who agr ees with the plan for admission for recurrent pneumonia, worsening congestive heart failure in a chronically ill patient - Lab Data Result diagrams: 12/05/19 19:30 12/05/19 19:30 Lab Results 12/05/19 12/05/19 12/05/19 Range/Units 19:19 19:30 19:30 WBC 6.8 (3.8-10.6) k/uL RBC 5.83 (4.30-5.90) m/uL Hgb 16.0 (13.0-17.5) gm/dL Hct 56.1 H (39.0-53.0) % MCV 96.2 (80.0-100.0) fL MCH 27.5 (25.0-35.0) pg MCHC 28.6 L (31.0-37.0) g/dL RDW 17.4 H (11.5-15.5) % Plt Count 184 (150-450) k/uL Neutrophils % 76 % Lymphocytes % 10 % Monocytes % 10 % Eosinophils % 1 % Basophils % 1 % Neutrophils # 5.2 (1.3-7.7) k/uL Lymphocytes # 0.7 L (1.0-4.8) k/uL Monocytes # 0.7 (0-1.0) k/uL Eosinophils # 0.1 (0-0.7) k/uL Basophils # 0.1 (0-0.2) k/uL Hypochromasia Marked Poikilocytosis Slight Anisocytosis Slight Macrocytosis Slight PT (9.0-12.0) sec INR (<1.2) APTT (22.0-30.0) sec Sodium 137 (137-145) mmol/L Potassium 5.1 (3.5-5.1) mmol/L Chloride 92 L (98-107) mmol/L Carbon Dioxide 39 H (22-30) mmol/L Anion Gap 6 mmol/L BUN 50 H (9-20) mg/dL Creatinine 1.67 H (0.66-1.25) mg/dL Est GFR (CKD-EPI)AfAm 52 (>60 ml/min/1.73 sqM) Est GFR (CKD-EPI)NonAf 45 (>60 ml/min/1.73 sqM) Glucose 85 (74-99) mg/dL Plasma Lactic Acid Chong (0.7-2.0) mmol/L Calcium 8.9 (8.4-10.2) mg/dL Total Bilirubin 1.1 (0.2-1.3) mg/dL AST 26 (17-59) U/L ALT 18 (4-49) U/L Alkaline Phosphatase 268 H (38-126) U/L Troponin I (0.000-0.034) ng/mL NT-Pro-B Natriuret Pep pg/mL Total Protein 7.5 (6.3-8.2) g/dL Albumin 3.3 L (3.5-5.0) g/dL Influenza Type A RNA Not Detected (Not Detectd) Influenza Type B (PCR) Not Detected (Not Detectd) 12/05/19 12/05/19 12/05/19 Range/Units 19:30 19:30 19:30 WBC (3.8-10.6) k/uL RBC (4.30-5.90) m/uL Hgb (13.0-17.5) gm/dL Hct (39.0-53.0) % MCV (80.0-100.0) fL MCH (25.0-35.0) pg MCHC (31.0-37.0) g/dL RDW (11.5-15.5) % Plt Count (150-450) k/uL Neutrophils % % Lymphocytes % % Monocytes % % Eosinophils % % Basophils % % Neutrophils # (1.3-7.7) k/uL Lymphocytes # (1.0-4.8) k/uL Monocytes # (0-1.0) k/uL Eosinophils # (0-0.7) k/uL Basophils # (0-0.2) k/uL Hypochromasia Poikilocytosis Anisocytosis Macrocytosis PT (9.0-12.0) sec INR (<1.2) APTT (22.0-30.0) sec Sodium (137-145) mmol/L Potassium (3.5-5.1) mmol/L Chloride (98-107) mmol/L Carbon Dioxide (22-30) mmol/L Anion Gap mmol/L BUN (9-20) mg/dL Creatinine (0.66-1.25) mg/dL Est GFR (CKD-EPI)AfAm (>60 ml/min/1.73 sqM) Est GFR (CKD-EPI)NonAf (>60 ml/min/1.73 sqM) Glucose (74-99) mg/dL Plasma Lactic Acid [place]ong 1.5 (0.7-2.0) mmol/L Calcium (8.4-10.2) mg/dL Total Bilirubin (0.2-1.3) mg/dL AST (17-59) U/L ALT (4-49) U/L Alkaline Phosphatase (38-126) U/L Troponin I 0.018 (0.000-0.034) ng/mL NT-Pro-B Natriuret Pep 3370 pg/mL Total Protein (6.3-8.2) g/dL Albumin (3.5-5.0) g/dL Influenza Type A RNA (Not Detectd) Influenza Type B (PCR) (Not Detectd) 12/05/19 Range/Units 20:11 WBC (3.8-10.6) k/uL RBC (4.30-5.90) m/uL Hgb (13.0-17.5) gm/dL Hct (39.0-53.0) % MCV (80.0-100.0) fL MCH (25.0-35.0) pg MCHC (31.0-37.0) g/dL RDW (11.5-15.5) % Plt Count (150-450) k/uL Neutrophils % % Lymphocytes % % Monocytes % % Eosinophils % % Basophils % % Neutrophils # (1.3-7.7) k/uL Lymphocytes # (1.0-4.8) k/uL Monocytes # (0-1.0) k/uL Eosinophils # (0-0.7) k/uL Basophils # (0-0.2) k/uL Hypochromasia Poikilocytosis Anisocytosis Macrocytosis PT 11.5 (9.0-12.0) sec INR 1.1 (<1.2) APTT 23.0 (22.0-30.0) sec Sodium (137-145) mmol/L Potassium (3.5-5.1) mmol/L Chloride (98-107) mmol/L Carbon Dioxide (22-30) mmol/L Anion Gap mmol/L BUN (9-20) mg/dL Creatinine (0.66-1.25) mg/dL Est GFR (CKD-EPI)AfAm (>60 ml/min/1.73 sqM) Est GFR (CKD-EPI)NonAf (>60 ml/min/1.73 sqM) Glucose (74-99) mg/dL Plasma Lactic Acid Chong (0.7-2.0) mmol/L Calcium (8.4-10.2) mg/dL Total Bilirubin (0.2-1.3) mg/dL AST (17-59) U/L ALT (4-49) U/L Alkaline Phosphatase (38-126) U/L Troponin I (0.000-0.034) ng/mL NT-Pro-B Natriuret Pep pg/mL Total Protein (6.3-8.2) g/dL Albumin (3.5-5.0) g/dL Influenza Type A RNA (Not Detectd) Influenza Type B (PCR) (Not Detectd) - EKG Data -: EKG Interpreted by Me EKG Comments: EKG was obtained as part a septic workup, EKG was obtained at 719, rate is 94 rhythm is A. fib, QRS 104, QTC [address] elevations or depressions no evidence of acute ischemia or infarction. Disposition Clinical Impression: Obesity, Chronic a-fib, Bilateral lower extremity edema, Acute exacerbation of chronic obstructive pulmonary disease, Respiratory distress, acute, Hypoxemia Disposition: ADMITTED IP TO THIS HOSP Condition: Serious
[2019-12-05 20:35] LABS: INR 1.1 (<1.2); Prothrombin Time 11.5 sec (9.0-12.0)
[2019-12-05] MEDS: FUROSEMIDE 10 MG/ML 4 ML VIAL IV SCH (22:23)
[2019-12-06] MEDS: FERROUS SULFATE 325 MG TAB PO SCH ×3 (01:07→21:02)
[2019-12-06] MEDS: HYDROcodone/APAP 10-325MG 1 EACH TAB PO PRN ×3 (01:07→23:18)
[2019-12-06] MEDS: METOPROLOL TARTRATE 25 MG TAB PO SCH ×4 (01:07→21:21)
[2019-12-06] MEDS: ATORVASTATIN 40 MG TAB PO SCH ×2 (01:08→21:02)
--- NOTE | 2019-12-06 01:11 | P.HPIM ---
History of Present Illness H&P Date: 12/05/19 Chief Complaint: difficulty breathing, orthopnea 54 year old male with persistent afib, hypertension, CKD III, morbidly obese, diastolic CHF patient comes in less than one week after discharge where he was treated for acute chf exacerbation, with similar complaint of trouble breathing, especially when he tries to sleep. patient is also suspected to have mechanical hypoven tilation syndrome due to his body habitus . he was provided with a hospital bed upon discharge last time, and claims being compliant with his medications and monitoring his total fluid intake, however, he complained that his hospital bed does not go up enough to help him sleep. he claims that this is all new to [facility] since the beginning of the year, as he was ambulating without limitation last year and able to walk across his room without assistance, and claims that he had no trouble sleeping, and was working on losing weight which he was losing slowly . he currently reports some occasional coughing with yellowish sputum, denies chest pain , denies any fever or chills, denies sick contacts. he is home bound and hoping to get better and stronger. he has chronic bilateral leg edema however, reports that its been getting worse recently. with weeping blisters over his right thigh. he has persistent A. fib but not on any blood thinners patient denies any GI symptoms patient uses 3 LPM home oxygen , denies using CPAP or bipap, ems noted that patient oxygen level upon arrival was in the 80s% in the ED, he was found to be in acute CHF exacerbation , CXR showed bilateral pleural effusion and suspected pneumonia Review of Systems Pertinent positives as noted in HPI. All other systems were reviewed and are negative Past Medical History Past Medical History: Atrial Fibrillation, Heart Failure, Diabetes Mellitus, G ERD/Reflux, Hypertension, Renal Disease, Skin Disorder Additional Past Medical History / Comment(s): Pt recently admitted to [facility] on 11/12/19 with acute CHF/tracheobronchitis. Other hx: Home oxygen at 3L/NC ATC, chronic Afib, NIDDM type II, neuropathy to bilateral feet, CKD stage III, chronic bilateral leg lymphadema with R leg weeping, current sore lower L leg-wrapped, past chronic lower extremity wounds/venous insufficiency, January 2019 severe cellulitis with multiple organisms bilateral lower legs/groin/scrotum with septic shock and UTI, past wounds on hips/buttocks, past upper GI bleed d/t coumadin/anemia, multiple gastric ulcers-duodenal and antral, hypothyroid. History of Any Multi-Drug Resistant Organisms: MRSA, Other MDRO Date of last positivie culture/infection: 08/21/17 MRSA MDRO Source:: leg rt Past Surgical History: Orthopedic Surgery Additional Past Surgical History / Comment(s): EGD, bilateral feet surgery for fractures/pins/pins since removed, lower leg wounds I&Ds. Past Anesthesia/Blood Transfusion Reactions: No Reported Reaction Additional Past Anesthesia/Blood Transfusion Reaction / Comment(s): Pt has received blood in past without reaction. Past Psychological History: Anxiety Smoking Status: Former smoker - Past Family History Father Family Medical History: Diabetes Mellitus, Deep Vein Thrombosis (DVT) Additional Family Medical History / Comment(s): both legs amputated due to blood clots Mother Family Medical History: Deep Vein Thrombosis (DVT), Vascular Disorder Additional Family Medical History / Comment(s): lost both of legs, blood clot surgeries, stent in leg, carotid endardectomy Medications and Allergies Home Medications Medication Instructions Recorded Confirmed Type Hydrocodone/Acetaminophen [[place] 1 tab PO Q6H PRN 10/12/16 12/05/19 History 10-325] Pantoprazole Sodium [Protonix] 40 mg PO DAILY #30 tablet. 11/10/16 12/05/19 Rx Allopurinol [Zyloprim] 300 mg PO DAILY 10/21/18 12/05/19 History Ammonium Lactate Lotion 1 applic TOPICAL BID PRN 10/21/18 12/05/19 History [Lac-Hydrin 12% Lotion] Ergocalciferol (Vitamin D2) 50,000 unit PO MO 10/21/18 12/05/19 History [Drisdol] Ferrous Sulfate [Iron (65 MG 325 mg PO BID 10/21/18 12/05/19 History Elemental)] Nystatin [Nystop] 1 applic TOPICAL BID PRN 02/12/19 12/05/19 History Torsemide [Demadex] 20 mg PO BID #60 tab 02/25/19 12/05/19 Rx Levothyroxine Sodium [Synthroid] 125 mcg PO DAILY 11/12/19 12/05/19 History Methylphenidate HCl 20 mg PO DAILY 11/12/19 12/05/19 History Atorvastatin [Lipitor] 40 mg PO HS #30 tab 11/15/19 12/05/19 Rx Glimepiride [Amaryl] 4 mg PO DAILY 11/26/19 12/05/19 History Metoprolol Tartrate [Lopressor] 25 mg PO TID #0 11/30/19 12/05/19 Rx Allergies Allergy/AdvReac Type Severity Reaction Status Date / Time warfarin [From Coumadin] AdvReac caused GI Verified 12/05/19 22:27 bleed, affected kidney function wool AdvReac Unknown Verified 12/05/19 22:27 Physical Exam Vitals: Vital Signs Temp Pulse Resp BP Pulse Ox 12/05/19 20:00 87 26 H 106/70 94 L 12/05/19 19:30 86 24 118/105 93 L 12/05/19 19:03 97.1 F L 75 30 H 118/105 87 L Intake and Output 12/05/19 12/05/19 12/05/19 06:59 14:59 22:59 Other: Weight 272.155 kg Constitutional: No acute distress, conversant, pleasant, morbidly obese Eyes: Anicteric sclerae, moist conjunctiva, Pupils equal round reactive to light ENMT: NC/AT Oropharynx clear, no erythema, exudates Neck: Supple, FROM, no masses, or JVD No carotid bruits No thyromegaly Lungs: Diminished breath sounds at lung bases bilaterally no wheezing Decreased percussion note to left lower lung Normal respiratory effort, no accessory muscle use Cardiovascular: Heart regular in rate and rhythm, No murmurs, gallops, or rubs +3 bilateral peripheral edema Abdominal: Soft Nontender, no guarding, rebound or rigidity Abdomen moving with respiration Normoactive bowel sounds Obese limiting exam, periumbilical hernia soft to the touch nontender Skin: Chronic dermatitis skin changes over bilateral legs, otherwise Normal temperature, tone, texture, turgor No induration No subcutaneous nodules Weeping blisters over the lateral right thigh Extremities: No digital cyanosis No clubbing Pedal pulses intact and symmetrical Radial pulses intact and symmetrical No calf tenderness Psychiatric: Alert and oriented to person, place and time Appropriate affect fair judgement Neuro Muscles Strength 4/5 in all 4 extremities Sensation to light touch grossly present throughout Cranial nerves II-XII grossly intact No focal sensory deficits Lymphatics: no palpable cervical or supraclavicular , or inguinal lymph nodes Results CBC & Chem 7: 12/05/19 19:30 12/05/19 19:30 Labs: Abnormal Lab Results - Last 24 Hours (Table) 12/05/19 12/05/19 Range/Units 19:30 19:30 Hct 56.1 H (39.0-53.0) % MCHC 28.6 L (31.0-37.0) g/dL RDW 17.4 H (11.5-15.5) % Lymphocytes # 0.7 L (1.0-4.8) k/uL Chloride 92 L (98-107) mmol/L Carbon Dioxide 39 H (22-30) mmol/L BUN 50 H (9-20) mg/dL Creatinine 1.67 H (0.66-1.25) mg/dL Alkaline Phosphatase 268 H (38-126) U/L Albumin 3.3 L (3.5-5.0) g/dL Assessment and Plan Assessment: 54-year-old male morbidly obese with diastolic CHF hypothyroid and persistent A. fib comes in 5 days after discharge where he was treated for acute CHF exacerbation and pneumonia complaining of difficulty in breathing mainly during sleep and decreased ambulation along with increased swelling of his legs. Patient thought to be an acute diastolic CHF exacerbation admitted as an inpatient with anticipated length of stay more than 2 midnight Plan: acute on chronic hypoxic respiratory failure obesity hypoventilation syndrome acute on chronic diastolic CHF exacerbation LVEF 55% plan strict I and O daily weight iv Diuresis 40 mg lasix tid cardio consult resume home meds check ABG patient declined bipap supplemental oxygen as needed patient received 1 dose of antibiotics in the ED, no fever, no leukoxytosis , will continue to monitor off ABx chronic conditions persistent afib, not on anticoagulation , resume aspirin hypothyroid , continue home meds diabetes mellitus , A1C 6.5 (3 weeks ago ) , switch to insulin sliding scale while inpatient CKD stage III, stable, avoid nephrotoxic meds as possible , monitor renal function morbidly obese, refer to OP bariatric surgery eval chronic lymphedema of lower extremities, apply juan ramon wrap Preformed a thorough record review from recent hospitalization discharge 1 week ago , for pneumonia and CHF exacerbation CODE STATUS:full code DVT prophylaxis: heparin sc tid Discussed with: Patient, ER, RN Anticipated length of stay > than [address]: home A total of 60 minutes was spent on the care of this complex patient more than 50% of the time was spent in counseling and care coordination.
[2019-12-06] MEDS: IPRATROPIUM-ALBUTEROL 3 ML NEB INHALATION PRN ×4 (01:17→21:01)
[2019-12-06 01:30] LABS: ABG Oxygen Saturation 93.8 % (94-97); ABG PH 7.33 (7.35-7.45); ABG PO2 75 mmHg (83-108); ABG TCO2 42 mmol/L (19-24); Allen Test Performed? Yes
[2019-12-06 01:34] LABS: ABG HCO3 40 mmol/L (21-25)
[2019-12-06 06:25] LABS: Glucose,Whole Blood 109 mg/dL (75-99)
[2019-12-06] MEDS: INSULIN ASPART (NovoLOG) 100 UNIT/ML VIAL SQ SCH ×4 (06:25→21:04)
[2019-12-06] MEDS: LEVOTHYROXINE 125 MCG TAB PO SCH (06:32)
[2019-12-06] MEDS: FUROSEMIDE 10 MG/ML 4 ML VIAL IV SCH ×3 (06:32→21:04)
[2019-12-06 07:25] LABS: Calcium 8.7 mg/dL (8.4-10.2); Potassium 5.9 mmol/L (3.5-5.1)
[2019-12-06] MEDS ORDERED: METHYLPHENIDATE HCL 10 MG TAB PO SCH (09:00)
[2019-12-06] MEDS: PANTOPRAZOLE 40 MG TABLET PO SCH (10:02)
[2019-12-06] MEDS: HEPARIN SODIUM,PORCINE 5,000 UNIT/ML 1 ML VIAL SQ SCH ×3 (10:02→23:21)
[2019-12-06] MEDS: ALLOPURINOL 300 MG TAB PO SCH (10:02)
[2019-12-06 11:58] LABS: Glucose,Whole Blood 193 mg/dL (75-99)
[2019-12-06 12:12] VITALS: BMI 56.0
[2019-12-06] MEDS ORDERED: SODIUM POLYSTYRENE SULFONATE 15 GM/60 ML BOTTLE PO STA (14:19)
--- NOTE | 2019-12-06 14:23 | P.PN ---
Subjective Progress Note Date: 12/06/19 Patient seen and examined at bedside, patient is morbidly obese, creatinine at 1.64, serum potassium 5.9, serum sodium 135. Influenza A and B were negative in T proBNP was 3370, initial chest x-ray showed right lower lobe pneumonia and pleural fluid increased with heart failure, previous echocardiogram 11/13 showing preserved LVEF with a moderately enlarged right ventricle. ABG shows persistence of respiratory acidosis with hypercapnia. Patient with decent saturations on 4 L via nasal cannula Objective - Vital Signs Vital signs: Vital Signs Temp 97.5 F L 12/06/19 08:00 Pulse 77 12/06/19 11:50 Resp 20 12/06/19 11:50 BP 119/79 12/06/19 11:50 Pulse Ox 95 12/06/19 11:50 Intake & Output 12/05/19 12/06/19 12/06/19 18:59 06:59 18:59 Intake Total 540 Output Total 2 Balance 540 -2 Weight 203.12 kg 203.12 kg Intake: Oral 540 Output: Urine 2 - Exam Constitutional: No acute distress, conversant, pleasant, morbidly obese Eyes: Anicteric sclerae, moist conjunctiva, Pupils equal round reactive to light ENMT: NC/AT Oropharynx clear, no erythema, exudates Neck: Supple, FROM, no masses, or JVD No carotid bruits No thyromegaly Lungs: Diminished breath sounds at lung bases bilaterally no wheezing Decreased percussion note to left lower lung Normal respiratory effort, no accessory muscle use Cardiovascular: Heart regular in rate and rhythm, No murmurs, gallops, or rubs +3 bilateral peripheral edema Abdominal: Soft Nontender, no guarding, rebound or rigidity Abdomen moving with respiration Normoactive bowel sounds Obese limiting exam, periumbilical hernia soft to the touch nontender Skin: Chronic dermatitis skin changes over bilateral legs, otherwise Normal temperature, tone, texture, turgor No induration No subcutaneous nodules Weeping blisters over the lateral right thigh Extremities: No digital cyanosis No clubbing Pedal pulses intact and symmetrical Radial pulses intact and symmetrical No calf tenderness Psychiatric: Alert and oriented to person, place and time Appropriate affect fair judgement Neuro Muscles Strength 4/5 in all 4 extremities Sensation to light touch grossly present throughout Cranial nerves II-XII grossly intact No focal sensory deficits Lymphatics: no palpable cervical or supraclavicular , or inguinal lymph nodes - Labs CBC & Chem 7: 12/05/19 19:30 12/06/19 06:35 Labs: Abnormal Lab Results - Last 24 Hours (Table) 12/05/19 12/05/19 12/06/19 Range/Units 19:30 19:30 01:29 Hct 56.1 H (39.0-53.0) % MCHC 28.6 L (31.0-37.0) g/dL RDW 17.4 H (11.5-15.5) % Lymphocytes # 0.7 L (1.0-4.8) k/uL ABG pH 7.33 L (7.35-7.45) ABG pCO2 77 H* (35-45) mmHg ABG pO2 75 L (83-108) mmHg ABG HCO3 40 H* (21-25) mmol/L ABG Total CO2 42 H (19-24) mmol/L ABG O2 Saturation 93.8 L (94-97) % Sodium (137-145) mmol/L Potassium (3.5-5.1) mmol/L Chloride 92 L (98-107) mmol/L Carbon Dioxide 39 H (22-30) mmol/L BUN 50 H (9-20) mg/dL Creatinine 1.67 H (0.66-1.25) mg/dL Glucose (74-99) mg/dL POC Glucose (mg/dL) (75-99) mg/dL Alkaline Phosphatase 268 H (38-126) U/L Albumin 3.3 L (3.5-5.0) g/dL 12/06/19 12/06/19 12/06/19 Range/Units 06:24 06:35 11:57 Hct (39.0-53.0) % MCHC (31.0-37.0) g/dL RDW (11.5-15.5) % Lymphocytes # (1.0-4.8) k/uL ABG pH (7.35-7.45) ABG pCO2 (35-45) mmHg ABG pO2 (83-108) mmHg ABG HCO3 (21-25) mmol/L ABG Total CO2 (19-24) mmol/L ABG O2 Saturation (94-97) % Sodium 135 L (137-145) mmol/L Potassium 5.9 H (3.5-5.1) mmol/L Chloride 94 L (98-107) mmol/L Carbon Dioxide 34 H (22-30) mmol/L BUN 52 H (9-20) mg/dL Creatinine 1.64 H (0.66-1.25) mg/dL Glucose 116 H (74-99) mg/dL POC Glucose (mg/dL) 109 H 193 H (75-99) mg/dL Alkaline Phosphatase (38-126) U/L Albumin (3.5-5.0) g/dL Assessment and Plan Assessment: Acute on chronic respiratory failure * Multifactorial acute on chronic diastolic CHF exacerbation superimposed on possible pneumonia and obesity hypoventilation syndrome * ABG indicating respiratory acidosis * Patient has been noncompliant with BiPAP * Cardiology and pulmonary have been consulted for further recommendations * Portable chest x-ray ordered for the morning Acute on chronic diastolic CHF * Echo previously conducted 11/13 showing preserved LVEF and a moderately dilated right ventricle * Continue Lasix 40 mg IV q 8, with daily weights., Fluid restriction * We'll plan to consult cardiology for further recommendations Pneumonia * Continue current antibiotic regimen with Rocephin and azithromycin * Continue breathing treatments Hyperkalemia * Kayexalate and recheck labs tomorrow Chronic kidney disease stage III * Appears to have stable kidney disease * Avoid nephrotoxic agents Type 2 diabetes * A1c approximately 6.53 weeks ago * Continue correctional scale insulin coverage Chronic lymphedema * Continue diuresis with Artur wraps bilaterally Disposition * Continue current plan anticipated discharge 3-5 days
--- NOTE | 2019-12-06 17:01 | P.CNPUL ---
History of Present Illness Consult date: 12/06/19 Requesting physician: Cindy Ellington Reason for consult: dyspnea Chief complaint: Shortness of breath History of present illness: This is a very pleasant 54-year-old gentleman who was recently discharged from here 5 days prior to presenting to the emergency room with shortness of breath. He had been treated for congestive heart failure and tracheobronchitis. He is morbidly obese, suspect obesity/hypoventilation syndrome/obstructive sleep apnea however the patient has refused to wear a mask in the past, hypothyroidism, chronic atrial fibrillation, diabetes mellitus, neuropathy the bilateral feet, chronic kidney disease stage III, chronic bilateral leg lymphedema with weeping of the right thigh, ulcer of the left lower leg which is wrapped. He had been seen here by our group back in January 2019 while in the intensive care unit for sepsis secondary to severe cellulitis with multiple organisms of the lower extremities, groin and scrotum with septic shock and UTI. He has visiting y sicians coming to the house. He is seen in consultation on the selective care unit. He is currently awake and alert in no acute distress. He is maintaining O2 saturations in the mid 90s on 4 L/m per nasal cannula. He has been afebrile. Hemodynamically stable. Arterial blood gases on 36% FiO2 revealed a PaO2 of 75, pCO2 77, pH 7.33. Sodium 135. Potassium 5.9. Creatinine 1.64. White count 6.8. Hemoglobin 16.0. Chest x-ray reveals a right lower lobe pneumonia and pleural fluid increases significantly compared to last exam on 11/26/2019. Mild heart failure is possible. He has been initiated on DuoNeb inhalations, Lasix 40 mg IV every 8 hours. Incontinent of urine, unable to obtain accurate I and O. Dressings to the weeping lower extremities. Review of Systems Constitutional: Reports daytime sleepiness, Reports fever, Reports lethargy, Reports weakness, Reports weight gain Eyes: denies blurred vision, denies bulging eye, denies decreased vision Ears: deny: decreased hearing, ear discharge, earache, tinnitus Ears, nose, mouth and throat: Denies headache, Denies sore throat Cardiovascular: Reports as per HPI (The patient is nonambulatory for now. No shortness of breath at rest.), Reports edema (Lymphedema of the lower extremities bilaterally), Reports irregular heart beat Respiratory: Reports as per HPI Gastrointestinal: Reports as per HPI Genitourinary: Reports as per HPI, Reports erectile dysfunction, Reports genital pain, Reports incontinence, Reports testicular pain Musculoskeletal: Reports gait dysfunction, Reports limitation of motion, Reports muscle weakness Musculoskeletal: bilateral: ankle pain, ankle stiffness, ankle swelling Integumentary: Reports color changes, Reports darkening of skin, Reports dryness, Reports rash, Reports wounds Neurological: Reports gait dysfunction, Reports lack of coordination, Reports motor disturbance, Reports weakness Psychiatric: Reports as per HPI Endocrine: Reports as per HPI Hematologic/Lymphatic: Reports as per HPI Allergic/Immunologic: Reports as per HPI Past Medical History Past Medical History: Atrial Fibrillation, Heart Failure, Diabetes Mellitus, GERD/Reflux, Hypertension, Renal Disease, Skin Disorder Additional Past Medical History / Comment(s): Pt recently admitted to [facility] on 11/12/19 with acute CHF/tracheobronchitis. Other hx: Home oxygen at 3L/NC ATC, chronic Afib, NIDDM type II, neuropathy to bilateral feet, CKD stage III, chronic bilateral leg lymphadema with R leg weeping, current sore lower L leg- wrapped, past chronic lower extremity wounds/venous insufficiency, January 2019 severe cellulitis with multiple organisms bilateral lower legs/groin/scrotum with septic shock and UTI, past wounds on hips/buttocks, past upper GI bleed d/t coumadin/anemia, multiple gastric ulcers-duodenal and antral, hypothyroid. History of Any Multi-Drug Resistant Organisms: MRSA, Other MDRO Date of last positivie culture/infection: 08/21/17 MRSA MDRO Source:: leg rt Past Surgical History: Orthopedic Surgery Additional Past Surgical History / Comment(s): EGD, bilateral feet surgery for f ractures/pins/pins since removed, lower leg wounds I&Ds. Past Anesthesia/Blood Transfusion Reactions: No Reported Reaction Additional Past Anesthesia/Blood Transfusion Reaction / Comment(s): Pt has received blood in past without reaction. Past Psychological History: Anxiety Smoking Status: Former smoker - Past Family History Father Family Medical History: Diabetes Mellitus, Deep Vein Thrombosis (DVT) Additional Family Medical History / Comment(s): both legs amputated due to blood clots Mother Family Medical History: Deep Vein Thrombosis (DVT), Vascular Disorder Additional Family Medical History / Comment(s): lost both of legs, blood clot surgeries, stent in leg, carotid endardectomy Medications and Allergies Home Medications Medication Instructions Recorded Confirmed Type Hydrocodone/Acetaminophen [[place] 1 tab PO Q6H PRN 10/12/16 12/05/19 History 10-325] Pantoprazole Sodium [Protonix] 40 mg PO DAILY #30 tablet. 11/10/16 12/05/19 Rx Allopurinol [Zyloprim] 300 mg PO DAILY 10/21/18 12/05/19 History Ammonium Lactate Lotion 1 applic TOPICAL BID PRN 10/21/18 12/05/19 History [Lac-Hydrin 12% Lotion] Ergocalciferol (Vitamin D2) 50,000 unit PO MO 10/21/18 12/05/19 History [Drisdol] Ferrous Sulfate [Iron (65 MG 325 mg PO BID 10/21/18 12/05/19 History Elemental)] Nystatin [Nystop] 1 applic TOPICAL BID PRN 02/12/19 12/05/19 History Torsemide [Demadex] 20 mg PO BID #60 tab 02/25/19 12/05/19 Rx Levothyroxine Sodium [Synthroid] 125 mcg PO DAILY 11/12/19 12/05/19 History Methylphenidate HCl 20 mg PO DAILY 11/12/19 12/05/19 History Atorvastatin [Lipitor] 40 mg PO HS #30 tab 11/15/19 12/05/19 Rx Glimepiride [Amaryl] 4 mg PO DAILY 11/26/19 12/05/19 History Metoprolol Tartrate [Lopressor] 25 mg PO TID #0 11/30/19 12/05/19 Rx Allergies Allergy/AdvReac Type Severity Reaction Status Date / Time warfarin [From Coumadin] AdvReac caused GI Verified 12/05/19 22:27 bleed, affected kidney function wool AdvReac Unknown Verified 12/05/19 22:27 Physical Exam Vitals: Vital Signs Temp Pulse Pulse Resp BP BP Pulse Ox 12/06/19 12:28 87 12/06/19 12:15 83 12/06/19 11:50 77 20 119/79 95 12/06/19 08:00 97.5 F L 103 H 22 147/85 92 L 12/06/19 04:00 60 16 130/79 92 L 12/06/19 01:25 101 H 20 12/06/19 01:17 104 H 22 12/06/19 01:01 97 24 92 L 12/06/19 00:00 97 20 105/75 90 L 12/05/19 21:30 105 H 113/70 91 L 12/05/19 21:00 96 116/89 91 L 12/05/19 20:30 101 H 107/76 92 L 12/05/19 20:00 87 26 H 106/70 94 L 12/05/19 19:30 86 24 118/105 93 L 12/05/19 19:03 97.1 F L 75 30 H 118/105 87 L Intake and Output 12/06/19 12/06/19 12/06/19 06:59 14:59 22:59 Intake Total 540 780 Output Total 2 Balance 540 778 Intake: Oral 540 780 Output: Urine 2 Other: Voiding Method Diaper Weight 203.12 kg 203.12 kg General appearance: alert, pleasant 54-year-old gentleman, in no apparent distress, the patient, nonacute distal distress, currently BMI 56 Head exam was generally normal. There was no scleral icterus or corneal arcus. Mucous membranes were moist. Neck was supple and without jugular venous distension, thyromegaly, or carotid bruits. Carotids were easily palpable bilaterally. There was no adenopathy. Eye exam: Present: normal appearance, PERRL, EOMI. Absent: scleral icterus, co njunctival injection, periorbital swelling ENT exam: Present: normal exam, mucous membranes moist, the patient has poor dentition and several missing teeth Respiratory exam: Present: Crackles in the posterior bases. Absent: respiratory distress, wheezes, rhonchi, stridor Cardiovascular Exam: Present: normal rhythm, tachycardia, normal heart sounds. Absent: systolic murmur, diastolic murmur, rubs, gallop, clicks GI/Abdominal exam: Present: soft, normal bowel sounds. Absent: distended, tenderness, guarding, rebound, rigid exam: Present: scrotal swelling (Severe), in addition to erythema involving the scrotal area extending to the thighs bilaterally and the area is warm and red. No masses. Extremities exam: Present: full ROM, normal capillary refill, other (Bilateral lower legs are edematous and weeping). Absent: normal inspection, tenderness, pedal edema, joint swelling, calf tenderness Neurological exam: Present: alert, oriented X3, CN II-XII intact Psychiatric exam: Present: normal affect, normal mood Skin exam: Present: warm, dry, intact, normal color. The patient has chronic lymphedema lower extremities bilaterally. The wound in the left lower extremity are quite superficial and noninfected this point in time. Results - Laboratory Findings CBC and BMP: 12/05/19 19:30 12/06/19 06:35 ABG ABG pH 7.33 (7.35-7.45) L 12/06/19 01:29 ABG pCO2 77 mmHg (35-45) H* 12/06/19 01:29 ABG pO2 75 mmHg (83-108) L 12/06/19 01:29 ABG O2 Saturation 93.8 % (94-97) L 12/06/19 01:29 PT/INR, D-dimer PT 11.5 sec (9.0-12.0) 12/05/19 20:11 INR 1.1 (<1.2) 12/05/19 20:11 Abnormal lab findings: Abnormal Labs 12/05/19 12/05/19 12/06/19 19:30 19:30 01:29 Hct 56.1 H MCHC 28.6 L RDW 17.4 H Lymphocytes # 0.7 L ABG pH 7.33 L ABG pCO2 77 H* ABG pO2 75 L ABG HCO3 40 H* ABG Total CO2 42 H ABG O2 Saturation 93.8 L Sodium Potassium Chloride 92 L Carbon Dioxide 39 H BUN 50 H Creatinine 1.67 H Glucose POC Glucose (mg/dL) Alkaline Phosphatase 268 H Albumin 3.3 L 12/06/19 12/06/19 12/06/19 06:24 06:35 11:57 Hct MCHC RDW Lymphocytes # ABG pH ABG pCO2 ABG pO2 ABG HCO3 ABG Total CO2 ABG O2 Saturation Sodium 135 L Potassium 5.9 H Chloride 94 L Carbon Dioxide 34 H BUN 52 H Creatinine 1.64 H Glucose 116 H POC Glucose (mg/dL) 109 H 193 H Alkaline Phosphatase Albumin - Diagnostic Findings Chest x-ray: image reviewed Assessment and Plan Assessment: 1 Dyspnea secondary to acute exacerbation of diastolic congestive heart failure with right lower lobe atelectasis/pleural effusion 2 Acute on chronic hypercapnic respiratory failure secondary to above with suspected obstructive sleep apnea with obesity/hypoventilation syndrome however the patient has refused to wear a CPAP Mask in the past. 3 Recent discharge following heart failure exacerbation 4 Chronic kidney disease stage 3-4 with an acute kidney injury on top of chronic renal failure. Current creatinine 1.64. Unable to obtain accurate output is a patient is incontinent 5 Hyperkalemia secondary to above 6 right lower extremity lymphedema with weeping 7 chronic ulceration in lower extremity bilaterally 8 chronic lymphedema of the lower extremity is bilaterally 9 Morbid obesity with a BMI of 56 10 chronic atrial fibrillation rate controlled not an anticoagulation due to previous episodes of GI bleed 11 hypothyroidism 12 diabetes mellitus 13 hypertension Plan The patient was seen and evaluated by Dr. Martinez Chest x-ray and labs reviewed ABGs reviewed the patient is hypercapnic and would benefit from BiPAP if tolerated the mask Currently alert and oriented in no distress on 4 L nasal cannula Continue bronchodilator Continue IV diuretics Continue wound care to the lower extremities We'll continue to follow I, the cosigning physician, performed a history & physical examination of the patient. Lungs sounds have crackles in the bilateral posterior bases, diminished. Maintaining good O2 saturations in the 90s on 4 L/m per nasal cannula. I discussed the assessment and plan of care with my nurse practitioner, Dina Mcguire. I attest to the above note as dictated by her. Time with Patient: Greater than 30
[2019-12-06 17:02] LABS: Glucose,Whole Blood 80 mg/dL (75-99)
[2019-12-06 20:18] LABS: Glucose,Whole Blood 122 mg/dL (75-99)
[2019-12-07] MEDS: HYDROcodone/APAP 10-325MG 1 EACH TAB PO PRN ×3 (05:17→20:51)
[2019-12-07] MEDS: FUROSEMIDE 10 MG/ML 4 ML VIAL IV SCH ×3 (05:19→20:52)
[2019-12-07] MEDS: LEVOTHYROXINE 125 MCG TAB PO SCH (05:19)
[2019-12-07 06:31] LABS: Glucose,Whole Blood 106 mg/dL (75-99)
[2019-12-07] MEDS: INSULIN ASPART (NovoLOG) 100 UNIT/ML VIAL SQ SCH ×4 (06:37→21:20)
[2019-12-07 07:00] LABS: Calcium 8.8 mg/dL (8.4-10.2); Potassium 4.5 mmol/L (3.5-5.1)
[2019-12-07] MEDS: IPRATROPIUM-ALBUTEROL 3 ML NEB INHALATION PRN ×4 (07:09→21:06)
--- NOTE | 2019-12-07 07:37 | XR ---
EXAMINATION TYPE: XR chest 1V DATE OF EXAM: 12/07/2019 COMPARISON: 12/05/2019 HISTORY: Shortness of breath TECHNIQUE: Single frontal view of the chest is obtained. FINDINGS: Bilateral interstitial pattern with consolidation pleural effusion. Heart is enlarged. No significant interval change. No pneumothorax. IMPRESSION: Stable x-ray correlate for pneumonia otherwise consider CHF.
--- NOTE | 2019-12-07 08:38 | P.CRDCN ---
History of Present Illness Consult date: 12/07/19 Requesting physician: Cindy Ellington Chief complaint: Shortness of breath History of present illness: This is a 54-year-old gentleman with past medical history significant for chronic atrial fibrillation, significant blood no ulcers with GI bleeding in the past, diabetes, hypertension, chronic bilateral lymphedema with weeping of the right thigh, ulcer of the left lower leg which is wrapped,, morbid obesity, chronic renal failure stage III, chronic diastolic congestive heart failure. He was recently in the hospital, discharged 5 days ago. At that time admitted for congestive heart failure and tracheobronchitis. Patient has a visiting physician that comes to his home. Readmitted with symptoms of shortness of breath. The patient was seen and examined this morning on the cardiac unit. He is quite sleepy this morning, difficult to arouse. Blood pressure 134/90 with a heart rate in the 90s, 95% on 4 L of oxygen. Arterial blood gases on 36% FiO2 revealed a pO2 of 75, pCO2 77, pH 7.33. Sodium 135, potassium 5.9, creatinine 1.6, white blood cell count 6.8, hemoglobin 16. BNP level 3370. Troponin 0.018. Influenza A and B were negative. Patient's most recent echocardiogram with Doppler study was performed in October, revealed an ejection fraction of 55%. Initial chest x-ray showed right lower lobe pneumonia and pleural fluid which is increased significantly as compared with prior exam. Repeat chest x- ray is stable, correlate for pneumonia, otherwise consider CHF. EKG shows atria l fibrillation with incomplete right bundle branch block pattern. Past Medical History Past Medical History: Atrial Fibrillation, Heart Failure, Diabetes Mellitus, GERD/Reflux, Hypertension, Renal Disease, Skin Disorder Additional Past Medical History / Comment(s): Pt recently admitted to [facility] on 11/12/19 with acute CHF/tracheobronchitis. Other hx: Home oxygen at 3L/NC ATC, chronic Afib, NIDDM type II, neuropathy to bilateral feet, CKD stage III, chronic bilateral leg lymphadema with R leg weeping, current sore lower L leg-wr apped, past chronic lower extremity wounds/venous insufficiency, January 2019 severe cellulitis with multiple organisms bilateral lower legs/groin/scrotum with septic shock and UTI, past wounds on hips/buttocks, past upper GI bleed d/t coumadin/anemia, multiple gastric ulcers-duodenal and antral, hypothyroid. History of Any Multi-Drug Resistant Organisms: MRSA, Other MDRO Date of last positivie culture/infection: 08/21/17 MRSA MDRO Source:: leg rt Past Surgical History: Orthopedic Surgery Additional Past Surgical History / Comment(s): EGD, bilateral feet surgery for fractures/pins/pins since removed, lower leg wounds I&Ds. Past Anesthesia/Blood Transfusion Reactions: No Reported Reaction Additional Past Anesthesia/Blood Transfusion Reaction / Comment(s): Pt has received blood in past without reaction. Past Psychological History: Anxiety Smoking Status: Former smoker - Past Family History Father Family Medical History: Diabetes Mellitus, Deep Vein Thrombosis (DVT) Additional Family Medical History / Comment(s): both legs amputated due to blood clots Mother Family Medical History: Deep Vein Thrombosis (DVT), Vascular Disorder Additional Family Medical History / Comment(s): lost both of legs, blood clot surgeries, stent in leg, carotid endardectomy Medications and Allergies Home Medications Medication Instructions Recorded Confirmed Type Hydrocodone/Acetaminophen [[place] 1 tab PO Q6H PRN 10/12/16 12/05/19 History 10-325] Pantoprazole Sodium [Protonix] 40 mg PO DAILY #30 tablet. 11/10/16 12/05/19 Rx Allopurinol [Zyloprim] 300 mg PO DAILY 10/21/18 12/05/19 History Ammonium Lactate Lotion 1 applic TOPICAL BID PRN 10/21/18 12/05/19 History [Lac-Hydrin 12% Lotion] Ergocalciferol (Vitamin D2) 50,000 unit PO MO 10/21/18 12/05/19 History [Drisdol] Ferrous Sulfate [Iron (65 MG 325 mg PO BID 10/21/18 12/05/19 History Elemental)] Nystatin [Nystop] 1 applic TOPICAL BID PRN 02/12/19 12/05/19 History Torsemide [Demadex] 20 mg PO BID #60 tab 02/25/19 12/05/19 Rx Levothyroxine Sodium [Synthroid] 125 mcg PO DAILY 11/12/19 12/05/19 History Methylphenidate HCl 20 mg PO DAILY 11/12/19 12/05/19 History Atorvastatin [Lipitor] 40 mg PO HS #30 tab 11/15/19 12/05/19 Rx Glimepiride [Amaryl] 4 mg PO DAILY 11/26/19 12/05/19 History Metoprolol Tartrate [Lopressor] 25 mg PO TID #0 11/30/19 12/05/19 Rx Allergies Allergy/AdvReac Type Severity Reaction Status Date / Time warfarin [From Coumadin] AdvReac caused GI Verified 12/05/19 22:27 bleed, affected kidney function wool AdvReac Unknown Verified 12/05/19 22:27 Physical Exam Vitals: Vital Signs Temp Pulse Pulse Resp BP Pulse Ox 12/07/19 07:20 82 12/07/19 07:09 82 93 L 12/07/19 04:00 97.9 F 64 22 110/76 94 L 12/07/19 00:00 97.7 F 67 20 126/74 94 L 12/06/19 21:11 81 18 12/06/19 21:01 79 18 12/06/19 20:00 97.7 F 78 20 114/69 96 12/06/19 17:19 84 18 12/06/19 17:11 88 18 12/06/19 16:00 97.8 F 95 20 109/74 97 12/06/19 12:28 87 12/06/19 12:15 83 12/06/19 11:50 77 20 119/79 95 Intake and Output 12/06/19 12/07/19 12/07/19 22:59 06:59 14:59 Intake Total 1047 340 Output Total 0 Balance 1047 340 Intake: Oral 340 Tube Feeding 1047 Output: Urine 0 Other: Voiding Method Diaper Diaper # Voids 2 2 Weight 203.1 kg PHYSICAL EXAMINATION: HEENT: Head is atraumatic, normocephalic. Pupils equal, round. Neck is supple. There is no elevated jugular venous pressure. HEART EXAMINATION: Heart sounds irregularly irregular, distant, S1 and S2 normal. No murmur or gallop heard. CHEST EXAMINATION: Lungs are diminished anteriorly. Significant chest wall tenderness on palpation noted under left breast. Bilateral scattered crackles. ABDOMEN: Soft, obese, nontender. Bowel sounds are heard. No organomegaly noted. EXTREMITIES: Patient has chronic lymphedema to the lower extremities bilaterally, the wound to left lower extremity, dressed. 2+ edema. NEUROLOGIC patient is awake, alert and oriented x3. Results 12/05/19 19:30 12/07/19 06:19 Comprehensive Metabolic Panel 12/07/19 Range/Units 06:19 Sodium 136 L (137-145) mmol/L Potassium 4.5 (3.5-5.1) mmol/L Chloride 90 L (98-107) mmol/L Carbon Dioxide 40 H (22-30) mmol/L BUN 54 H (9-20) mg/dL Creatinine 1.77 H (0.66-1.25) mg/dL Glucose 111 H (74-99) mg/dL Calcium 8.8 (8.4-10.2) mg/dL Current Medications Generic Name Dose Route Start Last Admin Trade Name Freq PRN Reason Stop Dose Admin Hydrocodone Bitart/Acetaminophen 1 each 12/06/19 00:31 12/07/19 05:17 [place] 10 PO 1 each Q6H PRN Administration Pain Albuterol/Ipratropium 3 ml 12/06/19 00:31 12/07/19 07:09 Duoneb 0.5 Mg-3 Mg/3 Ml Soln INHALATION 3 ml RT-Q2H PRN Administration Shortness Of Breath Or Wheezing Allopurinol 300 mg 12/06/19 09:00 12/06/19 10:02 Zyloprim PO 300 mg DAILY BENITO Administration Atorvastatin Calcium 40 mg 12/06/19 00:45 12/06/19 21:02 Lipitor PO 40 mg HS BENITO Administration Ferrous Sulfate 325 mg 12/06/19 00:45 12/06/19 21:02 Feosol PO 325 mg BID BENITO Administration Furosemide 40 mg 12/05/19 21:15 12/07/19 05:19 Lasix IV 40 mg Q8H BENITO Administration Heparin Sodium (Porcine) 5,000 unit 12/06/19 08:00 12/06/19 23:21 Heparin SQ 5,000 unit Q8HR BENITO Administration Insulin Aspart 0 unit 12/06/19 07:30 12/07/19 06:37 Novolog SQ Not Given [facility]S [facility] Protocol Levothyroxine Sodium 125 mcg 12/06/19 06:30 12/07/19 05:19 Synthroid PO 125 mcg DAILY@0630 BENITO Administration Metoprolol Tartrate 25 mg 12/06/19 00:45 12/06/19 21:21 Lopressor PO 25 mg TID BENITO Administration Pantoprazole Sodium 40 mg 12/06/19 09:00 12/06/19 10:02 Protonix PO 40 mg DAILY BENITO Administration Intake and Output 12/06/19 12/07/19 12/07/19 22:59 06:59 14:59 Intake Total 1047 340 Output Total 0 Balance 1047 340 Intake: Oral 340 Tube Feeding 1047 Output: Urine 0 Other: Voiding Method Diaper Diaper # Voids 2 2 Weight 203.1 kg 12/05/19 19:30 12/07/19 06:19 EKG Interpretations (text) EKG shows atrial fibrillation with incomplete right bundle branch Assessment and Plan Plan: Assessment and plan #1 shortness of breath secondary to acute exacerbation of diastolic congestive heart failure with evidence of right lower lobe atelectasis/pleural effusion #2 chronic persistent atrial fibrillation #3 acute on chronic respiratory failure #4 sleep apnea with obesity/hypoventilation syndrome, patient refuses to wear CPAP #5 chronic kidney disease stage 3-4 #6 chronic lower extremity lymphedema with weeping #7 hyperkalemia likely secondary to kidney disease #8 morbid obesity, BMI 56 #9 hypothyroidism #10 diabetes #11 hypertension Plan Patient had a recent echocardiogram with Doppler study performed in October of this year so we will not repeat an echo at this time, the LV function at that t ryan was 55%. We will continue the patient on IV Lasix, monitoring intake and output along with daily weights and daily lytes BUN and creatinine. Continue metoprolol, patient is currently not on an TRUDY inhibitor because of chronic abnormal renal function. No Aldactone at this time because of hyperkalemia. Influenza A and B were negative. Further recommendations to follow. DNP note has been reviewed, I agree with a documented findings and plan of care. Patient was seen and examined.
[2019-12-07 08:48] LABS: Anisocytosis Slight; HCT 53.7 % (39.0-53.0); HGB 15.5 gm/dL (13.0-17.5); Hypochromasia Marked; MCH 27.5 pg (25.0-35.0); MCHC 28.8 g/dL (31.0-37.0); MCV 95.4 fL (80.0-100.0); Mean Platelet Volume 9.4; Platelet Count 185 k/uL (150-450); RBC 5.63 m/uL (4.30-5.90); RDW 17.5 % (11.5-15.5); WBC 6.2 k/uL (3.8-10.6)
[2019-12-07] MEDS: HEPARIN SODIUM,PORCINE 5,000 UNIT/ML 1 ML VIAL SQ SCH ×3 (08:55→23:29)
[2019-12-07] MEDS: PANTOPRAZOLE 40 MG TABLET PO SCH (08:55)
[2019-12-07] MEDS: FERROUS SULFATE 325 MG TAB PO SCH ×2 (08:55→20:52)
[2019-12-07] MEDS: METOPROLOL TARTRATE 25 MG TAB PO SCH (08:55)
[2019-12-07] MEDS: ALLOPURINOL 300 MG TAB PO SCH (08:55)
[2019-12-07 09:12] LABS: Band Neutrophils % 1 %; Eosinophils # (M) 0.12 k/uL (0-0.7); Lymphocytes # (M) 0.62 k/uL (1.0-4.8); Neutrophils % (M) 79 %; Nucleated Red Blood Cells 0 /100 WBC (0-0); Total Cells Counted 100
--- NOTE | 2019-12-07 09:51 | US ---
EXAMINATION TYPE: US venous doppler duplex LE BI DATE OF EXAM: 12/07/2019 9:34 AM COMPARISON: 02/14/2019 CLINICAL HISTORY: Unable to get pulses. . DVT unable to get pulses.Exam limited to morbidity obcesity 447 pounds. SIDE PERFORMED: Bilateral TECHNIQUE: The lower extremity deep venous system is examined utilizing real time linear array sonog cristian with graded compression, doppler sonography and color-flow sonography. VESSELS IMAGED: External Iliac Vein (EIV) Common Femoral Vein Deep Femoral Vein Greater Saphenous Vein * Femoral Vein Popliteal Vein Patient unable to tolerate compressions bilaterally. [employer] was seen with doppler bilaterally. Right Leg: Negative for DVT in vessels imaged. Left Leg: Negative for DVT in vessels imaged. Very limited exam due to body habitus. IMPRESSION: 1. Markedly Limited exam demonstrates no diagnostic evidence of DVT. Note is made that there are area s that the patient could not tolerate compression and therefore compression views cannot be obtained further limiting the exam.
--- NOTE | 2019-12-07 10:23 | P.PN ---
Subjective Progress Note Date: 12/07/19 Patient seen and examined at bedside, patient is morbidly obese, creatinine at 1.77 serum potassium 4.5, serum sodium 136. Influenza A and B were negative in T proBNP was 3370, initial chest x-ray showed pneumonia versus CHF , previous echocardiogram 11/13 showing preserved LVEF with a moderately enlarged right ventricle. ABG shows persistence of respiratory acidosis with hypercapnia. Patient with decent saturations on 4 L via nasal cannula. Nursing reporting today left lower extremity appearing more erythematous and swollen but able to hear pulses with Dopplers and unable to hear pulses in the right lower extremity with Dopplers. Objective - Vital Signs Vital signs: Vital Signs Temp 97.9 F 12/07/19 08:24 Pulse 95 12/07/19 08:24 Resp 18 12/07/19 08:24 BP 134/92 12/07/19 08:24 Pulse Ox 95 12/07/19 08:24 Intake & Output 12/06/19 12/07/19 12/07/19 18:59 06:59 18:59 Intake Total 780 1047 340 Output Total 2 0 Balance 778 1047 340 Weight 203.12 kg 203.1 kg Intake: Oral 780 340 Tube Feeding 1047 Output: Urine 2 0 Other: Voiding Method Diaper Diaper Diaper # Voids 2 - Exam Constitutional: No acute distress, conversant, pleasant, morbidly obese Eyes: Anicteric sclerae, moist conjunctiva, Pupils equal round reactive to light ENMT: NC/AT Oropharynx clear, no erythema, exudates Neck: Supple, FROM, no masses, or JVD No carotid bruits No thyromegaly Lungs: Diminished breath sounds at lung bases bilaterally no wheezing Decreased percussion note to left lower lung Normal respiratory effort, no accessory muscle use Cardiovascular: Heart regular in rate and rhythm, No murmurs, gallops, or rubs +3 bilateral peripheral edema Abdominal: Soft Nontender, no guarding, rebound or rigidity Abdomen moving with respiration Normoactive bowel sounds Obese limiting exam, periumbilical hernia soft to the touch nontender Skin: Chronic dermatitis skin changes over bilateral legs, otherwise Normal temperature, tone, texture, turgor No induration No subcutaneous nodules Weeping blisters over the lateral right thigh Extremities: No digital cyanosis No clubbing Pedal pulses intact and symmetrical Radial pulses intact and symmetrical No calf tenderness Psychiatric: Alert and oriented to person, place and time Appropriate affect fair judgement Neuro Muscles Strength 4/5 in all 4 extremities Sensation to light touch grossly present throughout Cranial nerves II-XII grossly intact No focal sensory deficits Lymphatics: no palpable cervical or supraclavicular , or inguinal lymph nodes - Labs CBC & Chem 7: 12/07/19 06:19 12/07/19 06:19 Labs: Abnormal Lab Results - Last 24 Hours (Table) 12/06/19 12/06/19 12/07/19 Range/Units 11:57 20:17 06:19 Hct (39.0-53.0) % MCHC (31.0-37.0) g/dL RDW (11.5-15.5) % Lymphocytes # (Manual) (1.0-4.8) k/uL Sodium 136 L (137-145) mmol/L Chloride 90 L (98-107) mmol/L Carbon Dioxide 40 H (22-30) mmol/L BUN 54 H (9-20) mg/dL Creatinine 1.77 H (0.66-1.25) mg/dL Glucose 111 H (74-99) mg/dL POC Glucose (mg/dL) 193 H 122 H (75-99) mg/dL 12/07/19 12/07/19 Range/Units 06:19 06:29 Hct 53.7 H (39.0-53.0) % MCHC 28.8 L (31.0-37.0) g/dL RDW 17.5 H (11.5-15.5) % Lymphocytes # (Manual) 0.62 L (1.0-4.8) k/uL Sodium (137-145) mmol/L Chloride (98-107) mmol/L Carbon Dioxide (22-30) mmol/L BUN (9-20) mg/dL Creatinine (0.66-1.25) mg/dL Glucose (74-99) mg/dL POC Glucose (mg/dL) 106 H (75-99) mg/dL Microbiology - Last 24 Hours (Table) 12/05/19 19:30 Blood Culture - Preliminary Blood No Growth after 24 hours Assessment and Plan Assessment: Acute on chronic respiratory failure * Multifactorial acute on chronic diastolic CHF exacerbation superimposed on possible pneumonia and obesity hypoventilation syndrome * ABG indicating respiratory acidosis * Patient has been noncompliant with BiPAP * Cardiology and pulmonary have been consulted for further recommendations * Portable chest x-ray ordered for the morning Acute on chronic diastolic CHF * Echo previously conducted 11/13 showing preserved LVEF and a moderately dilated right ventricle * Continue Lasix 40 mg IV q 8, with daily weights., Fluid restriction * We'll plan to consult cardiology for further recommendations Pneumonia * Continue current antibiotic regimen with Rocephin and azithromycin * Continue breathing treatments Hyperkalemia * Resolved after Kayexalate yesterday Chronic kidney disease stage III * Appears to have stable kidney disease * Avoid nephrotoxic agents Type 2 diabetes * A1c approximately 6.53 weeks ago * Continue correctional scale insulin coverage Vascular surgery consulted for possible peripheral vascular disease Chronic lymphedema * Check bilateral lower extremity Dopplers to rule out DVT, * Continue diuresis with Artur wraps bilaterally Disposition * Continue current plan anticipated discharge 2-3days
[2019-12-07] MEDS ORDERED: METOPROLOL TARTRATE 25 MG TAB PO STA (11:11)
--- NOTE | 2019-12-07 11:12 | P.GSCN ---
History of Present Illness Consult date: 12/07/19 Reason for Consult: right lower extremity cold extremity and absent doppler signals History of present illness: This is a 54-year-old gentleman with past medical history significant for chronic atrial fibrillation, diabetes, hypertension, chronic bilateral lymphedema with weeping of the right thigh, ulcer of the left lower leg which is wrapped, morbid obesity, chronic renal failure stage III, chronic diastolic congestive heart failure. He was recently in the hospital for congestive heart failure and tracheobronchitis and was discharged 5 days ago. Patient has a visiting physician that comes to his home. Readmitted with symptoms of shortness of breath. He states history of lower extremity intermittent coolness but denies any lower extremity pain at rest or with ambulation. Patient states he used to ambulate but recently has been bed bound. He denies any numbness or tingling in his feet or lower extremities. He was recently evaluated by the nursing staff and his right lower extremity is cooler than the left and they were unable to obtain Doppler signals. Currently he denies any pain in his calf or foot. He is still complaining of shortness of breath without any complaints of chest pain, fevers or chills. Review of Systems All systems: negative (What is mentioned in the HPI past medical history) Past Medical History Past Medical History: Atrial Fibrillation, Heart Failure, Diabetes Mellitus, GERD/Reflux, Hypertension, Renal Disease, Skin Disorder Additional Past Medical History / Comment(s): Pt recently admitted to [facility] on 11/12/19 with acute CHF/tracheobronchitis. Other hx: Home oxygen at 3L/NC ATC, chronic Afib, NIDDM type II, neuropathy to bilateral feet, CKD stage III, chronic bilateral leg lymphadema with R leg weeping, current sore lower L leg- wrapped, past chronic lower extremity wounds/venous insufficiency, January 2019 severe cellulitis with multiple organisms bilateral lower legs/groin/scrotum with septic shock and UTI, past wounds on hips/buttocks, past upper GI bleed d/t coumadin/anemia, multiple gastric ulcers-duodenal and antral, hypothyroid. History of Any Multi-Drug Resistant Organisms: MRSA, Other MDRO Year Discovered:: 08/21/17 MRSA MDRO Source:: leg rt Past Surgical History: Orthopedic Surgery Additional Past Surgical History / Comment(s): EGD, bilateral feet surgery for fractures/pins/pins since removed, lower leg wounds I&Ds. Past Anesthesia/Blood Transfusion Reactions: No Reported Reaction Additional Past Anesthesia/Blood Transfusion Reaction / Comm: Pt has received blood in past without reaction. Past Psychological History: Anxiety Smoking Status: Former smoker - Past Family History Father Family Medical History: Diabetes Mellitus, Deep Vein Thrombosis (DVT) Additional Family Medical History / Comment(s): both legs amputated due to blood clots Mother Family Medical History: Deep Vein Thrombosis (DVT), Vascular Disorder Additional Family Medical History / Comment(s): lost both of legs, blood clot surgeries, stent in leg, carotid endardectomy Medications and Allergies Home Medications Medication Instructions Recorded Confirmed Type Hydrocodone/Acetaminophen [Frisco 1 tab PO Q6H PRN 10/12/16 12/05/19 History 10-325] Pantoprazole Sodium [Protonix] 40 mg PO DAILY #30 tablet. 11/10/16 12/05/19 Rx Allopurinol [Zyloprim] 300 mg PO DAILY 10/21/18 12/05/19 History Ammonium Lactate Lotion 1 applic TOPICAL BID PRN 10/21/18 12/05/19 History [Lac-Hydrin 12% Lotion] Ergocalciferol (Vitamin D2) 50,000 unit PO MO 10/21/18 12/05/19 History [Drisdol] Ferrous Sulfate [Iron (65 MG 325 mg PO BID 10/21/18 12/05/19 History Elemental)] Nystatin [Nystop] 1 applic TOPICAL BID PRN 02/12/19 12/05/19 History Torsemide [Demadex] 20 mg PO BID #60 tab 02/25/19 12/05/19 Rx Levothyroxine Sodium [Synthroid] 125 mcg PO DAILY 11/12/19 12/05/19 History Methylphenidate HCl 20 mg PO DAILY 11/12/19 12/05/19 History Atorvastatin [Lipitor] 40 mg PO HS #30 tab 11/15/19 12/05/19 Rx Glimepiride [Amaryl] 4 mg PO DAILY 11/26/19 12/05/19 History Metoprolol Tartrate [Lopressor] 25 mg PO TID #0 11/30/19 12/05/19 Rx Allergies Allergy/AdvReac Type Severity Reaction Status Date / Time warfarin [From Coumadin] AdvReac caused GI Verified 12/05/19 22:27 bleed, affected kidney function wool AdvReac Unknown Verified 12/05/19 22:27 Surgical - Exam Vital Signs Temp Pulse Resp BP Pulse Ox 97.1 F L 75 30 H 118/105 87 L 12/05/19 19:03 12/05/19 19:03 12/05/19 19:03 12/05/19 19:03 12/05/19 19:03 Palpable PT and DP pulse the left foot. Foot is warm with dependent rubor noted. Good capillary refill. Right lower extremity without palpable DP or PT pulses. There is monophasic signal in the PT with slowed capillary refill. No tenderness to palpation of the calf. - General well developed, well nourished, no pain, chronically ill, obese (Morbidly obese) - Eyes PERRL, normal ocular movement - ENT normal pinna, normal nares - Neck no masses, no bruits - Respiratory no normal expansion (Poor inspiration), no normal respiratory effort - Cardiovascular Rhythm: irregularly irregular - Abdomen Abdomen: soft, non tender - Integumentary Chronic lymphedema bilateral lower extremities with skin discoloration. Wounds noted on the left lower extremity which have dressings in place. There are multiple dressings noted in the right thigh for weeping edema. 2+ pitting edema noted bilateral lower extremities. - Neurologic normal sensation - Psychiatric oriented to time, oriented to person, oriented to place, speech is normal Results - Labs 12/07/19 06:19 12/07/19 06:19 Abnormal Lab Results - Last 24 Hours (Table) 12/06/19 12/06/19 12/07/19 Range/Units 11:57 20:17 06:19 Hct (39.0-53.0) % MCHC (31.0-37.0) g/dL RDW (11.5-15.5) % Lymphocytes # (Manual) (1.0-4.8) k/uL Sodium 136 L (137-145) mmol/L Chloride 90 L (98-107) mmol/L Carbon Dioxide 40 H (22-30) mmol/L BUN 54 H (9-20) mg/dL Creatinine 1.77 H (0.66-1.25) mg/dL Glucose 111 H (74-99) mg/dL POC Glucose (mg/dL) 193 H 122 H (75-99) mg/dL 12/07/19 12/07/19 Range/Units 06:19 06:29 Hct 53.7 H (39.0-53.0) % MCHC 28.8 L (31.0-37.0) g/dL RDW 17.5 H (11.5-15.5) % Lymphocytes # (Manual) 0.62 L (1.0-4.8) k/uL Sodium (137-145) mmol/L Chloride (98-107) mmol/L Carbon Dioxide (22-30) mmol/L BUN (9-20) mg/dL Creatinine (0.66-1.25) mg/dL Glucose (74-99) mg/dL POC Glucose (mg/dL) 106 H (75-99) mg/dL Microbiology - Last 24 Hours (Table) 12/05/19 19:30 Blood Culture - Preliminary Blood No Growth after 24 hours Diabetes panel 12/07/19 Range/Units 06:19 Sodium 136 L (137-145) mmol/L Potassium 4.5 (3.5-5.1) mmol/L Chloride 90 L (98-107) mmol/L Carbon Dioxide 40 H (22-30) mmol/L BUN 54 H (9-20) mg/dL Creatinine 1.77 H (0.66-1.25) mg/dL Glucose 111 H (74-99) mg/dL Calcium 8.8 (8.4-10.2) mg/dL Calcium panel 12/07/19 Range/Units 06:19 Calcium 8.8 (8.4-10.2) mg/dL Pituitary panel 12/07/19 Range/Units 06:19 Sodium 136 L (137-145) mmol/L Potassium 4.5 (3.5-5.1) mmol/L Chloride 90 L (98-107) mmol/L Carbon Dioxide 40 H (22-30) mmol/L BUN 54 H (9-20) mg/dL Creatinine 1.77 H (0.66-1.25) mg/dL Glucose 111 H (74-99) mg/dL Calcium 8.8 (8.4-10.2) mg/dL Adrenal panel 12/07/19 Range/Units 06:19 Sodium 136 L (137-145) mmol/L Potassium 4.5 (3.5-5.1) mmol/L Chloride 90 L (98-107) mmol/L Carbon Dioxide 40 H (22-30) mmol/L BUN 54 H (9-20) mg/dL Creatinine 1.77 H (0.66-1.25) mg/dL Glucose 111 H (74-99) mg/dL Calcium 8.8 (8.4-10.2) mg/dL Assessment and Plan Assessment: #1 right lower extremity severe peripheral arterial disease #2 chronic lower extremity lymphedema with weeping wounds #3 chronic lower extremity venous insufficiency #4 chronic kidney disease stage III #5 chronic persistent atrial fibrillation #6 diabetes #7 morbid obesity with BMI of 56 #8 shortness of breath secondary to acute exacerbation of congestive heart failure Plan: Continue current medical management. At this time there is no indication for any surgical intervention for his right lower extremity peripheral arterial disease which is likely chronic. Recommend aspirin and statin therapy if able to take. He is to continue local wound care and elevation of his lower extremities as well as compression if he can tolerate. We will obtain lower extremity arterial Doppler as an outpatient unless patient starts exhibiting symptoms of pain in his right lower extremity. Thank you for allowing us to participate in your patient's care.
--- NOTE | 2019-12-07 11:43 | P.PN ---
Subjective Progress Note Date: 12/07/19 Principal diagnosis: Acute exacerbation of diastolic congestive heart failure This is a very pleasant 54-year-old gentleman who was recently discharged from here 5 days prior to presenting to the emergency room with shortness of breath. He had been treated for congestive heart failure and tracheobronchitis. He is morbidly obese, suspect obesity/hypoventilation syndrome/obstructive sleep apnea however the patient has refused to wear a mask in the past, hypothyroidism, chronic atrial fibrillation, diabetes mellitus, neuropathy the bilateral feet, chronic kidney disease stage III, chronic bilateral leg lymphedema with weeping of the right thigh, ulcer of the left lower leg which is wrapped. He had been seen here by our group back in January 2019 while in the intensive care unit for sepsis secondary to severe cellulitis with multiple organisms of the lower extremities, groin and scrotum with septic shock and UTI. He has visiting physicians coming to the house. He is seen in consultation on the selective care unit. He is currently awake and alert in no acute distress. He is maintaining O2 saturations in the mid 90s on 4 L/m per nasal cannula. He has been afebrile. Hemodynamically stable. Arterial blood gases on 36% FiO2 revealed a PaO2 of 75, pCO2 77, pH 7.33. Sodium 135. Potassium 5.9. Creatinine 1.64. White count 6.8. Hemoglobin 16.0. Chest x-ray reveals a right lower lobe pneumonia and pleural fluid increases significantly compared to last exam on 11/26/2019. Mild heart failure is possible. He has been initiated on DuoNeb inhalations, Lasix 40 mg IV every 8 hours. Incontinent of urine, unable to obtain accurate I and O. Dressings to the weeping lower extremities. The patient is seen today 12/07/2019 in follow-up on the regular medical floor. He is awake and alert in no acute distress. Resting in bed. Maintaining O2 saturation in the mid 90s on 4 L/m per nasal cannula. He's been afebrile. Hemodynamically stable. Continues with significant redness and edema in lower extremities. Vascular surgery consulted no plans for intervention. White count 6.2. Hemoglobin 15.5. Sodium 136. Potassium 4.5. Bicarb 40. Creatinine 1.77. He is continued on IV diuretics in the form of Lasix 40 mg every 8 hours. BMI 56 kg. The patient is incontinent unable to determine accurate I&O. Weight the same. Objective - Vital Signs Vital signs: Vital Signs Temp 97.9 F 12/07/19 08:24 Pulse 95 12/07/19 08:24 Resp 18 12/07/19 08:24 BP 134/92 12/07/19 08:24 Pulse Ox 95 12/07/19 08:24 Intake & Output 12/06/19 12/07/19 12/07/19 18:59 06:59 18:59 Intake Total 780 1047 340 Output Total 2 0 Balance 778 1047 340 Weight 203.12 kg 203.1 kg 203.1 kg Intake: Oral 780 340 Tube Feeding 1047 Output: Urine 2 0 Other: Voiding Method Diaper Diaper Diaper # Voids 2 - Exam General appearance: alert, morbidly obese 54-year-old gentleman, in no apparent distress, currently BMI 56 Head exam was generally normal. There was no scleral icterus or corneal arcus. Mucous membranes were moist. Neck was supple and without jugular venous distension, thyromegaly, or carotid bruits. Carotids were easily palpable bilaterally. There was no adenopathy. Eye exam: Present: normal appearance, PERRL, EOMI. Absent: scleral icterus, conjunctival injection, periorbital swelling ENT exam: Present: normal exam, mucous membranes moist, the patient has poor dentition and several missing teeth Respiratory exam: Present: Crackles in the posterior bases. Absent: respiratory distress, wheezes, rhonchi, stridor Cardiovascular Exam: Present: normal rhythm, tachycardia, normal heart sounds. Absent: systolic murmur, diastolic murmur, rubs, gallop, clicks GI/Abdominal exam: Present: soft, normal bowel sounds. Absent: distended, tende rness, guarding, rebound, rigid exam: Present: scrotal swelling (Severe), in addition to erythema involving the scrotal area extending to the thighs bilaterally and the area is warm and red. No masses. Extremities exam: Present: full ROM, normal capillary refill, other (Bilateral lower legs are edematous and weeping). Absent: normal inspection, tenderness, pedal edema, joint swelling, calf tenderness Neurological exam: Present: alert, oriented X3, CN II-XII intact Psychiatric exam: Present: normal affect, normal mood Skin exam: Present: warm, dry, intact, normal color. The patient has chronic lymphedema lower extremities bilaterally. The wound in the left lower extremity are quite superficial and noninfected this point in time. - Labs CBC & Chem 7: 12/07/19 06:19 12/07/19 06:19 Labs: Abnormal Lab Results - Last 24 Hours (Table) 12/06/19 12/06/19 12/07/19 Range/Units 11:57 20:17 06:19 Hct (39.0-53.0) % MCHC (31.0-37.0) g/dL RDW (11.5-15.5) % Lymphocytes # (Manual) (1.0-4.8) k/uL Sodium 136 L (137-145) mmol/L Chloride 90 L (98-107) mmol/L Carbon Dioxide 40 H (22-30) mmol/L BUN 54 H (9-20) mg/dL Creatinine 1.77 H (0.66-1.25) mg/dL Glucose 111 H (74-99) mg/dL POC Glucose (mg/dL) 193 H 122 H (75-99) mg/dL 12/07/19 12/07/19 Range/Units 06:19 06:29 Hct 53.7 H (39.0-53.0) % MCHC 28.8 L (31.0-37.0) g/dL RDW 17.5 H (11.5-15.5) % Lymphocytes # (Manual) 0.62 L (1.0-4.8) k/uL Sodium (137-145) mmol/L Chloride (98-107) mmol/L Carbon Dioxide (22-30) mmol/L BUN (9-20) mg/dL Creatinine (0.66-1.25) mg/dL Glucose (74-99) mg/dL POC Glucose (mg/dL) 106 H (75-99) mg/dL Microbiology - Last 24 Hours (Table) 12/05/19 19:30 Blood Culture - Preliminary Blood No Growth after 24 hours Assessment and Plan Assessment: 1 Dyspnea secondary to acute exacerbation of diastolic congestive heart failure with right lower lobe atelectasis/pleural effusion 2 Acute on chronic hypercapnic respiratory failure secondary to above with suspected obstructive sleep apnea with obesity/hypoventilation syndrome however the patient has refused to wear a CPAP Mask in the past. 3 Recent discharge following heart failure exacerbation 4 Chronic kidney disease stage 3-4 with an acute kidney injury on top of chronic renal failure. Current creatinine 1.64. Unable to obtain accurate output is a patient is incontinent 5 Hyperkalemia secondary to above 6 right lower extremity lymphedema with weeping 7 chronic ulceration in lower extremity bilaterally 8 chronic lymphedema of the lower extremity is bilaterally 9 Morbid obesity with a BMI of 56 10 chronic atrial fibrillation rate controlled not an anticoagulation due to previous episodes of GI bleed 11 hypothyroidism 12 diabetes mellitus 13 hypertension Plan Continue bronchodilators Continue IV diuretics Continue wound care to the lower extremities We'll follow him on an as-needed basis I, the cosigning physician, performed a history & physical examination of the patient. Lungs sounds have crackles in the bilateral posterior bases, diminished. Maintaining good O2 saturations in the 90s on 4 L/m per nasal cannula. I discussed the assessment and plan of care with my nurse prac titioner, Dina Mcguire. I attest to the above note as dictated by her.
[2019-12-07 12:10] LABS: Glucose,Whole Blood 123 mg/dL (75-99)
[2019-12-07] MEDS: SPIRONOLACTONE 25 MG TAB PO SCH (12:14)
[2019-12-07 16:57] LABS: Glucose,Whole Blood 173 mg/dL (75-99)
[2019-12-07 20:22] LABS: Glucose,Whole Blood 124 mg/dL (75-99)
[2019-12-07] MEDS: ATORVASTATIN 40 MG TAB PO SCH (20:52)
[2019-12-07] MEDS: METOPROLOL TARTRATE 50 MG TAB PO SCH (20:52)
[2019-12-08] MEDS: HYDROcodone/APAP 10-325MG 1 EACH TAB PO PRN ×3 (03:39→18:48)
[2019-12-08 06:15] LABS: Glucose,Whole Blood 117 mg/dL (75-99)
[2019-12-08] MEDS: FUROSEMIDE 10 MG/ML 4 ML VIAL IV SCH ×3 (06:24→20:41)
[2019-12-08] MEDS: LEVOTHYROXINE 125 MCG TAB PO SCH (06:24)
[2019-12-08] MEDS: INSULIN ASPART (NovoLOG) 100 UNIT/ML VIAL SQ SCH ×4 (06:39→20:49)
[2019-12-08 07:11] LABS: Calcium 8.6 mg/dL (8.4-10.2); Potassium 4.2 mmol/L (3.5-5.1)
[2019-12-08] MEDS: HEPARIN SODIUM,PORCINE 5,000 UNIT/ML 1 ML VIAL SQ SCH ×3 (09:57→23:00)
[2019-12-08] MEDS: METOPROLOL TARTRATE 50 MG TAB PO SCH ×2 (09:58→20:41)
[2019-12-08] MEDS: FERROUS SULFATE 325 MG TAB PO SCH ×2 (09:58→20:41)
[2019-12-08] MEDS: PANTOPRAZOLE 40 MG TABLET PO SCH (09:58)
[2019-12-08] MEDS: SPIRONOLACTONE 25 MG TAB PO SCH (09:58)
[2019-12-08] MEDS: ALLOPURINOL 300 MG TAB PO SCH (09:58)
[2019-12-08] MEDS: IPRATROPIUM-ALBUTEROL 3 ML NEB INHALATION PRN ×3 (11:06→20:24)
--- NOTE | 2019-12-08 11:39 | P.PN ---
Subjective Progress Note Date: 12/08/19 Principal diagnosis: shortness of breath Patient is a 54-year-old male with past medical history of atrial fibrillation not chronically on anticoagulation but takes aspirin, hypertension, chronic kidney disease stage III, morbid obesity, diastolic congestive heart failure who presented one week after discharge for acute exacerbation with similar complaints of trouble breathing and lying flat. In the emergency department he underwent an extensive evaluation. On arrival he was found to be hypoxic with an O2 sat of 87% on 3 L nasal cannula he was tachypnea with res piratory rate of 30 and his temperature is 97.1. Initial laboratory analysis demonstrated creatinine of 1.67 (better than baseline of 2), troponin 0.018, BNP 3370, and influenza nasal swabs were negative. He was diagnosed with exacerbation of diastolic congestive heart failure. He was started on IV diuresis and he was given 1 dose of antibiotics in the emergency department however he did not meet criteria for pneumonia and these were stopped. He also had an ABG obtained which showed chronic hypercapnic respiratory failure with compensation. He was initially offered BiPAP but refused it. Cardiology and pulmonary were consulted. The morning after admission he had episode of hyperkalemia and received Kayexalate. Pulmonary did diagnosed with acute on chronic hypoxic hypercapnic respiratory failure secondary suspected obstructive sleep apnea with obesity hypoventilation syndrome. Cardiology evaluated the patient and agreed with continuing Lasix. On the morning of 12/06 it was felt that he had an absent pulse in 1 foot and vascular surgery was consulted. They were able to Doppler pulses in his right lower extremity and diagnosed him with severe peripheral arterial disease in combination with venous insufficiency and recommended outpatient follow-up. Patient seen and examined at bedside. He states his breathing is better than admission but he still feels as though his shortness breath. He has chronic lower extremity edema and feels that he is having some bloating in his abdomen. He states his main reason for coming in his last hospital bedside could not lift him as high as it was supposed to and has been broken. He states that he has been compliant with his medications that he has been taking Lasix twice daily. present at bedside and all questions answered. 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 Objective - Vital Signs Vital signs: Vital Signs Temp 97.9 F 12/08/19 09:00 Pulse 80 12/08/19 11:16 Resp 20 03/16/20 09:00 BP 115/68 12/08/19 09:00 Pulse Ox 91 L 12/08/19 09:00 Intake & Output 12/07/19 12/08/19 12/08/19 18:59 06:59 18:59 Intake Total 1240 240 Balance 1240 240 Weight 203.1 kg 0 g Intake: Oral 1240 240 Other: Voiding Method Diaper Diaper Diaper # Voids 3 2 1 # Bowel Movements 2 - Exam General: non toxic, no distress, appears older than stated age Derm: dressing inplace right lower extremity, warm, dry Head: atraumatic, normocephalic, symmetric Eyes: EOMI, no lid lag, anicteric sclera Mouth: no lip lesion, mucus membranes moist Cardiovascular: S1S2 irreg, no murmur, positive posterior tibial pulse bilateral, Lungs: Decreased bs bilateral due to blody habitus, no rhonchi, no rales , no accessory muscle use Abdominal: soft, nontender to palpation, no guarding, unable to assess for organomegaly due to body habitus Ext: no gross muscle atrophy, 3+edema, no contractures Neuro: CN II-XI grossly intact, no focal neuro deficits Psych: Alert, oriented, appropriate affect - Labs CBC & Chem 7: 12/07/19 06:19 12/08/19 06:08 Labs: Abnormal Lab Results - Last 24 Hours (Table) 12/06/19 12/07/19 12/07/19 Range/Units 06:35 11:57 16:51 Chloride (98-107) mmol/L Carbon Dioxide (22-30) mmol/L BUN (9-20) mg/dL Creatinine (0.66-1.25) mg/dL Glucose (74-99) mg/dL POC Glucose (mg/dL) 123 H 173 H (75-99) mg/dL Procalcitonin 0.97 H (0.02-0.09) ng/mL 12/07/19 12/08/19 12/08/19 Range/Units 20:21 06:08 06:14 Chloride 90 L (98-107) mmol/L Carbon Dioxide 39 H (22-30) mmol/L BUN 60 H (9-20) mg/dL Creatinine 1.72 H (0.66-1.25) mg/dL Glucose 123 H (74-99) mg/dL POC Glucose (mg/dL) 124 H 117 H (75-99) mg/dL Procalcitonin (0.02-0.09) ng/mL Microbiology - Last 24 Hours (Table) 12/05/19 19:30 Blood Culture - Preliminary Blood No Growth after 48 hours Assessment and Plan Assessment: Acute exacerbation of diastolic congestive heart failure with right-sided pleural effusion -Continue with Lasix IV and Aldactone, monitor potassium closely. Patient is on Demadex at home. -Strict I's and O's as able the patient appears incontinent -Daily weights -Cardiology recommendations appreciated -Not on TRUDY inhibitor secondary renal insufficiency -Continue with beta daniel Acute on chronic hypoxic hypercapnic respiratory failure with probable underlying obstructive sleep apnea secondary to obesity hypoventilation syndrome -Patient has refused to wear CPAP mask in the past -Pulmonary recommendations Chronic kidney disease stage 3/4 with baseline creatinine of 2 -Monitor creatinine and potassium closely with Lasix and Aldactone -Currently creatinine is better than his baseline of approximately 2 -Avoid additional nephrotoxic agents A. fib, rate controlled not on anticoagulation due to prior GI bleed -Continue with telemetry -Continue with beta daniel therapy -Cardiology recommendations Chronic venous insufficiency with severe peripheral arterial disease and chronic lymphedema -Outpatient follow-up as able with vascular surgery Morbid obesity with BMI 56 -Encourage outpatient structured weight loss Diabetes mellitus type 2 -Sliding-scale insulin -Amaryl on hold -Follow blood sugars -A1c 6.52 Chronic: Hypertension Hypothyroidism Gout Hyperkalemia, resolved D/W case managment Vaishali will follow-up with heart regarding bed problem. DVT prophylaxis: heparin Discussed with: patient, nursing, , case management Anticipated discharge: in AM Anticipated discharge place: home with home health A total of 40 minutes was spent on the care of this complex patient more than 50% of the time was spent in counseling and care coordination.
[2019-12-08 12:28] LABS: Glucose,Whole Blood 141 mg/dL (75-99)
[2019-12-08 17:32] LABS: Glucose,Whole Blood 156 mg/dL (75-99)
[2019-12-08 20:04] LABS: Glucose,Whole Blood 185 mg/dL (75-99)
[2019-12-08] MEDS: ATORVASTATIN 40 MG TAB PO SCH (20:41)
[2019-12-09] MEDS: LEVOTHYROXINE 125 MCG TAB PO SCH (05:29)
[2019-12-09] MEDS: FUROSEMIDE 10 MG/ML 4 ML VIAL IV SCH ×3 (05:29→20:47)
[2019-12-09] MEDS: PANTOPRAZOLE 40 MG TABLET PO SCH (05:33)
[2019-12-09] MEDS: HYDROcodone/APAP 10-325MG 1 EACH TAB PO PRN ×3 (05:33→21:07)
[2019-12-09 06:10] LABS: Anisocytosis Slight; HCT 51.1 % (39.0-53.0); HGB 14.9 gm/dL (13.0-17.5); Hypochromasia Marked; MCHC 29.2 g/dL (31.0-37.0); MCV 95.7 fL (80.0-100.0); Mean Platelet Volume 8.9; Platelet Count 172 k/uL (150-450); RBC 5.34 m/uL (4.30-5.90); RDW 17.4 % (11.5-15.5); WBC 6.5 k/uL (3.8-10.6)
[2019-12-09 06:19] LABS: Glucose,Whole Blood 142 mg/dL (75-99)
[2019-12-09 06:20] LABS: Calcium 8.6 mg/dL (8.4-10.2); Magnesium 2.2 mg/dL (1.6-2.3); Potassium 4.1 mmol/L (3.5-5.1)
[2019-12-09] MEDS: INSULIN ASPART (NovoLOG) 100 UNIT/ML VIAL SQ SCH ×4 (06:23→21:01)
[2019-12-09] MEDS: HEPARIN SODIUM,PORCINE 5,000 UNIT/ML 1 ML VIAL SQ SCH ×3 (10:31→23:28)
[2019-12-09] MEDS: METOPROLOL TARTRATE 50 MG TAB PO SCH ×2 (10:32→20:48)
[2019-12-09] MEDS: ALLOPURINOL 300 MG TAB PO SCH (10:32)
[2019-12-09] MEDS: SPIRONOLACTONE 25 MG TAB PO SCH (10:32)
[2019-12-09] MEDS: FERROUS SULFATE 325 MG TAB PO SCH ×2 (10:32→20:48)
[2019-12-09] MEDS: IPRATROPIUM-ALBUTEROL 3 ML NEB INHALATION PRN (10:57)
[2019-12-09 11:46] LABS: Glucose,Whole Blood 125 mg/dL (75-99)
--- NOTE | 2019-12-09 16:29 | P.PN ---
Subjective Progress Note Date: 12/09/19 (delayed charting seen at 1030) Principal diagnosis: shortness of breath Patient is a 54-year-old male with past medical history of atrial fibrillation not chronically on anticoagulation but takes aspirin, hypertension, chronic kidney disease stage III, morbid obesity, diastolic congestive heart failure who presented one week after discharge for acute exacerbation with similar complaints of trouble breathing and lying flat. In the emergency department he underwent an extensive evaluation. On arrival he was found to be hypoxic with an O2 sat of 87% on 3 L nasal cannula he was tachypnea with respiratory rate of 30 and his temperature is 97.1. Initial laboratory analysis demonstrated creatinine of 1.67 (better than baseline of 2), troponin 0.018, BNP 3370, and influenza nasal swabs were negative. He was diagnosed with exacerbation of diastolic congestive heart failure. He was started on IV diuresis and he was given 1 dose of antibiotics in the emergency department however he did not meet criteria for pneumonia and these were stopped. He also had an ABG obtained which showed chronic hypercapnic respiratory failure with compensation. He was initially offered BiPAP but refused it. Cardiology and pulmonary were consulted. The morning after admission he had episode of hyperkalemia and received Kayexalate. Pulmonary did diagnosed with acute on chr onic hypoxic hypercapnic respiratory failure secondary suspected obstructive sleep apnea with obesity hypoventilation syndrome. Cardiology evaluated the patient and agreed with continuing Lasix. On the morning of 12/06 it was felt that he had an absent pulse in 1 foot and vascular surgery was consulted. They were able to Doppler pulses in his right lower extremity and diagnosed him with severe peripheral arterial disease in combination with venous insufficiency and recommended outpatient follow-up. His creatinine increased on 12/08 and is closely to his known baseline. Patient seen and examined at bedside. He reports just not feeling right/well. Very tired and fatigues. Feels as though he is sleeping okay. Breathing is unchanged. He has no nausea or change in appetite. Spoke with him and his about thinking about rehab to see if increased exercise tolerance/ mobility can help with symptoms. Objective - Vital Signs Vital signs: Vital Signs Temp 98.2 F 12/09/19 08:45 Pulse 95 12/09/19 11:07 Resp 22 12/09/19 10:57 BP 110/66 12/09/19 08:45 Pulse Ox 95 12/09/19 09:17 Intake & Output 12/08/19 12/09/19 12/09/19 18:59 06:59 18:59 Intake Total 240 400 750 Balance 240 400 750 Intake: Oral 240 400 750 Other: Voiding Method Diaper Diaper Diaper # Voids 3 2 - Exam General: non toxic, no distress, appears older than stated age Derm: dressing inplace right lower extremity, warm, dry Head: atraumatic, normocephalic, symmetric Eyes: EOMI, no lid lag, anicteric sclera Mouth: no lip lesion, mucus membranes moist Cardiovascular: S1S2 irreg, no murmur, positive posterior tibial pulse bilateral, Lungs: Decreased bs bilateral due to blody habitus, no rhonchi, no rales , no accessory muscle use Abdominal: soft, nontender to palpation, no guarding, unable to assess for organomegaly due to body habitus Ext: no gross muscle atrophy, 3+edema, no contractures Neuro: CN II-XI grossly intact, no focal neuro deficits Psych: Alert, oriented, appropriate affect - Labs CBC & Chem 7: 12/09/19 05:43 12/09/19 05:43 Labs: Abnormal Lab Results - Last 24 Hours (Table) 12/08/19 12/08/19 12/09/19 Range/Units 17:31 20:03 05:43 MCHC 29.2 L (31.0-37.0) g/dL RDW 17.4 H (11.5-15.5) % Chloride (98-107) mmol/L Carbon Dioxide (22-30) mmol/L BUN (9-20) mg/dL Creatinine (0.66-1.25) mg/dL Glucose (74-99) mg/dL POC Glucose (mg/dL) 156 H 185 H (75-99) mg/dL 12/09/19 12/09/19 12/09/19 Range/Units 05:43 06:18 11:40 MCHC (31.0-37.0) g/dL RDW (11.5-15.5) % Chloride 91 L (98-107) mmol/L Carbon Dioxide 40 H (22-30) mmol/L BUN 64 H (9-20) mg/dL Creatinine 1.83 H (0.66-1.25) mg/dL Glucose 124 H (74-99) mg/dL POC Glucose (mg/dL) 142 H 125 H (75-99) mg/dL Microbiology - Last 24 Hours (Table) 12/05/19 19:30 Blood Culture - Preliminary Blood No Growth after 72 hours Assessment and Plan Assessment: Acute exacerbation of diastolic congestive heart failure with right-sided pleural effusion -Continue with Lasix IV and Aldactone, monitor potassium closely. Patient is on Demadex at home. -Strict I's and O's as able the patient appears incontinent -Daily weights -Cardiology recommendations appreciated -Not on TRUDY inhibitor secondary renal insufficiency -Continue with beta daniel Acute on chronic hypoxic hypercapnic respiratory failure with probable underly ing obstructive sleep apnea secondary to obesity hypoventilation syndrome -Patient has refused to wear CPAP mask in the past -Pulmonary recommendations Chronic kidney disease stage 3/4 with baseline creatinine of 2 Cr nearing baseline -Monitor creatinine and potassium closely with Lasix and Aldactone -Currently creatinine is better than his baseline of approximately 2 -Avoid additional nephrotoxic agents A. fib, rate controlled not on anticoagulation due to prior GI bleed -Continue with telemetry -Continue with beta daniel therapy -Cardiology recommendations Chronic venous insufficiency with severe peripheral arterial disease and chronic lymphedema -Outpatient follow-up as able with vascular surgery Morbid obesity with BMI 56 -Encourage outpatient structured weight loss Diabetes mellitus type 2 -Sliding-scale insulin -Amaryl on hold -Follow blood sugars -A1c 6. Chronic: Hypertension Hypothyroidism Gout Hyperkalemia, resolved PT/OT eval, decrease IV diuresis due to increasing creatinine, patient and to consider retirement DVT prophylaxis: heparin Discussed with: patient, nursing, , case management Anticipated discharge: i1-[address]: SNF vs home with home health A total of 30 minutes was spent on the care of this complex patient more than 50% of the time was spent in counseling and care coordination.
[2019-12-09 17:01] LABS: Glucose,Whole Blood 158 mg/dL (75-99)
[2019-12-09 20:42] LABS: Glucose,Whole Blood 125 mg/dL (75-99)
[2019-12-09] MEDS: ATORVASTATIN 40 MG TAB PO SCH (20:47)
[2019-12-10] MEDS: IPRATROPIUM-ALBUTEROL 3 ML NEB INHALATION PRN ×5 (00:23→21:05)
[2019-12-10] MEDS: HYDROcodone/APAP 10-325MG 1 EACH TAB PO PRN ×3 (04:41→21:45)
[2019-12-10 05:56] LABS: Glucose,Whole Blood 139 mg/dL (75-99)
[2019-12-10 06:27] LABS: Anisocytosis Slight; HCT 50.1 % (39.0-53.0); HGB 13.9 gm/dL (13.0-17.5); Hypochromasia Marked; MCHC 27.8 g/dL (31.0-37.0); MCV 96.9 fL (80.0-100.0); Macrocytosis Slight; Mean Platelet Volume 9.2; Platelet Count 193 k/uL (150-450); RBC 5.17 m/uL (4.30-5.90); RDW 17.3 % (11.5-15.5); WBC 6.8 k/uL (3.8-10.6)
[2019-12-10] MEDS: LEVOTHYROXINE 125 MCG TAB PO SCH ×2 (06:30→06:31)
[2019-12-10] MEDS: INSULIN ASPART (NovoLOG) 100 UNIT/ML VIAL SQ SCH ×4 (06:32→21:45)
[2019-12-10 06:45] LABS: Calcium 8.6 mg/dL (8.4-10.2)
[2019-12-10 07:41] LABS: ABG PCO2 77 mmHg (35-45)
[2019-12-10] MEDS: ALLOPURINOL 300 MG TAB PO SCH (08:51)
[2019-12-10] MEDS: SPIRONOLACTONE 25 MG TAB PO SCH (08:51)
[2019-12-10] MEDS: FERROUS SULFATE 325 MG TAB PO SCH ×2 (08:51→21:45)
[2019-12-10] MEDS: FUROSEMIDE 10 MG/ML 4 ML VIAL IV SCH ×2 (08:51→21:43)
[2019-12-10] MEDS: HEPARIN SODIUM,PORCINE 5,000 UNIT/ML 1 ML VIAL SQ SCH ×2 (08:51→16:59)
[2019-12-10] MEDS: PANTOPRAZOLE 40 MG TABLET PO SCH (08:53)
[2019-12-10] MEDS: METOPROLOL TARTRATE 50 MG TAB PO SCH ×2 (09:29→21:43)
[2019-12-10 11:52] LABS: Glucose,Whole Blood 141 mg/dL (75-99)
[2019-12-10 16:48] LABS: Glucose,Whole Blood 100 mg/dL (75-99)
[2019-12-10 20:41] LABS: Glucose,Whole Blood 154 mg/dL (75-99)
[2019-12-10] MEDS: ATORVASTATIN 40 MG TAB PO SCH (21:43)
--- NOTE | 2019-12-10 23:36 | P.PN ---
Progress Note - Text Progress Note Date: 12/10/19 Chief Complaint: Short of breath History of presenting complaint: This is a pleasant 54-year-old patient of visiting physician Dr. Yuri Atwood. Patient was here in January of last year with extended hospital stay. Patient was then admitted with severe cellulitis with multiple organisms including both lower extremities groin scrotal area. He then also had septic shock. Also had a UTI. Chronic stable medical conditions include chronic medical debility, diabetes, GERD, hypertension, chronic kidney disease diabetic nephropathy, bilateral chronic lower extremity wounds which is cared for by son and hypothyroidism atrial fibrillation. Patient recently discharged from hospital on November 29 following CHF exacerbation. He did get admitted with shortness of breath felt to be CHF exacerbation and obesity hypoventilation syndrome. Today-sitting on bed. Did tolerate her diet. Breathing is stable. at the bedside. Review of systems: Was done for constitutional, cardiovascular, GI, pulmonary. relevant finding as above Active Medications Hydrocodone Bitart/Acetaminophen ([place] 10) 1 each PO Q6H PRN PRN Reason: Pain Last Admin: 12/10/19 21:45 Dose: 1 each Documented by: Albuterol/Ipratropium (Duoneb 0.5 Mg-3 Mg/3 Ml Soln) 3 ml INHALATION RT-Q2H PRN PRN Reason: Shortness Of Breath Or Wheezing Last Admin: 12/10/19 21:05 Dose: 3 ml Documented by: Allopurinol (Zyloprim) 300 mg PO DAILY [facility] Last Admin: 12/10/19 08:51 Dose: 300 mg Documented by: Atorvastatin Calcium (Lipitor) 40 mg PO HS [facility] Last Admin: 12/10/19 21:43 Dose: 40 mg Documented by: Ferrous Sulfate (Feosol) 325 mg PO BID [facility] Last Admin: 12/10/19 21:45 Dose: 325 mg Documented by: Furosemide (Lasix) 40 mg IV Q12HR [facility] Last Admin: 12/10/19 21:43 Dose: 40 mg Documented by: Heparin Sodium (Porcine) (Heparin) 5,000 unit SQ Q8HR [facility] Last Admin: 12/10/19 16:59 Dose: 5,000 unit Documented by: Insulin Aspart (Novolog) 0 unit SQ ACHS [facility]; Protocol Last Admin: 12/10/19 21:45 Dose: 2 unit Documented by: Levothyroxine Sodium (Synthroid) 125 mcg PO DAILY@0630 [facility] Last Admin: 12/10/19 06:31 Dose: 125 mcg Documented by: Metoprolol Tartrate (Lopressor) 25 mg PO BID [facility] Last Admin: 12/10/19 21:43 Dose: 25 mg Documented by: Pantoprazole Sodium (Protonix) 40 mg PO DAILY [facility] Last Admin: 12/10/19 08:53 Dose: 40 mg Documented by: Spironolactone (Aldactone) 25 mg PO DAILY [facility] Last Admin: 12/10/19 08:51 Dose: 25 mg Documented by: Physical examination: VITAL SIGNS: 97.8, 100, 20, blood pressure 120/63, 96% on 3 L GENERAL: Propped up in bed, tired EYES: Pupils equal. Conjunctiva normal. HEENT: External appearance of nose and ears normal, oral cavity grossly normal. NECK: Short and thick, JVD unable to assess mass not palpable. HEART: Heart sounds are muffled; edema present. LUNGS:[ Respiratory rate increased; diminished breath sounds. ABDOMEN: Soft, nontender, liver spleen not palpable, no masses palpable. PSYCH: Alert and oriented x3; mood and affect normal. DERMATOLOGICAL: Dryness of the skin on lower extremity and wounds of the left jasmine, chronic skin changes INVESTIGATIONS, reviewed in the clinical context: White count 6.8 hemoglobin 13.9 pressure 4.0 bun 64 creatinine 1.9 to Assessment: - acute on chronic congestive heart failure exacerbation, from diastolic dysfunction and right-sided pleural effusion -Acute on chronic hypoxic hypercapnic respiratory failure possibly from obesity hypoventilation syndrome -Persistent atrial fibrillation, rate controlled -Morbid obesity BMI 74.4 -Chronic medical debility due to superobesity -Bilateral lower extremity superficial wounds , secondary to venous insufficiency -Essential hypertension -GERD -Diabetes mellitus type 2 -Hypothyroidism -Chronic kidney disease stage III likely combination of diabetic nephropathy and hypertensive nephrosclerosis Plan: Care was discussed with the 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 Arranging for hospital bed to be delivered-this will happen tomorrow. Current bed is broken. Patient will like to go home by by ambulance
[2019-12-11] MEDS: HEPARIN SODIUM,PORCINE 5,000 UNIT/ML 1 ML VIAL SQ SCH ×2 (00:10→08:08)
[2019-12-11] MEDS: HYDROcodone/APAP 10-325MG 1 EACH TAB PO PRN ×2 (05:11→11:31)
[2019-12-11] MEDS: LEVOTHYROXINE 125 MCG TAB PO SCH (05:11)
[2019-12-11 06:43] LABS: Glucose,Whole Blood 164 mg/dL (75-99)
[2019-12-11 08:04] VITALS: BP 109/81; RESP 18; TEMP 97.8
[2019-12-11] MEDS: METOPROLOL TARTRATE 50 MG TAB PO SCH (08:06)
[2019-12-11] MEDS: SPIRONOLACTONE 25 MG TAB PO SCH (08:08)
[2019-12-11] MEDS: PANTOPRAZOLE 40 MG TABLET PO SCH (08:08)
[2019-12-11] MEDS: FERROUS SULFATE 325 MG TAB PO SCH (08:08)
[2019-12-11] MEDS: INSULIN ASPART (NovoLOG) 100 UNIT/ML VIAL SQ SCH ×2 (08:09→11:31)
[2019-12-11] MEDS: FUROSEMIDE 10 MG/ML 4 ML VIAL IV SCH (08:09)
[2019-12-11] MEDS: ALLOPURINOL 300 MG TAB PO SCH (08:09)
[2019-12-11 11:27] LABS: Glucose,Whole Blood 149 mg/dL (75-99)
[2019-12-11] MEDS: IPRATROPIUM-ALBUTEROL 3 ML NEB INHALATION PRN (11:36)
[2019-12-11 11:49] VITALS: PULSE 76
--- NOTE | 2019-12-11 21:18 | P.DS ---
Providers Date of admission: 12/05/19 21:05 Expected date of discharge: 12/11/19 Attending physician: Sam Canas Consults: 12/06/19 01:59 Consult Physician Routine Consulting Provider: Iva Martinez Consult Reason/Comments: obesity hypoventilation syndrome Do you want consulting provider notified?: Yes, Notify in am 12/06/19 11:47 Consult Physician Routine Consulting Provider: Kayleigh Martínez Consult Reason/Comments: CHF Do you want consulting provider notified?: Yes 12/07/19 08:22 Consult Physician Routine Consulting Provider: Phi Vera Consult Reason/Comments: Cool right extremity, no doppler pulses heard. Do you want consulting provider notified?: Yes Primary care physician: Yuri Myrick MD Hospital Course: Chief Complaint: Short of breath History of presenting complaint: This is a pleasant 54-year-old patient of visiting physician Dr. Yuri Atwood. Patient was here in January of last year with extended hospital stay. Patient was then admitted with severe cellulitis with multiple organisms including both lower extremities groin scrotal area. He then also had septic shock. Also had a UTI. Chronic stable medical conditions include chronic medical debility, diabetes, GERD, hypertension, chronic kidney disease diabetic nephropathy, bilateral chronic lower extremity wounds which is cared for by son and hypothyroidism atrial fibrillation. Patient recently discharged from hospital on November 29 following CHF exacerbation. admitted with shortness of breath felt to be CHF exacerbation and obesity hypoventilation syndrome. Today-beginning stable. No new issues. Had a lengthy discussion with the patient and his . They understand patient's guarded prognosis. Questions were answered. Ambulance will be transporting the patient home.. Discussion and discharge planning more than 35 minutes Consultation: Dr. Martinez and partners from pulmonary Dr. VC Martínez from cardiology Physical examination: VITAL SIGNS: 97.8, 106, 18, blood pressure 109/81, 96% on 3 L GENERAL: Propped up in bed, awake EYES: Pupils equal. Conjunctiva normal. HEENT: External appearance of nose and ears normal, oral cavity grossly normal. NECK: Short and thick, JVD unable to assess mass not palpable. HEART: Heart sounds are muffled; edema present. LUNGS:[ Respiratory rate increased; diminished breath sounds. ABDOMEN: Soft, nontender, liver spleen not palpable, no masses palpable. PSYCH: Alert and oriented x3; mood and affect normal. DERMATOLOGICAL: Dryness of the skin on lower extremity and wounds of the left jasmine, chronic skin changes INVESTIGATIONS, reviewed in the clinical context: White count 6.8 hemoglobin 13.9 pressure 4.0 bun 64 creatinine 1.9 to Assessment: - acute on chronic congestive heart failure exacerbation, from diastolic dysfunction and right-sided pleural effusion -Acute on chronic hypoxic hypercapnic respiratory failure possibly from obesity hypoventilation syndrome -Persistent atrial fibrillation, rate controlled -Morbid obesity BMI 74.4 -Chronic medical debility due to superobesity -Bilateral lower extremity superficial wounds , secondary to venous insufficien cy -Essential hypertension -GERD -Diabetes mellitus type 2 -Hypothyroidism -Chronic kidney disease stage III likely combination of diabetic nephropathy and hypertensive nephrosclerosis Disposition: Home Patient Condition at Discharge: Undetermined Plan - Discharge Summary Discharge Rx Participant: No New Discharge Prescriptions: New Spironolactone [Aldactone] 25 mg PO DAILY #30 tab Ipratropium-Albuterol Nebulize [Duoneb 0.5 mg-3 mg/3 ml Soln] 3 ml INHALATION TID #90 ml Continue Hydrocodone/Acetaminophen [[place] 10-325] 1 tab PO Q6H PRN PRN Reason: Pain Pantoprazole Sodium [Protonix] 40 mg PO DAILY #30 tablet. Ammonium Lactate Lotion [Lac-Hydrin 12% Lotion] 1 applic TOPICAL BID PRN PRN Reason: Skin Irritation Allopurinol [Zyloprim] 300 mg PO DAILY Ferrous Sulfate [Iron (65 MG Elemental)] 325 mg PO BID Ergocalciferol (Vitamin D2) [Drisdol] 50,000 unit PO MO Nystatin [Nystop] 1 applic TOPICAL BID PRN PRN Reason: Skin Irritation Torsemide [Demadex] 20 mg PO BID #60 tab Methylphenidate HCl 20 mg PO DAILY Levothyroxine Sodium [Synthroid] 125 mcg PO DAILY Atorvastatin [Lipitor] 40 mg PO HS #30 tab Changed Metoprolol Tartrate [Lopressor] 25 mg PO BID #0 Discontinued Glimepiride [Amaryl] 4 mg PO DAILY Discharge Medication List Hydrocodone/Acetaminophen [[place] 10-325] 1 tab PO Q6H PRN 10/12/16 [History] Pantoprazole Sodium [Protonix] 40 mg PO DAILY #30 tablet. 11/10/16 [Rx] Allopurinol [Zyloprim] 300 mg PO DAILY 10/21/18 [History] Ammonium Lactate Lotion [Lac-Hydrin 12% Lotion] 1 applic TOPICAL BID PRN 10/21/18 [History] Ergocalciferol (Vitamin D2) [Drisdol] 50,000 unit PO MO 10/21/18 [History] Ferrous Sulfate [Iron (65 MG Elemental)] 325 mg PO BID 10/21/18 [History] Nystatin [Nystop] 1 applic TOPICAL BID PRN 02/12/19 [History] Torsemide [Demadex] 20 mg PO BID #60 tab 02/25/19 [Rx] Levothyroxine Sodium [Synthroid] 125 mcg PO DAILY 11/12/19 [History] Methylphenidate HCl 20 mg PO DAILY 11/12/19 [History] Atorvastatin [Lipitor] 40 mg PO HS #30 tab 11/15/19 [Rx] Ipratropium-Albuterol Nebulize [Duoneb 0.5 mg-3 mg/3 ml Soln] 3 ml INHALATION TID #90 ml 12/11/19 [Rx] Metoprolol Tartrate [Lopressor] 25 mg PO BID #0 12/11/19 [Rx] Spironolactone [Aldactone] 25 mg PO DAILY #30 tab 12/11/19 [Rx] Follow up Appointment(s)/Referral(s): [facility], [NON-STAFF] - Yuri Myrick MD [Primary Care Provider] - 1-2 days (Office will call you with your appointment.) Patient Instructions/Handouts: Heart Failure (DC), Heart Healthy Diet (DC) Activity/Diet/Wound Care/Special Instructions: CHF 1. Weigh yourself every morning after you urinate. If you gain 2-3 pounds overnight or 5 pounds in one week, call your primary physician for guidance on your medications. Keep a log of your weights. 2. Avoid salt, or foods with hidden salt. Extra salt makes your heart work harder and traps the fluid in your body for longer. 3. Take all of your medications as directed, especially your water pills. NEVER skip a dose. 5. Elevate your legs when you are not up moving around to help with circulation and prevent swelling. 6. Call your physician if you notice any extra swelling in your legs, ankles, feet or abdomen, if you have a new dry cough, if your shortness of breath worsens with activity or at rest, or if you feel more fatigued. Discharge Disposition: HOME WITH HOME HEALTH SERVICES Care Plan Goals (MU): pts Palliative score is 4 - ECF on D/C
== END 2019-12-11 14:49 | disposition home health service (06) | DRG 291 ==
LOC: EC 18:57 → 3SCARD 21:05 → 4SSUR 12-10 20:31
PROVIDERS: ADMIT Hospitalist; ATTEND Hospitalist
DX: I13.0 Hypertensive heart and chronic kidney disease with heart failure and stage 1 through stage 4 chronic kidney disease, or unspecified chronic kidney disease (principal); I50.33 Acute on chronic diastolic (congestive) heart failure; J96.21 Acute and chronic respiratory failure with hypoxia; J96.22 Acute and chronic respiratory failure with hypercapnia; E66.2 Morbid (severe) obesity with alveolar hypoventilation; E87.2 Acidosis; I48.19 Other persistent atrial fibrillation; J44.1 Chronic obstructive pulmonary disease with (acute) exacerbation; J98.11 Atelectasis; N17.9 Acute kidney failure, unspecified; N18.4 Chronic kidney disease, stage 4 (severe); Z68.43 Body mass index [BMI] 50.0-59.9, adult; L97.929 Non-pressure chronic ulcer of unspecified part of left lower leg with unspecified severity; L97.919 Non-pressure chronic ulcer of unspecified part of right lower leg with unspecified severity; E03.9 Hypothyroidism, unspecified; E11.22 Type 2 diabetes mellitus with diabetic chronic kidney disease; E11.51 Type 2 diabetes mellitus with diabetic peripheral angiopathy without gangrene; E87.5 Hyperkalemia; F41.9 Anxiety disorder, unspecified; I45.10 Unspecified right bundle-branch block; I87.2 Venous insufficiency (chronic) (peripheral); I89.0 Lymphedema, not elsewhere classified; K21.9 Gastro-esophageal reflux disease without esophagitis; M10.9 Gout, unspecified; Z87.440 Personal history of urinary (tract) infections; R32 Unspecified urinary incontinence; Z74.01 Bed confinement status; Z79.82 Long term (current) use of aspirin; Z79.84 Long term (current) use of oral hypoglycemic drugs; Z79.890 Hormone replacement therapy; Z79.899 Other long term (current) drug therapy; Z83.3 Family history of diabetes mellitus; Z87.01 Personal history of pneumonia (recurrent); Z87.11 Personal history of peptic ulcer disease; Z87.891 Personal history of nicotine dependence; Z91.19 Patient's noncompliance with other medical treatment and regimen; Z99.81 Dependence on supplemental oxygen; Z86.14 Personal history of Methicillin resistant Staphylococcus aureus infection; Z88.8 Allergy status to other drugs, medicaments and biological substances; E11.622 Type 2 diabetes mellitus with other skin ulcer
CPT/HCPCS: 36415; 36600; 71045; 80048; 80053; 82805; 83605; 83735; 83880; 84145; 84443; 84484; 85025; 85027; 85610; 85730; 87040; 87502; 93005; 93970; 94640; 94760; 96365; 96367; 99285